=== PATIENT | male | born 1950 | race Caucasian/White ===

== ENCOUNTER 2018-02-06 12:05 | Inpatient (IN) | payer MEDICARE, MEDICAID ==
[~2018-02-06] VITALS: Ht 185.4 cm; Wt 130.2 kg
[~2018-02-06 12:05] MED LIST: ALPR.25T; ALPR0.2550 PO; ATEN100T88; ATEN100T88 PO; CITA20TA4 PO; GABA800T2 PO; HYDR-700; IBUP-15 PO; IBUP-792; KCL10CCR; LISI10TA; LISI10TA PO; LRT10T PO; OMEP20CA6; OMEP20TA2 PO; PHEN-633 PO; PHEN300C; POTA10CA43 PO; TOPI50TA2; TORS20TA2; TORS20TA2 PO; ZLP10T PO; ZOLP10TA
[2018-02-06 14:34] VITALS: BP 114/53
--- NOTE | 2018-02-06 14:52 | ST Cognitive Linguistic Eval ---
Speech Evaluation-General Medical Diagnosis Stroke-Like Symptoms Therapy Diagnosis Therapy Diagnosis: Hyperfunctional Dysphonia; Mild Cognitive Impairment Referral Referring Physician: Dr. Ehsan Roque Reason for Referral: Evaluation/Treatment Cognitive Evaluation Medical History Pertinent Medical History: HTN АНДРЕЙ, left temporal lobectomy secondary to seizure disorder (09/17/2011), tympanoplasty (12/27/2011) Current History The patient was recently admitted following stroke-like symptoms. Per patient, his left face demonstrated edema which caused his left eye to close. Reviewed History: Yes Speech PLF-Current Status Prior Level of Function The patient denied speech, language, or cognition difficulties prior to admission for the stroke-like symptoms at an outside facility. Subjective The patient was seated upright in recliner upon entrance. The patient greeted the clinician and was agreeable to participation in the speech, language, and cognitive evaluation. Language Eval: Auditory Comprehends Simple Yes/No Ques: Functional Indent/Objects Multiple Vazquez: Functional Ident/Pics in Multiple Vazquez: Functional Follows 1-Step Commands: Functional Follows Complex Directions: Functional Follows General Conversations: Functional To note, the patient is hard of hearing on the left side. Per patient, he had a hearing aid, however, misplaced it prior to admission at the outside facility. Language Eval: Verbal Language Completes Spontaneous Greeting: Functional Produces Auto, Serial Info: Functional Imitates Simple Words/Phrases: Functional Word Finding: Mild Requests Basic Needs: Functional States Basic Personal Info: Functional Expresses Complex Ideas: Functional Language Evaluation: Reading The patient stated "reading will easier when I have my glasses here but I don't have any problem doing it." Language Evaluation: Writing Writes to Simple Dictation: Functional (The patient reports his writing is "more sloppy" than it used to be prior to admission at the outside facility.) Cognitive Patient Orientation The patient is independently oriented to self, location, month, year, and day of week. Objective Cognitive Domain Attention: WNL Memory: Mild Problem Solving: Mild Objective Oral Motor/Speech Production The patient demonstrated left facial edema causing asymmetry on this side. The patient's vocal quality is pressed, strained, and harsh with limited breath support. Impression The patient presents with hyperfunctional dysphonia and a mild cognitive impairment, most notably with memory. Per patient, "I have just felt a little foggy since this all started." Communication/Social Cognition Comprehension: 5 Expression: 5 Social Interaction: 5 Problem Solvin Memory: 4 Speech Patient Assess Expression of Ideas/Wants: Exhibits (3) Understanding Vebal Content: Usually Understands (3) Brief Interview-Mental Status: Yes Repetition of Three Words: Three (3) Temporal Orientation: Year: Correct (3) Temporal Orientation: Month: Accurate within 5 days(2) Temporal Orientation: Day: Correct (1) Recall : Wear to say "Sock": No, could not recall (0) Recall : Color: Yes, after cueing (1) Recall : Bed: No, could not recall (0) Speech Short Term Goals Short Term Goals Short Term Goals 1. The patient will demonstrate hyperfunctional voice exercises with 80% accuracy and mild clinician cueing. 2. The patient will demonstrate and recall three functional memory strategies for use at home, independently. Time Frame-STG: One Week Speech Senior Care Goals Senior Care Goals 1. The patient will demonstrated improved expressive communication and cognitive skill for increased function and safety in the least restrictive setting. Time Frame: Three Weeks Comprehension: 5 Expression: 5 Social Interaction: 5 Problem Solvin Memory: 5 Speech-Plan Treatment Plan Speech Therapy Treatment Plan: Continue Plan of Care Continue skilled speech pathology for improved expressive communication. Treatment Duration: Feb 27, 2018 Frequency: Modified Program (IRF) (Four to five times per week.) Estimated Hrs Per Day: .5 hour per day Rehab Potential: Guarded Safety Risks/Education Teaching Recipient: Patient Teaching Methods: Discussion Response to Teaching: Verbalize Understanding Education Topics Provided: Results, Recommendations, Plan of Care Time Speech Therapy Time In: 14:23 Speech Therapy Time Out: 14:43 Total Billed Time: 20 Billed Treatment Time 1, SHAJI GARY Feb 06, 2018 14:52
[2018-02-06] MEDS ORDERED: NITROGLYCERIN 0.4 MG SL TABS BTL 25'S SL PRN (15:00)
[2018-02-06] MEDS ORDERED: ACETAMINOPHEN 500 MG TAB (TYLENOL) PO PRN (15:00)
[2018-02-06] MEDS ORDERED: PNEUMOCOCCAL VACCINE 25 MCG/0.5 ML VIAL IM ONE (15:30)
[2018-02-06] MEDS ORDERED: INFLUENZA TRIvalent 2017-2018 0.5 ML/45 MCG SYR IM ONE ×2 (15:30→17:00)
--- NOTE | 2018-02-06 15:46 | PM&R Post Admission Assessment ---
Post Admission Physician Asses The preadmission screen agrees with the post admission assessment that the patient is a good candidate for inpatient rehabilitation. The patient will have a comprehensive program of inpatient rehabilitation with a goal of maximizing level of functional independence prior to discharge home with [facility]. The patient will have PT/OT ninety minutes per day, each discipline , five days a week for gait, strengthening, conditioning, balance, ADLs, any patient/family/caregiver training as necessary. Speech therapy to do cognitive and speech assessment and treat as indicated 3 to 5 days a week for 2 weeks for 30 to 45 min per session. Rehabilitation nursing to assist with bowel, bladder, skin, wound care, medication administration, pain management. Automatic Beading Lathe Operator to assist with discharge planning, community reentry. SCD's and Hep SUB CUT for DVT prophylaxis. He appears to be well motivated to participate in three hours of therapy a day. He should be able to tolerate three hours of therapy a day from a medical standpoint. He should benefit from the three hours of therapy a day. He has a reasonable discharge plan, reasonable discharge rehabilitation goals and a supportive family. He has various comorbidities that need to be closely monitored with medications and treatments adjusted on a daily basis as needed. These include: [] Barriers to discharge for this patient who had been independent prior to this are for him to be modified independent to supervision for ADLs and mobility skills prior to discharge home with [family], so as to lessen the burden of the caregivers. Risks for this patient include: 1. Fall 2. Fracture 3. DVT 4. Pulmonary embolism 5. Wound infection 6. Skin breakdown 7. Contractures 8. Poorly controlled pain 9. Urinary retention 10. UTI 11. Respiratory infection 12. Aspiration 13. Recurrent seizures 14. Recurrent Otitis media 14. Angina 15. Poorly controlled HTN 16. Worsening depression 17. Poorly controlled DM Estimated Length of Stay: 18 days Prognosis: Rehab prognosis appears good for goal of discharge home with [facility] modified independent to supervision for ADLs and mobility skills. The patient had been Modified Independent and living in his own apartment prior to this He has a supportive daughter nearby [facility] CODE 03.9 Etiologic DX hemiparasis/Plegia left side VALERIE BROWN MD Feb 06, 2018 15:46
[2018-02-06] MEDS ORDERED: ARTIFICAL TEARS 0.4 ML UNIT DOSE (REFRESH PLUS) OU PRN (16:30)
--- NOTE | 2018-02-06 16:32 | HISTORY AND PHYSICAL ---
DATE OF SERVICE: CHIEF COMPLAINT: Difficulty with walking. HISTORY OF PRESENT ILLNESS: The patient is a 67-year-old male with a history of seizures, who underwent a craniotomy and a left temporal lobectomy for uncontrolled seizures at [facility]. This was done more than a year ago. He returned to their facility for assessment and treatment of slurred speech and facial asymmetry. He was negative for stroke. The patient has chronic mastoiditis and was seen by neurology, critical care, ENT, ophthalmology and rehabilitation, medicine. The patient was placed on antibiotic eye ointment and otic antibiotic drops and Bactrim for an ongoing treatment of his various conditions. MRI of the head on 01/31/2018 showed prior left craniotomy and partial left temporal lobectomy with unchanged left temporal encephalomalacia, also prior left mastoidectomy with persistent opacification of few residual left mastoid air cells, a small right mastoid effusion also remains. The patient has been having Botox injections for ptosis and facial pain and he has decreased vision in the left eye. There was no evidence of acute infarct on MRI. No orbital mass or evidence of optic neuritis. As the patient has residual left-sided weakness, he is left hand dominant, he had been independent, but disabled prior to this, living in an apartment in [place], [place]. Dr. Manica is his [facility] PCP. He has seen cardiology here in the past for coronary artery disease and has had an echocardiogram and cardiac catheterization in the past. Currently, he requires assistance for his ADLs and mobility skills. 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 PAST SURGICAL HISTORY: Left temporal lobectomy for uncontrolled seizures as per above, mastoidectomy on the left, tympanoplasty, craniectomy, infected bone flap removal, right ankle surgery, appendectomy, carpal tunnel release on the right, cataract extraction, bilateral tonsillectomy, rotator cuff repair on the left, vagal nerve stimulation. ALLERGIES: No known medication allergies. FAMILY HISTORY: Noncontributory. SOCIAL HISTORY: He is , lives alone. REVIEW OF SYSTEMS: Ten-point review of systems significant for left-sided weakness, decreased vision left eye, neuropathic pain, left side of body swelling, periorbital area and facial pain. MEDICATIONS: Tylenol 650 mg p.o. q.4 hours as needed for pain, allopurinol 100 mg p.o. daily, amlodipine 5 mg p.o. daily, enteric-coated aspirin 81 mg p.o. every day, atenolol 100 mg p.o. daily, Lipitor 20 mg p.o. at bedtime, baclofen 10 mg p.o. t.i.d., Refresh eyedrops 1 drop to both eyes four times daily, tofogliflozin 10 mg p.o. daily, Colace 100 mg p.o. b.i.d., erythromycin eye ointment apply to both eyes at bedtime, Proscar 5 mg p.o. daily, gabapentin 800 mg p.o. q.8 hours, Amaryl 2 mg p.o. b.i.d., heparin subq 5000 units q.8 hours, hydrocodone/APAP 5/325 one to two tablets p.o. q.4 hours as needed for pain, ibuprofen 600 mg p.o. q.12 hours as needed for mild pain, Januvia 100 mg p.o. daily, Lidoderm patch apply topically to affected area and remove in 12 hours, lisinopril 20 mg p.o. daily, Claritin 10 mg p.o. daily, Meloxicam 7.5 mg p.o. daily, metformin 500 mg p.o. b.i.d., Medrol Dosepak take as directed and taper for 6 days, Remeron 45 mg p.o. at bedtime, nitroglycerin 0.4 mg sublingual p.r.n. chest pain, Floxin four drops in affected ear as directed twice daily, omeprazole 20 mg p.o. daily, phenantoin sustained release 100 mg 3 capsules daily, KCl 20 mEq p.o. daily, Senokot-S 1 tablet p.o. b.i.d., Zoloft 300 mg p.o. q.a.m., Demadex 20 mg p.o. b.i.d., Bactrim-DS 1 tablet p.o. b.i.d. for 14 days. PHYSICAL EXAMINATION: GENERAL: Significant for somewhat obese male, appearing his stated age, sitting in a chair complaining of left-sided pain and weakness, no acute distress. VITAL SIGNS: He is afebrile, respirations 22, blood pressure 114/53, O2 sat 96% on room air. HEENT: Speech is somewhat slowed, but comprehensible. He has ptosis left periorbital area and swelling with decreased vision. Vision is grossly intact on the right. Hearing is grossly intact. No oral lesion is noted. NECK: Supple without mass. CARDIOVASCULAR: Regular rate and rhythm. RESPIRATORY: Chest is clear. ABDOMEN: Obese, soft, benign. Bowel sounds present. EXTREMITIES: Trace edema both ankles, no calf tenderness. MUSCULOSKELETAL: He has functional passive range of motion in all 4 extremities. NEUROLOGIC: Cognition appears mildly slowed, but he is alert and oriented. Sensation, he has a neuropathic type pain and sensitivity over the left face and arm and leg. He has a mild left hemiparesis on his dominant side as compared to the right Strength 2+/5 LUE. RLE 5/5 RUE 4/5 Left Quad 3/5 Hip flex 2/5 lafte ankle 2/5 . IMPRESSION: 1. Left hemiparesis with a resulting decline in functional independence. 2. Status post craniotomy remote for left temporal lobectomy for treatment of intractable seizures. 3. Left mastoiditis, status post mastoidectomy. 4. Chronic otitis media, left ear, on medication. 5. Anxiety/depression, followed by psychiatry at [facility], on medication. 6. Left macular hole and bilateral blepharitis edema with decreased vision. 7. Chronic migraines, status post craniectomy, on medication. 8. Diabetes mellitus, controlled with medication. 9. Remote history of suicide attempt. 10. Coronary artery disease, status post myocardial infarction. 11. Benign prostatic hypertrophy. 12. Obstructive sleep apnea on continuous positive airway pressure at home. PLAN: The patient will have a comprehensive program of inpatient rehabilitation with goal of maximizing level of functional independence prior to discharge home. The patient will have PT and OT 90 minutes per day each day with overall plan as per post-admission physician evaluation, see that separate document. Speech therapy to do cognitive, speech, swallow assessment and treat as indicated. Rehabilitation nursing to assist with bowel, bladder, skin care, medication administration, pain management. information services consultant to assist with discharge planning, community reentry. Continue current medications. Some of these may not be on this facility's formulary and the patient may have to use his own at least temporarily. Follow up with his physicians at [facility] upon discharge. Follow up with Dr. Mancia, his PCP, upon discharge. We will ask Dr. Nguyen to assist with medical management while the patient is on unit. ESTIMATED LENGTH OF STAY: Eighteen days. PROGNOSIS: Rehab prognosis appears good for goal of discharging home at prior level of function which was modified independent with a single-point cane. DIET: Carb consistent. CODE STATUS: Full code. We will check Accu-Cheks b.i.d. and more often if necessary. The patient has a supportive daughter and the patient is reported to [place] [facility] [place]. We will follow up with school social worker regarding support available there. Job ID: [id number] DocumentID: [id number] Dictated Date: 02/06/2018 15:37:01 Printer Assistant Date: 02/06/2018 16:32:29 Dictated By: VALERIE BROWN MD [facility]
[2018-02-06] MEDS: TORSEMIDE 20 MG (DEMADEX) TAB PO SCH (17:05)
[2018-02-06] MEDS: metFORMIN 500 MG (GLUCOPHAGE) TAB PO SCH (17:05)
[2018-02-06] MEDS: TRIM/SULFAMETH 160/800 (SEPTRA DS) TAB PO SCH (17:05)
[2018-02-06] MEDS: GLIMEPIRIDE 2 MG (AMARYL) TAB PO SCH (17:05)
[2018-02-06] MEDS: ARTIFICAL TEARS 0.4 ML UNIT DOSE (REFRESH PLUS) OU SCH ×2 (17:10→21:32)
[2018-02-06 18:29] VITALS: BP 112/55
[2018-02-06] MEDS ORDERED: ATORVASTATIN 40 MG (LIPITOR) TABLET PO SCH (21:00)
[2018-02-06] MEDS: MIRTAZAPINE 15 MG (REMERON) TAB PO SCH (21:29)
[2018-02-06] MEDS: NEOMY/POLYM/HC (CORTISPORIN) 10 ML BTL OT SCH (21:29)
[2018-02-06] MEDS: ATORVASTATIN 20 MG (LIPITOR) TABLET PO SCH (21:30)
[2018-02-06] MEDS: GABAPENTIN 600 MG (NEURONTIN) TAB PO SCH (21:30)
[2018-02-06] MEDS: SENNA W/DOCUSATE (SENOKOT S) TABLET PO SCH (21:31)
[2018-02-06] MEDS: DOCUSATE SODIUM 100 MG (COLACE) CAP PO SCH (21:31)
[2018-02-06] MEDS: BACLOFEN 10 MG (LIORESAL) TAB PO SCH (21:31)
[2018-02-06] MEDS: inSUlin (REGULAR) HUMAN 1 UNIT/0.01 ML (CHARGE PER UNIT) SC SCH (21:48)
[2018-02-06] MEDS: ERYTHROMYCIN OPHTH OINT 1 GM (SINGLE USE) TUBE OP SCH (21:49)
[2018-02-06] MEDS: LIDOCAINE PATCH REMOVAL TP SCH (21:49)
[2018-02-07 06:00] VITALS: BP 97/56
[2018-02-07] MEDS: predniSONE 10 MG TAB PO SCH (06:24)
[2018-02-07] MEDS: GLIMEPIRIDE 2 MG (AMARYL) TAB PO SCH ×2 (06:24→17:05)
[2018-02-07] MEDS: TORSEMIDE 20 MG (DEMADEX) TAB PO SCH ×2 (06:25→17:05)
[2018-02-07] MEDS: TRIM/SULFAMETH 160/800 (SEPTRA DS) TAB PO SCH ×2 (06:25→17:05)
[2018-02-07] MEDS: LINAGLIPTIN (TRADJENTA) 5 MG TABLET PO SCH (06:25)
[2018-02-07] MEDS: KCL 20 MEQ TAB (K-DUR) PO SCH (06:25)
[2018-02-07] MEDS: GABAPENTIN 600 MG (NEURONTIN) TAB PO SCH (06:25)
[2018-02-07] MEDS: metFORMIN 500 MG (GLUCOPHAGE) TAB PO SCH ×2 (06:25→17:06)
[2018-02-07] MEDS: PANTOPRAZOLE 20 MG TABLET (PROTONIX) PO SCH (06:26)
[2018-02-07] MEDS: inSUlin (REGULAR) HUMAN 1 UNIT/0.01 ML (CHARGE PER UNIT) SC SCH ×4 (06:34→21:10)
[2018-02-07] MEDS: FINASTERIDE (PROSCAR) 5 MG TAB PO SCH (09:00)
[2018-02-07] MEDS ORDERED: MELOXICAM 7.5 MG (MOBIC) TABLET PO SCH (09:00)
[2018-02-07 09:52] VITALS: BP 124/64
[2018-02-07] MEDS: ASPIRIN E.C. 81 MG (ECOTRIN) TAB PO SCH (09:52)
[2018-02-07] MEDS: lisINopril 20 MG (PRINIVIL) TABLET PO SCH (09:52)
[2018-02-07] MEDS: ALLOPURINOL 100 MG (ZYLOPRIM) TAB PO SCH (09:52)
[2018-02-07] MEDS: SERTRALINE 100 MG (ZOLOFT) TAB PO SCH (09:53)
[2018-02-07] MEDS: BACLOFEN 10 MG (LIORESAL) TAB PO SCH ×3 (09:53→21:10)
[2018-02-07] MEDS: amLODIPine 5 MG (NORVASC) TAB PO SCH (09:53)
[2018-02-07] MEDS: ATENOLOL 50 MG (TENORMIN) TAB PO SCH (09:53)
[2018-02-07] MEDS: DOCUSATE SODIUM 100 MG (COLACE) CAP PO SCH ×2 (09:53→21:13)
[2018-02-07] MEDS: PHENYTOIN 100 MG (DILANTIN) CAP PO SCH (09:53)
[2018-02-07] MEDS: LORATADINE (CLARITIN) 10 MG TAB PO SCH (09:53)
[2018-02-07] MEDS: ARTIFICAL TEARS 0.4 ML UNIT DOSE (REFRESH PLUS) OU SCH ×4 (09:54→21:13)
[2018-02-07] MEDS: SENNA W/DOCUSATE (SENOKOT S) TABLET PO SCH ×2 (09:54→21:10)
[2018-02-07] MEDS: LIDOCAINE (LIDODERM) 5% PATCH TOP SCH (09:54)
[2018-02-07] MEDS: NEOMY/POLYM/HC (CORTISPORIN) 10 ML BTL OT SCH ×4 (09:55→21:09)
--- NOTE | 2018-02-07 11:13 | Occupational Therapy Eval ---
OT Evaluation-General/PLF Medical Diagnosis Admission Date Feb 06, 2018 at 14:20 Medical Diagnosis: Stroke-Like Symptoms Onset Date: Jan 30, 2018 Therapy Diagnosis Therapy Diagnosis: Left sided weakness Height/Weight Height (Feet): 6 Height (Inches): 1.00 Weight (Pounds): 278 Weight (Ounces): 9.0 Precautions Precautions/Isolations: Fall Prevention, Standard Precautions Safety Interventions: Bed Exit Alarm Weight Bear Status Weight Bearing Restriction: Weight Bearing/Tolerated Referral Physician: Dr. Roque Referral Reason: Activity Tolerance, Self Care, Evaluation/Treatment, Strengthening/ROM Medical History Pertinent Medical History: Arthritis, CAD, HTN, MA Additional Medical History Craniotomy, Seizures, chronic mastoiditis, Left partial lobectomy to stop seizures Current History Pt. states he had gradual weakness on left side. Had MRI to rule out CVA. Reviewed History: Yes Social History Home: Apartment Current Living Status: Alone Entry Into Home: Level Entry ADL-Prior Level of Function ADL PLOF Comments Pt. states that he was independent with basic self care skills. States that he is able to ambulate in his apartment, but has started falling a lot. States that his left leg "just gives out." Pt. has a cane but does not like to use it. DME/Equipment: Tub/Shower DME/Equipment Comments Pt. has a cane. No other equipment. Drive Self: Yes OT Current Status Subjective Pt. states that he is sore, but does not report pain. Does report numbness and tingling in feet due to neuropathy. Appearance Pt. in bed. Agrees to work with OT. Mental Status/Objective Patient Orientation: Person, Place Current Hand Dominance: Left Upper Extremity ROM Right- WFL Left- Pt. is able to flex left shoulder to approximately 100 degrees. Upper Extremity Coordination Impaired with lag in left UE. However, pt. states that he still is able to brush his teeth and feed self with left UE. Upper Extremity Strength Pt. demonstrates 4/5 right UE strength Left UE strength 2+/5 throughout. ADL-Treatment Functional [place] Measure 0=Not Assessed/NA 4=Minimal Assistance 1=Total Assistance 5=Supervision or Setup 2=Maximal Assistance 6=Modified [place] 3=Moderate Assistance 7=Complete IndependenceIRFPAI Quality Coding Scale 6 Independent with activity with or without an assistive device 5 Patient requires set up or clean up by helper. Patient completes activity by themselves 4 Supervision or touching assist (CGA). Shiloh provide cues , steadying assist 3 The helper provides less than half the effort to complete the activity 2 The helper provides more than half the effort to complete the activity 1 Dependent. The helper does all the effort to complete an activity 7 Patient refused to complete or attempt activity 9 The patient did not perform the activity before the current illness or injury 88 Not attempted due to Medical conditions or safety concerns Grooming (FIM): 5 (SBA to brush teeth and hair at sink.) Oral Hygiene (QC): 4 Bathing (FIM): 3 (Pt. requires assist to wash rear ahsan area and assist in stance. Pt. able to wash all other parts. Pt. unable to shower due to having heart monitor on.) Shower/Bathe Self (QC): 3 Upper Body Dressing (FIM): 5 Upper Body Dressing (QC): 4 Lower Body Dressing (FIM): 3 (Pt. is able to thread underwear and pants over feet, but requires assist to stand and assist in stance to pull down pants over hips. Pt. able to don/doff socks.) Lower Body Dressing (QC): 3 On/Off Footwear (QC): 3 Toileting (FIM): 5 (Set up to use urinal.) Transfers (B, C, W/C) (FIM): 3 (Mod assist overall for supine-sit, and then sit -stand and transfer to wheelchair.) Other Treatments OT/PT co-treat due to pt fatigue level, and need for skilled assistance. OT focused on ADL treatment while PT focused on mobility and LE strengthening. Pt. utilized overhead harness this date to ambulate out of wheelchair. Please see PT note for distance. Noted pt. had difficulty with balance and legs were "shaky." OT then assisted pt. on side of bed with ADL training and bathing task. Will shower pt. when off heart monitor. Pt. required multiple rest breaks due to fatigue. Would benefit from skilled rehab stay and treatment in all areas. Education OT Patient Education: Correct positioning, Exercise program, Modified ADL techniques, Progress toward Goal/Update tx plan, Purpose of tx/functional activities, Reviewed precautions, Rehab process, Transfer techniques, W/C management Teaching Recipient: Patient Teaching Methods: Demonstration, Discussion Response to Teaching: Verbalize Understanding, Return Demonstration OT Short Term Goals Short Term Goals Time Frame: Feb 14, 2018 Eating(FIM): 6 Grooming(FIM): 6 Bathing(FIM): 5 Upper Body Dressing(FIM): 5 Lower Body Dressing(FIM): 5 Toileting(FIM): 5 Transfers (B,C,W/C) (FIM): 5 Toilet/Commode Transfer(FIM): 5 Shower Transfer(FIM): 4 Additional Short Term Goals: 1-Demonstrate ADL Tasks, 2-Verbalize Understanding , 3-ImproveStrength/Juan José 1=Demonstrate adherence to instructed precautions during ADL tasks. 2=Patient will verbalize/demonstrate understanding of assistive devices/ modifications for ADL. 3=Patient will improve strength/tolerance for activity to enable patient to perform ADL's. OT Chcf Goals Business Machine Operator Goals Time Frame: Feb 21, 2018 Eating (FIM): 6 Eating (QC): 6 Groomin Oral Hygiene (QC): 6 Bathing(FIM): 6 Shower/Bathe Self (QC): 6 Upper Body Dressing(FIM): 6 Upper Body Dressing (QC): 6 Lower Body Dressing(FIM): 6 Lower Body Dressing (QC): 6 On/Off Footwear (QC): 6 Toileting(FIM): 6 Toileting Hygiene (QC): 6 Transfers (B,C,W/C) (FIM): 6 Toilet/Commode Transfer(FIM): 6 Toilet/Commode Transfer (QC): 6 Comprehension(FIM): 5 Expression (FIM): 5 Social Interaction(FIM): 5 Problem Solving(FIM): 5 Memory(FIM): 5 1=Demonstrate adherence to instructed precautions during ADL tasks. 2=Patient will verbalize/demonstrate understanding of assistive devices/ modifications for ADL. 3=Patient will improve strength/tolerance for activity to enable patient to perform ADL's. OT Education/Plan Problem List/Assessment Assessment: Decreased Activ Tolerance, Decreased UE Strength, Dependent Transfers, Impaired Bed Mobility, Impaired Coordination, Impaired Funct Balance , Impaired I ADL's, Impaired Self-Care Skills, Restricted Funct UE ROM Discharge Recommendations Plan/Recommendations: Continue POC Therapy D/C Recommendations: Home w/ Family Support, Occupational Therapy Home Care, Scheduled Assistance Equpiment Recommendations-D/C: Extended Bath Bench, Hip Kit Comment Pt. will likely need a walker. Target Placement Home with assist. Treatment Plan/Plan of Care Treatment,Training & Education: Yes Patient would benefit from OT for education, treatment and training to promote independence in ADL's, mobility, safety and/or upper extremity function for ADL' s. Plan of Care: ADL Retraining, Functional Mobility, Group Exercise/Act as Ind, UE Funct Exercise/Act Treatment Duration: Feb 21, 2018 Frequency: At least 5 of 7 days/Wk (IRF) Estimated Hrs Per Day: 1.5 hours per day Agreement: Yes Rehab Potential: Good Time/GCodes Start Time: 08:35 Stop Time: 10:15 Total Time Billed (hr/min): 90 Billed Treatment Time 2398-2527 1, EV OT eval [id number] PT eval no charge [id number] C0-treat with PT. Please see above note for findings and goals. DAGMAR MURGUIA OT Feb 07, 2018 11:13
[2018-02-07] MEDS: GABAPENTIN 400 MG (NEURONTIN) CAP PO SCH ×2 (13:27→21:10)
--- NOTE | 2018-02-07 13:31 | Physical Therapy Evaluation ---
PT Evaluation-General Medical Diagnosis Admission Date Feb 06, 2018 at 14:20 Medical Diagnosis: Stroke-Like Symptoms Onset Date: Jan 30, 2018 Therapy Diagnosis Therapy Diagnosis: gait and balance instability Height/Weight Height (Feet): 6 Height (Inches): 1.00 Weight (Pounds): 278 Weight (Ounces): 9.0 Precautions Precautions/Isolations: Fall Prevention, Standard Precautions Weight Bear Status Weight Bearing/Tolerated Weight Bearing/Tolerated Referral Physician: Dr. Roque Reason for Referral: Evaluation/Treatment Medical History Pertinent Medical History: Arthritis, CAD, HTN, [place] Additional Medical History suicide attempt, left temporal lobectomy for seizure control 1 yr ago, falls Current History weakness left leg, poor balance, falls Reviewed History: Yes Social History Home: Apartment Current Living Status: Alone Entry Into Home: Level Entry Prior/Core FIM Prior Level of Function Functional Williamson Measure 0=Not Assessed/NA 4=Minimal Assistance 1=Total Assistance 5=Supervision or Setup 2=Maximal Assistance 6=Modified Williamson 3=Moderate Assistance 7=Complete Williamson Bed Mobility: 6 Transfers (B,C,W/C) (FIM): 6 Gait: 6 PT Evaluation-Current Subjective Patient has been at [facility] since the beginning of January due to unknown progression of (L) side weakness, facial droop, and slurred speech. Findings were negative for CVA. He reports a 4-5 month history of progressive falls with 1-2 per week. Objective Patient Orientation: Normal For Age Problem Solving: Good ROM/Strength ROM Upper Extremities see OT ROM Lower Extremities lacks full knee extension on the (L) Strength Upper Extremities see OT notes Strenght Lower Extremities (R) LE is 5/5 through out, (L) quads 3/5, hip flexion 2/5, (L) ankle DF 2/5, (L ) hip abd 2/5 Neuromuscular (Tone, Coordination, Reflexes) impaired neuro control of the left upper and lower extremity. Lacks fine motor coordination, unable to sustain rhythmic reciprocal movements in the left upper or lower extremity Sensory Vision: Functional Hearing: Functional Hand Dominance: Right Sensation Right Upper Extremit: Intact Sensation Left Upper Extremity: Intact Sensation Right Lower Extremit: Impaired Sensation Left Lower Extremity: Impaired Sensation Lower Extremities Pt has neuropathy (B) LEs Transfers Functional Williamson Measure 0=Not Assessed/NA 4=Minimal Assistance 1=Total Assistance 5=Supervision or Setup 2=Maximal Assistance 6=Modified Williamson 3=Moderate Assistance 7=Complete IndependenceIRFPAI Quality Coding Scale 6 Independent with activity with or without an assistive device 5 Patient requires set up or clean up by helper. Patient completes activity by themselves 4 Supervision or touching assist (CGA). [place] provide cues , steadying assist 3 The helper provides less than half the effort to complete the activity 2 The helper provides more than half the effort to complete the activity 1 Dependent. The helper does all the effort to complete an activity 7 Patient refused to complete or attempt activity 9 The patient did not perform the activity before the current illness or injury 88 Not attempted due to Medical conditions or safety concerns Transfers (B, C, W/C) (FIM): 3 Scootin Rollin Roll Left to Right (QC): 3 Supine to/from Sit: 4 Sit to/from Stand: 4 Sit to Lying (QC): 3 Lying to Sitting/Side of Bed(Q: 3 Sit to Stand (QC): 3 Chair/Efk-zk-Ieiwa Xfer(QC): 3 Car Transfer (QC): 88 unsafe for car transfers, unexpected buckling of the (L) knee Gait Does the Patient Walk?: Yes Mode of Locomotion: Both Anticipated Mode of Locomotion: Both Gait (FIM): 1 Distance (FIM): 8=661-66 ft Walk 10 feet (QC): 2 Walk 50 ft with 2 Turns(QC): 1 Walk 150 ft (QC): 1 Walking 10ft/uneven surface-QC: 88 Distance: 25 Gait Level of Assist: 3 Gait Persons Needed: 2 Gait Assistive Device: FWW Comments/Gait Description walked using the solostep harness system and a FWW. Patient has unexpected giving way of the left knee. He has spasmic movements in the trunk and LE when fatigued Wheelchair Training Does the Pt Use a Wheelchair?: Yes Wheelchair (FIM): 5 Wheelchair Distance (FIM): 3=150 ft Distance: 150 Wheelchair Level of Assist: 5 Wheel 50 ft with 2 turns (QC): 5 Wheel 150 ft (QC): 5 Type of Wheelchair: Manual (5) Stairs Stairs (FIM): 0 #of Steps: 0 1 Step (curb) (QC): 88 4 Steps (QC): 88 12 Steps (QC): 88 If not tested on admit;explain unsafe for stair ambulation at time of evaluation. Pt has intermittent buckling of the (L) knee that would place him at risk of fall when attempting stairs. Balance Sitting Static: Good Sitting Dynamic: Good Standing Static: Poor Standing Dynamic: Poor Picking up an Object (QC): 88 Assessment/Needs Patient demonstrates overall strength secondary to prolonged hospitalization. He has weakness in the left lower extremity and spasms in the trunk and left LE that are of unknow origin but that place patient at risk for falls. He has unsteady and unsafe transfers. Pt will benefit from skilled therapy to promote safe transfers and safe ambulation in his home setting. Rehab Potential: Good Post Rehab Potential-Barriers: unknow cause of left side weakness PT Short Term Goals Short Term Goals Time Frame: Feb 14, 2018 Transfers (B,C,W/C) (FIM): 5 Gait (FIM): 4 Distance (FIM): 3=150 ft Gait Distance Comment: 150ft with FWW Gait Level of Assist: 4 Gait Assistive Device: FWW PT Alf Goals Forest Science Professor Goals PT Alf Goals Time Frame: Feb 28, 2018 Transfers (B,C,W/C) (FIM): 6 Sit to Lying (QC): 6 Lying-Sitting on Side/Bed(QC): 6 Sit to Stand (QC): 6 Rollin Roll Left to Right (QC): 6 Chair/Vmg-xd-Thvsw Xfer(QC): 6 Car Transfer (QC): 4 Does the Patient Walk: Yes Gait (FIM): 5 Gait distance (FIM): 6=731-52 ft Distance: 50 Walk 10 feet (QC): 6 Walk 10ft-Uneven Surface(QC): 6 Walk 50ft with 2 Turns (QC): 5 Walk 150 ft (QC): 5 Gait Level of Assist: 6 Gait Assistive Device: FWW Stairs (FIM): 3 # of Steps: 5 1 Step (curb) (QC): 5 4 Steps (QC): 4 12 Steps (QC): 88 Picking up an Object (QC): 2 PT Plan Problem List Problem List: Activity Tolerance, Functional Strength, Safety, Balance, Gait, Transfer Treatment/Plan Treatment Plan: Continue Plan of Care Treatment Plan: Bed Mobility, Concurrent Therapy, Functional Activity Juan José, Functional Strength, Group Therapy, Gait, Safety, Therapeutic Exercise, Transfers Treatment Duration: Feb 28, 2018 Frequency: At least 5 of 7 days/Wk (IRF) Estimated Hrs Per Day: 1.5 hours per day Patient and/or Family Agrees t: Yes Safety Risks/Education Patient Education: Gait Training, Transfer Techniques, Steps, Safety Issues Teaching Recipient: Patient Teaching Methods: Demonstration Time/GCodes Time In: 845 Time Out: 1015 Total Billed Treatment Time: 90 Total Billed Treatment evaluation high complexity 10 minutes, gait 30 minutes, FA 50 minutes Co treatment with Occupational therapy to improve efficacy of treatment. While OT was working on fine motor tasks, PT was working on gross motor including gait and standing balance. Co treatment was beneficial in providing patient safety and allowing to watch complex motor movements in high sensory demand situations. BHAVESH FLORES PT Feb 07, 2018 13:31
[2018-02-07 17:05] VITALS: BP 100/62
[2018-02-07] MEDS: ATORVASTATIN 20 MG (LIPITOR) TABLET PO SCH (21:10)
[2018-02-07] MEDS: MIRTAZAPINE 15 MG (REMERON) TAB PO SCH (21:10)
[2018-02-07] MEDS: LIDOCAINE PATCH REMOVAL TP SCH (21:13)
[2018-02-07] MEDS: ERYTHROMYCIN OPHTH OINT 1 GM (SINGLE USE) TUBE OP SCH (21:14)
--- OUTSIDE RECORDS SUMMARY | 2018-02-08 04:58 | XMS REPORT | Continuity of Care Document ---
Author Author [employer] Organization [facility] Address Unknown Phone Unavailable Care Team Providers Care Nursing Program Chair Name Role Phone [employer] Unavailable Unavailable Problems Medications Allergies, Adverse Reactions, Alerts Immunizations Results Vital Signs Encounters Location Location Details Encounter Type Encounter Number Reason For Visit Attending Provider ADM Date DC Date Status Source OUTPATIENT [id number] PETER GRIMALDO 07/02/2017 07/02/2017 Active [facility] OUTPATIENT [id number] PETER GRIMALDO 08/27/2017 Active [facility] OUTPATIENT [id number] HAYLEY HAMILTON 09/11/20172016 Active [facility] OUTPATIENT [id number] HAYLEY HAMILTON 09/11/2017 Active [facility] OUTPATIENT [id number] PETER GRIMALDO 10/01/2017 Active [facility] OUTPATIENT [id number] PETER GRIMALDO 12/17/2017 Active [facility] OUTPATIENT [id number] PETER GRIMALDO 01/07/2018 Active [facility] INPATIENT [id number] CATERINA ZHANG 01/30/2018 02/06/2018 Active [facility] O Active [facility] Procedures Plan of Care Social History Assessment and Plan Family History Advance Directives Functional Status
--- OUTSIDE RECORDS SUMMARY | 2018-02-08 04:59 | XMS REPORT | Encounter Summary ---
Author Author [facility] Organization [facility] Address Unknown Phone Unavailable Care Team Providers Care Personnel Analyst Name Role Phone Michael Caro MD Unavailable Tia España MD Unavailable Meera Ruano MD Unavailable Sonia Cano MD Unavailable Telma Malclom SUBASSEMBLER-BC Unavailable Vincent Quintero MD Unavailable Unavailable Con Rosas MD Unavailable Jesus Tai MD Unavailable Unavailable Murray Russo MD Unavailable Codi Aguirre Unavailable Unavailable Mckay Frias MD Unavailable Siddharth Cortes MD Unavailable Leatha Rajan RN Unavailable Unavailable Nuria Daniel RN Unavailable Unavailable Kati Guerrero SUBASSEMBLER Unavailable Dorys Colunga RN Unavailable Jasmyn Carrasco Unavailable Unavailable Bhavana Haddad SUBASSEMBLER-TAILING MACHINE OPERATOR Unavailable Liza Oglesby MA,CCC-PRESS SUPERVISOR Unavailable Unavailable Edilberto Matute MD Unavailable Unavailable Mckay Walters MD Unavailable Marianne Rosario MA,CCC-PRESS SUPERVISOR Unavailable Unavailable Clint Ayoub RN Unavailable Unavailable Geetha Diez MA,CCC-PRESS SUPERVISOR Unavailable Unavailable Mckay Nathan PA-C Unavailable Evert Jefferson MD Unavailable Serenity Cartre MD Unavailable Piedad Oliver RN Unavailable Unavailable Vivi Nelson MD Unavailable Morena Scanlon MD Unavailable Clarence Brink MD Unavailable Janette Jess DO Unavailable Domenic Lizakianna TELLEZ Unavailable Safia Mancia MD PCP Reason for Visit * Reason Comments Test/procedure Holter placed on patient Encounter Details Date Type Department Care Team Description 02/06/2018 Documentation [facility] Shadi Henson Test/ procedure (Holter [address] placed on patient) [place] [address] Social History Tobacco Use Types Packs/Day Years Used Date Never Smoker Smokeless Tobacco: Never Used Alcohol Use Drinks/Week oz/Week Comments No Sex Assigned at Date Recorded Not on file as of this encounter Functional Status Functional Status Response Date of Assessment Does the patient have a hearing impairment: No 02/06/2018 Does the patient have a visual impairment: No 02/06/2018 Does the patient have impaired ambulation: No 02/06/2018 Does the patient have an activity of daily living No 02/06/2018 (ADL) impairment: Does the patient have an instrumental activity of No 02/06/2018 daily living (IADL) impairment: Cognitive Status Response Date of Assessment Does the patient have a cognitive impairment: No 02/06/2018 as of this encounter Progress Notes * Shadi Henson - 02/06/2018 11:41 AM MACHINE TENDER Ordering Physician:Dr. Evy Jama Number:[id number] Hours:48 Dx:PVC's Location:[facility] applied Holter:TH in this encounter Plan of Treatment Not on fileas of this encounter Visit Diagnoses Not on filein this encounter
--- OUTSIDE RECORDS SUMMARY | 2018-02-08 04:59 | XMS REPORT | Clinical Summary ---
Author Author [facility] Organization [facility] Address Unknown Phone Unavailable Care Team Providers Care General Internal Medicine Physician Name Role Phone Michael Caro MD Unavailable Tia España MD Unavailable Meera Ruano MD Unavailable Sonia Cano MD Unavailable Telma Malcolm HYSTER MACHINE OPERATOR-BC Unavailable Vincent Quintero MD Unavailable Unavailable Con Rosas MD Unavailable Jesus Tai MD Unavailable Unavailable Murray Russo MD Unavailable Codi Aguirre Unavailable Unavailable Mckay Frias MD Unavailable Siddharth Cortes MD Unavailable Leatha Rajan RN Unavailable Unavailable Nuria Daniel RN Unavailable Unavailable Kati Guerrero HYSTER MACHINE OPERATOR Unavailable Dorys Colunga RN Unavailable Jasmyn Carrasco Unavailable Unavailable Bhavana Haddad HYSTER MACHINE OPERATOR-JOB HONER Unavailable Liza Oglesby MA,CCC-BANDOLEER PACKER Unavailable Unavailable Edilberto Matute MD Unavailable Unavailable Mckay Walters MD Unavailable Marianne Rosario MA,CCC-BANDOLEER PACKER Unavailable Unavailable Clint Ayoub RN Unavailable Unavailable Geetha Diez MA,CCC-BANDOLEER PACKER Unavailable Unavailable Mckay Nathan PA-C Unavailable Evert Jefferson MD Unavailable Serenity Carter MD Unavailable Piedad Oliver RN Unavailable Unavailable Vivi Nelson MD Unavailable Morena Scanlon MD Unavailable Clarence Brink MD Unavailable JanetteTonelj NAIR Unavailable Domenic Liza AUD Unavailable Safia Mancia MD PCP Source Comments Some departments are not documenting in the electronic medical record. If you do not see the information that you expected, contact Release of Information in the Health Information Management department at [phone] for further assistance in locating additional records.[facility] Allergies No Known Allergies Current Medications Prescription Sig. Disp. Refills Start End Date Status Date atenolol (TENORMIN) 100 Take 1 Tab by mouth 30 Tab 0 01/10/20 Active mg tablet daily. 12 loratadine (CLARITIN) 10 Take 10 mg by mouth Active mg tablet daily. omeprazole DR(+) Take 20 mg by mouth Active (PRILOSEC) 20 mg capsule daily. amLODIPine (NORVASC) 5 mg Take 5 mg by mouth daily. Active tablet potassium chloride SR Take 20 mEq by mouth Active (K-DUR) 20 mEq tablet daily. torsemide(+) (DEMADEX) 20 Take 20 mg by mouth twice Active mg tablet daily. lisinopril (PRINIVIL; Take 20 mg by mouth Active ZESTRIL) 10 mg tablet daily. allopurinol (ZYLOPRIM) Take 100 mg by mouth Active 100 mg tablet daily. ibuprofen (MOTRIN) 600 mg Take 600 mg by mouth Active tablet every 12 hours as needed. finasteride (PROSCAR) 5 TAKE 1 TABLET BY MOUTH 90 Tab 3 20 Active mg tablet ONCE DAILY 16 baclofen (LIORESAL) 10 mg Take 10 mg by mouth three Active tablet times daily. metFORMIN (GLUCOPHAGE) Take 500 mg by mouth Active 500 mg tablet twice daily with meals. sitaGLIPtin (JANUVIA) 100 Take 100 mg by mouth Active mg tab tablet daily. glimepiride (AMARYL) 2 mg Take 2 mg by mouth twice Active tablet daily. phenytoin SR (DILANTIN) Take 3 capsules by mouth 270 capsule 3 Active 100 mg capsule daily. 17 meloxicam (MOBIC) 7.5 mg Take 1 tablet by mouth 90 tablet 3 10/03/20 Active tabletIndications: Neck daily. 17 pain gabapentin (NEURONTIN) Take 1 tablet by mouth 90 tablet 3 12/29/19 Active 800 mg tablet every 8 hours. 18 mirtazapine (REMERON) 30 Take 1 and 1/2 tablet at 45 tablet 1 Active mg tablet night for mood, anxiety 18 and sleep sertraline (ZOLOFT) 100 Take 300mg in AM (3x 90 tablet 1 01/23/20 Active mg tablet 100mg) for mood, anxiety 18 and skin picking lidocaine (LIDODERM) 5 % Apply 1 patch topically 90 patch 3 01/27/20 Active topical patch to affected area every 24 18 hours. Apply patch for 12 hours, then remove for 12 hours before repeating. dapagliflozin 10 mg tab Take 1 tablet by mouth Active daily. atorvastatin (LIPITOR) 20 Take 1 tablet by mouth at 30 tablet 2 Active mg tablet bedtime daily. 18 trimethoprim/sulfamethoxa Take 1 tablet by mouth 0 02/07/20 02/21/20 Active zole (BACTRIM DS) 160/800 twice daily for 14 days. 18 18 mg tablet acetaminophen (TYLENOL) Take 2 tablets by mouth 0 02/07/20 Active 325 mg tabletIndications: every 4 hours as needed. 18 PAIN carboxymethylcellulose Apply 1 drop to both eyes 02/07/20 Active (REFRESH PLUS) 0.5 % dpet four times daily. 18 heparin (porcine) PF Inject 0.5 mL under the 02/07/20 Active 5,000units/0.5mL skin every 8 hours. DVT 18 injection syringe prophylaxis, continue until mobilizing well docusate (COLACE) 100 mg Take 1 capsule by mouth 180 capsule 3 Active capsule twice daily. 18 senna/docusate Take 1 tablet by mouth 0 02/07/20 Active (SENOKOT-S) 8.6/50 mg twice daily. 18 tablet HYDROcodone/acetaminophen Take 1-2 tablets by mouth 0 02/07/20 Active (NORCO) 5/325 mg tablet every 4 hours as needed 18 erythromycin (ROMYCIN) Apply 0.5 inches to both 0 02/07/20 Active ophthalmic ointment eyes at bedtime daily. 18 aspirin EC 81 mg tablet Take 1 tablet by mouth 90 tablet 3 02/08/20 Active daily. Take with food. 18 nitroglycerin (NITROSTAT) Place 1 tablet under 25 tablet 3 02/07/20 Active 0.4 mg tablet tongue every 5 minutes as 18 needed for Chest Pain. Max of 3 tablets, call 911. methylPREDNIsolone Take medication as 21 tablet 0 02/07/20 Active (MEDROL DOSEPAK) 4 mg directed on package for 6 18 tablet days. Take with food. ofloxacin (FLOXIN) 0.3 % Place 4 drops in affected 0 02/07/20 Active otic solution ear(s) as directed twice 18 daily. Continue until follow up with Dr. Frias on 02/25/18. Discuss at follow up visit. docusate (COLACE) 100 mg Take 1 Cap by mouth twice 60 Cap 0 10/01/20 02/05/20 Discontin capsule daily as needed for 13 18 ued Constipation. VIAGRA 100 mg Take 1 Tab by mouth as 10 Tab 11 12/14/19 02/05/20 Discontin tabletIndications: ED Needed for Erectile 15 18 ued (erectile dysfunction) dysfunction. Take on empty stomach approx 1-4 hrs prior to sexual activity. empagliflozin (JARDIANCE) Take 25 mg by mouth 02/05/20 Discontin 25 mg tab daily. 18 ued lidocaine (LIDODERM) 5 % Apply 1 patch topically 30 patch 2 10/27/20 01/27/20 Discontin topical patch to affected area every 24 17 18 ued hours. Apply patch for 12 hours, then remove for 12 hours before repeating. sertraline (ZOLOFT) 100 Take 3 tablets by mouth 90 tablet 1 12/12/19 01/23/20 Discontin mg tablet daily. 18 18 ued mirtazapine (REMERON) 30 Take 1 tablet by mouth at 30 tablet 1 01/23/20 Discontin mg tablet bedtime daily. 18 18 ued HYDROcodone/acetaminophen Take 1 tablet by mouth 40 tablet 0 01/07/20 02/07/20 Discontin (NORCO) 5/325 mg every 8 hours as needed 18 18 ued tabletIndications: Neck for Pain pain Active Problems Problem Noted Date Other chest pain 02/01/2018 Type 2 diabetes mellitus with other specified complication (HCC) 02/01/2018 PVC (premature ventricular contraction) 02/01/2018 Hygroma 01/31/2018 Chronic migraine 01/07/2018 Status post craniectomy 01/07/2018 Weakness of left lower extremity 09/11/2017 Last Assessment & Plan: Likely multifactorial of knee OA, lumbar radiculopathy and diabetic neuropathy. Will refer to Physical Therapy. Abnormal gait 09/11/2017 Last Assessment & Plan: Gait impairment likely mutifactorial due to DM neuropathy, left leg weakness and inner ear dysfunction. Will refer to physical therapy for gait training. Chronic nonsuppurative otitis media of right ear 12/11/2016 Adjustment disorder with mixed anxiety and depressed mood 10/14/2016 Atypical facial pain 01/10/2016 Skin-picking disorder 10/20/2015 Prostate cancer screening 12/14/2014 Last Assessment & Plan: Provided requisitions for pt to get outside PSA later this week & again in 1 yr. Requested results to be faxed back to my office. 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 Yellow drainage from LT ear for past 2 weeks. Started on Augmentin 875/125 1 q 12 hrs for 14 days. F/U with Dr. 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 Patient has been seizure free since then. L ast Assessment & Plan: No clear seizures since last visit. He did have one episode of altered awareness since last visit. Patient reports he was feeling wobbly. Witness states he was not responsive. Patient reports this was nothing like his typical seizure. It is difficult to determine what this episode represented- hypoglycemia vs pre-syncope vs seizure. Patient will inform me if he has further episodes. Will continue Dilantin for now but I suspect this is impairing his balance. Check dilantin free and total today. Chronic otitis media 07/31/2010 Hearing loss, mixed, bilateral 07/31/2010 Ataxia 02/22/2008 Morbid obesity (HCC) 02/22/2008 АНДРЕЙ (obstructive sleep apnea) 02/22/2008 Neuropathy Peripheral 02/10/2008 Hematuria, gross Overview: Hematuria w/u (March - May 2014) no evidence of malignancy. L ast Assessment & Plan: No evidence of gross or microscopic hematuria. Repeat UA/ Micro ~ May 2016. Enlarged prostate with lower urinary tract symptoms (LUTS) Overview: Cysto (06/13/2104): (+)BPH w/ intravesical median lobe. Started Finasteride -- 06/13/2014. L ast Assessment & Plan: Continue Finasteride. ED (erectile dysfunction) of organic origin Last Assessment & Plan: recently . Not a quality of life issue at this time. Will contact our office if needs new Rx in the future. Encounters Date Type Specialty Care Team Description 02/06/2018 [facility] Cardiology Shadi Henson Test/procedure ( Holter placed on patient) 02/05/2018 [facility] Cardiology Gerry Mccoy MD Arrived Encounter 01/31/2018 Procedure Pass 01/31/2018 Procedure Pass 01/31/2018 Procedure Pass 01/30/2018 [facility] Siddharth Ponce MD Hygroma - Encounter 02/06/2018 01/30/2018 Hospital Radiology Encounter 01/30/2018 Hospital Radiology Encounter 01/30/2018 Hospital Radiology Encounter 01/27/2018 Refill Rehabilitation Medicine Paulina Linton MD 01/07/2018 Procedure visit Rehabilitation Medicine Paulina Linton MD Chronic migraine (Primary Dx); Status post craniectomy; Neck pain 01/07/2018 Orders Only Rehabilitation Medicine Paulina Linton MD 12/29/2017 Refill Rehabilitation Medicine Paulina Linton MD 12/17/2017 Office Visit Rehabilitation Medicine Paulina Linton MD Chronic migraine (Primary Dx); Status post craniectomy; Spondylosis of lumbosacral region without myelopathy or radiculopathy; Baastrup's syndrome from Last 3 Months Family History Medical History Relation Name Comments Other Mother family: History of heart condition, alzheimers,depression Cancer Other Depression Other Heart Attack Other Other Other Relation Name Status Comments Brother Alive Daughter Alive Father Maternal Grandfather Maternal Grandmother Mother Other Paternal Grandfather Paternal Grandmother Son Alive Social History Tobacco Use Types Packs/Day Years Used Date Never Smoker Smokeless Tobacco: Never Used Alcohol Use Drinks/Week oz/Week Comments No Sex Assigned at Date Recorded Not on file Last Filed Vital Signs Vital Sign Reading Time Taken Blood Pressure 121/50 02/06/2018 7:57 AM STONE REPAIRER Pulse 63 02/06/2018 8:57 AM STONE REPAIRER Temperature 36.9 C (98.5 F) 02/06/2018 7:57 AM STONE REPAIRER Respiratory Rate 18 12/17/2017 2:47 PM STONE REPAIRER Oxygen Saturation 97% 02/06/2018 8:00 AM STONE REPAIRER Inhaled Oxygen - - Concentration Weight 133.1 kg (293 lb 6.9 oz) 02/04/2018 7:19 AM STONE REPAIRER Height 185.4 cm (6' 1") 01/31/2018 11:46 AM STONE REPAIRER Body Mass Index 38.71 02/04/2018 7:19 AM STONE REPAIRER Plan of Treatment Health Maintenance Due Date Last Done Comments HEPATITIS C SCREENING 1950 PHYSICAL (COMPREHENSIVE) 1957 EXAM PERTUSSIS VACCINE 1961 TETANUS VACCINE 1967 DILATED EYE EXAM 1968 FOOT EXAM 1968 COLORECTAL CANCER 2000 SCREENING SHINGLES VACCINE 2010 PREVNAR/PNEUMOVAX (#1) 2015 HBA1C 08/03/2018 01/31/2018 INFLUENZA VACCINE 08/31/2018 Procedures Procedure Name Priority Date/Time Associated Diagnosis Comments ECG-SCAN 02/03/2018 Results for this 7:30 AM STONE REPAIRER procedure are in the results section. ECG-SCAN 02/03/2018 Results for this 7:30 AM STONE REPAIRER procedure are in the results section. AK CHEMODERVATE Routine 01/07/2018 Chronic migraine Results for this FACIAL/TRIGEM/CERV MUSC 3:15 PM STONE REPAIRER procedure are in the MIGRAINE results section. from Last 3 Months Results * POC GLUCOSE (02/06/2018 7:57 AM) Only the most recent of 27 results within the time period is included. Component Value Ref Range Glucose, POC 163 (H) 70 - 100 MG/DL Specimen Performing Laboratory MAIN LAB [address] [place], [place] [id number] * CBC AND DIFF (02/06/2018 5:52 AM) Only the most recent of 8 results within the time period is included. Component Value Ref Range White Blood Cells 11.3 (H) 4.5 - 11.0 K/UL RBC 4.31 (L) 4.4 - 5.5 M/UL Hemoglobin 13.2 (L) 13.5 - 16.5 GM/DL Hematocrit 38.6 (L) 40 - 50 % MCV 89.5 80 - 100 FL MCH 30.5 26 - 34 PG MCHC 34.1 32.0 - 36.0 G/DL RDW 15.7 (H) 11 - 15 % Platelet Count 134 (L) 150 - 400 K/UL MPV 8.5 7 - 11 FL Neutrophils 60 41 - 77 % Lymphocytes 31 24 - 44 % Monocytes 6 4 - 12 % Eosinophils 3 0 - 5 % Basophils 0 0 - 2 % Absolute Neutrophil Count 6.80 1.8 - 7.0 K/UL Absolute Lymph Count 3.50 1.0 - 4.8 K/UL Absolute Monocyte Count 0.70 0 - 0.80 K/UL Absolute Eosinophil Count 0.30 0 - 0.45 K/UL Absolute Basophil Count 0.00 0 - 0.20 K/UL Specimen Performing Laboratory Blood MAIN LAB [address] [place] [id number] * PHOSPHORUS (02/06/2018 5:52 AM) Only the most recent of 9 results within the time period is included. Component Value Ref Range Phosphorus 3.0 2.0 - 4.0 MG/DL Specimen Performing Laboratory Blood MAIN LAB [address] [place] [address] * MAGNESIUM (02/06/2018 5:52 AM) Only the most recent of 9 results within the time period is included. Component Value Ref Range Magnesium 2.3 1.6 - 2.6 mg/dL Specimen Performing Laboratory Blood [facility]IN [facility] [address] [place] [address] * BASIC METABOLIC PANEL (02/06/2018 5:52 AM) Only the most recent of 8 results within the time period is included. Component Value Ref Range Sodium 139 137 - 147 MMOL/L Potassium 4.0 3.5 - 5.1 MMOL/L Chloride 107 98 - 110 MMOL/L CO2 25 21 - 30 MMOL/L Anion Gap 7 3 - 12 Glucose 177 (H) 70 - 100 MG/DL Blood Urea Nitrogen 19 7 - 25 MG/DL Creatinine 1.09 0.4 - 1.24 MG/DL Calcium 8.8 8.5 - 10.6 MG/DL eGFR Non >60 >60 mL/min Comment: The eGFR is not validated for use in drug dosing adjustments. Continue to use estimated creatinine clearance per dosing reference text. Please contact the Clinical Pharmacist for questions. eGFR >60 >60 mL/min Comment: The eGFR is not validated for use in drug dosing adjustments. Continue to use estimated creatinine clearance per dosing reference text. Please contact the Clinical Pharmacist for questions. Specimen Performing Laboratory Blood [facility] [address] [place] [address] * DOBUTAMINE MPI STRESS TEST (02/05/2018 9:17 AM) Component Value Ref Range Baseline HR 64 bpm Baseline BP - Sys 126 mmHg Exercise duration (min) 11 min Peak HR 115 bpm Peak BP - Sys 166 mmHg Percent of predicted max 78 % HR Post 1 minute recovery HR 115 bpm Target HR 130 Exercise duration (sec) 25 sec PUL TO PHIL COUNT RATIO 0.49 Stress Dose 3.5 mCi Baseline BP - Oneil 58 mmHg Peak BP - Oneil 85 Study Number [id number] Referring Provider Gerry Mccoy MD Rest Dose 0.9 mCi MPI EF 56 % TID Ratio 0.94 Summed Stress Score 1 Summed Rest Score 0 LV volume 108 mL Nuclear Cardiology In aggregate the current study is low risk in Mortality Risk regards to predicted annual cardiovascular mortality rate. Specimen Performing Laboratory OTHER OUTSIDE LAB Narrative Nuclear Report [facility] Division of Nuclear Cardiac Imaging Consultation Report EXAMINATION:[employer] Gated [id number] Chloride myocardial perfusion single-photon emission computed tomography for viability, resting regional wall function, post stress ejection fraction, and perfusion imaging utilizing dobutamine pharmacological stress. Date of Study:02/05/18 Study #:[id number] ISIS ISIS Billing ID:[id number] Referring Physician:Gerry Mccoy MD Requested by:France Crawford APRN INDICATIONS FOR STUDY (HISTORY):This is a 67 year old male with a history of Hypertension, Diabetes and PVCs.The patient has recently been experiencing chest pain. This study is being done to rule out significant myocardial ischemia. PROCEDURAL DETAILS: The patient received a continuous infusion of intravenous dobutamine beginning with a dose of 10mcg/kg per minute and titrated to 50mcg/kg per minute in 10mcg/kg per minute dosage intervals. Each dosage interval was maintained for 3 minutes. At peak infusion approximately 3.5 mCi of [id number] Chloride was injected intravenously. Throughout the dobutamine stress continuous electrocardiographic monitoring and serial electrocardiograms were obtained as well as intermittent blood pressure recordings. Planar and gated tomographic images were then acquired approximately 5-10 minutes after discontinuation of dobutamine infusion.The patient returned in approximately 4 hours and received an additional intravenous injection of 0.9 mCi of [id number] Chloride as a reinjected dose to assist in the detection of myocardial ischemia and viability. Images were then reacquired and compared to post stress images. FINDINGS: Pharmacological Stress Electrocardiogram:The patient's resting heart rate was 64 bpm and the resting blood pressure was 126/58.The patient s peak stress heart rate was 115 bpm and the peak stress blood pressure was 166/85.The patient reached 78 percent of predicted max heart rate of 130 bpm.The patient experienced head tingling. The resting ECG shows Sinus rhythm with PVCs.Following Dobutamine infusion there are no new diagnostic ECG changes. Conclusion:Pharmacologic stress ECG is negative for ischemia. Ffhmdfbod-cs-Vkxlrjqqmi Count Ratio:0.49(normal=or < 0.52). Scintigraphic (planar/tomographic):Planar images reveal the left ventricular cavity is normal in size.There is normal pulmonary tracer uptake.There is a significant degree of diaphragmatic attenuation present.No transient ischemic dilation is present. Tomographic images were reconstructed in three orthogonal views.There is normal homogenous uptake of thallium in all myocardial segments.There are no perfusion defects.All myocardial segments appear viable. Polar coordinate map identifies no perfusion abnormalities. TID Ratio:0.94(normal <1.22). Summed Stress Score:1 , Summed Rest Score:0 Review of tomographic images in three orthogonal planes shows a mild intensity, partially fixed partially reversible, small sized perfusion defect in the basal inferior wall most consistent with diaphragmatic attenuation.All myocardial segments are viable. Regional Wall Thickening and Motion Post Stress: There is normal left ventricular wall motion and thickening of all myocardial segments. Left Ventricular Ejection Fraction (post stress, in the resting state)= 56 %. Left Ventricular End Diastolic Volume: 108 mL SUMMARY/OPINION:This study is probably normal with no evidence of significant myocardial ischemia. There is decreased uptake in the basal inferior wall most consisten with diaphragmatic attenuation.Left ventricular systolic function is normal. There are no high risk prognostic indicators present.The ECG portion of the study is negative for ischemia. There are no prior studies available for comparison. In aggregate the current study is low risk in regards to predicted annual cardiovascular mortality rate. * POC TROPONIN (02/04/2018 9:54 PM) Component Value Ref Range Ufctvzxe-T-[id number] 0.00 0.00 - 0.05 NG/ML Specimen Performing Laboratory MAIN LAB [address] [place] [id number] * BLOOD BANK SAMPLE HOLD (02/04/2018 9:53 PM) Component Value Ref Range BB Sample hold IN LAB Specimen Performing Laboratory [facility] [address] [place] [id number] * LACTIC ACID (BG - RAPID LACTATE) (02/04/2018 9:53 PM) Component Value Ref Range Lactic Acid,BG 2.5 (H) 0.5 - 2.0 MMOL/L Specimen Performing Laboratory Blood [facility] [address] [place] [id number] * TROPONIN-I (02/04/2018 9:53 PM) Only the most recent of 5 results within the time period is included. Component Value Ref Range Troponin-I 0.01 0.0 - 0.05 NG/ML Specimen Performing Laboratory Blood MAIN LAB [address] [place] [address] * PTT (APTT) (02/04/2018 9:53 PM) Only the most recent of 2 results within the time period is included. Component Value Ref Range APTT 29.9 21.0 - 39.0 SEC Specimen Performing Laboratory Blood MAIN LAB [address] [place] [address] * PROTIME INR (PT) (02/04/2018 9:53 PM) Only the most recent of 2 results within the time period is included. Component Value Ref Range INR 1.0 0.8 - 1.2 Specimen Performing Laboratory Blood MAIN [facility] [address] [place] [address] * CBC (02/04/2018 9:53 PM) Component Value Ref Range White Blood Cells 13.5 (H) 4.5 - 11.0 K/UL RBC 4.62 4.4 - 5.5 M/UL Hemoglobin 14.0 13.5 - 16.5 GM/DL Hematocrit 40.8 40 - 50 % MCV 88.4 80 - 100 FL MCH 30.2 26 - 34 PG MCHC 34.2 32.0 - 36.0 G/DL RDW 15.5 (H) 11 - 15 % Platelet Count 168 150 - 400 K/UL MPV 8.1 7 - 11 FL Specimen Performing Laboratory Blood [facility]IN [facility] [address] [place] [address] * COMPREHENSIVE METABOLIC PANEL (02/04/2018 9:53 PM) Component Value Ref Range Sodium 137 137 - 147 MMOL/L Potassium 4.3 3.5 - 5.1 MMOL/L Chloride 105 98 - 110 MMOL/L Glucose 208 (H) 70 - 100 MG/DL Blood Urea Nitrogen 22 7 - 25 MG/DL Creatinine 0.97 0.4 - 1.24 MG/DL Calcium 9.1 8.5 - 10.6 MG/DL Total Protein 7.4 6.0 - 8.0 G/DL Total Bilirubin 0.4 0.3 - 1.2 MG/DL Albumin 3.8 3.5 - 5.0 G/DL Alk Phosphatase 135 (H) 25 - 110 U/L AST (SGOT) 26 7 - 40 U/L CO2 21 21 - 30 MMOL/L ALT (SGPT) 26 7 - 56 U/L Anion Gap 11 3 - 12 eGFR Non >60 >60 mL/min Comment: The eGFR is not validated for use in drug dosing adjustments. Continue to use estimated creatinine clearance per dosing reference text. Please contact the Clinical Pharmacist for questions. eGFR >60 >60 mL/min Comment: The eGFR is not validated for use in drug dosing adjustments. Continue to use estimated creatinine clearance per dosing reference text. Please contact the Clinical Pharmacist for questions. Specimen Performing Laboratory Blood MAIN LAB [address] [place] [address] * POTASSIUM (02/04/2018 9:37 AM) Only the most recent of 2 results within the time period is included. Component Value Ref Range Potassium 3.6 3.5 - 5.1 MMOL/L Specimen Performing Laboratory [facility] [address] [place] [address] * ECG-SCAN (02/03/2018 7:30 AM) Narrative Ordered by an unspecified provider. * ECG-SCAN (02/03/2018 7:30 AM) Narrative Ordered by an unspecified provider. * IONIZED CALCIUM (02/03/2018 4:25 AM) Only the most recent of 5 results within the time period is included. Component Value Ref Range Ionized Calcium 1.16 1.0 - 1.3 MMOL/L Specimen Performing Laboratory [facility] [address] [place] [address] * IR LUMBAR PUNCTURE (02/02/2018 12:54 PM) Specimen Performing Laboratory [facility] RAD RESULTS Impressions 1. Fluoroscopic guided lumbar puncture, as described. 2. The opening cerebral spinal fluid pressure was 12 cm of water. 3. 12 ml of CSF collected. I, Rick Dia M.D, the attending radiologist, was present for the critical and byrne portions of the procedure with a midlevel, resident, and/or fellow participating.Overlapping portions were non byrne and I was immediately available.I interpret the critical and byrne portion of this procedure to have been needle access. @TT Approved by VIOLETA Francis on 02/02/2018 1:00 PM By my electronic signature, I attest that I have personally reviewed the images for this examination and formulated the interpretations and opinions expressed in this report Finalized by Rick Dia M.D. on 02/02/2018 3:58 PM. Dictated by VIOLETA Francis on 02/02/2018 12:58 PM. Narrative Fluoroscopic guided lumbar puncture with pressure measurements Clinical History: Suspected meningitis UX UI DESIGNER: VIOLETA Francis ATTENDING: Rick Dia M.D. Total fluoroscopy time: Less than 1 minutes. Medications: 5 mL 2% lidocaine subcutaneous Technique and Findings: After the procedure was explained, including the potential risk, benefits, and alternatives, both informed written/verbal consent and a brief history were obtained. The patient was brought to the fluoroscopy suite and placed on the examination table in a prone position. The lower back was then prepped and draped in the usual standard sterile fashion. 2% lidocaine was used for local anesthesia. Utilizing fluoroscopy guidance, a 20 gauge spinal needle was advanced into the intrathecal sac at the level of L2-L3. Position was confirmed by return of cerebral spinal fluid, which was clear. The patient was then placed in the left lateral decubitus position and opening cerebrospinal fluid pressures were obtained, which measured 12cm of water. Next, approximately 12ml of cerebral spinal fluid was collected and sent to the laboratory for requested laboratory studies. The needle was then removed and adequate hemostasis was achieved. The patient tolerated procedure without complications and left the department in stable condition after appropriate monitoring. Procedure Note Interface, Radiant Results - 02/02/2018 4:01 PM STONE REPAIRER Fluoroscopic guided lumbar puncture with pressure measurements Clinical History: Suspected meningitis UX UI DESIGNER: VIOLETA Francis ATTENDING: Rick Dia M.D. Total fluoroscopy time: Less than 1 minutes. Medications: 5 mL 2% lidocaine subcutaneous Technique and Findings: After the procedure was explained, including the potential risk, benefits, and alternatives, both informed written/verbal consent and a brief history were obtained. The patient was brought to the fluoroscopy suite and placed on the examination table in a prone position. The lower back was then prepped and draped in the usual standard sterile fashion. 2% lidocaine was used for local anesthesia. Utilizing fluoroscopy guidance, a 20 gauge spinal needle was advanced into the intrathecal sac at the level of L2-L3. Position was confirmed by return of cerebral spinal fluid, which was clear. The patient was then placed in the left lateral decubitus position and opening cerebrospinal fluid pressures were obtained, which measured 12cm of water. Next, approximately 12ml of cerebral spinal fluid was collected and sent to the laboratory for requested laboratory studies. The needle was then removed and adequate hemostasis was achieved. The patient tolerated procedure without complications and left the department in stable condition after appropriate monitoring. IMPRESSION 1. Fluoroscopic guided lumbar puncture, as described. 2. The opening cerebral spinal fluid pressure was 12 cm of water. 3. 12 ml of CSF collected. IRick M.D, the attending radiologist, was present for the critical and byrne portions of the procedure with a midlevel, resident, and/or fellow participating. Overlapping portions were non byrne and I was immediately available. I interpret the critical and byrne portion of this procedure to have been needle access. @TT Approved by VIOLETA Francis on 02/02/2018 1:00 PM By my electronic signature, I attest that I have personally reviewed the images for this examination and formulated the interpretations and opinions expressed in this report Finalized by Rick Dia M.D. on 02/02/2018 3:58 PM. Dictated by VIOLETA Francis on 02/02/2018 12:58 PM. * GRAM STAIN (02/02/2018 12:45 PM) Component Value Ref Range Battery Name GRAM STAIN Specimen Description CSF Special Requests NONE Gram Stain NO NEUTROPHILS SEEN NO ORGANISMS SEEN Report Status FINAL 02/02/2018 Specimen Performing Laboratory Cerebrospinal Fluid [facility] [address] [place] [id number] * CULTURE-CSF W/SENSITIVITY (02/02/2018 12:45 PM) Component Value Ref Range Battery Name CSF CULTURE Specimen Description CSF Special Requests NONE Direct Gram Stain NO NEUTROPHILS SEEN NO ORGANISMS SEEN Culture NO GROWTH 3 DAYS Report Status FINAL 02/05/2018 Specimen Performing Laboratory Cerebrospinal fluid - [facility] Cerebrospinal Fluid [address] [place] [id number] * CELL COUNT W/DIFF-CSF (02/02/2018 12:45 PM) Component Value Ref Range Cell Count Tube,CSF TUBE 4 White Blood Cells,CSF 3 <5 /UL Red Blood Cells,CSF 5 /UL Lymphocytes, CSF 85 % Monocyte/Hisotocyte, CSF 15 % Clarity,CSF CLEAR Path Interpretation, CSF NO DIAGNOSTIC ABNORMALITIES Pathologist Signature INTERPRETED BY DON CASANOVA M.D. By the PATH SIGNATURE ABOVE, I attest that I have personally formulated the final interpretation expressed in this report and that the above diagnosis is based upon my examination of the slides and/or other material indicated in this report. Specimen Performing Laboratory Cerebrospinal fluid - [facility] Cerebrospinal Fluid [address] [place] [address] * TOTAL PROTEIN-CSF (02/02/2018 12:45 PM) Component Value Ref Range Total Protein,CSF 58 (H) 15 - 45 MG/DL Specimen Performing Laboratory Cerebrospinal fluid - [facility] Cerebrospinal Fluid [address] [place] [address] * GLUCOSE-CSF (02/02/2018 12:45 PM) Component Value Ref Range Glucose,CSF 73 40 - 75 MG/DL Xanthrochromia,CSF NONE Specimen Performing Laboratory Cerebrospinal fluid - [facility] Cerebrospinal Fluid [address] [place] [address] * ALBUMIN (02/01/2018 4:40 AM) Only the most recent of 2 results within the time period is included. Component Value Ref Range Albumin 3.3 (L) 3.5 - 5.0 G/DL Specimen Performing Laboratory Blood MAIN LAB [address] [place] [address] * PHENYTOIN, TOTAL (DILANTIN) (02/01/2018 4:40 AM) Only the most recent of 2 results within the time period is included. Component Value Ref Range Phenytoin 2.7 (L) 10.0 - 20.0 MCG/ML Specimen Performing Laboratory Blood MAIN LAB [address] [place] [address] * 2-D + DOPPLER ECHOCARDIOGRAM (01/31/2018 11:45 AM) Component Value Ref Range IVS 1.57 0.6 - 1.0 cm LVIDD 5.16 4.2 - 5.9 cm LVIDS 3.39 cm PW 1.29 0.6 - 1.0 cm TDI e' 0.10 m/s Right Ventricular Long 7.66 5.9 - 8.3 cm Diameter Right Ventricular Mid 3.80 1.9 - 3.5 cm Diameter LA size 4.13 3.0 - 4.0 cm LA volume 39.99 18 - 58 mL Right Atrial Area 20.36 <=18 cm2 Right Atrial Major 4.81 <=5.3 cm Dimension and a peak gradient of 6.78 mmHg AV peak velocity 1.30 m/s AV regurgitation pressure 575.11 ms 1/2 time MV Peak A Santosh 0.61 m/s MV Peak E Santosh PW 0.59 m/s Right Heart Systolic 1.74 cm Mmode TAPSE Right Ventricular Basal 4.61 2.5 - 4.1 cm Diameter Ao root annulus 2.83 1.4 - 2.6 cm Sinus 4.45 2.1 - 3.5 cm STJ 3.83 1.7 - 3.4 cm Ascending aorta 4.11 2.0 - 3.6 cm BSA 2.59 m2 FS 34.30 28 - 44 % EF 58.31 % Left Atrium Index 15.44 10 - 32 E/A ratio 0.97 E/E' ratio 5.90 Proximal aorta 4.2 2.1 - 3.4 cm Aortic arch 4.2 2.0 - 3.6 cm TV rest pulmonary artery NA mmHg pressure Cardiology Ultrasound Siemens [id number] Machine ECHO EF 55 % Specimen Performing Laboratory OTHER OUTSIDE LAB Narrative LVEF=50-55%, Poor Visualization. Mid To Distal Anteroseptal Hypokinesis: See Contrast Views Apical Series #70 And #74. Mild Concentric LVH Mild Left Atrial Dilatation Mild Aortic Valve Regurgitation No Pericardial Effusion Mild RV Dilatation TAPSE=1.7cm * CT INT AUD CANAL WO CONTRAST (01/31/2018 10:41 AM) Specimen Performing Laboratory [facility] RESULTS Impressions 1. Diffuse soft tissue thickening of the left external auditory canal suggesting otitis externa. Mild thickening of the left tympanic membrane, may be from adjacent inflammation and/or postprocedural. 2. Prior left pterional cranioplasty and mastoidectomy with left temporal lobectomy. Fluid opacification of the residual left mastoid air cells. 3. Mild focal soft tissue thickening adjacent to the right scutum within the Prussak's space suggesting small pars flaccida cholesteatoma. 4. No significant change in partially visualized small bilateral subdural effusions, greater on the right. 5. Mild generalized cerebral atrophy. By my electronic signature, I attest that I have personally reviewed the images for this examination and formulated the interpretations and opinions expressed in this report Finalized by CLARE BASS M.D. on 01/31/2018 1:45 PM. Dictated by Osiel Roger M.D. on 01/31/2018 12:29 PM. Narrative EXAM: CT INTERNAL AUDITORY CANAL HISTORY: 67-year-old male, leaking from ear. TECHNIQUE: Thin section axial and coronal CT scan through the temporal bones was obtained. COMPARISON: CT head January 21, [address] of the IACs on 01/27/2013. FINDINGS: Redemonstration of prior left pterional cranioplasty and wall down mastoidectomy with left temporal lobectomy. Prominence of the ventricles and subarachnoid spaces consistent with mild generalized cerebral atrophy. Small bilateral subdural effusions are redemonstrated, right greater than left and partially visualized. No acute intracranial hemorrhage or mass effect. Unchanged right to left midline shift. Occipital carlos holes craniotomies noted bilaterally. Bilateral lens replacements noted. RIGHT: The external auditory canal, both the cartilaginous and bony segments are patent. The tympanic membrane is intact. Mild focal soft tissue thickening adjacent to the scutum within the Prussak's space (series 309B image 35). The mesotympanum and hypotympanum are all patent.The otic capsule is normal in appearance. The tegmen tympani is intact. The labyrinthine, geniculate, tympanic, and mastoid portions of nerve VII are all unremarkable. The cochlea demonstrates a normal 2-1/2 turns. A normal bony roof over the superior semicircular canal is demonstrated. The vestibular apparatus and semicircular canals are all unremarkable. The internal auditory canal is patent. The vestibular aqueduct is of normal caliber. Trace fluid within several inferior right mastoid air cells. The jugular foramen is normal in appearance. LEFT: Previous left tympanoplasty with left mastoidectomy and ossicular chain reconstruction using prostheses. Mild diffuse soft tissue thickening of the external auditory canal. Mild thickening of the tympanic membrane. Inner ear ossicle prostheses are in place. The cochlea demonstrates a normal 2-1/2 turns. A normal bony roof over the superior semicircular canal is demonstrated. The vestibular apparatus and semicircular canals are all unremarkable. The internal auditory canal is patent. The vestibular aqueduct is of normal caliber. The residual mastoid air cells are opacified. The jugular foramen is normal in appearance. Procedure Note Interface, Radiant Results - 01/31/2018 1:48 PM STONE REPAIRER EXAM: CT INTERNAL AUDITORY CANAL HISTORY: 67-year-old male, leaking from ear. TECHNIQUE: Thin section axial and coronal CT scan through the temporal bones was obtained. COMPARISON: CT head January 21, [address] of the IACs on 01/27/2013. FINDINGS: Redemonstration of prior left pterional cranioplasty and wall down mastoidectomy with left temporal lobectomy. Prominence of the ventricles and subarachnoid spaces consistent with mild generalized cerebral atrophy. Small bilateral subdural effusions are redemonstrated, right greater than left and partially visualized. No acute intracranial hemorrhage or mass effect. Unchanged right to left midline shift. Occipital carlos holes craniotomies noted bilaterally. Bilateral lens replacements noted. RIGHT: The external auditory canal, both the cartilaginous and bony segments are patent. The tympanic membrane is intact. Mild focal soft tissue thickening adjacent to the scutum within the Prussak's space (series 309B image 35). The mesotympanum and hypotympanum are all patent. The otic capsule is normal in appearance. The tegmen tympani is intact. The labyrinthine, geniculate, tympanic , and mastoid portions of nerve VII are all unremarkable. The cochlea demonstrates a normal 2-1/2 turns. A normal bony roof over the superior semicircular canal is demonstrated. The vestibular apparatus and semicircular canals are all unremarkable. The internal auditory canal is patent. The vestibular aqueduct is of normal caliber. Trace fluid within several inferior right mastoid air cells. The jugular foramen is normal in appearance. LEFT: Previous left tympanoplasty with left mastoidectomy and ossicular chain reconstruction using prostheses. Mild diffuse soft tissue thickening of the external auditory canal. Mild thickening of the tympanic membrane. Inner ear ossicle prostheses are in place. The cochlea demonstrates a normal 2-1/2 turns. A normal bony roof over the superior semicircular canal is demonstrated. The vestibular apparatus and semicircular canals are all unremarkable. The internal auditory canal is patent. The vestibular aqueduct is of normal caliber. The residual mastoid air cells are opacified. The jugular foramen is normal in appearance. IMPRESSION 1. Diffuse soft tissue thickening of the left external auditory canal suggesting otitis externa. Mild thickening of the left tympanic membrane, may be from adjacent inflammation and/or postprocedural. 2. Prior left pterional cranioplasty and mastoidectomy with left temporal lobectomy. Fluid opacification of the residual left mastoid air cells. 3. Mild focal soft tissue thickening adjacent to the right scutum within the Prussak's space suggesting small pars flaccida cholesteatoma. 4. No significant change in partially visualized small bilateral subdural effusions, greater on the right. 5. Mild generalized cerebral atrophy. By my electronic signature, I attest that I have personally reviewed the images for this examination and formulated the interpretations and opinions expressed in this report Finalized by CLRAE BASS M.D. on 01/31/2018 1:45 PM. Dictated by Osiel Roger M.D. on 01/31/2018 12:29 PM. * MRI ORBIT FACE AND/OR NECK WO/W CONT (01/31/2018 4:59 AM) Specimen Performing Laboratory [facility] RESULTS Impressions 1. Prior left pterional craniotomy and partial left temporal lobectomy with unchanged left temporal encephalomalacia. 2. Prior left mastoidectomy with persistent opacification of few residual left mastoid air cells. Small right mastoid effusion also remains. 3. Redemonstration of a pituitary adenoma, not significantly changed since the prior exam. 4. No orbital mass or MRI evidence of optic neuritis. 5. No evidence of acute infarct. By my electronic signature, I attest that I have personally reviewed the images for this examination and formulated the interpretations and opinions expressed in this report Finalized by Freddy Diaz M.D. on 01/31/2018 5:02 AM. Dictated by Lucille Woodard M.D. on 01/31/2018 4:21 AM. Narrative EXAM: MRI BRAIN (ORBITAL PROTOCOL) HISTORY: Hygroma on CT, historically known, however presenting with new symptoms. TECHNIQUE: Multiplanar and multisequence MR imaging of the whole brain was performed. This was done both before and after the administration of MultiHancecontrast. Additional dedicated MR sequences were obtained of the orbits before and after the administration of contrast. COMPARISON: MRI of the brain from July 02, 2017 FINDINGS: Dr. Freddy Diaz M.D. has personally reviewed these images and formulated the interpretations and opinions expressed in this report. Prior left pterional craniotomy, partial left anterior temporal lobectomy and left-sided wall down mastoidectomy. Unchanged left temporal encephalomalacia. There is unchanged right to left midline shift, measuring up to 0.7 cm. Persistent opacification of residual left mastoid air cells. Small right mastoid effusion is noted. There is unchanged mild generalized cerebral volume loss. There is prominence of the CSF signal along the bilateral cerebral convexities once again with cortical vessels coursing through the areas of CSF signal intensity bilaterally , indicating prominent CSF spaces secondary to atrophy rather than subdural effusions. Tiny FLAIR hyperintense foci within the supratentorial white matter are within normal limits for patient age and unchanged.Diffusion weighted imaging is not indicative of infarct. The globes and orbits are normal in appearance other than prior cataract surgery. No orbital mass is identified. The optic nerves, optic chiasm and optic tracts are symmetric and without signal abnormality. There is a mildly hypointense T1 and hypointense T2 lesion within the midline and left cerebellar region, demonstrating hypointensity on postcontrast T1 images and measuring 10 x 6 mm (series 14, image 23). In retrospect, this lesion was also present on prior MRI exam and appears similar in size when compared to the July 2017 exam and is only minimally increased in size since the January 2012 MRI.. Procedure Note Interface, Radiant Results - 01/31/2018 5:05 AM STONE REPAIRER EXAM: MRI BRAIN (ORBITAL PROTOCOL) HISTORY: Hygroma on CT, historically known, however presenting with new symptoms. TECHNIQUE: Multiplanar and multisequence MR imaging of the whole brain was performed. This was done both before and after the administration of MultiHancecontrast. Additional dedicated MR sequences were obtained of the orbits before and after the administration of contrast. COMPARISON: MRI of the brain from July 02, 2017 FINDINGS: Dr. Freddy Diaz M.D. has personally reviewed these images and formulated the interpretations and opinions expressed in this report. Prior left pterional craniotomy, partial left anterior temporal lobectomy and left-sided wall down mastoidectomy. Unchanged left temporal encephalomalacia. There is unchanged right to left midline shift, measuring up to 0.7 cm. Persistent opacification of residual left mastoid air cells. Small right mastoid effusion is noted. There is unchanged mild generalized cerebral volume loss. There is prominence of the CSF signal along the bilateral cerebral convexities once again with cortical vessels coursing through the areas of CSF signal intensity bilaterally , indicating prominent CSF spaces secondary to atrophy rather than subdural effusions. Tiny FLAIR hyperintense foci within the supratentorial white matter are within normal limits for patient age and unchanged. Diffusion weighted imaging is not indicative of infarct. The globes and orbits are normal in appearance other than prior cataract surgery. No orbital mass is identified. The optic nerves, optic chiasm and optic tracts are symmetric and without signal abnormality. There is a mildly hypointense T1 and hypointense T2 lesion within the midline and left cerebellar region, demonstrating hypointensity on postcontrast T1 images and measuring 10 x 6 mm (series 14, image 23). In retrospect, this lesion was also present on prior MRI exam and appears similar in size when compared to the July 2017 exam and is only minimally increased in size since the January 2012 MRI.. IMPRESSION 1. Prior left pterional craniotomy and partial left temporal lobectomy with unchanged left temporal encephalomalacia. 2. Prior left mastoidectomy with persistent opacification of few residual left mastoid air cells. Small right mastoid effusion also remains. 3. Redemonstration of a pituitary adenoma, not significantly changed since the prior exam. 4. No orbital mass or MRI evidence of optic neuritis. 5. No evidence of acute infarct. By my electronic signature, I attest that I have personally reviewed the images for this examination and formulated the interpretations and opinions expressed in this report Finalized by Freddy Diaz M.D. on 01/31/2018 5:02 AM. Dictated by Lucille Woodard M.D. on 01/31/2018 4:21 AM. * MRI HEAD WO/W CONTRAST (01/31/2018 4:59 AM) Specimen Performing Laboratory [facility] RESULTS Impressions 1. Prior left pterional craniotomy and partial left temporal lobectomy with unchanged left temporal encephalomalacia. 2. Prior left mastoidectomy with persistent opacification of few residual left mastoid air cells. Small right mastoid effusion also remains. 3. Redemonstration of a pituitary adenoma, not significantly changed since the prior exam. 4. No orbital mass or MRI evidence of optic neuritis. 5. No evidence of acute infarct. By my electronic signature, I attest that I have personally reviewed the images for this examination and formulated the interpretations and opinions expressed in this report Finalized by Freddy Diaz M.D. on 01/31/2018 5:02 AM. Dictated by Lucille Woodard M.D. on 01/31/2018 4:21 AM. Narrative EXAM: MRI BRAIN (ORBITAL PROTOCOL) HISTORY: Hygroma on CT, historically known, however presenting with new symptoms. TECHNIQUE: Multiplanar and multisequence MR imaging of the whole brain was performed. This was done both before and after the administration of MultiHancecontrast. Additional dedicated MR sequences were obtained of the orbits before and after the administration of contrast. COMPARISON: MRI of the brain from July 02, 2017 FINDINGS: Dr. Freddy Diaz M.D. has personally reviewed these images and formulated the interpretations and opinions expressed in this report. Prior left pterional craniotomy, partial left anterior temporal lobectomy and left-sided wall down mastoidectomy. Unchanged left temporal encephalomalacia. There is unchanged right to left midline shift, measuring up to 0.7 cm. Persistent opacification of residual left mastoid air cells. Small right mastoid effusion is noted. There is unchanged mild generalized cerebral volume loss. There is prominence of the CSF signal along the bilateral cerebral convexities once again with cortical vessels coursing through the areas of CSF signal intensity bilaterally , indicating prominent CSF spaces secondary to atrophy rather than subdural effusions. Tiny FLAIR hyperintense foci within the supratentorial white matter are within normal limits for patient age and unchanged.Diffusion weighted imaging is not indicative of infarct. The globes and orbits are normal in appearance other than prior cataract surgery. No orbital mass is identified. The optic nerves, optic chiasm and optic tracts are symmetric and without signal abnormality. There is a mildly hypointense T1 and hypointense T2 lesion within the midline and left cerebellar region, demonstrating hypointensity on postcontrast T1 images and measuring 10 x 6 mm (series 14, image 23). In retrospect, this lesion was also present on prior MRI exam and appears similar in size when compared to the July 2017 exam and is only minimally increased in size since the January 2012 MRI.. Procedure Note Interface, Radiant Results - 01/31/2018 5:05 AM STONE REPAIRER EXAM: MRI BRAIN (ORBITAL PROTOCOL) HISTORY: Hygroma on CT, historically known, however presenting with new symptoms. TECHNIQUE: Multiplanar and multisequence MR imaging of the whole brain was performed. This was done both before and after the administration of MultiHancecontrast. Additional dedicated MR sequences were obtained of the orbits before and after the administration of contrast. COMPARISON: MRI of the brain from July 02, 2017 FINDINGS: Dr. Freddy Diaz M.D. has personally reviewed these images and formulated the interpretations and opinions expressed in this report. Prior left pterional craniotomy, partial left anterior temporal lobectomy and left-sided wall down mastoidectomy. Unchanged left temporal encephalomalacia. There is unchanged right to left midline shift, measuring up to 0.7 cm. Persistent opacification of residual left mastoid air cells. Small right mastoid effusion is noted. There is unchanged mild generalized cerebral volume loss. There is prominence of the CSF signal along the bilateral cerebral convexities once again with cortical vessels coursing through the areas of CSF signal intensity bilaterally , indicating prominent CSF spaces secondary to atrophy rather than subdural effusions. Tiny FLAIR hyperintense foci within the supratentorial white matter are within normal limits for patient age and unchanged. Diffusion weighted imaging is not indicative of infarct. The globes and orbits are normal in appearance other than prior cataract surgery. No orbital mass is identified. The optic nerves, optic chiasm and optic tracts are symmetric and without signal abnormality. There is a mildly hypointense T1 and hypointense T2 lesion within the midline and left cerebellar region, demonstrating hypointensity on postcontrast T1 images and measuring 10 x 6 mm (series 14, image 23). In retrospect, this lesion was also present on prior MRI exam and appears similar in size when compared to the July 2017 exam and is only minimally increased in size since the January 2012 MRI.. IMPRESSION 1. Prior left pterional craniotomy and partial left temporal lobectomy with unchanged left temporal encephalomalacia. 2. Prior left mastoidectomy with persistent opacification of few residual left mastoid air cells. Small right mastoid effusion also remains. 3. Redemonstration of a pituitary adenoma, not significantly changed since the prior exam. 4. No orbital mass or MRI evidence of optic neuritis. 5. No evidence of acute infarct. By my electronic signature, I attest that I have personally reviewed the images for this examination and formulated the interpretations and opinions expressed in this report Finalized by Freddy Diaz M.D. on 01/31/2018 5:02 AM. Dictated by Lucille Woodard M.D. on 01/31/2018 4:21 AM. * SED RATE (01/31/2018 2:55 AM) Component Value Ref Range Sed Rate -ESR 19 0 - 20 MM/HR Specimen Performing Laboratory [facility] [address] [place] [address] * C REACTIVE PROTEIN (CRP) (01/31/2018 2:55 AM) Component Value Ref Range C-Reactive Protein 2.40 (H) <1.0 MG/DL Specimen Performing Laboratory [facility] [address] [place] [address] * LACTIC ACID(LACTATE) (01/31/2018 2:55 AM) Component Value Ref Range Lactic Acid 0.9 0.5 - 2.0 MMOL/L Specimen Performing Laboratory [facility] [address] [place] [address] * HEMOGLOBIN A1C (01/31/2018 2:55 AM) Component Value Ref Range Hemoglobin A1C 6.9 (H) 4.0 - 6.0 % Comment: The ADA recommends that most patients with type 1 and type 2 diabetes maintain an A1c level <7%. Specimen Performing Laboratory [facility] [address] [place] [address] * BNP (B-TYPE NATRIURETIC PEPTI) (01/30/2018 11:42 PM) Component Value Ref Range B Type Natriuretic 161.0 (H) 0 - 100 PG/ML Peptide Specimen Performing Laboratory [facility] [address] [place] [address] * LIPID PROFILE (01/30/2018 11:42 PM) Component Value Ref Range Cholesterol 209 (H) <200 MG/DL Triglycerides 399 (H) <150 MG/DL HDL 29 (L) >40 MG/DL LDL 96 <100 MG/DL VLDL 80 MG/DL Non HDL Cholesterol 180 MG/DL Comment: Calculated non-HDL Cholesterol (non-HDL-C) indirectly measures LDL-C, Lp(a), IDL-C, and VLDL-C. It is a surrogate marker for Apoprotein B. Goal should be less than 130 mg/dL. Specimen Performing Laboratory [facility] [address] [place] [address] * CT HEAD EXTERNAL IMAGING (01/30/2018 12:30 AM) Narrative This order has been auto finalized and does not contain a result. * CT MAXILLOFACIAL EXTERNAL IMAGING (01/30/2018 12:15 AM) Narrative This order has been auto finalized and does not contain a result. * GENERAL RAD CHEST EXTERNAL IMAGING (01/30/2018) Narrative This order has been auto finalized and does not contain a result. * CHEMODENERVATION MUSCLE MIGRAINE (01/07/2018 3:15 PM) Specimen Performing Laboratory OTHER OUTSIDE LAB Narrative Paulina Linton MD 01/07/20184:16 PM Patient consented for botulinum toxin injections for chronic migraine headaches. This was done in the usual sterile fashion with the area being cleaned with Betadine x3 times. Each 100unit vial was reconstituted with 2ml of normal saline for total of 4ml. (200 units prepared, 140 units used, 60 units of waste). Then each site received 0.1 ml or 5 units via a 30g 1/2 inch needle. Muscles were injected as below. The patient tolerated the procedure well. There was no blood loss. Afterwards, area was cleaned with alcohol and a Band-Aid placed over the injection sites. The patient was told to use ice 20 minutes on, 20 minutes off for the next few days while using relative rest over the weekend. Further, she is to avoid soaking the area such as in a tub bath or swimming pool for the next couple days to reduce risk of infection at the site. Muscles/Sites Injected A - Bilateral Awake Overnight Monitor - 10 units divided in 2 sites B - Midline Procerus - 5 units in 1 site C - Bilateral Frontalis - 20 units divided in 4 sites D - Left Temporalis - 65 units divided in 13 sites E - Bilateral Cervical Paraspinals - 30 units divided in 6 sites F - Bilateral Trapezius - 10 units divided in 2 sites from Last 3 Months
--- OUTSIDE RECORDS SUMMARY | 2018-02-08 05:02 | XMS REPORT | Encounter Summary ---
Author Author [facility] Organization [facility] Address Unknown Phone Unavailable Care Team Providers Care Transmission Tester Name Role Phone Michael Caro MD Unavailable Tia España MD Unavailable Meera Ruano MD Unavailable Sonia Cano MD Unavailable Telma Malcolm PARTNER MARKETING INTERN-BC Unavailable Vincent Quintero MD Unavailable Unavailable Con Rosas MD Unavailable Jesus Tai MD Unavailable Unavailable Murray Russo MD Unavailable Codi Aguirre Unavailable Unavailable Mckay Frias MD Unavailable Siddharth Cortes MD Unavailable Leatha Rajan RN Unavailable Unavailable Nuria Daniel RN Unavailable Unavailable Kati Guerrero PARTNER MARKETING INTERN Unavailable Dorys Colunga RN Unavailable Jasmyn Carrasco Unavailable Unavailable Bhavana Haddad PARTNER MARKETING INTERN-ENGINEER TECHNICIAN Unavailable Liza Oglesby MA,CCC-TREATMENT PLANT OPERATOR Unavailable Unavailable Edilberto Matute MD Unavailable Unavailable Mckay aWlters MD Unavailable Marianne Rosario MA,CCC-TREATMENT PLANT OPERATOR Unavailable Unavailable Clint Ayoub RN Unavailable Unavailable Geetha Diez MA,CCC-TREATMENT PLANT OPERATOR Unavailable Unavailable Mckay Nathan PA-C Unavailable Evert Jefferson MD Unavailable Serenity Carter MD Unavailable Piedad Oliver RN Unavailable Unavailable Vivi Nelson MD Unavailable Morena Scanlon MD Unavailable Clarence Brink MD Unavailable Jess Savage DO Unavailable Liza Sheth Unavailable Safia Mancia MD PCP Encounter Details Date Type Department Care Team Description 01/31/2018 [id number] [place] [address] Social History Tobacco Use Types Packs/Day Years Used Date Never Smoker Smokeless Tobacco: Never Used Alcohol Use Drinks/Week oz/Week Comments No Sex Assigned at Date Recorded Not on file as of this encounter Functional Status Functional Status Response Date of Assessment Does the patient have a hearing impairment: No 01/07/2018 Does the patient have a visual impairment: Yes 01/07/2018 Does the patient have impaired ambulation: No 01/07/2018 Does the patient have an activity of daily living No 01/07/2018 (ADL) impairment: Does the patient have an instrumental activity of No 01/07/2018 daily living (IADL) impairment: Cognitive Status Response Date of Assessment Does the patient have a cognitive impairment: No 01/07/2018 as of this encounter Plan of Treatment Not on fileas of this encounter Visit Diagnoses Not on filein this encounter
--- OUTSIDE RECORDS SUMMARY | 2018-02-08 05:02 | XMS REPORT | Encounter Summary ---
Author Author [facility] Organization [facility] Address Unknown Phone Unavailable Care Team Providers Care Accounts Receivable Collector Name Role Phone Michael Caro MD Unavailable Tia España MD Unavailable Meera Ruano MD Unavailable Sonia Cano MD Unavailable Telma Malcolm PLYWOOD MATCHER-BC Unavailable Vincent Quintero MD Unavailable Unavailable Con Rosas MD Unavailable Jesus Tai MD Unavailable Unavailable Murray Russo MD Unavailable Codi Aguirre Unavailable Unavailable Mckay Frias MD Unavailable Siddharth Cortes MD Unavailable Leatha Rajan RN Unavailable Unavailable Nuria Daniel RN Unavailable Unavailable Kati Guerrero PLYWOOD MATCHER Unavailable Dorys Colunga RN Unavailable Jasmyn Carrasco Unavailable Unavailable Bhavana Haddad PLYWOOD MATCHER-BAR ROLLER Unavailable Liza Oglesby MA,CCC-CLEAN OUT DRILLER HELPER Unavailable Unavailable Edilberto Matute MD Unavailable Unavailable Mckay Walters MD Unavailable Marianne Rosario MA,CCC-CLEAN OUT DRILLER HELPER Unavailable Unavailable Clint Ayoub RN Unavailable Unavailable Geetha Diez MA,CCC-CLEAN OUT DRILLER HELPER Unavailable Unavailable Mckay Nathan PA-C Unavailable Evert Jefferson MD Unavailable Serenity Carter MD Unavailable Piedad Oliver RN Unavailable Unavailable Vivi Nelson MD Unavailable Morena Scanlon MD Unavailable Clarence Brink MD Unavailable Jess Savage DO Unavailable Liza Sheth Unavailable Safia Mancia MD PCP Encounter Details Date Type Department Care Team Description 01/31/2018 [id number] [place] [address] Social History Tobacco Use Types Packs/Day Years [...]
--- OUTSIDE RECORDS SUMMARY | 2018-02-08 05:02 | XMS REPORT | Encounter Summary ---
Author Author [facility] Organization [facility] Address Unknown Phone Unavailable Care Team Providers Care Bail Bondsman Name Role Phone Michael Caro MD Unavailable Tia España MD Unavailable Meera Ruano MD Unavailable oSnia Cano MD Unavailable Telma Malcolm DEPORTATION EXAMINER-BC Unavailable Vincent Quintero MD Unavailable Unavailable Con Rosas MD Unavailable Jesus Tai MD Unavailable Unavailable Murray Russo MD Unavailable Codi Aguirre Unavailable Unavailable Mckay Frias MD Unavailable Siddharth Cortes MD Unavailable Leatha Rajan RN Unavailable Unavailable Nuria Daniel RN Unavailable Unavailable Kati Guerrero DEPORTATION EXAMINER Unavailable Dorys Colunga RN Unavailable Jasmyn Carrasco Unavailable Unavailable Bhavana Haddad DEPORTATION EXAMINER-MECHANICS SUPERVISOR Unavailable Liza Oglesby MA,CCC-SHERIFF Unavailable Unavailable Edilberto Matute MD Unavailable Unavailable Mckay Walters MD Unavailable Marianne Rosario MA,CCC-SHERIFF Unavailable Unavailable Clint Ayoub RN Unavailable Unavailable Geetha Diez MA,CCC-SHERIFF Unavailable Unavailable Mckay Nathan PA-C Unavailable Evert Jefferson MD Unavailable Serenity Carter MD Unavailable Piedad Oliver RN Unavailable Unavailable Vivi Nelson MD Unavailable Morena Scanlon MD Unavailable Clarence Brink MD Unavailable Jess Savage DO Unavailable Liza Sheth Unavailable Safia Mancia MD PCP Reason for Visit * Auth/Cert Status Reason Specialty Diagnoses / Referred By Referred To Procedures Contact Contact Diagnoses stroke like symptoms Hygroma Encounter Details Date Type Department Care Team Description 02/05/2018 [facility] Cardiology Gerry Mccoy MD Arrived Encounter [address] [facility] [address] [place] [address] [place] [address] [place] [address] [phone] Social History Tobacco Use Types Packs/Day Years Used Date Never Smoker Smokeless Tobacco: Never Used Alcohol Use Drinks/Week oz/Week Comments No Sex Assigned at Date Recorded Not on file as of this encounter Functional Status Functional Status Response Date of Assessment Does the patient have a hearing impairment: Yes 01/31/2018 Does the patient have a visual impairment: [...] Visit Diagnoses Not on filein this encounter Administered Medications Medication Order MAR Action Action Date Dose Rate Site atropine injection syringe 0.5-1 mg Given 02/05/2018 0.5 mg 0.5-1 mg, Intravenous, ONCE, 1 dose, Gisella 09:05 UX DESIGN MANAGER 02/05/18 at 0930 DOBUTamine (DOBUTREX) 250 mg in sodium Given - New 02/05/2018 40 345 mL/ hr chloride 0.9% (NS) 250 mL IVPB Bag 08:56 UX DESIGN MANAGER mcg/kg/min 1-20 mcg/kg/min 133.1 kg (8.6249-172.4976 mL/hr, rounded to 8.6-172.5 mL/hr) 270 mL, at 8.6-172.5 mL/hr, Intravenous, ONCE, 1 dose, Gisella 02/05/18 at 0930 in this encounter
--- OUTSIDE RECORDS SUMMARY | 2018-02-08 05:02 | XMS REPORT | Encounter Summary ---
Author Author [facility] Organization [facility] Address Unknown Phone Unavailable Care Team Providers Care Senior Underwriter Name Role Phone Michael Caro MD Unavailable Tia España MD Unavailable Meera Ruano MD Unavailable Sonia Cano MD Unavailable Telma Malcolm RN RADIATION-BC Unavailable Vincent Quintero MD Unavailable Unavailable Con Rosas MD Unavailable Jesus Tai MD Unavailable Unavailable Murray Russo MD Unavailable Codi Aguirre Unavailable Unavailable Mckay Frias MD Unavailable Siddharth Cortes MD Unavailable Leatha Rajan RN Unavailable Unavailable Nuria Daniel RN Unavailable Unavailable Kati Guerrero RN RADIATION Unavailable Dorys Colunga RN Unavailable Jasmyn Carrasco Unavailable Unavailable Bhavana Haddad RN RADIATION-SENIOR STATISTICAL PROGRAMMER Unavailable Liza Oglesby MA,CCC-INSULATION INSTALLER Unavailable Unavailable Edilberto Matute MD Unavailable Unavailable Mckay Walters MD Unavailable Marianne Rosario MA,CCC-INSULATION INSTALLER Unavailable Unavailable Clint Ayoub RN Unavailable Unavailable Geetha Diez MA,CCC-INSULATION INSTALLER Unavailable Unavailable Mckay Nathan PA-C Unavailable Evert [...] Details Date Type Department Care Team Description 01/30/2018 Hospital CA7 Siddharth Ponce MD Hygroma - Encounter [id number] [facility] [address] [facility] 02/06/2018 [place] [address] [address] [place] [address] [phone] Social History Tobacco Use Types Packs/Day Years Used Date Never Smoker Smokeless Tobacco: Never Used Alcohol Use Drinks/Week oz/Week Comments No Sex Assigned at Date Recorded Not on file as of this encounter Last Filed Vital Signs Vital Sign Reading Time Taken Blood Pressure 121/50 02/06/2018 7:57 AM SCRIPT EDITOR Pulse 63 02/06/2018 8:57 AM SCRIPT EDITOR Temperature 36.9 C (98.5 F) 02/06/2018 7:57 AM SCRIPT EDITOR Respiratory Rate - - Oxygen Saturation 97% 02/06/2018 8:00 AM SCRIPT EDITOR Inhaled Oxygen - - Concentration Weight 133.1 kg (293 lb 6.9 oz) 02/04/2018 7:19 AM SCRIPT EDITOR Height 185.4 cm (6' 1") 01/31/2018 11:46 AM SCRIPT EDITOR Body Mass Index 38.71 02/04/2018 7:19 AM SCRIPT EDITOR in this encounter Functional Status Functional Status Response [...] impairment: No 02/06/2018 as of this encounter Discharge Instructions * Patient Instructions - Caroline Staton RN - 02/02/2018 11:16 AM [facility] INTERVENTIONAL RADIOLOGY DISCHARGE INSTRUCTIONS LUMBAR PUNCTURE A lumbar puncture is a procedure in which a needle is carefully inserted into the spinal canal in the lower portion of your back (the lumbar area). A small amount of cerebrospinal fluid (CSF) is collected followed by removal of the needle. CSF is a clear fluid that surrounds the brain and spinal cord and helps protect them from injury. The collected fluid is then used for specific lab tests ordered by your physician. In some instances, the pressure of the CSF may also be measured during the procedure. POST-PROCEDURE ACTIVITY: A responsible adult must drive you home. If you receive sedation or anesthesia for the procedure, you should not drive or operate heavy machinery or do anything that requires concentration for at least 24 hours after receiving sedation or anesthesia. It is recommended that a responsible adult be with you until morning. You should rest for 6-8 hours after the procedure with your head at about a 30-45?angle. If you develop a spinal headache, lie flat for 6-8 hours. A spinal headache is caused by a CSF leak; you would typically have greater pain when you are up and less pain when lying flat. You may plan to resume normal activity tomorrow. POST-PROCEDURE SITE CARE: You will have a small bandage over the site. Keep this dry. You may remove it in 24 hours. You may shower in 24 hours, after removing the bandage. Do not submerge the site underwater for several days until fully healed (no tub bath, swimming/hot tub, etc.) Be sure your hands are clean when touching near the site. Do not use ointments, creams or powders on the puncture site. DIET/MEDICATIONS: You may resume your previous diet after the procedure. If you receive sedation or narcotic pain medications, avoid any foods or beverages containing alcohol for at least 24 hours after the procedure. Please see the Medication Reconciliation sheet for instructions regarding resuming your home medications. Keep well-hydrated; you are encouraged to drink plenty of caffeinated fluids as this can help to prevent a spinal headache. CALL THE DOCTOR IF: Bright red blood has soaked the bandage. You have pain not relieved by medication. Some soreness at the site is to be expected. You have signs of infection such as: Chills, body aches, fever greater than 101F, redness, swelling or warmth at the puncture site. You have an uncontrolled headache. For any of the above symptoms or for problems or concerns related to the procedure, call [phone] for Friday-Friday 7-5. After-hours and weekends, please call [phone] and ask for the Interventional Speech And Language Specialist on-call. in this encounter Medications at Time of Discharge Medication Sig. Disp. Refills Start Date End Date acetaminophen (TYLENOL) Take 2 tablets by mouth 0 02/06/2018 325 mg tabletIndications: every 4 hours as needed. PAIN allopurinol (ZYLOPRIM) Take 100 mg by mouth 100 mg tablet daily. amLODIPine (NORVASC) 5 mg Take 5 mg by mouth daily. tablet aspirin EC 81 mg tablet Take 1 tablet by mouth 90 tablet 3 02/07/2018 daily. Take with food. atenolol (TENORMIN) 100 Take 1 Tab by mouth 30 Tab 0 01/10/2012 mg tablet daily. atorvastatin (LIPITOR) 20 Take 1 tablet by mouth at 30 tablet 2 2017 mg tablet bedtime daily. baclofen (LIORESAL) 10 mg Take 10 mg by mouth three tablet times daily. carboxymethylcellulose Apply 1 drop to both eyes 02/06/2018 (REFRESH PLUS) 0.5 % dpet four times daily. dapagliflozin 10 mg tab Take 1 tablet by mouth daily. docusate (COLACE) 100 mg Take 1 capsule by mouth 180 capsule 3 2017 capsule twice daily. erythromycin (ROMYCIN) Apply 0.5 inches to both 0 02/06/2018 ophthalmic ointment eyes at bedtime daily. finasteride (PROSCAR) 5 TAKE 1 TABLET BY MOUTH 90 Tab 3 05/02/2016 mg tablet ONCE DAILY gabapentin (NEURONTIN) Take 1 tablet by mouth 90 tablet 3 12/29/2017 800 mg tablet every 8 hours. glimepiride (AMARYL) 2 mg Take 2 mg by mouth twice tablet daily. heparin (porcine) PF Inject 0.5 mL under the 02/06/2018 5,000units/0.5mL skin every 8 hours. DVT injection syringe prophylaxis, continue until mobilizing well HYDROcodone/acetaminophen Take 1-2 tablets by mouth 0 02/06/2018 (NORCO) 5/325 mg tablet every 4 hours as needed ibuprofen (MOTRIN) 600 mg Take 600 mg by mouth tablet every 12 hours as needed. lidocaine (LIDODERM) 5 % Apply 1 patch topically 90 patch 3 2017 topical patch to affected area every 24 hours. Apply patch for 12 hours, then remove for 12 hours before repeating. lisinopril (PRINIVIL; Take 20 mg by mouth ZESTRIL) 10 mg tablet daily. loratadine (CLARITIN) 10 Take 10 mg by mouth mg tablet daily. meloxicam (MOBIC) 7.5 mg Take 1 tablet by mouth 90 tablet 3 2016 tabletIndications: Neck daily. pain metFORMIN (GLUCOPHAGE) Take 500 mg by mouth 500 mg tablet twice daily with meals. methylPREDNIsolone Take medication as 21 tablet 0 02/06/2018 (MEDROL DOSEPAK) 4 mg directed on package for 6 tablet days. Take with food. mirtazapine (REMERON) 30 Take 1 and 1/2 tablet at 45 tablet 1 2017 mg tablet night for mood, anxiety and sleep nitroglycerin (NITROSTAT) Place 1 tablet under 25 tablet 3 02/06/2018 0.4 mg tablet tongue every 5 minutes as needed for Chest Pain. Max of 3 tablets, call 911. ofloxacin (FLOXIN) 0.3 % Place 4 drops in affected 0 02/06/2018 otic solution ear(s) as directed twice daily. Continue until follow up with Dr. Frias on 02/25/18. Discuss at follow up visit. omeprazole DR(+) Take 20 mg by mouth (PRILOSEC) 20 mg capsule daily. phenytoin SR (DILANTIN) Take 3 capsules by mouth 270 capsule 3 2016 100 mg capsule daily. potassium chloride SR Take 20 mEq by mouth (K-DUR) 20 mEq tablet daily. senna/docusate Take 1 tablet by mouth 0 02/06/2018 (SENOKOT-S) 8.6/50 mg twice daily. tablet sertraline (ZOLOFT) 100 Take 300mg in AM (3x 90 tablet 1 01/23/2018 mg tablet 100mg) for mood, anxiety and skin picking sitaGLIPtin (JANUVIA) 100 Take 100 mg by mouth mg tab tablet daily. torsemide(+) (DEMADEX) 20 Take 20 mg by mouth twice mg tablet daily. trimethoprim/sulfamethoxa Take 1 tablet by mouth 0 02/06/20182017 zole (BACTRIM DS) 160/800 twice daily for 14 days. mg tablet as of this encounter Progress Notes * Licha Carrizales RN - 02/06/2018 11:38 AM SCRIPT EDITOR Pt is discharged to [facility]. Report given to DARSHAN Chaves. No scripts needed. Discharge education was provided to pt and he verbalized understanding. IV's removed. Pain medication given prior to transport. Vitals are stable, neuro is intact, and pain is controlled. Pt is leaving with a holter monitor and has an envelope to return when completed in 48 hours. 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 Provided patient relations phone number to him and will notify my charge weigher. * Minerva Mason APRN - 02/06/2018 10:49 AM SCRIPT EDITOR Formatting of this note may be different from the original. Neurosurgery Progress Note Admission Date: 01/30/2018 LOS: 6 days Subjective: Seen earlier this AM. Had a long discussion regarding current hospital treatments and goals along with plans for transition to rehab. Patient occasionally frustrated but understands goal for rehab. Somewhat happy regarding being closer to home and friends. Objective: Brighter mood this AM; Awake, oriented Symmetric smile Mild left ptosis, inability to open eye completely Left uvula deviation, some mild throat irritation No obvious facial swelling Left face sensitive to touch Following commands in all extremities; strength 5/5 on right, strength 4/5 on left A/P: Fidel Henriquez is a 67 y.o. male with stroke like symptoms Hygroma Patient Active Problem List Diagnosis Date Noted Other chest pain 02/01/2018 Type 2 diabetes mellitus with other specified complication ([facility]) 02/01/2018 PVC (premature ventricular contraction) 02/01/2018 Hygroma 01/31/2018 Chronic migraine 01/07/2018 Status post craniectomy 01/07/2018 Weakness of left lower extremity 09/11/2017 Abnormal gait 09/11/2017 Chronic nonsuppurative otitis media of right ear 12/11/2016 Adjustment disorder with mixed anxiety and depressed mood 10/14/2016 Atypical facial pain 01/10/2016 Skin-picking disorder 10/20/2015 Prostate cancer screening 12/14/2014 ED (erectile dysfunction) of organic origin Enlarged prostate with lower urinary tract symptoms (LUTS) Cysto (06/13/2104): (+)BPH w/ intravesical median lobe. Started Finasteride -- 06/13/2014. Hematuria, gross Hematuria w/u (March - May 2014) no evidence of malignancy. 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 Laryngopharyngeal reflux 09/08/2013 Dysphagia, pharyngoesophageal phase 09/08/2013 Acquired skull defect 09/14/2012 S/p wound infection, removal of bone flap [...] of recurrent major depressive disorder, without psychotic features ([facility]) 11/04/2011 SIRS (systemic inflammatory response syndrome) ([facility]) 11/03/2011 Respiratory failure ([facility]) 11/03/2011 Hypokalemia 07/15/2011 Pneumocephalus 07/11/2011 Post-occipital carlos hole electrode placement Groin pain, right lower quadrant 05/21/2011 S/p flakita Weakness 04/10/2011 Partial epilepsy with impairment of consciousness, intractable ([facility]) 2009 S/p left temporal lobectomy in 08/2011. Patient has been seizure free since then. Chronic otitis media 07/31/2010 Hearing loss, mixed, bilateral 07/31/2010 Ataxia 02/22/2008 Morbid obesity (HCC) 02/22/2008 АНДРЕЙ (obstructive sleep apnea) 02/22/2008 Neuropathy Peripheral 02/10/2008 Continue current care; telemetry for monitoring per cardiology Cardiology following with recommendations -Atypical chest pain. Possibly musculoskeletal in nature. Consider treatment with NSAIDs. -Holter monitor ordered with results to be sent to Dr. Natali Ayala at [facility] in [place], [place] -F/u appt with Dr. Ayala on March 12 @ 9am (added to discharge instructions) -Please send copy of discharge summary to Dr. Ayala. -If PVC burden > 20% on Holter, pt may be referred to Dr. Abdelrahman Ratliff for possible PVC ablation -in light of ongoing bigeminy, please continue to monitor K+ and Mg++ and replete to keep greater than or equal to 4.0 and 2.0, respectively -continue aspirin and atenolol K 4.0 this AM, will resume daily scheduled postassium ENT signed off -Given history of MRSA recommend Bactrim for full two weeks. Continue floxin drops as well. Also recommend medrol dose pack (ordered for discharge today) CSF cultures no growth x 3 days Psych - appreciate seeing patient and follow up visits Neurology consulted- felt to be nonphysiological weakness, signed off PT/OT Rehab- appropriate for rehab Discharge planning - planning for [facility] today, transportation set up per Prophylaxis: A)GI: PPI B) Lines: No C) Urinary Catheter: No D) Antibiotic Usage: Yes; Infection present or suspected: Otitis E) VTE: Pharmacological prophylaxis; SQ Heparin and Mechanical prophylaxis; Sequential compression device F) Restraints: Patient assessed for need for restraints. Please call [phone] with any questions. Minerva Mason APRN * Gerry Mccoy MD - 02/06/2018 10:34 AM SCRIPT EDITOR Formatting of this note may be different from the original. Cardiology Daily Progress Note Fidel Henriquez Admission Date: 01/30/2018 Assessment/Plan: Active Problems: Morbid obesity (HCC) АНДРЕЙ (obstructive sleep apnea) HTN (hypertension) Hygroma Other chest pain Type 2 diabetes mellitus with other specified complication (HCC) PVC (premature ventricular contraction) Fidel Henriquez is a 67 y.o. 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 who was transferred from an outside hospital to the neuro ICU for slurred speech and facial asymmetry. 1. Chest pain -CP atypical but certainly has risk factors -Pain has been mostly constant since admission. Some CP is reproducible with palpation, other times pt reports pain on palpation is different than the feeling that someone is sitting on his chest. No radiation, no nausea, no diaphoresis -Serial troponins negative on 01/30-01/31. Today's trop is negative -Echo EF 50-55%, mild concentric LVH, no pericardial effusion, mild AI -Pt reports history of "small" ID, unable to explain details, Denies history of cardiac cath or PCI. Uncertain if he has had a stress test in the past -02/04 EKG showing NSR w/ ventricular bigeminy -Rapid responded last night d/t CP which improved with NTG. Troponin neg. EKG: SR w/ ventricular bigeminy without acute ischemic changes. -again, CP appears to be atypical, but patient does have multiple coronary risk factors including diabetes, hypertension and obesity. 02/05/18 Regadenoson MPI - probably normal. No evidence of significant myocardial ischemia. No high risk prognostic indicators present. ECG portion of the study is negative for ischemia. 2. PVCs -continue ASPHALT ROLLER OPERATOR Atenolol 100mg daily -frequent ventricular bigeminy on telemetry and EKG 3. Hypertension - stable -ASPHALT ROLLER OPERATOR Atenolol 100mg daily, Norvasc 5mg, Lisinopril 20mg daily, Torsemide 20mg BID 4. DM2 -No ASPHALT ROLLER OPERATOR statin > now on atorvastatin 20mg 5. Obesity 6. Bradycardia > not true bradycardia -per staff, bedside O2 monitor is occasionally ready HR as low as 29bpm. -has not been on telemetry, nursing connected to tele this morning -suspect O2 monitor is not picking up PVCs and therefore is reading heart rates low -telemetry showing HRs 59-60bpm with frequent PVCs and ventricular bigeminy. 7. HLD - goal LDL < 70 -initiated on atorvastatin 20mg Recommendations -Atypical chest pain. Possibly musculoskeletal in nature. Consider treatment with NSAIDs. -Holter monitor ordered with results to be sent to Dr. Natali Ayala at [facility] in [place], [place] -F/u appt with Dr. Ayala on March 12 @ 9am (added to discharge instructions) -Please send copy of discharge summary to Dr. Ayala. -If PVC burden > 20% on Holter, pt may be referred to Dr. Abdelrahman Ratliff for possible PVC ablation -in light of ongoing bigeminy, please continue to monitor K+ and Mg++ and replete to keep greater than or equal to 4.0 and 2.0, respectively -continue aspirin and atenolol Please call with any further questions or issues. Will be available if needed. Discussed and examined with Cardiology attending, Dr. Nadine Crawford, RN RADIATION-C ([id number]) Subjective: Doing okay today. Still reporting CP rated at 1. No other complaints. No overnight events. Allergies: Patient has no known allergies. Medications: Scheduled Meds: allopurinol (ZYLOPRIM) tablet 100 mg 100 mg Oral QDAY amLODIPine (NORVASC) tablet 5 mg 5 mg Oral QDAY aspirin EC tablet 81 mg 81 mg Oral QDAY atenolol (TENORMIN) tablet 100 mg 100 mg Oral QDAY atorvastatin (LIPITOR) tablet 20 mg 20 mg Oral QHS baclofen (LIORESAL) tablet 10 mg 10 mg Oral TID bisacodyl (DULCOLAX) rectal suppository 10 mg 10 mg Rectal QDAY bumetanide (BUMEX) tablet 1 mg 1 mg Oral BID(-) carboxymethylcellulose (REFRESH PLUS) 0.5 % ophthalmic solution 1 drop 1 drop Both Eyes QID docusate (COLACE) capsule 100 mg 100 mg Oral BID erythromycin (ROMYCIN) ophthalmic ointment 0.5 inch 0.5 inch Both Eyes QHS finasteride (PROSCAR) tablet 5 mg 5 mg Oral QDAY gabapentin (NEURONTIN) capsule 800 mg 800 mg Oral Q8H heparin (porcine) PF syringe 5,000 Units 5,000 Units Subcutaneous Q8H insulin aspart U-100 (NOVOLOG FLEXPEN) injection PEN 0-14 Units 0-14 Units Subcutaneous ACHS lidocaine (LIDODERM) 5 % topical patch 1 patch 1 patch Topical Q24H* lisinopril (PRINIVIL; ZESTRIL) tablet 20 mg 20 mg Oral QDAY loratadine (CLARITIN) tablet 10 mg 10 mg Oral QDAY milk of magnesia (CONC) oral suspension 10 mL 10 mL Oral QDAY mirtazapine (REMERON) tablet 45 mg 45 mg Oral QHS ofloxacin (FLOXIN) 0.3 % (ophthalmic for otic use) solution 4 drop 4 drop Both Ears BID pantoprazole DR (PROTONIX) tablet 40 mg 40 mg Oral QDAY(21) phenytoin SR (DILANTIN) capsule 300 mg 300 mg Oral QDAY senna/docusate (SENOKOT-S) tablet 1 tablet 1 tablet Oral BID sertraline (ZOLOFT) tablet 300 mg 300 mg Oral QDAY trimethoprim/sulfamethoxazole (BACTRIM DS) 160/800 mg tablet 1 tablet 1 tablet Oral BID Continuous Infusions: PRN and Respiratory Meds:acetaminophen Q4H PRN, docusate BID PRN, HYDROcodone/ acetaminophen Q4H PRN, nitroglycerin Q5 MIN PRN, ondansetron (ZOFRAN) IV Q6H PRN Physical Exam: Vital Signs: Last Filed In 24 Hours Vital Signs: 24 Hour Range BP: 121/50 (02/06 757) Temp: 36.9 C (98.5 F) (02/06 757) Pulse: 58 (02/06 0450) Respirations: 16 PER MINUTE (02/06 757) SpO2: 97 % (02/06 0800) O2 Delivery: CPAP/BiPAP (Pt Owned) (02/06 757) BP: (109-130)/(44-98) Temp: [36.2 C (97.2 F)-36.9 C (98.5 F)] Pulse: [57-73] Respirations: [16 PER MINUTE-19 PER MINUTE] SpO2: [95 %-98 %] O2 Delivery: CPAP/BiPAP (Pt Owned) Intensity Pain Scale 0-10 (Pain 1): Asleep (02/06/18 0400) Intake/Outpur Summary: (Last 24 hours) Intake/Output Summary (Last 24 hours) at 02/06/18 0810 Last data filed at 02/06/18 0757 Gross per 24 hour Intake 930 ml Output 1700 ml Net -770 ml Vitals: 01/31/18 1146 02/01/18 0500 02/04/18 0719 Weight: 130.2 kg (287 lb 0.6 oz) 129.5 kg (285 lb 7.9 oz) 133.1 kg (293 lb 6.9 oz) Physical Exam General Appearance: obese, appears stated age, no acute distress Neck Veins: neck veins are not distended Auscultation/Percussion: lungs clear to auscultation, no rales or rhonchi, no wheezing Cardiac Auscultation: S1, S2 normal, no rub, no gallop, murmurs Carotid Arteries: no bruits Pedal Pulses: normal symmetric pedal pulses Lower Extremity : no lower extremity edema . Neurologic Exam: neurological assessment grossly intact Laboratory Review: Hematology: Lab Results Component Value Date HGB 12.6 02/05/2018 HCT 38.4 02/05/2018 PLTCT 147 02/05/2018 WBC 10.7 02/05/2018 NEUT 59 02/05/2018 ANC 6.20 02/05/2018 ALC 3.40 02/05/2018 MARGARITA 6 02/05/2018 AMC 0.70 02/05/2018 ABC 0.00 02/05/2018 MCV 91.0 02/05/2018 MCHC 33.0 02/05/2018 MPV 7.4 02/05/2018 RDW 15.5 02/05/2018 , Coagulation: Lab Results Component Value Date PT 11.8 02/07/2008 PTT 29.9 02/04/2018 INR 1.0 02/04/2018 , General Chemistry: Lab Results Component Value Date NA 139 02/06/2018 K 4.0 02/06/2018 CL 107 02/06/2018 GAP 7 02/06/2018 BUN 19 02/06/2018 CR 1.09 02/06/2018 GLU 177 02/06/2018 GLU 79 12/05/2005 CA 8.8 02/06/2018 ALBUMIN 3.8 02/04/2018 LACTIC 0.9 01/31/2018 OBSCA 1.16 02/03/2018 MG 2.3 02/06/2018 TOTBILI 0.4 02/04/2018 , Enzymes: Lab Results Component Value Date AST 26 02/04/2018 ALT 26 02/04/2018 ALKPHOS 135 02/04/2018 , Cardiac markers: Lab Results Component Value Date TNI 0.01 02/04/2018 CKMB 0.8 12/29/2011 , Endocrine: Lab Results Component Value Date TSH 1.652 01/11/2011 , HgbA1C: Lab Results Component Value Date HGBA1C 6.9 01/31/2018 and Lipid Profile: Lab Results Component Value Date CHOL 209 01/30/2018 TRIG 399 01/30/2018 HDL 29 01/30/2018 LDL 96 01/30/2018 VLDL 80 01/30/2018 Cardiographics: ECG: normal sinus rhythm, frequent premature ventricular beats, bigeminy Telemetry: normal sinus rhythm, frequent premature ventricular beats, bigeminy 01/31/18 Echocardiogram: LVEF=50-55%, Poor Visualization. Mid To Distal Anteroseptal Hypokinesis: See Contrast Views Apical Series #70 And #74. Mild Concentric LVH Mild Left Atrial Dilatation Mild Aortic Valve Regurgitation No Pericardial Effusion Mild RV Dilatation TAPSE=1.7cm 02/05/18 Regadenoson MPI This study is probably normal with no evidence of significant myocardial ischemia. There is decreased uptake in the basal inferior wall most consisten with diaphragmatic attenuation. Left ventricular systolic function is normal. There are no high risk prognostic indicators present. The ECG portion of the study is negative for ischemia. France Crawford APRN ([id number]) Staff: I have personally seen and examined the patient, discussed case with Nurse practitioner and concur with documentation of history, physical exam, assessment , and treatment plan unless otherwise noted. Mr. Henriquez is a very pleasant 67-year-old male with a history of Baastrup disease, partial epilepsy and craniotomy, chronic mastoiditis, type 2 diabetes mellitus as well as hypertension. Patient was admitted to neurology service for slurred speech and facial asymmetry. He was complaining of chest pain for which cardiology was consulted. He underwent echocardiogram demonstrating ejection fraction of 50-55% and mild aortic regurgitation. Cardiac enzymes were negative last week. He continued to have off-and-on chest pain again and cardiology was consulted. Patient complains of pressure in the chest for about 2 months prior to admission which is nonradiating but does get worse when he takes deep breath. It mostly occurs while he is resting and is not associated with sweating or nausea. Patient heart rate was noted to be in 30s range on a blood pressure monitor yesterday. He was placed on telemetry which demonstrated ventricular bigeminy which was noted on ECG as well. He denies any dizziness or lightheadedness unless he is taking deep breaths. GEN: no acute distress HEENT: unremarkable CHEST: CTA CV: Reg rhythm, nml rate; nml S1 & S2, no S3 or S4; no rub; no murmurs EXT: no pedal edema NEURO: nonfocal Assessment and plan: 1. Chest pain: Stress thallium- probably normal with no evidence of significant myocardial ischemia. EF 56% Continue aspirin 81 mg daily from cardiac standpoint - Continue Atenolol Continue Lipitor 20 mg daily. Keep potassium over 4 and magnesium over 2 in light of ventricular bigeminy. Continue with the atenolol - Follow up Dr. Lucy LAU for ventricular bigeminy, 48 hrs Holter to assess PVC burden. Will sign off. Please consult as needed. * Aristides Augustin - 02/05/2018 3:11 PM SCRIPT EDITOR Psychology consultation service met with this pt on 02/05/18 from 3:10pm - 4: 15pm. The service provided assessment, psychoeducation, and brief therapeutic intervention for identified depressive and anxiety symptoms. The therapist also attempted to reinforce information provided by his medical team regarding his symptoms/treatment plan, and to provide supportive therapy. A cognitive screen was also completed, which suggested the presence of Mild Cognitive Impairment ( SLUMS=21/30). At the patient's request, the sales utility representative spoke at length with the patient's daughter regarding her experiences with the patient. A full consult report will follow. If immediate concerns arise, please do not hesitate to contact this provider. Aristides Augustin, Ph.D. Advanced Clinical Psychology Postdoctoral Fellow Pgr - [phone] * Gerry Mccoy MD - 02/05/2018 2:25 PM SCRIPT EDITOR Formatting of this note may be different from the original. Cardiology Daily Progress Note Fidel Henriquez Admission Date: 01/30/2018 Assessment/Plan: Active Problems: Morbid obesity (HCC) АНДРЕЙ (obstructive sleep apnea) HTN (hypertension) Hygroma Other chest pain Type 2 diabetes mellitus with other specified complication (HCC) PVC (premature ventricular contraction) Fidel Henriquez is a 67 y.o. 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 who was transferred from an outside hospital to the neuro ICU for slurred speech and facial asymmetry. 1. Chest pain -CP atypical but certainly has risk factors -Pain has been mostly constant since admission. Some CP is reproducible with palpation, other times pt reports pain on palpation is different than the feeling that someone is sitting on his chest. No radiation, no nausea, no diaphoresis -Serial troponins negative on 01/30-01/31. Today's trop is negative -Echo EF 50-55%, mild concentric LVH, no pericardial effusion, mild AI -Pt reports history of "small" ID, unable to explain details, Denies history of cardiac cath or PCI. Uncertain if he has had a stress test in the past -02/04 EKG showing NSR w/ ventricular bigeminy -Rapid responded last night d/t CP which improved with NTG. Troponin neg. EKG: SR w/ ventricular bigeminy without acute ischemic changes. -again, CP appears to be atypical, but patient does have multiple coronary risk factors including diabetes, hypertension and obesity. 02/05/18 Regadenoson MPI - probably normal. No evidence of significant myocardial ischemia. No high risk prognostic indicators present. ECG portion of the study is negative for ischemia. 2. PVCs -continue ASPHALT ROLLER OPERATOR Atenolol 100mg daily -frequent ventricular bigeminy on telemetry and EKG 3. Hypertension -ASPHALT ROLLER OPERATOR Atenolol 100mg daily, Norvasc 5mg, Lisinopril 20mg daily, Torsemide 20mg BID 4. DM2 -No ASPHALT ROLLER OPERATOR statin 5. Obesity 6. Bradycardia > not true bradycardia -per staff, bedside O2 monitor is occasionally ready HR as low as 29bpm. -has not been on telemetry, nursing connected to tele this morning -suspect O2 monitor is not picking up PVCs and therefore is reading heart rates low -telemetry showing HRs 59-60bpm with frequent PVCs and ventricular bigeminy. Recommendations -stress test is negative, plan on 48 hour Holter to determine PVC burden. If > 20%, would have patient follow up with EP for consideration of PVC ablation. Will refer patient to establish with Dr. Natali Ayala, Director Of Psychology in [place], [place]. Also plan for 6 week f/u with Dr. Ratliff here at . Will have Holter report sent to Dr. Ratliff. -Please page MAC @ [phone] to have ZioPatch placed prior to discharge. -consider decreasing full dose aspirin to 81mg. -in light of ongoing bigeminy, please continue to monitor K+ and Mg++ and replete to keep greater than or equal to 4.0 and 2.0, respectively Discussed and examined with Cardiology attending, Dr. Nadine Crawford, RN RADIATION-C ([id number]) Subjective: Continues to have constant CP, improved from last night. Remains atypical in nature, mostly reproducible. Denies radiation of CP, diaphoresis or nausea. Allergies: Patient has no known allergies. Medications: Scheduled Meds: allopurinol (ZYLOPRIM) tablet 100 mg 100 mg Oral QDAY amLODIPine (NORVASC) tablet 5 mg 5 mg Oral QDAY aspirin tablet 325 mg 325 mg Oral QDAY atenolol (TENORMIN) tablet 100 mg 100 mg Oral QDAY atorvastatin (LIPITOR) tablet 20 mg 20 mg Oral QHS baclofen (LIORESAL) tablet 10 mg 10 mg Oral TID bisacodyl (DULCOLAX) rectal suppository 10 mg 10 mg Rectal QDAY bumetanide (BUMEX) tablet 1 mg 1 mg Oral BID(9-17) carboxymethylcellulose (REFRESH PLUS) 0.5 % ophthalmic solution 1 drop 1 drop Both Eyes QID docusate (COLACE) capsule 100 mg 100 mg Oral BID erythromycin (ROMYCIN) ophthalmic ointment 0.5 inch 0.5 inch Both Eyes QHS finasteride (PROSCAR) tablet 5 mg 5 mg Oral QDAY gabapentin (NEURONTIN) capsule 800 mg 800 mg Oral Q8H heparin (porcine) PF syringe 5,000 Units 5,000 Units Subcutaneous Q8H insulin aspart U-100 (NOVOLOG FLEXPEN) injection PEN 0-14 Units 0-14 Units Subcutaneous ACHS lidocaine (LIDODERM) 5 % topical patch 1 patch 1 patch Topical Q24H* lisinopril (PRINIVIL; ZESTRIL) tablet 20 mg 20 mg Oral QDAY loratadine (CLARITIN) tablet 10 mg 10 mg Oral QDAY milk of magnesia (CONC) oral suspension 10 mL 10 mL Oral QDAY mirtazapine (REMERON) tablet 45 mg 45 mg Oral QHS ofloxacin (FLOXIN) 0.3 % (ophthalmic for otic use) solution 4 drop 4 drop Both Ears BID pantoprazole DR (PROTONIX) tablet 40 mg 40 mg Oral QDAY(21) phenytoin SR (DILANTIN) capsule 300 mg 300 mg Oral QDAY senna/docusate (SENOKOT-S) tablet 1 tablet 1 tablet Oral BID sertraline (ZOLOFT) tablet 300 mg 300 mg Oral QDAY trimethoprim/sulfamethoxazole (BACTRIM DS) 160/800 mg tablet 1 tablet 1 tablet Oral BID Continuous Infusions: PRN and Respiratory Meds:acetaminophen Q4H PRN, docusate BID PRN, HYDROcodone/ acetaminophen Q4H PRN, nitroglycerin Q5 MIN PRN, ondansetron (ZOFRAN) IV Q6H PRN Physical Exam: Vital Signs: Last Filed In 24 Hours Vital Signs: 24 Hour Range BP: 113/54 (02/05 1410) Temp: 36.6 C (97.9 F) (02/05 1410) Pulse: 57 (02/05 1410) Respirations: 16 PER MINUTE (02/05 1410) SpO2: 95 % (02/05 1410) O2 Delivery: None (Room Air) (02/05 1410) BP: (97-147)/(42-74) Temp: [36.6 C (97.9 F)-36.9 C (98.5 F)] Pulse: [30-77] Respirations: [16 PER MINUTE-25 PER MINUTE] SpO2: [94 %-97 %] O2 Delivery: None (Room Air) Intensity Pain Scale 0-10 (Pain 1): 4 (02/04/18 2303) Intake/Outpur Summary: (Last 24 hours) Intake/Output Summary (Last 24 hours) at 02/05/18 1425 Last data filed at 02/05/18 1015 Gross per 24 hour Intake 250 ml Output 900 ml Net -650 ml Vitals: 01/31/18 1146 02/01/18 0500 02/04/18 0719 Weight: 130.2 kg (287 lb 0.6 oz) 129.5 kg (285 lb 7.9 oz) 133.1 kg (293 lb 6.9 oz) Physical Exam General Appearance: well developed, well nourished, appears stated age, no acute distress Neck Veins: neck veins are not distended Auscultation/Percussion: lungs clear to auscultation, no rales or rhonchi, no wheezing Cardiac Auscultation: S1, S2 normal, no rub, no gallop, murmurs Carotid Arteries: no bruits Pedal Pulses: normal symmetric pedal pulses Lower Extremity : no lower extremity edema . Neurologic Exam: neurological assessment grossly intact Laboratory Review: Hematology: Lab Results Component Value Date HGB 12.6 02/05/2018 HCT 38.4 02/05/2018 PLTCT 147 02/05/2018 WBC 10.7 02/05/2018 NEUT 59 02/05/2018 ANC 6.20 02/05/2018 ALC 3.40 02/05/2018 MARGARITA 6 02/05/2018 AMC 0.70 02/05/2018 ABC 0.00 02/05/2018 MCV 91.0 02/05/2018 MCHC 33.0 02/05/2018 MPV 7.4 02/05/2018 RDW 15.5 02/05/2018 , Coagulation: Lab Results Component Value Date PT 11.8 02/07/2008 PTT 29.9 02/04/2018 INR 1.0 02/04/2018 , General Chemistry: Lab Results Component Value Date NA 138 02/05/2018 K 3.8 02/05/2018 CL 108 02/05/2018 GAP 8 02/05/2018 BUN 21 02/05/2018 CR 0.86 02/05/2018 GLU 166 02/05/2018 GLU 79 12/05/2005 CA 8.8 02/05/2018 ALBUMIN 3.8 02/04/2018 LACTIC 0.9 01/31/2018 OBSCA 1.16 02/03/2018 MG 2.2 02/05/2018 TOTBILI 0.4 02/04/2018 , Enzymes: Lab Results Component Value Date AST 26 02/04/2018 ALT 26 02/04/2018 ALKPHOS 135 02/04/2018 , Cardiac markers: Lab Results Component Value Date TNI 0.01 02/04/2018 CKMB 0.8 12/29/2011 , Endocrine: Lab Results Component Value Date TSH 1.652 01/11/2011 , HgbA1C: Lab Results Component Value Date HGBA1C 6.9 01/31/2018 and Lipid Profile: Lab Results Component Value Date CHOL 209 01/30/2018 TRIG 399 01/30/2018 HDL 29 01/30/2018 LDL 96 01/30/2018 VLDL 80 01/30/2018 Cardiographics: ECG: normal sinus rhythm, frequent premature ventricular beats, bigeminy Telemetry: normal sinus rhythm, frequent premature ventricular beats, bigeminy 01/31/18 Echocardiogram: LVEF=50-55%, Poor Visualization. Mid To Distal Anteroseptal Hypokinesis: See Contrast Views Apical Series #70 And #74. Mild Concentric LVH Mild Left Atrial Dilatation Mild Aortic Valve Regurgitation No Pericardial Effusion Mild RV Dilatation TAPSE=1.7cm 02/05/18 Regadenoson MPI This study is probably normal with no evidence of significant myocardial ischemia. There is decreased uptake in the basal inferior wall most consisten with diaphragmatic attenuation. Left ventricular systolic function is normal. There are no high risk prognostic indicators present. The ECG portion of the study is negative for ischemia. France Crawford APRN ([id number]) Staff: I have personally seen and examined the patient, discussed case with Nurse practitioner and concur with documentation of history, physical exam, assessment , and treatment plan unless otherwise noted. Mr. Henriquez is a very pleasant 67-year-old male with a history of Baastrup disease, partial epilepsy and craniotomy, chronic mastoiditis, type 2 diabetes mellitus as well as hypertension. Patient was admitted to neurology service for slurred speech and facial asymmetry. He was complaining of chest pain for which cardiology was consulted. He underwent echocardiogram demonstrating ejection fraction of 50-55% and mild aortic regurgitation. Cardiac enzymes were negative last week. He continued to have off-and-on chest pain again and cardiology was consulted. Patient complains of pressure in the chest for about 2 months prior to admission which is nonradiating but does get worse when he takes deep breath. It mostly occurs while he is resting and is not associated with sweating or nausea. Patient heart rate was noted to be in 30s range on a blood pressure monitor yesterday. He was placed on telemetry which demonstrated ventricular bigeminy which was noted on ECG as well. He denies any dizziness or lightheadedness unless he is taking deep breaths. GEN: no acute distress HEENT: unremarkable CHEST: CTA CV: Reg rhythm, nml rate; nml S1 & S2, no S3 or S4; no rub; no murmurs EXT: no pedal edema NEURO: nonfocal Assessment and plan: 1. Chest pain: Stress thallium- probably normal with no evidence of significant myocardial ischemia. EF 56% Continue aspirin, however dose can be decreased to 81 mg daily from cardiac standpoint - Continue Atenolol Continue Lipitor 20 mg daily. Keep potassium over 4 and magnesium over 2 in light of ventricular bigeminy. Continue with the atenolol - he has intermittent bigeminal rhythm. Will get 48 hrs Holter as outpatient. He is to follow up with EP in [facility] with Dr. Ayala to assess PVCs burden on holter. If >20% then may consider antiarrhythmic meds VS ablation. Follow up with Dr. Ratliff in 6 weeks as well. * Margarita Meraz, OT - 02/05/2018 1:16 PM SCRIPT EDITOR OCCUPATIONAL THERAPY NO TREATMENT NOTE Patient off unit for stress test and unavailable for occupational therapy. OT will continue to follow. Therapist: ISABEL Latham [id number] Date: 02/05/2018 * Minerva Mason APRN - 02/05/2018 10:30 AM SCRIPT EDITOR Formatting of this note may be different from the original. Neurosurgery Progress Note Admission Date: 01/30/2018 LOS: 5 days Subjective: Was rapid responded overnight due to chest pain, improved with nitroglycerin. Troponin's negative. Getting stress test today, back from this AM testing, still has afternoon testing with cardiology. No new concern today, reports chest pain is dull this AM. Continued left facial, arm and leg sensitivities to touch Objective: Awake, oriented Symmetric smile Left ptosis, inability to open eye completely No obvious facial swelling Left face sensitive to touch Following commands in all extremities; strength 5/5 on right, strength 4/5 on left A/P: Fidel Henriquez is a 67 y.o. male with stroke like symptoms Hygroma Patient Active Problem List Diagnosis Date Noted Other chest pain 02/01/2018 Type 2 diabetes mellitus with other specified complication ([facility]) 02/01/2018 PVC (premature ventricular contraction) 02/01/2018 Hygroma 01/31/2018 Chronic migraine 01/07/2018 Status post craniectomy 01/07/2018 Weakness of left lower extremity 09/11/2017 Abnormal gait 09/11/2017 Chronic nonsuppurative otitis media of right ear 12/11/2016 Adjustment disorder with mixed anxiety and depressed mood 10/14/2016 Atypical facial pain 01/10/2016 Skin-picking disorder 10/20/2015 Prostate cancer screening 12/14/2014 ED (erectile dysfunction) of organic origin Enlarged prostate with lower urinary tract symptoms (LUTS) Cysto (06/13/2104): (+)BPH w/ intravesical median lobe. Started Finasteride -- 06/13/2014. Hematuria, gross Hematuria w/u (March - May 2014) no evidence of malignancy. 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 Laryngopharyngeal reflux 09/08/2013 Dysphagia, pharyngoesophageal phase 09/08/2013 Acquired skull defect 09/14/2012 S/p wound infection, removal of bone flap [...] of recurrent major depressive disorder, without psychotic features ([facility]) 11/04/2011 SIRS (systemic inflammatory response syndrome) ([facility]) 11/03/2011 Respiratory failure ([facility]) 11/03/2011 Hypokalemia 07/15/2011 Pneumocephalus 07/11/2011 Post-occipital carlos hole electrode placement Groin pain, right lower quadrant 05/21/2011 S/p flakita Weakness 04/10/2011 Partial epilepsy with impairment of consciousness, intractable (HCC) 2009 S/p left temporal lobectomy in 08/2011. Patient has been seizure free since then. Chronic otitis media 07/31/2010 Hearing loss, mixed, bilateral 07/31/2010 Ataxia 02/22/2008 Morbid obesity (HCC) 02/22/2008 АНДРЕЙ (obstructive sleep apnea) 02/22/2008 Neuropathy Peripheral 02/10/2008 Continue current care; telemetry for monitoring per cardiology Cardiology following - thallium testing today K 3.8- replacement ordered ENT signed off -Given history of MRSA recommend Bactrim for full two weeks. Continue floxin drops as well. Also recommend medrol dose pack. (will start steroid after cardiology testing completed) CSF cultures no growth x 3 days Psych consulted - appreciate seeing patient Neurology consulted- felt to be nonphysiological weakness, signed off PT/OT Rehab- appropriate for rehab Discharge planning - planning for [facility] when medically stable Prophylaxis: A)GI: PPI B) Lines: No C) Urinary Catheter: No D) Antibiotic Usage: Yes; Infection present or suspected: Otitis E) VTE: Pharmacological prophylaxis; SQ Heparin and Mechanical prophylaxis; Sequential compression device F) Restraints: Patient assessed for need for restraints. Please call [phone] with any questions. Minerva Mason APRN * Kati Thomas, PT - 02/05/2018 9:52 AM SCRIPT EDITOR PHYSICAL THERAPY NOTE Patient was unavailable for physical therapy, off unit for Stress Test. Physical therapy will continue to follow and provide intervention as indicated. Therapist: Kati Thomas, PT Date: 02/05/2018 * Aristides Augustin - 02/05/2018 9:22 AM SCRIPT EDITOR Psychology consultation and liaison service attempted to meet with pt at 9: 22am. However, pt was off unit completing a stress test (according to nursing staff). This service will return to provide support to pt. Please do not hesitate to page with any immediate concerns. Aristides Augustin Advanced Clinical Psychology Postdoctoral Fellow Pg# - [phone] * Cecily Sanders MD - 02/04/2018 10:29 PM SCRIPT EDITOR Patient rapid responded for bradycardia and diaphoresis EKG obtained - looks grossly unchanged from AM EKG, STAT trop negative SBP stable during event. No change in neuro status - alert, oriented. Patients reports crushing chest pain, sob, dizziness. Did resolve over time with nitro. O2 on patient, already on ASA. Will trend 2 more trops. Plan for stress test tomorrow with cardiology. Will hold off on further testing at this time as pain resolved with nitro. Cecily Sanders [phone] * French Skinner, RT - 02/04/2018 9:45 PM SCRIPT EDITOR Pt assessment revealed bradycardia when pt placed on continuous pulse oximetry monitor for АНДРЕЙ protocol. Verified palpable pulse to be same as monitor in low 30s. Tele monitor was reporting a HR of 70 at the time. Confirmed w/ RN that there was a difference in monitors. Pt assessment also revealed symptoms to include increased fatigue and chest pain/heaviness. CONSTRUCTION PERSON called. Post CONSTRUCTION PERSON completion pt placed on home CPAP machine w/ 3 lpm O2 bled in. * Katie Mccormack, RN - 02/04/2018 9:40 PM SCRIPT EDITOR Patient complaining of chest pain, "like someone is sitting on my chest", rating pain 5/10, and diaphoretic. Heart rate manually checked, low 30s. Neurosurgery paged. Rapid response team activated. Will continue to monitor. * Kati Thomas, PT - 02/04/2018 2:03 PM SCRIPT EDITOR PHYSICAL THERAPY PROGRESS NOTE MOBILITY: Mobility Progressive Mobility Level: Stand Level of Assistance: Assist X2 Assistive Device: (parallel bars) Time Tolerated: 11-30 minutes Activity Limited By: Weakness SUBJECTIVE: Subjective Significant hospital events: 67 y.o. 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 who was transferred from an outside hospital to the neuro ICU for slurred speech and facial asymmetry. He is being evaluated for mastoiditis and stroke. He is also complaining of chest pain which is prompting urgent cardiology consult. Negative for stroke 3/3 Mental / Cognitive Status: Alert;Cooperative;Follows Commands (flat affect ) Persons Present: Receiver Setter Pain: Patient complains of pain Pain Location: Left;Face Pain Description: Aching Pain Interventions: Patient agrees to participate in therapy;Patient assisted into position of comfort;Patient pre-medicated Ambulation Assist: Independent Mobility in Community with Device Patient Owned Equipment: Single Point Cane Home Situation: Lives Alone Type of Home: Apartment (independent living) Entry Stairs: No Stairs In-Home Stairs: No Stairs Comments: Per patient's daughter, patient lives in a retired living community. Patient's daughter and additional medication care manager come to house to assist with IADLs and supervision for safety during ADLs. Patient has history of falls. Per daughter, patient appears to have difficulty performing ADLs.. Per daughters reports, patient had bilateral leg braces that he wore starting in 2011. Did not need them anymore in the past year. ROM: ROM LE ROM: WFL STRENGTH: Strength R LE WNL: (R LE grossly 5/5) L LE WNL: (L LE grossly 3/5) POSTURE/NEURO: Posture / Neurological Head Control: Independent Posture: Forward Head;Rounded Shoulders BED MOBILITY/TRANSFERS: Bed Mobility/Transfers Bed Mobility: Supine to Sit: Minimal Assist (with log roll ) Comments: Up to wheelchair via sit to stand lift. Wheeled to gym to use parallel bars. Transfer Type: Sit to Stand Transfer: Assistance Level: To/From;Moderate Assist;x2 People;Wheelchair Transfer: Assistive Device: Parallel Bars Transfers: Type Of Assistance: Verbal Cues;Knees(s) Blocked;For Balance;For Strength Deficit;For Safety Considerations (L knee blocked ) Other Transfer Type: Mechanical Lift (sit to stand lift ) Other Transfer: Assistance Level: From;Bed;To;Bed Side Chair Other Transfer: Assistive Device: Mechanical Lift Other Transfer: Type Of Assistance: For Strength Deficit;For Safety Considerations End Of Activity Status: Up in Chair;Nursing Notified;Instructed Patient to Request Assist with Mobility;Instructed Patient to Use Call Light Comments: Sit to stand x 3 trials in parallel bars. Able to stand x 1 minute each trial and anle to take step forward and back with R LE while L LE is blocked. BALANCE: Balance Sitting Balance: Static Sitting Balance;2 UE Support;Standby Assist Standing Balance: Static Standing Balance;Dynamic Standing Balance;2 UE support; Moderate Assist;x2 People GAIT: Gait Gait Distance: 1 feet (steps forward and back with R LE, unable to advance L ) Gait: Assistance Level: Maximal Assist;x2 People Gait: Assistive Device: Parallel Bars Gait: Descriptors: Pace: Slow;Decreased knee extension in stance phase LLE; Decreased stance time LLE;Loss of balance Activity Limited By: Weakness;Complaint of Fatigue WHEELCHAIR MOBILITY: ACTIVITY/EXERCISE: Activity / Exercise Sit Edge Of Bed: 5 minutes Sit Edge Of Bed Assist: Stand By Assist Stand At Bedside : 1 minutes (x 3 trials) Stand At Bedside Assist: Moderate Assist;x2 People EDUCATION: Education Persons Educated: Patient/Family Patient Barriers To Learning: None Noted Teaching Methods: Verbal Instruction Patient Response: Verbalized Understanding Topics: Plan/Goals of PT Interventions;Mobility Progression;Safety Awareness;Up with Assist Only;Importance of Increasing Activity;Recommend Continued Therapy ASSESSMENT/PROGRESS: Assessment/Progress Impaired Mobility Due To: Decreased Strength;Pain;Impaired Balance;Safety Concerns;Decreased Activity Tolerance Assessment/Progress: Should Improve w/ Continued PT AM-PAC 6 Clicks Basic Mobility Inpatient Turning from your back to your side while in a flat bed without using bed rails : A Little Moving from lying on your back to sitting on the side of a flatbed without using bedrails : A Little Moving to and from a bed to a chair (including a wheelchair): Total Standing up from a chair using your arms (e.g. wheelchair, or bedside chair): Total To walk in hospital room: Total Climbing 3-5 steps with a railing: Total Raw Score: 10 Standardized (T-scale) Score: 28.13 Basic Mobility CMS 0-100%: 71.92 CMS G Code Modifier for Basic Mobility: CL GOALS: Goals Goal Formulation: With Patient/Family Time For Goal Achievement: 3 days, To, 5 days Pt Will Go Supine To/From Sit: w/ Stand By Assist Pt Will Transfer Bed/Chair: w/ Minimal Assist Pt Will Transfer Sit to Stand: w/ Minimal Assist Pt Will Ambulate: 31-50 Feet, w/ Moderate Assist PLAN: Plan Treatment Interventions: Mobility Training;Strengthening;Balance Activities; Coordination Training;Endurance Training;Neuromuscular Reeducation Plan Frequency: 5 Days per Week Comments: Continue to tial standing in parallel bars in gym. Trial vector as appropriate. RECOMMENDATIONS: PT Discharge Recommendations PT Discharge Recommendations: Inpatient Setting;Recommend Physical Medicine and Rehabilitation Consult to address most appropriate level of rehabilitation placement Therapist: Kati Thomas, PT Date: 02/04/2018 * Luis Martell MD - 02/04/2018 11:50 AM SCRIPT EDITOR S/ Patient still with pain to left face. Continued drainage from left ear but improving. Getting worked up for bradycardia. O/ BP 118/66 (BP Source: Arm, Right) | Pulse 57 | Temp 36.8 C (98.2 F) | Ht 185.4 cm (73") | Wt 133.1 kg (293 lb 6.9 oz) | SpO2 95% | BMI 38.71 kg/m NAD oriented x3 Eye exam periorbital edema on the left has decreased still with upper lid edema obscuring visual jackson PERRL EOMI Left facial edema also with improvement tender to touch Left ear cavity patent with crusting mucopurulent debris. Minimal granulation tissue. CN II XII grossly intact on left A/Recs Improving on IV rocefin. Ok to transition to oral. Given history of MRSA recommend Bactrim for full two weeks. Continue floxin drops as well. Also recommend medrol dose pack. Will sign off. Call with questions. Will need f/u with Dr. Frias after discharge from rehab. Luis Martell MD [phone] * Rolanda Masonly, RN RADIATION - 02/04/2018 9:09 AM SCRIPT EDITOR Formatting of this note may be different from the original. Neurosurgery Progress Note Admission Date: 01/30/2018 LOS: 4 days Subjective: Notified by nursing this AM of bradycardia. Patient seen and he reports recurrent midline chest pain, and vocal changes with hoarse voice. He just feels off. Frustrated because of unclear diagnosis. Objective: Awake, oriented Symmetric smile Left ptosis, inability to open eye completely No obvious facial swelling Left face sensitive to touch Following commands in all extremities; strength 5/5 on right, strength 3-4/5 on left (more uncomfortable this AM, with chest discomfort/feeling SOB) Left drift A/P: Fidel Henriquez is a 67 y.o. male with stroke like symptoms Hygroma Patient Active Problem List Diagnosis Date Noted Other chest pain 02/01/2018 Type 2 diabetes mellitus with other specified complication (HCC) 02/01/2018 PVC (premature ventricular contraction) 02/01/2018 Hygroma 01/31/2018 Chronic migraine 01/07/2018 Status post craniectomy 01/07/2018 Weakness of left lower extremity 09/11/2017 Abnormal gait 09/11/2017 Chronic nonsuppurative otitis media of right ear 12/11/2016 Adjustment disorder with mixed anxiety and depressed mood 10/14/2016 Atypical facial pain 01/10/2016 Skin-picking disorder 10/20/2015 Prostate cancer screening 12/14/2014 ED (erectile dysfunction) of organic origin Enlarged prostate with lower urinary tract symptoms (LUTS) Cysto (06/13/2104): (+)BPH w/ intravesical median lobe. Started Finasteride -- 06/13/2014. Hematuria, gross Hematuria w/u (March - May 2014) no evidence of malignancy. 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 Laryngopharyngeal reflux 09/08/2013 Dysphagia, pharyngoesophageal phase 09/08/2013 Acquired skull defect 09/14/2012 S/p wound infection, removal of bone flap [...] of recurrent major depressive disorder, without psychotic features ([facility]) 11/04/2011 SIRS (systemic inflammatory response syndrome) ([facility]) 11/03/2011 Respiratory failure ([facility]) 11/03/2011 Hypokalemia 07/15/2011 Pneumocephalus 07/11/2011 Post-occipital carlos hole electrode placement Groin pain, right lower quadrant 05/21/2011 S/p flakita Weakness 04/10/2011 Partial epilepsy with impairment of consciousness, intractable ([facility]) 2009 S/p left temporal lobectomy in 08/2011. Patient has been seizure free since then. Chronic otitis media 07/31/2010 Hearing loss, mixed, bilateral 07/31/2010 Ataxia 02/22/2008 Morbid obesity (HCC) 02/22/2008 АНДРЕЙ (obstructive sleep apnea) 02/22/2008 Neuropathy Peripheral 02/10/2008 Continue current care; placed on telemetry for monitoring Re consult cardiology - check troponin, EKG K 3.2- replacement ordered ENT following, on rocephin, 5 day course, last dose today - discussed with Dr. Martell with ENT, he will see patient today CSF cultures no growth x 2 days PT/OT Rehab- appropriate for rehab Discharge planning - planning for [facility] when medically stable Prophylaxis: A)GI: PPI B) Lines: No C) Urinary Catheter: No D) Antibiotic Usage: Yes; Infection present or suspected: Otitis E) VTE: Pharmacological prophylaxis; SQ Heparin and Mechanical prophylaxis; Sequential compression device F) Restraints: Patient assessed for need for restraints. Please call [phone] with any questions. Minerva Mason APRN * Margarita Meraz, OT - 02/04/2018 9:00 AM SCRIPT EDITOR OCCUPATIONAL THERAPY PROGRESS NOTE Patient Name: Fidel Henriquez Room/Bed: [place] [address] Admitting Diagnosis: stroke like symptoms Hygroma Mobility Progressive Mobility Level: Active transfer to chair Level of Assistance: Assist X2 Assistive Device: Transfer / slide board Time Tolerated: 11-30 minutes Activity Limited By: Weakness Subjective Precautions: Standard;Falls Pain / Complaints: Patient has no c/o pain;Patient agrees to participate in therapy Comments: Patient supine in bed upon OT arrival and agreeable to treatment. At end of session, patient left sitting in bedside chair, call light in reach, and all needs met. Objective Psychosocial Status: Willing and Cooperative to Participate Persons Present: RN (security system technician) ADL's Where Assessed: Chair Eating Assist: Independent Grooming Assist: Stand By Assist Functional Transfer Assist: Total Assist (minimal A x2) Functional Transfer Deficits: Increased Time to Complete Comment: Patient transferred from supine to EOB with stand by assistance. Patient completes slide board transfer from EOB to bedside recliner with minimal assistance x2. Patient requires assistance to place and remove board. Patient reports "feeling different" this morning. 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 Flat affect. Education Persons Educated: Patient Teaching Methods: Verbal Instruction Patient Response: Verbalized Understanding Topics: Role of OT, Goals for Therapy Goal Formulation: With Patient Assessment Assessment: Decreased ADL Status;Decreased UE Strength;Decreased Endurance; Decreased Self-Care Trans Prognosis: Good;w/Cont OT s/p Acute Discharge Goal Formulation: Patient AM-PAC 6 Clicks Daily Activity Inpatient Putting on and taking off regular lower body clothes?: A Lot Bathing (Including washing, rinsing, drying): A Lot Toileting, which includes using toilet, bedpan, or urinal: Total Putting on and taking off regular upper body clothing: A Little Taking care of personal grooming such as brushing teeth: A Little Eating meals?: None Daily Activity Raw Score: 15 Standardized (t-scale) score: 34.69 CMS 0-100% Score: 56.46 CMS G Code Modifier: CK Plan Treatment Interventions: ADL Retraining OT Frequency: 5x/week Next session: slide board transfer to commode ADL Goals Patient Will Perform LE Dressing: In Chair, w/ Minimum Assist Patient Will Perform Toileting: w/ Moderate Assist Functional Transfer Goals Pt Will Perform All Functional Transfers: Moderate Assist OT Discharge Recommendations OT Discharge Recommendations: Inpatient Setting Equipment Recommendations: Shower Chair Recommend ongoing assistance for: In and out of house, Ambulation, Safety concerns, Dressing, Bathing, Toileting, Bed mobility, Transfers Therapist: FRENCH Latham/Radha [id number] Date: 02/04/2018 * Angela Bryant RN - 02/04/2018 8:32 AM SCRIPT EDITOR RN to bedside to do initial assessment. Patient on continuous pulse oximetry. HR bouncing between 58 and 29. Patient states that "every once in a while I can feel it doing something weird". Vital signs stable. Team notified. Will continue to monitor. * Mitchel Rosen, RN - 02/03/2018 5:32 PM SCRIPT EDITOR I have read and agree with the documentation of Sulema Holloway student nurse. * Margarita Meraz OT - 02/03/2018 2:00 PM SCRIPT EDITOR OCCUPATIONAL THERAPY PROGRESS NOTE Patient Name: Fidel Henriquez Room/Bed: [id number] Admitting Diagnosis: stroke like symptoms Hygroma Mobility Progressive Mobility Level: Stand Level of Assistance: Assist X2 Assistive Device: (Standing Frame) Time Tolerated: 0-10 minutes Activity Limited By: Weakness;Pain Subjective Precautions: Standard;Falls Pain / Complaints: Patient agrees to participate in therapy Comments: Patient up to chair upon OT arrival and agreeable to treatment. At end of session, patient left sitting in bedside chair, tabs alarm engaged, call light in reach, and all needs met. Objective Psychosocial Status: Willing and Cooperative to Participate Persons Present: (Brand Director) ADL's Where Assessed: Chair Eating Assist: Independent Eating Deficits: No Assist Needed Grooming Assist: Stand By Assist Grooming Deficits: Setup LE Dressing Assist: Total Assist LE Dressing Deficits: Don/Doff R Sock;Don/Doff L Sock Functional Transfer Assist: Total Assist Functional Transfer Deficits: (Sit to stand lift) Comment: Patient tolerates 3 minutes of static standing in standing frame prior to requesting to return to seated. L LE buckled severely while standing in standing frame but due to knee blocks, patient was safe from falling. Activity Tolerance Endurance: 4/5 Tolerates 30+ Minutes Exercise W/O Fatigue Sitting Balance: 4+/5 Moves/Returns Trunkal Midpoint 1-2 Inches in Multiple Planes Cognition Overall Cognitive Status: WFL to Adequately Complete Self Care Tasks Safely Orientation: Alert & Oriented x4 Attention: Awake/Alert Education Persons Educated: Patient Teaching Methods: Verbal Instruction Patient Response: Verbalized Understanding Topics: Role of OT, Goals for Therapy Goal Formulation: With Patient Assessment Assessment: Decreased ADL Status;Decreased Self-Care Trans;Decreased High-Level ADLs Prognosis: Good;w/Cont OT s/p Acute Discharge Goal Formulation: Patient AM-PAC 6 Clicks Daily Activity Inpatient Putting on and taking off regular lower body clothes?: A Lot Bathing (Including washing, rinsing, drying): A Lot Toileting, which includes using toilet, bedpan, or urinal: Total Putting on and taking off regular upper body clothing: A Little Taking care of personal grooming such as brushing teeth: A Little Eating meals?: A Little Daily Activity Raw Score: 14 Standardized (t-scale) score: 33.39 CMS 0-100% Score: 59.67 CMS G Code Modifier: CK Plan Treatment Interventions: ADL Retraining OT Frequency: 5x/week Next session: continue to progress ADLs and standing endurance, NuStep ADL Goals Patient Will Perform LE Dressing: In Chair, w/ Minimum Assist Patient Will Perform Toileting: w/ Moderate Assist Functional Transfer Goals Pt Will Perform All Functional Transfers: Moderate Assist OT Discharge Recommendations OT Discharge Recommendations: Inpatient Setting Equipment Recommendations: Shower Chair Recommend ongoing assistance for: In and out of house, Ambulation, Safety concerns, Dressing, Bathing, Toileting, Bed mobility, Transfers Therapist: ISABEL Latham [id number] Date: 02/03/2018 * Kati Thomas, PT - 02/03/2018 9:58 AM SCRIPT EDITOR PHYSICAL THERAPY PROGRESS NOTE SUBJECTIVE: Subjective Significant hospital events: 67 y.o. 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 who was transferred from an outside hospital to the neuro ICU for slurred speech and facial asymmetry. He is being evaluated for mastoiditis and stroke. He is also complaining of chest pain which is prompting urgent cardiology consult. Negative for stroke 01/31 Mental / Cognitive Status: Alert;Cooperative;Follows Commands (flat affect ) Persons Present: Receiver Setter (second PT) Pain: Patient complains of pain Pain Location: Left;Face Pain Description: Aching Pain Interventions: Patient agrees to participate in therapy;Patient assisted into position of comfort;Patient pre-medicated Ambulation Assist: Independent Mobility in Community with Device Patient Owned Equipment: Single Point Cane Home Situation: Lives Alone Type of Home: Apartment (independent living) Entry Stairs: No Stairs In-Home Stairs: No Stairs Comments: Per patient's daughter, patient lives in a retired living community. Patient's daughter and additional medication care manager come to house to assist with IADLs and supervision for safety during ADLs. Patient has history of falls. Per daughter, patient appears to have difficulty performing ADLs.. Per daughters reports, patient had bilateral leg braces that he wore starting in 2011. Did not need them anymore in the past year. ROM: ROM LE ROM: WFL STRENGTH: Strength R LE WNL: (R LE grossly 5/5) L LE WNL: (L LE grossly 3/5) POSTURE/NEURO: Posture / Neurological Head Control: Independent Posture: Forward Head;Rounded Shoulders BED MOBILITY/TRANSFERS: Bed Mobility/Transfers Bed Mobility: Supine to Sit: Minimal Assist (with log roll ) Comments: Patient tolerated sitting edge of bed with standby assist Transfer Type: Sit to Stand Transfer: Assistance Level: To/From;Bed;Moderate Assist;x2 People Transfer: Assistive Device: Hand Hold Assist Transfers: Type Of Assistance: Verbal Cues;Knees(s) Blocked;For Balance;For Strength Deficit;For Safety Considerations Other Transfer Type: Mechanical Lift (sit to stand lift ) Other Transfer: Assistance Level: From;Bed;To;Bed Side Chair Other Transfer: Type Of Assistance: For Strength Deficit;For Safety Considerations End Of Activity Status: Up in Chair;Nursing Notified;Instructed Patient to Request Assist with Mobility;Instructed Patient to Use Call Light Comments: sit to stand 3 additional times in [employer]. Used sit to stand lift to get to chair post session. BALANCE: Balance Sitting Balance: Static Sitting Balance;2 UE Support;Standby Assist Standing Balance: Static Standing Balance;Dynamic Standing Balance;2 UE support; Moderate Assist;x2 People GAIT: Gait Gait Distance: 5 feet (2 + 3 + 5) Gait: Assistance Level: Maximal Assist;x2 People (3rd person for safty considerations. ) Gait: Assistive Device: (Rawbots ) Gait: Descriptors: Pace: Slow;Decreased knee extension in stance phase LLE; Decreased stance time LLE;Loss of balance Comments: Patient ambulated x 3 trials in the [employer] with maximal assist x 2. L knee buckling throughout ambulation and patient with difficulty fully extending hips and knees. L knee blocked so patient could advance R without buckling. Poor balance with ambulation and 3rd person required to streer tram. Activity Limited By: Weakness;Complaint of Fatigue ACTIVITY/EXERCISE: Activity / Exercise Sit Edge Of Bed: 12 minutes Sit Edge Of Bed Assist: Stand By Assist Stand At Bedside : 1 minutes Stand At Bedside Assist: Moderate Assist;x2 People EDUCATION: Education Persons Educated: Patient/Family Patient Barriers To Learning: None Noted Teaching Methods: Verbal Instruction Patient Response: Verbalized Understanding Topics: Plan/Goals of PT Interventions;Mobility Progression;Safety Awareness;Up with Assist Only;Importance of Increasing Activity;Recommend Continued Therapy ASSESSMENT/PROGRESS: Assessment/Progress Impaired Mobility Due To: Decreased Strength;Pain;Impaired Balance;Safety Concerns;Decreased Activity Tolerance Assessment/Progress: Should Improve w/ Continued PT AM-PAC 6 Clicks Basic Mobility Inpatient Turning from your back to your side while in a flat bed without using bed rails : A Little Moving from lying on your back to sitting on the side of a flatbed without using bedrails : A Little Moving to and from a bed to a chair (including a wheelchair): Total Standing up from a chair using your arms (e.g. wheelchair, or bedside chair): Total To walk in hospital room: Total Climbing 3-5 steps with a railing: Total Raw Score: 10 Standardized (T-scale) Score: 28.13 Basic Mobility CMS 0-100%: 71.92 CMS G Code Modifier for Basic Mobility: CL GOALS: Goals Goal Formulation: With Patient/Family Time For Goal Achievement: 3 days, To, 5 days Pt Will Go Supine To/From Sit: w/ Stand By Assist Pt Will Transfer Bed/Chair: w/ Minimal Assist Pt Will Transfer Sit to Stand: w/ Minimal Assist Pt Will Ambulate: 31-50 Feet, w/ Moderate Assist PLAN: Plan Treatment Interventions: Mobility Training;Strengthening;Balance Activities; Coordination Training;Endurance Training;Neuromuscular Reeducation Plan Frequency: 5 Days per Week Comments: Continue use of [place] to assist patient in taking steps and facilitating weight bearing. Up to chair with sit to stand lift and nursing staff. RECOMMENDATIONS: PT Discharge Recommendations PT Discharge Recommendations: Inpatient Setting;Recommend Physical Medicine and Rehabilitation Consult to address most appropriate level of rehabilitation placement Therapist: Kati Thomas, PT Date: 02/03/2018 * Jasmyn Mauro, RN RADIATION - 02/03/2018 9:52 AM SCRIPT EDITOR Formatting of this note may be different from the original. Neurosurgery Progress Note Admission Date: 01/30/2018 LOS: 3 days Subjective: Patient seen earlier this AM, sleeping on CPAP. Objective: Awake, oriented Symmetric smile Left ptosis, inability to open eye completely No obvious facial swelling Following commands in all extremities; strength 5/5 on right, strength 4/5 on left A/P: Fidel Negro Florence is a 67 y.o. male with stroke like symptoms Hygroma Patient Active Problem List Diagnosis Date Noted Other chest pain 02/01/2018 Type 2 diabetes mellitus with other specified complication (HCC) 02/01/2018 PVC (premature ventricular contraction) 02/01/2018 Hygroma 01/31/2018 Chronic migraine 01/07/2018 Status post craniectomy 01/07/2018 Weakness of left lower extremity 09/11/2017 Abnormal gait 09/11/2017 Chronic nonsuppurative otitis media of right ear 12/11/2016 Adjustment disorder with mixed anxiety and depressed mood 10/14/2016 Atypical facial pain 01/10/2016 Skin-picking disorder 10/20/2015 Prostate cancer screening 12/14/2014 ED (erectile dysfunction) of organic origin Enlarged prostate with lower urinary tract symptoms (LUTS) Cysto (06/13/2104): (+)BPH w/ intravesical median lobe. Started Finasteride -- 06/13/2014. Hematuria, gross Hematuria w/u (March - May 2014) no evidence of malignancy. 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 Laryngopharyngeal reflux 09/08/2013 Dysphagia, pharyngoesophageal phase 09/08/2013 Acquired skull defect 09/14/2012 S/p wound infection, removal of bone flap [...] of recurrent major depressive disorder, without psychotic features ([facility]) 11/04/2011 SIRS (systemic inflammatory response syndrome) ([facility]) 11/03/2011 Respiratory failure ([facility]) 11/03/2011 Hypokalemia 07/15/2011 Pneumocephalus 07/11/2011 Post-occipital carlos hole electrode placement Groin pain, right lower quadrant 05/21/2011 S/p flakita Weakness 04/10/2011 Partial epilepsy with impairment of consciousness, intractable ([facility]) 2009 S/p left temporal lobectomy in 08/2011. Patient has been seizure free since then. Chronic otitis media 07/31/2010 Hearing loss, mixed, bilateral 07/31/2010 Ataxia 02/22/2008 Morbid obesity ([facility]) 02/22/2008 АНДРЕЙ (obstructive sleep apnea) 02/22/2008 Neuropathy Peripheral 02/10/2008 Continue current care ENT following PT/OT Discharge planning -- Rehab consult pending Prophylaxis: A)GI: PPI B) Lines: No C) Urinary Catheter: No D) Antibiotic Usage: Yes; Infection present or suspected: Otitis E) VTE: Pharmacological prophylaxis; SQ Heparin and Mechanical prophylaxis; Sequential compression device F) Restraints: Patient assessed for need for restraints. Please call [phone] with any questions. Jasmyn Mauro, RN RADIATION [id number] * Jose Torres MD - 02/02/2018 6:32 PM SCRIPT EDITOR PM&R consult service attempted to see patient today, however we were unable to assess patient due to ongoing work up. Will plan to see patient tomorrow. Please contact if there are any issues. Jose Torres MD [id number] * Kelly Abdul MD - 02/02/2018 3:57 PM SCRIPT EDITOR Ophthalmology Progress Note S: Patient was seen and examined. Per patient and his daughter, patient was seen by his eye doctor ~2-3 weeks ago due to concern for "pink eye" with mattering of eyelashes and difficulty opening the left eye. At this visit, he was diagnosed with "hole" in the retina of the left eye and advised to follow- up with retina specialist. He complains of floaters left eye that he describes as "streaks falling from the ceiling". His mild pain with EOM of the left eye and the eyelash mattering has been constant for the past few weeks, unchanged. Also has difficulty opening the left eye. He did receive Botox injection on left side for pain associated with his previous craniectomy. Most recent injection (and only his second injection) was on 01/07. No issues with previous injection. O: Near VA: CC: OD: 20/25, PH 20/20-3 OS: 20/30, PH 20/25 Pupils: 6 mm, 3+ reactive, no RAPD Tonopen: 16 OD, 13 OS CVF: full EOM: full Adnexa: WNL OD, no significant erythema or edema of lids, bilateral mattering of lashes Conjunctiva: 1+ inj (blanched with phenylephrine OU), chalasis OU Cornea: Clear OU, no fluorescein staining OU A/C: Deep/Grossly Clear OU Iris: Round/Flat OU Lens: PCIOL OU DILATED FUNDUS EXAM: (Dilated with 2.5% Phenylephrine and 1% Tropicamide OU. Effects last 4-6 hours ) Optic Nerve: 0.4 p/f/s OU Macula: Attached and flat OU Vessels: WNL OU Vitreous: No stranding or heme OU. Floaters OU. Periphery: No breaks or tears OU Labs/Imaging: MRI head/orbit/face 01/31/18: 1. Prior left pterional craniotomy and partial [...] neuritis. 5. No evidence of acute infarct. A/P: 1. Blepharitis, both eyes - with mattering of lashes OU - injection blanched with phenylephrine OU - recommend warm compresses and lid scrubs 2. Macular hole, left eye - by history, unable to see at bedside exam - explains limited visual acuity OS, although patient pinholed to 20/25 OS today 3. Floaters, both eyes - monitor Recommendations: (ordered) - warm compresses five times daily, both eyes - erythromycin ointment QHS, both eyes Patient seen & discussed with Dr. Abdul, Attending Physician. We will sign off. If you have any questions or if patient's ocular examination changes, do not hesitate to contact us. Ginny Covington MD Ophthalmology PGY-2 Pager: [phone] [facility] [address] [place] [address] I personally examined and managed this patient with the resident and agree with their assessment and plan. See below for any addendums. Pt told to keep appointment he has scheduled with retina specialist. No evidence of papilledema or meningitis on ophthalmic exam. Type II DM - no evidence of diabetic retinopathy or macular edema Kelly Abdul MD Department of Ophthalmology * Jess Hugo - 02/02/2018 3:19 PM SCRIPT EDITOR SPEECH-LANGUAGE PATHOLOGY DAILY TREATMENT NOTE Patient seen 1x this date. Documentation reflects all daily treatment sessions. SUMMARY OF THERAPY SESSION: F/u this date for ongoing dysphagia management. Pt reports feeling much better this date in terms of dysphagia. Vocal quality additionally noted to be improved and nearing baseline. No overt s/s of aspiration appreciated with consistencies trialed. Normal oropharyngeal swallow appreciated. Will continue to follow, please see details below. RECOMMENDATIONS Regular solids w/ thin liquids: strategies: small bites/sips, slow rate -If s/s of aspiration appreciated, withhold PO intake and notify INSULATION INSTALLER Medications PO as tolerated Excellent oral care INSULATION INSTALLER department will continue to follow to ensure diet tolerance Goal : Pt will tolerate full liquid diet with use of compensatory techniques and no overt s/s of aspiration. Met Comment: No reported concerns with diet this date. Discharge this goal as met NEW GOAL: Pt will tolerate diet of regular solids w/ thin liquids with no overt s/s of aspiration. Goal : Pt will participate in ongoing evaluation of dysphagia. Met Comment: Trials of thin liquids (via tsp & cup drink), pureed solids, and regular solids provided. Oral stage WFL. Pharyngeal stage appears WFL. No overt s/s of aspiration appreciated with consistencies trialed. Discharge this goal as met PLAN / RECOMMENDATIONS: Continue treatment 1-3x/week Therapist: Jess Hugo M.A. CF-INSULATION INSTALLER Pager: [phone] Weekend Acute Pager: [phone] Date: 02/02/2018 * Caroline Tang - 02/02/2018 2:32 PM SCRIPT EDITOR Formatting of this note may be different from the original. OCCUPATIONAL THERAPY PROGRESS NOTE Patient Name: Fidel Henriquez Room[facility]Bed: [id number] Admitting Diagnosis: stroke like symptoms Hygroma Past Medical History: Diagnosis Date Acute myocardial infarction, unspecified site 1979 Arthritis Attempted suicide ([facility]) 2004 Overdose CAD (coronary artery disease) Chronic mastoiditis of left side Chronic otitis media ED (erectile dysfunction) Enlarged prostate Epilepsy ([facility]) Headache(784.0) Headaches Hypertension Infection bone flap Morbid obesity (HCC) Neuropathy, lower extremity Bilateral Non-melanoma skin cancer АНДРЕЙ (obstructive sleep apnea) uses C-PAP Pruritus - disorder bilateral arms, shoulders. PVC (premature ventricular contraction) 02/01/2018 Seizure ([facility]) Type 2 diabetes mellitus with other specified complication ([facility]) 02/01/2018 Weakness of left side of body x3 years following seizures. Wound infection chronic Mobility Progressive Mobility Level: Stand Level of Assistance: Assist X2 Assistive Device: Hand Held (Bilateral knees blocked ) Time Tolerated: 11-30 minutes Activity Limited By: Weakness Subjective Pertinent Dx per Physician: Fidel Henriquez is a 67 y.o. male known to Dr. Frias with bilateral otitis admitted by neurosurgery for worsening left sided facial swelling with weakness. He reports 2 weeks of left ear drainage with progressive left facial swelling. Hedid not have fevers at home. Drainage is getting worse and he reports worsening of hearing out of left ear. He denies facial nerve changes or vertigo. Precautions: Standard;Falls Pain / Complaints: Patient agrees to participate in therapy Comments: Pt in bed upon therapist arrival, agreeable to participate in co-tx session. Patient positioned for comfort in chair mode with needs met and precautions in place at end of session. L facial swelling persisting today. Objective Psychosocial Status: Willing and Cooperative to Participate Persons Present: Daughter;PT;RN (briefly); INSULATION INSTALLER (briefly) Home Living Type of Home: Apartment (independent living) Home Layout: One Level;Performs ADL'S on One Level Bathroom Shower / Tub: Walk-in Shower Home Equipment: Cane Prior Function Level Of [place]: Independent with ADLs and functional transfers;Needed assistance with homemaking Lives With: Alone Receives Help From: Family;Patient Sewing Pattern Layout Technician Homemaking Assist: Total Assist Vocational: Retired Other Function Comments: Pt was independent with basic ADLs and functional transfers. Daughter reports that she and another paid caregiver assist with homemaking tasks. Daughter reports patient should utilize a cane, but doesn't when he is on his own. Vision Current Vision: Wears Glasses Only for Reading ADL's Where Assessed: Edge of Bed Eating Assist: Stand By Assist Eating Deficits: Setup (Take pills-- L UE/ Drink from water mug at EOB-- R UE hook care transport nurse) LE Dressing Assist: Moderate Assist LE Dressing Deficits: Don/Doff L Sock (Edge of bed) Functional Transfer Assist: Moderate Assist (X2) Functional Transfer Deficits: Verbal Cueing;Supervision/Safety;Increased Time to Complete Comment: Pt transferred to edge of bed (to L side) with minimal assist, head of bed raised, and increased time. Patient required moderate assist X2 for sit to stand X2 trials; bilateral knees blocked d/t buckling in LEs. Patient attempted side steps to EOB, however, deferred additional mobility d/t decreased balance in static standing (B UEs supported by therapists). Patient demonstrated decreased trunk balance during attempt to lean forward to adjust sock at edge of bed. Moderate assist for socks; increased independence with socks in wide- sitting with L foot on bed. Activity Tolerance Endurance: 3/5 Tolerates 25-30 Minutes Exercise w/Multiple Rests Sitting Balance: 2/5 Supports Self Independently w/Both UEs Comment: Pt requested to stay sitting at edge of bed at end of session, however , d/t impaired dynamic trunk balance, recommend supervised EOB sitting only for patient safety. ' Cognition Overall Cognitive Status: WFL to Adequately Complete Self Care Tasks Safely Social Interaction: Increased Time to Adjust Attention: Awake/Alert Comments: Improved speech. Flat affect. Follows commands and converses with therapists minimally. Initiating some conversation. UE AROM Coordination: Adequate to Complete ADLs;Mild Delay (L UE) Sensory Proprioception: L UE Decreased/Impaired (As evidenced by impaired finger/nose X4 /4 trials with vision occluded) Comment: Pt reports decreased sensation L UE. Intact to light touch during formal assessment. Education Persons Educated: Patient/Family Teaching Methods: Verbal Instruction Patient Response: More Instruction Required Topics: Role of OT, Goals for Therapy;ADL Compensatory Techniques Goal Formulation: With Patient/Family AM-PAC 6 Clicks Daily Activity Inpatient Putting on and taking off regular lower body clothes?: A Lot Bathing (Including washing, rinsing, drying): A Lot Toileting, which includes using toilet, bedpan, or urinal: A Lot Putting on and taking off regular upper body clothing: A Lot Taking care of personal grooming such as brushing teeth: A Little Eating meals?: A Little Daily Activity Raw Score: 14 Standardized (t-scale) score: 33.39 CMS 0-100% Score: 59.67 CMS G Code Modifier: CK Plan Treatment Interventions: ADL Retraining;Functional Transfer Training;Endurance Training;Patient/Family Training;Compensatory Technique Education OT Frequency: 5x/week Plan for next session: Assist X2 for BSC transfer; Standing frame for grooming; EOB ADLs ADL Goals Patient Will Perform LE Dressing: In Chair, w/ Minimum Assist Patient Will Perform Toileting: w/ Moderate Assist Functional Transfer Goals Pt Will Perform All Functional Transfers: Moderate Assist OT Discharge Recommendations OT Discharge Recommendations: Inpatient Setting, Recommend PM&R Consult to address most appropriate level of rehabilitation placement ([phone]). Equipment Recommendations: Shower Chair Recommend ongoing assistance for: In and out of house, Ambulation, Safety concerns, Dressing, Bathing, Toileting, Bed mobility, Transfers Therapist: RYNE Buckley/Radha [id number] Date: 02/02/2018 * Kati Thomas, PT - 02/02/2018 2:32 PM SCRIPT EDITOR PHYSICAL THERAPY PROGRESS NOTE MOBILITY: Mobility Progressive Mobility Level: Stand Level of Assistance: Assist X2 Assistive Device: Hand Held (Bilateral knees blocked ) Time Tolerated: 11-30 minutes Activity Limited By: Weakness SUBJECTIVE: Subjective Significant hospital events: 67 y.o. 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 who was transferred from an outside hospital to the neuro ICU for slurred speech and facial asymmetry. He is being evaluated for mastoiditis and stroke. He is also complaining of chest pain which is prompting urgent cardiology consult. Negative for stroke 01/31 Mental / Cognitive Status: Oriented;Cooperative;Follows Commands Persons Present: Daughter;OT Pain: Patient complains of pain Pain Location: Left;Face Pain Description: Aching Pain Interventions: Patient agrees to participate in therapy;Patient assisted into position of comfort;Patient pre-medicated Ambulation Assist: Independent Mobility in Community with Device Patient Owned Equipment: Single Point Cane Home Situation: Lives Alone Type of Home: Apartment (independent living) Entry Stairs: No Stairs In-Home Stairs: No Stairs Comments: Per patient's daughter, patient lives in a retired living community. Patient's daughter and additional medication care manager come to house to assist with IADLs and supervision for safety during ADLs. Patient has history of falls. Per daughter, patient appears to have difficulty performing ADLs.. Per daughters reports, patient had bilateral leg braces that he wore starting in 2011. Did not need them anymore in the past year. ROM: ROM UE ROM: WFL LE ROM: WFL STRENGTH: Strength Overall Strength: Generalized Weakness POSTURE/NEURO: Posture / Neurological Head Control: Independent Posture: Forward Head;Rounded Shoulders BED MOBILITY/TRANSFERS: Bed Mobility/Transfers Bed Mobility: Supine to Sit: Minimal Assist;x2 People;Assist with B LE;Assist with Trunk Bed Mobility: Sit to Supine: Minimal Assist;x2 People;Assist with B LE;Assist with Trunk Transfer Type: Sit to Stand Transfer: Assistance Level: To/From;Bed;Moderate Assist;x2 People Transfer: Assistive Device: Hand Hold Assist Transfers: Type Of Assistance: Verbal Cues;Knees(s) Blocked;For Balance;For Strength Deficit;For Safety Considerations End Of Activity Status: In Bed;Nursing Notified;Instructed Patient to Use Call Light;Instructed Patient to Request Assist with Mobility (bed alarm on) Comments: Patient required moderate assist x 2 for sit to stand transfers this date. Bilateral knee buckling noted in standing. L greater than R. Impaired balance and proprioception in stanidng and required moderate assist x 2 to maintain standing balance. BALANCE: Balance Sitting Balance: Static Sitting Balance;2 UE Support;Standby Assist;Minimal Assist Standing Balance: Static Standing Balance;Dynamic Standing Balance;2 UE support; Maximal Assist;x2 People GAIT: Gait Comments: Patient stood and took two steps along bedside with maximal assist x 2. Patient wiuth knees buckling upon standing. Patient retropulsive at times and poor trunk control Activity Limited By: Weakness;Complaint of Fatigue ACTIVITY/EXERCISE: Activity / Exercise Sit Edge Of Bed: 10 minutes Sit Edge Of Bed Assist: Stand By Assist;Minimal Assist (minimal initially, progressed to standby ) Stand At Bedside : 1 minutes Stand At Bedside Assist: Moderate Assist;x2 People EDUCATION: Education Persons Educated: Patient/Family Patient Barriers To Learning: None Noted Teaching Methods: Verbal Instruction Patient Response: Verbalized Understanding Topics: Plan/Goals of PT Interventions;Mobility Progression;Safety Awareness;Up with Assist Only;Importance of Increasing Activity;Recommend Continued Therapy ASSESSMENT/PROGRESS: Assessment/Progress Impaired Mobility Due To: Decreased Strength;Pain;Impaired Balance;Safety Concerns;Decreased Activity Tolerance Assessment/Progress: Should Improve w/ Continued PT AM-PAC 6 Clicks Basic Mobility Inpatient Turning from your back to your side while in a flat bed without using bed rails : A Little Moving from lying on your back to sitting on the side of a flatbed without using bedrails : A Lot Moving to and from a bed to a chair (including a wheelchair): Total Standing up from a chair using your arms (e.g. wheelchair, or bedside chair): Total To walk in hospital room: Total Climbing 3-5 steps with a railing: Total Raw Score: 9 Standardized (T-scale) Score: 25.8 Basic Mobility CMS 0-100%: 77.59 CMS G Code Modifier for Basic Mobility: CL GOALS: Goals Goal Formulation: With Patient/Family Time For Goal Achievement: 3 days, To, 5 days Pt Will Go Supine To/From Sit: w/ Stand By Assist Pt Will Transfer Bed/Chair: w/ Minimal Assist Pt Will Transfer Sit to Stand: w/ Minimal Assist Pt Will Ambulate: 31-50 Feet, w/ Moderate Assist PLAN: Plan Treatment Interventions: Mobility Training;Strengthening;Balance Activities; Coordination Training;Endurance Training;Neuromuscular Reeducation Plan Frequency: 5 Days per Week Comments: Trial sit to stand lift for transfers with nursing. Trial gait in riftan tram vs. vector next therapy session. RECOMMENDATIONS: PT Discharge Recommendations PT Discharge Recommendations: Inpatient Setting;Recommend Physical Medicine and Rehabilitation Consult to address most appropriate level of rehabilitation placement Therapist: Kati Thomas, PT Date: 02/02/2018 * Siddharth Ponce MD - 02/02/2018 2:30 PM SCRIPT EDITOR Fidel Henriquez originally presented with strokelike symptoms. His facial swelling is improved and he still complaining of some left eye discomfort. We appreciate the input from ophthalmology. Patient's neurologic exam and CT of his head are stable. We have no plans for neural surgical intervention at this time. Attempted LP over the weekend was not successful. We will try to have this done in IR today. ENT will continue to follow patient for his otitis. * Elise Gutierrez RN - 02/02/2018 1:32 PM SCRIPT EDITOR Another attempt was made to contact the primary RN to give a report. There was no answer. Pt transport back to room via transporter, in stable condition. * Elise Gutierrez RN - 02/02/2018 1:03 PM SCRIPT EDITOR Attempted to reach primary RN twice and then asked for charge weigher, with no success. Therefore unable to give report/update following IR procedure. * Kati Thomas, PT - 02/02/2018 11:29 AM SCRIPT EDITOR PHYSICAL THERAPY NOTE Attempted to see patient for Physical Therapy. Patient off the unit to IR for Lumbar puncture. Will follow up and treat patient as able and indicated. Therapist: Kati Thomas, PT Date: 02/02/2018 * Minerva Guevara RN - 02/02/2018 10:24 AM SCRIPT EDITOR Notified SENIOR STATISTICAL PROGRAMMER pt pulse in the 40's and in the past sometimes down to 30's. No new orders at this time. Will continue to monitor. * Minerva Mason APRN - 02/02/2018 9:49 AM SCRIPT EDITOR Formatting of this note may be different from the original. Neurosurgery Progress Note Admission Date: 01/30/2018 LOS: 2 days Subjective: Patient seen earlier this AM, sleeping on CPAP. No new concerns, continued left eye discomfort. Improved facial swelling. Objective: Awake, oriented x4 Symmetric smile Left ptosis, inability to open eye completely No obvious facial swelling Pupils equal, reactive Strength 5/5 on right Strength 4/5 on left A/P: Fidel Henriquez is a 67 y.o. male with stroke like symptoms Hygroma Patient Active Problem List Diagnosis Date Noted Other chest pain 02/01/2018 Type 2 diabetes mellitus with other specified complication (HCC) 02/01/2018 PVC (premature ventricular contraction) 02/01/2018 Hygroma 01/31/2018 Chronic migraine 01/07/2018 Status post craniectomy 01/07/2018 Weakness of left lower extremity 09/11/2017 Abnormal gait 09/11/2017 Chronic nonsuppurative otitis media of right ear 12/11/2016 Adjustment disorder with mixed anxiety and depressed mood 10/14/2016 Atypical facial pain 01/10/2016 Skin-picking disorder 10/20/2015 Prostate cancer screening 12/14/2014 ED (erectile dysfunction) of organic origin Enlarged prostate with lower urinary tract symptoms (LUTS) Cysto (06/13/2104): (+)BPH w/ intravesical median lobe. Started Finasteride -- 06/13/2014. Hematuria, gross Hematuria w/u (March - May 2014) no evidence of malignancy. 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 Laryngopharyngeal reflux 09/08/2013 Dysphagia, pharyngoesophageal phase 09/08/2013 Acquired skull defect 09/14/2012 S/p wound infection, removal of bone flap [...] of recurrent major depressive disorder, without psychotic features ([facility]) 11/04/2011 SIRS (systemic inflammatory response syndrome) ([facility]) 11/03/2011 Respiratory failure ([facility]) 11/03/2011 Hypokalemia 07/15/2011 Pneumocephalus 07/11/2011 Post-occipital carlos hole electrode placement Groin pain, right lower quadrant 05/21/2011 S/p flakita Weakness 04/10/2011 Partial epilepsy with impairment of consciousness, intractable ([facility]) 2009 S/p left temporal lobectomy in 08/2011. Patient has been seizure free since then. Chronic otitis media 07/31/2010 Hearing loss, mixed, bilateral 07/31/2010 Ataxia 02/22/2008 Morbid obesity ([facility]) 02/22/2008 АНДРЕЙ (obstructive sleep apnea) 02/22/2008 Neuropathy Peripheral 02/10/2008 Floor status Cardiology- for atypical chest pain, ECHO EF 55%, anterior septal hypokinesis, Troponins negative x3; follow up outpatient with cardiology at , no further recommendations. Signed off. ENT following for chronic otitis/mastoiditis - Floxin drops bilateral, consider Rocephin x5 days, started 01/31 Ophtho following for periorbital swelling - no obvious abnormalities, artificial tears QID, potentially steroids but hold off for now Planning for LP in IR today Hold SQ heparin for procedure PT/OT - recommending inpatient Rehab consulted Prophylaxis: A)GI: PPI B) Lines: No C) Urinary Catheter: No D) Antibiotic Usage: Yes; Infection present or suspected: Otitis E) VTE: Mechanical prophylaxis; Sequential compression device; HSQ held for procedure F) Restraints: Patient assessed for need for restraints. Please call [phone] with any questions. Minerva Mason APRN * Andie Maki, DARSHAN - 02/02/2018 9:32 AM SCRIPT EDITOR Patient in isolation for possible meningitis. For viral or fungal meningitis, no isolation is required. For known or suspected bacterial meningitis, use droplet isolation until patient has been on effective antibiotic therapy for 24 hours. Please contact Infection Prevention at [phone] for questions. Thank you. * Telma Penaloza MD - 02/01/2018 10:02 PM SCRIPT EDITOR Ophthalmology Progress Note - PGY-3 S: Patient was seen and examined. Thinks his vision might be a little better, but also thinks that the left eye tends to be more open & see better at the beginning of the day. Still c/o mild pain w eye movements OS. O: Near VA: CC: OD: 20/30-2, PH 20/25-2 OS: 20/30-1, PH 20/30+1 Pupils: 6 mm, 3+ reactive, no RAPD Tonopen: 13 OD, 11 OS Subjective white light desaturation OS Adnexa: WNL OD, mild tenderness to palpation of periorbital tissue OS but no erythema or obvious edema/swelling periorbitally on left side Conjunctiva: White/Quiet OU, no fluorescein staining OU Cornea: Clear OU, no fluorescein staining OU A/C: Deep/Grossly Clear OU Iris: Round/Flat OU Lens: PCIOL w open capsule OU Labs/Imaging: MRI head/orbit/face 01/31/18: 1. Prior left pterional craniotomy and partial [...] neuritis. 5. No evidence of acute infarct. A/P: 1. Concern for preseptal cellulitis and pupil abnormality - no pupil abnormalities seen on exam, no obvious preseptal or orbital cellulitis based on exam, no obvious soft tissue cellulitis on imaging as above 2. Decreased vision & pain with eye movements, left eye - no obvious etiology to explain these symptoms, differential includes optic neuritis and orbital pseudotumor, as well as orbital cellulitis although less likely - vision improved in OS today, although still c/o pain with eye movements OS - may need steroids but will hold off on recommending for now, cont artificial tears QID for now Attempted to see pt today with staff but pt out of room and unavailable, will attempt again tomorrow. If you have any questions, do not hesitate to contact us. Jose Hickman MD Department of Ophthalmology PGY-3 [facility] [address] [place] [address] Patient out of room, I did not see or examine patient on this encounter. * Mayra Patel RN - 02/01/2018 3:45 PM SCRIPT EDITOR Patient arrived on unit via wheelchair accompanied by RN. Patient transferred to the bed with assistance. Assessment completed, refer to flowsheet for details. Orders released, reviewed, and implemented as appropriate. Oriented to surroundings, call light within reach. Plan of care reviewed. Will continue to monitor and assess. * Giacomo Pandey RN - 02/01/2018 3:22 PM SCRIPT EDITOR Report given to RN on CA7 and she expressed no questions. Pts daughter notified of the patients transfer. * Giacomo Pandey RN - 02/01/2018 11:55 AM SCRIPT EDITOR 1155- During assessment patient expressed a change in LUE, LLE weakness and sensation change. Patiend did demonstrate on exam a slight decrease in strength in LUE and LLE but was able to follow commands. Patient noted a mild sensory change in the LLE but states "he has peripheral neuropathy".Patient expressed no additional concerns at this time and is otherwise stable. (see Doc- Flowsheets for VS) 1156- This RN contacted Dr Wise with Neuro-Surg. Orders to continue to monitor the patient and notify of any acute changes in exam. * Elysia Cartagena MD - 02/01/2018 9:51 AM SCRIPT EDITOR Formatting of this note may be different from the original. Cardiology Progress Note Admission Date: 01/30/2018 Today's Date: 02/01/2018 LOS: 1 day Assessment & Plan Fidel Henriquez is a 67 y.o. patient with the following problems: Active Problems: Morbid obesity (HCC) АНДРЕЙ (obstructive sleep apnea) HTN (hypertension) Hygroma Other chest pain Type 2 diabetes mellitus with other specified complication (HCC) PVC (premature ventricular contraction) Assessment/Plan: Fidel Henriquez is a 67 y.o. 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 who was transferred from an outside hospital to the neuro ICU for slurred speech and facial asymmetry. He is being evaluated for mastoiditis and stroke. He is also complaining of chest pain which is prompting urgent cardiology consult. 1. Chest pain -CP atypical but certainly has risk factors -Pain has been constant over the last 2-3 days. Reproducible with palpation -Serial troponins negative -Echo EF 50-55%, mild concentric LVH, no pericardial effusion, mild AI -Pt reports history of "small" ID, unable to explain details, Denies history of cardiac cath or PCI. Uncertain if he has had a stress test in the past 2. PVCs -ASPHALT ROLLER OPERATOR Atenolol 100mg daily 3. Hypertension -ASPHALT ROLLER OPERATOR Atenolol 100mg daily, Norvasc 5mg, Lisinopril 20mg daily, Torsemide 20mg BID 4. DM2 -No ASPHALT ROLLER OPERATOR statin 5. Obesity PLAN: -Serial troponins negative and echo WNL. Chest pain atypical and reproducible with palpation. -Lipitor 20 mg daily added to his regimen given history of DM -If shortness of breath persists at discharge, would consider outpatient stress testing for ischemic eval -Pt would like to follow up with cardiology at -No further CV recommendations at this time. Will sign off. Please call with further questions or concerns. Continue current medical therapy and supportive care. Pt seen and d/w Dr. Mitzi Mckinley, RN RADIATION ([id number]) I personally took the history, examined the patient and formulated the treatment plan. I discussed the above with the CV[facility] team. Chest pain is atypical. I think his dyspnea is related to deconditioning. If dyspnea persists, can consider outpt stress test, but not indicated at this point. His chest pain is noncardiac and reproducible on exam. Subjective Chief complaint: Chest pain HPI: C/o persistent left chest wall pain, reproducible with palpation. Has been constant over the last 2 days. Denies associated symptoms. Denies palpitations. States he has had exertional dyspnea at home for quite some time. Denies orthopnea or PND. Denies LE edema. Medications Scheduled Meds: allopurinol (ZYLOPRIM) tablet 100 mg 100 mg Oral QDAY amLODIPine (NORVASC) tablet 5 mg 5 mg Oral QDAY aspirin tablet 325 mg 325 mg Oral QDAY atenolol (TENORMIN) tablet 100 mg 100 mg Oral QDAY atorvastatin (LIPITOR) tablet 20 mg 20 mg Oral QHS baclofen (LIORESAL) tablet 10 mg 10 mg Oral TID [START ON 02/02/2018] bisacodyl (DULCOLAX) rectal suppository 10 mg 10 mg Rectal QDAY bumetanide (BUMEX) tablet 1 mg 1 mg Oral BID(9-17) carboxymethylcellulose (REFRESH PLUS) 0.5 % ophthalmic solution 1 drop 1 drop Both Eyes QID cefTRIAXone (ROCEPHIN) IVP 1 g 1 g Intravenous Q24H* docusate (COLACE) capsule 100 mg 100 mg Oral BID finasteride (PROSCAR) tablet 5 mg 5 mg Oral QDAY gabapentin (NEURONTIN) capsule 800 mg 800 mg Oral Q8H heparin (porcine) PF syringe 5,000 Units 5,000 Units Subcutaneous Q8H insulin aspart U-100 (NOVOLOG FLEXPEN) injection PEN 0-14 Units 0-14 Units Subcutaneous ACHS lidocaine (LIDODERM) 5 % topical patch 1 patch 1 patch Topical Q24H* lisinopril (PRINIVIL; ZESTRIL) tablet 20 mg 20 mg Oral QDAY loratadine (CLARITIN) tablet 10 mg 10 mg Oral QDAY milk of magnesia (CONC) oral suspension 10 mL 10 mL Oral QDAY mirtazapine (REMERON) tablet 45 mg 45 mg Oral QHS ofloxacin (FLOXIN) 0.3 % (ophthalmic for otic use) solution 4 drop 4 drop Both Ears BID pantoprazole DR (PROTONIX) tablet 40 mg 40 mg Oral QDAY(21) phenytoin SR (DILANTIN) capsule 300 mg 300 mg Oral QDAY senna/docusate (SENOKOT-S) tablet 1 tablet 1 tablet Oral BID sertraline (ZOLOFT) tablet 300 mg 300 mg Oral QDAY Continuous Infusions: PRN and Respiratory Meds:acetaminophen Q4H PRN, docusate BID PRN, fentaNYL citrate PF Q1H PRN, hydrALAZINE Q6H PRN, HYDROcodone/acetaminophen Q4H PRN, labetalol (NORMODYNE; TRANDATE) injection Q15 MIN PRN, nitroglycerin Q5 MIN PRN , ondansetron (ZOFRAN) IV Q6H PRN Objective Vital Signs: Last Filed Vital Signs: 24 Hour Range BP: 117/69 (02/01 900) Temp: 36.8 C (98.2 F) (02/02 800) Pulse: 59 (02/01 0900) Respirations: 14 PER MINUTE (02/01 900) SpO2: 92 % (02/01 900) O2 Delivery: None (Room Air) (02/01 09) SpO2 Pulse: 57 (02/01 09) Height: 185.4 cm (6' 1") (01/31 1146) BP: (98-158)/(17-113) Temp: [36.4 C (97.6 F)-37.1 C (98.8 F)] Pulse: [52-69] Respirations: [10 PER MINUTE-26 PER MINUTE] SpO2: [90 %-98 %] O2 Delivery: None (Room Air) Intensity Pain Scale 0-10 (Pain 1): 3 (01/31/18 2200) Vitals: 01/31/18 0500 01/31/18 1146 02/01/18 0500 Weight: 130.2 kg (287 lb 0.6 oz) 130.2 kg (287 lb 0.6 oz) 129.5 kg (285 lb 7.9 oz) Intake/Output Summary: (Last 24 hours) Intake/Output Summary (Last 24 hours) at 02/01/18 1103 Last data filed at 02/01/18 0900 Gross per 24 hour Intake 400 ml Output 1835 ml Net -1435 ml Body mass index is 37.67 kg/m. Physical Exam GEN: no acute distress HEENT: nontraumatic, EOM-intact. Left orbital edema CHEST: clear to auscultation bilaterally ABD: soft, nontender, BS +, obese CV: Reg rhythm, nml rate; nml S1 & S2, no S3 or S4; no rub; no murmurs EXT: trace edema, 2+ distal pulses Lab Review Results for orders placed or performed during the hospital encounter of (from the past 24 hour(s)) POTASSIUM Collection Time: 01/31/18 4:12 PM Result Value Ref Range Potassium 4.8 3.5 - 5.1 MMOL/L POC GLUCOSE Collection Time: 01/31/18 4:22 PM Result Value Ref Range Glucose, POC 139 (H) 70 - 100 MG/DL POC GLUCOSE Collection Time: 01/31/18 5:39 PM Result Value Ref Range Glucose, POC 166 (H) 70 - 100 MG/DL POC GLUCOSE Collection Time: 01/31/18 9:31 PM Result Value Ref Range Glucose, POC 220 (H) 70 - 100 MG/DL BASIC METABOLIC PANEL Collection Time: 02/01/18 4:40 AM Result Value Ref Range Sodium 139 137 - 147 MMOL/L Potassium 4.5 3.5 - 5.1 MMOL/L Chloride 112 (H) 98 - 110 MMOL/L CO2 18 (L) 21 - 30 MMOL/L Anion Gap 9 3 - 12 Glucose 180 (H) 70 - 100 MG/DL Blood Urea Nitrogen 22 7 - 25 MG/DL Creatinine 0.87 0.4 - 1.24 MG/DL Calcium 8.2 (L) 8.5 - 10.6 MG/DL eGFR Non >60 >60 mL/min eGFR >60 >60 mL/min CBC AND DIFF Collection Time: 02/01/18 4:40 AM Result Value Ref Range White Blood Cells 10.6 4.5 - 11.0 K/UL RBC 4.05 (L) 4.4 - 5.5 M/UL Hemoglobin 12.0 (L) 13.5 - 16.5 GM/DL Hematocrit 36.6 (L) 40 - 50 % MCV 90.5 80 - 100 FL MCH 29.8 26 - 34 PG MCHC 32.9 32.0 - 36.0 G/DL RDW 15.3 (H) 11 - 15 % Platelet Count 144 (L) 150 - 400 K/UL MPV 7.3 7 - 11 FL Neutrophils 86 (H) 41 - 77 % Lymphocytes 12 (L) 24 - 44 % Monocytes 2 (L) 4 - 12 % Eosinophils 0 0 - 5 % Basophils 0 0 - 2 % Absolute Neutrophil Count 9.10 (H) 1.8 - 7.0 K/UL Absolute Lymph Count 1.20 1.0 - 4.8 K/UL Absolute Monocyte Count 0.20 0 - 0.80 K/UL Absolute Eosinophil Count 0.00 0 - 0.45 K/UL Absolute Basophil Count 0.00 0 - 0.20 K/UL PHOSPHORUS Collection Time: 02/01/18 4:40 AM Result Value Ref Range Phosphorus 2.9 2.0 - 4.0 MG/DL MAGNESIUM Collection Time: 02/01/18 4:40 AM Result Value Ref Range Magnesium 2.2 1.6 - 2.6 mg/dL IONIZED CALCIUM Collection Time: 02/01/18 4:40 AM Result Value Ref Range Ionized Calcium 1.01 1.0 - 1.3 MMOL/L PHENYTOIN, TOTAL (DILANTIN) Collection Time: 02/01/18 4:40 AM Result Value Ref Range Phenytoin 2.7 (L) 10.0 - 20.0 MCG/ML ALBUMIN Collection Time: 02/01/18 4:40 AM Result Value Ref Range Albumin 3.3 (L) 3.5 - 5.0 G/DL POC GLUCOSE Collection Time: 02/01/18 4:40 AM Result Value Ref Range Glucose, POC 177 (H) 70 - 100 MG/DL POC GLUCOSE Collection Time: 02/01/18 8:58 AM Result Value Ref Range Glucose, POC 174 (H) 70 - 100 MG/DL Tele: SB-SR with frequent PVC's Echo: 01/31/18 LVEF=50-55%, Poor Visualization. Mid To Distal Anteroseptal Hypokinesis: See Contrast Views Apical Series #70 And #74. Mild Concentric LVH Mild Left Atrial Dilatation Mild Aortic Valve Regurgitation No Pericardial Effusion Mild RV Dilatation TAPSE=1.7cm Carrie Mckinley APRN ([id number]) * Melisa Yoo MD - 02/01/2018 9:29 AM SCRIPT EDITOR Formatting of this note may be different from the original. Neurosurgery Progress Note Admission Date: 01/30/2018 LOS: 1 day Subjective: No acute events noted, feels facial pain and swelling is improved Objective: Awake, oriented x4 Symmetric smile Left ptosis, inability to open eye completely No obvious facial swelling Pupils equal, reactive Strength 5/5 on right Strength 4/5 on left A/P: Fidel Henriquez is a 67 y.o. male with stroke like symptoms Hygroma Patient Active Problem List Diagnosis Date Noted Hygroma 01/31/2018 Chronic migraine 01/07/2018 Status post craniectomy 01/07/2018 Weakness of left lower extremity 09/11/2017 Abnormal gait 09/11/2017 Chronic nonsuppurative otitis media of right ear 12/11/2016 Adjustment disorder with mixed anxiety and depressed mood 10/14/2016 Atypical facial pain 01/10/2016 Skin-picking disorder 10/20/2015 Prostate cancer screening 12/14/2014 ED (erectile dysfunction) of organic origin Enlarged prostate with lower urinary tract symptoms (LUTS) Cysto (06/13/2104): (+)BPH w/ intravesical median lobe. Started Finasteride -- 06/13/2014. Hematuria, gross Hematuria w/u (March - May 2014) no evidence of malignancy. 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 Laryngopharyngeal reflux 09/08/2013 Dysphagia, pharyngoesophageal phase 09/08/2013 Acquired skull defect 09/14/2012 S/p wound infection, removal of bone flap [...] of recurrent major depressive disorder, without psychotic features ([facility]) 11/04/2011 SIRS (systemic inflammatory response syndrome) ([facility]) 11/03/2011 Respiratory failure ([facility]) 11/03/2011 Hypokalemia 07/15/2011 Pneumocephalus 07/11/2011 Post-occipital carlos hole electrode placement Groin pain, right lower quadrant 05/21/2011 S/p flakita Weakness 04/10/2011 Partial epilepsy with impairment of consciousness, intractable ([facility]) 2009 S/p left temporal lobectomy in 08/2011. Patient has been seizure free since then. Chronic otitis media 07/31/2010 Hearing loss, mixed, bilateral 07/31/2010 Ataxia 02/22/2008 Morbid obesity (HCC) 02/22/2008 АНДРЕЙ (obstructive sleep apnea) 02/22/2008 Neuropathy Peripheral 02/10/2008 Floor status Cards following for chest pain, ECHO EF 55%, anterior septal hypokinesis, Troponins negative x3 ENT following for chronic otitis/mastoiditis - Floxin drops bilateral, consider Rocephin x5 days, started 3/3 Ophtho following for periorbital swelling - no obvious abnormalities, artificial tears QID, potentially steroids following examination Planning for LP in IR on Friday Hold SQ heparin at midnight PT/OT - inpatient Rehab consulted Prophylaxis: A)GI: PPI B) Lines: No C) Urinary Catheter: No D) Antibiotic Usage: Yes; Infection present or suspected: Otitis E) VTE: Pharmacological prophylaxis; SQ Heparin and Mechanical prophylaxis; Sequential compression device F) Restraints: Patient assessed for need for restraints. Please call [phone] with any questions. Melisa Yoo MD * Giacomo Pandey RN - 02/01/2018 9:23 AM SCRIPT EDITOR 0900- Patient's voice appears to be improved in tone and strength. Patient expresses that he feels his voice and breathing has improved overnight. This RN paged Speech to have them reevaluate the patients current diet recomendations. * Malathi Mckenna APRN - 02/01/2018 6:25 AM SCRIPT EDITOR Formatting of this note may be different from the original. Neuro Critical Care Progress Note Fidel Henriquez Admission Date: 01/30/2018 LOS: 1 day DNAR-Limited Intervention ASSESSMENT/PLAN Patient Active Problem List Diagnosis Date Noted Hygroma 01/31/2018 Chronic migraine 01/07/2018 Status post craniectomy 01/07/2018 Weakness of left lower extremity 09/11/2017 Abnormal gait 09/11/2017 Chronic nonsuppurative otitis media of right ear 12/11/2016 Adjustment disorder with mixed anxiety and depressed mood 10/14/2016 Atypical facial pain 01/10/2016 Skin-picking disorder 10/20/2015 Prostate cancer screening 12/14/2014 ED (erectile dysfunction) of organic origin Enlarged prostate with lower urinary tract symptoms (LUTS) Cysto (06/13/2104): (+)BPH w/ intravesical median lobe. Started Finasteride -- 06/13/2014. Hematuria, gross Hematuria w/u (March - May 2014) no evidence of malignancy. 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 Laryngopharyngeal reflux 09/08/2013 Dysphagia, pharyngoesophageal phase 09/08/2013 Acquired skull defect 09/14/2012 S/p wound infection, removal of bone flap [...] of recurrent major depressive disorder, without psychotic features ([facility]) 11/04/2011 SIRS (systemic inflammatory response syndrome) ([facility]) 11/03/2011 Respiratory failure ([facility]) 11/03/2011 Hypokalemia 07/15/2011 Pneumocephalus 07/11/2011 Post-occipital carlos hole electrode placement Groin pain, right lower quadrant 05/21/2011 S/p flakita Weakness 04/10/2011 Partial epilepsy with impairment of consciousness, intractable ([facility]) 2009 S/p left temporal lobectomy in 08/2011. Patient has been seizure free since then. Chronic otitis media 07/31/2010 Hearing loss, mixed, bilateral 07/31/2010 Ataxia 02/22/2008 Morbid obesity ([facility]) 02/22/2008 АНДРЕЙ (obstructive sleep apnea) 02/22/2008 Neuropathy Peripheral 02/10/2008 Fidel Henriquez is a 67 y.o. 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 Hospital and ICU course: 01/31: admitted to NICU, Stroke activation, cardiology consult, ENT consult, MRI 02/01: stable overnight Neuro: Hx left temporal lobectomy for uncontrolled seizures - [employer] Dilantin SR 100 mg - [employer] medication, sub-therapeutic level, but patient has been seizure free for many years and this is a stable level for him. - [employer] Neurontin 800 mg, Baclofen 10 mg TID Mastoiditis, Chronic otitis media: - ENT consulted - MRI head, MRI facial Left sided weakness, dysarthria - no indication for evaluation with CTA/CTP for acute stroke intervention given unclear symptom onset - obtain MRI W/WO - no stroke - ASA 325 mg started Sedation/Pain Management: Peripheral neuropathy, depression, anxiety - Assess for delirium daily - [employer] Zoloft 100 mg, Remeron - [employer]ATOR Baclofen 10 mg TID - Neurontin 800 mg Q 8 - [place] Cardiac:HTN, chest pain, PVC - EKG - multiple PVC - Cardiology consulted - Troponin negative - EKG negative - Bumex 1 mg BID, [employer] lisinopril 20 mg, atenolol 100 mg, Norvasc 5 mg Q day Respiratory:АНДРЕЙ - Stable GI: - Feeding: NPO - neurosurgery bowel regimen, ensure daily BM Heme: - assess for coagulopathy, maintain platelets above 100k, INR <1.5 ID: - Tmax afebrile - aim for normothermia, Temp <38.3 celsius, normothermia protocol if febrile Renal: Gout, BPH - Aim for normovolemia - [employer] Proscar, Allopurinol Endocrine: DM - Blood glucose goal 100-180mg/dl - HA1C pending- [place] SSI FEN: - Magnesium goal >2.0, i-Rupesh goal > 1.0, Potassium goal >4.0 mEq/L Prophylaxis Review: A)GI: PPI/[id number] B) Lines: No C) Urinary Catheter: No D) Antibiotic Usage: No E) VTE: { F) Isolation: no G)Seizures: dilantin I) Restraints: Patient assessed for need for restraints. Disposition/Family: ICU care Primary service: NS Consults: NICU SUBJECTIVE Fidel Henriquez is a 67 y.o. male. Overnight Events: No new events noted. OBJECTIVE Vital Signs: Last Filed Vital Signs: 24 Hour Range BP: 119/69 (02/02 400) Temp: 36.7 C (98 F) (02/01 040) Pulse: 56 (02/01 0500) Respirations: 14 PER MINUTE (02/01 050) SpO2: 96 % (02/01 050) O2 Delivery: None (Room Air) (02/01 500) Height: 185.4 cm (73") (01/31 1146) Weight: 129.5 kg (285 lb 7.9 oz) (02/01 050) BP: (98-158)/(17-113) Temp: [36.4 C (97.6 F)-37.1 C (98.8 F)] Pulse: [51-69] Respirations: [11 PER MINUTE-26 PER MINUTE] SpO2: [90 %-98 %] O2 Delivery: None (Room Air) Intensity Pain Scale 0-10 (Pain 1): (not recorded) Vitals: 01/31/18 0500 01/31/18 1146 02/01/18 0500 Weight: 130.2 kg (287 lb 0.6 oz) 130.2 kg (287 lb 0.6 oz) 129.5 kg (285 lb 7.9 oz) Artificial airway: None Ventilator/ Respiratory Therapy: No Vent weaning trial: Not applicable Lines: Peripheral Line Drains: None Critical Care Vitals: ICP Monitoring: Hemodynamics/Oxycalcs: Intake/Output Summary: (Last 24 hours) Intake/Output Summary (Last 24 hours) at 02/01/18624 Last data filed at 01/31/18 2100 Gross per 24 hour Intake 400 ml Output 1335 ml Net -935 ml Physical Exam: Blood pressure 119/69, pulse 56, temperature 36.7 C (98 F), height 185.4 cm (73"), weight 129.5 kg (285 lb 7.9 oz), SpO2 96 %. [place] coma score: E: 4 - Opens eyes on own M: 6 - Follows simple motor commands V: 5 - Alert and oriented Neuro: Mental Status: alert, oriented x3 Cranial Nerves: - Pupil exam: Size: 6 Reactivity : fixed Motor: RUE: Strength: 4/5; RLE: Strength: 4/5; LUE: Strength: 5/5; LLE: Strength: 5/5; Lungs: clear to auscultation bilaterally Pulmonary: Respiratory status: Stable Heart: irregularly irregular rhythm Abdomen: soft, non-tender. Bowel sounds normal. No masses, no organomegaly Extremities: non pitting edea in lower extremities Skin: some skin ulceration in lower extremities Point of Care Testing: (Last 24 hours) Glucose: (!) 180 (02/01/18439) POC Glucose (Download): (!) 177 (02/01/18439) Lab Review: Pertinent labs reviewed Radiology and Other Diagnostic Procedures Review: Pertinent radiologic and diagnostic procedures reviewed. Malathi Mckenna APRN Date: 02/01/[phone] * Giacomo Pandey RN - 01/31/2018 1:21 PM SCRIPT EDITOR 1320- Dr Marilyn Dr and Dr Cox with Neuro-Surg at bedside to preform Lumbar Puncutre. Patient and daughter expressed understanding of the procedure. Consent obtained by team and present in chart. Time out Preformed with two MD's and one RN. 1335- Procedured completed. Dr Cox with Neuro-Surg explained plan of care to patient and daughter. Patient otherwise stable, please see doc flow sheets for more information. * Ange Manzo MD - 01/31/2018 12:11 PM SCRIPT EDITOR Formatting of this note may be different from the original. NEURO-ENT ICU Critical Care Progress Note Today's Date: 01/31/2018 Name: Fidel Henriquez Admission Date: 01/30/2018 LOS: 0 days ICU problem list: Diagnosis Hygroma Chronic migraine Status post craniectomy Weakness of left lower extremity Abnormal gait Chronic nonsuppurative otitis media of right ear Adjustment disorder with mixed anxiety and depressed mood Atypical facial pain Skin-picking disorder Prostate cancer screening ED (erectile dysfunction) of organic origin Enlarged prostate with lower urinary tract symptoms (LUTS) Hematuria, gross Dysphonia Vocal cord bowing Laryngopharyngeal reflux Dysphagia, pharyngoesophageal phase Acquired skull defect Meningitis History of melanoma HTN (hypertension) Severe episode of recurrent major depressive disorder, without psychotic features (HCC) SIRS (systemic inflammatory response syndrome) (HCC) Respiratory failure (HCC) Hypokalemia Pneumocephalus Groin pain, right lower quadrant Weakness Partial epilepsy with impairment of consciousness, intractable (HCC) Chronic otitis media Hearing loss, mixed, bilateral Ataxia Morbid obesity (HCC) АНДРЕЙ (obstructive sleep apnea) Neuropathy Peripheral ATTESTATION Date of Service: 01/31/2018 I have seen, personally fully evaluated, and discussed patient with the NEURO- ENT ICU team. The patient is ill with L sided weakness, dysarthria concerning for stroke or other neurological process. No critical care services provided - subsequent hospital care. Neuro: L side weakness and dysarthria, chronic mastoiditis and otitis media, Hx left temporal lobectomy for uncontrolled seizures - MRI without acute stroke - [employer] Dilantin SR 100 mg, - [employer]PERATOR Neurontin 800 mg, Baclofen 10 mg TID - - ASA 325 mg started Sedation/Pain Management: Peripheral neuropathy, depression, anxiety - [employer] OPERATOR Zoloft 100 mg, Remeron - [employer] OPERATOR Baclofen 10 mg TID - Neurontin 800 mg Q 8 - [place] - Assess for delirium daily Cardiac: HTN, PVC - EKG - multiple PVC - Cardiology consulted - Troponin negative x2, one more pending - Bumex 1 mg BID, [employer] lisinopril 20 mg, atenolol 100 mg, Norvasc 5 mg Q day Respiratory:АНДРЕЙ - OOB, aggressive RT - Home CPAP while sleeping GI: - Feeding: NPO until plan finalized - neurosurgery bowel regimen, ensure daily BM Heme: - assess for coagulopathy, maintain platelets above 100k, INR <1.5 ID: Possible acute on chronic infection - Afebrile but does have mild leukocytosis - Start Rocephin per ENT recs - aim for normothermia, Temp <38.3 celsius, normothermia protocol if febrile Renal: Gout, BPH - Aim for normovolemia - [employer] Proscar, Allopurinol Endocrine: DM - Blood glucose goal 100-180mg/dl - HA1C pending - Low dose SSI started FEN: - Magnesium goal >2.0, i-Rupesh goal > 1.0, Potassium goal >4.0 mEq/L Prophylaxis Review: A)GI: PPI/[id number] B) Lines: No C) Urinary Catheter: No D) Antibiotic Usage: No E) VTE: { F) Isolation: no G)Seizures: dilantin I) Restraints: Patient assessed for need for restraints. Dispo: Recommend transfer to floor for further evaluation and planning. Staff name: Vicki Manzo MD Date: 01/31/2018 __ Objective: Medications: Scheduled Meds: allopurinol (ZYLOPRIM) tablet 100 mg 100 mg Oral QDAY amLODIPine (NORVASC) tablet 5 mg 5 mg Oral QDAY aspirin tablet 325 mg 325 mg Oral QDAY atenolol (TENORMIN) tablet 100 mg 100 mg Oral QDAY baclofen (LIORESAL) tablet 10 mg 10 mg Oral TID [START ON 02/02/2018] bisacodyl (DULCOLAX) rectal suppository 10 mg 10 mg Rectal QDAY bumetanide (BUMEX) tablet 1 mg 1 mg Oral BID(9-17) cefTRIAXone (ROCEPHIN) IVP 1 g 1 g Intravenous Q24H* docusate (COLACE) capsule 100 mg 100 mg Oral BID finasteride (PROSCAR) tablet 5 mg 5 mg Oral QDAY gabapentin (NEURONTIN) capsule 800 mg 800 mg Oral Q8H insulin aspart U-100 (NOVOLOG FLEXPEN) injection PEN 0-7 Units 0-7 Units Subcutaneous 5 X Day lidocaine (LIDODERM) 5 % topical patch 1 patch 1 patch Topical Q24H* lisinopril (PRINIVIL; ZESTRIL) tablet 20 mg 20 mg Oral QDAY loratadine (CLARITIN) tablet 10 mg 10 mg Oral QDAY milk of magnesia (CONC) oral suspension 10 mL 10 mL Oral QDAY mirtazapine (REMERON) tablet 45 mg 45 mg Oral QHS ofloxacin (FLOXIN) 0.3 % (ophthalmic for otic use) solution 4 drop 4 drop Both Ears BID pantoprazole DR (PROTONIX) tablet 40 mg 40 mg Oral QDAY(21) phenytoin SR (DILANTIN) capsule 300 mg 300 mg Oral QDAY senna/docusate (SENOKOT-S) tablet 1 tablet 1 tablet Oral BID sertraline (ZOLOFT) tablet 300 mg 300 mg Oral QDAY Continuous Infusions: PRN and Respiratory Meds:acetaminophen Q4H PRN, docusate BID PRN, fentaNYL citrate PF Q1H PRN, hydrALAZINE Q6H PRN, HYDROcodone/acetaminophen Q4H PRN, labetalol (NORMODYNE; TRANDATE) injection Q15 MIN PRN, nitroglycerin Q5 MIN PRN , ondansetron (ZOFRAN) IV Q6H PRN Vital Signs: Last Filed Vital Signs: 24 Hour Range BP: 125/68 (01/31 1146) Temp: 36.5 C (97.7 F) (01/31 0800) Pulse: 54 (01/31 1100) Respirations: 18 PER MINUTE (01/31 1100) SpO2: 96 % (01/31 1100) O2 Delivery: None (Room Air) (01/31 1000) Height: 185.4 cm (73") (01/31 1146) Weight: 130.2 kg (287 lb 0.6 oz) (01/31 1146) BP: (100-143)/(45-89) Temp: [36.5 C (97.7 F)-36.9 C (98.4 F)] Pulse: [51-61] Respirations: [12 PER MINUTE-25 PER MINUTE] SpO2: [92 %-99 %] O2 Delivery: None (Room Air) Intensity Pain Scale 0-10 (Pain 1): (not recorded) Vitals: 01/30/18 2300 01/31/18 0500 01/31/18 1146 Weight: 129.7 kg (285 lb 15 oz) 130.2 kg (287 lb 0.6 oz) 130.2 kg (287 lb 0.6 oz ) Intake/Output Summary: (Last 24 hours) Intake/Output Summary (Last 24 hours) at 01/31/18 1211 Last data filed at 01/31/18 0600 Gross per 24 hour Intake 600 ml Output 700 ml Net -100 ml Physical Exam: AOx3, NAD Ff commands x 4, slightly weaker on R side L face swelling RRR, no murmur CT B/L Abd S, NT, +BS Ext warm Lab Review: Pertinent labs reviewed Point of Care Testing: (Last 24 hours): Glucose: 90 (01/31/18 0255) POC Glucose (Download): (!) 108 (01/31/18 0854) Radiology and Other Diagnostic Procedures Review: Pertinent radiology reviewed. Vicki Manzo MD 01/31/2018 Pager: [phone] * Giacomo Pandey, RN - 01/31/2018 11:57 AM SCRIPT EDITOR 1200--Notified YONI-OSCAR Mckenna that patient expressed feeling SOB progressively over the last few hours. Patient described it as more swelling. Currently patient is SPO2 is 95-98% on home CPAP, HR 55, BP 129/59, Alert and Oriented x4. Patient sounds clear to auscultation. Patient states he is otherwise comfortable at this time. Orders to continue to monitor given. 1201--This RN Contacted RT to and asked them to re-evaluate patiens home CPAP machine to ensure that it is functioning appropriately. * Word, Ernestine, PT - 01/31/2018 10:41 AM SCRIPT EDITOR PHYSICAL THERAPY ASSESSMENT MOBILITY: Progressive Mobility Level: Stand Level of Assistance: Assist X2 Assistive Device: Hand Held Time Tolerated: 0-10 minutes Activity Limited By: Weakness;Fatigue SUBJECTIVE: Subjective Significant hospital events: 67 y.o. 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 who was transferred from an outside hospital to the neuro ICU for slurred speech and facial asymmetry. He is being evaluated for mastoiditis and stroke. He is also complaining of chest pain which is prompting urgent cardiology consult. Negative for stroke 01/31 Mental / Cognitive Status: Oriented;Cooperative;Follows Commands Persons Present: Daughter;OT Pain: Patient complains of pain Pain Location: Bilateral;Leg;Left;Face Pain Description: Aching Pain Interventions: Patient agrees to participate in therapy;Patient assisted into position of comfort Ambulation Assist: Independent Mobility in Community with Device Patient Owned Equipment: Single Point Cane Home Situation: Lives Alone Type of Home: Apartment (independent living) Entry Stairs: No Stairs In-Home Stairs: No Stairs Comments: Per patient's daughter, patient lives in a retired living community. Patient's daughter and additional medication care manager come to house to assist with IADLs and supervision for safety during ADLs. Patient has history of falls. Per daughter, patient appears to have difficulty performing ADLs. ROM: ROM UE ROM: WFL LE ROM: WFL STRENGTH: Strength Overall Strength: Generalized Weakness POSTURE/NEURO: Posture / Neurological Head Control: Independent Posture: Forward Head;Rounded Shoulders BED MOBILITY/TRANSFERS: Bed Mobility/Transfers Bed Mobility: Supine to Sit: Minimal Assist;x2 People;Assist with B LE;Assist with Trunk Bed Mobility: Sit to Supine: Minimal Assist;x2 People;Assist with B LE;Assist with Trunk Transfer Type: Sit to Stand Transfer: Assistance Level: To/From;Bed;Maximal Assist;x2 People Transfer: Assistive Device: Hand Hold Assist Transfers: Type Of Assistance: Verbal Cues;Knees(s) Blocked;For Balance;For Strength Deficit;For Safety Considerations End Of Activity Status: In Bed;Nursing Notified;Instructed Patient to Use Call Light;Instructed Patient to Request Assist with Mobility (bed alarm on) Comments: Patient performed two sit to stand transfers, required maximal assist x 2 secondary to weakness and poor balance. BALANCE: Balance Sitting Balance: Static Sitting Balance;2 UE Support;Standby Assist;Minimal Assist Standing Balance: Static Standing Balance;Dynamic Standing Balance;2 UE support; Maximal Assist;x2 People GAIT: Gait Comments: Patient stood and took one step along bedside with maximal assist x 2. Patient very weak upon standing, slight buckling of lower extremities. Patient retropulsive at times and poor trunk control Activity Limited By: Weakness;Complaint of Fatigue ACTIVITY/EXERCISE: Activity / Exercise Sit Edge Of Bed: 5 minutes Sit Edge Of Bed Assist: Stand By Assist;Minimal Assist EDUCATION: Education Persons Educated: Patient/Family Patient Barriers To Learning: None Noted Teaching Methods: Verbal Instruction Patient Response: Verbalized Understanding Topics: Plan/Goals of PT Interventions;Mobility Progression;Safety Awareness;Up with Assist Only;Importance of Increasing Activity;Recommend Continued Therapy ASSESSMENT/PROGRESS: Assessment/Progress Impaired Mobility Due To: Decreased Strength;Pain;Impaired Balance;Safety Concerns;Decreased Activity Tolerance Assessment/Progress: Should Improve w/ Continued PT AM-PAC 6 Clicks Basic Mobility Inpatient Turning from your back to your side while in a flat bed without using bed rails : A Little Moving from lying on your back to sitting on the side of a flatbed without using bedrails : A Lot Moving to and from a bed to a chair (including a wheelchair): Total Standing up from a chair using your arms (e.g. wheelchair, or bedside chair): Total To walk in hospital room: Total Climbing 3-5 steps with a railing: Total Raw Score: 9 Standardized (T-scale) Score: 25.8 Basic Mobility CMS 0-100%: 77.59 CMS G Code Modifier for Basic Mobility: CL GOALS: Goals Goal Formulation: With Patient/Family Time For Goal Achievement: 3 days, To, 5 days Pt Will Go Supine To/From Sit: w/ Stand By Assist Pt Will Transfer Bed/Chair: w/ Minimal Assist Pt Will Transfer Sit to Stand: w/ Minimal Assist Pt Will Ambulate: 31-50 Feet, w/ Moderate Assist PLAN: Plan Treatment Interventions: Mobility Training;Strengthening;Balance Activities; Coordination Training;Endurance Training;Neuromuscular Reeducation Plan Frequency: 5 Days per Week Comments: Progress bed mobility and sit to stand transfers. Trial transfer to chair next visit and gait as able RECOMMENDATIONS: PT Discharge Recommendations: Inpatient Setting;Recommend Physical Medicine and Rehabilitation Consult to address most appropriate level of rehabilitation placement Equipment Recommendations: Too early to be determined Therapist: Ernestine Saavedra PT, DPT Date: 01/31/2018 G-Codes: Mobility G8978 Current Status: 60-79% Impairment G8979 Goal Status: 20-39% Impairment Based on above evaluation and clinical judgment. * Alyce Garrett, OT - 01/31/2018 10:41 AM SCRIPT EDITOR Formatting of this note may be different from the original. OCCUPATIONAL THERAPY ASSESSMENT NOTE Patient Name: Fidel Henriquez Room/Bed: [place] [address] Admitting Diagnosis: stroke like symptoms Hygroma Past Medical History: Diagnosis Date Acute myocardial infarction, unspecified site 1979 Arthritis Attempted suicide 2004 Overdose CAD (coronary artery disease) Chronic mastoiditis of left side Chronic otitis media ED (erectile dysfunction) Enlarged prostate Epilepsy (HCC) Headache(784.0) Headaches Hypertension Infection bone flap Morbid obesity (HCC) Neuropathy, lower extremity Bilateral Non-melanoma skin cancer АНДРЕЙ (obstructive sleep apnea) uses C-PAP Pruritus - disorder bilateral arms, shoulders. Seizure (HCC) Weakness of left side of body x3 years following seizures. Wound infection chronic Mobility Progressive Mobility Level: Active transfer to chair Level of Assistance: Assist X2 Assistive Device: Hand Held Time Tolerated: 0-10 minutes Activity Limited By: Weakness;Fatigue Subjective Pertinent Dx per Physician: Fidel Henriquez is a 67 y.o. male known to Dr. Frias with bilateral otitis admitted by neurosurgery for worsening left sided facial swelling with weakness. He reports 2 weeks of left ear drainage with progressive left facial swelling. Hedid not have fevers at home. Drainage is getting worse and he reports worsening of hearing out of left ear. He denies facial nerve changes or vertigo. Negative for stroke work up. Precautions: Standard;Falls Pain / Complaints: Patient agrees to participate in therapy Pain Location: Left;Head (face);BLE upon standing Pain Level Current: (does not rate) Comments: Pt supine in bed at start and end of therapy with needs addressed, call light within reach, bed alarm set, and RN notified of status. 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 Daughter reports that she and another paid caregiver assist with homemaking tasks. Daughter reports patient should utilize a cane, but doesn't when he is on his own. Vision Current Vision: Wears Glasses Only for Reading Comment: Pt unable to fully open left eye this date secondary to swelling. Tender to touch. Continue to assess. ADL's Where Assessed: Edge of Bed LE Dressing Assist: Maximum Assist LE Dressing Deficits: Don/Doff R Sock;Don/Doff L Sock Functional Transfer Assist: Maximum Assist (x2) Comment: Pt was minimal assist x2 for bed mobility. Max assist x2 for sit>stand and taking 1 side step towards HOB. Pt with poor balance, further mobility/ADLs deferred this date. Activity Tolerance Endurance: 1/5 Tolerates <10 Minutes Exercises, No Significant Change in Vital Signs Sitting Balance: 2/5 Supports Self Independently w/Both UEs Cognition Overall Cognitive Status: WFL to Adequately Complete Self Care Tasks Safely Expression: Increased Time for Expression;Mumbling/Slurred Social Interaction: Increased Time to Adjust UE AROM Grasp: L Weakened Sensory Comment: Pt endorses peripheral neuropathy in BLE. Education Persons Educated: Patient/Family Teaching Methods: Verbal Instruction Patient Response: More Instruction Required Topics: Role of OT, Goals for Therapy Goal Formulation: With Patient/Family Assessment Assessment: Decreased ADL Status;Decreased Safe/Judg during ADL;Decreased Self- Care Trans;Decreased High-Level ADLs;Decreased Endurance;Decreased UE Strength; Visual Deficit Prognosis: Good;w/Cont OT s/p Acute Discharge Goal Formulation: Pt/family AM-PAC 6 Clicks Daily Activity Inpatient Putting on and taking off regular lower body clothes?: A Lot Bathing (Including washing, rinsing, drying): A Lot Toileting, which includes using toilet, bedpan, or urinal: A Lot Putting on and taking off regular upper body clothing: A Lot Taking care of personal grooming such as brushing teeth: A Little Eating meals?: A Little Daily Activity Raw Score: 14 Standardized (t-scale) score: 33.39 CMS 0-100% Score: 59.67 CMS G Code Modifier: CK Plan Treatment Interventions: ADL Retraining;Functional Transfer Training;Endurance Training;Patient/Family Training;Equipment Evaluation/Education;Compensatory Technique Education;UE Strengthing/ROM;Visual Perceptual Retraining OT Frequency: 5x/week Next Visit: seated ADLs, transfer to chair as able/potentially BSC ADL Goals Patient Will Perform LE Dressing: In Chair, w/ Minimum Assist Patient Will Perform Toileting: w/ Moderate Assist Functional Transfer Goals Pt Will Perform All Functional Transfers: Moderate Assist G-Codes: Self-care G8987 Current Status: 40-59% Impairment G8988 Goal Status: 1-19% Impairment Based on above evaluation and clinical judgment. OT Discharge Recommendations OT Discharge Recommendations: Inpatient Setting, Recommend PM&R Consult to address most appropriate level of rehabilitation placement [phone]). Equipment Recommendations: Shower Chair Recommend ongoing assistance for: In and out of house, Transfers, Bed mobility, Ambulation, Stairs, Meal preparation, Safety concerns, Dressing, Grooming, Bathing, Toileting, Homemaking Therapist: Alyce Garrett, LUIS ARMANDOR/L [id number] Date: 01/31/2018 * Giacomo Pandey RN - 01/31/2018 10:06 AM SCRIPT EDITOR 1000-Patient taken to CTA by Suzy SEXTON and one IT SECURITY SPECIALIST. * Jess Hugo - 01/31/2018 9:45 AM SCRIPT EDITOR SPEECH-LANGUAGE PATHOLOGY CLINICAL SWALLOW ASSESSMENT EVALUATION SUMMARY Summary: Clinical swallow evaluation completed. Suspect mild-moderate oropharyngeal dysphagia present. Primary factors impacting swallow function at this time include possible degree of weakness. Pt with multiple swallows with nectar thickened liquids, and unable to complete 3 oz water challenge suggesting risk for silent aspiration events with large bolus volumes. Per chart review, pt has been seen with ENT with dx of hyperfunctional dysphonia, with laryngoplasty. Pt with hoarse vocal quality this date, which he reports is worse than his baseline. Mild dysarthria present. Educated pt on use of compensatory techniques, verbalized understanding. Will continue to follow, please see details below. RECOMMENDATIONS Full liquid diet with intermittent supervision, if overt s/s of aspiration withhold PO intake and notify INSULATION INSTALLER Medications 1 at a time with purees Excellent oral care to reduce risk of aspiration of bacteria from the oral cavity Pt may benefit from further evaluation of vocal quality as pt notes worsening this date, will defer to primary team/ENT INSULATION INSTALLER department will continue to follow for dysphagia management Oral Stage Summary*: Trials of ice chips, thin liquids (via tsp, cup drink, 3 oz water challenge), nectar liquids (via tsp), and pureed solids provided. Oral stage appeared WFL. Pharyngeal Stage Summary*: Swallow initiation appeared intermittently delayed. Laryngeal palpation unable to be assessed secondary to body habitus. Pt unable to complete 3 oz water challenge, with multiple starts/stops. Multiple swallows appreciated with nectar liquids. Pt reports anticipation of difficulty with large bolus sizes. No overt s/s of aspiration appreciated with small sips of thin liquids, which pt completes independently. Swallow Recommendations* PO: Full Liquid Swallow Strategies: Small Bites/Sips, Slow Rate of Intake, Alternate Solids and Liquids Plan: Continue Treatment __x/week (Comment). (3-5x) Prognosis: Fair, Good NOMS Dysphagia Ratin4-[id number] Dysphagia -Swallow safe but usually requires mod cues to use compensatory strategies &/or has mod diet restrictions &/or still requires tube feeding &/or oral supplements. Results Reported to Physician: Yes Objective 67yo male w/ PMH HTN, CAD, Baastrup's disease, partial epilepsy s/p lobectomy complicated by wound incision requiring craniectomy, chronic mastoiditis s/p L mastoidectomy and tympanoplasty, admitted to under care of neurosurgery for further evaluation of worsening L facial swelling now with 3 day h/o L sided weakness and dysarthria. Neurologic examination tonight is notable for 4+/5 strength in UE & LE, L upper facial paralysis, and mild dysarthria. Will recommend obtaining MRI W/WO for further evaluation. Psychosocial Status: Willing and Cooperative to Participate Persons Present: None Subjective* Pain: Patient has no complaint of pain Pain Level Current*: No pain Trach Presence: No Feeding Tube Present During Eval: None Nutrition* Nutrition Prior To Hospitalization: Regular, Thin Liquids Current Form Of Nutrition: NPO ORAL MECH EXAM Oral Mech WFL*: No Oral Mech Exam Summary*: Pt with hoarse/strained vocal quality. Weakened throat clear. Some missing dentition. Education* Persons Educated: Patient Barriers To Learning: None Noted Interventions: Staff Educated, Provided Written Education Teaching Methods: Verbal, Demonstration Topics: Dysphagia Patient Response: Verbalized Understanding Goal Formulation: With Patient Clinical Swallow Goals* Goal : Pt will tolerate full liquid diet with use of compensatory techniques and no overt s/s of aspiration. Goal : Pt will participate in ongoing evaluation of dysphagia. Therapist:Jess Hugo M.A. CF-INSULATION INSTALLER Pager: [phone] Weekend Acute Pager: [phone] Date:01/31/2018 * Immanuel Guillory, RT - 01/31/2018 5:14 AM SCRIPT EDITOR Formatting of this note may be different from the original. RESPIRATORY THERAPY ADULT PROTOCOL EVALUATION RESPIRATORY PROTOCOL PLAN Medications Criteria Not Met Note: If indicated by protocol, medication orders will be placed by therapist. Procedures PAP: Place a nursing order for "IS Q1h While Awake" for any of Lung Expansion indicators Monitoring: Pulse oximetry continuous during night/sleep (АНДРЕЙ protocol) PATIENT EVALUATION RESULTS Chart Review * Pulmonary Hx: No pulmonary diagnosis OR no smoking hx * Surgical Hx: No surgery OR last surgery > 6 weeks ago OR trach/stoma (BA) * Chest X-Ray: Clear OR not available (no recent xray available at this time) * PFT/Oxygenation: FEV1, PEFR > 80% predicted OR physically unable to perform OR Pa02 >80 RA OR Sp02 >95% RA Patient Assessment * Respiratory Pattern: Regular pattern and rate OR good chest excursion with deep breathing * Breath Sounds: Clear apically, but diminished in bases (LE) OR CHF related crackles (02) (oximetry) * Cough / Sputum: Good effective cough OR occasional or minimal sputum OR thin sputum * Mental Status: Alert, oriented, cooperative * Activity Level: Ambulatory with assistance Priority Index Total Points: 3 Points * Priority Index: Criteria not met PRIORITY INDEX GUIDELINES* Priority Points 1 0-9 points 2 9-18 points 3 > 18 points + Pulm Dx or Home Rx *Higher points indicate higher acuity. Therapist: Immanuel Guillory, RT Date: 01/31/2018 [place] AC=Airway clearance AM=Aerosolized medication BA=[place] aerosol DB&C=Deep breathe & cough FEV1=Forced expiratory volume in first second) IC=Inspiratory capacity LE=Lung expansion MDI=Metered dose inhaler Neb=Nebulizer O2=Oxygen Oxim=Oximetry PEFR=Peak expiratory flow rate CONSTRUCTION PERSON=Rapid Response Team * Francois Hart RN - 01/31/2018 3:54 AM SCRIPT EDITOR Pt transported to MRI via bed on monitor with this RN and one NA at 0330 to 0500....VSS. Will continue to monitor. in this encounter H&P Notes * Ehsan Chirinos APRN-NP - 02/02/2018 11:13 AM SCRIPT EDITOR Formatting of this note may be different from the original. Pre Procedure History and Physical/Sedation Plan Procedure Date: 02/02/2018 Planned Procedure(s): LP with opening pressure Chief Complaint: Suspected meningitis Previous Anesthetic/Sedation History: Denies adverse events r/t sedation/ anesthesia. Allergies: Patient has no known allergies. Medications: Scheduled Meds: allopurinol (ZYLOPRIM) tablet 100 mg 100 mg Oral QDAY amLODIPine (NORVASC) tablet 5 mg 5 mg Oral QDAY aspirin tablet 325 mg 325 mg Oral QDAY atenolol (TENORMIN) tablet 100 mg 100 mg Oral QDAY atorvastatin (LIPITOR) tablet 20 mg 20 mg Oral QHS baclofen (LIORESAL) tablet 10 mg 10 mg Oral TID bisacodyl (DULCOLAX) rectal suppository 10 mg 10 mg Rectal QDAY bumetanide (BUMEX) tablet 1 mg 1 mg Oral BID(9-17) carboxymethylcellulose (REFRESH PLUS) 0.5 % ophthalmic solution 1 drop 1 drop Both Eyes QID cefTRIAXone (ROCEPHIN) IVP 1 g 1 g Intravenous Q24H* docusate (COLACE) capsule 100 mg 100 mg Oral BID finasteride (PROSCAR) tablet 5 mg 5 mg Oral QDAY gabapentin (NEURONTIN) capsule 800 mg 800 mg Oral Q8H insulin aspart U-100 (NOVOLOG FLEXPEN) injection PEN 0-14 Units 0-14 Units Subcutaneous ACHS lidocaine (LIDODERM) 5 % topical patch 1 patch 1 patch Topical Q24H* lisinopril (PRINIVIL; ZESTRIL) tablet 20 mg 20 mg Oral QDAY loratadine (CLARITIN) tablet 10 mg 10 mg Oral QDAY milk of magnesia (CONC) oral suspension 10 mL 10 mL Oral QDAY mirtazapine (REMERON) tablet 45 mg 45 mg Oral QHS ofloxacin (FLOXIN) 0.3 % (ophthalmic for otic use) solution 4 drop 4 drop Both Ears BID pantoprazole DR (PROTONIX) tablet 40 mg 40 mg Oral QDAY(21) phenytoin SR (DILANTIN) capsule 300 mg 300 mg Oral QDAY senna/docusate (SENOKOT-S) tablet 1 tablet 1 tablet Oral BID sertraline (ZOLOFT) tablet 300 mg 300 mg Oral QDAY Continuous Infusions: PRN and Respiratory Meds:acetaminophen Q4H PRN, docusate BID PRN, fentaNYL citrate PF Q1H PRN, hydrALAZINE Q6H PRN, HYDROcodone/acetaminophen Q4H PRN, labetalol (NORMODYNE; TRANDATE) injection Q15 MIN PRN, nitroglycerin Q5 MIN PRN , ondansetron (ZOFRAN) IV Q6H PRN Vital Signs: Last Filed Vital Signs: 24 Hour Range BP: 108/76 (02/02 1054) Temp: 36.4 C (97.5 F) (02/02 1054) Pulse: 55 (02/02 105) Respirations: 17 PER MINUTE (02/02 1054) SpO2: 97 % (02/02 105) O2 Delivery: CPAP/BiPAP (Pt Owned) (02/02 1054) SpO2 Pulse: 58 (02/01 1300) BP: (107-116)/(59-76) Temp: [36.4 C (97.5 F)-36.8 C (98.2 F)] Pulse: [36-59] Respirations: [16 PER MINUTE-18 PER MINUTE] SpO2: [94 %-97 %] O2 Delivery: CPAP/BiPAP (Pt Owned) Sedation/Medication Plan: Lidocaine Personal history of sedation complications: Denies adverse event. Family history of sedation complications: Denies adverse event. Medications for Reversal: None Discussion/Reviews: Physician has discussed risks and alternatives of this type of sedation and above planned procedures with patient NPO Status: Acceptable Airway: airway assessment performed Mallampati III (soft palate, base of uvula visible) Head and Neck: no abnormalities noted Mouth: no abnormalities noted Anesthesia Classification: ASA III (A patient with a severe systemic disease that limits activity, but is not incapacitating) Status: N/A Lab/Radiology/Other Diagnostic Tests Labs: Relevant labs reviewed I have examined the patient, and there are no significant changes in their condition, from the previous H&P performed on 02/01/18. Ehsan Chirinos APRN-SENIOR STATISTICAL PROGRAMMER Pager [phone] * Petar Pradhan MD - 01/31/2018 12:55 AM SCRIPT EDITOR Formatting of this note may be different from the original. Neurosurgery History and Physical Examination Fidel Henriquez Admission Date: 01/30/2018 Assessment/Plan: Fidel Henriquez is a 67 y.o. male with acute left sided weakness, facial pain and swelling - No acute neurosurgical interventions - ENT consult for evaluation of chronic otitis media and evaluation for mastoiditis - Cardiology consult stat for acute coronary syndrome with new EKG changes ( although suspicion is low). 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 CRP, ESR without indication for severe/chronic infection - NEICU consult - Stroke team consult for acute CVA symptoms, however low suspicion for CVA and given presentation of ~1 week suspect that if there was an ischemic event no intervention would be warranted - MRI head orbit w/ w/o contrast Will further discuss with Dr. Kris Pradhan MD __ Chief Complaint: Stroke like symptoms History of Present Illness: Fidel Henriquez is a 67 y.o. male with a PMHx of hypertension, obstructive sleep apnea on Cpap, obesity, seizure disorder, L vagal nerve stimulator, chronic otitis media, depression, history of left temporal lobectomy for seizure disorder 09/17/11 and of chronic bilateral mastoiditis and recurrent scalp soft tissue infection, MSSA. Following his previous craniotomy in 2010, the patient developed an infection requiring craniectomy.On 12/27/11 pt was taken to OR by Dr Frias for left canal wall down tympanoplasty with mastoidectomy for chronic otitis media. He was discharged on doxycycline on 01/01/12 for a short course. During f/u visits, he was noted to have a very tender scalp, even to light palpation, at the surgical site. No signs of infection were appreciated. Re-admitted 05/15/12 and underwent left frontal cranioplasty with synthetic flap to repair cranial defect left by previous infected bone flap. No mention of abnormal or infecting looking material at that time. Unfortunately, he developed signs of infection at this site which led to removal of the bone flap on (06/01/12). A small amount of purulence was noted at the most inferior border of the wound, which was sent for multiple cultures and grew MSSA. The bone flap also grew MSSA. The bony margins of the craniotomy site were then explored and "did not appear to be grossly osteomyelitic". Once again, he was treated with IV nafcillin, completed (07/15/12 ). He is s/p a left tympanoplasty with ossicular chain reconstruction and tube placement by Dr. Frias on 02/27/13. Currently, the patient is followed by the ENT service for bilateral chronic otitis media and a left cavity. His most recent visit was in May [address] Frias. He underwent his most recent cranioplasty on 07/08/[address] Cortes. His seizures are currently controlled. Since 2012, the patient has struggled with left face pain and more recently has been evaluated by Dr. Linton with the pain service for trigeminal nerve block injections and now botox injections. The patient underwent a left face botox injection on 01/07/18. The patient presents for new onset left facial and eye swelling, face pain, slurred speech, and left arm/leg weakness. The patient reports this started on and not addressed until this concern was noticed by his wheat grower on 01/30 who sent him directly to the ED without office treatment/evaluation for his history of posterior vitreous detachment of the left eye. He notes to me that his left sided arm/leg weakness has been present for approximately 1 years time , however had progressed over the last week. Similarly, he notes chronic left facial pain which has been worse over the last week. Following my discussion, his daughter arrived to the hospital who had seen the patient last on 01/30 and noted what she felt to be significant left sided weakness and dysarthric speech changes. Seperately, the patient also complains of crushed sternal chest pain. He notes this pain started on 01/30 and is not associated with any left arm/jaw pain. He had new onset EKG changes with ventricular bigeminy at the outside hospital without significant hypotension. Past Medical History: Past Medical History: Diagnosis Date Acute myocardial infarction, unspecified site 1979 Arthritis Attempted suicide 2004 Overdose CAD (coronary artery disease) Chronic mastoiditis of left side Chronic otitis media ED (erectile dysfunction) Enlarged prostate Epilepsy (HCC) Headache(784.0) Headaches Hypertension Infection bone flap Morbid obesity (HCC) Neuropathy, lower extremity Bilateral Non-melanoma skin cancer АНДРЕЙ (obstructive sleep apnea) uses C-PAP Pruritus - disorder bilateral arms, shoulders. Seizure ([facility]) Weakness of left side of body x3 years following seizures. Wound infection chronic Past Surgical History: Past Surgical History: Procedure Laterality Date HX BRAIN SURGERY 09/17/11 Left temporal lobectomy for uncontrolled seizures HX MASTOIDECTOMY 12/27/11 left side; canal wall down TYMPANOPLASTY 12/27/11 CRANIECTOMY 11/05/12 Infected bone flap removal SURGERY 11/05/12 I&D of infected bone flap ANKLE ARTHROSCOPY right. APPENDECTOMY CARPAL TUNNEL RELEASE right. CATARACT REMOVAL bilateral. HX CATARACT REMOVAL HX TONSILLECTOMY ROTATOR CUFF REPAIR left shoulder. VAGAL NERVE STIMULATION Social History: Social History Substance Use Topics Smoking status: Never Smoker Smokeless tobacco: Never Used Alcohol use No Family History: Family History Problem Relation Age of Onset Other Mother family: History of heart condition, alzheimers,depression Cancer Other Heart Attack Other Depression Other Other Other Allergies: Patient has no known allergies. Medications: Prescriptions Prior to Admission Medication Sig allopurinol (ZYLOPRIM) 100 mg tablet Take 100 mg by mouth daily. amLODIPine (NORVASC) 5 mg tablet Take 5 mg by mouth daily. atenolol (TENORMIN) 100 mg tablet Take 1 Tab by mouth daily. baclofen (LIORESAL) 10 mg tablet Take 10 mg by mouth three times daily. docusate (COLACE) 100 mg capsule Take 1 Cap by mouth twice daily as needed for Constipation. empagliflozin (JARDIANCE) 25 mg tab Take 25 mg by mouth daily. finasteride (PROSCAR) 5 mg tablet TAKE 1 TABLET BY MOUTH ONCE DAILY gabapentin (NEURONTIN) 800 mg tablet Take 1 tablet by mouth every 8 hours. glimepiride (AMARYL) 2 mg tablet Take 2 mg by mouth twice daily. HYDROcodone/acetaminophen (NORCO) 5/325 mg tablet Take 1 tablet by mouth every 8 hours as needed for Pain ibuprofen (MOTRIN) 600 mg tablet Take 600 mg by mouth every 12 hours as needed. lidocaine (LIDODERM) 5 % topical patch Apply 1 patch topically to affected area every 24 hours. Apply patch for 12 hours, then remove for 12 hours before repeating. lisinopril (PRINIVIL; ZESTRIL) 10 mg tablet Take 20 mg by mouth daily. loratadine (CLARITIN) 10 mg tablet Take 10 mg by mouth daily. meloxicam (MOBIC) 7.5 mg tablet Take 1 tablet by mouth daily. metFORMIN (GLUCOPHAGE) 500 mg tablet Take 500 mg by mouth twice daily with meals. mirtazapine (REMERON) 30 mg tablet Take 1 and 1/2 tablet at night for mood, anxiety and sleep omeprazole DR(+) (PRILOSEC) 20 mg capsule Take 20 mg by mouth daily. phenytoin SR (DILANTIN) 100 mg capsule Take 3 capsules by mouth daily. potassium chloride SR (K-DUR) 20 mEq tablet Take 20 mEq by mouth daily. sertraline (ZOLOFT) 100 mg tablet Take 300mg in AM (3x 100mg) for mood, anxiety and skin picking sitaGLIPtin (JANUVIA) 100 mg tab tablet Take 100 mg by mouth daily. torsemide(+) (DEMADEX) 20 mg tablet Take 20 mg by mouth twice daily. VIAGRA 100 mg tablet Take 1 Tab by mouth as Needed for Erectile dysfunction. Take on empty stomach approx 1-4 hrs prior to sexual activity. Review of Systems: Full 10 point review of systems negative except for HPI Physical Exam: Vital Signs: Last Filed In 24 Hours Vital Signs: 24 Hour Range BP: 120/73 (01/31 0000) Temp: 36.9 C (98.4 F) (01/31) Pulse: 57 (01/31) Respirations: 14 PER MINUTE (01/31) SpO2: 94 % (01/31) O2 Delivery: None (Room Air) (01/31 0000) SpO2 Pulse: 31 (01/31 0000) Height: 185.4 cm (73") (01/30 2300) BP: (120-143)/(73-89) Temp: [36.5 C (97.7 F)-36.9 C (98.4 F)] Pulse: [57-61] Respirations: [12 PER MINUTE-14 PER MINUTE] SpO2: [94 %-99 %] O2 Delivery: None (Room Air) General Appearance: No acute distress Lungs: Good air movement and equal chest rise bilaterally Heart: Regular rate and rhythm Abdomen: Soft, non-tender, obese, no masses Extremities: No edema, redness or tenderness in the calves or thighs HEENT: Prominent pain to palpation of left mastoid. No raised auricle, erythema. Some drainage noted bilateral EAM Neurologic Exam: Mental Status: Awake, alert and oriented x 4, slight dysarthria Pupils: Pupils equal round and reactive to light Cranial Nerves: Peripheral partial facial palsy noted on the left, right pupil 6mm mydriatic non minimally reactive with NPI of 0.9, left pupil mydriatic to 7mm and poorly reactive with NPI to 2.3 Motor: AA EF EE G HF KF KE DF PF EHL Left 5 5 4+ 4 4 4 4 4+ 4+ 4+ Right 5 5 5 5 5 5 5 5 5 5 Normal muscle bulk and tone Left pronator drift Sensation: Sensation intact to light touch diminished left face, hyperaesthetic left V1-V3 Plantar responses toes downgoing bilaterally No clonus bilaterally No donaldson's sign bilaterally Gait: Deferred Cerebellar: No dysmetria Lab Tests: Hematology: Lab Results Component Value Date HGB 12.9 01/30/2018 HCT 39.4 01/30/2018 PLTCT 165 01/30/2018 WBC 11.9 01/30/2018 NEUT 61 01/30/2018 ANC 7.30 01/30/2018 ALC 3.40 01/30/2018 MARGARITA 7 01/30/2018 AMC 0.80 01/30/2018 ABC 0.10 01/30/2018 MCV 91.3 01/30/2018 MCHC 32.8 01/30/2018 MPV 7.1 01/30/2018 RDW 15.8 01/30/2018 General Chemistry: Lab Results Component Value Date NA 141 01/30/2018 K 4.0 01/30/2018 CL 108 01/30/2018 CO2 24 01/30/2018 BUN 24 01/30/2018 CR 1.22 01/30/2018 GLU 89 01/30/2018 GLU 79 12/05/2005 OBSCA 0.96 01/30/2018 CA 8.7 01/30/2018 MG 2.3 01/30/2018 PO4 3.3 01/30/2018 FREEPHENY <0.8 09/11/2017 General Chemistry: Lab Results Component Value Date GAP 9 01/30/2018 ALBUMIN 3.1 07/07/2013 LACTIC 1.0 11/04/2011 TOTBILI 0.3 07/07/2013 DBILI 0.2 11/08/2011 TOTPROT 6.5 07/07/2013 AST 25 07/07/2013 ALT 26 07/07/2013 ALKPHOS 281 07/07/2013 Radiology and other Diagnostics Review: MRI head w/ w/o contrast 'IMPRESSION 1. Prior left pterional craniotomy and partial left temporal lobectomy with unchanged left temporal encephalomalacia. 2. Prior left mastoidectomy with persistent opacification of few residual left mastoid air cells. Small right mastoid effusion also remains. 3. Redemonstration of a pituitary adenoma, not significantly changed since the prior exam. 4. No orbital mass or MRI evidence of optic neuritis. 5. No evidence of acute infarct." Peatr Pradhan MD in this encounter Consult Notes * Monster Curry MD - 02/04/2018 5:28 PM SCRIPT EDITOR Associated Order(s): CONSULT NEUROLOGY PHYSICIAN Formatting of this note may be different from the original. Neurology Consult Note Admission Date: 01/30/2018 LOS: 4 days Reason for Consult: Progressive weakness, for evaluation Consult type: Opinion with orders Assessment: Fidel Henriquez is a 67 y.o. male. With history of localization-related epilepsy s/p left temporal lobectomy (currently well controlled) that got complicated with wound infection s/p craniotomy and craniectomy 2010, HTN, CAD, АНДРЕЙ on CPAP, obesity, was admitted for left facial swelling, neurology were consulted for left-sided weakness. Patient reports left lower extremity weakness over the last 2 months, but got worse on the day of admission. Brain MRI without signs of acute stroke or bleed, only chronic findings of the temporal lobectomy and post surgical findings. Single examination showed significant giveaway weakness in the left upper and left lower extremities. No asymmetric reflexes. He reported decreased sensation on the LUE and LLE. His examination is not consistent with intracranial or cervical pathology at this point. His examination is suggestive of nonphysiological weakness. No need for further neurologic investigation at this point. Patient can be seen again in outpatient settings. Impression: Left sided weakness, nonphysiological weakness. Recommendations: No need for further neurological investigations at this point. Please refer to neurology clinic for another assessment as an outpatient. Neurology Private Consult Service: Pager: [phone] . Pages will be returned by this service attending from the hours of 2PM-10PM Mon- Fri and 1200-1000PM Sat and Sun. Urgent questions can otherwise be directed to the Neurology teaching service at pager [phone]. History of Present Illness: Fidel Henriquez is a 67 y.o. male. With medical history of epilepsy s/p left temporal lobectomy in 2010, chronic bilateral mastoiditis, complicated with a soft tissue infection requiring craniotomy then craniectomy, HTN, АНДРЕЙ on CPAP, obesity, admitted to evaluate left facial swelling, neurology were consulted for progressive weakness. Patient was stroke activated upon his presentation for left-sided weakness and dysarthria. Was deemed not to have a stroke on initial examination, and a brain MRI was recommended, which showed no acute stroke and showed chronic findings of the left temporal lobectomy and the postsurgical signs of the left craniotomy and left mastoidectomy. Patient reports that his left-sided weakness mainly consist of left lower extremity weakness that started more than 2 months ago and gradually been getting worse over time, he reports that it got worse suddenly on the same day of admission. He reports from neuropathy with tingling/pins and needles feeling in bilateral feet but more on the left foot and sometimes on the left fingers. He denies any neck pain or sudden severe back pain, he denies any sphincter incontinence, loss consciousness, severe headache/nausea/vomiting, a physeal description. Past Medical History: Diagnosis Date Acute myocardial infarction, unspecified site 1979 Arthritis Attempted suicide ([facility]) 2005 Overdose CAD (coronary artery disease) Chronic mastoiditis of left side Chronic otitis media ED (erectile dysfunction) Enlarged prostate Epilepsy ([facility]) Headache(784.0) Headaches Hypertension Infection bone flap Morbid obesity ([facility]) Neuropathy, lower extremity Bilateral Non-melanoma skin cancer АНДРЕЙ (obstructive sleep apnea) uses C-PAP Pruritus - disorder bilateral arms, shoulders. PVC (premature ventricular contraction) 02/01/2018 Seizure ([facility]) Type 2 diabetes mellitus with other specified complication ([facility]) 02/01/2018 Weakness of left side of body x3 years following seizures. Wound infection chronic Past Surgical History: Procedure Laterality Date HX BRAIN SURGERY 09/17/11 Left temporal lobectomy for uncontrolled seizures HX MASTOIDECTOMY 12/27/11 left side; canal wall down TYMPANOPLASTY 12/27/11 CRANIECTOMY 11/05/12 Infected bone flap removal SURGERY 11/05/12 I&D of infected bone flap ANKLE ARTHROSCOPY right. APPENDECTOMY CARPAL TUNNEL RELEASE right. CATARACT REMOVAL bilateral. HX CATARACT REMOVAL HX TONSILLECTOMY ROTATOR CUFF REPAIR left shoulder. VAGAL NERVE STIMULATION Social History Substance Use Topics Smoking status: Never Smoker Smokeless tobacco: Never Used Alcohol use No Family History Problem Relation Age of Onset Other Mother family: History of heart condition, alzheimers,depression Cancer Other Heart Attack Other Depression Other Other Other Allergies: Patient has no known allergies. Scheduled Meds: allopurinol (ZYLOPRIM) tablet 100 mg 100 mg Oral QDAY amLODIPine (NORVASC) tablet 5 mg 5 mg Oral QDAY aspirin tablet 325 mg 325 mg Oral QDAY atenolol (TENORMIN) tablet 100 mg 100 mg Oral QDAY atorvastatin (LIPITOR) tablet 20 mg 20 mg Oral QHS baclofen (LIORESAL) tablet 10 mg 10 mg Oral TID bisacodyl (DULCOLAX) rectal suppository 10 mg 10 mg Rectal QDAY bumetanide (BUMEX) tablet 1 mg 1 mg Oral BID(-17) carboxymethylcellulose (REFRESH PLUS) 0.5 % ophthalmic solution 1 drop 1 drop Both Eyes QID docusate (COLACE) capsule 100 mg 100 mg Oral BID erythromycin (ROMYCIN) ophthalmic ointment 0.5 inch 0.5 inch Both Eyes QHS finasteride (PROSCAR) tablet 5 mg 5 mg Oral QDAY gabapentin (NEURONTIN) capsule 800 mg 800 mg Oral Q8H heparin (porcine) PF syringe 5,000 Units 5,000 Units Subcutaneous Q8H insulin aspart U-100 (NOVOLOG FLEXPEN) injection PEN 0-14 Units 0-14 Units Subcutaneous ACHS lidocaine (LIDODERM) 5 % topical patch 1 patch 1 patch Topical Q24H* lisinopril (PRINIVIL; ZESTRIL) tablet 20 mg 20 mg Oral QDAY loratadine (CLARITIN) tablet 10 mg 10 mg Oral QDAY milk of magnesia (CONC) oral suspension 10 mL 10 mL Oral QDAY mirtazapine (REMERON) tablet 45 mg 45 mg Oral QHS ofloxacin (FLOXIN) 0.3 % (ophthalmic for otic use) solution 4 drop 4 drop Both Ears BID pantoprazole DR (PROTONIX) tablet 40 mg 40 mg Oral QDAY(21) phenytoin SR (DILANTIN) capsule 300 mg 300 mg Oral QDAY senna/docusate (SENOKOT-S) tablet 1 tablet 1 tablet Oral BID sertraline (ZOLOFT) tablet 300 mg 300 mg Oral QDAY [START ON 02/05/2018] trimethoprim/sulfamethoxazole (BACTRIM DS) 160/800 mg tablet 1 tablet 1 tablet Oral BID Continuous Infusions: PRN and Respiratory Meds:acetaminophen Q4H PRN, docusate BID PRN, HYDROcodone/ acetaminophen Q4H PRN, nitroglycerin Q5 MIN PRN, ondansetron (ZOFRAN) IV Q6H PRN No current facility-administered medications on file prior to encounter. Current Outpatient Prescriptions on File Prior to Encounter Medication Sig Dispense Refill allopurinol (ZYLOPRIM) 100 mg tablet Take 100 mg by mouth daily. amLODIPine (NORVASC) 5 mg tablet Take 5 mg by mouth daily. atenolol (TENORMIN) 100 mg tablet Take 1 Tab by mouth daily. 30 Tab 0 baclofen (LIORESAL) 10 mg tablet Take 10 mg by mouth three times daily. finasteride (PROSCAR) 5 mg tablet TAKE 1 TABLET BY MOUTH ONCE DAILY 90 Tab 3 gabapentin (NEURONTIN) 800 mg tablet Take 1 tablet by mouth every 8 hours. 90 tablet 3 glimepiride (AMARYL) 2 mg tablet Take 2 mg by mouth twice daily. HYDROcodone/acetaminophen (NORCO) 5/325 mg tablet Take 1 tablet by mouth every 8 hours as needed for Pain 40 tablet 0 ibuprofen (MOTRIN) 600 mg tablet Take 600 mg by mouth every 12 hours as needed. lidocaine (LIDODERM) 5 % topical patch Apply 1 patch topically to affected area every 24 hours. Apply patch for 12 hours, then remove for 12 hours before repeating. 90 patch 3 lisinopril (PRINIVIL; ZESTRIL) 10 mg tablet Take 20 mg by mouth daily. loratadine (CLARITIN) 10 mg tablet Take 10 mg by mouth daily. meloxicam (MOBIC) 7.5 mg tablet Take 1 tablet by mouth daily. 90 tablet 3 metFORMIN (GLUCOPHAGE) 500 mg tablet Take 500 mg by mouth twice daily with meals. mirtazapine (REMERON) 30 mg tablet Take 1 and 1/2 tablet at night for mood, anxiety and sleep [address](+) (PRILOSEC) 20 mg capsule Take 20 mg by mouth daily. phenytoin SR (DILANTIN) 100 mg capsule Take 3 capsules by mouth daily. 270 capsule 3 potassium chloride SR (K-DUR) 20 mEq tablet Take 20 mEq by mouth daily. sertraline (ZOLOFT) 100 mg tablet Take 300mg in AM (3x 100mg) for mood, anxiety and skin picking 90 tablet 1 sitaGLIPtin (JANUVIA) 100 mg tab tablet Take 100 mg by mouth daily. torsemide(+) (DEMADEX) 20 mg tablet Take 20 mg by mouth twice daily. Review of Systems: All other systems reviewed and are negative. Vital Signs: Last Filed in 24 hours Vital Signs: 24 hour Range BP: 99/53 (02/04 1535) Temp: 36.7 C (98.1 F) (02/04 1535) Pulse: 58 (02/04 1535) Respirations: 18 PER MINUTE (02/04 1535) SpO2: 97 % (02/04 1535) O2 Delivery: None (Room Air) (02/04 1535) BP: (98-128)/(46-74) Temp: [36.3 C (97.4 F)-36.8 C (98.2 F)] Pulse: [54-66] Respirations: [16 PER MINUTE-18 PER MINUTE] SpO2: [94 %-98 %] O2 Delivery: None (Room Air) General physical exam: HEENT: normocephalic, eyes open with no discharge, nares patent, oropharynx is clear with no lesions, palate intact CV: regular rate and rhythm, no murmur, distal pulses palpable Chest: normal configuration, lungs are clear bilaterally Ab: Distended, soft, non-tender, no masses, no organomegaly Skin: Unable to appreciate the LLE swelling the patient reported, no rashes or lesions Neuro exam: Mental Status: Alert and Oriented x3, normal attention, concentration and grossly intact memory. Speech: No dysarthria, no aphasia Cranial nerves: visual jackson intact in all quadrants to finger confrontation, normal EOM movements, bilateral upper facial weakness L>R, mildly decreased nasolabial fold on the right, decreased hearing acuity on the left for finger rub, intact SCM, tongue midline. Motor: Strength: RUE: 5/5, RLE: 5/5, LUE: Significant giveaway sign in all muscle groups, LLE: Significant giveaway in all muscle groups. DTRs: 0 in BJ, TJ, BRJ, KJ, 0 AJ, plantar reposnse mute BL Sensory: Decreased sensation to pinprick on the LUE and LLE, decrease vibration on the LLE, decreased temperature sensation on the LLE and distal RLE. Coordination: Intact finger to nose test bilaterally Gait: Not tested for now Lab/Radiology/Other Diagnostic Tests: 24-hour labs: Results for orders placed or performed during the hospital encounter of (from the past 24 hour(s)) POC GLUCOSE Collection Time: 02/03/18 5:47 PM Result Value Ref Range Glucose, POC 133 (H) 70 - 100 MG/DL POC GLUCOSE Collection Time: 02/03/18 8:39 PM Result Value Ref Range Glucose, POC 225 (H) 70 - 100 MG/DL BASIC METABOLIC PANEL Collection Time: 02/04/18 4:26 AM Result Value Ref Range Sodium 137 137 - 147 MMOL/L Potassium 3.2 (L) 3.5 - 5.1 MMOL/L Chloride 105 98 - 110 MMOL/L CO2 23 21 - 30 MMOL/L Anion Gap 9 3 - 12 Glucose 198 (H) 70 - 100 MG/DL Blood Urea Nitrogen 24 7 - 25 MG/DL Creatinine 0.95 0.4 - 1.24 MG/DL Calcium 8.8 8.5 - 10.6 MG/DL eGFR Non >60 >60 mL/min eGFR >60 >60 mL/min CBC AND DIFF Collection Time: 02/04/18 4:26 AM Result Value Ref Range White Blood Cells 9.6 4.5 - 11.0 K/UL RBC 4.21 (L) 4.4 - 5.5 M/UL Hemoglobin 12.7 (L) 13.5 - 16.5 GM/DL Hematocrit 38.0 (L) 40 - 50 % MCV 90.2 80 - 100 FL MCH 30.2 26 - 34 PG MCHC 33.4 32.0 - 36.0 G/DL RDW 15.6 (H) 11 - 15 % Platelet Count 143 (L) 150 - 400 K/UL MPV 7.1 7 - 11 FL Neutrophils 58 41 - 77 % Lymphocytes 31 24 - 44 % Monocytes 7 4 - 12 % Eosinophils 3 0 - 5 % Basophils 1 0 - 2 % Absolute Neutrophil Count 5.70 1.8 - 7.0 K/UL Absolute Lymph Count 3.00 1.0 - 4.8 K/UL Absolute Monocyte Count 0.70 0 - 0.80 K/UL Absolute Eosinophil Count 0.30 0 - 0.45 K/UL Absolute Basophil Count 0.10 0 - 0.20 K/UL MAGNESIUM Collection Time: 02/04/18 4:26 AM Result Value Ref Range Magnesium 2.1 1.6 - 2.6 mg/dL PHOSPHORUS Collection Time: 02/04/18 4:26 AM Result Value Ref Range Phosphorus 4.1 (H) 2.0 - 4.0 MG/DL POC GLUCOSE Collection Time: 02/04/18 7:18 AM Result Value Ref Range Glucose, POC 150 (H) 70 - 100 MG/DL TROPONIN-I Collection Time: 02/04/18 9:37 AM Result Value Ref Range Troponin-I 0.01 0.0 - 0.05 NG/ML POTASSIUM Collection Time: 02/04/18 9:37 AM Result Value Ref Range Potassium 3.6 3.5 - 5.1 MMOL/L POC GLUCOSE Collection Time: 02/04/18 11:48 AM Result Value Ref Range Glucose, POC 150 (H) 70 - 100 MG/DL POC GLUCOSE Collection Time: 02/04/18 5:23 PM Result Value Ref Range Glucose, POC 141 (H) 70 - 100 MG/DL @[facility]@ * Otis Escobedo MD - 02/04/2018 2:12 PM SCRIPT EDITOR Associated Order(s): CONSULT ADULT PSYCHIATRY PHYSICIAN Formatting of this note may be different from the original. PSYCHIATRY CONSULT NOTE Room/Bed: [place] [address] Admission Date: 01/30/2018 LOS: 4 days Consult type: Opinion with orders Reason for Consult: Depression; SW concerned that pt might have psychosomatic symtpoms, requesting psych to be consulted Assessment: 1. 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 Excoriation (Skin-Picking) disorder 3. Bereavement 4. Dependent personality traits Recommendations: No psychotropic medication changes indicated today. 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 Will defer to primary outpatient psychiatrist Dr. Lee for further medication changes at next appt 03/06/18 Psychology consulted for coping. Patient has been unable to establish care with psychology thus far. Though daughter expresses concerns for "munchausen syndrome," patient's clinical picture is more consistent with dependent personality traits. Somatic symptom disorder is a diagnosis of exclusion and cannot be made at this time. Seen and discussed with: Dr. Diaz Please feel free to contact us with any additional questions or concerns by paging the consult team between 8am and 5pm on weekdays and between 8am and 3pm on weekends at [phone]. Otherwise, page the founder president and ceo clinical education academic coordinator. Chief Concern: "I'd like some answers" History of Present Illness: Fidel Henriquez is a 67 y.o. male with a past psychiatric history of depression and anxiety who was admitted with left sided weakness. Psych consulted for "depression." Patient was seen at bedside today and says he is feeling, "okay." He says that his main acute issue right now is that "I just want some answers. I want to know what is going on. No one seems to know anything or have any definitive answers and that is frustrating." He says that his depression and anxiety have been well controlled, in his opinion. He denies acute changes in sleep, concentration, or thoughts of /dying. He endorses chronically poor energy and anhedonia since the passing of his almost 3 years ago. His daughter (who is in the room during this encounter) says that his appetite is very poor and patient "only eats when someone makes sure he finishes his meal." He says that he still ruminates about the passing of his and being abandoned by his mother previously. He denies periods of jaime or psychosis. He denies SI, HI, and AVH today. He says that he has been completely compliant with all of his psychotropic medications. He says that he still struggles with skin picking and finds himself picking at the skin on his legs even without noticing. Access to firearms? Denies; Wants to buy a gun "before they change the laws," but has not done so yet Past Psychiatric History: - Current psychiatrist: Dr. Lee (). Next appt 03/06/18 - Previous admissions: Multiple - Previous meds: Celexa, Abilify, Xanax, Belsomra, Roserem - Current meds: gabapentin 800mg TID, Remeron 45mg qhs, Zoloft 300mg qam - Previous suicide attempts: "Multiple" ; once via overdose, once via jumping off bridge Family Psychiatric History: - Brother committed suicide (shot himself, 2015) - Mother with heavy alcohol use - Daughter with depression, suicide attempt Substance Use: - Tobacco: Denies - Alcohol: Denies current use; previous hx of heavy use - Illicit Drugs: Denies Psychosocial/Substance History: - Born in [place], [place]. Daughter says he was abandoned at a bar by his mother when he was a child, then put into foster care. Grew up in an orphanage before being adopted. Currently lives alone in [place], [place]. 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 previously, but almost 3 years ago (January 2015). Two adult children. Social History Social History Marital status: Spouse name: [facility] Number of children: N/A Years of education: N/A Occupational History Disabled Social History Main Topics Smoking status: Never Smoker Smokeless tobacco: Never Used Alcohol use No Drug use: No Sexual activity: Not Currently Partners: Female Other Topics Concern Service Yes Caffeine Concern No Sleep Concern No C-Pap for apnea Social History Narrative No narrative on file Past Medical/Surgical History: Past Medical History: Diagnosis Date Acute myocardial infarction, unspecified site 1979 Arthritis Attempted suicide ([facility]) 2004 Overdose CAD (coronary artery disease) Chronic mastoiditis of left side Chronic otitis media ED (erectile dysfunction) Enlarged prostate Epilepsy ([facility]) Headache(784.0) Headaches Hypertension Infection bone flap Morbid obesity ([facility]) Neuropathy, lower extremity Bilateral Non-melanoma skin cancer АНДРЕЙ (obstructive sleep apnea) uses C-PAP Pruritus - disorder bilateral arms, shoulders. PVC (premature ventricular contraction) 02/01/2018 Seizure ([facility]) Type 2 diabetes mellitus with other specified complication ([facility]) 02/01/2018 Weakness of left side of body x3 years following seizures. Wound infection chronic : Past Surgical History: Procedure Laterality Date HX BRAIN SURGERY 09/17/11 Left temporal lobectomy for uncontrolled seizures HX MASTOIDECTOMY 12/27/11 left side; canal wall down TYMPANOPLASTY 12/27/11 CRANIECTOMY 11/05/12 Infected bone flap removal SURGERY 11/05/12 I&D of infected bone flap ANKLE ARTHROSCOPY right. APPENDECTOMY CARPAL TUNNEL RELEASE right. CATARACT REMOVAL bilateral. HX CATARACT REMOVAL HX TONSILLECTOMY ROTATOR CUFF REPAIR left shoulder. VAGAL NERVE STIMULATION : Home Medications: Prescriptions Prior to Admission Medication Sig Dispense Refill Last Dose allopurinol (ZYLOPRIM) 100 mg tablet Take 100 mg by mouth daily. 01/30/2018 amLODIPine (NORVASC) 5 mg tablet Take 5 mg by mouth daily. not taking atenolol (TENORMIN) 100 mg tablet Take 1 Tab by mouth daily. 30 Tab 0 2017 baclofen (LIORESAL) 10 mg tablet Take 10 mg by mouth three times daily. 01/30/2018 dapagliflozin 10 mg tab Take 1 tablet by mouth daily. 01/30/2018 finasteride (PROSCAR) 5 mg tablet TAKE 1 TABLET BY MOUTH ONCE DAILY 90 Tab 3 01/30/2018 gabapentin (NEURONTIN) 800 mg tablet Take 1 tablet by mouth every 8 hours. 90 tablet 3 01/30/2018 glimepiride (AMARYL) 2 mg tablet Take 2 mg by mouth twice daily. 01/30/2018 HYDROcodone/acetaminophen (NORCO) 5/325 mg tablet Take 1 tablet by mouth every 8 hours as needed for Pain 40 tablet 0 Taking ibuprofen (MOTRIN) 600 mg tablet Take 600 mg by mouth every 12 hours as needed. 01/30/2018 lidocaine (LIDODERM) 5 % topical patch Apply 1 patch topically to affected area every 24 hours. Apply patch for 12 hours, then remove for 12 hours before repeating. 90 patch 3 01/30/2018 lisinopril (PRINIVIL; ZESTRIL) 10 mg tablet Take 20 mg by mouth daily. 01/30 loratadine (CLARITIN) 10 mg tablet Take 10 mg by mouth daily. 01/30/2018 meloxicam (MOBIC) 7.5 mg tablet Take 1 tablet by mouth daily. 90 tablet 3 01/30/2018 metFORMIN (GLUCOPHAGE) 500 mg tablet Take 500 mg by mouth twice daily with meals. 01/30/2018 mirtazapine (REMERON) 30 mg tablet Take 1 and 1/2 tablet at night for mood, anxiety and sleep 45 tablet 1 01/30/[address](+) (PRILOSEC) 20 mg capsule Take 20 mg by mouth daily. 2017 phenytoin SR (DILANTIN) 100 mg capsule Take 3 capsules by mouth daily. 270 capsule 3 01/30/2018 potassium chloride SR (K-DUR) 20 mEq tablet Take 20 mEq by mouth daily. 01/30/2018 sertraline (ZOLOFT) 100 mg tablet Take 300mg in AM (3x 100mg) for mood, anxiety and skin picking 90 tablet 1 01/30/2018 sitaGLIPtin (JANUVIA) 100 mg tab tablet Take 100 mg by mouth daily. 2017 torsemide(+) (DEMADEX) 20 mg tablet Take 20 mg by mouth twice daily. 2017 Hospital Medications: Scheduled Meds: allopurinol (ZYLOPRIM) tablet 100 mg 100 mg Oral QDAY amLODIPine (NORVASC) tablet 5 mg 5 mg Oral QDAY aspirin tablet 325 mg 325 mg Oral QDAY atenolol (TENORMIN) tablet 100 mg 100 mg Oral QDAY atorvastatin (LIPITOR) tablet 20 mg 20 mg Oral QHS baclofen (LIORESAL) tablet 10 mg 10 mg Oral TID bisacodyl (DULCOLAX) rectal suppository 10 mg 10 mg Rectal QDAY bumetanide (BUMEX) tablet 1 mg 1 mg Oral BID(9-17) carboxymethylcellulose (REFRESH PLUS) 0.5 % ophthalmic solution 1 drop 1 drop Both Eyes QID docusate (COLACE) capsule 100 mg 100 mg Oral BID erythromycin (ROMYCIN) ophthalmic ointment 0.5 inch 0.5 inch Both Eyes QHS finasteride (PROSCAR) tablet 5 mg 5 mg Oral QDAY gabapentin (NEURONTIN) capsule 800 mg 800 mg Oral Q8H heparin (porcine) PF syringe 5,000 Units 5,000 Units Subcutaneous Q8H insulin aspart U-100 (NOVOLOG FLEXPEN) injection PEN 0-14 Units 0-14 Units Subcutaneous ACHS lidocaine (LIDODERM) 5 % topical patch 1 patch 1 patch Topical Q24H* lisinopril (PRINIVIL; ZESTRIL) tablet 20 mg 20 mg Oral QDAY loratadine (CLARITIN) tablet 10 mg 10 mg Oral QDAY milk of magnesia (CONC) oral suspension 10 mL 10 mL Oral QDAY mirtazapine (REMERON) tablet 45 mg 45 mg Oral QHS ofloxacin (FLOXIN) 0.3 % (ophthalmic for otic use) solution 4 drop 4 drop Both Ears BID pantoprazole DR (PROTONIX) tablet 40 mg 40 mg Oral QDAY(21) phenytoin SR (DILANTIN) capsule 300 mg 300 mg Oral QDAY senna/docusate (SENOKOT-S) tablet 1 tablet 1 tablet Oral BID sertraline (ZOLOFT) tablet 300 mg 300 mg Oral QDAY [START ON 02/05/2018] trimethoprim/sulfamethoxazole (BACTRIM DS) 160/800 mg tablet 1 tablet 1 tablet Oral BID Continuous Infusions: PRN and Respiratory Meds:acetaminophen Q4H PRN, docusate BID PRN, HYDROcodone/ acetaminophen Q4H PRN, nitroglycerin Q5 MIN PRN, ondansetron (ZOFRAN) IV Q6H PRN : Allergies: Patient has no known allergies. Review of Systems: A 14 point review of systems was negative except for: Neurological: positive for headaches and weakness Vital Signs: Last Filed in 24 hours Vital Signs: 24 hour Range BP: 118/66 (02/05 1012) Temp: 36.8 C (98.2 F) (02/05 1012) Pulse: 57 (02/05 1012) Respirations: 18 PER MINUTE (02/05 1012) SpO2: 95 % (02/05 1012) O2 Delivery: None (Room Air) (02/05 1012) BP: (98-128)/(46-74) Temp: [36.3 C (97.4 F)-36.8 C (98.2 F)] Pulse: [54-66] Respirations: [16 PER MINUTE-18 PER MINUTE] SpO2: [94 %-98 %] O2 Delivery: None (Room Air) MENTAL STATUS EXAMINATION General/Constitutional: obese, appears stated age, dressed in hospital scrubs, fair grooming Eye Contact: good Behavior: Calm, cooperative; appropriate for conversation Speech: RRR with normal volume and tone. Good articulation Mood: "OK" Affect: Hypothymic ; mood congruent Thought Process: Linear and goal directed Thought Content: denies SI, HI. No evidence of delusions Perception: Denies AVH Associations: Intact Insight/Judgment: fair/fair Orientation: AAOx3 (name/year/location) Recent and remote memory: grossly intact Attention span and concentration: appropriate for conversation Cognition: average Language: german, fluent Fund of knowledge and vocabulary: average Physical Exam: Neuro: No gross neurologic deficits. Left eye with gross edema Musculoskeletal: Moves all four extremities spontaneously Lab/Radiology/Other Diagnostic Tests: 24-hour labs: Results for orders placed or performed during the hospital encounter of (from the past 24 hour(s)) POC GLUCOSE Collection Time: 02/03/18 5:47 PM Result Value Ref Range Glucose, POC 133 (H) 70 - 100 MG/DL POC GLUCOSE Collection Time: 02/03/18 8:39 PM Result Value Ref Range Glucose, POC 225 (H) 70 - 100 MG/DL BASIC METABOLIC PANEL Collection Time: 02/04/18 4:26 AM Result Value Ref Range Sodium 137 137 - 147 MMOL/L Potassium 3.2 (L) 3.5 - 5.1 MMOL/L Chloride 105 98 - 110 MMOL/L CO2 23 21 - 30 MMOL/L Anion Gap 9 3 - 12 Glucose 198 (H) 70 - 100 MG/DL Blood Urea Nitrogen 24 7 - 25 MG/DL Creatinine 0.95 0.4 - 1.24 MG/DL Calcium 8.8 8.5 - 10.6 MG/DL eGFR Non >60 >60 mL/min eGFR >60 >60 mL/min CBC AND DIFF Collection Time: 02/04/18 4:26 AM Result Value Ref Range White Blood Cells 9.6 4.5 - 11.0 K/UL RBC 4.21 (L) 4.4 - 5.5 M/UL Hemoglobin 12.7 (L) 13.5 - 16.5 GM/DL Hematocrit 38.0 (L) 40 - 50 % MCV 90.2 80 - 100 FL MCH 30.2 26 - 34 PG MCHC 33.4 32.0 - 36.0 G/DL RDW 15.6 (H) 11 - 15 % Platelet Count 143 (L) 150 - 400 K/UL MPV 7.1 7 - 11 FL Neutrophils 58 41 - 77 % Lymphocytes 31 24 - 44 % Monocytes 7 4 - 12 % Eosinophils 3 0 - 5 % Basophils 1 0 - 2 % Absolute Neutrophil Count 5.70 1.8 - 7.0 K/UL Absolute Lymph Count 3.00 1.0 - 4.8 K/UL Absolute Monocyte Count 0.70 0 - 0.80 K/UL Absolute Eosinophil Count 0.30 0 - 0.45 K/UL Absolute Basophil Count 0.10 0 - 0.20 K/UL MAGNESIUM Collection Time: 02/04/18 4:26 AM Result Value Ref Range Magnesium 2.1 1.6 - 2.6 mg/dL PHOSPHORUS Collection Time: 02/04/18 4:26 AM Result Value Ref Range Phosphorus 4.1 (H) 2.0 - 4.0 MG/DL POC GLUCOSE Collection Time: 02/04/18 7:18 AM Result Value Ref Range Glucose, POC 150 (H) 70 - 100 MG/DL TROPONIN-I Collection Time: 02/04/18 9:37 AM Result Value Ref Range Troponin-I 0.01 0.0 - 0.05 NG/ML POTASSIUM Collection Time: 02/04/18 9:37 AM Result Value Ref Range Potassium 3.6 3.5 - 5.1 MMOL/L POC GLUCOSE Collection Time: 02/04/18 11:48 AM Result Value Ref Range Glucose, POC 150 (H) 70 - 100 MG/DL Otis Escobedo MD Associated attestation - Kristi Diaz MD - 02/04/2018 8:38 PM SCRIPT EDITOR Formatting of this note may be different from the original. ATTESTATION I personally performed the byrne portions of the E/M visit, discussed the case with the resident and concur with resident documentation of history, physical exam, assessment, and treatment plan unless otherwise noted. I personally participated in development of the plan of care. Please feel free to contact us with any additional questions or concerns by paging the consult team between 8am and 5pm on weekdays and between 8am and 3pm on weekends [phone]. Otherwise, page the founder president and ceo clinical education academic coordinator. Staff name: Kristi Diaz MD Date: 02/04/2018 * France Crawford APRN - 02/04/2018 1:20 PM SCRIPT EDITOR Associated Order(s): CONSULT CARDIOLOGY PHYSICIAN Formatting of this note may be different from the original. Cardiology Consult Note Admission Date: 01/30/2018 Assessment/Plan: Fidel Henriquez is a 67 y.o. 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 who was transferred from an outside hospital to the neuro ICU for slurred speech and facial asymmetry. 1. Chest pain -CP atypical but certainly has risk factors -Pain has been mostly constant since admission. Some CP is reproducible with palpation, other times pt reports pain on palpation is different than the feeling that someone is sitting on his chest. No radiation, no nausea, no diaphoresis -Serial troponins negative on 01/30-01/31. Today's trop is negative -Echo EF 50-55%, mild concentric LVH, no pericardial effusion, mild AI -Pt reports history of "small" ID, unable to explain details, Denies history of cardiac cath or PCI. Uncertain if he has had a stress test in the past -02/04 EKG showing NSR w/ ventricular bigeminy 2. PVCs -ASPHALT ROLLER OPERATOR Atenolol 100mg daily 3. Hypertension -ASPHALT ROLLER OPERATOR Atenolol 100mg daily, Norvasc 5mg, Lisinopril 20mg daily, Torsemide 20mg BID 4. DM2 -No ASPHALT ROLLER OPERATOR statin 5. Obesity 6. Bradycardia > not true bradycardia -per staff, bedside O2 monitor is occasionally ready HR as low as 29bpm. -has not been on telemetry, nursing connected to tele this morning -suspect O2 monitor is not picking up PVCs and therefore is reading heart rates low -telemetry showing HRs 59-60bpm with frequent PVCs and ventricular bigeminy. Recommendations -no true bradycardia > low heart rates per bedside O2 monitor is not picking up PVCs and therefore reading as low HR -telemetry confirms no significant sinus bradycardia. Only SR w/ rates ^50s and 60s with frequent PVCs and ventricular bigeminy -K 3.6 on rerun (3.2 this morning treated with K-dur 40mEq). Will give another dose of K-Dur 40mEq -Continue to monitor K+ and Mg++ and replete to keep greater than or equal to 4.0 and 2.0, respectively -Regadenoson thallium tomorrow morning (ordered). NPO after midnight. No caffiene. -agree with initiation of atorvastatin, goal LDL < 70 France Crawford, RN RADIATION 148 Reason for consult: Chest pain History of Present Illness: Fidel Henriquez is a 67 y.o. 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 who was transferred from an outside hospital to the neuro ICU for slurred speech and facial asymmetry. He is being evaluated for mastoiditis and stroke. He complained of chest pain on 01/30 which prompted an urgent CV consult. CV signed off on 02/01 after serial troponins were negative and echo was WNL. Chest pain was deemed atypical and reproducible with palpation. Nursing reported bedside O2 sat continuous monitor was showing heart rates dipping as low as 29bpm. Pt also continues to complain of chest pain and dyspnea. Cardiology reconsulted. SH: Denies any smoking history FH: he is adopted and does not know his family history Past Medical History: Past Medical History: Diagnosis Date Acute myocardial infarction, unspecified site 1979 Arthritis Attempted suicide ([facility]) 2004 Overdose CAD (coronary artery disease) Chronic mastoiditis of left side Chronic otitis media ED (erectile dysfunction) Enlarged prostate Epilepsy (HCC) Headache(784.0) Headaches Hypertension Infection bone flap Morbid obesity (HCC) Neuropathy, lower extremity Bilateral Non-melanoma skin cancer АНДРЕЙ (obstructive sleep apnea) uses C-PAP Pruritus - disorder bilateral arms, shoulders. PVC (premature ventricular contraction) 02/01/2018 Seizure ([facility]) Type 2 diabetes mellitus with other specified complication ([facility]) 02/01/2018 Weakness of left side of body x3 years following seizures. Wound infection chronic Medications: Prescriptions Prior to Admission Medication Sig allopurinol (ZYLOPRIM) 100 mg tablet Take 100 mg by mouth daily. amLODIPine (NORVASC) 5 mg tablet Take 5 mg by mouth daily. atenolol (TENORMIN) 100 mg tablet Take 1 Tab by mouth daily. baclofen (LIORESAL) 10 mg tablet Take 10 mg by mouth three times daily. dapagliflozin 10 mg tab Take 1 tablet by mouth daily. docusate (COLACE) 100 mg capsule Take 1 Cap by mouth twice daily as needed for Constipation. empagliflozin (JARDIANCE) 25 mg tab Take 25 mg by mouth daily. finasteride (PROSCAR) 5 mg tablet TAKE 1 TABLET BY MOUTH ONCE DAILY gabapentin (NEURONTIN) 800 mg tablet Take 1 tablet by mouth every 8 hours. glimepiride (AMARYL) 2 mg tablet Take 2 mg by mouth twice daily. HYDROcodone/acetaminophen (NORCO) 5/325 mg tablet Take 1 tablet by mouth every 8 hours as needed for Pain ibuprofen (MOTRIN) 600 mg tablet Take 600 mg by mouth every 12 hours as needed. lidocaine (LIDODERM) 5 % topical patch Apply 1 patch topically to affected area every 24 hours. Apply patch for 12 hours, then remove for 12 hours before repeating. lisinopril (PRINIVIL; ZESTRIL) 10 mg tablet Take 20 mg by mouth daily. loratadine (CLARITIN) 10 mg tablet Take 10 mg by mouth daily. meloxicam (MOBIC) 7.5 mg tablet Take 1 tablet by mouth daily. metFORMIN (GLUCOPHAGE) 500 mg tablet Take 500 mg by mouth twice daily with meals. mirtazapine (REMERON) 30 mg tablet Take 1 and 1/2 tablet at night for mood, anxiety and sleep omeprazole DR(+) (PRILOSEC) 20 mg capsule Take 20 mg by mouth daily. phenytoin SR (DILANTIN) 100 mg capsule Take 3 capsules by mouth daily. potassium chloride SR (K-DUR) 20 mEq tablet Take 20 mEq by mouth daily. sertraline (ZOLOFT) 100 mg tablet Take 300mg in AM (3x 100mg) for mood, anxiety and skin picking sitaGLIPtin (JANUVIA) 100 mg tab tablet Take 100 mg by mouth daily. torsemide(+) (DEMADEX) 20 mg tablet Take 20 mg by mouth twice daily. VIAGRA 100 mg tablet Take 1 Tab by mouth as Needed for Erectile dysfunction. Take on empty stomach approx 1-4 hrs prior to sexual activity. Allergies: Patient has no known allergies. Past Surgical History: Past Surgical History: Procedure Laterality Date HX BRAIN SURGERY 09/17/11 Left temporal lobectomy for uncontrolled seizures HX MASTOIDECTOMY 12/27/11 left side; canal wall down TYMPANOPLASTY 12/27/11 CRANIECTOMY 11/05/12 Infected bone flap removal SURGERY 11/05/12 I&D of infected bone flap ANKLE ARTHROSCOPY right. APPENDECTOMY CARPAL TUNNEL RELEASE right. CATARACT REMOVAL bilateral. HX CATARACT REMOVAL HX TONSILLECTOMY ROTATOR CUFF REPAIR left shoulder. VAGAL NERVE STIMULATION Family History: Family History Problem Relation Age of Onset Other Mother family: History of heart condition, alzheimers,depression Cancer Other Heart Attack Other Depression Other Other Other Social History: Social History Substance Use Topics Smoking status: Never Smoker Smokeless tobacco: Never Used Alcohol use No Review of Systems: General: negative/normal. Eyes: negative/normal. Ears/Nose/Throat: left facial swelling Cardiovascular: chest pain/pressure; occasional fluttering, fast HR (at home) Respiratory: dyspnea Gastrointestinal: negative/normal. Genitourinary: negative/normal. Musculoskeletal: negative/normal. Skin: wound covered by dressing on RLE Neurologic: as above Psychiatric: negative/normal. Endocrine: diabetes Heme/Lymphatic: negative/normal. Physical Exam: Vital Signs BP: 110/59 (02/04 719) Temp: 36.4 C (97.5 F) (02/04 719) Pulse: 54 (02/04 719) Respirations: 18 PER MINUTE (02/04 719) SpO2: 97 % (02/04 719) O2 Delivery: CPAP/BiPAP (Pt Owned) (02/04 719) General: awake & oriented, no acute distress Eyes: non-icteric, clear conjunctivae, PERRL Mouth: moist mucus membranes, clear posterior oropharynx, raspy voice Neck: supple, no lymphadenopathy, no carotid bruits, no JVD CV: regular rate, normal rhythm, normal S1/S2, no murmurs, rubs, gallops, or clicks Lungs: clear to ausculation bilaterally, no wheezes/rhonchi/crackles Abdomen: normoactive bowel sounds, soft, non-tender, non-distended Extremities: No clubbing, cyanosis, or edema. Wound on RLE covered by dressing Neuro: moves all 4 extremities Lab/Radiology/Other Diagnostic Tests: Hematology: Lab Results Component Value Date HGB 12.7 02/04/2018 HCT 38.0 02/04/2018 PLTCT 143 02/04/2018 WBC 9.6 02/04/2018 NEUT 58 02/04/2018 ANC 5.70 02/04/2018 ALC 3.00 02/04/2018 MARGARITA 7 02/04/2018 AMC 0.70 02/04/2018 ABC 0.10 02/04/2018 MCV 90.2 02/04/2018 MCHC 33.4 02/04/2018 MPV 7.1 02/04/2018 RDW 15.6 02/04/2018 , Coagulation: Lab Results Component Value Date PT 11.8 02/07/2008 PTT 28.9 01/30/2018 INR 1.1 01/30/2018 and General Chemistry: Lab Results Component Value Date NA 137 02/04/2018 K 3.2 02/04/2018 CL 105 02/04/2018 GAP 9 02/04/2018 BUN 24 02/04/2018 CR 0.95 02/04/2018 GLU 198 02/04/2018 GLU 79 12/05/2005 CA 8.8 02/04/2018 ALBUMIN 3.3 02/01/2018 LACTIC 0.9 01/31/2018 OBSCA 1.16 02/03/2018 MG 2.1 02/04/2018 TOTBILI 0.3 07/07/2013 Radiology: Pertinent radiology reviewed EKG: NSR, 1st degree AVB, Nonspecific IVCD, ventricular bigeminy, 67bpm Tele: currently not on telemetry, no data to review Associated attestation - Gerry Mccoy MD - 02/04/2018 3:57 PM SCRIPT EDITOR Mr. Henriquez is a very pleasant 67-year-old male with a history of Baastrup disease, partial epilepsy and craniotomy, chronic mastoiditis, type 2 diabetes mellitus as well as hypertension. Patient was admitted to neurology service for slurred speech and facial asymmetry. He was complaining of chest pain for which cardiology was consulted. He underwent echocardiogram demonstrating ejection fraction of 50-55% and mild aortic regurgitation. Cardiac enzymes were negative last week. He continued to have off-and-on chest pain again and cardiology was consulted. Patient complains of pressure in the chest for about 2 months prior to admission which is nonradiating but does get worse when he takes deep breath. It mostly occurs while he is resting and is not associated with sweating or nausea. Patient heart rate was noted to be in 30s range on a blood pressure monitor yesterday. He was placed on telemetry which demonstrated ventricular bigeminy which was noted on ECG as well. He denies any dizziness or lightheadedness unless he is taking deep breaths. GEN: no acute distress HEENT: unremarkable CHEST: CTA CV: Reg rhythm, nml rate; nml S1 & S2, no S3 or S4; no rub; no murmurs EXT: no pedal edema NEURO: nonfocal Assessment and plan: 1. Chest pain: Chest pain appears atypical but he does have multiple coronary risk factors including diabetes and hypertension. He was noted to have ventricular bigeminy on EKG and telemetry. He reports chest pain as a chest pressure like some but he sitting on the chest but no other associated findings. We will schedule him for regadenoson on stress thallium study tomorrow. Continue aspirin, however dose can be decreased to 81 mg daily from cardiac standpoint Considering history of diabetes, start Lipitor 20 mg daily. Keep potassium over 4 and magnesium over 2 in light of ventricular bigeminy. Continue with the atenolol. Patient heart rate was slow on O2 monitor but on telemetry heart rate has been in upper 50s-60s range. Heart rate may not be accurate on O2 monitor because of ventricular bigeminy. * Adrián Lorenzo MD - 02/03/2018 10:19 AM SCRIPT EDITOR Associated Order(s): CONSULT REHABILITATION MEDICINE PHYSICIAN Formatting of this note may be different from the original. Physical Medicine & Rehabilitation Consult Note Date of Service: 02/03/2018 Fidel Henriquez is a 67 y.o. male. : 1950 Primary Insurance: MEDICARE Secondary Insurance: [facility] MEDICA[facility] [place] Tertiary Insurance: Financial Class: Medicare Date of Admission: 01/30/2018 Referring Physician: Siddharth Ponce MD Reason for Consult: evaluate for Post-Acute Rehab/Placement Precautions: Fall Weight bearing Precautions: Active Problems Baastrup's disease Epilepsy s/o lobectomy Chronic mastoiditis DM2 Obesity HTN Assessment & Plan Fidel Henriquez is a 67 y.o. male admitted to [facility] on 01/30/2018 with the following issues: Stroke like symptoms- hygroma Impairments: pain, poor activity tolerance, sensory loss and weakness Activity Limitations: grooming, dressing - lower, toileting, transfers, ambulation and stairs Participation Restrictions: unable to return home safely Post-acute care rehabilitation needs: acute inpatient rehabilitation Patient certainly has therapeutic goals and medical complexity warranting IPR. Will continue to follow to see what diagnosis results from ongoing work up in order to better provide Rehab needs. Goals & Barriers Family / Patient Goals: return home to previous level of function Mobility Goals: Overall goal is Supervision Stand by assistance Activities of Daily Living (ADLs) Goals: Overall goal is Supervision Stand by assistance Cognition / Communication Goals: Speech therapy will evaluate and treat cognition and communication deficits and assess for safe swallow Barriers: Functioning at wheelchair level, High burden of care, Home accessibility and Medical complexity Facilitators: patient motivation Rehabilitation Prognosis: Fair Tolerance for three hours of therapy a day: Fair Other Recommendations: Cognition: INSULATION INSTALLER to evaluate and manage cognitive deficits. Dysphagia: INSULATION INSTALLER following, patient most recently advanced to full liquid diet. Pain: Pain currently treated with Oxycodone 5-10mg PO Q4h prn. Patient would benefit from pre-treatment of pain prior to therapies and possibly scheduling Tylenol 650mg-1g TID while awake for improved pain and function (If LFT is WNL) Bowel: Last BM documented 01/30/18. Agree with bowel regimen given immobility and while on opiate pain medications. Bladder: Voiding independently Skin/MSK: Given relative immobility and/or risk for contractures and skin breakdown, continue passive range of motion ~twice daily (partially performed by therapists), progressing as able to active range of motion, and functional activities. Recommend HOB > 30 degrees to reduce shearing, turning Q2 hours while supine in bed, pressure relief [id number] in seated position, PRAFOs for pressure relief and to prevent contractures Patient was seen and discussed with Attending Physician, Dr. Lorenzo. Jose Torres MD Rehab Consult Pager: [phone] Rehabilitation Medicine Attending Physician Attestation: Agree with resident. Fidel Henriquez is a pleasant 67 y.o. male with PMH of morbid obesity, epilepsy s/p previous lobectomy in 2010, who has experienced progressively worsening left sided weakness, swelling, and facial pain and swelling. He was admitted and has undergone work-up, without notable evidence of cerebral infarct thus far and notable unrevealing MRI Head (no acute findings ). ENT was consulted and noted left otitis externa/media with possible mastoiditis, and Ophthalmology was consulted and noted left macular hole and bilateral blepharitis. NS team continues to co-manage with work-up including LP. While clear reasoning for new symptoms of left hemiparesis, edema, overall weakness, with resulting significant functional (and cognitive) deficits as noted. He seems to have medical complexity and goals with PT and OT (and may benefit from cognitive eval by INSULATION INSTALLER at this/next level of care) for acute inpatient rehabilitation. Recommend continued therapies, while the primary team manages the patient. Discussed case with the patient and his friend. Also discussed with our sales and marketing coordinator and primary SWCM, and the patient's initial preference is for [facility]. Will continue to follow. Thank you for this consultation. Please call with questions/concerns. I personally performed byrne portions of the history and exam. I discussed the case with the resident and concur with the resident's documentation of history, physical assessment and treatment plan unless otherwise noted. Adrián Lorenzo MD History of Present Illness Hospital Course: 67 y.o. 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 who was transferred from an outside hospital to the neuro ICU for slurred speech and facial asymmetry. He is being evaluated for mastoiditis and stroke. He is also complaining of chest pain which is prompting urgent cardiology consult. Negative for stroke 01/31. LP /- non conclusive. Past Medical History Past Medical History: Diagnosis Date Acute myocardial infarction, unspecified site 1979 Arthritis Attempted suicide (HCC) 2004 Overdose CAD (coronary artery disease) Chronic mastoiditis of left side Chronic otitis media ED (erectile dysfunction) Enlarged prostate Epilepsy (HCC) Headache(784.0) Headaches Hypertension Infection bone flap Morbid obesity (HCC) Neuropathy, lower extremity Bilateral Non-melanoma skin cancer АНДРЕЙ (obstructive sleep apnea) uses C-PAP Pruritus - disorder bilateral arms, shoulders. PVC (premature ventricular contraction) 02/01/2018 Seizure ([facility]) Type 2 diabetes mellitus with other specified complication ([facility]) 02/01/2018 Weakness of left side of body x3 years following seizures. Wound infection chronic Past Surgical History Past Surgical History: Procedure Laterality Date HX BRAIN SURGERY 09/17/11 Left temporal lobectomy for uncontrolled seizures HX MASTOIDECTOMY 12/27/11 left side; canal wall down TYMPANOPLASTY 12/27/11 CRANIECTOMY 11/05/12 Infected bone flap removal SURGERY 11/05/12 I&D of infected bone flap ANKLE ARTHROSCOPY right. APPENDECTOMY CARPAL TUNNEL RELEASE right. CATARACT REMOVAL bilateral. HX CATARACT REMOVAL HX TONSILLECTOMY ROTATOR CUFF REPAIR left shoulder. VAGAL NERVE STIMULATION Family\\Social History Social History Social History Marital status: Spouse name: Tonya Number of children: N/A Years of education: N/A Occupational History Disabled Social History Main Topics Smoking status: Never Smoker Smokeless tobacco: Never Used Alcohol use No Drug use: No Sexual activity: Not Currently Partners: Female Other Topics Concern Service Yes Caffeine Concern No Sleep Concern No C-Pap for apnea Social History Narrative No narrative on file Family History Problem Relation Age of Onset Other Mother family: History of heart condition, alzheimers,depression Cancer Other Heart Attack Other Depression Other Other Other Medications: allopurinol (ZYLOPRIM) tablet 100 mg 100 mg Oral QDAY amLODIPine (NORVASC) tablet 5 mg 5 mg Oral QDAY aspirin tablet 325 mg 325 mg Oral QDAY atenolol (TENORMIN) tablet 100 mg 100 mg Oral QDAY atorvastatin (LIPITOR) tablet 20 mg 20 mg Oral QHS baclofen (LIORESAL) tablet 10 mg 10 mg Oral TID bisacodyl (DULCOLAX) rectal suppository 10 mg 10 mg Rectal QDAY bumetanide (BUMEX) tablet 1 mg 1 mg Oral BID(9-17) carboxymethylcellulose (REFRESH PLUS) 0.5 % ophthalmic solution 1 drop 1 drop Both Eyes QID cefTRIAXone (ROCEPHIN) IVP 1 g 1 g Intravenous Q24H* docusate (COLACE) capsule 100 mg 100 mg Oral BID erythromycin (ROMYCIN) ophthalmic ointment 0.5 inch 0.5 inch Both Eyes QHS finasteride (PROSCAR) tablet 5 mg 5 mg Oral QDAY gabapentin (NEURONTIN) capsule 800 mg 800 mg Oral Q8H heparin (porcine) PF syringe 5,000 Units 5,000 Units Subcutaneous Q8H insulin aspart U-100 (NOVOLOG FLEXPEN) injection PEN 0-14 Units 0-14 Units Subcutaneous ACHS lidocaine (LIDODERM) 5 % topical patch 1 patch 1 patch Topical Q24H* lisinopril (PRINIVIL; ZESTRIL) tablet 20 mg 20 mg Oral QDAY loratadine (CLARITIN) tablet 10 mg 10 mg Oral QDAY milk of magnesia (CONC) oral suspension 10 mL 10 mL Oral QDAY mirtazapine (REMERON) tablet 45 mg 45 mg Oral QHS ofloxacin (FLOXIN) 0.3 % (ophthalmic for otic use) solution 4 drop 4 drop Both Ears BID pantoprazole DR (PROTONIX) tablet 40 mg 40 mg Oral QDAY(21) phenytoin SR (DILANTIN) capsule 300 mg 300 mg Oral QDAY senna/docusate (SENOKOT-S) tablet 1 tablet 1 tablet Oral BID sertraline (ZOLOFT) tablet 300 mg 300 mg Oral QDAY PRN Medications: acetaminophen Q4H PRN, docusate BID PRN, HYDROcodone/acetaminophen Q4H PRN, nitroglycerin Q5 MIN PRN, ondansetron (ZOFRAN) IV Q6H PRN Allergies: No Known Allergies Prior Level of Function Self-Care/ADLs: Needing assistance for IADL;s Mobility: Independent functional transfers - mod I use of SPC Work/Personal Responsibilities/Hobbies: Lives in jail independent apartments- has assistence with IADL's. Home Environment: Home Situation: Lives Alone (02/03/2018 12:00 PM) Patient Owned Equipment: Single Point Cane (02/03/2018 12:00 PM) Type of Home: Apartment (independent living) (02/03/2018 12:00 PM) Entry Stairs: No Stairs (02/03/2018 12:00 PM) In-Home Stairs: No Stairs (02/03/2018 12:00 PM) Comments: Per patient's daughter, patient lives in a retired living community. Patient's daughter and additional medication care manager come to house to assist with IADLs and supervision for safety during ADLs. Patient has history of falls. Per daughter, patient appears to have difficulty performing ADLs.. Per daughters reports, patient had bilateral leg braces that he wore starting in 2011. Did not need them anymore in the past year. (02/03/2018 12:00 PM) No Data Recorded Current Level of Function Current Level Of Function: PT Gait:Gait Distance: 5 feet (2 + 3 + 5) Gait: Assistance Level: Maximal Assist , x2 People (3rd person for safty considerations. ) Gait: Assistive Device: ( [place] Tram ) Bed Mobility/Transfers Bed Mobility: Supine to Sit: Minimal Assist (with log roll ) Bed Mobility: Sit to Supine: Minimal Assist, x2 People, Assist with B LE, Assist with Trunk Comments: Patient tolerated sitting edge of bed with standby assist Transfer Type: Sit to Stand Transfer: Assistance Level: To/From, Bed, Moderate Assist, x2 People Transfer: Assistive Device: Hand Hold Assist Transfers: Type Of Assistance: Verbal Cues, Knees(s) Blocked, For Balance, For Strength Deficit, For Safety Considerations Other Transfer Type: Mechanical Lift (sit to stand lift ) Other Transfer: Assistance Level: From, Bed, To, Bed Side Chair Other Transfer: Type Of Assistance: For Strength Deficit, For Safety Considerations End Of Activity Status: Up in Chair, Nursing Notified, Instructed Patient to Request Assist with Mobility, Instructed Patient to Use Call Light Comments: sit to stand 3 additional times in [place] Tram. Used sit to stand lift to get to chair post session. OT ADL's Where Assessed: Chair Eating Assist: Independent Eating Deficits: No Assist Needed Grooming Assist: Stand By Assist Grooming Deficits: Setup LE Dressing Assist: Total Assist LE Dressing Deficits: Don/Doff R Sock, Don/Doff L Sock Functional Transfer Assist: Total Assist Functional Transfer Deficits: (Sit to stand lift) Comment: Patient tolerates 3 minutes of static standing in standing frame prior to requesting to return to seated. L LE buckled severely while standing in standing frame but due to knee blocks, patient was safe from falling. INSULATION INSTALLER COGNITIVE EVALUATION SUMMARY PRAGMATICS: BEHAVIOR: AUDITORY COMPREHENSION: ORIENTATION: AUDITORY ATTENTION/WORKING MEMORY: AUDITORY MEMORY/SUSTAINED ATTENTION: NEW LEARNING: SEQUENCING/ORGANIZATION: PROBLEM SOLVING: REASONING: MATH/MONEY SKILLS: VISUAL PERCEPTUAL: SWALLOW EVALUATION SUMMARY Summary: Clinical swallow evaluation completed. Suspect mild-moderate oropharyngeal dysphagia present. Primary factors impacting swallow function at this time include Oral Stage Summary*: Trials of ice chips, thin liquids (via tsp, cup drink, 3 oz water challenge), nectar liquids (via tsp), and pureed solids provided. Oral stage appeared WFL. Pharyngeal Stage Summary*: Swallow initiation appeared intermittently delayed. Laryngeal palpation unable to be assessed secondary to body habitus. Pt unable to complete 3 oz water challenge, with multiple starts/stops. Multiple swallows appreciated with nectar liquids. Swallow Recommendations* PO: Full Liquid Swallow Strategies: Small Bites/Sips, Slow Rate of Intake, Alternate Solids and Liquids Plan: Continue Treatment __x/week (Comment). (3-5x) Prognosis: Fair, Good Review of Systems A 14 point review of systems was negative except for: what is in HPI Physical Exam BP: 128/74 (02/03 2219) Temp: 36.3 C (97.4 F) (02/03 2219) Pulse: 60 (02/03 2219) Respirations: 16 PER MINUTE (02/03 2219) SpO2: 95 % (02/03 2219) O2 Delivery: None (Room Air) (02/03 2219) Body mass index is 37.67 kg/m. Gen: Alert & Oriented X 3, No Acute Distress HEENT: NCAT, PERRL, EOMI, MMM Neck: Supple, no elevated JVP Heart: Regular Rate & Rhythm, no m/g/r Lungs: Clear to auscultation bilaterally, no w/r/r Abdomen: Soft, non-tender, non-distended, +BS : +[place] Skin: warm, dry Ext: no edema/cyanosis MS: Root Right Left Shoulder Abduction C5 5 4 Elbow Flexion C5 5 4 Elbow Extension C7 5 4 Wrist Extension C6 5 4 Finger Flexion C8 5 4 Finger Abduction T1 5 4 Hip Flexion L2 4 4 Knee Flexion L5/S1 5 5 Knee Extension L3 5 5 Dorsiflexion L4 5 4 Plantarflexion S1 5 4 EHL Extension L5 5 4 Neuro: Cranial Nerves Cranial Nerves 2-12 are grossly intact DTR's Symmetric Babinski Plantar Reflex is Downgoing Bilaterally Donaldson Normal Upper Extremity Tone Normal Lower Extremity Tone Normal Upper Extremity Sensation Diminished to light touch on left Lower Extremity Sensation Diminished to light touch on left Clonus Negative Bilaterally Proprioception Intact Bilaterally Memory/Cognition/Speech Fluent speech, cognition intact, aox3. Intake/Output Summary: Intake/Output Summary (Last 24 hours) at 02/03/182219 Last data filed at 02/03/182219 Gross per 24 hour Intake 694 ml Output 1825 ml Net -1131 ml Stool Occurrence: 0 (02/03/2018 10:20 PM) Last BM Date: 01/30/18 (02/03/2018 10: 54 AM) BVI (Bladder Scan)(mL): 105 milliliters (01/31/2018 4:00 PM) No Data Recorded No Data Recorded No Data Recorded No Data Recorded Basic Metabolic Profile Lab Results Component Value Date/Time NA 140 02/03/2018 04:25 AM K 3.7 02/03/2018 04:25 AM CA 8.8 02/03/2018 04:25 AM CL 106 02/03/2018 04:25 AM CO2 26 02/03/2018 04:25 AM Lab Results Component Value Date/Time BUN 26 (H) 02/03/2018 04:25 AM CR 1.11 02/03/2018 04:25 AM GLU 158 (H) 02/03/2018 04:25 AM GLU 79 12/05/2005 09:45 AM CBC w/Diff Lab Results Component Value Date/Time WBC 8.4 02/03/2018 04:25 AM RBC 4.28 (L) 02/03/2018 04:25 AM HGB 12.9 (L) 02/03/2018 04:25 AM HCT 39.1 (L) 02/03/2018 04:25 AM MCV 91.4 02/03/2018 04:25 AM MCH 30.1 02/03/2018 04:25 AM RDW 15.6 (H) 02/03/2018 04:25 AM PLTCT 148 (L) 02/03/2018 04:25 AM MPV 7.2 02/03/2018 04:25 AM Lab Results Component Value Date/Time NEUT 58 02/03/2018 04:25 AM ANC 4.90 02/03/2018 04:25 AM LYMA 33 02/03/2018 04:25 AM ALC 2.70 02/03/2018 04:25 AM MARGARITA 7 02/03/2018 04:25 AM AMC 0.60 02/03/2018 04:25 AM EOSA 1 02/03/2018 04:25 AM AEC 0.10 02/03/2018 04:25 AM BASA 1 02/03/2018 04:25 AM ABC 0.00 02/03/2018 04:25 AM Radiology: MRI head w/wo 01/31/18 1. Prior left pterional craniotomy and partial [...] neuritis. 5. No evidence of acute infarct. * Jose Hickman MD - 01/31/2018 6:22 PM SCRIPT EDITOR Associated Order(s): CONSULT OPHTHALMOLOGY PHYSICIAN Formatting of this note may be different from the original. Ophthalmology Consult History and Physical - PGY-3 CC/Reason for Consultation: periorbital cellulitis and secondarily unexplained mydriasis HPI: 67 y.o. man w complex craniofacial hx of left temporal craniotomy in 2010 w subsequent multiple bouts of osteomyelitis, mastoidits, bilateral otitis, & L facial pain who was admitted yesterday w concern for stroke d/t left-sided weakness. Ophthalmology consulted d/t concern for preseptal cellulitis w 1 wk of left-sided facial swelling and possible pupillary abnormalities on exam. Pt is poor historian and can't remember much of his medical hx or what his doctors have told him, but says vision seems blurry in both eyes, worse in left eye, and complains of tenderness around the left eye. 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 Past Medical History: Past Medical History: Diagnosis Date Acute myocardial infarction, unspecified site 1979 Arthritis Attempted suicide 2004 Overdose CAD (coronary artery disease) Chronic mastoiditis of left side Chronic otitis media ED (erectile dysfunction) Enlarged prostate Epilepsy (HCC) Headache(784.0) Headaches Hypertension Infection bone flap Morbid obesity (HCC) Neuropathy, lower extremity Bilateral Non-melanoma skin cancer АНДРЕЙ (obstructive sleep apnea) uses C-PAP Pruritus - disorder bilateral arms, shoulders. Seizure (HCC) Weakness of left side of body x3 years following seizures. Wound infection chronic Past Surgical History: Past Surgical History: Procedure Laterality Date HX BRAIN SURGERY 09/17/11 Left temporal lobectomy for uncontrolled seizures HX MASTOIDECTOMY 12/27/11 left side; canal wall down TYMPANOPLASTY 12/27/11 CRANIECTOMY 11/05/12 Infected bone flap removal SURGERY 11/05/12 I&D of infected bone flap ANKLE ARTHROSCOPY right. APPENDECTOMY CARPAL TUNNEL RELEASE right. CATARACT REMOVAL bilateral. HX CATARACT REMOVAL HX TONSILLECTOMY ROTATOR CUFF REPAIR left shoulder. VAGAL NERVE STIMULATION Past Ocular History: Poor historian, but by exam s/p CEIOL & YPC OU, unknown time course Allergies: No Known Allergies Social History: Social History Social History Marital status: Spouse name: [facility] Number of children: N/A Years of education: N/A Occupational History Disabled Social History Main Topics Smoking status: Never Smoker Smokeless tobacco: Never Used Alcohol use No Drug use: No Sexual activity: Not Currently Partners: Female Other Topics Concern Service Yes Caffeine Concern No Sleep Concern No C-Pap for apnea Social History Narrative No narrative on file Medications: Scheduled Meds: allopurinol (ZYLOPRIM) tablet 100 mg 100 mg Oral QDAY amLODIPine (NORVASC) tablet 5 mg 5 mg Oral QDAY aspirin tablet 325 mg 325 mg Oral QDAY atenolol (TENORMIN) tablet 100 mg 100 mg Oral QDAY baclofen (LIORESAL) tablet 10 mg 10 mg Oral TID [START ON 02/02/2018] bisacodyl (DULCOLAX) rectal suppository 10 mg 10 mg Rectal QDAY bumetanide (BUMEX) tablet 1 mg 1 mg Oral BID(9-17) cefTRIAXone (ROCEPHIN) IVP 1 g 1 g Intravenous Q24H* dexamethasone (DECADRON) injection 8 mg 8 mg Intravenous Q8H docusate (COLACE) capsule 100 mg 100 mg Oral BID finasteride (PROSCAR) tablet 5 mg 5 mg Oral QDAY gabapentin (NEURONTIN) capsule 800 mg 800 mg Oral Q8H insulin aspart U-100 (NOVOLOG FLEXPEN) injection PEN 0-7 Units 0-7 Units Subcutaneous 5 X Day lidocaine (LIDODERM) 5 % topical patch 1 patch 1 patch Topical Q24H* LIDOCAINE HCL 10 MG/ML (1 %) IJ SOLN (Cabinet Override) NOW lisinopril (PRINIVIL; ZESTRIL) tablet 20 mg 20 mg Oral QDAY loratadine (CLARITIN) tablet 10 mg 10 mg Oral QDAY milk of magnesia (CONC) oral suspension 10 mL 10 mL Oral QDAY mirtazapine (REMERON) tablet 45 mg 45 mg Oral QHS ofloxacin (FLOXIN) 0.3 % (ophthalmic for otic use) solution 4 drop 4 drop Both Ears BID pantoprazole DR (PROTONIX) tablet 40 mg 40 mg Oral QDAY(21) phenytoin SR (DILANTIN) capsule 300 mg 300 mg Oral QDAY senna/docusate (SENOKOT-S) tablet 1 tablet 1 tablet Oral BID sertraline (ZOLOFT) tablet 300 mg 300 mg Oral QDAY Continuous Infusions: PRN and Respiratory Meds:acetaminophen Q4H PRN, docusate BID PRN, fentaNYL citrate PF Q1H PRN, hydrALAZINE Q6H PRN, HYDROcodone/acetaminophen Q4H PRN, labetalol (NORMODYNE; TRANDATE) injection Q15 MIN PRN, nitroglycerin Q5 MIN PRN , ondansetron (ZOFRAN) IV Q6H PRN Family History: No known history of ocular disease ROS: Constitutional: WNL Eyes: See HPI Ears: WNL CV: WNL Resp: WNL Gastro: WNL Musculo: WNL Skin: WNL Neuro: WNL Psych: WNL PHYSICAL EXAM Near Visual Acuity: CC: OD 20/25-2 OS 20/50-2, PH 20/50 Pupils: 5 mm/5 mm, 4+/4+ reactive, no RAPD [place]: 13 OD, 11 OS CVF: Full to CF OU Motility: Full OU, although subjective mild pain w motility testing OS Subjective dredging inspector & white light desaturation OS Adnexa: WNL OD, mild tenderness to palpation of periorbital tissue OS but no erythema or obvious edema/swelling periorbitally on left side Conjunctiva: White/Quiet OU, no fluorescein staining OU Cornea: Clear OU, no fluorescein staining OU A/C: Deep/Grossly Clear OU Iris: Round/Flat OU Lens: PCIOL w open capsule OU DILATED FUNDUS EXAM: mildly hazy view OU (Dilated with 2.5% Phenylephrine and 1% Tropicamide OU. Effects last 4-6 hours ) Optic Nerve: 0.5 p/f/s OU Macula: Attached and flat OU, ERM OS Vessels: WNL OU Vitreous: No stranding or heme OU, PVD OS Periphery: No breaks or tears OU LABS/IMAGING: MRI head/orbit/face 01/31/18: 1. Prior left pterional craniotomy and partial [...] neuritis. 5. No evidence of acute infarct. A/P: 1. Concern for preseptal cellulitis and pupil abnormality - no pupil abnormalities seen on exam, no obvious preseptal or orbital cellulitis based on exam, no obvious soft tissue cellulitis on imaging as above 2. Decreased vision & pain with eye movements, left eye - no obvious etiology to explain these symptoms, differential includes optic neuritis and orbital pseudotumor, as well as orbital cellulitis although less likely - may need steroids but will hold off on recommending for now, will start artificial tears QID and recheck tomorrow Patient discussed with Dr. Dorado, Attending Physician, will be seen with staff tomorrow. Thank you for the consult. If you have any questions do not hesitate to contact us. Jose Hickman MD Department of Ophthalmology PGY-3 [facility] [address] [place] [address] Associated attestation - Carolina Dorado MD - 02/03/2018 1:05 PM SCRIPT EDITOR Formatting of this note may be different from the original. ATTESTATION I did not personally examine the patient, but I did discuss the case with the resident, and agree with the assessment and plan as noted above. Please see below for any addendums. Staff name: Carolina Dorado MD Date: 02/03/2018 * Luis Martell MD - 01/31/2018 4:03 AM SCRIPT EDITOR Associated Order(s): CONSULT OTOLARYNGOLOGY (ENT) PHYSICIAN Formatting of this note may be different from the original. General Consult Note Admission Date: 01/30/2018 LOS: 0 days Reason for Consult: mastoiditis Consult type: Opinion Assessment/Plan 67 y/o male with multiple medical problems known to Dr. Frias for bilateral chronic otitis and left mastoid cavity with routine follow up admitted by neurosurgery for worsening left sided facial swelling and left sided weakness concerning for cerebrovascular event. Now with left otitis externa/media with possible mastoiditis Recommend floxin drops to bilateral ears. Oral vs. IV antibiotics at discretion of primary team would ecommend rocefin for a 5 day course. Will follow and re- examine ear. History of Present Illness: Fidel Henriquez is a 67 y.o. male known to Dr. Frias with bilateral otitis admitted by neurosurgery for worsening left sided facial swelling with weakness. He reports 2 weeks of left ear drainage with progressive left facial swelling. Hedid not have fevers at home. Drainage is getting worse and he reports worsening of hearing out of left ear. He denies facial nerve changes or vertigo. Past Medical History: Diagnosis Date Acute myocardial infarction, unspecified site 1979 Arthritis Attempted suicide 2004 Overdose CAD (coronary artery disease) Chronic mastoiditis of left side Chronic otitis media ED (erectile dysfunction) Enlarged prostate Epilepsy (HCC) Headache(784.0) Headaches Hypertension Infection bone flap Morbid obesity (HCC) Neuropathy, lower extremity Bilateral Non-melanoma skin cancer АНДРЕЙ (obstructive sleep apnea) uses C-PAP Pruritus - disorder bilateral arms, shoulders. Seizure (HCC) Weakness of left side of body x3 years following seizures. Wound infection chronic Past Surgical History: Procedure Laterality Date HX BRAIN SURGERY 09/17/11 Left temporal lobectomy for uncontrolled seizures HX MASTOIDECTOMY 12/27/11 left side; canal wall down TYMPANOPLASTY 12/27/11 CRANIECTOMY 11/05/12 Infected bone flap removal SURGERY 11/05/12 I&D of infected bone flap ANKLE ARTHROSCOPY right. APPENDECTOMY CARPAL TUNNEL RELEASE right. CATARACT REMOVAL bilateral. HX CATARACT REMOVAL HX TONSILLECTOMY ROTATOR CUFF REPAIR left shoulder. VAGAL NERVE STIMULATION Social History Social History Marital status: Spouse name: Tonya Number of children: N/A Years of education: N/A Occupational History Disabled Social History Main Topics Smoking status: Never Smoker Smokeless tobacco: Never Used Alcohol use No Drug use: No Sexual activity: Not Currently Partners: Female Other Topics Concern Service Yes Caffeine Concern No Sleep Concern No C-Pap for apnea Social History Narrative No narrative on file Family history reviewed; non-contributory Allergies: Patient has no known allergies. Scheduled Meds: allopurinol (ZYLOPRIM) tablet 100 mg 100 mg Oral QDAY amLODIPine (NORVASC) tablet 5 mg 5 mg Oral QDAY aspirin tablet 325 mg 325 mg Oral QDAY atenolol (TENORMIN) tablet 100 mg 100 mg Oral QDAY baclofen (LIORESAL) tablet 10 mg 10 mg Oral TID [START ON 02/02/2018] bisacodyl (DULCOLAX) rectal suppository 10 mg 10 mg Rectal QDAY bumetanide (BUMEX) tablet 1 mg 1 mg Oral BID(9-17) docusate (COLACE) capsule 100 mg 100 mg Oral BID finasteride (PROSCAR) tablet 5 mg 5 mg Oral QDAY gabapentin (NEURONTIN) capsule 800 mg 800 mg Oral Q8H insulin aspart U-100 (NOVOLOG FLEXPEN) injection PEN 0-7 Units 0-7 Units Subcutaneous 5 X Day lidocaine (LIDODERM) 5 % topical patch 1 patch 1 patch Topical Q24H* lisinopril (PRINIVIL; ZESTRIL) tablet 20 mg 20 mg Oral QDAY loratadine (CLARITIN) tablet 10 mg 10 mg Oral QDAY milk of magnesia (CONC) oral suspension 10 mL 10 mL Oral QDAY mirtazapine (REMERON) tablet 45 mg [address] (PROTONIX) tablet 40 mg 40 mg Oral QDAY(21) phenytoin SR (DILANTIN) capsule 300 mg 300 mg Oral QDAY senna/docusate (SENOKOT-S) tablet 1 tablet 1 tablet Oral BID sertraline (ZOLOFT) tablet 300 mg 300 mg Oral QDAY Continuous Infusions: PRN and Respiratory Meds:acetaminophen Q4H PRN, docusate BID PRN, hydrALAZINE Q6H PRN, HYDROcodone/acetaminophen Q4H PRN, labetalol (NORMODYNE; TRANDATE) injection Q15 MIN PRN, nitroglycerin Q5 MIN PRN, ondansetron (ZOFRAN) IV Q6H PRN Review of Systems: All other systems reviewed and are negative. Vital Signs: Last Filed in 24 hours Vital Signs: 24 hour Range BP: 124/55 (01/31 0345) Temp: 36.9 C (98.4 F) (01/31 0000) Pulse: 57 (01/31 034) Respirations: 18 PER MINUTE (01/31 0300) SpO2: 92 % (01/31 034) O2 Delivery: None (Room Air) (01/31 034) SpO2 Pulse: 57 (01/31 034) Height: 185.4 cm (73") (01/30 2300) BP: (116-143)/(55-89) Temp: [36.5 C (97.7 F)-36.9 C (98.4 F)] Pulse: [53-61] Respirations: [12 PER MINUTE-25 PER MINUTE] SpO2: [92 %-99 %] O2 Delivery: None (Room Air) Physical Exam: General appearance: Fidel is in is alert and oriented. Communication ability: communicates by voice, normal quality Inspection: normocephalic, left scalp scars External ear: RIGHT normal, no lesions or deformities with canal clear, tympanic membranes intact, no fluid LEFT with canal wall down cavity with drainage around ear and in cavity . Hearing: grossly intact Lips/teeth/gums: normal dentition, no gingival inflammation, no lip lesions Oropharynx: tongue normal, posterior pharynx without erythema or exudate mucosa dry Pharynx wall/sinus: no saliva pooling, asymmetry, or lesions Neck: supple, no masses, trachea midline. No cervical adenopathy, thyromegaly, or parotid masses. Left neck tenderness and swelling External nose: normal, no lesions or deformities Nasal: mucosa, septum, and turbinates normal Eyes: Extraocular motion is normal. No diplopia. Pupils are equal and reactive. Cranial nerves II-XII are intact. Lab/Radiology/Other Diagnostic Tests: WBC 11 MRI pending Luis Martell MD Pager * Elysia Cartagena MD - 01/31/2018 2:01 AM SCRIPT EDITOR Associated Order(s): CONSULT CARDIOLOGY PHYSICIAN Formatting of this note may be different from the original. Cardiology Consult Note Admission Date: 01/30/2018 Assessment/Plan: Fidel Henriquez is a 67 y.o. 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 who was transferred from an outside hospital to the neuro ICU for slurred speech and facial asymmetry. He is being evaluated for mastoiditis and stroke. He is also complaining of chest pain which is prompting urgent cardiology consult. 1. Chest pain: Atypical for ACS as it is easily reproducible. However, he does describe it as "heaviness" and he has risk factors. Pain started at 3 pm and troponin is negative 9 hours later. EKG not concerning for ischemia or ID. It is unclear to me what his "heart attack" truly was. He says he never had a cath or stent. 2. PVCs 3. Hypertension 4. DM2 5. Obesity Recommendations: 1. Trend troponin q 6 hours tonight. 2. Repeat EKG if chest pain worsens. 3. Echo ordered for tomorrow. 4. Can try sublingual nitroglycerin to see if it helps. Will staff with Dr. Mitzi Woo MD [id number] I discussed the above with the fellow. Echo reviewed with normal results and troponin levels normal overnight. WIll plan to see on 02/01/18 for follow up. Please call with any questions. Reason for consult: Chest pain History of Present Illness: Fidel Henriquez is a 67 y.o. 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 who was transferred from an outside hospital to the neuro ICU for slurred speech and facial asymmetry. He is being evaluated for mastoiditis and stroke. He is also complaining of chest pain which is prompting urgent cardiology consult. He is a poor historian. Yesterday his daughter noted that he had slurred speech and facial asymmetry while he was at the eye doctor. Staff at the office noticed left sided weakness and sent him to an OSH ER. While at the ER he noted chest heaviness "like someone is sitting on my chest". The pain started about 3 pm on 01/30/18. He points to his left pectoral area, not the center of his chest. The pain does not radiate anywhere. At first he also noted shortness of breath but it quickly resolved. No diaphoresis, lightheadedness, palpitations, syncope. He's not had exertional chest pain but he is not very physically active. Pain is reproducible with palpation of his L lateral pectoral area. He was given ASA 325 mg. He says he had a "small heart attack" about 10 years ago but denies stent or cath at that time. SH: Denies any smoking history FH: he is adopted and does not know his family history Past Medical History: Past Medical History: Diagnosis Date Acute myocardial infarction, unspecified site 1979 Arthritis Attempted suicide 2004 Overdose CAD (coronary artery disease) Chronic mastoiditis of left side Chronic otitis media ED (erectile dysfunction) Enlarged prostate Epilepsy (HCC) Headache(784.0) Headaches Hypertension Infection bone flap Morbid obesity (HCC) Neuropathy, lower extremity Bilateral Non-melanoma skin cancer АНДРЕЙ (obstructive sleep apnea) uses C-PAP Pruritus - disorder bilateral arms, shoulders. Seizure ([facility]) Weakness of left side of body x3 years following seizures. Wound infection chronic Medications: Prescriptions Prior to Admission Medication Sig allopurinol (ZYLOPRIM) 100 mg tablet Take 100 mg by mouth daily. amLODIPine (NORVASC) 5 mg tablet Take 5 mg by mouth daily. atenolol (TENORMIN) 100 mg tablet Take 1 Tab by mouth daily. baclofen (LIORESAL) 10 mg tablet Take 10 mg by mouth three times daily. docusate (COLACE) 100 mg capsule Take 1 Cap by mouth twice daily as needed for Constipation. empagliflozin (JARDIANCE) 25 mg tab Take 25 mg by mouth daily. finasteride (PROSCAR) 5 mg tablet TAKE 1 TABLET BY MOUTH ONCE DAILY gabapentin (NEURONTIN) 800 mg tablet Take 1 tablet by mouth every 8 hours. glimepiride (AMARYL) 2 mg tablet Take 2 mg by mouth twice daily. HYDROcodone/acetaminophen (NORCO) 5/325 mg tablet Take 1 tablet by mouth every 8 hours as needed for Pain ibuprofen (MOTRIN) 600 mg tablet Take 600 mg by mouth every 12 hours as needed. lidocaine (LIDODERM) 5 % topical patch Apply 1 patch topically to affected area every 24 hours. Apply patch for 12 hours, then remove for 12 hours before repeating. lisinopril (PRINIVIL; ZESTRIL) 10 mg tablet Take 20 mg by mouth daily. loratadine (CLARITIN) 10 mg tablet Take 10 mg by mouth daily. meloxicam (MOBIC) 7.5 mg tablet Take 1 tablet by mouth daily. metFORMIN (GLUCOPHAGE) 500 mg tablet Take 500 mg by mouth twice daily with meals. mirtazapine (REMERON) 30 mg tablet Take 1 and 1/2 tablet at night for mood, anxiety and sleep omeprazole DR(+) (PRILOSEC) 20 mg capsule Take 20 mg by mouth daily. phenytoin SR (DILANTIN) 100 mg capsule Take 3 capsules by mouth daily. potassium chloride SR (K-DUR) 20 mEq tablet Take 20 mEq by mouth daily. sertraline (ZOLOFT) 100 mg tablet Take 300mg in AM (3x 100mg) for mood, anxiety and skin picking sitaGLIPtin (JANUVIA) 100 mg tab tablet Take 100 mg by mouth daily. torsemide(+) (DEMADEX) 20 mg tablet Take 20 mg by mouth twice daily. VIAGRA 100 mg tablet Take 1 Tab by mouth as Needed for Erectile dysfunction. Take on empty stomach approx 1-4 hrs prior to sexual activity. Allergies: Patient has no known allergies. Past Surgical History: Past Surgical History: Procedure Laterality Date HX BRAIN SURGERY 09/17/11 Left temporal lobectomy for uncontrolled seizures HX MASTOIDECTOMY 12/27/11 left side; canal wall down TYMPANOPLASTY 12/27/11 CRANIECTOMY 11/05/12 Infected bone flap removal SURGERY 11/05/12 I&D of infected bone flap ANKLE ARTHROSCOPY right. APPENDECTOMY CARPAL TUNNEL RELEASE right. CATARACT REMOVAL bilateral. HX CATARACT REMOVAL HX TONSILLECTOMY ROTATOR CUFF REPAIR left shoulder. VAGAL NERVE STIMULATION Family History: Family History Problem Relation Age of Onset Other Mother family: History of heart condition, alzheimers,depression Cancer Other Heart Attack Other Depression Other Other Other Social History: Social History Substance Use Topics Smoking status: Never Smoker Smokeless tobacco: Never Used Alcohol use No Review of Systems: A 14 point review of systems was performed and was found unremarkable except for HPI General: negative/normal. Eyes: negative/normal. Ears/Nose/Throat: negative/normal. Cardiovascular: as above Respiratory: negative/normal. Gastrointestinal: negative/normal. Genitourinary: negative/normal. Musculoskeletal: negative/normal. Skin: negative/normal. Neurologic: as above Psychiatric: negative/normal. Endocrine: negative/normal. Heme/Lymphatic: negative/normal. Physical Exam: Vital Signs BP: 127/68 (01/31 0100) Temp: 36.9 C (98.4 F) (01/31 0000) Pulse: 57 (01/31 0100) Respirations: 25 PER MINUTE (01/31 0100) SpO2: 95 % (01/31 0100) O2 Delivery: None (Room Air) (01/31 010) SpO2 Pulse: 56 (01/31 100) Height: 185.4 cm (6' 1") (01/30 2300) General: awake & oriented, no acute distress Eyes: non-icteric, clear conjunctivae, PERRL Mouth: moist mucus membranes, clear posterior oropharynx Neck: supple, no lymphadenopathy, no carotid bruits, no JVD CV: regular rate, normal rhythm, normal S1/S2, no murmurs, rubs, gallops, or clicks Lungs: clear to ausculation bilaterally, no wheezes/rhonchi/crackles Abdomen: normoactive bowel sounds, soft, non-tender, non-distended Extremities: No clubbing, cyanosis, or edema Neuro: moves all 4 extremities Lab/Radiology/Other Diagnostic Tests: Labs: Pertinent labs reviewed Radiology: Pertinent radiology reviewed EKG: sinus rhythm first degree AV block. Tele: some PVCs and short periods of ventricular bigeminy * Marvin Aparicio APRN - 01/31/2018 1:37 AM SCRIPT EDITOR Associated Order(s): CONSULT NEURO CRITICAL CARE PHYSICIAN Formatting of this note may be different from the original. Neuro Critical Care History and Physical F[facility] [place] Admission Date: 01/30/2018 LOS: 0 days Full Code ASSESSMENT/PLAN Patient Active Problem List Diagnosis Date Noted Hygroma 01/31/2018 Chronic migraine 01/07/2018 Status post craniectomy 01/07/2018 Weakness of left lower extremity 09/11/2017 Abnormal gait 09/11/2017 Chronic nonsuppurative otitis media of right ear 12/11/2016 Adjustment disorder with mixed anxiety and depressed mood 10/14/2016 Atypical facial pain 01/10/2016 Skin-picking disorder 10/20/2015 Prostate cancer screening 12/14/2014 ED (erectile dysfunction) of organic origin Enlarged prostate with lower urinary tract symptoms (LUTS) Cysto (06/13/2104): (+)BPH w/ intravesical median lobe. Started Finasteride -- 06/13/2014. Hematuria, gross Hematuria w/u (March - May 2014) no evidence of malignancy. 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 Laryngopharyngeal reflux 09/08/2013 Dysphagia, pharyngoesophageal phase 09/08/2013 Acquired skull defect 09/14/2012 S/p wound infection, removal of bone flap [...] of recurrent major depressive disorder, without psychotic features ([facility]) 11/04/2011 SIRS (systemic inflammatory response syndrome) ([facility]) 11/03/2011 Respiratory failure ([facility]) 11/03/2011 Hypokalemia 07/15/2011 Pneumocephalus 07/11/2011 Post-occipital carlos hole electrode placement Groin pain, right lower quadrant 05/21/2011 S/p flakita Weakness 04/10/2011 Partial epilepsy with impairment of consciousness, intractable ([facility]) 2009 S/p left temporal lobectomy in 08/2011. Patient has been seizure free since then. Chronic otitis media 07/31/2010 Hearing loss, mixed, bilateral 07/31/2010 Ataxia 02/22/2008 Morbid obesity (HCC) 02/22/2008 АНДРЕЙ (obstructive sleep apnea) 02/22/2008 Neuropathy Peripheral 02/10/2008 Fidel Henriquez is a 67 y.o. 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 Hospital and ICU course: 01/31: admitted to NICU, Stroke activation, cardiology consult, ENT consult, MRI Neuro: Hx left temporal lobectomy for uncontrolled seizures - [employer]HALT ROLLER OPERATOR Dilantin SR 100 mg - Will check Dilantin level this am - [employer]LL[employer] OPERATOR Neurontin 800 mg, Baclofen 10 mg TID Mastoiditis, Chronic otitis media: - ENT consulted - MRI head, MRI facial ordered Left sided weakness, dysarthria - Last known well > 3 days ago - [place] team activated - no indication for evaluation with CTA/CTP for acute stroke intervention given unclear symptom onset - obtain MRI W/WO - ASA 325 mg started Sedation/Pain Management: Peripheral neuropathy, depression, anxiety - Assess for delirium daily - [employer] ROLLER OPERATOR Zoloft 100 mg, Remeron - [employer]HALT ROLLER OPERATOR Baclofen 10 mg TID - Neurontin 800 mg Q 8 - [place] Cardiac:HTN, chest pain, PVC - EKG - multiple PVC - Cardiology consulted - Troponin negative on addmision - Trend troponin q 6 hours tonight. Repeat EKG if chest pain worsens. Echo ordered for tomorrow. Can try sublingual nitroglycerin to see if it helps - Bumex 1 mg BID, [employer]LL[employer] OPERATOR lisinopril 20 mg, atenolol 100 mg, Norvasc 5 mg Q day Respiratory:АНДРЕЙ - Stable GI: - Feeding: NPO - neurosurgery bowel regimen, ensure daily BM Heme: - assess for coagulopathy, maintain platelets above 100k, INR <1.5 ID: - Tmax 36.9 - WBC: 11.9 - aim for normothermia, Temp <38.3 celsius, normothermia protocol if febrile Renal: Gout, BPH - Aim for normovolemia - [employer]LL[employer] OPERATOR Proscar, Allopurinol Endocrine: DM - Blood glucose goal 100-180mg/dl - HA1C pending- Low dose SSI started FEN: - Magnesium goal >2.0, i-Rupesh goal > 1.0, Potassium goal >4.0 mEq/L Prophylaxis Review: A)GI: [id number] B) Lines: No C) Urinary Catheter: No D) Antibiotic Usage: No E) VTE: { F) Isolation: no G)Seizures: dilantin I) Restraints: Patient assessed for need for restraints. Disposition/Family: ICU care Primary service: NS Consults: NICU SUBJECTIVE Chief Complaint: Facial swelling, left sided weakness History of Present Illness: Fidel Henriquez is a 67 y.o. male PMH HTN, CAD , Baastrup's disease, partial epilepsy s/p lobectomy complicated by wound infection requiring craniectomy, chronic mastoiditis s/p L mastoidectomy and tympanoplasty transferred form [facility] on 01/31/2018 with new left facial swelling, left sidde weakness with slurred speech. Currenlty he gets botox injections into left side of his face. On exam patient reports pain to touch on left side of his face, ear. When arrive to NICU patient alert, oriented X 3, 4+/5 strength in UE & LE, L upper facial paralysis, and mild dysarthria - NIHSS 5. Stroke team activated. Patient is poor historian. Last known well over 3 days ago. No indication for evaluation with CTA/P. EKG showed multiple PVC's, cardiology consulted. Past Medical History: Diagnosis Date Acute myocardial infarction, unspecified site 1979 Arthritis Attempted suicide 2004 Overdose CAD (coronary artery disease) Chronic mastoiditis of left side Chronic otitis media ED (erectile dysfunction) Enlarged prostate Epilepsy (HCC) Headache(784.0) Headaches Hypertension Infection bone flap Morbid obesity (HCC) Neuropathy, lower extremity Bilateral Non-melanoma skin cancer АНДРЕЙ (obstructive sleep apnea) uses C-PAP Pruritus - disorder bilateral arms, shoulders. Seizure (HCC) Weakness of left side of body x3 years following seizures. Wound infection chronic Past Surgical History: Procedure Laterality Date HX BRAIN SURGERY 09/17/11 Left temporal lobectomy for uncontrolled seizures HX MASTOIDECTOMY 12/27/11 left side; canal wall down TYMPANOPLASTY 12/27/11 CRANIECTOMY 11/05/12 Infected bone flap removal SURGERY 11/05/12 I&D of infected bone flap ANKLE ARTHROSCOPY right. APPENDECTOMY CARPAL TUNNEL RELEASE right. CATARACT REMOVAL bilateral. HX CATARACT REMOVAL HX TONSILLECTOMY ROTATOR CUFF REPAIR left shoulder. VAGAL NERVE STIMULATION Family History Problem Relation Age of Onset Other Mother family: History of heart condition, alzheimers,depression Cancer Other Heart Attack Other Depression Other Other Other Social History Social History Narrative No narrative on file Code Status: DNR Immunizations (includes history and patient reported): There is no immunization history on file for this patient. Allergies: Patient has no known allergies. Prescriptions Prior to Admission Medication Sig allopurinol (ZYLOPRIM) 100 mg tablet Take 100 mg by mouth daily. amLODIPine (NORVASC) 5 mg tablet Take 5 mg by mouth daily. atenolol (TENORMIN) 100 mg tablet Take 1 Tab by mouth daily. baclofen (LIORESAL) 10 mg tablet Take 10 mg by mouth three times daily. docusate (COLACE) 100 mg capsule Take 1 Cap by mouth twice daily as needed for Constipation. empagliflozin (JARDIANCE) 25 mg tab Take 25 mg by mouth daily. finasteride (PROSCAR) 5 mg tablet TAKE 1 TABLET BY MOUTH ONCE DAILY gabapentin (NEURONTIN) 800 mg tablet Take 1 tablet by mouth every 8 hours. glimepiride (AMARYL) 2 mg tablet Take 2 mg by mouth twice daily. HYDROcodone/acetaminophen (NORCO) 5/325 mg tablet Take 1 tablet by mouth every 8 hours as needed for Pain ibuprofen (MOTRIN) 600 mg tablet Take 600 mg by mouth every 12 hours as needed. lidocaine (LIDODERM) 5 % topical patch Apply 1 patch topically to affected area every 24 hours. Apply patch for 12 hours, then remove for 12 hours before repeating. lisinopril (PRINIVIL; ZESTRIL) 10 mg tablet Take 20 mg by mouth daily. loratadine (CLARITIN) 10 mg tablet Take 10 mg by mouth daily. meloxicam (MOBIC) 7.5 mg tablet Take 1 tablet by mouth daily. metFORMIN (GLUCOPHAGE) 500 mg tablet Take 500 mg by mouth twice daily with meals. mirtazapine (REMERON) 30 mg tablet Take 1 and 1/2 tablet at night for mood, anxiety and sleep omeprazole DR(+) (PRILOSEC) 20 mg capsule Take 20 mg by mouth daily. phenytoin SR (DILANTIN) 100 mg capsule Take 3 capsules by mouth daily. potassium chloride SR (K-DUR) 20 mEq tablet Take 20 mEq by mouth daily. sertraline (ZOLOFT) 100 mg tablet Take 300mg in AM (3x 100mg) for mood, anxiety and skin picking sitaGLIPtin (JANUVIA) 100 mg tab tablet Take 100 mg by mouth daily. torsemide(+) (DEMADEX) 20 mg tablet Take 20 mg by mouth twice daily. VIAGRA 100 mg tablet Take 1 Tab by mouth as Needed for Erectile dysfunction. Take on empty stomach approx 1-4 hrs prior to sexual activity. Review of Systems: Review obtained from jonathan, medical records.. OBJECTIVE Vital Signs: Last Filed Vital Signs: 24 Hour Range BP: 127/68 (01/31 100) Temp: 36.9 C (98.4 F) (01/31 0000) Pulse: 57 (01/31 100) Respirations: 25 PER MINUTE (01/31 100) SpO2: 95 % (01/31 100) O2 Delivery: None (Room Air) (01/31 100) Height: 185.4 cm (73") (01/30 2300) Weight: 129.7 kg (285 lb 15 oz) (01/30 2300) BP: (120-143)/(68-89) Temp: [36.5 C (97.7 F)-36.9 C (98.4 F)] Pulse: [57-61] Respirations: [12 PER MINUTE-25 PER MINUTE] SpO2: [94 %-99 %] O2 Delivery: None (Room Air) Intensity Pain Scale 0-10 (Pain 1): (not recorded) Vitals: 01/30/182299 Weight: 129.7 kg (285 lb 15 oz) Artificial airway: None Ventilator/ Respiratory Therapy: No Vent weaning trial: Not applicable Lines: Peripheral Line Drains: None Critical Care Vitals: ICP Monitoring: Hemodynamics/Oxycalcs: Intake/Output Summary: (Last 24 hours) No intake or output data in the 24 hours ending 01/31/18136 Physical Exam: Blood pressure 127/68, pulse 57, temperature 36.9 C (98.4 F), height 185.4 cm (73"), weight 129.7 kg (285 lb 15 oz), SpO2 95 %. [place] coma score: E: 4 - Opens eyes on own M: 6 - Follows simple motor commands V: 5 - Alert and oriented Neuro: Mental Status: alert, oriented x3 Cranial Nerves: - Pupil exam: Size: 6 Reactivity: fixed Motor: RUE: Strength: 4/5; RLE: Strength: 4/5; LUE: Strength: 5/5; LLE: Strength: 5/5; Lungs: clear to auscultation bilaterally Pulmonary: Respiratory status: Stable Heart: irregularly irregular rhythm Abdomen: soft, non-tender. Bowel sounds normal. No masses, no organomegaly Extremities: non pitting edea in lower extremities Skin: some skin ulceration in lower extremities Point of Care Testing: (Last 24 hours): Glucose: 89 (01/30/18 2342) Lab Review: Pertinent labs reviewed Radiology and Other Diagnostic Procedures Review: Pertinent radiologic and diagnostic procedures reviewed. Marvin Aparicio, RN RADIATION Date: 01/31/[phone] I spent 60 minutes managing the care of this patient. Mr Henriquez is critically ill with left facial swelling. Cares included: detailed neurologic and systems exam, medication review, laboratory data review and interpretation, electrolyte management, review of available imaging, DVT/PE prophylaxis review, diet review , activity review, and coordination of care with consulted teams in this encounter Miscellaneous Notes * Care Plan - Licha Carrizales RN - 02/06/2018 11:50 AM SCRIPT EDITOR Problem: Neurological Status, Impaired/Altered Goal: Progress toward maximizing functional outcomes Outcome: Goal Achieved Date Met: 02/06/18 Pt is discharged to [facility]. Report given to DARSHAN Chaves. No scripts needed. Discharge education was provided to pt and he verbalized understanding. IV's removed. Pain medication given prior to transport. Vitals are stable, neuro is intact, and pain is controlled. Pt is leaving with a holter monitor and has an envelope to return when completed in 48 hours. 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 Provided patient relations phone number to him and will notify my charge weigher. Goal: Cognitive status restored to baseline Outcome: Goal Achieved Date Met: 02/06/18 Pt is discharged to [facility]. Report given to DARSHAN Chaves. No scripts needed. Discharge education was provided to pt and he verbalized understanding. IV's removed. Pain medication given prior to transport. Vitals are stable, neuro is intact, and pain is controlled. Pt is leaving with a holter monitor and has an envelope to return when completed in 48 hours. 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 Provided patient relations phone number to him and will notify my charge weigher. Problem: Respiratory Impairment (Non-Ventilated Patient) Goal: Effective gas exchange Outcome: Goal Achieved Date Met: 02/06/18 Pt is discharged to [facility]. Report given to DARSHAN Chaves. No scripts needed. Discharge education was provided to pt and he verbalized understanding. IV's removed. Pain medication given prior to transport. Vitals are stable, neuro is intact, and pain is controlled. Pt is leaving with a holter monitor and has an envelope to return when completed in 48 hours. 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 Provided patient relations phone number to him and will notify my charge weigher. Problem: Self-Care Deficit Goal: Maximize ADL functioning Outcome: Goal Achieved Date Met: 02/06/18 Pt is discharged to [facility]. Report given to DARSHAN Chaves. No scripts needed. Discharge education was provided to pt and he verbalized understanding. IV's removed. Pain medication given prior to transport. Vitals are stable, neuro is intact, and pain is controlled. Pt is leaving with a holter monitor and has an envelope to return when completed in 48 hours. 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 Provided patient relations phone number to him and will notify my charge weigher. Problem: Mobility/Activity Intolerance Goal: Maximize functional ADL's and mobility outcomes Outcome: Goal Achieved Date Met: 02/06/18 Pt is discharged to [facility]. Report given to DARSHAN Chaves. No scripts needed. Discharge education was provided to pt and he verbalized understanding. IV's removed. Pain medication given prior to transport. Vitals are stable, neuro is intact, and pain is controlled. Pt is leaving with a holter monitor and has an envelope to return when completed in 48 hours. 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 Provided patient relations phone number to him and will notify my charge weigher. Problem: Pain Goal: Management of pain Outcome: Goal Achieved Date Met: 02/06/18 Pt is discharged to [facility]. Report given to DARSHAN Chaves. No scripts needed. Discharge education was provided to pt and he verbalized understanding. IV's removed. Pain medication given prior to transport. Vitals are stable, neuro is intact, and pain is controlled. Pt is leaving with a holter monitor and has an envelope to return when completed in 48 hours. 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 Provided patient relations phone number to him and will notify my charge weigher. Goal: Knowledge of pain management Outcome: Goal Achieved Date Met: 02/06/18 Pt is discharged to [facility]. Report given to DARSHAN Chaves. No scripts needed. Discharge education was provided to pt and he verbalized understanding. IV's removed. Pain medication given prior to transport. Vitals are stable, neuro is intact, and pain is controlled. Pt is leaving with a holter monitor and has an envelope to return when completed in 48 hours. 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 Provided patient relations phone number to him and will notify my charge weigher. Problem: Infection, Risk of Goal: Absence of infection Outcome: Goal Achieved Date Met: 02/06/18 Pt is discharged to [facility]. Report given to DARSHAN Chaves. No scripts needed. Discharge education was provided to pt and he verbalized understanding. IV's removed. Pain medication given prior to transport. Vitals are stable, neuro is intact, and pain is controlled. Pt is leaving with a holter monitor and has an envelope to return when completed in 48 hours. 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 Provided patient relations phone number to him and will notify my charge weigher. Goal: Knowledge of Infection Control Procedures Outcome: Goal Achieved Date Met: 02/06/18 Pt is discharged to [facility]. Report given to DARSHAN Chaves. No scripts needed. Discharge education was provided to pt and he verbalized understanding. IV's removed. Pain medication given prior to transport. Vitals are stable, neuro is intact, and pain is controlled. Pt is leaving with a holter monitor and has an envelope to return when completed in 48 hours. 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 Provided patient relations phone number to him and will notify my charge weigher. Problem: Falls, High Risk of Goal: Absence of falls-Adult Patient Outcome: Goal Achieved Date Met: 02/06/18 Pt is discharged to [facility]. Report given to DARSHAN Chaves. No scripts needed. Discharge education was provided to pt and he verbalized understanding. IV's removed. Pain medication given prior to transport. Vitals are stable, neuro is intact, and pain is controlled. Pt is leaving with a holter monitor and has an envelope to return when completed in 48 hours. 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 Provided patient relations phone number to him and will notify my charge weigher. Goal: Absence of Falls-Pediatric patient Outcome: Goal Achieved Date Met: 02/06/18 Pt is discharged to [facility]. Report given to DARSHAN Chaves. No scripts needed. Discharge education was provided to pt and he verbalized understanding. IV's removed. Pain medication given prior to transport. Vitals are stable, neuro is intact, and pain is controlled. Pt is leaving with a holter monitor and has an envelope to return when completed in 48 hours. 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 Provided patient relations phone number to him and will notify my charge weigher. * Case Mgmt Tika Romero - 02/06/2018 10:24 AM SCRIPT EDITOR Request to Arrange Patient Transportation Received request from Alecia Perez [facility] to arrange transportation for pt to [facility] [address]. Date and time: 02/06 @ 1115 Transport company: [facility] [phone] Type of transport: Wheelchair van Cost of transport: $371 to be paid by [facility] per VINNY Pavon [employer] For further assistance please contact [facility] *[phone] * Case Mgmt Alecia Shah - 02/06/2018 10:04 AM SCRIPT EDITOR Formatting of this note may be different from the original. Case Management Progress Note NAME:Fidel Henriquez :1950 AGE: 67 y.o. ADMISSION DATE: 01/30/2018 DAYS ADMITTED: LOS: 6 days Todays Date: 02/06/2018 Plan SW met with the neurosurgery team regarding POC and d/c planning. Pt is medically ready to transition to [facility] today, with cardiology and ENT follow up appointments scheduled. SW called and left a vm with pt's daughter. Transport is set up ([facility] w/c van: [phone]) for grape picker at 11:15am. Interventions ? Support Pt has in home support through [employer], which includes his daughter Geneva 15 hours/ week. ? Info or Referral ? Discharge Planning Pt has been approved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 bilateral loss 0 9. Best Language-describe cookie jar picture, name objects, read sentences. May use repeating, writing, stereognosis 0=normal 1=mild-mod aphasia (diff but partly comprehensible) 2=severe aphasia (almost no info exchanged) 3=mute, global aphasia, coma. No 1 step commands 0 10. Dysarthria-read list of words 0=normal 1=mild-mod; slurred but intelligible 2=severe; unintelligible or mute 1 11. Extinction/Neglect-simultaneously touch patient on both hands, show fingers in both visual jackson, ask about deficit, left hand 0=normal, none detected. ( visual loss alone) 1=neglects or extinguishes to double simult stimulation in any modality 2=profound neglect in more than one modality 0 Score 4 Lab/Radiology/Other Diagnostic Tests: Pertinent labs reviewed Glucose: 89 (01/30/18 2342) Associated attestation - Chas Braden DO - 01/31/2018 1:36 PM SCRIPT EDITOR Formatting of this note may be different from the original. ATTESTATION I personally performed the byrne portions of the E/M visit, discussed case with resident and concur with resident documentation of history, physical exam, assessment, and treatment plan unless otherwise noted. Patient and daughter report ongoing weakness for the past few months, but report increased weakness on Fri (3 days ago). He reports that the weakness is slightly worse on the left, but also does report pain with movement on the left side. MRI head without evidence of ischemic infarct History and imaging not consistent with stroke, therefore no further stroke work up at this time. Will sign off, please call with questions. Staff name: Chas Braden DO Date: 01/31/2018 in this encounter Plan of Treatment Name Priority Associated Diagnoses Date/Time CULTURE-FUNGAL,CSF Specimen 02/02/2018 12:45 PM SCRIPT EDITOR in Lab Name Priority Associated Diagnoses Order Schedule ECG 12-LEAD STAT ONE TIME for 1 Occurrences starting 02/04/2018 until 02/04/2018 as of this encounter Procedures Procedure Name Priority Date/Time Associated Diagnosis Comments ECG-SCAN 02/03/2018 Results for this 7:30 AM SCRIPT EDITOR procedure are in the results section. ECG-SCAN 02/03/2018 Results for this 7:30 AM SCRIPT EDITOR procedure are in the results section. in this encounter Results * POC GLUCOSE (02/06/2018 7:57 AM) Component Value Ref Range Glucose, POC 163 (H) 70 - 100 MG/DL Specimen Performing Laboratory MAIN LAB [address] [place] [address] * PHOSPHORUS (02/06/2018 5:52 AM) Component Value Ref Range Phosphorus 3.0 2.0 - 4.0 MG/DL Specimen Performing Laboratory Blood MAIN LAB [address] [place] [address] * MAGNESIUM (02/06/2018 5:52 AM) Component Value Ref Range Magnesium 2.3 1.6 - 2.6 mg/dL Specimen Performing Laboratory Blood MAIN LAB [address] [place] [id number] * CBC AND DIFF (02/06/2018 5:52 AM) Component Value Ref Range White Blood Cells [...] K/UL Specimen Performing Laboratory Blood MAIN LAB [address] [place] [address] * BASIC METABOLIC PANEL (02/06/2018 5:52 AM) Component Value Ref Range Sodium 139 137 [...] questions. Specimen Performing Laboratory Blood MAIN LAB [address] [place] [address] * POC GLUCOSE (02/05/2018 9:04 PM) Component Value Ref Range Glucose, POC 188 (H) 70 - 100 MG/DL Specimen Performing Laboratory MAIN LAB [address] [place] [address] * POC GLUCOSE (02/05/2018 4:40 PM) Component Value Ref Range Glucose, POC 134 (H) 70 - 100 MG/DL Specimen Performing Laboratory MAIN LAB [address] [place], [place] [id number] * POC GLUCOSE (02/05/2018 10:15 AM) Component Value Ref Range Glucose, POC 164 (H) 70 - 100 MG/DL Specimen Performing Laboratory MAIN LAB [address] [place], [place] [id number] * POC GLUCOSE (02/05/2018 10:06 AM) Component Value Ref Range Glucose, POC 153 (H) 70 - 100 MG/DL Specimen Performing Laboratory MAIN LAB [address] [place] [address] * DOBUTAMINE MPI STRESS TEST (02/05/2018 9:17 [...] Peak BP - Oneil 85 Study Number [id number] Referring Provider Gerry Mccoy MD Rest Dose [...] Division of Nuclear Cardiac Imaging Consultation Report EXAMINATION:ADAC Gated [id number] Chloride myocardial perfusion single-photon emission computed tomography for viability, resting regional wall function, post stress ejection fraction, and perfusion imaging utilizing dobutamine pharmacological stress. Date of Study:02/05/18 Study #:[id number] [facility] Billing ID:[id number] Referring Physician:Gerry Mccoy MD Requested by:France Crawford [...] At peak infusion approximately 3.5 mCi of [id number] Chloride was injected intravenously. Throughout the dobutamine stress continuous electrocardiographic monitoring and serial electrocardiograms were obtained as well as intermittent blood pressure recordings. Planar and gated tomographic images were then acquired approximately 5-10 minutes after discontinuation of dobutamine infusion.The patient returned in approximately 4 hours and received an additional intravenous injection of 0.9 mCi of [id number] Chloride as a reinjected dose to assist [...] Conclusion:Pharmacologic stress ECG is negative for ischemia. Njxidlmxo-yn-Ppxiamflqf Count Ratio:0.49(normal=or < 0.52). Scintigraphic (planar/tomographic):Planar images [...] to predicted annual cardiovascular mortality rate. * PHOSPHORUS (02/05/2018 3:55 AM) Component Value Ref Range Phosphorus 3.7 2.0 - 4.0 MG/DL Specimen Performing Laboratory Blood MAIN LAB [address] [place] [address] * MAGNESIUM (02/05/2018 3:55 AM) Component Value Ref Range Magnesium 2.2 1.6 - 2.6 mg/dL Specimen Performing Laboratory Blood MAIN LAB [address] [place] [address] * CBC AND DIFF (02/05/2018 3:55 AM) Component Value Ref Range White Blood Cells 10.7 4.5 - 11.0 K/UL RBC 4.22 (L) 4.4 - 5.5 M/UL Hemoglobin 12.6 (L) 13.5 - 16.5 GM/DL Hematocrit 38.4 (L) 40 - 50 % MCV 91.0 80 - 100 FL MCH 30.0 26 - 34 PG MCHC 33.0 32.0 - 36.0 G/DL RDW 15.5 (H) 11 - 15 % Platelet Count 147 (L) 150 - 400 K/UL MPV 7.4 7 - 11 FL Neutrophils 59 41 - 77 % Lymphocytes 32 24 - 44 % Monocytes 6 4 - 12 % Eosinophils 3 0 - 5 % Basophils 0 0 - 2 % Absolute Neutrophil Count 6.20 1.8 - 7.0 K/UL Absolute Lymph Count 3.40 1.0 - 4.8 K/UL Absolute Monocyte Count 0.70 0 - 0.80 K/UL Absolute Eosinophil Count 0.30 0 - 0.45 K/UL Absolute Basophil Count 0.00 0 - 0.20 K/UL Specimen Performing Laboratory Blood MAIN LAB [address] [place], [place] [id number] * BASIC METABOLIC PANEL (02/05/2018 3:55 AM) Component Value Ref Range Sodium 138 137 - 147 MMOL/L Potassium 3.8 3.5 - 5.1 MMOL/L Chloride 108 98 - 110 MMOL/L CO2 22 21 - 30 MMOL/L Anion Gap 8 3 - 12 Glucose 166 (H) 70 - 100 MG/DL Blood Urea Nitrogen 21 7 - 25 MG/DL Creatinine 0.86 0.4 - 1.24 MG/DL Calcium 8.8 8.5 [...] questions. Specimen Performing Laboratory Blood MAIN LAB [address] [place], [place] [id number] * POC TROPONIN (02/04/2018 9:54 PM) Component Value Ref Range Tyjgzqab-S-JSH 0.00 0.00 - 0.05 NG/ML Specimen Performing Laboratory MAIN LAB [address] [place] [address] * BLOOD BANK SAMPLE HOLD (02/04/2018 9:53 PM) Component Value Ref Range BB Sample hold IN LAB Specimen Performing Laboratory MAIN LAB [address] [place] [address] * PHOSPHORUS (02/04/2018 9:53 PM) Component Value Ref Range Phosphorus 2.5 2.0 - 4.0 MG/DL Specimen Performing Laboratory Blood MAIN LAB [address] [place], [place] [id number] * MAGNESIUM (02/04/2018 9:53 PM) Component Value Ref Range Magnesium 2.2 1.6 - 2.6 mg/dL Specimen Performing Laboratory Blood MAIN LAB [address] [place] [address] * LACTIC ACID (BG - RAPID LACTATE) (02/04/2018 9:53 PM) Component Value Ref Range Lactic Acid,BG 2.5 (H) 0.5 - 2.0 MMOL/L Specimen Performing Laboratory Blood MAIN LAB [address] [place] [address] * TROPONIN-I (02/04/2018 9:53 PM) Component Value Ref Range Troponin-I 0.01 0.0 - 0.05 NG/ML Specimen Performing Laboratory Blood MAIN LAB [address] [place] [address] * COMPREHENSIVE METABOLIC PANEL (02/04/2018 9:53 PM) [...] questions. Specimen Performing Laboratory Blood MAIN LAB [address] [place] [address] * PTT (APTT) (02/04/2018 9:53 PM) Component Value Ref Range APTT 29.9 21.0 - 39.0 SEC Specimen Performing Laboratory Blood MAIN LAB [address] [place] [address] * PROTIME INR (PT) (02/04/2018 9:53 PM) Component Value Ref Range INR 1.0 0.8 - 1.2 Specimen Performing Laboratory Blood [facility] [address] [place] [address] 83284 * CBC (02/04/2018 9:53 PM) Component Value [...] - 11 FL Specimen Performing Laboratory Blood [facility] [address] [place] [address] * POC GLUCOSE (02/04/2018 9:28 PM) Component Value Ref Range Glucose, POC 198 (H) 70 - 100 MG/DL Specimen Performing Laboratory [facility] [address] [place] [address] 370[address] * POC GLUCOSE (02/04/2018 5:54 PM) Component Value Ref Range Glucose, POC 150 (H) 70 - 100 MG/DL Specimen Performing Laboratory [facility] [address] [place] [address] 17279 * POC GLUCOSE (02/04/2018 5:23 PM) Component Value Ref Range Glucose, POC 141 (H) 70 - 100 MG/DL Specimen Performing Laboratory [facility] [address] [place] [address] 64[address] * POC GLUCOSE (02/04/2018 11:48 AM) Component Value Ref Range Glucose, POC 150 (H) 70 - 100 MG/DL Specimen Performing Laboratory [facility] [address] [place] [address] 7[address]94 * POTASSIUM (02/04/2018 9:37 AM) Component Value Ref Range Potassium 3.6 3.5 - 5.1 MMOL/L Specimen Performing Laboratory [facility] [address] [place] [address] 87076 * TROPONIN-I (02/04/2018 9:37 AM) Component Value Ref Range Troponin-I 0.01 0.0 - 0.05 NG/ML Specimen Performing Laboratory Blood MAIN LAB [address] [place] [address] * POC GLUCOSE (02/04/2018 7:18 AM) Component Value Ref Range Glucose, POC 150 (H) 70 - 100 MG/DL Specimen Performing Laboratory MAIN LAB [address] [place] [address] * PHOSPHORUS (02/04/2018 4:26 AM) Component Value Ref Range Phosphorus 4.1 (H) 2.0 - 4.0 MG/DL Specimen Performing Laboratory Blood MAIN LAB [address] [place] [address] 86985 * MAGNESIUM (02/04/2018 4:26 AM) Component Value Ref Range Magnesium 2.1 1.6 - 2.6 mg/dL Specimen Performing Laboratory Blood MAIN LAB [address] [place] [address]47 * CBC AND DIFF (02/04/2018 4:26 AM) Component Value Ref Range White Blood Cells 9.6 4.5 - 11.0 K/UL RBC 4.21 (L) 4.4 - 5.5 M/UL Hemoglobin 12.7 (L) 13.5 - 16.5 GM/DL Hematocrit 38.0 (L) 40 - 50 % MCV 90.2 80 - 100 FL MCH 30.2 26 - 34 PG MCHC 33.4 32.0 - 36.0 G/DL RDW 15.6 (H) 11 - 15 % Platelet Count 143 (L) 150 - 400 K/UL MPV 7.1 7 - 11 FL Neutrophils 58 41 - 77 % Lymphocytes 31 24 - 44 % Monocytes 7 4 - 12 % Eosinophils 3 0 - 5 % Basophils 1 0 - 2 % Absolute Neutrophil Count 5.70 1.8 - 7.0 K/UL Absolute Lymph Count 3.00 1.0 - 4.8 K/UL Absolute Monocyte Count 0.70 0 - 0.80 K/UL Absolute Eosinophil Count 0.30 0 - 0.45 K/UL Absolute Basophil Count 0.10 0 - 0.20 K/UL Specimen Performing Laboratory Blood MAIN LAB [address] [place] [address] * BASIC METABOLIC PANEL (02/04/2018 4:26 AM) Component Value Ref Range Sodium 137 137 - 147 MMOL/L Potassium 3.2 (L) 3.5 - 5.1 MMOL/L Chloride 105 98 - 110 MMOL/L CO2 23 21 - 30 MMOL/L Anion Gap 9 3 - 12 Glucose 198 (H) 70 - 100 MG/DL Blood Urea Nitrogen 24 7 - 25 MG/DL Creatinine 0.95 0.4 - 1.24 MG/DL Calcium 8.8 8.5 [...] Pharmacist for questions. Specimen Performing Laboratory Blood [facility] [address] [place] [address] * POC GLUCOSE (02/03/2018 8:39 PM) Component Value Ref Range Glucose, POC 225 (H) 70 - 100 MG/DL Specimen Performing Laboratory [facility] [address] [place], [place] [id number] * POC GLUCOSE (02/03/2018 5:47 PM) Component Value Ref Range Glucose, POC 133 (H) 70 - 100 MG/DL Specimen Performing Laboratory [facility] [address] [place], [place] [id number] * POC GLUCOSE (02/03/2018 1:32 PM) Component Value Ref Range Glucose, POC 150 (H) 70 - 100 MG/DL Specimen Performing Laboratory [facility] [address] [place] [address] * POC GLUCOSE (02/03/2018 8:06 AM) Component Value Ref Range Glucose, POC 165 (H) 70 - 100 MG/DL Specimen Performing Laboratory [facility] [address] [place] [address] * ECG-SCAN (02/03/2018 7:30 AM) Narrative Ordered by an unspecified provider. * ECG-SCAN (02/03/2018 7:30 AM) Narrative Ordered by an unspecified provider. * IONIZED CALCIUM (02/03/2018 4:25 AM) Component Value Ref Range Ionized Calcium 1.16 1.0 - 1.3 MMOL/L Specimen Performing Laboratory Blood [facility] [address] [place], [place] [id number] * MAGNESIUM (02/03/2018 4:25 AM) Component Value Ref Range Magnesium 2.2 1.6 - 2.6 mg/dL Specimen Performing Laboratory Blood MAIN LAB [address] [place] [id number] * PHOSPHORUS (02/03/2018 4:25 AM) Component Value Ref Range Phosphorus 3.7 2.0 - 4.0 MG/DL Specimen Performing Laboratory Blood MAIN LAB [address] [place] [id number] * CBC AND DIFF (02/03/2018 4:25 AM) Component Value Ref Range White Blood Cells 8.4 4.5 - 11.0 K/UL RBC 4.28 (L) 4.4 - 5.5 M/UL Hemoglobin 12.9 (L) 13.5 - 16.5 GM/DL Hematocrit 39.1 (L) 40 - 50 % MCV 91.4 80 - 100 FL MCH 30.1 26 - 34 PG MCHC 32.9 32.0 - 36.0 G/DL RDW 15.6 (H) 11 - 15 % Platelet Count 148 (L) 150 - 400 K/UL MPV 7.2 7 - 11 FL Neutrophils 58 41 - 77 % Lymphocytes 33 24 - 44 % Monocytes 7 4 - 12 % Eosinophils 1 0 - 5 % Basophils 1 0 - 2 % Absolute Neutrophil Count 4.90 1.8 - 7.0 K/UL Absolute Lymph Count 2.70 1.0 - 4.8 K/UL Absolute Monocyte Count 0.60 0 - 0.80 K/UL Absolute Eosinophil Count 0.10 0 - 0.45 K/UL Absolute Basophil Count 0.00 0 - 0.20 K/UL Specimen Performing Laboratory Blood MAIN LAB [address] [place] [address] * BASIC METABOLIC PANEL (02/03/2018 4:25 AM) Component Value Ref Range Sodium 140 137 - 147 MMOL/L Potassium 3.7 3.5 - 5.1 MMOL/L Chloride 106 98 - 110 MMOL/L CO2 26 21 - 30 MMOL/L Anion Gap 8 3 - 12 Glucose 158 (H) 70 - 100 MG/DL Blood Urea Nitrogen 26 (H) 7 - 25 MG/DL Creatinine 1.11 0.4 - 1.24 MG/DL Calcium 8.8 8.5 [...] Performing Laboratory Blood [facility] MAIN LAB [address] [place] [address] * POC GLUCOSE (02/02/2018 9:08 PM) Component Value Ref Range Glucose, POC 162 (H) 70 - 100 MG/DL Specimen Performing Laboratory [facility] MAIN LAB [address] [place] [address] * POC GLUCOSE (02/02/2018 5:39 PM) Component Value Ref Range Glucose, POC 182 (H) 70 - 100 MG/DL Specimen Performing Laboratory [facility] MAIN [facility] [address] [place] [address] * IR LUMBAR PUNCTURE (02/02/2018 12:54 PM) [...] with pressure measurements Clinical History: Suspected meningitis LAUNDRY MARKER SUPERVISOR: VIOLETA Francis ATTENDING: Rick Dia M.D. Total [...] Interface, Radiant Results - 02/02/2018 4:01 PM SCRIPT EDITOR Fluoroscopic guided lumbar puncture with pressure measurements Clinical History: Suspected meningitis LAUNDRY MARKER SUPERVISOR: VIOLETA Francis ATTENDING: Rick Dia M.D. Total [...] FINAL 02/02/2018 Specimen Performing Laboratory Cerebrospinal Fluid MAIN LAB [address] [place] [address]59 * CULTURE-CSF W/SENSITIVITY (02/02/2018 12:45 PM) Component Value Ref Range Battery Name CSF CULTURE Specimen Description CSF Special Requests NONE Direct Gram Stain NO NEUTROPHILS SEEN NO ORGANISMS SEEN Culture NO GROWTH 3 DAYS Report Status FINAL 02/05/2018 Specimen Performing Laboratory Cerebrospinal fluid - [facility] Cerebrospinal Fluid [address] [place] [address]753 * GLUCOSE-CSF (02/02/2018 12:45 PM) Component Value Ref Range Glucose,CSF 73 40 - 75 MG/DL Xanthrochromia,CSF NONE Specimen Performing Laboratory Cerebrospinal fluid - [facility] Cerebrospinal Fluid [address] [place] [address] * TOTAL PROTEIN-CSF (02/02/2018 12:45 PM) Component Value Ref Range Total Protein,CSF 58 (H) 15 - 45 MG/DL Specimen Performing Laboratory Cerebrospinal fluid - [facility] Cerebrospinal Fluid [address] [place] [address] 19822 * CELL COUNT W/DIFF-CSF (02/02/2018 12:45 PM) [...] report. Specimen Performing Laboratory Cerebrospinal fluid - [facility] Cerebrospinal Fluid [address] [place] [address] 78509 * POC GLUCOSE (02/02/2018 11:19 AM) Component Value Ref Range Glucose, POC 101 (H) 70 - 100 MG/DL Specimen Performing Laboratory [facility] [address] [place] [address] 26006 * POC GLUCOSE (02/02/2018 9:44 AM) Component Value Ref Range Glucose, POC 111 (H) 70 - 100 MG/DL Specimen Performing Laboratory [facility] [address] [place] [address]124 * IONIZED CALCIUM (02/02/2018 4:05 AM) Component Value Ref Range Ionized Calcium 1.07 1.0 - 1.3 MMOL/L Specimen Performing Laboratory Blood [address] [address] * MAGNESIUM (02/02/2018 4:05 AM) Component Value Ref Range Magnesium 2.5 1.6 - 2.6 mg/dL Specimen Performing Laboratory Blood [facility] [address] [place] [address] 81508 * PHOSPHORUS (02/02/2018 4:05 AM) Component Value Ref Range Phosphorus 3.0 2.0 - 4.0 MG/DL Specimen Performing Laboratory Blood [facility] [address] [place] [address] 89574 * CBC AND DIFF (02/02/2018 4:05 AM) Component Value Ref Range White Blood Cells 11.3 (H) 4.5 - 11.0 K/UL RBC 4.13 (L) 4.4 - 5.5 M/UL Hemoglobin 12.4 (L) 13.5 - 16.5 GM/DL Hematocrit 36.3 (L) 40 - 50 % MCV 87.7 80 - 100 FL MCH 30.1 26 - 34 PG MCHC 34.3 32.0 - 36.0 G/DL RDW 15.6 (H) 11 - 15 % Platelet Count 140 (L) 150 - 400 K/UL MPV 8.3 7 - 11 FL Neutrophils 61 41 - 77 % Lymphocytes 31 24 - 44 % Monocytes 6 4 - 12 % Eosinophils 1 0 - 5 % Basophils 1 0 - 2 % Absolute Neutrophil Count 6.90 1.8 - 7.0 K/UL Absolute Lymph Count 3.40 1.0 - 4.8 K/UL Absolute Monocyte Count 0.70 0 - 0.80 K/UL Absolute Eosinophil Count 0.10 0 - 0.45 K/UL Absolute Basophil Count 0.10 0 - 0.20 K/UL Specimen Performing Laboratory Blood MAIN LAB [address] [place] [address]180 * BASIC METABOLIC PANEL (02/02/2018 4:05 AM) Component Value Ref Range Sodium 138 137 - 147 MMOL/L Potassium 3.9 3.5 - 5.1 MMOL/L Chloride 107 98 - 110 MMOL/L CO2 23 21 - 30 MMOL/L Anion Gap 8 3 - 12 Glucose 110 (H) 70 - 100 MG/DL Blood Urea Nitrogen 22 7 - 25 MG/DL Creatinine 0.93 0.4 - 1.24 MG/DL Calcium 8.7 8.5 - 10.6 MG/DL eGFR Non >60 [...] questions. Specimen Performing Laboratory Blood MAIN LAB [address] [place] [address]00 * POC GLUCOSE (02/01/2018 8:39 PM) Component Value Ref Range Glucose, POC 155 (H) 70 - 100 MG/DL Specimen Performing Laboratory MAIN LAB [address] [place] [address] 99844 * POC GLUCOSE (02/01/2018 5:30 PM) Component Value Ref Range Glucose, POC 184 (H) 70 - 100 MG/DL Specimen Performing Laboratory MAIN LAB [address] [place] [address] 63296 * POC GLUCOSE (02/01/2018 12:32 PM) Component Value Ref Range Glucose, POC 215 (H) 70 - 100 MG/DL Specimen Performing Laboratory MAIN LAB [address] [place] [address]55 * POC GLUCOSE (02/01/2018 8:58 AM) Component Value Ref Range Glucose, POC 174 (H) 70 - 100 MG/DL Specimen Performing Laboratory MAIN LAB [address] [place] [address]237 * POC GLUCOSE (02/01/2018 4:40 AM) Component Value Ref Range Glucose, POC 177 (H) 70 - 100 MG/DL Specimen Performing Laboratory [facility] [address] [place] [address] 96599 * ALBUMIN (02/01/2018 4:40 AM) Component Value Ref Range Albumin 3.3 (L) 3.5 - 5.0 G/DL Specimen Performing Laboratory Blood [facility] [address] [place], [place] [id number] * PHENYTOIN, TOTAL (DILANTIN) (02/01/2018 4:40 AM) Component Value Ref Range Phenytoin 2.7 (L) 10.0 - 20.0 MCG/ML Specimen Performing Laboratory Blood [facility] [address] [place], [place] [id number] * IONIZED CALCIUM (02/01/2018 4:40 AM) Component Value Ref Range Ionized Calcium 1.01 1.0 - 1.3 MMOL/L Specimen Performing Laboratory Blood [facility] [address] [place], [place] [id number] * MAGNESIUM (02/01/2018 4:40 AM) Component Value Ref Range Magnesium 2.2 1.6 - 2.6 mg/dL Specimen Performing Laboratory Blood [facility] [address] [place], [place] [id number] * PHOSPHORUS (02/01/2018 4:40 AM) Component Value Ref Range Phosphorus 2.9 2.0 - 4.0 MG/DL Specimen Performing Laboratory Blood [facility] [address] [place], [place] [id number] * CBC AND DIFF (02/01/2018 4:40 AM) Component Value Ref Range White Blood Cells 10.6 4.5 - 11.0 K/UL RBC 4.05 (L) 4.4 - 5.5 M/UL Hemoglobin 12.0 (L) 13.5 - 16.5 GM/DL Hematocrit 36.6 (L) 40 - 50 % MCV 90.5 80 - 100 FL MCH 29.8 26 - 34 PG MCHC 32.9 32.0 - 36.0 G/DL RDW 15.3 (H) 11 - 15 % Platelet Count 144 (L) 150 - 400 K/UL MPV 7.3 7 - 11 FL Neutrophils 86 (H) 41 - 77 % Lymphocytes 12 (L) 24 - 44 % Monocytes 2 (L) 4 - 12 % Eosinophils 0 0 - 5 % Basophils 0 0 - 2 % Absolute Neutrophil Count 9.10 (H) 1.8 - 7.0 K/UL Absolute Lymph Count 1.20 1.0 - 4.8 K/UL Absolute Monocyte Count 0.20 0 - 0.80 K/UL Absolute Eosinophil Count 0.00 0 - 0.45 K/UL Absolute Basophil Count 0.00 0 - 0.20 K/UL Specimen Performing Laboratory Blood MAIN LAB [address] [place] [address]397 * BASIC METABOLIC PANEL (02/01/2018 4:40 AM) Component Value Ref Range Sodium 139 137 - 147 MMOL/L Potassium 4.5 3.5 - 5.1 MMOL/L Chloride 112 (H) 98 - 110 MMOL/L CO2 18 (L) 21 - 30 MMOL/L Anion Gap 9 3 - 12 Glucose 180 (H) 70 - 100 MG/DL Blood Urea Nitrogen 22 7 - 25 MG/DL Creatinine 0.87 0.4 - 1.24 MG/DL Calcium 8.2 (L) 8.5 - 10.6 MG/DL eGFR Non >60 [...] questions. Specimen Performing Laboratory Blood MAIN LAB [address] [place] [id number] * POC GLUCOSE (01/31/2018 9:31 PM) Component Value Ref Range Glucose, POC 220 (H) 70 - 100 MG/DL Specimen Performing Laboratory MAIN LAB [address] [place] [address] * POC GLUCOSE (01/31/2018 5:39 PM) Component Value Ref Range Glucose, POC 166 (H) 70 - 100 MG/DL Specimen Performing Laboratory MAIN LAB [address] [place] [id number] * POC GLUCOSE (01/31/2018 4:22 PM) Component Value Ref Range Glucose, POC 139 (H) 70 - 100 MG/DL Specimen Performing Laboratory [facility] [address] [place] [address] * POTASSIUM (01/31/2018 4:12 PM) Component Value Ref Range Potassium 4.8 3.5 - 5.1 MMOL/L Specimen Performing Laboratory Blood MAIN LAB [address] [place] [address] * 2-D + DOPPLER ECHOCARDIOGRAM (01/31/2018 11:45 [...] A Santosh 0.61 m/s MV Peak E Sanotsh PW 0.59 m/s Right Heart Systolic 1.74 [...] artery NA mmHg pressure Cardiology Ultrasound Siemens [id number] Machine ECHO EF 55 % Specimen Performing Laboratory OTHER OUTSIDE LAB Narrative LVEF=50-55%, Poor Visualization. Mid To Distal Anteroseptal Hypokinesis: See Contrast Views Apical Series #70 And #74. Mild Concentric LVH Mild Left Atrial Dilatation Mild Aortic Valve Regurgitation No Pericardial Effusion Mild RV Dilatation TAPSE=1.7cm * TROPONIN-I (01/31/2018 10:46 AM) Component Value Ref Range Troponin-I 0.01 0.0 - 0.05 NG/ML Specimen Performing Laboratory Blood [facility] [address] [address] * CT INT AUD CANAL WO CONTRAST [...] Interface, Radiant Results - 01/31/2018 1:48 PM SCRIPT EDITOR EXAM: CT INTERNAL AUDITORY CANAL HISTORY: 67-year-old [...] Roger M.D. on 01/31/2018 12:29 PM. * POC GLUCOSE (01/31/2018 8:43 AM) Component Value Ref Range Glucose, POC 108 (H) 70 - 100 MG/DL Specimen Performing Laboratory [facility] [address] [place] [id number] * TROPONIN-I (01/31/2018 5:09 AM) Component Value Ref Range Troponin-I 0.01 0.0 - 0.05 NG/ML Specimen Performing Laboratory Blood [facility] [address] [place] [address] * MRI ORBIT FACE AND/OR NECK WO/W [...] Interface, Radiant Results - 01/31/2018 5:05 AM SCRIPT EDITOR EXAM: MRI BRAIN (ORBITAL PROTOCOL) HISTORY: Hygroma [...] Interface, Radiant Results - 01/31/2018 5:05 AM SCRIPT EDITOR EXAM: MRI BRAIN (ORBITAL PROTOCOL) HISTORY: Hygroma [...] Woodard M.D. on 01/31/2018 4:21 AM. * ALBUMIN (01/31/2018 2:55 AM) Component Value Ref Range Albumin 3.3 (L) 3.5 - 5.0 G/DL Specimen Performing Laboratory Blood MAIN [facility] [address] [place] [address] * PHENYTOIN, TOTAL (DILANTIN) (01/31/2018 2:55 AM) Component Value Ref Range Phenytoin 2.7 (L) 10.0 - 20.0 MCG/ML Specimen Performing Laboratory Blood MAIN [facility] [address] [place] [address] * HEMOGLOBIN A1C (01/31/2018 2:55 AM) Component Value Ref Range Hemoglobin A1C 6.9 (H) 4.0 - 6.0 % Comment: The ADA recommends that most patients with type 1 and type 2 diabetes maintain an A1c level <7%. Specimen Performing Laboratory Blood [facility]IN [facility] [address] [place] [address] 486[address] * IONIZED CALCIUM (01/31/2018 2:55 AM) Component Value Ref Range Ionized Calcium 1.02 1.0 - 1.3 MMOL/L Specimen Performing Laboratory Blood [facility] [address] [place] [address] * MAGNESIUM (01/31/2018 2:55 AM) Component Value Ref Range Magnesium 2.1 1.6 - 2.6 mg/dL Specimen Performing Laboratory Blood [facility]IN [facility] [address] [place] [address] * PHOSPHORUS (01/31/2018 2:55 AM) Component Value Ref Range Phosphorus 3.3 2.0 - 4.0 MG/DL Specimen Performing Laboratory Blood MAIN [facility] [address] [place] [address] * CBC AND DIFF (01/31/2018 2:55 AM) Component Value Ref Range White Blood Cells 11.1 (H) 4.5 - 11.0 K/UL RBC 4.16 (L) 4.4 - 5.5 M/UL Hemoglobin 12.6 (L) 13.5 - 16.5 GM/DL Hematocrit 36.7 (L) 40 - 50 % MCV 88.1 80 - 100 FL MCH 30.2 26 - 34 PG MCHC 34.3 32.0 - 36.0 G/DL RDW 15.6 (H) 11 - 15 % Platelet Count 146 (L) 150 - 400 K/UL MPV 7.6 7 - 11 FL Neutrophils 59 41 - 77 % Lymphocytes 30 24 - 44 % Monocytes 7 4 - 12 % Eosinophils 3 0 - 5 % Basophils 1 0 - 2 % Absolute Neutrophil Count 6.70 1.8 - 7.0 K/UL Absolute Lymph Count 3.30 1.0 - 4.8 K/UL Absolute Monocyte Count 0.80 0 - 0.80 K/UL Absolute Eosinophil Count 0.30 0 - 0.45 K/UL Absolute Basophil Count 0.10 0 - 0.20 K/UL Specimen Performing Laboratory Blood MAIN [facility] [address] [place] [address] * BASIC METABOLIC PANEL (01/31/2018 2:55 AM) Component Value Ref Range Sodium 139 137 - 147 MMOL/L Potassium 3.6 3.5 - 5.1 MMOL/L Chloride 109 98 - 110 MMOL/L CO2 23 21 - 30 MMOL/L Anion Gap 7 3 - 12 Glucose 90 70 - 100 MG/DL Blood Urea Nitrogen 23 7 - 25 MG/DL Creatinine 1.12 0.4 - 1.24 MG/DL Calcium 8.0 (L) 8.5 - 10.6 MG/DL eGFR Non >60 [...] questions. Specimen Performing Laboratory Blood MAIN [facility] [address] [place] [address] * C REACTIVE PROTEIN (CRP) (01/31/2018 2:55 AM) Component Value Ref Range C-Reactive Protein 2.40 (H) <1.0 MG/DL Specimen Performing Laboratory Blood MAIN LAB [address] [place], [place] [id number] * SED RATE (01/31/2018 2:55 AM) Component Value Ref Range Sed Rate -ESR 19 0 - 20 MM/HR Specimen Performing Laboratory Blood MAIN [facility] [address] [place] [address] * LACTIC ACID(LACTATE) (01/31/2018 2:55 AM) Component Value Ref Range Lactic Acid 0.9 0.5 - 2.0 MMOL/L Specimen Performing Laboratory Blood MAIN [facility] [address] [place] [address] * IONIZED CALCIUM (01/30/2018 11:42 PM) Component Value Ref Range Ionized Calcium 0.96 (L)Comment: CHECKED 1.0 - 1.3 MMOL/L Specimen Performing Laboratory Blood MAIN LAB [address] [place], [place] [id number] * BNP (B-TYPE NATRIURETIC PEPTI) (01/30/2018 11:42 PM) Component Value Ref Range B Type Natriuretic 161.0 (H) 0 - 100 PG/ML Peptide Specimen Performing Laboratory Blood [facility]IN [facility] [address] [place] [address]15[address] * LIPID PROFILE (01/30/2018 11:42 PM) Component [...] mg/dL. Specimen Performing Laboratory Blood MAIN [facility] [address] [place] [address] 360[address] * TROPONIN-I (01/30/2018 11:42 PM) Component Value Ref Range Troponin-I 0.01 0.0 - 0.05 NG/ML Specimen Performing Laboratory Blood MAIN [facility] [address] [place] [address] 35605 * PHOSPHORUS (01/30/2018 11:42 PM) Component Value Ref Range Phosphorus 3.3 2.0 - 4.0 MG/DL Specimen Performing Laboratory Blood MAIN [facility] [address] [place] [address] * MAGNESIUM (01/30/2018 11:42 PM) Component Value Ref Range Magnesium 2.3 1.6 - 2.6 mg/dL Specimen Performing Laboratory Blood MAIN [facility] [address] [place] [address]8548 * PROTIME INR (PT) (01/30/2018 11:42 PM) Component Value Ref Range INR 1.1 0.8 - 1.2 Specimen Performing Laboratory Blood MAIN [facility] [address] [place] [address]40 * PTT (APTT) (01/30/2018 11:42 PM) Component Value Ref Range APTT 28.9 21.0 - 39.0 SEC Specimen Performing Laboratory Blood MAIN [facility] [address] [place] [address] * BASIC METABOLIC PANEL (01/30/2018 11:42 PM) Component Value Ref Range Sodium 141 137 - 147 MMOL/L Potassium 4.0 3.5 - 5.1 MMOL/L Chloride 108 98 - 110 MMOL/L CO2 24 21 - 30 MMOL/L Anion Gap 9 3 - 12 Glucose 89 70 - 100 MG/DL Blood Urea Nitrogen 24 7 - 25 MG/DL Creatinine 1.22 0.4 - 1.24 MG/DL Calcium 8.7 8.5 - 10.6 MG/DL eGFR Non 59 (L) >60 mL/min Comment: The eGFR is not [...] Specimen Performing Laboratory Blood MAIN [facility] [address] [place] [address] * CBC AND DIFF (01/30/2018 11:42 PM) Component Value Ref Range White Blood Cells 11.9 (H) 4.5 - 11.0 K/UL RBC 4.32 (L) 4.4 - 5.5 M/UL Hemoglobin 12.9 (L) 13.5 - 16.5 GM/DL Hematocrit 39.4 (L) 40 - 50 % MCV 91.3 80 - 100 FL MCH 30.0 26 - 34 PG MCHC 32.8 32.0 - 36.0 G/DL RDW 15.8 (H) 11 - 15 % Platelet Count 165 150 - 400 K/UL MPV 7.1 7 - 11 FL Neutrophils 61 41 - 77 % Lymphocytes 28 24 - 44 % Monocytes 7 4 - 12 % Eosinophils 3 0 - 5 % Basophils 1 0 - 2 % Absolute Neutrophil Count 7.30 (H) 1.8 - 7.0 K/UL Absolute Lymph Count 3.40 1.0 - 4.8 K/UL Absolute Monocyte Count 0.80 0 - 0.80 K/UL Absolute Eosinophil Count 0.40 0 - 0.45 K/UL Absolute Basophil Count 0.10 0 - 0.20 K/UL Specimen Performing Laboratory Blood MAIN [facility] [address] [place] [address] * CT HEAD EXTERNAL IMAGING (01/30/2018 12:30 [...] does not contain a result. * CT HEAD EXTERNAL IMAGING (10/22/2016) Narrative This order has been auto finalized and does not contain a result. in this encounter Visit Diagnoses Diagnosis Other chronic nonsuppurative otitis media of left ear - Primary Chronic diffuse otitis externa of left ear Diagnosis unknown Other unknown and unspecified cause of morbidity or mortality Ptosis of eyelid, left Unspecified ptosis of eyelid Left-sided face pain Headache PVC (premature ventricular contraction) Other premature beats Other chest pain Essential hypertension Unspecified essential hypertension Morbid obesity (HCC) Morbid obesity Type 2 diabetes mellitus with other specified complication, without long-term current use of insulin (HCC) Ataxia Lack of coordination Weakness Other malaise and fatigue Dysphonia Atypical facial pain Atypical face pain Weakness of left lower extremity Abnormal gait Abnormality of gait Hygroma Lymphangioma, any site HTN (hypertension) Unspecified essential hypertension АНДРЕЙ (obstructive sleep apnea) Obstructive sleep apnea (adult) (pediatric) Admitting Diagnoses Diagnosis stroke like symptoms Hygroma Administered Medications Medication Order MAR Action Action Date Dose Rate Site acetaminophen (TYLENOL) tablet 650 mg Given 02/04/2018 650 mg 650 mg, Oral, EVERY 4 HOURS PRN, 23:06 SCRIPT EDITOR Starting 01/31/18 at 0050, Until Fri02/06/18 at 1519, Temp > ..., 38.3 C, TOTAL ACETAMINOPHEN DOSE NOT TO EXCEED 4GM DAILY allopurinol (ZYLOPRIM) tablet 100 mg Given 02/04/2018 100 mg 100 mg, Oral, DAILY, First dose on Sat 09:00 SCRIPT EDITOR 01/31/18 at 0900, Until Discontinued Given 02/05/2018 100 mg 10:24 SCRIPT EDITOR Given 02/06/2018 100 mg 08:59 SCRIPT EDITOR amLODIPine (NORVASC) tablet 5 mg Given 02/04/2018 5 mg 5 mg, Oral, DAILY, First dose on Sat 09:00 SCRIPT EDITOR 01/31/18 at 0900, Until Discontinued, NURSING: Please educate patient and document: Do not give with grapefruit juice. Given 02/05/2018 5 mg 10:22 SCRIPT EDITOR Given 02/06/2018 5 mg 08:59 SCRIPT EDITOR aspirin EC tablet 81 mg Given 02/06/2018 81 mg 81 mg, Oral, DAILY, First dose on Fri 08:59 SCRIPT EDITOR 02/06/18 at 0900, Until Discontinued aspirin tablet 325 mg Given 02/03/2018 325 mg 325 mg, Oral, DAILY, First dose on Sat 09:45 SCRIPT EDITOR 01/31/18 at 0100, Until Discontinued Given 02/04/2018 325 mg 08:59 SCRIPT EDITOR Given 02/05/2018 325 mg 10:23 SCRIPT EDITOR atenolol (TENORMIN) tablet 100 mg Given 02/04/2018 100 mg 100 mg, Oral, DAILY, First dose on Sat 08:59 SCRIPT EDITOR 01/31/18 at 0900, Until Discontinued, Hold for heart rate < 60 bpm or systolic BP < 90 Given 02/05/2018 100 mg 10:22 SCRIPT EDITOR Given 02/06/2018 100 mg 08:57 SCRIPT EDITOR atorvastatin (LIPITOR) tablet 20 mg Given 02/03/2018 20 mg 20 mg, Oral, AT BEDTIME DAILY, First 21:57 SCRIPT EDITOR dose on 02/01/18 at 2100, Until Discontinued Given 02/04/2018 20 mg 20:26 SCRIPT EDITOR Given 02/05/2018 20 mg 22:32 SCRIPT EDITOR baclofen (LIORESAL) tablet 10 mg Given 02/05/2018 10 mg 10 mg, Oral, THREE TIMES DAILY, First 14:34 SCRIPT EDITOR dose on 01/31/18 at 0115, Until Discontinued Given 02/05/2018 10 mg 22:31 SCRIPT EDITOR Given 02/06/2018 10 mg 08:59 SCRIPT EDITOR bisacodyl (DULCOLAX) rectal suppository Given 02/02/2018 10 mg 10 mg 14:33 SCRIPT EDITOR 10 mg, Rectal, DAILY, First dose on 02/02/18 at 0900, Until Discontinued, May hold if BM within 24 hours of dose. Given 02/03/2018 10 mg 21:57 SCRIPT EDITOR bumetanide (BUMEX) tablet 1 mg Given 02/05/2018 1 mg 1 mg, Oral, TWICE DAILY, First dose on 10:22 SCRIPT EDITOR 01/31/18 at 0900, Until Discontinued Given 02/05/2018 1 mg 17:21 SCRIPT EDITOR Given 02/06/2018 1 mg 08:58 SCRIPT EDITOR carboxymethylcellulose (REFRESH PLUS) Given 02/05/2018 1 drop 0.5 % ophthalmic solution 1 drop 17:21 SCRIPT EDITOR 1 drop, Both Eyes, FOUR TIMES DAILY, First dose on 02/01/18 at 0045, Until Discontinued Given 02/05/2018 1 drop 22:32 SCRIPT EDITOR Given 02/06/2018 1 drop 08:59 SCRIPT EDITOR cefTRIAXone (ROCEPHIN) IVP 1 g Given 02/02/2018 1 g 1 g, Intravenous, EVERY 24 HOURS, 5 14:32 SCRIPT EDITOR doses, First dose on 01/31/18 at 1145, Last dose on 02/04/18 at 1145, INSTR: IV PUSH -- RECONSTITUTE EACH 1 GM WITH 10 MLS 0.9% NACL Given 02/03/2018 1 g 11:46 SCRIPT EDITOR Given 02/04/2018 1 g 11:44 SCRIPT EDITOR dexamethasone (DECADRON) injection 8 mg Given 01/31/2018 8 mg 8 mg, Intravenous, 1 mL, Administer over 13:41 SCRIPT EDITOR 5 Minutes, EVERY 8 HOURS, 3 doses, First dose on 01/31/18 at 1400, Last dose on 02/01/18 at 0600, Administration of IV Push Dexamethasone (on Non-Critical Care Units): - Adults: Administer doses of 10 mg or less diluted in 10 mL of NS or D5W IV Push over 5 minutes. Doses greater than 10mg should be administered via Piggyback. - Pediatrics: Administer doses of 10 mg or less diluted in 5-10 mL of NS or D5W IV Push over 5 minutes. Doses greater than 10mg should be administered via Piggyback. Administration of IV Push Dexamethasone (on Non-Critical Care Units): - Adults: Administer doses of 10 mg or less diluted in 10 mL of NS or D5W IV Push over 5 minutes. Doses greater than 10mg should be administered via Piggyback. - Pediatrics: Administer doses of 10 mg or less diluted in 5-10 mL of NS or D5W IV Push over 5 minutes. Doses greater than 10mg should be administered via Piggyback. Given 01/31/2018 8 mg 21:14 SCRIPT EDITOR Given 02/01/2018 8 mg 06:42 SCRIPT EDITOR docusate (COLACE) capsule 100 mg Given 02/04/2018 100 mg 100 mg, Oral, TWICE DAILY, First dose on 08:59 SCRIPT EDITOR 01/31/18 at 0115, Until Discontinued, Hold for loose stools Given 02/04/2018 100 mg 20:26 SCRIPT EDITOR Given 02/05/2018 100 mg 10:24 SCRIPT EDITOR erythromycin (ROMYCIN) ophthalmic Given 02/03/2018 0.5 inches ointment 0.5 inch 21:59 SCRIPT EDITOR 0.5 inch, Both Eyes, AT BEDTIME DAILY, First dose on 02/02/18 at 2100, Until Discontinued Given 02/04/2018 0.5 inches 20:26 SCRIPT EDITOR Given 02/05/2018 0.5 inches 23:24 SCRIPT EDITOR fentaNYL citrate PF (SUBLIMAZE) Given 01/31/2018 25 mcg injection 25 mcg 13:41 SCRIPT EDITOR 25 mcg, Intravenous, ONCE, 1 dose, 01/31/18 at 1345 finasteride (PROSCAR) tablet 5 mg Given 02/04/2018 5 mg 5 mg, Oral, DAILY, First dose on Sat 09:00 SCRIPT EDITOR 01/31/18 at 0900, Until Discontinued, NOTE: If or wanting to become , do not handle broken tablets without gloves due to risk of defects. Given 02/05/2018 5 mg 10:23 SCRIPT EDITOR Given 02/06/2018 5 mg 08:59 SCRIPT EDITOR gabapentin (NEURONTIN) capsule 800 mg Given 02/05/2018 800 mg 800 mg, Oral, EVERY 8 HOURS, First dose 14:34 SCRIPT EDITOR on 01/31/18 at 0115, Until Discontinued Given 02/05/2018 800 mg 22:32 SCRIPT EDITOR Given 02/06/2018 800 mg 06:16 SCRIPT EDITOR gadobenate dimeglumine (MULTIHANCE) Given 01/31/2018 20 mL injection 20 mL 04:24 SCRIPT EDITOR 20 mL, Intravenous, ONCE, 1 dose, 01/31/18 at 0430, NOTE: This is a HIGH ALERT Medication. heparin (porcine) PF syringe 5,000 Units Given 02/01/2018 5,000 Units Abdomen:LLQ 5,000 Units, Subcutaneous, EVERY 8 13:43 SCRIPT EDITOR HOURS, 2 doses, First dose on 02/01/18 at 1400, Last dose on 02/01/18 at 2200, NOTE: This is a HIGH ALERT Medication. Given 02/01/2018 5,000 Units Abdominal 21:55 SCRIPT EDITOR Tissue heparin (porcine) PF syringe 5,000 Units Given 02/05/2018 5,000 Units Abdominal 5,000 Units, Subcutaneous, EVERY 8 14:34 SCRIPT EDITOR Tissue HOURS, First dose on 02/02/18 at 2200, Until Discontinued, NOTE: This is a HIGH ALERT Medication. Given 02/05/2018 5,000 Units Abdomen:LLQ 22:31 SCRIPT EDITOR Given 02/06/2018 5,000 Units Abdomen:RLQ 06:16 SCRIPT EDITOR HYDROcodone/acetaminophen (NORCO) 5/325 Given 02/03/2018 2 tablets mg tablet 1-2 tablet 21:58 SCRIPT EDITOR 1-2 tablet, Oral, EVERY 4 HOURS PRN, Starting 01/31/18 at 0050, Until 02/06/18 at 1519, Pain PO, TOTAL ACETAMINOPHEN DOSE NOT TO EXCEED 4GM DAILY NOTE: This is a HIGH ALERT Medication. Given 02/04/2018 2 tablets 04:17 SCRIPT EDITOR Given 02/06/2018 2 tablets 11:29 SCRIPT EDITOR insulin aspart U-100 (NOVOLOG FLEXPEN) Given 02/05/2018 2 Units Abdominal injection PEN 0-14 Units 10:29 SCRIPT EDITOR Tissue 0-14 Units, Subcutaneous, BEFORE MEALS AND AT BEDTIME, First dose on Fri02/01/18 at 0730, Until Discontinued, -POC glucose 140-180mg/dL at , , administer 2 units insulin, at 21, 03* administer 0 units. -POC glucose 181-220mg/dL at , administer 4 units insulin, at 21, 03* administer 2 units. -POC glucose 221-260mg/dL at , administer 6 units insulin, at 21, 03* administer 4 units. -POC glucose 261-300mg/dL at , administer 8 units insulin, at , 03* administer 6 units. -POC glucose 301-350mg/dL at , administer 10 units insulin, at 21, 03* administer 8 units. -POC glucose 351-400mg/dL at administer 12 units insulin, at , 03* administer 10 units. -POC glucose >400mg/dL at , , administer 14 units insulin, at 21, 03* administer 12 units. *only if ordered 5x's daily For POCT glucose >350mg/dL give correction bolus and recheck POCT glucose in 2 hours. If POCT glucose at 2 hours >300mg/dL call physician for further orders. For patients who are not eating meals, continue to administer the appropriate correction factor. NOTE: This is a HIGH ALERT Medication. Given 02/05/2018 2 Units Arm, Left 23:27 SCRIPT EDITOR Given 02/06/2018 2 Units Arm, Left 09:01 SCRIPT EDITOR insulin aspart U-100 (NOVOLOG FLEXPEN) Given 01/31/2018 1 Units Abdomen :LLQ injection PEN 0-7 Units 17:40 SCRIPT EDITOR 0-7 Units, Subcutaneous, FIVE TIMES DAILY, First dose on 01/31/18 at 0315, Until Discontinued, -POC glucose 140-180mg/dL at , , administer 1 unit insulin, at 21, 03* administer 0 units. -POC glucose 181-220mg/dL at , , administer 2 units insulin, at , 03* administer 1 unit. -POC glucose 221-260mg/dL at , , administer 3 units insulin, at , 03* administer 2 units. -POC glucose 261-300mg/dL at , , administer 4 units insulin, at , * administer 3 units. -POC glucose 301-350mg/dL at , , administer 5 units insulin, at , * administer 4 units. -POC glucose 351-400mg/dL at , , administer 6 units insulin, at , * administer 5 units. -POC glucose >400mg/dL at , , administer 7 units insulin, at , * administer 6 units. *only if ordered 5x's daily For POCT glucose >350mg/dL give correction bolus and recheck POCT glucose in 2 hours. If POCT glucose at 2 hours >300mg/dL call physician for further orders. For patients who are not eating meals, continue to administer the appropriate correction factor. NOTE: This is a HIGH ALERT Medication. Given 01/31/2018 1 Units Arm, Right 21:32 SCRIPT EDITOR lidocaine (LIDODERM) 5 % topical patch 1 Patch 02/03/2018 1 patch Back , Lower patch Applied 21:59 SCRIPT EDITOR Left 1 patch, Topical, Administer over 12 Hours, EVERY 24 HOURS, First dose on 01/31/18 at 0100, Until Discontinued, NURSING PLEASE NOTE: Apply patch ONCE DAILY to affected areas and REMOVE after designated duration. Apply only to intact skin. Patch may be cut to fit affected area. Patch Applied 02/04/2018 1 patch Back 22:53 SCRIPT EDITOR Patch Applied 02/05/2018 1 patch Back 22:29 SCRIPT EDITOR lidocaine 1 % (10mg/mL) injection 50 mL Given 01/31/2018 50 mL 50 mL, Injection, ONCE, 1 dose, Sat 13:42 SCRIPT EDITOR 01/31/18 at 1330 lisinopril (PRINIVIL; ZESTRIL) tablet 20 Given 02/04/2018 20 mg mg 09:00 SCRIPT EDITOR 20 mg, Oral, DAILY, First dose on 01/31/18 at 0900, Until Discontinued Given 02/05/2018 20 mg 10:23 SCRIPT EDITOR Given 02/06/2018 20 mg 08:59 SCRIPT EDITOR loratadine (CLARITIN) tablet 10 mg Given 02/04/2018 10 mg 10 mg, Oral, DAILY, First dose on Sat 09:00 SCRIPT EDITOR 01/31/18 at 0900, Until Discontinued Given 02/05/2018 10 mg 10:24 SCRIPT EDITOR Given 02/06/2018 10 mg 08:58 SCRIPT EDITOR milk of magnesia (CONC) oral suspension Given 02/03/2018 10 mL 10 mL 09:52 SCRIPT EDITOR 10 mL, Oral, DAILY, First dose on 01/31/18 at 0900, Until Discontinued, May hold if BM within 24 hours of dose. 10 mL CONC=30 mL MOM Given 02/04/2018 10 mL 08:59 SCRIPT EDITOR Given 02/05/2018 10 mL 10:29 SCRIPT EDITOR mirtazapine (REMERON) tablet 45 mg Given 02/03/2018 45 mg 45 mg, Oral, AT BEDTIME DAILY, First 21:58 SCRIPT EDITOR dose on 01/31/18 at 0115, Until Discontinued, Place tablet on tongue Given 02/04/2018 45 mg 20:26 SCRIPT EDITOR Given 02/05/2018 45 mg 22:37 SCRIPT EDITOR nitroglycerin (NITROSTAT) tablet 0.4 mg Given 02/04/2018 0.4 mg 0.4 mg, Sublingual, EVERY 5 MIN PRN, 22:02 SCRIPT EDITOR Starting 01/31/18 at 0121, Until 02/06/18 at 1519, Chest Pain, Not to exceed 3 doses per incident of chest pain. Notify physician if chest pain persists after 3 doses. Given 02/04/2018 0.4 mg 22:11 SCRIPT EDITOR Given 02/04/2018 0.4 mg 22:18 SCRIPT EDITOR ofloxacin (FLOXIN) 0.3 % (ophthalmic for Given 02/05/2018 4 drops otic use) solution 4 drop 10:28 SCRIPT EDITOR 4 drop, Both Ears, TWICE DAILY, First dose on 01/31/18 at 1145, Until Discontinued Given 02/05/2018 4 drops 23:22 SCRIPT EDITOR Given 02/06/2018 4 drops 09:[address] (PROTONIX) tablet 40 mg Given 02/03/2018 40 mg 40 mg, Oral, DAILY, First dose on Sat 21:57 SCRIPT EDITOR 01/31/18 at 0100, Until Discontinued, Do not crush or chew tablet. Given 02/04/2018 40 mg 20:26 SCRIPT EDITOR Given 02/05/2018 40 mg 22:31 SCRIPT EDITOR perflutren lipid microspheres (DEFINITY) Given 01/31/2018 1.5 Diluted injection 1-20 Diluted mL 11:46 SCRIPT EDITOR mL 1-20 Diluted mL, Intravenous, ONCE, 1 dose, 01/31/18 at 1145, NOTE: This is a HIGH ALERT Medication. phenytoin SR (DILANTIN) capsule 300 mg Given 02/04/2018 300 mg 300 mg, Oral, DAILY, First dose on Sat 08:59 SCRIPT EDITOR 01/31/18 at 0900, Until Discontinued, NOTE: PHARMACOKINETIC MONITORING Given 02/05/2018 300 mg 10:23 SCRIPT EDITOR Given 02/06/2018 300 mg 08:58 SCRIPT EDITOR potassium chloride oral solution 40 mEq Given 01/31/2018 40 mEq 40 mEq, Oral, ONCE, 1 dose, 01/31/18 10:41 SCRIPT EDITOR at 1015 potassium chloride SR (K-DUR) tablet 40 Given 01/31/2018 40 mEq mEq 09:51 SCRIPT EDITOR 40 mEq, Oral, ONCE, 1 dose, 01/31/18 at 0915, - Tablet may be dispersed in water. Place tab in 30 mL of water for 40-60 seconds. - Gently swirl until fully dispersed. If particles remain after admin, add small amount of water and admin remaining content. - DO NOT CRUSH. Tablet may be split in half. potassium chloride SR (K-DUR) tablet 40 Given 02/04/2018 40 mEq mEq 09:22 SCRIPT EDITOR 40 mEq, Oral, ONCE, 1 dose, 02/04/18 at 0915, Do NOT break or crush tablet potassium chloride SR (K-DUR) tablet 40 Given 02/04/2018 40 mEq mEq 13:25 SCRIPT EDITOR 40 mEq, Oral, ONCE, 1 dose, 02/04/18 at 1330, Do NOT break or crush tablet potassium chloride SR (K-DUR) tablet 40 Given 02/05/2018 40 mEq mEq 05:42 SCRIPT EDITOR 40 mEq, Oral, ONCE, 1 dose, Gisella 02/05/18 at 0530, - Tablet may be dispersed in water. Place tab in 30 mL of water for 40-60 seconds. - Gently swirl until fully dispersed. If particles remain after admin, add small amount of water and admin remaining content. - DO NOT CRUSH. Tablet may be split in half. senna/docusate (SENOKOT-S) tablet 1 Given 02/04/2018 1 tablet tablet 08:59 SCRIPT EDITOR 1 tablet, Oral, TWICE DAILY, First dose on 01/31/18 at 0115, Until Discontinued, Hold for loose stools. If patient unable to take tablet, give 10 mL of senna/docusate (SENOKOT-S) solution. Send [employer] message to pharmacy. Given 02/04/2018 1 tablet 20:26 SCRIPT EDITOR Given 02/05/2018 1 tablet 10:22 SCRIPT EDITOR sertraline (ZOLOFT) tablet 300 mg Given 02/04/2018 300 mg 300 mg, Oral, DAILY, First dose on Sat 08:59 SCRIPT EDITOR 01/31/18 at 0900, Until Discontinued Given 02/05/2018 300 mg 10:23 SCRIPT EDITOR Given 02/06/2018 300 mg 08:58 SCRIPT EDITOR trimethoprim/sulfamethoxazole (BACTRIM Given 02/05/2018 1 tablet DS) 160/800 mg tablet 1 tablet 10:22 SCRIPT EDITOR 1 tablet, Oral, TWICE DAILY, 28 doses, First dose on Gisella 02/05/18 at 0900, Last dose on Fri02/18/18 at 2100 Given 02/05/2018 1 tablet 22:39 SCRIPT EDITOR Given 02/06/2018 1 tablet 08:59 SCRIPT EDITOR in this encounter
--- OUTSIDE RECORDS SUMMARY | 2018-02-08 05:03 | XMS REPORT | Encounter Summary ---
Author Author [facility] Organization [facility] Address Unknown Phone Unavailable Care Team Providers Care Oracle Endeca Consultant Name Role Phone Michael Caro MD Unavailable Tia España MD Unavailable Meera Ruano MD Unavailable Sonia Cano MD Unavailable Telma Malcolm BALANCE ASSEMBLER-BC Unavailable Vincent Quintero MD Unavailable Unavailable Con Rosas MD Unavailable Jesus Tai MD Unavailable Unavailable Murray Russo MD Unavailable Codi Aguirre Unavailable Unavailable Mckay Frias MD Unavailable Siddharth Cortes MD Unavailable Leatha Rajan RN Unavailable Unavailable Nuria Daniel RN Unavailable Unavailable Kati Guerrero BALANCE ASSEMBLER Unavailable Dorys Colunga RN Unavailable Jasmyn Carrasco Unavailable Unavailable Bhavana Haddad BALANCE ASSEMBLER-SHAKER PLATE OPERATOR Unavailable Liza Oglesby MA,CCC-AUTOMOBILE SERVICE STATION ATTENDANT Unavailable Unavailable Edilberto Matute MD Unavailable Unavailable Mckay Walters MD Unavailable Marianne Rosario MA,CCC-AUTOMOBILE SERVICE STATION ATTENDANT Unavailable Unavailable Clint Ayoub RN Unavailable Unavailable Geetha Diez MA,CCC-AUTOMOBILE SERVICE STATION ATTENDANT Unavailable Unavailable Mckay Nathan PA-C Unavailable Evert Jefferson MD Unavailable Serenity Carter MD Unavailable Piedad Oliver RN Unavailable Unavailable Vivi Nelson MD Unavailable Morena Scanlon MD Unavailable Clarence Brink MD Unavailable Jess Savage DO Unavailable Liza Sheth Unavailable Safia Mancia MD PCP Encounter Details Date Type Department Care Team Description 01/30/2018 [facility] Radiology [address] [place] [address] Social History Tobacco Use Types Packs/Day Years [...] impairment: No 01/07/2018 as of this encounter Medications at Time of Discharge [...] twice daily for 14 days. mg tablet docusate (COLACE) 100 mg Take 1 Cap by mouth twice 60 Cap 0 201202/04/2018 capsule daily as needed for Constipation. empagliflozin (JARDIANCE) Take 25 mg by mouth 02/04/2018 25 mg tab daily. HYDROcodone/acetaminophen Take 1 tablet by mouth 40 tablet 0 201702/06/2018 (NORCO) 5/325 mg every 8 hours as needed tabletIndications: Neck for Pain pain VIAGRA 100 mg Take 1 Tab by mouth as 10 Tab 11 12/14/2014 02/04/2018 tabletIndications: ED Needed for Erectile (erectile dysfunction) dysfunction. Take on empty stomach approx 1-4 hrs prior to sexual activity. as of this encounter Plan of Treatment Not on fileas of this encounter Visit Diagnoses Not on filein this encounter
--- OUTSIDE RECORDS SUMMARY | 2018-02-08 05:03 | XMS REPORT | Encounter Summary ---
Author Author [facility] Organization [facility] Address Unknown Phone Unavailable Care Team Providers Care Student Success Counselor Name Role Phone Michael Caro MD Unavailable Tia España MD Unavailable Meera Ruano MD Unavailable Sonia Cano MD Unavailable Telma Malcolm PRINTING PLATE SETTER-BC Unavailable Vincent Quintero MD Unavailable Unavailable Con Rosas MD Unavailable Jesus Tai MD Unavailable Unavailable Murray Russo MD Unavailable Codi Aguirre Unavailable Unavailable Mckay Frias MD Unavailable Siddharth Cortes MD Unavailable Leatha Rajan RN Unavailable Unavailable Nuria Daniel RN Unavailable Unavailable Kati Guerrero PRINTING PLATE SETTER Unavailable Dorys Colunga RN Unavailable Jasmyn Carrasco Unavailable Unavailable Bhavana Haddad PRINTING PLATE SETTER-MICROWAVE OVEN ASSEMBLER Unavailable Liza Oglesby MA,CCC-CARBON PAPER COATING MACHINE SETTER Unavailable Unavailable Edilberto Matute MD Unavailable Unavailable Mckay Walters MD Unavailable Marianne Rosario MA,CCC-CARBON PAPER COATING MACHINE SETTER Unavailable Unavailable Clint Ayoub RN Unavailable Unavailable Geetha Diez MA,CCC-CARBON PAPER COATING MACHINE SETTER Unavailable Unavailable Mckay Nathan PA-C Unavailable Evert Jefferson MD Unavailable Serenity Carter MD Unavailable Piedad Oliver RN Unavailable Unavailable Vivi Nelson MD Unavailable Morena Scanlon MD Unavailable Clarence Brink MD Unavailable Jess Savage DO Unavailable Liza Sheth Unavailable Safia Mancia MD PCP Encounter Details Date Type Department Care Team Description 01/30/2018 [facility] Radiology [address] [place] [address] Social History Tobacco Use Types Packs/Day Years [...]
--- OUTSIDE RECORDS SUMMARY | 2018-02-08 05:03 | XMS REPORT | Encounter Summary ---
Author Author [facility] Organization [facility] Address Unknown Phone Unavailable Care Team Providers Care Epoxy Specialist Name Role Phone Michael Caro MD Unavailable Tia España MD Unavailable Meera Ruano MD Unavailable Sonia Cano MD Unavailable Telma Malcolm STRINGER UP SOLDERING MACHINE-BC Unavailable Vincent Quintero MD Unavailable Unavailable Con Rosas MD Unavailable Jesus Tai MD Unavailable Unavailable Murray Russo MD Unavailable Codi Aguirre Unavailable Unavailable Mckay Frias MD Unavailable Siddharth Cortes MD Unavailable Leatha Rajan RN Unavailable Unavailable Nuria Daniel RN Unavailable Unavailable Kati Guerrero STRINGER UP SOLDERING MACHINE Unavailable Dorys Colunga RN Unavailable aJsmyn Carrasco Unavailable Unavailable Bhavana Haddad STRINGER UP SOLDERING MACHINE-DETAILER FURNITURE Unavailable Liza Oglesby MA,CCC-PARTS INTERPRETER Unavailable Unavailable Edilberto Matute MD Unavailable Unavailable Mckay Walters MD Unavailable Marianne Rosario MA,CCC-PARTS INTERPRETER Unavailable Unavailable Clint Ayoub RN Unavailable Unavailable Geetha Diez MA,CCC-PARTS INTERPRETER Unavailable Unavailable Mckay Nathan PA-C Unavailable Evert Jefferson MD Unavailable Serenity Carter MD Unavailable Piedad Oliver RN Unavailable Unavailable Vivi Nelson MD Unavailable Morena Scanlon MD Unavailable Clarence Brink MD Unavailable Jess Savage DO Unavailable Liza Sheth Unavailable Safia Mancia MD PCP Encounter Details Date Type Department Care Team Description 01/31/2018 [facility] [place] [address] Social History Tobacco Use Types Packs/Day Years [...]
--- OUTSIDE RECORDS SUMMARY | 2018-02-08 05:04 | XMS REPORT | Encounter Summary ---
Author Author [facility] Organization [facility] Address Unknown Phone Unavailable Care Team Providers Care Trauma Director Name Role Phone Michael Caro MD Unavailable Tia España MD Unavailable Meera Ruano MD Unavailable Sonia Cano MD Unavailable Telma Malcolm CONSULTING SALES EXECUTIVE-BC Unavailable Vincent Quintero MD Unavailable Unavailable Con Rosas MD Unavailable Jesus Tai MD Unavailable Unavailable Murray Russo MD Unavailable Codi Aguirre Unavailable Unavailable Mckay Frias MD Unavailable Siddharth Cortes MD Unavailable Leatha Rajan RN Unavailable Unavailable Nuria Daniel RN Unavailable Unavailable Kati Guerrero CONSULTING SALES EXECUTIVE Unavailable Dorys Colunga RN Unavailable Jasmyn Carrasco Unavailable Unavailable Bhavana Haddad CONSULTING SALES EXECUTIVE-RAIMANN MACHINE OPERATOR Unavailable Liza Oglesby MA,CCC-MANAGER CASE Unavailable Unavailable Edilberto Matute MD Unavailable Unavailable Mckay Walters MD Unavailable Marianne Rosario MA,CCC-MANAGER CASE Unavailable Unavailable Clint Ayoub RN Unavailable Unavailable Geetha Diez MA,CCC-MANAGER CASE Unavailable Unavailable Mckay Nathan PA-C Unavailable Evert Jefferson MD Unavailable Serenity Carter MD Unavailable Piedad Oliver RN Unavailable Unavailable Vivi Nelson MD Unavailable Morena Scanlon MD Unavailable Clarence Brink MD Unavailable Janette Jess DO Unavailable Liza Sheth Unavailable Safia Mancia MD PCP Reason for Visit * Reason Comments Medication Refill Encounter Details Date Type Department Care Team Description 01/27/2018 [place] Rehabilitative Medicine [address] [facility] [address] [place] [address] [place] [address] [phone] Social History Tobacco Use Types Packs/Day Years [...] impairment: No 01/07/2018 as of this encounter Miscellaneous Notes * Telephone Encounter - Glynn Montes RN - 01/27/2018 10:53 AM PARADI OPERATOR Call from Maureen at patient pharmacy requesting refill of patient Lido Patches. Patient called for refill of Lido Patch Date of last refill per chart or pharmacy: unknown . Pharmacy Name and Phone/Fax Number: [facility] Provider: Paulina Linton Last office visit: 01/07/18 Follow up appointment: 04/08/18 Refill per protocol. in this encounter Plan of Treatment Not on fileas of this encounter Visit Diagnoses Not on filein this encounter
--- OUTSIDE RECORDS SUMMARY | 2018-02-08 05:04 | XMS REPORT | Encounter Summary ---
Author Author [facility] Organization [facility] Address Unknown Phone Unavailable Care Team Providers Care Nut Grinder Name Role Phone Michael Caro MD Unavailable Tia España MD Unavailable Meera Ruano MD Unavailable Sonia Cano MD Unavailable Telma Malcolm EMT BASIC-BC Unavailable Vincent Quintero MD Unavailable Unavailable Con Rosas MD Unavailable Jesus Tai MD Unavailable Unavailable Murray Russo MD Unavailable Codi Aguirre Unavailable Unavailable Mckay Frias MD Unavailable Siddharth Cortes MD Unavailable Leatha Rajan RN Unavailable Unavailable Nuria Daniel RN Unavailable Unavailable Kati Guerrero EMT BASIC Unavailable Dorys Colunga RN Unavailable Jasmyn Carrasco Unavailable Unavailable Bhavana Haddad EMT BASIC-WHEEL INSPECTOR Unavailable Liza Oglesby MA,CCC-QUALITY OFFICER Unavailable Unavailable Edilberto Matute MD Unavailable Unavailable Mckay Walters MD Unavailable Marianne Rosario MA,CCC-QUALITY OFFICER Unavailable Unavailable Clint Ayoub RN Unavailable Unavailable Geetha Diez MA,CCC-QUALITY OFFICER Unavailable Unavailable Kovarik, Cmkay PA-C Unavailable Evert Jefferson MD Unavailable Serenity Carter MD Unavailable Piedad Oliver RN Unavailable Unavailable Vivi Nelson MD Unavailable Morena Scanlon MD Unavailable Clarence Brink MD Unavailable Janette Jess DO Unavailable Liza Sheth Unavailable Safia Mancia MD PCP Reason for Referral * Pain Authorization Status Reason Specialty Diagnoses / Referred By Referred To Procedures Contact Contact New Request Diagnoses Paulina Linton Spondylosis of lumbosacral [address] myelopathy or [address] radiculopathy [place], [place] [address] syndrome Phone: P [phone] [email or web address] Fax: [facility] [phone] INJECT PVRT FACET MBB JT LMBR/SAC * Pain Authorization Status Reason Specialty Diagnoses / Referred By Referred To Procedures Contact Contact No Auth Needed Rehabilitation Diagnoses Paulina Linton, [facility] Med Medicine Chronic migraine Cl Status post [address] [place], [place] [address] [place]MOD[place]ATION [address] Phone: MUSCLE MIGRAINE [phone] Reason for Visit * Reason Comments Post Procedure BOTOX Encounter Details Date Type Department Care Team Description 12/17/2017 Office Visit Paulina Banegas MD Chronic migraine (Primary Rehabilitative Medicine [address]); [address] Status post craniectomy; [place] [address] [place] [address] Spondylosis of [phone] lumbosacral region without myelopathy or radiculopathy; Baastrup's syndrome Social History Tobacco Use Types Packs/Day Years Used Date Never Smoker Smokeless Tobacco: Never Used Alcohol Use Drinks/Week oz/Week Comments No Sex Assigned at Date Recorded Not on file as of this encounter Last Filed Vital Signs Vital Sign Reading Time Taken Blood Pressure 117/59 12/17/2017 2:47 PM [employer] BI ADMINISTRATOR Pulse 45 12/17/2017 2:47 PM [employer] BI ADMINISTRATOR Temperature - - Respiratory Rate 18 12/17/2017 2:47 PM [employer] BI ADMINISTRATOR Oxygen Saturation 100% 12/17/2017 2:47 PM [employer] BI ADMINISTRATOR Inhaled Oxygen - - Concentration Weight 124.7 kg (275 lb) 12/17/2017 2:47 PM [employer] BI ADMINISTRATOR Height 185.4 cm (6' 1") 12/17/2017 2:47 PM [employer] BI ADMINISTRATOR Body Mass Index 36.28 12/17/2017 2:47 PM [employer] BI ADMINISTRATOR in this encounter Functional Status Functional Status Response Date of Assessment Does the patient have a hearing impairment: Yes 10/01/2017 Does the patient have a visual impairment: No 10/01/2017 Does the patient have impaired ambulation: Yes 10/01/2017 Does the patient have an activity of daily living No 10/01/2017 (ADL) impairment: Does the patient have an instrumental activity of No 10/01/2017 daily living (IADL) impairment: Cognitive Status Response Date of Assessment Does the patient have a cognitive impairment: No 10/01/2017 as of this encounter Instructions * Patient Instructions - Paulina Linton MD - 12/17/2017 3:15 PM [employer] BI ADMINISTRATOR Consider lumbar medial branch blocks for possible radiofrequency ablation in this encounter Progress Notes * Paulina Linton MD - 12/17/2017 3:15 PM [employer] BI ADMINISTRATOR Formatting of this note may be different from the original. [facility] NOTE Subjective SUBJECTIVE: Mr. Henriquez is a 67-year-old male with history of left hemicraniectomy and Baastrop's disease, presents for follow-up on left head pain status post botulinum toxin injection and low back pain. Patient previously underwent botulinum toxin injections to left craniectomy site. He reports a greater than 35% improvement. He has been more functional and able to do activities of daily living without a daily headache. He continues have some neck pain. He is interested in increasing dose for the cervical paraspinals. He would like to repeat botulinum toxin injections given his improvement. He continues to have low back pain. He denies radicular symptoms. No radiation. He is discussed possible spinal cord stimulator with his primary care provider. They have recommended that he avoid this if possible. Review of Systems HENT: Positive for ear discharge, hearing loss, tinnitus and voice change. Respiratory: Positive for cough and shortness of breath. Musculoskeletal: Positive for back pain, neck pain and neck stiffness. Neurological: Positive for weakness. All other systems reviewed and are negative. Current Outpatient Prescriptions on File Prior to Visit Medication Sig Dispense Refill allopurinol (ZYLOPRIM) 100 [...] mouth twice daily as needed for Constipation. 60 Cap 0 empagliflozin (JARDIANCE) 25 mg tab Take 25 mg by mouth daily. finasteride (PROSCAR) 5 mg tablet TAKE 1 TABLET BY MOUTH ONCE DAILY 90 Tab 3 gabapentin (NEURONTIN) 800 mg tablet Take 1 tablet by mouth every 8 hours. ( Patient taking differently: Take 800 mg by mouth three times daily.) 90 tablet 3 glimepiride (AMARYL) 2 mg tablet Take 2 mg by mouth twice daily. HYDROcodone/acetaminophen (NORCO) 5/325 mg tablet Take 1 Tab by mouth every 8 hours as needed for Pain 40 Tab 0 ibuprofen (MOTRIN) 600 mg tablet Take 600 mg by mouth every 12 hours as needed. lidocaine (LIDODERM) 5 % topical patch Apply 1 patch topically to affected area every 24 hours. Apply patch for 12 hours, then remove for 12 hours before repeating. 30 patch 2 lisinopril (PRINIVIL; ZESTRIL) 10 mg tablet Take 20 mg by mouth daily. loratadine (CLARITIN) 10 mg tablet Take 10 mg by mouth daily. meloxicam (MOBIC) 7.5 mg tablet Take 1 tablet by mouth daily. 90 tablet 3 metFORMIN (GLUCOPHAGE) 500 mg tablet Take 500 mg by mouth twice daily with meals. mirtazapine (REMERON) 30 mg tablet Take 1 tablet by mouth at bedtime daily. (Patient taking differently: Take 60 mg by mouth at bedtime daily.) [address](+) (PRILOSEC) 20 mg capsule Take 20 mg by mouth daily. phenytoin SR (DILANTIN) 100 mg capsule Take 3 capsules by mouth daily. 270 capsule 3 potassium chloride SR (K-DUR) 20 mEq tablet Take 20 mEq by mouth daily. sertraline (ZOLOFT) 100 mg tablet Take 3 tablets by mouth daily. 90 tablet 1 sitaGLIPtin (JANUVIA) 100 mg tab tablet Take 100 mg by mouth daily. torsemide(+) (DEMADEX) 20 mg tablet Take 20 mg by mouth twice daily. VIAGRA 100 mg tablet Take 1 Tab by mouth as Needed for Erectile dysfunction. Take on empty stomach approx 1-4 hrs prior to sexual activity. 10 Tab 11 No current facility-administered medications on file prior to visit. No Known Allergies Physical Exam Vitals: 12/17/17 1447 BP: 117/59 Pulse: 45 Resp: 18 SpO2: 100% Weight: 124.7 kg (275 lb) Height: 185.4 cm (73") Pain Score: Three Body mass index is 36.28 kg/(m^2). General: 67 y.o. male appears stated age, in no acute distress HEENT: Normocephalic, atraumatic Neck: No thyroidmegaly Cardiovascular: Well perfused Pulmonary: Unlabored respirations Extremities: No cyanosis, clubbing, or edema Skin: Warm and dry Psychiatric: Appropriate mood and affect Musculoskeletal: Full range of motion with lumbar flexion, extension, and lateral rotation. Tender to palpation at L4-L5 L5-S1 facet joints. Pain is worse with lumbar extension. Tenderness at left craniectomy site. Neurologic: Lower extremity myotomes are all 5/5. Lower extremity dermatomes are all intact to light touch. Deep tendon reflexes are symmetric at patella and achilles. No ankle clonus. IMPRESSION: 1. Chronic migraine 2. Status post craniectomy 3. 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 Henriquez is a 67-year-old male with history of left hemicraniectomy who presents with improved migraine headaches status post botulinum toxin injection and persistent low back pain. History and physical examination are consistent with lumbar spondylosis and Baastrop's disease. PLAN: 1. Lifestyle modification. Recommend activity as tolerated. 2. Medication. He may continue with ibuprofen, gabapentin, and baclofen. 3. Therapy. Continue home exercise program. 4. Interventions. We will repeat botulinum toxin injection. Will increase dose for cervical paraspinals to see if this provides neck pain benefit. We discussed possible medial branch blocks and radiofrequency ablation for his low back. I think this would be the only other procedural option for him unless he wants to try spinal cord stimulator. 5. Follow. Patient is follow-up for botulinum toxin injections. in this encounter Plan of Treatment Name Priority Associated Diagnoses Order Schedule CHEMODENERVATION MUSCLE MIGRAINE Routine Chronic migraine Expected: , Status post craniectomy Expires: 03/17/2018 [facility] INJECT PVRT FACET MBB JT Routine Spondylosis of 2 Occurrences starting LMBR/SAC lumbosacral region 12/17/2017 until without myelopathy or 03/17/2018 radiculopathy Baastrup's syndrome as of this encounter Visit Diagnoses Diagnosis Chronic migraine - Primary Chronic migraine without aura, without mention of intractable migraine without mention of status migrainosus Status post craniectomy Spondylosis of lumbosacral region without myelopathy or radiculopathy Lumbosacral spondylosis without myelopathy Baastrup's syndrome Kissing spine
--- OUTSIDE RECORDS SUMMARY | 2018-02-08 05:04 | XMS REPORT | Encounter Summary ---
Author Author [facility] Organization [facility] Address Unknown Phone Unavailable Care Team Providers Care Cook Taco Name Role Phone Michael Caro MD Unavailable Tia España MD Unavailable Meera Ruano MD Unavailable Sonia Cano MD Unavailable Telma Malcolm ROTARY RIG ENGINE OPERATOR-BC Unavailable Vincent Quintero MD Unavailable Unavailable Con Rossa MD Unavailable Jesus Tai MD Unavailable Unavailable Murray Russo MD Unavailable Codi Aguirre Unavailable Unavailable Mckay Frias MD Unavailable Siddharth Cortes MD Unavailable Leatha Rajan RN Unavailable Unavailable Nuria Daniel RN Unavailable Unavailable Kati Guerrero ROTARY RIG ENGINE OPERATOR Unavailable Dorys Colunga RN Unavailable Jasmyn Carrasco Unavailable Unavailable Bhavana Haddad ROTARY RIG ENGINE OPERATOR-PEOPLESOFT CONSULTANT Unavailable Liza Oglesby MA,CCC-PAUNCH TRIMMER Unavailable Unavailable Edilberto Matute MD Unavailable Unavailable Mckay Walters MD Unavailable Marianne Rosario MA,CCC-PAUNCH TRIMMER Unavailable Unavailable Clint Ayoub RN Unavailable Unavailable Geetha Diez MA,CCC-PAUNCH TRIMMER Unavailable Unavailable Kovarik, Mckay PA-C Unavailable Evert Jefferson MD Unavailable Serenity Carter MD Unavailable Piedad Oliver RN Unavailable Unavailable Vivi Nelson MD Unavailable Morena Scanlon MD Unavailable Clarence Brink MD Unavailable Janette Jess DO Unavailable Domenic Lizakianna TELLEZ Unavailable Safia Mancia MD PCP Reason for Referral * Pain Authorization Status Reason Specialty Diagnoses / Referred By Referred To Procedures Contact Contact New Request Diagnoses Paulina Linton Chronic migraine [address] [place] [address] Reason for Visit * Reason Comments Pain * Pain Authorization Status Reason Specialty Diagnoses / Referred By Referred To Procedures Contact Contact No Auth Needed Rehabilitation Diagnoses Paulina Linton Icc Spn Rehab Med Medicine Chronic migraine Cl Status post [address] [place] [address] [place]MOD[place]ATION [address] Phone: MUSCLE MIGRAINE [phone] Encounter Details Date Type Department Care Team Description 01/07/2018 Procedure visit Paulina Banegas MD Chronic migraine (Primary Rehabilitative Medicine [address] Dx); [address] Status post craniectomy; [place] [address] [place] [address] Neck pain [phone] Social History Tobacco Use Types Packs/Day Years Used Date Never Smoker Smokeless Tobacco: Never Used Alcohol Use Drinks/Week oz/Week Comments No Sex Assigned at Date Recorded Not on file as of this encounter Last Filed Vital Signs Vital Sign Reading Time Taken Blood Pressure 114/67 01/07/2018 3:[address] [facility] [employer] Pulse 55 01/07/2018 3:[address] [facility] [employer] Temperature - - Respiratory Rate - - Oxygen Saturation 97% 01/07/2018 3:[address] [facility] [employer] Inhaled Oxygen - - Concentration Weight 129.3 kg (285 lb) 01/07/2018 3:[address] [facility] Height 185.4 cm (6' 1") 01/07/2018 3:[address] [facility] Body Mass Index 37.6 01/07/2018 3:[address] [facility] [employer] in this encounter Functional Status Functional Status [...] impairment: No 01/07/2018 as of this encounter Instructions * Patient Instructions - Paulina Linton MD - 01/07/2018 3:[address] [employer] Consider interspinous steroid injection or spinal cord stimulator. in this encounter Progress Notes * Paulina Linton MD - 01/07/2018 3:[address] [facility] [employer] Formatting of this note may be different from the original. [facility] NOTE Subjective SUBJECTIVE: Patient is a 67-year-old male history of left craniectomy and [place]'s disease who presents for follow-up of left sided head pain status post botulinum toxin injection low back pain. Patient previously underwent botulinum toxin injections a left craniectomy site to be coming from in October 2017 with significant improvement overall function and ability to perform activities of daily living without daily headache. Continues to have some neck pain that she continues to and was interested in increasing dose for cervical paraspinals whether or not she is having at this procedure visit. Patient states he has had continued neck pain, but is also wondering about the next step in regards to the low back pain from this point forward. Previously had lumbar epidural steroid injection in March 2017, but cannot recall having the procedure done nor his response. Review of Systems Constitutional: Positive for activity change and appetite change. HENT: Positive for ear discharge. Respiratory: Positive for shortness of breath. Musculoskeletal: Positive for neck pain and neck stiffness. All other systems reviewed and are negative. [...] visit. No Known Allergies Physical Exam Vitals: 01/07/18 1514 Weight: 129.3 kg (285 lb) Height: 185.4 cm (73") Pain Score: Five Body mass index is 37.6 kg/m. General: Patient appears stated age, in no acute distress HEENT: Normocephalic, atraumatic Neck: No thyroidmegaly Cardiovascular: Well perfused Pulmonary: Unlabored respirations Extremities: No cyanosis, clubbing, or edema Skin: Warm and dry Psychiatric: Appropriate mood and affect Musculoskeletal: No atrophy Neurologic: Antigravity strength in all extremities IMPRESSION: 1. Chronic migraine 2. Status post craniectomy 3. Neck pain PLAN: We will move forward with scheduled Botox procedure today to treat patient's chronic migraines. We did discuss with him possible interspinous ligament injection versus spinal cord stimulator, but he wants to discuss with his daughter. Patient seen and evaluated with attending Dr. Paulina Linton MD. Freddy Galvin DO Musculoskeletal Medicine and Interventional Spine Fellow Department of Physical Medicine & Rehabilitation ATTESTATION I personally performed the byrne portions of the E/M visit, discussed case with fellow and concur with fellow documentation of history, physical exam, assessment, and treatment plan unless otherwise noted. Staff name: Paulina Linton MD Date: 01/07/18 in this encounter Procedure Notes * Paulina Linton MD - 01/07/2018 3:[address] [employer] Associated Order(s): CHEMODENERVATION MUSCLE MIGRAINE Procedure(s): [place] CHEMODERVATE FACIAL/TRIGEM/CERV MUSC MIGRAINE Pre-Procedure Diagnose(s): Chronic migraine; Status post craniectomy Post-Procedure Diagnose(s): Chronic migraine; Status post craniectomy Patient consented for botulinum toxin injections for [...] the site. Muscles/Sites Injected A - Bilateral Christmas Tree Contractor - 10 units divided in 2 sites B - Midline Procerus - 5 units in 1 site C - Bilateral Frontalis - 20 units divided in 4 sites D - Left Temporalis - 65 units divided in 13 sites E - Bilateral Cervical Paraspinals - 30 units divided in 6 sites F - Bilateral Trapezius - 10 units divided in 2 sites in this encounter Plan of Treatment Name Priority Associated Diagnoses Order Schedule CHEMODENERVATION MUSCLE MIGRAINE Routine Chronic migraine Expected: 05/2018, Expires: 04/07/2018 as of this encounter Procedures Procedure Name Priority Date/Time Associated Diagnosis Comments [place] CHEMODERVATE Routine 01/07/2018 Chronic migraine Results for this FACIAL/TRIGEM/CERV MUSC 3:[address] [employer] procedure are in the MIGRAINE results section. in this encounter Results * CHEMODENERVATION MUSCLE MIGRAINE (01/07/2018 3:15 PM) [...] the site. Muscles/Sites Injected A - Bilateral Christmas Tree Contractor - 10 units divided in 2 sites B - Midline Procerus - 5 units in 1 site C - Bilateral Frontalis - 20 units divided in 4 sites D - Left Temporalis - 65 units divided in 13 sites E - Bilateral Cervical Paraspinals - 30 units divided in 6 sites F - Bilateral Trapezius - 10 units divided in 2 sites in this encounter Visit Diagnoses Diagnosis Chronic migraine - Primary Chronic migraine without aura, without mention of intractable migraine without mention of status migrainosus Status post craniectomy Neck pain Cervicalgia
--- OUTSIDE RECORDS SUMMARY | 2018-02-08 05:04 | XMS REPORT | Encounter Summary ---
Author Author [facility] Organization [facility] Address Unknown Phone Unavailable Care Team Providers Care Senior Net Architect Name Role Phone Michael Caro MD Unavailable Tia España MD Unavailable Meera Ruano MD Unavailable Sonia Cano MD Unavailable Telma Malcolm HEAD BOYS GOLF COACH-BC Unavailable Vincent Quintero MD Unavailable Unavailable Con Rosas MD Unavailable Jesus Tai MD Unavailable Unavailable Murray Russo MD Unavailable Codi Aguirre Unavailable Unavailable Mckay Frias MD Unavailable Siddharth Cortes MD Unavailable Leatha Rajan RN Unavailable Unavailable Nuria Daniel RN Unavailable Unavailable Kati Guerrero HEAD BOYS GOLF COACH Unavailable Dorys Colunga RN Unavailable Jasmyn Carrasco Unavailable Unavailable Bhavana Haddad HEAD BOYS GOLF COACH-SCHOOL CAFETERIA COOK Unavailable Liza Oglesby MA,CCC-THERMOSTAT MAKER Unavailable Unavailable Edilberto Matute MD Unavailable Unavailable Mckay Walters MD Unavailable Marianne Rosario MA,CCC-THERMOSTAT MAKER Unavailable Unavailable Clint Ayoub RN Unavailable Unavailable Geetha Diez MA,CCC-THERMOSTAT MAKER Unavailable Unavailable Mckay Nathan PA-C Unavailable Evert Jefferson MD Unavailable Serenity Carter MD Unavailable Piedad Oliver RN Unavailable Unavailable Vivi Nelson MD Unavailable Morena Scanlon MD Unavailable Clarence Brink MD Unavailable Jess Savage DO Unavailable Liza Sheth Unavailable Safia Mancia MD PCP Encounter Details Date Type Department Care Team Description 01/30/2018 [facility] Radiology [address] [place] [address] Social History Tobacco Use Types Packs/Day Years [...]
--- OUTSIDE RECORDS SUMMARY | 2018-02-08 05:04 | XMS REPORT | Encounter Summary ---
Author Author [facility] Organization [facility] Address Unknown Phone Unavailable Care Team Providers Care Diesel Engine Assembler Name Role Phone Michael Caro MD Unavailable Tia España MD Unavailable Meera Ruano MD Unavailable Sonia Cano MD Unavailable Telma Malcolm SALES ENGINEER ACCOUNT MANAGER-BC Unavailable Vincent Quintero MD Unavailable Unavailable Con Rosas MD Unavailable Jesus Tai MD Unavailable Unavailable Murray Russo MD Unavailable Codi Aguirre Unavailable Unavailable Mckay Frias MD Unavailable Siddharth Cortes MD Unavailable Leatha Rajan RN Unavailable Unavailable Nuria Daniel RN Unavailable Unavailable Kati Guerrero SALES ENGINEER ACCOUNT MANAGER Unavailable Dorys oClunga RN Unavailable Jasmyn Carrasco Unavailable Unavailable Bhavana Haddad SALES ENGINEER ACCOUNT MANAGER-RELIEF WORKER Unavailable Liza Oglesby MA,CCC-RADIO OFFICER Unavailable Unavailable Edilberto Matute MD Unavailable Unavailable Mckay Walters MD Unavailable Marianne Rosario MA,CCC-RADIO OFFICER Unavailable Unavailable Clint Ayoub RN Unavailable Unavailable Geetha Diez MA,CCC-RADIO OFFICER Unavailable Unavailable Mckay Nathan PA-C Unavailable Evert Jefferson MD Unavailable Serenity Carter MD Unavailable Piedad Oliver RN Unavailable Unavailable Vivi Nelson MD Unavailable Morena Scanlon MD Unavailable Clarence Brink MD Unavailable Janette Jess Unavailable Domenic Liza AUD Unavailable Safia Mancia MD PCP Reason for Visit * Reason Comments Medication Refill Encounter Details Date Type Department Care Team Description 12/29/2017 [place] Rehabilitative Medicine [address] [facility] [address] [place] [address] [place] [address] [phone] Social History Tobacco Use Types Packs/Day Years [...] impairment: No 10/01/2017 as of this encounter Miscellaneous Notes * Telephone Encounter - Janki Sorto RN - 12/29/2017 2:57 PM INSTRUMENT TESTER Refill authorized per protocol orders Dr. Paulina Linton. in this encounter Plan of Treatment Not on fileas of this encounter Visit Diagnoses Not on filein this encounter
--- OUTSIDE RECORDS SUMMARY | 2018-02-08 05:04 | XMS REPORT ---
Author LUIS Wilkins Organization [employer] Address Unknown Phone Unavailable Care Team Providers Care Dairy Farm Operator Name Role Phone LUIS OSUNA CP Unavailable Allergies No Known Allergies Problems Problem Type Condition ICD-9 Code Onset Dates Condition Status Assessment Major depressive disorder, recurrent episode, moderate 296.32 Active Problem Major depressive disorder, recurrent episode, moderate 296.32 Active Medications No Known Medications Procedures Procedure Coding System Code Date Psychotherapy, patient &/family, 30 minutes, established patient CPT-4 60207 Jul 31, 2015 [facility] VISIT MENTAL HEALTH ESTAB PT CPT-4 G0470 Jul 31, 2015 Results No Known Results Summary Purpose [employer] Submission
--- OUTSIDE RECORDS SUMMARY | 2018-02-08 05:04 | XMS REPORT | Continuity of Care Document ---
Author Author [facility] Address Unknown Phone Unavailable Allergies Active Description Code Type Severity Reaction Onset Reported/Identified Relationship to Patient Clinical Status Yes NKANo Known Allergies NKA Miscellaneous Allergy Unknown N/A 07/08/2006 Medications There is no data. Problems Date Dx Coded Attending Type Code Diagnosis Diagnosed By 06/29/2009 311 MO DEPRESS NOS 06/29/2009 LUIS OSUNA PHD 311 MO DEPRESS NOS 06/29/2009 LUIS OSUNA PHD 311 MO DEPRESS NOS 06/29/2009 LUIS OSUNA PHD 311 MO DEPRESS NOS 07/14/2009 301.6 PD DEPENDENT 07/14/2009 LUIS OSUNA PHD 301.6 PD DEPENDENT 07/14/2009 LUIS OSUNA PHD 301.6 PD DEPENDENT 07/14/2009 LUIS OSUNA PHD 301.6 PD DEPENDENT 12/20/2010 Ot 300.00 12/20/2010 Ot 345.90 12/20/2010 Ot 356.9 12/20/2010 Ot 428.0 12/20/2010 Ot 530.81 12/20/2010 Ot 780.51 12/20/2010 Ot 786.59 02/08/2015 LUIS OSUNA PHD 296.32 MO DEPRESSIVE RECURRENT MODERATE 02/08/2015 LUIS OSUNA PHD 296.32 MO DEPRESSIVE RECURRENT MODERATE 02/08/2015 LUIS OSUNA PHD 296.32 MO DEPRESSIVE RECURRENT MODERATE 09/11/2015 Ot 780.96 09/11/2015 Ot 790.5 09/30/2015 JESSICA ROMERO MD Ot G47.33 10/31/2015 Ot 780.96 10/31/2015 Ot 790.5 Procedures Code [place] [address] PSYTX PT&/FAMILY 30 MINUTES 03/02/2015 31141 PSYTX PT&/FAMILY 30 MINUTES 03/15/2015 Results There is no data. Encounters ACCT No. Visit Date/Time Discharge Status Pt. Type Provider Facility Loc./Unit Complaint [id number] 03/15/2015:53:00 03/15/2015 23:59:59 CLS Outpatient LUIS OSUNA PHD [id number] 03/02/2015 10:46:00 03/02/2015 23:59:59 CLS Outpatient LUIS OSUNA PHD [id number] 02/13/2015 10:09:00 02/13/2015 23:59:59 CLS Outpatient LUIS OSUNA PHD [id number] 01/15/2010 10:19:00 01/15/2010 23:59:59 CLS Outpatient [id number] 09/29/2015 20:05:00 09/30/2015 07:26:00 DIS Outpatient HEATHER ALATORRE, JESSICA [facility] SLEEP [id number] 02/11/2011 09:47:00 Document Registration [id number] 12/19/2010 12:59:00 Document Registration
--- OUTSIDE RECORDS SUMMARY | 2018-02-08 05:04 | XMS REPORT | Encounter Summary ---
Author Author [facility] Organization [facility] Address Unknown Phone Unavailable Care Team Providers Care Wig Maker Name Role Phone Michael Caro MD Unavailable Tia España MD Unavailable Meera Ruano MD Unavailable Sonia Cano MD Unavailable Telma Malcolm DIPPER MACHINE OPERATOR-BC Unavailable Vincent Quintero MD Unavailable Unavailable Con Rosas MD Unavailable Jesus Tai MD Unavailable Unavailable Murray Russo MD Unavailable Codi Aguirre Unavailable Unavailable Mckay Frias MD Unavailable Siddharth Cortes MD Unavailable Leatha Rajan RN Unavailable Unavailable Nuria Daniel RN Unavailable Unavailable Kati Guerrero DIPPER MACHINE OPERATOR Unavailable Dorys Colunga RN Unavailable Jasmyn Carrasco Unavailable Unavailable Bhavana Haddad DIPPER MACHINE OPERATOR-GRAIN SPOUTER Unavailable Liza Oglesby MA,CCC-GYMNASTICS COACH OR INSTRUCTOR Unavailable Unavailable Edilberto Matute MD Unavailable Unavailable Mckay Walters MD Unavailable Marianne Rosario MA,CCC-GYMNASTICS COACH OR INSTRUCTOR Unavailable Unavailable Clint Ayoub RN Unavailable Unavailable Geetha Diez MA,CCC-GYMNASTICS COACH OR INSTRUCTOR Unavailable Unavailable Mckay Nathan PA-C Unavailable Evert Jefferson MD Unavailable Serenity Carter MD Unavailable Piedad Oliver RN Unavailable Unavailable Vivi Nelson MD Unavailable Morena Scanlon MD Unavailable Clarence Brink MD Unavailable Jess Savage DO Unavailable Liza Sheth Unavailable Safia Mancia MD PCP Encounter Details Date Type Department Care Team Description 01/07/2018 Orders Only Paulina Banegas MD Rehabilitative Medicine [address] [place] [address] [place] [address] [phone] Social History Tobacco Use Types Packs/Day Years [...] MAR Action Action Date Dose Rate Site botulinum toxin A (BOTOX) injection 200 Given 01/07/2018 200 Units Other Units 15:55 DRY FOOD PRODUCTS MIXER 200 Units, Intramuscular, ONCE, 1 dose, 01/07/18 at 1530 in this encounter
[2018-02-08] MEDS: inSUlin (REGULAR) HUMAN 1 UNIT/0.01 ML (CHARGE PER UNIT) SC SCH ×4 (05:51→21:13)
[2018-02-08 06:00] VITALS: BP 114/72
[2018-02-08] MEDS: TRIM/SULFAMETH 160/800 (SEPTRA DS) TAB PO SCH ×2 (06:34→16:17)
[2018-02-08] MEDS: GABAPENTIN 400 MG (NEURONTIN) CAP PO SCH ×3 (06:34→21:03)
[2018-02-08] MEDS: LINAGLIPTIN (TRADJENTA) 5 MG TABLET PO SCH (06:34)
[2018-02-08] MEDS: PANTOPRAZOLE 20 MG TABLET (PROTONIX) PO SCH (06:34)
[2018-02-08] MEDS: metFORMIN 500 MG (GLUCOPHAGE) TAB PO SCH ×2 (06:34→16:18)
[2018-02-08] MEDS: KCL 20 MEQ TAB (K-DUR) PO SCH (06:34)
[2018-02-08] MEDS: GLIMEPIRIDE 2 MG (AMARYL) TAB PO SCH ×2 (06:34→16:17)
[2018-02-08] MEDS: TORSEMIDE 20 MG (DEMADEX) TAB PO SCH ×2 (06:34→16:17)
[2018-02-08] MEDS: predniSONE 10 MG TAB PO SCH (06:35)
[2018-02-08] MEDS: lisINopril 20 MG (PRINIVIL) TABLET PO SCH (09:56)
[2018-02-08] MEDS: ATENOLOL 50 MG (TENORMIN) TAB PO SCH (09:56)
[2018-02-08] MEDS: ASPIRIN E.C. 81 MG (ECOTRIN) TAB PO SCH (09:56)
[2018-02-08] MEDS: ALLOPURINOL 100 MG (ZYLOPRIM) TAB PO SCH (09:56)
[2018-02-08] MEDS: SERTRALINE 100 MG (ZOLOFT) TAB PO SCH (09:56)
[2018-02-08] MEDS: amLODIPine 5 MG (NORVASC) TAB PO SCH (09:56)
[2018-02-08] MEDS: PHENYTOIN 100 MG (DILANTIN) CAP PO SCH (09:56)
[2018-02-08] MEDS: BACLOFEN 10 MG (LIORESAL) TAB PO SCH ×3 (09:56→21:02)
[2018-02-08] MEDS: FINASTERIDE (PROSCAR) 5 MG TAB PO SCH (09:56)
[2018-02-08] MEDS: LORATADINE (CLARITIN) 10 MG TAB PO SCH (09:56)
[2018-02-08] MEDS: DOCUSATE SODIUM 100 MG (COLACE) CAP PO SCH ×2 (09:57→21:02)
[2018-02-08] MEDS: ARTIFICAL TEARS 0.4 ML UNIT DOSE (REFRESH PLUS) OU SCH ×4 (09:58→21:02)
[2018-02-08] MEDS: SENNA W/DOCUSATE (SENOKOT S) TABLET PO SCH ×2 (09:58→21:03)
[2018-02-08] MEDS: NEOMY/POLYM/HC (CORTISPORIN) 10 ML BTL OT SCH ×4 (09:59→21:02)
[2018-02-08] MEDS: LIDOCAINE (LIDODERM) 5% PATCH TOP SCH (10:01)
[2018-02-08 10:02] VITALS: BP 109/67
[2018-02-08 17:01] VITALS: BP 122/67
[2018-02-08] MEDS: ATORVASTATIN 20 MG (LIPITOR) TABLET PO SCH (21:02)
[2018-02-08] MEDS: ERYTHROMYCIN OPHTH OINT 1 GM (SINGLE USE) TUBE OP SCH (21:02)
[2018-02-08] MEDS: MIRTAZAPINE 15 MG (REMERON) TAB PO SCH (21:03)
[2018-02-08] MEDS: LIDOCAINE PATCH REMOVAL TP SCH (21:04)
[2018-02-09 05:51] VITALS: BP 102/57
[2018-02-09] MEDS: GABAPENTIN 400 MG (NEURONTIN) CAP PO SCH ×3 (06:24→21:16)
[2018-02-09] MEDS: PANTOPRAZOLE 20 MG TABLET (PROTONIX) PO SCH (06:24)
[2018-02-09] MEDS: TRIM/SULFAMETH 160/800 (SEPTRA DS) TAB PO SCH ×2 (06:24→17:05)
[2018-02-09] MEDS: GLIMEPIRIDE 2 MG (AMARYL) TAB PO SCH ×2 (06:24→17:05)
[2018-02-09] MEDS: KCL 20 MEQ TAB (K-DUR) PO SCH (06:24)
[2018-02-09] MEDS: TORSEMIDE 20 MG (DEMADEX) TAB PO SCH ×2 (06:24→17:05)
[2018-02-09] MEDS: metFORMIN 500 MG (GLUCOPHAGE) TAB PO SCH ×2 (06:24→17:05)
[2018-02-09] MEDS: LINAGLIPTIN (TRADJENTA) 5 MG TABLET PO SCH (06:24)
[2018-02-09] MEDS: predniSONE 10 MG TAB PO SCH (06:25)
[2018-02-09] MEDS: inSUlin (REGULAR) HUMAN 1 UNIT/0.01 ML (CHARGE PER UNIT) SC SCH ×4 (06:26→21:29)
[2018-02-09 08:39] VITALS: BP 112/73
[2018-02-09] MEDS: PHENYTOIN 100 MG (DILANTIN) CAP PO SCH (08:41)
[2018-02-09] MEDS: FINASTERIDE (PROSCAR) 5 MG TAB PO SCH (08:41)
[2018-02-09] MEDS: ASPIRIN E.C. 81 MG (ECOTRIN) TAB PO SCH (08:41)
[2018-02-09] MEDS: SERTRALINE 100 MG (ZOLOFT) TAB PO SCH (08:41)
[2018-02-09] MEDS: amLODIPine 5 MG (NORVASC) TAB PO SCH (08:41)
[2018-02-09] MEDS: ALLOPURINOL 100 MG (ZYLOPRIM) TAB PO SCH (08:42)
[2018-02-09] MEDS: lisINopril 20 MG (PRINIVIL) TABLET PO SCH (08:42)
[2018-02-09] MEDS: LIDOCAINE (LIDODERM) 5% PATCH TOP SCH (08:42)
[2018-02-09] MEDS: ATENOLOL 50 MG (TENORMIN) TAB PO SCH (08:42)
[2018-02-09] MEDS: LORATADINE (CLARITIN) 10 MG TAB PO SCH (08:42)
[2018-02-09] MEDS: BACLOFEN 10 MG (LIORESAL) TAB PO SCH ×3 (08:42→21:16)
[2018-02-09] MEDS: SENNA W/DOCUSATE (SENOKOT S) TABLET PO SCH ×2 (08:43→21:16)
[2018-02-09] MEDS: DOCUSATE SODIUM 100 MG (COLACE) CAP PO SCH ×2 (08:43→21:16)
[2018-02-09] MEDS: ARTIFICAL TEARS 0.4 ML UNIT DOSE (REFRESH PLUS) OU SCH ×4 (08:43→21:15)
[2018-02-09] MEDS: IBUPROFEN 600 MG (MOTRIN) TAB PO PRN (08:53)
[2018-02-09] MEDS: NEOMY/POLYM/HC (CORTISPORIN) 10 ML BTL OT SCH ×4 (08:54→21:16)
--- NOTE | 2018-02-09 09:10 | Speech Therapy Daily Note ---
Speech Daily Progress Note Subjective Date Seen by Provider: Feb 09, 2018 Time Seen by Provider: 08:25 The patient was seated upright in bed upon entrance. The patient greeted the clinician appropriately and was agreeable to participation in the cognitive treatment session. Objective To gain more accurate details re: cognitive deficits, a standardized examination was provided ([place] Cognitive Assessment- MoCA). The following results were found: - Memory: The patient was able to recall three of five items immediately and zero of five items following a five minute delay. - Attention: The patient was unable to recall five digits forward of complete serial seven subtraction. - Language: The patient was unable to repeat extended sentences, however, did demonstrate excellent word finding ability. - Orientation: The patient was oriented to date, month, year, day, place, and city (independently). The patient demonstrated on overall score of +16/25 display a mild to moderate cognitive impairment in the areas of memory and attention. Assessment Assessment Current Status: Fair Progress Treatment Plan Continue Plan of Care Communication Comprehension: 5 Expression: 5 Social Cognition Social Interaction: 5 Problem Solvin Memory: 4 Speech Short Term Goals Short Term Goals Short Term Goals 1. The patient will demonstrate hyperfunctional voice exercises with 80% accuracy and mild clinician cueing. 2. The patient will demonstrate and recall three functional memory strategies for use at home, independently. Time Frame-STG: One Week Speech Facilities And Grounds Director Goals Facilities And Grounds Director Goals 1. The patient will demonstrated improved expressive communication and cognitive skill for increased function and safety in the least restrictive setting. Time Frame: Three Weeks Comprehension: 5 Expression: 5 Social Interaction: 5 Problem Solvin Memory: 5 Speech-Plan Treatment Plan Speech Therapy Treatment Plan: Continue Plan of Care Continue skilled speech pathology to target functional memory strategies. Treatment Duration: Feb 27, 2018 Frequency: Modified Program (IRF) (Four to five times per week.) Estimated Hrs Per Day: .5 hour per day Rehab Potential: Good Safety Risks/Education Teaching Recipient: Patient Teaching Methods: Discussion Response to Teaching: Verbalize Understanding Education Topics Provided: Results of MoCA Time Speech Therapy Time In: 08:25 Speech Therapy Time Out: 09:05 Total Billed Time: 30 Billed Treatment Time FANI Koehler [facility] Feb 09, 2018 09:10
--- NOTE | 2018-02-09 11:52 | Occupational Ther Daily Note ---
OT Current Status-Daily Note Subjective No pain reported. Appearance Pt. up in chair with PT. Agrees to work with OT as well. Mental Status/Objective Patient Orientation: Person, Place, Time, Situation Functional [place] Measure 0=Not Assessed/NA 4=Minimal Assistance 1=Total Assistance 5=Supervision or Setup 2=Maximal Assistance 6=Modified [place] 3=Moderate Assistance 7=Complete [place] ADL-Treatment Functional [place] Measure 0=Not Assessed/NA 4=Minimal Assistance 1=Total Assistance 5=Supervision or Setup 2=Maximal Assistance 6=Modified [place] 3=Moderate Assistance 7=Complete IndependenceIRFPAI Quality Coding Scale 6 Independent with activity with or without an assistive device 5 Patient requires set up or clean up by helper. Patient completes activity by themselves 4 Supervision or touching assist (CGA). [place] provide cues , steadying assist 3 The helper provides less than half the effort to complete the activity 2 The helper provides more than half the effort to complete the activity 1 Dependent. The helper does all the effort to complete an activity 7 Patient refused to complete or attempt activity 9 The patient did not perform the activity before the current illness or injury 88 Not attempted due to Medical conditions or safety concerns Bathing (FIM): 3 (OT washes feet in shower. Pt. also requires assist in stance for OT wash bottom.) Shower/Bathe Self (QC): 3 Upper Body (FIM): 5 Upper Body Dressing (QC): 4 Lower Body Dressing (FIM): 2 Lower Body Dressing (QC): 2 On/Off Footwear (QC): 2 Transfers (B, C, W/C) (FIM): 2 Shower Transfer(FIM): 1 (Pt. stood in large shower at bar while therapy removed and added a shower chair for him.) Other Treatment OT and PT completed partial co-treat. Completed co-treat due to pt. requiring assist x 2 in shower. OT facilitated ADL training while PT facilitated mobility training and LE placement and assessment. Noted that left LE "gave out " while pt. standing in shower. Pt. has great difficulty balancing self while up in shower. After shower, PT moved on and OT worked with pt. alone. Pt. and OT came into therapy gym. Completed UE exercises with 1 lb. wrist weights on with intermittent reaching in all planes. Tolerated this well. All needs met. Self propelled wheelchair back to room. Education OT Patient Education: Correct positioning, Exercise program, Modified ADL techniques, Progress toward Goal/Update tx plan, Purpose of tx/functional activities, Reviewed precautions, Rehab process, Transfer techniques Teaching Recipient: Patient Teaching Methods: Demonstration, Discussion Response to Teaching: Verbalize Understanding, Return Demonstration OT Short Term Goals Short Term Goals Time Frame: Feb 14, 2018 Eating(FIM): 6 Grooming(FIM): 6 Bathing(FIM): 5 Upper Body Dressing(FIM): 5 Lower Body Dressing(FIM): 5 Toileting(FIM): 5 Transfers (B,C,W/C) (FIM): 5 Toilet/Commode Transfer(FIM): 5 Shower Transfer(FIM): 4 Additional Short Term Goals: 1-Demonstrate ADL Tasks, 2-Verbalize Understanding , 3-ImproveStrength/Juan José 1=Demonstrate adherence to instructed precautions during ADL tasks. 2=Patient will verbalize/demonstrate understanding of assistive devices/ modifications for ADL. 3=Patient will improve strength/tolerance for activity to enable patient to perform ADL's. OT B And B Gang Worker Goals Usp Goals Time Frame: Feb 21, 2018 Eating (FIM): 6 Eating (QC): 6 Groomin Oral Hygiene (QC): 6 Bathing(FIM): 6 Shower/Bathe Self (QC): 6 Upper Body Dressing(FIM): 6 Upper Body Dressing (QC): 6 Lower Body Dressing(FIM): 6 Lower Body Dressing (QC): 6 On/Off Footwear (QC): 6 Toileting(FIM): 6 Toileting Hygiene (QC): 6 Transfers (B,C,W/C) (FIM): 6 Toilet/Commode Transfer(FIM): 6 Toilet/Commode Transfer (QC): 6 Comprehension(FIM): 5 Expression (FIM): 5 Social Interaction(FIM): 5 Problem Solving(FIM): 5 Memory(FIM): 5 1=Demonstrate adherence to instructed precautions during ADL tasks. 2=Patient will verbalize/demonstrate understanding of assistive devices/ modifications for ADL. 3=Patient will improve strength/tolerance for activity to enable patient to perform ADL's. OT Education/Plan Problem List/Assessment Assessment: Decreased Activ Tolerance, Dependent Transfers, Impaired Bed Mobility, Impaired Funct Balance, Impaired I ADL's, Impaired Self-Care Skills Discharge Recommendations Plan/Recommendations: Continue POC Therapy D/C Recommendations: Home w/ Family Support, Occupational Therapy Home Care Equpiment Recommendations-D/C: Hip Kit Comment Pt. will need a walker for home. Barriers to Progress Left LE weakness Treatment Plan/Plan of Care Treatment,Training & Education: Yes Patient would benefit from OT for education, treatment and training to promote independence in ADL's, mobility, safety and/or upper extremity function for ADL' s. Plan of Care: ADL Retraining, Functional Mobility, Group Exercise/Act as Ind, UE Funct Exercise/Act Treatment Duration: Feb 21, 2018 Frequency: At least 5 of 7 days/Wk (IRF) Estimated Hrs Per Day: 1.5 hours per day Agreement: Yes Rehab Potential: Good Time/GCodes Start Time: 09:45 Stop Time: 11:00 Total Time Billed (hr/min): 75 Billed Treatment Time [id number] Co-treat with PT. Please see above note for designated roles [phone] OT only 1, ADL x 35minutes, EX x 40minutes DAGMAR MURGUIA OT Feb 09, 2018 11:52
--- NOTE | 2018-02-09 11:53 | Physical Therapy Daily Note ---
PT Daily Note-Current Subjective Agrees to PT. Reports he left knee just "gives out" unexpectedly. Reports he did have a KAFO but does not have it any more. Mental Status Patient Orientation: Person, Place, Time, Situation Transfers Functional [place] Measure 0=Not Assessed/NA 4=Minimal Assistance 1=Total Assistance 5=Supervision or Setup 2=Maximal Assistance 6=Modified [place] 3=Moderate Assistance 7=Complete IndependenceIRFPAI Quality Coding Scale 6 Independent with activity with or without an assistive device 5 Patient requires set up or clean up by helper. Patient completes activity by themselves 4 Supervision or touching assist (CGA). [place] provide cues , steadying assist 3 The helper provides less than half the effort to complete the activity 2 The helper provides more than half the effort to complete the activity 1 Dependent. The helper does all the effort to complete an activity 7 Patient refused to complete or attempt activity 9 The patient did not perform the activity before the current illness or injury 88 Not attempted due to Medical conditions or safety concerns Transfers (B, C, W/C) (FIM): 3 Supine to/from Sit: 5 Sit to/from Stand: 3 Chair/Ncs-so-Tdvry Xfer(QC): 3 (With FWW and close assist) Car Transfer (QC): 3 Upon initial standing, pt unsteady and left knee does not appear to support stance. He also seems to have decreased hip girdle stabilization with initial static stance. Pt Transferred sit to stand multiple times during treatment to provide ahsan care (incont of bowel initially) and to change clothing. Weight Bearing Weight Bearing/Tolerated Weight Bearing/Tolerated Gait Training Does the Patient Walk?: Yes Gait (FIM): 2 Distance (FIM): 1=up to 49 ft Distance: 8 ft x 2 Gait Assistive Device: Parallel Bars Very close CGA and occas rigid assist to assist; short step length with limited foot clearance and limited heel strike. Pt tends to lock left knee when WB to stabilize. Unsteady gait and wc kept very close. Wheelchair Training Does the Pt Use a Wheelchair?: Yes Wheelchair (FIM): 5 Wheelchair Distance: 3=150 ft Type of Wheelchair: Manual Treatments Additional co treatment with OT to assist with showering and with functional transfers and transfer training while performing self care. OT addresses self care and washing/ADL"s while PT addressed seated functional balance, Sit to from stand transfers with skilled cues for technique and safety as well as providing physical assist. Skill of 2 clinicians indicated due to the complexity of his impairments and need for multiple cues, hand placement and technique training. Assessment Left knee instability noted and hip girdle weakness as well. Difficulty wiht sit to stand and upright tranfers/gait. PT Short Term Goals Short Term Goals Time Frame: Feb 14, 2018 Transfers (B,C,W/C) (FIM): 5 Gait (FIM): 4 Distance (FIM): 3=150 ft Gait Distance Comment: 150ft with FWW Gait Level of Assist: 4 Gait Assistive Device: FWW Wheelchair Distance: 150 PT Engineering Psychologist Goals Engineering Psychologist Goals PT Group Home Goals Time Frame: Feb 28, 2018 Transfers (B,C,W/C) (FIM): 6 Sit to Lying (QC): 6 Lying-Sitting on Side/Bed(QC): 6 Sit to Stand (QC): 6 Rollin Roll Left to Right (QC): 6 Chair/Pbp-pd-Cloxz Xfer(QC): 6 Car Transfer (QC): 4 Does the Patient Walk: Yes Gait (FIM): 5 Gait distance (FIM): 8=142-04 ft Distance: 50 Walk 10 feet (QC): 6 Walk 10ft-Uneven Surface(QC): 6 Walk 50ft with 2 Turns (QC): 5 Walk 150 ft (QC): 5 Gait Level of Assist: 6 Gait Assistive Device: FWW Stairs (FIM): 3 # of Steps: 5 1 Step (curb) (QC): 5 4 Steps (QC): 4 12 Steps (QC): 88 Picking up an Object (QC): 2 PT Plan Problem List Problem List: Activity Tolerance, Functional Strength, Safety, Balance, Gait, Transfer, Bed Mobility Treatment/Plan Treatment Plan: Continue Plan of Care Treatment Plan: Bed Mobility, Concurrent Therapy, Functional Activity Juan José, Functional Strength, Group Therapy, Gait, Safety, Therapeutic Exercise, Transfers Treatment Duration: Feb 28, 2018 Frequency: At least 5 of 7 days/Wk (IRF) Estimated Hrs Per Day: 1.5 hours per day Patient and/or Family Agrees t: Yes Safety Risks/Education Patient Education: Transfer Techniques, Safety Issues Teaching Recipient: Patient Teaching Methods: Demonstration, Discussion Response to Teaching: Reinforcement Needed Time/GCodes Time In: 915 Time Out: 1025 Total Billed Treatment Time: 70 Total Billed Treatment visit FA 5 (70) Co treat with OT [phone] TRENT VEGAS PT Feb 09, 2018 11:53
[2018-02-09] MEDS ORDERED: IBUP-1773 PO (14:39)
[2018-02-09] MEDS ORDERED: MELO7.5T46 PO (14:39)
[2018-02-09] MEDS ORDERED: METF500T4 PO (14:39)
[2018-02-09] MEDS ORDERED: LORA10TA7 PO (14:39)
[2018-02-09] MEDS ORDERED: LISI10TA2 PO (14:39)
[2018-02-09] MEDS ORDERED: FINA5TAB6 PO (14:39)
[2018-02-09] MEDS ORDERED: GABA800T2 PO (14:39)
[2018-02-09] MEDS ORDERED: ATEN100T PO (14:39)
[2018-02-09] MEDS ORDERED: DAPA10TA PO (14:39)
[2018-02-09] MEDS ORDERED: ALLO100T PO (14:39)
[2018-02-09] MEDS ORDERED: SERT100T8 PO (14:39)
[2018-02-09] MEDS ORDERED: PHEN100C11 PO (14:39)
[2018-02-09] MEDS ORDERED: BACL10TA PO (14:39)
[2018-02-09] MEDS ORDERED: MIRT30TA6 PO (14:39)
[2018-02-09] MEDS ORDERED: TORS20TA3 PO (14:39)
[2018-02-09] MEDS ORDERED: LIDO700A45 TD (14:39)
[2018-02-09] MEDS ORDERED: OMEP20CA12 PO (14:39)
[2018-02-09] MEDS ORDERED: SITA100T12 PO (14:39)
[2018-02-09] MEDS ORDERED: GLIM2TAB PO (14:39)
[2018-02-09] MEDS ORDERED: POTA20TA15 PO (14:39)
--- NOTE | 2018-02-09 15:02 | Physical Therapy Daily Note ---
PT Daily Note-Current Subjective Agreeable to PT. Transfers Functional [place] Measure 0=Not Assessed/NA 4=Minimal Assistance 1=Total Assistance 5=Supervision or Setup 2=Maximal Assistance 6=Modified [place] 3=Moderate Assistance 7=Complete IndependenceIRFPAI Quality Coding Scale 6 Independent with activity with or without an assistive device 5 Patient requires set up or clean up by helper. Patient completes activity by themselves 4 Supervision or touching assist (CGA). [place] provide cues , steadying assist 3 The helper provides less than half the effort to complete the activity 2 The helper provides more than half the effort to complete the activity 1 Dependent. The helper does all the effort to complete an activity 7 Patient refused to complete or attempt activity 9 The patient did not perform the activity before the current illness or injury 88 Not attempted due to Medical conditions or safety concerns Sit to Stand (QC): 4 Chair/Hew-fa-Synlm Xfer(QC): 3 (using FWW) Sit to machinist 2nd shift // bars with min assist x 3 reps. Attempted to work on weight shifting or marching but unable to control left knee and unsafe to attempt. Weight Bearing Weight Bearing/Tolerated Weight Bearing/Tolerated Wheelchair Training Does the Pt Use a Wheelchair?: Yes Wheelchair (FIM): 5 Wheelchair Distance: 3=150 ft (x 2 reps) Type of Wheelchair: Manual Exercises Seated Therapy Exercises: Ankle pumps, Long arc quads, Hip flexion Seated Reps: 15 (NM control and functional strength) Assessment Poor quad control this afternoon left likely due to fatigue. PT Short Term Goals Short Term Goals Time Frame: Feb 14, 2018 Transfers (B,C,W/C) (FIM): 5 Gait (FIM): 4 Distance (FIM): 3=150 ft Gait Distance Comment: 150ft with FWW Gait Level of Assist: 4 Gait Assistive Device: FWW Wheelchair Distance: 150 PT Intermediate Goals Epic Prelude Analyst Goals PT Epic Prelude Analyst Goals Time Frame: Feb 28, 2018 Transfers (B,C,W/C) (FIM): 6 Sit to Lying (QC): 6 Lying-Sitting on Side/Bed(QC): 6 Sit to Stand (QC): 6 Rollin Roll Left to Right (QC): 6 Chair/Uom-wp-Xhere Xfer(QC): 6 Car Transfer (QC): 4 Does the Patient Walk: Yes Gait (FIM): 5 Gait distance (FIM): 0=630-10 ft Distance: 50 Walk 10 feet (QC): 6 Walk 10ft-Uneven Surface(QC): 6 Walk 50ft with 2 Turns (QC): 5 Walk 150 ft (QC): 5 Gait Level of Assist: 6 Gait Assistive Device: FWW Stairs (FIM): 3 # of Steps: 5 1 Step (curb) (QC): 5 4 Steps (QC): 4 12 Steps (QC): 88 Picking up an Object (QC): 2 PT Plan Problem List Problem List: Activity Tolerance, Functional Strength, Safety Treatment/Plan Treatment Plan: Continue Plan of Care Treatment Plan: Bed Mobility, Concurrent Therapy, Functional Activity Juan José, Functional Strength, Group Therapy, Gait, Safety, Therapeutic Exercise, Transfers Treatment Duration: Feb 28, 2018 Frequency: At least 5 of 7 days/Wk (IRF) Estimated Hrs Per Day: 1.5 hours per day Patient and/or Family Agrees t: Yes Time/GCodes Time In: 1325 Time Out: 1350 Total Billed Treatment Time: 25 Total Billed Treatment visit FA 15 EX 10 TRENT VEGAS PT Feb 09, 2018 15:02
[2018-02-09] MEDS ORDERED: HYDR-3812 PO (15:11)
--- NOTE | 2018-02-09 15:40 | PM & R (SOAP) Progress Note ---
Subjective Time Seen by Provider: 14:30 Subjective/Events-last exam Patient was seen in his room this Afternoon Patient min assist for transfers Review of Systems Neurological: Weakness Objective Exam Last Set of Vital Signs Vital Signs Date Time Temp Pulse Resp B/P (MAP) Pulse Ox O2 Delivery O2 Flow Rate FiO2 02/09/18 09:00 Room Air 02/09/18 08:39 73 112/73 (86) 02/09/18 05:51 97.9 18 96 02/08/18 06:00 2.00 Capillary Refill : I&O Intake and Output 02/09/18 00:00 Intake Total 1550 ml Output Total 2150 ml Balance -600 ml Intake Oral 1550 ml Output Urine Total 2150 ml # Voids 1 General: Alert, Oriented X3, Cooperative, No Acute Distress HEENT: Other (mild periorbital swelling) Neck: Supple, No JVD Lungs: Clear to Auscultation Heart: Regular Rate Abdomen: Normal Bowel Sounds Extremities: No Edema Neuro: Other (left HP mild cognitive deficict) Other physical findings well healed left craniotomy incision site Results Lab Laboratory Tests 02/06/18 16:26: Glucometer 177H 02/06/18 21:37: Glucometer 181H 02/07/18 06:30: Glucometer 131H 02/07/18 11:21: Glucometer 203H 02/07/18 15:30: Glucometer 139H 02/07/18 20:18: Glucometer 142H 02/08/18 05:47: Glucometer 132H 02/08/18 11:00: Glucometer 195H 02/08/18 15:33: Glucometer 221H 02/08/18 21:11: Glucometer 119H 02/09/18 05:01: Glucometer 187H 02/09/18 11:12: Glucometer 176H Assessment/Plan Assessment Left HP Mild cognitive deficit S/p Left crani and temporal resection for seizures DM HTN CAD s/p ME Plan Continue PT/OT/ST Team Conference 02-11-18 VALERIE BROWN MD Feb 09, 2018 15:40
[2018-02-09] MEDS: HYDROcodone/APAP 5 MG/325 MG (LORTAB) TAB PO PRN (17:27)
[2018-02-09 17:41] VITALS: BP 103/64
--- NOTE | 2018-02-09 18:16 | Consultation ---
History of Present Illness History of Present Illness Patient Consulted On([place]/time) 02/09/18 18:11 Time Seen by Provider: 18:10 History of Present Illness Patient has history of seizure. Patient had a craniotomy for seizure and left temporal lobectomy. Patient taken Botox. Patient having some slurred speech and facial weakness. Patient has trouble on the left side of his extremities. Left side weak. Patient has history of bigeminy Allergies and Home Medications Allergies Coded Allergies: No Known Allergies (Verified Allergy, Unknown, 07/08/06) Home Medications Allopurinol 100 Mg Tablet, 100 MG PO DAILY, (Reported) Atenolol 100 Mg Tablet, 100 MG PO DAILY, (Reported) Baclofen 10 Mg Tablet, 10 MG PO TID, (Reported) Dapagliflozin Propanediol 10 Mg Tablet, 10 MG PO DAILY, (Reported) Finasteride 5 Mg Tablet, 5 MG PO DAILY, (Reported) Gabapentin 800 Mg Tablet, 800 MG PO Q8H, (Reported) Glimepiride 2 Mg Tablet, 2 MG PO BID, (Reported) Hydrocodone/Acetaminophen 1 Each Tablet, 1 TAB PO Q8H PRN for PAIN-MODERATE, ( Reported) Ibuprofen 600 Mg Tablet, 600 MG PO BID, (Reported) Lidocaine 1 Each Adh..patch, 1 PATCH TD DAILY, (Reported) APPLY PATCH FOR 12 HOURS, THEN REMOVE FOR 12 HOURS BEFORE REPEATING Lisinopril 10 Mg Tablet, 10 MG PO DAILY, (Reported) Loratadine 10 Mg Tablet, 10 MG PO DAILY, (Reported) Meloxicam 7.5 Mg Tablet, 7.5 MG PO DAILY, (Reported) Metformin HCl 500 Mg Tablet, 500 MG PO BID WITH MEALS, (Reported) Mirtazapine 30 Mg Tablet, 45 MG PO HS, (Reported) TAKES 1 & 1/2 OF A (30 MG) TABLET Omeprazole 20 Mg Capsule.dr, 20 MG PO DAILY, (Reported) Phenytoin Sodium Extended 100 Mg Capsule, 300 MG PO 1200, (Reported) TAKES 3 (100 MG) CAPSULES Potassium Chloride 20 Meq Tab.er.prt, 20 MEQ PO 1200, (Reported) Sertraline HCl 100 Mg Tablet, 300 MG PO DAILY, (Reported) TAKES 3 (100 MG) TABLETS Sitagliptin Phosphate 100 Mg Tablet, 100 MG PO DAILY, (Reported) Torsemide 20 Mg Tablet, 20 MG PO BID, (Reported) Patient Home Medication List Home Medication List Reviewed: Yes Past Usmzqhg-Eedfwh-Ohnubz Hx Patient Social History Alcohol Use: Denies Use Recreational Drug Use: No Smoking Status: Never a Smoker Recent Foreign Travel: No Contact w/Someone Who Travel: No Recent Infectious Disease Expo: No Recent Hopitalizations: Yes Seasonal Allergies Seasonal Allergies: No Surgeries History of Surgeries: Yes Respiratory History of Respiratory Disorde: No Respiratory Disorders: Sleep Apnea Currently Using CPAP: Yes Cardiovascular History of Cardiac Disorders: Yes Neurological History of Neurological Disord: Yes (epilepsy) Reproductive System Hx Reproductive Disorders: No Genitourinary History of Genitourinary Disor: Yes Genitourinary Disorders: Prostate Problems Gastrointestinal History of Gastrointestinal Di: No Musculoskeletal History of Musculoskeletal Dis: Yes Musculoskeletal Disorders: Arthritis Endocrine History of Endocrine Disorders: No HEENT History of HEENT Disorders: Yes (chronic mastoiditis of left side, chronic otits media) HEENT Disorders: Chronic Ear Infection Loss of Vision: Denies Hearing Impairment: Denies Cancer History of Cancer: Yes Cancer: Skin Psychosocial History of Psychiatric Problem: Yes Behavioral Health Disorders: Suicide Attempts, Depression Integumentary History of Skin or Integumenta: No Blood Transfusions History of Blood Disorders: No Family Medical History Family Medial History: Alzheimer's disease 19 MOTHER FH: depression 19 MOTHER Review of Systems-General Constitutional: no symptoms reported, weakness EENTM: other (Left eye ptosis gets headaches) Respiratory: no symptoms reported Cardiovascular: other (At [facility]) Gastrointestinal: no symptoms reported Genitourinary: no symptoms reported Physical Exam-General Problems Physical Exam Vital Signs Vital Signs - First Documented 02/06/18 02/08/18 14:34 06:00 Temp 98.7 Pulse 56 Resp 22 B/P (MAP) 114/53 (73) Pulse Ox 96 O2 Delivery Room Air O2 Flow Rate 2.00 Capillary Refill : General Appearance: WD/WN, no apparent distress, obese HEENT: normal ENT inspection Neck: normal inspection Respiratory: chest non-tender, normal breath sounds, no respiratory distress, no accessory muscle use Cardiovascular: regular rate, rhythm, no murmur Gastrointestinal: non tender Assessment/Plan Assessment/Plan Admission Diagnosis/Plan Weakness left side of body. Craniotomy. History of seizures. Hypertension history Clinical Quality Measures DVT/VTE Risk/Contraindication: Risk Factor Score Per Nursin RFS Level Per Nursing on Admit: 4+=Very High GELLENDER,DARCY A DO Feb 09, 2018 18:16
[2018-02-09] MEDS: ATORVASTATIN 20 MG (LIPITOR) TABLET PO SCH (21:16)
[2018-02-09] MEDS: ERYTHROMYCIN OPHTH OINT 1 GM (SINGLE USE) TUBE OP SCH (21:16)
[2018-02-09] MEDS: MIRTAZAPINE 15 MG (REMERON) TAB PO SCH (21:16)
[2018-02-09] MEDS: LIDOCAINE PATCH REMOVAL TP SCH (21:17)
[2018-02-10 06:14] VITALS: BP 110/65
[2018-02-10] MEDS: KCL 20 MEQ TAB (K-DUR) PO SCH (06:35)
[2018-02-10] MEDS: GLIMEPIRIDE 2 MG (AMARYL) TAB PO SCH ×2 (06:35→16:26)
[2018-02-10] MEDS: GABAPENTIN 400 MG (NEURONTIN) CAP PO SCH ×3 (06:35→21:36)
[2018-02-10] MEDS: TORSEMIDE 20 MG (DEMADEX) TAB PO SCH ×2 (06:35→16:26)
[2018-02-10] MEDS: PANTOPRAZOLE 20 MG TABLET (PROTONIX) PO SCH (06:35)
[2018-02-10] MEDS: LINAGLIPTIN (TRADJENTA) 5 MG TABLET PO SCH (06:35)
[2018-02-10] MEDS: TRIM/SULFAMETH 160/800 (SEPTRA DS) TAB PO SCH ×2 (06:35→16:26)
[2018-02-10] MEDS: metFORMIN 500 MG (GLUCOPHAGE) TAB PO SCH (06:35)
[2018-02-10] MEDS: predniSONE 10 MG TAB PO SCH (06:35)
[2018-02-10] MEDS: inSUlin (REGULAR) HUMAN 1 UNIT/0.01 ML (CHARGE PER UNIT) SC SCH ×4 (06:36→21:50)
[2018-02-10 06:49] LABS: HEMOGLOBIN 12.5 G/DL (13.3-17.7); MEAN PLATELET VOLUME 10.4 FL (7.4-10.4); RED BLOOD COUNT 4.08 10^6/uL (4.35-5.85); RED CELL DISTRIBUTION WIDTH 15.4 % (10.0-14.5); WHITE BLOOD COUNT 10.6 10^3/uL (4.3-11.0)
[2018-02-10 07:12] LABS: ALBUMIN 3.7 GM/DL (3.2-4.5); BILIRUBIN,TOTAL 0.3 MG/DL (0.1-1.0); CALCIUM 9.3 MG/DL (8.5-10.1); CREATININE SERUM 1.83 MG/DL (0.60-1.30); POTASSIUM 3.9 MMOL/L (3.6-5.0); TOTAL PROTEIN 7.1 GM/DL (6.4-8.2)
[2018-02-10 08:24] VITALS: BP 107/62
[2018-02-10] MEDS: ATENOLOL 50 MG (TENORMIN) TAB PO SCH (08:25)
[2018-02-10] MEDS: LORATADINE (CLARITIN) 10 MG TAB PO SCH (08:26)
[2018-02-10] MEDS: ARTIFICAL TEARS 0.4 ML UNIT DOSE (REFRESH PLUS) OU SCH ×4 (08:26→21:35)
[2018-02-10] MEDS: amLODIPine 2.5MG (NORVASC) TAB PO SCH (08:26)
[2018-02-10] MEDS: lisINopril 20 MG (PRINIVIL) TABLET PO SCH (08:26)
[2018-02-10] MEDS: SERTRALINE 100 MG (ZOLOFT) TAB PO SCH (08:26)
[2018-02-10] MEDS: ALLOPURINOL 100 MG (ZYLOPRIM) TAB PO SCH (08:26)
[2018-02-10] MEDS: ASPIRIN E.C. 81 MG (ECOTRIN) TAB PO SCH (08:26)
[2018-02-10] MEDS: BACLOFEN 10 MG (LIORESAL) TAB PO SCH ×3 (08:26→21:36)
[2018-02-10] MEDS: PHENYTOIN 100 MG (DILANTIN) CAP PO SCH (08:26)
[2018-02-10] MEDS: FINASTERIDE (PROSCAR) 5 MG TAB PO SCH (08:26)
[2018-02-10] MEDS: SENNA W/DOCUSATE (SENOKOT S) TABLET PO SCH ×2 (08:28→21:35)
[2018-02-10] MEDS: DOCUSATE SODIUM 100 MG (COLACE) CAP PO SCH ×2 (08:28→21:35)
[2018-02-10] MEDS: NEOMY/POLYM/HC (CORTISPORIN) 10 ML BTL OT SCH ×4 (08:29→21:34)
[2018-02-10] MEDS: LIDOCAINE (LIDODERM) 5% PATCH TOP SCH (09:18)
--- NOTE | 2018-02-10 09:55 | PM & R (SOAP) Progress Note ---
Subjective Time Seen by Provider: 09:45 Subjective/Events-last exam Patient was seen in Gym this AM Patient min assist for transfers Discussed case with Pharmacy CReatinine elevated Metformin held Current labs and accucheks noted Review of Systems Neurological: Weakness Objective Exam Last Set of Vital Signs Vital Signs Date Time Temp Pulse Resp B/P (MAP) Pulse Ox O2 Delivery O2 Flow Rate FiO2 02/10/18 09:16 Room Air 02/10/18 08:24 61 18 107/62 (77) 93 02/10/18 06:14 97.8 02/08/18 06:00 2.00 Capillary Refill : I&O Intake and Output 02/10/18 00:00 Intake Total 2220 ml Output Total 3125 ml Balance -905 ml Intake Oral 2220 ml Output Urine Total 3125 ml # Bowel Movements 1 General: Alert, Oriented X3, Cooperative, No Acute Distress HEENT: Other (mild periorbital swelling) Neck: Supple, No JVD Lungs: Clear to Auscultation Heart: Regular Rate Abdomen: Normal Bowel Sounds Extremities: No Edema Neuro: Other (left HP mild cognitive deficict) Results Lab Laboratory Tests 02/07/18 11:21: Glucometer 203H 02/07/18 15:30: Glucometer 139H 02/07/18 20:18: Glucometer 142H 02/08/18 05:47: Glucometer 132H 02/08/18 11:00: Glucometer 195H 02/08/18 15:33: Glucometer 221H 02/08/18 21:11: Glucometer 119H 02/09/18 05:01: Glucometer 187H 02/09/18 11:12: Glucometer 176H 02/09/18 16:01: Glucometer 192H 02/09/18 21:20: Glucometer 114H 02/10/18 05:15: Glucometer 170H 02/10/18 06:36: White Blood Count 10.6, Red Blood Count 4.08L, Hemoglobin 12.5L, Hematocrit 37L , Mean Corpuscular Volume 90, Mean Corpuscular Hemoglobin 31, Mean Corpuscular Hemoglobin Concent 34, Red Cell Distribution Width 15.4H, Platelet Count 166, Mean Platelet Volume 10.4, Sodium Level 140, Potassium Level 3.9, Chloride Level 108H, Carbon Dioxide Level 23, Anion Gap 9, Blood Urea Nitrogen 44H, Creatinine 1.83H, Estimat Glomerular Filtration Rate 37, BUN/Creatinine Ratio 24 , Glucose Level 161H, Calcium Level 9.3, Total Bilirubin 0.3, Aspartate Amino Transf (AST/SGOT) 26, Alanine Aminotransferase (ALT/SGPT) 34, Alkaline Phosphatase 131, Total Protein 7.1, Albumin 3.7 Assessment/Plan Assessment Left HP Mild cognitive deficit S/p Left crani and temporal resection for seizures DM HTN CAD s/p [place] Plan Continue PT/OT/ST Team Conference tomorrow Continue SS Insulin regimen to cover for elevated AccuchekVALERIE Flynn MD Feb 10, 2018 09:55
--- NOTE | 2018-02-10 09:59 | Physical Therapy Daily Note ---
PT Daily Note-Current Subjective Patient in bed pre tx, agrees to PT, has pain of 3-4/10 in his left leg, nurse aware and he states he has taken pain meds already. Appearance Patient in wheelchair at bedside post tx, has nurse call, phone, tray, all needs met. Mental Status Patient Orientation: Person, Place, Situation Transfers Functional [place] Measure 0=Not Assessed/NA 4=Minimal Assistance 1=Total Assistance 5=Supervision or Setup 2=Maximal Assistance 6=Modified [place] 3=Moderate Assistance 7=Complete IndependenceIRFPAI Quality Coding Scale 6 Independent with activity with or without an assistive device 5 Patient requires set up or clean up by helper. Patient completes activity by themselves 4 Supervision or touching assist (CGA). [place] provide cues , steadying assist 3 The helper provides less than half the effort to complete the activity 2 The helper provides more than half the effort to complete the activity 1 Dependent. The helper does all the effort to complete an activity 7 Patient refused to complete or attempt activity 9 The patient did not perform the activity before the current illness or injury 88 Not attempted due to Medical conditions or safety concerns Transfers (B, C, W/C) (FIM): 3 Scootin Rollin Supine to/from Sit: 3 Sit to/from Stand: 3 Bed to/from Chair: 3 Patient needs cues for safety and positioning. He is min assist for transfers to the right and mod to the left. Weight Bearing Weight Bearing/Tolerated Weight Bearing/Tolerated Wheelchair Training Does the Pt Use a Wheelchair?: Yes Wheelchair (FIM): 5 Distance: 150'x2 Type of Wheelchair: Manual Exercises Supine Ex: Bridging, Quad Set, Heel Slides, Straight leg raise, Hip abd/add Supine Reps: 20 manually resisted left leg extension x10, manually resisted leg press seated 3 sets of 10, LAQ alternating for 5 min, sit to stand 3 sets of 5 Treatments bed mobility and transfers, wheelchair mobility, functional strengthening Assessment Current Status: Poor Progress No change in mobility. Patient is very uncoordinated with sit to stand and moving his left leg in general. PT Short Term Goals Short Term Goals Time Frame: Feb 14, 2018 Transfers (B,C,W/C) (FIM): 5 Gait (FIM): 4 Distance (FIM): 3=150 ft Gait Distance Comment: 150ft with FWW Gait Level of Assist: 4 Gait Assistive Device: FWW Wheelchair Distance: 150 PT Boat Diesel Motor Mechanic Goals Boat Diesel Motor Mechanic Goals PT Boat Diesel Motor Mechanic Goals Time Frame: Feb 28, 2018 Transfers (B,C,W/C) (FIM): 6 Sit to Lying (QC): 6 Lying-Sitting on Side/Bed(QC): 6 Sit to Stand (QC): 6 Rollin Roll Left to Right (QC): 6 Chair/Wzw-sz-Pmbwi Xfer(QC): 6 Car Transfer (QC): 4 Does the Patient Walk: Yes Gait (FIM): 5 Gait distance (FIM): 7=178-80 ft Distance: 50 Walk 10 feet (QC): 6 Walk 10ft-Uneven Surface(QC): 6 Walk 50ft with 2 Turns (QC): 5 Walk 150 ft (QC): 5 Gait Level of Assist: 6 Gait Assistive Device: FWW Stairs (FIM): 3 # of Steps: 5 1 Step (curb) (QC): 5 4 Steps (QC): 4 12 Steps (QC): 88 Picking up an Object (QC): 2 PT Plan Problem List Problem List: Activity Tolerance, Functional Strength, Safety, Balance, Gait, Transfer, Bed Mobility, ROM Treatment/Plan Treatment Plan: Continue Plan of Care Treatment Plan: Bed Mobility, Concurrent Therapy, Functional Activity Juan José, Functional Strength, Group Therapy, Gait, Safety, Therapeutic Exercise, Transfers Treatment Duration: Feb 28, 2018 Frequency: At least 5 of 7 days/Wk (IRF) Estimated Hrs Per Day: 1.5 hours per day Patient and/or Family Agrees t: Yes Safety Risks/Education Patient Education: Transfer Techniques, Correct Positioning, W/C Management, Safety Issues Teaching Recipient: Patient Teaching Methods: Demonstration, Discussion Response to Teaching: Reinforcement Needed Time/GCodes Time In: 900 Time Out: 1000 Total Billed Treatment Time: 60 Total Billed Treatment 1 visit [facility] 10' FA 20' EX 30' ALESHIA PETERSEN PT Feb 10, 2018 09:59
--- NOTE | 2018-02-10 10:53 | Individualized Plan of Care ---
Individualized Plan of Care Rehab Nursing IPOC Order Admission Date Feb 06, 2018 at 14:20 Current Orders Orders Admission Order(Inpt,Obs,Sdc) (02/06/18 13:17) Vital Signs: Routine (Ord) 08,16,00 (02/06/18 13:17) Sequential Compression Device 08,20 (02/06/18 13:17) Project Scientist-Inpt Rehab (02/06/18 13:17) Rehab Nursing Orders-Ipoc (02/06/18 13:17) Physical Therapy Rehab Orders (02/06/18 13:17) Occupational Therapy Rehab Ord (02/06/18 13:17) Speech Therapy Rehab Orders (02/06/18 13:17) Cho 60g/M 1snack (16-2000 Rupesh) (02/06/18 Dinner) Turn And Reposition Q2HR (02/06/18 13:17) Intake & Output 06,14,22 (02/06/18 13:17) Accucheck Daily DAILY (02/06/18 13:17) Weekly Weight (Lbs) WEEK (02/06/18 13:17) Consult Physician (02/06/18 13:22) Ambulate TID (02/06/18 14:50) Sequential Compression Device 08,20 (02/06/18 14:50) Dvt/Vte Risk - Notifiy Physici 08 (02/06/18 14:50) Request Ot Evaluate & Treat (02/06/18 14:50) Admission Arrival Bed Request (02/06/18 14:50) Patient Visit (02/06/18 ) Speech Sound Lang Comp (02/06/18 ) Acetaminophen Tablet (Tylenol Tablet) (02/06/18 15:00) Allopurinol Tablet (Zyloprim Tablet) (02/07/18 09:00) Amlodipine Tablet (Norvasc Tablet) (02/07/18 09:00) Aspirin Enteric Coated Tablet (Ecotrin T (02/07/18 09:00) Atenolol Tablet (Tenormin Tablet) (02/07/18 09:00) Atorvastatin Tablet (Lipitor) (02/06/18 21:00) Baclofen Tablet (Lioresal Tablet) (02/06/18 21:00) Carboxymethylcell Ophth Soln (Refresh Pl (02/06/18 17:00) Docusate Sodium Capsule (Colace Capsule) (02/06/18 21:00) Erythromycin Ophth Oint (Erythromycin Op (02/06/18 21:00) Finasteride Tablet (Proscar Tablet) (02/07/18 09:00) Gabapentin Capsule/Tablet (Neurontin Cap (02/06/18 22:00) Glimepiride Tablet (Amaryl Tablet) (02/06/18 17:00) Heparin Injection (Heparin Injection) (02/06/18 17:00) Hydrocodone/Apap 5/325 Tablet (Lortab 5 (02/06/18 15:00) Ibuprofen Tablet (Motrin Tablet) (02/06/18 15:00) Lidocaine Patch (Lidoderm 5% Patch) (02/07/18 09:00) Lisinopril Tablet (Zestril Tablet) (02/07/18 09:00) Loratadine Tablet (Claritin Tablet) (02/07/18 09:00) Meloxicam Tablet (Mobic Tablet) (02/07/18 09:00) Metformin Tablet (Glucophage Tablet) (02/06/18 17:00) Mirtazapine Tablet (Remeron Tablet) (02/06/18 21:00) Nitroglycerin 0.4 Mg Btl 25's (Nitrostat (02/06/18 15:00) Pantoprazole Tablet (Protonix Tablet) (02/07/18 07:00) Potassium Chloride (Tablet) (K Dur Table (02/07/18 07:00) Senna S Tablet (Senokot S Tablet) (02/06/18 21:00) Sertraline Tablet (Zoloft Tablet) (02/07/18 09:00) Torsemide Tablet (Demadex Tablet) (02/06/18 17:00) Sulfamethoxazole/Trimet Ds Tab (Bactrim (02/06/18 17:00) Pharmacy Communication (Pharmacy Communi (02/06/18 15:15) Code/Resuscitation (02/06/18 15:25) Influenza Trivalent [id number] (Afluria (02/06/18 15:30) Pneumococcal Vaccine (Pnu-Imune 23 Vacci (02/06/18 15:30) Code/Resuscitation (02/06/18 15:38) Behavorial Health Consult (02/06/18 15:47) Atorvastatin Tablet (Lipitor Tablet) (02/06/18 21:00) Carboxymethylcell Ophth Soln (Refresh Pl (02/06/18 16:30) Patch Removal (Patch Removal) (02/06/18 21:00) Influenza Trivalent [id number] (Afluria (02/06/18 17:00) Phenytoin Capsule (Dilantin Capsule) (02/07/18 09:00) Prednisone Tablet (Deltasone Tablet) (02/07/18 07:00) Linagliptin Tablet (Tradjenta Tablet) (02/07/18 07:00) Insulin (Regular) Human (Humulin R (Per (02/06/18 21:00) Neomy/Poly/Hc Otic Suspension (Cortispor (02/06/18 21:00) Gabapentin Capsule/Tablet (Neurontin Cap (02/07/18 14:00) Accucheck Achs ACHS (02/07/18 10:15) Patient Visit (02/07/18 ) Pt Eval High Complexity (02/07/18 ) Gait Training, Ea 15 Min (02/07/18 ) Functional Activities, Ea 15 (02/07/18 ) Patient Visit (02/09/18 ) Treat. Speech/Lang/Voice (02/09/18 ) Gait Training, Ea 15 Min (02/07/18 ) Functional Activities, Ea 15 (02/07/18 ) Patient Visit (02/09/18 ) Functional Activities, Ea 15 (02/09/18 ) Exercise Therap, Ea 15 Min (02/09/18 ) Dilantin (Phenytoin) (02/10/18 05:00) Cbc No Diff (02/10/18 05:00) Comprehensive Metabolic Panel (02/10/18 05:00) Amlodipine Tablet (Norvasc Tablet) (02/10/18 09:00) Hemoglobin A1c (02/10/18 05:48) Rehab Nursing Orders: Diseage Management, Edu in Press Rel Techn, Hydration Management, Nutrition Management, Pain Management Other Nursing Orders: Monitor for urinary retention and constipation PT IPOC Problem List: Activity Tolerance, Functional Strength, Safety, Balance, Gait, Transfer, Bed Mobility, ROM Treatment Plan: Continue Plan of Care Bed Mobility, Concurrent Therapy, Functional Activity Juan José, Functional Strength , Group Therapy, Gait, Safety, Therapeutic Exercise, Transfers Treatment Duration: Feb 28, 2018 Frequency: At least 5 of 7 days/Wk (IRF) Estimated Hrs Per Day: 1.5 hours per day OT IPOC Problems: Decreased Activ Tolerance, Dependent Transfers, Impaired Bed Mobility , Impaired Funct Balance, Impaired I ADL's, Impaired Self-Care Skills OT Treatment, Training and Edu: Yes Plan of Care: ADL Retraining, Functional Mobility, Group Exercise/Act as Ind, UE Funct Exercise/Act Treatment Duration: Feb 21, 2018 Frequency: At least 5 of 7 days/Wk (IRF) Estimated Hrs Per Day: 1.[address] IPOC Speech Therapy Treatment Plan: Continue Plan of Care Treatment Duration: Feb 27, 2018 Frequency: Modified Program (IRF) (Four to five times per week.) Estimated Hrs Per Day: .5 hour per day Project Scientist/Case Mgmt Project Scientist/Case Managemen: Discharge Planning, Patient/Family Counseling Physician IPOC Medical Issues being managed closely and that require the 24 hour availability of a physician:DM HTN Chronic otitis media Medical Issues: Bowel/Bladder Function, DVT Prophylaxis, Falls Precautions, Fluid/Electrolyte/Nutrition Balance, Infection Protection, Pain Management, Other (List) (as per above) Brief Synthesis of Preadmission Screen, Post-Admission Evaluation, and Therapy Evaluations:67 yo male who had been Modified Independent and living in his won apartment prior to being admitted to OSH due to newonset left side weaknees Workup negative but has hx of temp lobectomy for tratment of Seizures at [facility] with vairous complications and comorbididties as outlined in H&P had a decline in functional [place] due to this and referred to IRU for ongoing care and therapies Patients creatinine somewhat elevated and metformin placed on hold Patient has SS Insulin regimen to cover Tbe patient has a supportive daughter who lives nearby \ [facility] CODE 03.9 Etiologic DX Hemiparasis/hemiplegia left side Medical Prognosis: Good Anticipated Length of Stay: 3-24-18 Rehab Goals Modified Independent to supervision for adls and mobility skills Anticipated discharge destinat: Home with family and [facility] VALERIE BROWN MD Feb 10, 2018 10:53
--- NOTE | 2018-02-10 11:02 | Speech Therapy Daily Note ---
Speech Daily Progress Note Subjective Date Seen by Provider: Feb 10, 2018 Time Seen by Provider: 08:30 The patient was seated upright in bed upon entrance. The patient greeted the clinician appropriately and was agreeable to participation in the voice treatment session. To note, the patient continued to state his voicing issues were new following his recent impairments and hospitalization. Following conversation on this date , the patient stated he has received voice therapy in the past (several years ago) at an outside facility, however, "it didn't work." Objective Resonant Voice Exercises: Resonant Voice Exercises were introduced on this date , specifically relaxation methods for the laryngeal musculature. Voiceless cup bubbling was demonstrated and initiated on this date. The patient demonstrated poor breath support and control, therefore, displaying poor accuracy regardless of maximum clinician verbal cueing. Voiced cup bubbling was initiated as well with similar accuracy levels. Assessment Assessment Current Status: Poor Progress Treatment Plan Continue Plan of Care Communication Comprehension: 5 Expression: 4 Social Cognition Social Interaction: 5 Problem Solvin Memory: 4 Speech Short Term Goals Short Term Goals Short Term Goals 1. The patient will demonstrate hyperfunctional voice exercises with 80% accuracy and mild clinician cueing. 2. The patient will demonstrate and recall three functional memory strategies for use at home, independently. Time Frame-STG: One Week Speech Power Bender Operator Goals Long-Term Goals 1. The patient will demonstrated improved expressive communication and cognitive skill for increased function and safety in the least restrictive setting. Time Frame: Three Weeks Comprehension: 5 Expression: 5 Social Interaction: 5 Problem Solvin Memory: 5 Speech-Plan Treatment Plan Speech Therapy Treatment Plan: Continue Plan of Care Continue skilled speech pathology for improved expressive communication. Treatment Duration: Feb 27, 2018 Frequency: Modified Program (IRF) (Four to five times per week.) Estimated Hrs Per Day: .5 hour per day Rehab Potential: Good Safety Risks/Education Teaching Recipient: Patient Teaching Methods: Demonstration, Handout, Discussion Response to Teaching: Verbalize Understanding, Reinforcement Needed Education Topics Provided: Resonant Voice Exercises Time Speech Therapy Time In: 08:30 Speech Therapy Time Out: 09:00 Total Billed Time: 30 Billed Treatment Time Zakia SHAJI STODDARD Feb 10, 2018 11:02
--- NOTE | 2018-02-10 12:03 | Occupational Ther Daily Note ---
OT Current Status-Daily Note Subjective No pain reported. Appearance Pt. up in chair. Declines showering today. Agrees to change clothes. Mental Status/Objective Patient Orientation: Person, Place Functional [place] Measure 0=Not Assessed/NA 4=Minimal Assistance 1=Total Assistance 5=Supervision or Setup 2=Maximal Assistance 6=Modified [place] 3=Moderate Assistance 7=Complete [place] ADL-Treatment Functional [place] Measure 0=Not Assessed/NA 4=Minimal Assistance 1=Total Assistance 5=Supervision or Setup 2=Maximal Assistance 6=Modified [place] 3=Moderate Assistance 7=Complete IndependenceIRFPAI Quality Coding Scale 6 Independent with activity with or without an assistive device 5 Patient requires set up or clean up by helper. Patient completes activity by themselves 4 Supervision or touching assist (CGA). [place] provide cues , steadying assist 3 The helper provides less than half the effort to complete the activity 2 The helper provides more than half the effort to complete the activity 1 Dependent. The helper does all the effort to complete an activity 7 Patient refused to complete or attempt activity 9 The patient did not perform the activity before the current illness or injury 88 Not attempted due to Medical conditions or safety concerns Upper Body (FIM): 5 (Set up to change his shirt.) Upper Body Dressing (QC): 4 Lower Body Dressing (FIM): 3 (Pt. is able to doff socks, and don left sock with SBA by bringing foot up to himself. Pt. unable to get right foot up to himself to don right sock. Pt. is able to don pants around feet but requires assist in stance to pull them up.) Lower Body Dressing (QC): 3 On/Off Footwear (QC): 3 Transfers (B, C, W/C) (FIM): 3 (Pt. requires mod assist to stand out of wheelchair, at parallel bars and at walker. Pt. also requires assist to transfer to chair with mod assist. ) Other Treatment Pt. self propelled wheelchair to therapy gym. Began treatment with armbike. Pt. reports soreness in left arm, and was only able to tolerate 5 minutes on armbike. OT began to work on left UE with PROM and massage. Pt. reports soreness and trigger points throughout with palpation in bicep tendon and trapezius area. Pt. unable to tolerate massage and is only able to tolerate limited PROM to left side. Pt. and OT have conversation regarding why left UE is weak and sore. No subluxation noted in shoulder. Pt. states that he received a "shot" from his neurologist in his neck but unsure of why this was. OT talked with pt. about nerve pain and weakness vs. muscle weakness from neurological condition. Pt. practices standing at bars with mod assist, and weight shifting. Pt. has difficulty with balance and with strength in left knee. Demonstrates decreased awareness as well, as pt. states that he feels strong in right side, when actually, OT is holding him up when he attempts to weight shift. Pt. is issued and educated on AE. Pt. practiced doffing/donning right sock. Transfers to chair in room from wheelchair. All needs met in room. Education OT Patient Education: Correct positioning, Modified ADL techniques, Progress toward Goal/Update tx plan, Purpose of tx/functional activities, Reviewed precautions, Rehab process, Transfer techniques Teaching Recipient: Patient Teaching Methods: Demonstration, Discussion Response to Teaching: Verbalize Understanding, Return Demonstration OT Short Term Goals Short Term Goals Time Frame: Feb 14, 2018 Eating(FIM): 6 Grooming(FIM): 6 Bathing(FIM): 5 Upper Body Dressing(FIM): 5 Lower Body Dressing(FIM): 5 Toileting(FIM): 5 Transfers (B,C,W/C) (FIM): 5 Toilet/Commode Transfer(FIM): 5 Shower Transfer(FIM): 4 Additional Short Term Goals: 1-Demonstrate ADL Tasks, 2-Verbalize Understanding , 3-ImproveStrength/Juan José 1=Demonstrate adherence to instructed precautions during ADL tasks. 2=Patient will verbalize/demonstrate understanding of assistive devices/ modifications for ADL. 3=Patient will improve strength/tolerance for activity to enable patient to perform ADL's. OT Skilled Nursing Goals Neonatal Nurse Goals Time Frame: Feb 21, 2018 Eating (FIM): 6 Eating (QC): 6 Groomin Oral Hygiene (QC): 6 Bathing(FIM): 6 Shower/Bathe Self (QC): 6 Upper Body Dressing(FIM): 6 Upper Body Dressing (QC): 6 Lower Body Dressing(FIM): 6 Lower Body Dressing (QC): 6 On/Off Footwear (QC): 6 Toileting(FIM): 6 Toileting Hygiene (QC): 6 Transfers (B,C,W/C) (FIM): 6 Toilet/Commode Transfer(FIM): 6 Toilet/Commode Transfer (QC): 6 Comprehension(FIM): 5 Expression (FIM): 5 Social Interaction(FIM): 5 Problem Solving(FIM): 5 Memory(FIM): 5 1=Demonstrate adherence to instructed precautions during ADL tasks. 2=Patient will verbalize/demonstrate understanding of assistive devices/ modifications for ADL. 3=Patient will improve strength/tolerance for activity to enable patient to perform ADL's. OT Education/Plan Problem List/Assessment Assessment: Decreased Activ Tolerance, Decreased Safety Aware, Decreased UE Strength, Dependent Transfers, Impaired Bed Mobility, Impaired Coordination, Impaired Funct Balance, Impaired I ADL's, Impaired Self-Care Skills, Restricted Funct UE ROM Discharge Recommendations Plan/Recommendations: Continue POC Therapy D/C Recommendations: Home w/ Family Support, Occupational Therapy Home Care, Scheduled Assistance Equpiment Recommendations-D/C: Hip Kit Treatment Plan/Plan of Care Treatment,Training & Education: Yes Patient would benefit from OT for education, treatment and training to promote independence in ADL's, mobility, safety and/or upper extremity function for ADL' s. Plan of Care: ADL Retraining, Functional Mobility, Group Exercise/Act as Ind, UE Funct Exercise/Act Treatment Duration: Feb 21, 2018 Frequency: At least 5 of 7 days/Wk (IRF) Estimated Hrs Per Day: 1.5 hours per day Agreement: Yes Rehab Potential: Good Time/GCodes Start Time: 10:30 Stop Time: 11:45 Total Time Billed (hr/min): 75 Billed Treatment Time 1, FA x 45minutes, ADL x 30minutes DAGMAR MURGUIA OT Feb 10, 2018 12:03
--- NOTE | 2018-02-10 13:55 | Physical Therapy Daily Note ---
PT Daily Note-Current Subjective Patient in recliner pre tx, agrees to PT, no complaints of pain. Appearance Patient in recliner post tx, has nurse call, phone, tray, all needs met. Mental Status Patient Orientation: Person, Place, Situation Transfers Functional [place] Measure 0=Not Assessed/NA 4=Minimal Assistance 1=Total Assistance 5=Supervision or Setup 2=Maximal Assistance 6=Modified [place] 3=Moderate Assistance 7=Complete IndependenceIRFPAI Quality Coding Scale 6 Independent with activity with or without an assistive device 5 Patient requires set up or clean up by helper. Patient completes activity by themselves 4 Supervision or touching assist (CGA). [place] provide cues , steadying assist 3 The helper provides less than half the effort to complete the activity 2 The helper provides more than half the effort to complete the activity 1 Dependent. The helper does all the effort to complete an activity 7 Patient refused to complete or attempt activity 9 The patient did not perform the activity before the current illness or injury 88 Not attempted due to Medical conditions or safety concerns Transfers (B, C, W/C) (FIM): 4 Sit to/from Stand: 4 Bed to/from Chair: 4 min assist to stand from lower surfaces, stand pivot with CGA to the right Weight Bearing Weight Bearing/Tolerated Weight Bearing/Tolerated Wheelchair Training Does the Pt Use a Wheelchair?: Yes Wheelchair (FIM): 5 Distance: 150'x2 Wheelchair Level of Assist: 5 Type of Wheelchair: Manual Exercises NuStep Minutes: 10 NuStep Workload: 5 Treatments transfers, wheelchair mobility, functional strengthening Assessment Current Status: Fair Progress improved transfers PT Short Term Goals Short Term Goals Time Frame: Feb 14, 2018 Transfers (B,C,W/C) (FIM): 5 Gait (FIM): 4 Distance (FIM): 3=150 ft Gait Distance Comment: 150ft with FWW Gait Level of Assist: 4 Gait Assistive Device: FWW Wheelchair Distance: 150'x2 PT Crimping Press Operator Goals Intermediate Goals PT Intermediate Goals Time Frame: Feb 28, 2018 Transfers (B,C,W/C) (FIM): 6 Sit to Lying (QC): 6 Lying-Sitting on Side/Bed(QC): 6 Sit to Stand (QC): 6 Rollin Roll Left to Right (QC): 6 Chair/Mwr-fp-Tnicz Xfer(QC): 6 Car Transfer (QC): 4 Does the Patient Walk: Yes Gait (FIM): 5 Gait distance (FIM): 8=154-09 ft Distance: 50 Walk 10 feet (QC): 6 Walk 10ft-Uneven Surface(QC): 6 Walk 50ft with 2 Turns (QC): 5 Walk 150 ft (QC): 5 Gait Level of Assist: 6 Gait Assistive Device: FWW Stairs (FIM): 3 # of Steps: 5 1 Step (curb) (QC): 5 4 Steps (QC): 4 12 Steps (QC): 88 Picking up an Object (QC): 2 PT Plan Problem List Problem List: Activity Tolerance, Functional Strength, Safety, Balance, Gait, Transfer, Bed Mobility, ROM Treatment/Plan Treatment Plan: Continue Plan of Care Treatment Plan: Bed Mobility, Concurrent Therapy, Functional Activity Juan José, Functional Strength, Group Therapy, Gait, Safety, Therapeutic Exercise, Transfers Treatment Duration: Feb 28, 2018 Frequency: At least 5 of 7 days/Wk (IRF) Estimated Hrs Per Day: 1.5 hours per day Patient and/or Family Agrees t: Yes Safety Risks/Education Patient Education: Transfer Techniques, Correct Positioning, W/C Management, Safety Issues Teaching Recipient: Patient Teaching Methods: Demonstration, Discussion Response to Teaching: Reinforcement Needed Time/GCodes Time In: 1330 Time Out: 1400 Total Billed Treatment Time: 30 Total Billed Treatment 1 visit EX 10' [facility] 20' ALESHIA PETERSEN PT Feb 10, 2018 13:55
[2018-02-10 17:39] VITALS: BP 99/61
[2018-02-10] MEDS: ERYTHROMYCIN OPHTH OINT 1 GM (SINGLE USE) TUBE OP SCH (21:35)
[2018-02-10] MEDS: LIDOCAINE PATCH REMOVAL TP SCH (21:36)
[2018-02-10] MEDS: ATORVASTATIN 20 MG (LIPITOR) TABLET PO SCH (21:36)
[2018-02-10] MEDS: MIRTAZAPINE 15 MG (REMERON) TAB PO SCH (21:36)
[2018-02-11] MEDS: GLIMEPIRIDE 2 MG (AMARYL) TAB PO SCH ×2 (06:12→16:56)
[2018-02-11] MEDS: PANTOPRAZOLE 20 MG TABLET (PROTONIX) PO SCH (06:12)
[2018-02-11] MEDS: TORSEMIDE 20 MG (DEMADEX) TAB PO SCH ×2 (06:12→16:56)
[2018-02-11] MEDS: predniSONE 10 MG TAB PO SCH (06:12)
[2018-02-11] MEDS: TRIM/SULFAMETH 160/800 (SEPTRA DS) TAB PO SCH ×2 (06:12→16:56)
[2018-02-11] MEDS: KCL 20 MEQ TAB (K-DUR) PO SCH (06:12)
[2018-02-11] MEDS: LINAGLIPTIN (TRADJENTA) 5 MG TABLET PO SCH (06:12)
[2018-02-11] MEDS: GABAPENTIN 400 MG (NEURONTIN) CAP PO SCH ×3 (06:12→21:15)
[2018-02-11] MEDS: inSUlin (REGULAR) HUMAN 1 UNIT/0.01 ML (CHARGE PER UNIT) SC SCH ×4 (06:18→21:09)
[2018-02-11 06:22] VITALS: BP 97/54
[2018-02-11] MEDS: SERTRALINE 100 MG (ZOLOFT) TAB PO SCH (09:21)
[2018-02-11] MEDS: LIDOCAINE (LIDODERM) 5% PATCH TOP SCH (09:21)
[2018-02-11] MEDS: ATENOLOL 50 MG (TENORMIN) TAB PO SCH (09:21)
[2018-02-11] MEDS: LORATADINE (CLARITIN) 10 MG TAB PO SCH (09:22)
[2018-02-11] MEDS: ALLOPURINOL 100 MG (ZYLOPRIM) TAB PO SCH (09:22)
[2018-02-11] MEDS: amLODIPine 2.5MG (NORVASC) TAB PO SCH (09:22)
[2018-02-11] MEDS: lisINopril 20 MG (PRINIVIL) TABLET PO SCH (09:22)
[2018-02-11] MEDS: ASPIRIN E.C. 81 MG (ECOTRIN) TAB PO SCH (09:22)
[2018-02-11] MEDS: FINASTERIDE (PROSCAR) 5 MG TAB PO SCH (09:22)
[2018-02-11] MEDS: BACLOFEN 10 MG (LIORESAL) TAB PO SCH ×3 (09:22→21:15)
[2018-02-11] MEDS: PHENYTOIN 100 MG (DILANTIN) CAP PO SCH (09:22)
[2018-02-11] MEDS: ARTIFICAL TEARS 0.4 ML UNIT DOSE (REFRESH PLUS) OU SCH ×4 (09:23→21:16)
[2018-02-11] MEDS: SENNA W/DOCUSATE (SENOKOT S) TABLET PO SCH ×2 (09:23→21:08)
[2018-02-11] MEDS: DOCUSATE SODIUM 100 MG (COLACE) CAP PO SCH ×2 (09:23→21:08)
[2018-02-11] MEDS: NEOMY/POLYM/HC (CORTISPORIN) 10 ML BTL OT SCH ×4 (09:25→21:44)
--- NOTE | 2018-02-11 10:05 | Physical Therapy Daily Note ---
PT Daily Note-Current Subjective Patient in bed sleeping pre tx, agrees to PT upon waking, very drowsy. No complaints of pain. Appearance Patient in wheelchair at bedside post tx with nurse call, phone, tray, all needs met. Mental Status Patient Orientation: Person, Place, Situation Transfers Functional [place] Measure 0=Not Assessed/NA 4=Minimal Assistance 1=Total Assistance 5=Supervision or Setup 2=Maximal Assistance 6=Modified [place] 3=Moderate Assistance 7=Complete IndependenceIRFPAI Quality Coding Scale 6 Independent with activity with or without an assistive device 5 Patient requires set up or clean up by helper. Patient completes activity by themselves 4 Supervision or touching assist (CGA). [place] provide cues , steadying assist 3 The helper provides less than half the effort to complete the activity 2 The helper provides more than half the effort to complete the activity 1 Dependent. The helper does all the effort to complete an activity 7 Patient refused to complete or attempt activity 9 The patient did not perform the activity before the current illness or injury 88 Not attempted due to Medical conditions or safety concerns Transfers (B, C, W/C) (FIM): 3 Scootin Rollin Supine to/from Sit: 3 Sit to/from Stand: 4 Bed to/from Chair: 4 Patient almost fell out of bed after supine to sit due to poor trunk balance/ coordination. Weight Bearing Weight Bearing/Tolerated Weight Bearing/Tolerated Gait Training Gait (FIM): 2 Distance: 100'x3 Gait Level of Assist: 3 Gait Persons Needed: 2 Gait Assistive Device: FWW Patient has impaired coordination of trunk and hips. He uses a left IROM brace for knee buckling. Wheelchair Training Wheelchair (FIM): 5 Distance: 150'x2 Wheelchair Level of Assist: 5 Type of Wheelchair: Manual Exercises Seated Therapy Exercises: Long arc quads Seated Reps: 20 put left foot on step and back down x10 Treatments bed mobility and transfers, ambulation, functional strengthening Assessment Current Status: Fair Progress High fall risk. Poor balance, retropulsion during standing. PT Short Term Goals Short Term Goals Time Frame: Feb 14, 2018 Transfers (B,C,W/C) (FIM): 5 Gait (FIM): 4 Distance (FIM): 3=150 ft Gait Distance Comment: 150ft with FWW Gait Level of Assist: 4 Gait Assistive Device: FWW Wheelchair Distance: 150'x2 PT Residential Goals Residential Goals PT Residential Goals Time Frame: Feb 28, 2018 Transfers (B,C,W/C) (FIM): 6 Sit to Lying (QC): 6 Lying-Sitting on Side/Bed(QC): 6 Sit to Stand (QC): 6 Rollin Roll Left to Right (QC): 6 Chair/Xxr-pm-Vhxzm Xfer(QC): 6 Car Transfer (QC): 4 Does the Patient Walk: Yes Gait (FIM): 5 Gait distance (FIM): 5=128-92 ft Distance: 50 Walk 10 feet (QC): 6 Walk 10ft-Uneven Surface(QC): 6 Walk 50ft with 2 Turns (QC): 5 Walk 150 ft (QC): 5 Gait Level of Assist: 6 Gait Assistive Device: FWW Stairs (FIM): 3 # of Steps: 5 1 Step (curb) (QC): 5 4 Steps (QC): 4 12 Steps (QC): 88 Picking up an Object (QC): 2 PT Plan Problem List Problem List: Activity Tolerance, Functional Strength, Safety, Balance, Gait, Transfer, Bed Mobility, ROM Treatment/Plan Treatment Plan: Continue Plan of Care Treatment Plan: Bed Mobility, Concurrent Therapy, Functional Activity Juan José, Functional Strength, Group Therapy, Gait, Safety, Therapeutic Exercise, Transfers Treatment Duration: Feb 28, 2018 Frequency: At least 5 of 7 days/Wk (IRF) Estimated Hrs Per Day: 1.5 hours per day Patient and/or Family Agrees t: Yes Safety Risks/Education Patient Education: Gait Training, Transfer Techniques, Correct Positioning, Safety Issues Teaching Recipient: Patient Teaching Methods: Demonstration, Discussion Response to Teaching: Reinforcement Needed Time/GCodes Time In: 900 Time Out: 1000 Total Billed Treatment Time: 60 Total Billed Treatment 1 visit GT 30' FA 15' EX 15' ALESHIA PETERSEN PT Feb 11, 2018 10:05
--- NOTE | 2018-02-11 14:00 | Physical Therapy Daily Note ---
PT Daily Note-Current Subjective Patient in recliner pre tx, agrees to PT, has no complaints of pain. Appearance Patient in recliner post tx with nurse call, phone, tray, all needs met. Mental Status Patient Orientation: Person, Place, Situation Transfers Functional [place] Measure 0=Not Assessed/NA 4=Minimal Assistance 1=Total Assistance 5=Supervision or Setup 2=Maximal Assistance 6=Modified [place] 3=Moderate Assistance 7=Complete IndependenceIRFPAI Quality Coding Scale 6 Independent with activity with or without an assistive device 5 Patient requires set up or clean up by helper. Patient completes activity by themselves 4 Supervision or touching assist (CGA). [place] provide cues , steadying assist 3 The helper provides less than half the effort to complete the activity 2 The helper provides more than half the effort to complete the activity 1 Dependent. The helper does all the effort to complete an activity 7 Patient refused to complete or attempt activity 9 The patient did not perform the activity before the current illness or injury 88 Not attempted due to Medical conditions or safety concerns Transfers (B, C, W/C) (FIM): 4 Sit to/from Stand: 4 Bed to/from Chair: 4 stand pivot transfer to the right with CGA/[place]. Needs min assist to stand and keep immediate balance. Weight Bearing Weight Bearing/Tolerated Weight Bearing/Tolerated Wheelchair Training Does the Pt Use a Wheelchair?: Yes Wheelchair (FIM): 5 Distance: 150'x2 Wheelchair Level of Assist: 5 Type of Wheelchair: Manual Exercises NuStep Minutes: 10 NuStep Workload: 5 Treatments transfers, functional strengthening, wheelchair mobility Assessment Current Status: Fair Progress improving strength and transfers PT Short Term Goals Short Term Goals Time Frame: Feb 14, 2018 Transfers (B,C,W/C) (FIM): 5 Gait (FIM): 4 Distance (FIM): 3=150 ft Gait Distance Comment: 150ft with FWW Gait Level of Assist: 4 Gait Assistive Device: FWW Wheelchair Distance: 150'x2 PT Crime Scene Investigator Goals [facility] Goals PT Crime Scene Investigator Goals Time Frame: Feb 28, 2018 Transfers (B,C,W/C) (FIM): 6 Sit to Lying (QC): 6 Lying-Sitting on Side/Bed(QC): 6 Sit to Stand (QC): 6 Rollin Roll Left to Right (QC): 6 Chair/Kkv-jx-Bkces Xfer(QC): 6 Car Transfer (QC): 4 Does the Patient Walk: Yes Gait (FIM): 5 Gait distance (FIM): 0=561-07 ft Distance: 50 Walk 10 feet (QC): 6 Walk 10ft-Uneven Surface(QC): 6 Walk 50ft with 2 Turns (QC): 5 Walk 150 ft (QC): 5 Gait Level of Assist: 6 Gait Assistive Device: FWW Stairs (FIM): 3 # of Steps: 5 1 Step (curb) (QC): 5 4 Steps (QC): 4 12 Steps (QC): 88 Picking up an Object (QC): 2 PT Plan Problem List Problem List: Activity Tolerance, Functional Strength, Safety, Balance, Gait, Transfer, Bed Mobility, ROM Treatment/Plan Treatment Plan: Continue Plan of Care Treatment Plan: Bed Mobility, Concurrent Therapy, Functional Activity Juan José, Functional Strength, Group Therapy, Gait, Safety, Therapeutic Exercise, Transfers Treatment Duration: Feb 28, 2018 Frequency: At least 5 of 7 days/Wk (IRF) Estimated Hrs Per Day: 1.5 hours per day Patient and/or Family Agrees t: Yes Safety Risks/Education Patient Education: Transfer Techniques, Correct Positioning, W/C Management, Safety Issues Teaching Recipient: Patient Teaching Methods: Demonstration, Discussion Response to Teaching: Reinforcement Needed Time/GCodes Time In: 1330 Time Out: 1400 Total Billed Treatment Time: 30 Total Billed Treatment 1 visit EX 10' [facility] 20' ALESHIA PETERSEN PT Feb 11, 2018 14:00
--- NOTE | 2018-02-11 14:37 | Occupational Ther Daily Note ---
OT Current Status-Daily Note Subjective No pain reported. Appearance Pt. up in wheelchair. Pt. agrees to shower. Mental Status/Objective Patient Orientation: Person, Place, Time, Situation Functional [place] Measure 0=Not Assessed/NA 4=Minimal Assistance 1=Total Assistance 5=Supervision or Setup 2=Maximal Assistance 6=Modified [place] 3=Moderate Assistance 7=Complete [place] ADL-Treatment Functional [place] Measure 0=Not Assessed/NA 4=Minimal Assistance 1=Total Assistance 5=Supervision or Setup 2=Maximal Assistance 6=Modified [place] 3=Moderate Assistance 7=Complete IndependenceIRFPAI Quality Coding Scale 6 Independent with activity with or without an assistive device 5 Patient requires set up or clean up by helper. Patient completes activity by themselves 4 Supervision or touching assist (CGA). [place] provide cues , steadying assist 3 The helper provides less than half the effort to complete the activity 2 The helper provides more than half the effort to complete the activity 1 Dependent. The helper does all the effort to complete an activity 7 Patient refused to complete or attempt activity 9 The patient did not perform the activity before the current illness or injury 88 Not attempted due to Medical conditions or safety concerns Bathing (FIM): 3 (Pt required assist to wash rear ashan area and bilateral feet. ) Shower/Bathe Self (QC): 3 Upper Body (FIM): 5 Upper Body Dressing (QC): 4 Lower Body Dressing (FIM): 3 Lower Body Dressing (QC): 3 On/Off Footwear (QC): 3 Transfers (B, C, W/C) (FIM): 3 (Mod assist sit-stand. Pt. demonstrates weakness in left LE. Pt. demonstrates difficulty with maintaining standing balance on right LE. Pt. is able to squat pivot and reach toward right side and transfer to chair.) Education OT Patient Education: Correct positioning, Modified ADL techniques, Progress toward Goal/Update tx plan, Purpose of tx/functional activities, Reviewed precautions, Rehab process, Transfer techniques Teaching Recipient: Patient Teaching Methods: Demonstration, Discussion Response to Teaching: Verbalize Understanding, Return Demonstration OT Short Term Goals Short Term Goals Time Frame: Feb 14, 2018 Eating(FIM): 6 Grooming(FIM): 6 Bathing(FIM): 5 Upper Body Dressing(FIM): 5 Lower Body Dressing(FIM): 5 Toileting(FIM): 5 Transfers (B,C,W/C) (FIM): 5 Toilet/Commode Transfer(FIM): 5 Shower Transfer(FIM): 4 Additional Short Term Goals: 1-Demonstrate ADL Tasks, 2-Verbalize Understanding , 3-ImproveStrength/Juan José 1=Demonstrate adherence to instructed precautions during ADL tasks. 2=Patient will verbalize/demonstrate understanding of assistive devices/ modifications for ADL. 3=Patient will improve strength/tolerance for activity to enable patient to perform ADL's. OT Director Of Recreation Therapy Goals Director Of Recreation Therapy Goals Time Frame: Feb 21, 2018 Eating (FIM): 6 Eating (QC): 6 Groomin Oral Hygiene (QC): 6 Bathing(FIM): 6 Shower/Bathe Self (QC): 6 Upper Body Dressing(FIM): 6 Upper Body Dressing (QC): 6 Lower Body Dressing(FIM): 6 Lower Body Dressing (QC): 6 On/Off Footwear (QC): 6 Toileting(FIM): 6 Toileting Hygiene (QC): 6 Transfers (B,C,W/C) (FIM): 6 Toilet/Commode Transfer(FIM): 6 Toilet/Commode Transfer (QC): 6 Comprehension(FIM): 5 Expression (FIM): 5 Social Interaction(FIM): 5 Problem Solving(FIM): 5 Memory(FIM): 5 1=Demonstrate adherence to instructed precautions during ADL tasks. 2=Patient will verbalize/demonstrate understanding of assistive devices/ modifications for ADL. 3=Patient will improve strength/tolerance for activity to enable patient to perform ADL's. OT Education/Plan Problem List/Assessment Assessment: Decreased Activ Tolerance, Decreased UE Strength, Dependent Transfers, Impaired Bed Mobility, Impaired Coordination, Impaired Funct Balance , Impaired I ADL's, Impaired Self-Care Skills, Restricted Funct UE ROM Discharge Recommendations Plan/Recommendations: Continue POC Therapy D/C Recommendations: Assisted Living, Occupational Therapy Home Care, Scheduled Assistance Treatment Plan/Plan of Care Treatment,Training & Education: Yes Patient would benefit from OT for education, treatment and training to promote independence in ADL's, mobility, safety and/or upper extremity function for ADL' s. Plan of Care: ADL Retraining, Functional Mobility, Group Exercise/Act as Ind, UE Funct Exercise/Act Treatment Duration: Feb 21, 2018 Frequency: At least 5 of 7 days/Wk (IRF) Estimated Hrs Per Day: 1.5 hours per day Agreement: Yes Rehab Potential: Good Time/GCodes Start Time: 10:10 Stop Time: 11:30 Total Time Billed (hr/min): 80 Billed Treatment Time 1, ADL x 60minutes, FA x 20minutes DAGMAR MURGUIA OT Feb 11, 2018 14:37
--- NOTE | 2018-02-11 14:41 | Speech Therapy Daily Note ---
Speech Daily Progress Note Subjective Date Seen by Provider: Feb 11, 2018 Time Seen by Provider: 12:30 The patient was seated upright in recliner upon entrance. The patient greeted the clinician appropriately and was agreeable to participation in the cognitive treatment session. Objective - Analog Clock Reading: The patient demonstrated fair accuracy with analog clock reading, displaying 70% accuracy with mild clinician verbal prompting. The patient does report fluctuating vision. The patient stated the vision difficulty is worsening, therefore, the clinician notified the physician following today's session. - Daily Problem Solving: The patient demonstrated 60% accuracy with daily math problems which included calculating tip amounts, bill dates, recipes, and time. Assessment Assessment Current Status: Fair Progress Treatment Plan Continue Plan of Care Communication Comprehension: 4 Expression: 4 Social Cognition Social Interaction: 5 Problem Solvin Memory: 3 Speech Short Term Goals Short Term Goals Short Term Goals 1. The patient will demonstrate hyperfunctional voice exercises with 80% accuracy and mild clinician cueing. 2. The patient will demonstrate and recall three functional memory strategies for use at home, independently. Time Frame-STG: One Week Speech Yeast Pumper Goals Correction Goals 1. The patient will demonstrated improved expressive communication and cognitive skill for increased function and safety in the least restrictive setting. Time Frame: Three Weeks Comprehension: 5 Expression: 5 Social Interaction: 5 Problem Solvin Memory: 5 Speech-Plan Treatment Plan Speech Therapy Treatment Plan: Continue Plan of Care Continue skilled speech pathology to target functional problem solving and memory. Treatment Duration: Feb 27, 2018 Frequency: Modified Program (IRF) (Four to five times per week.) Estimated Hrs Per Day: .5 hour per day Rehab Potential: Good Safety Risks/Education Teaching Recipient: Patient Teaching Methods: Discussion Response to Teaching: Verbalize Understanding Education Topics Provided: Plan of Care, Recommendations Time Speech Therapy Time In: 12:30 Speech Therapy Time Out: 13:00 Total Billed Time: 30 Billed Treatment Time 1FANI ELIZABETH Feb 11, 2018 14:41
[2018-02-11 18:00] VITALS: BP 93/51
[2018-02-11] MEDS: MIRTAZAPINE 15 MG (REMERON) TAB PO SCH (21:15)
[2018-02-11] MEDS: ATORVASTATIN 20 MG (LIPITOR) TABLET PO SCH (21:15)
[2018-02-11] MEDS: ERYTHROMYCIN OPHTH OINT 1 GM (SINGLE USE) TUBE OP SCH (21:16)
[2018-02-11] MEDS: HYDROcodone/APAP 5 MG/325 MG (LORTAB) TAB PO PRN (21:16)
[2018-02-11] MEDS: LIDOCAINE PATCH REMOVAL TP SCH (21:44)
[2018-02-12 05:52] VITALS: BP 94/57
[2018-02-12] MEDS: LINAGLIPTIN (TRADJENTA) 5 MG TABLET PO SCH (05:57)
[2018-02-12] MEDS: PANTOPRAZOLE 20 MG TABLET (PROTONIX) PO SCH (05:57)
[2018-02-12] MEDS: inSUlin (REGULAR) HUMAN 1 UNIT/0.01 ML (CHARGE PER UNIT) SC SCH ×4 (05:57→21:44)
[2018-02-12] MEDS: TRIM/SULFAMETH 160/800 (SEPTRA DS) TAB PO SCH ×2 (05:57→17:36)
[2018-02-12] MEDS: KCL 20 MEQ TAB (K-DUR) PO SCH (05:57)
[2018-02-12] MEDS: GLIMEPIRIDE 2 MG (AMARYL) TAB PO SCH ×2 (05:57→17:36)
[2018-02-12] MEDS: TORSEMIDE 20 MG (DEMADEX) TAB PO SCH ×2 (05:57→17:36)
[2018-02-12] MEDS: GABAPENTIN 400 MG (NEURONTIN) CAP PO SCH ×3 (05:57→21:37)
[2018-02-12] MEDS: HYDROcodone/APAP 5 MG/325 MG (LORTAB) TAB PO PRN (05:58)
[2018-02-12 08:00] VITALS: BP 113/65
[2018-02-12] MEDS: LIDOCAINE (LIDODERM) 5% PATCH TOP SCH (08:33)
[2018-02-12] MEDS: BACLOFEN 10 MG (LIORESAL) TAB PO SCH ×3 (08:34→21:37)
[2018-02-12] MEDS: SERTRALINE 100 MG (ZOLOFT) TAB PO SCH (08:34)
[2018-02-12] MEDS: LORATADINE (CLARITIN) 10 MG TAB PO SCH (08:34)
[2018-02-12] MEDS: ASPIRIN E.C. 81 MG (ECOTRIN) TAB PO SCH (08:34)
[2018-02-12] MEDS: DOCUSATE SODIUM 100 MG (COLACE) CAP PO SCH ×2 (08:34→21:37)
[2018-02-12] MEDS: ALLOPURINOL 100 MG (ZYLOPRIM) TAB PO SCH (08:34)
[2018-02-12] MEDS: PHENYTOIN 100 MG (DILANTIN) CAP PO SCH (08:34)
[2018-02-12] MEDS: ATENOLOL 50 MG (TENORMIN) TAB PO SCH (08:34)
[2018-02-12] MEDS: lisINopril 20 MG (PRINIVIL) TABLET PO SCH (08:34)
[2018-02-12] MEDS: amLODIPine 2.5MG (NORVASC) TAB PO SCH (08:34)
[2018-02-12] MEDS: ARTIFICAL TEARS 0.4 ML UNIT DOSE (REFRESH PLUS) OU SCH ×4 (08:34→21:37)
[2018-02-12] MEDS: SENNA W/DOCUSATE (SENOKOT S) TABLET PO SCH ×2 (08:35→21:37)
[2018-02-12] MEDS: NEOMY/POLYM/HC (CORTISPORIN) 10 ML BTL OT SCH ×4 (08:35→21:46)
[2018-02-12] MEDS: IBUPROFEN 600 MG (MOTRIN) TAB PO PRN (08:39)
[2018-02-12] MEDS: FINASTERIDE (PROSCAR) 5 MG TAB PO SCH (09:01)
--- NOTE | 2018-02-12 09:04 | PM & R (SOAP) Progress Note ---
Subjective Time Seen by Provider: 08:45 Subjective/Events-last exam Patient was seen in his room this AM Discussed f/u with his OD upon discharge and need for KAFO left leg will see if head of academic technology consult can be arranged Will discuss with SW Patient min assist for transfers Review of Systems Neurological: Weakness Objective Exam Last Set of Vital Signs Vital Signs Date Time Temp Pulse Resp B/P (MAP) Pulse Ox O2 Delivery O2 Flow Rate FiO2 02/12/18 05:52 97.6 59 20 94/57 (69) 92 Room Air 02/08/18 06:00 2.00 Capillary Refill : I&O Intake and Output 02/12/18 00:00 Intake Total 750 ml Output Total 1350 ml Balance -600 ml Intake Oral 750 ml Output Urine Total 1350 ml Daily Weight Change No General: Alert, Oriented X3, Cooperative, No Acute Distress HEENT: Other (mild periorbital swelling) Neck: Supple, No JVD Lungs: Clear to Auscultation Heart: Regular Rate Abdomen: Normal Bowel Sounds Extremities: No Edema Neuro: Other (left HP mild cognitive deficict) Results Lab Laboratory Tests 02/09/18 11:12: Glucometer 176H 02/09/18 16:01: Glucometer 192H 02/09/18 21:20: Glucometer 114H 02/10/18 05:15: Glucometer 170H 02/10/18 06:36: White Blood Count 10.6, Red Blood Count 4.08L, Hemoglobin 12.5L, Hematocrit 37L , Mean Corpuscular Volume 90, Mean Corpuscular Hemoglobin 31, Mean Corpuscular Hemoglobin Concent 34, Red Cell Distribution Width 15.4H, Platelet Count 166, Mean Platelet Volume 10.4, Sodium Level 140, Potassium Level 3.9, Chloride Level 108H, Carbon Dioxide Level 23, Anion Gap 9, Blood Urea Nitrogen 44H, Creatinine 1.83H, Estimat Glomerular Filtration Rate 37, BUN/Creatinine Ratio 24 , Glucose Level 161H, Mean Blood Glucose 137H, Hemoglobin A1c 6.4H, Calcium Level 9.3, Total Bilirubin 0.3, Aspartate Amino Transf (AST/SGOT) 26, Alanine Aminotransferase (ALT/SGPT) 34, Alkaline Phosphatase 131, Total Protein 7.1, Albumin 3.7, Phenytoin (Dilantin) Level 2.0L 02/10/18 11:22: Glucometer 171H 02/10/18 15:43: Glucometer 153H 02/10/18 21:44: Glucometer 170H 02/11/18 06:15: Glucometer 148H 02/11/18 11:59: Glucometer 140H 02/11/18 16:06: Glucometer 134H 02/11/18 20:23: Glucometer 117H 02/12/18 05:55: Glucometer 112H Assessment/Plan Assessment Left HP Mild cognitive deficit 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
--- NOTE | 2018-02-12 09:06 | Behavioral Health Consult ---
Consult- Consult Date Seen by Provider: Feb 09, 2018 Time Seen by Provider: 11:15 Patient: Fidel Henriquez : 50 Date: 02-09-18 Referral: Dr. Roque [facility]#: [id number] CPT Code: 51889 Psychodiagnostic Examination 28871 Interactive Complexity, 1 unit(s) Start Time: 11:15 am Stop Time: 1:00 pm Chief Complaint: chronic pain, depression, suicide attempt at some point Referral: Fidel Henriquez is a 67-year-old, , male referred by Dr. Roque for a clinical diagnostic assessment. Information for this evaluation was gathered from self-report, clinical observation, hospital nurse, and medical records. Presenting Problem: Patients nurse reported that Fidel was admitted on February 06 from due to slurred speech and stroke like symptoms. She reported they ruled out that he had a stroke but he reported a history of depression. She denied him appearing tearful or depressed and denied any suicidal statements made to her or reported to her from previous nurses. Fidel was seen alone in his room and reported he has had health issues and memory problems. 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 He reported he does not feel he has enough to do at home and will lie in bed for hours due to not having enough to keep him busy. He reported his daughter helps care for him 16 hours a week and will take him places, which he enjoys. He reported he also has friends in the [facility] lives and he has a dog, but does not feel he has enough to do. He reported loss of pleasure, worthlessness, guilt, difficulty concentrating, hypersomnia, decreased appetite, and fatigue for years. He denied any current suicidal ideation but stated he attempted suicide once, over a year ago. He reported he was hospitalized for that attempt at [facility]. According to his medical records, he attempted suicide by overdosing on prescription pills in July 2006 and was hospitalized on the fifth floor which addressed psychiatric issues at that time. His records also indicate he was seen in the ER in October 2009 due to suicidal ideation but it was unclear if he was later hospitalized. Fidel reported problems with anxiety and stated he worries about his finances, kids, and one of his grandchildren, but denied it interfering with his daily functioning. Observations/Mental Status: Fidel was seen on the rehab floor and was alone. Overall appearance was disheveled. Fidel appeared to be a fair historian. Observed gait and gross motor movements indicated poor balance/coordination and he remained in his wheelchair during the consultation. Ann general approach to the evaluation indicated interest. Orientation was intact for person, place, time, and situation. Fidel evidenced fair understanding of the reason for the appointment. Ann in-session behavior was cooperative. The predominant mood was calm with affect appropriate to expressed concerns and presenting problem. Immediate attention and concentration was unremarkable clinically during the interview. Memory functioning appeared to be impaired with long-term recall difficulties. Level of intellectual functioning compared to same age peers was estimated to be in the average range. Thought processes were found to be generally logical, coherent and goal directed. Thought content appeared normal. Psychomotor functioning was within normal limits. Tone of voice was normal and controlled. Expressive speech was marked by fluent speech and language. Eye contact was fair. Insight was fair. Overall, style of interacting during the appointment was appropriate and motivated. Current/Previous Mental Health Treatment: Past psychiatric history was reported as first diagnosed with depression after his wifes three years ago. He reported he participated in group therapy at [place] which was associated with [facility] but was unsure when that was. He reported he also met with Dr. Andino at [facility] for individual therapy about three years ago. He reported he did not remember any other diagnoses. Fidel reported he made a suicide attempt at least a year ago, possibly longer, but struggled to remember exactly when. He reported he overdosed and was hospitalized. He reported he thought about suicide and [place] bridge [place] 1974 to commit suicide, but decided not to do so. He reported he currently meets with a psychiatrist at and has been going there for medication management for a year. Fidel reported he feels the medications he is currently prescribed have been beneficial. History of self or other harm includes one suicide attempt. Current destructive behavior patterns: none indicated or reported. Family psychiatric history was reported as his brother by suicide. He denied knowing any other mental health history due to him and his brother being adopted. 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 Vocational history or other skills: not assessed. Legal History: Legal history was not assessed. Family and Social Histories: Fidel reported he is a of three years. He reported he and his had a son and daughter; his son lives in [place] and his daughter lives in [place]. He reported he has a total of five grandkids, two nearby and three in [place]. He reported his friends and family have encouraged him to date, but he has not done so due to feeling too guilty about seeing another woman. Fidel reported he currently lives alone in a [facility] with his dog. Summary of Assessment Information/Prognosis: Fidel is a 67-year-old male. Following current assessment, presenting problem and symptoms appear consistent with a preliminary diagnosis of F33.1 Major Depressive Disorder, recurrent episode, moderate. Overall; prognosis is estimated to be guarded. Strengths/Weaknesses: Strengths/Resources: accepts feedback, sociable, stable living environment, supportive family, positive social support, and cares about others Liabilities/Barriers: health problems Diagnostic Impressions: F33.1 Major Depressive Disorder, recurrent episode, moderate Initial Treatment Plan/Recommendations: The recommendations at this time include the following: individual outpatient psychotherapy to help him learn how to better manage his depression, continue with home health care he is receiving and medication management. A follow up psychotherapy appointment has not been made due to not knowing his discharge date or when he would have transportation. It is recommended that his social services technician assist him in scheduling an appointment with [facility]. Fidel is recommended to return within one week for follow-up. Further disposition will be made at that time. CAMPOS RASMUSSEN Feb 12, 2018 09:06
--- NOTE | 2018-02-12 09:59 | Physical Therapy Daily Note ---
PT Daily Note-Current Subjective Patient in bed pre tx, agrees to PT, no complaints of pain. Appearance Patient in wheelchair at bedside post tx, has OT right after PT, has nurse call , phone, tray, all needs met. Mental Status Patient Orientation: Person, Place, Situation Transfers Functional [place] Measure 0=Not Assessed/NA 4=Minimal Assistance 1=Total Assistance 5=Supervision or Setup 2=Maximal Assistance 6=Modified [place] 3=Moderate Assistance 7=Complete IndependenceIRFPAI Quality Coding Scale 6 Independent with activity with or without an assistive device 5 Patient requires set up or clean up by helper. Patient completes activity by themselves 4 Supervision or touching assist (CGA). [place] provide cues , steadying assist 3 The helper provides less than half the effort to complete the activity 2 The helper provides more than half the effort to complete the activity 1 Dependent. The helper does all the effort to complete an activity 7 Patient refused to complete or attempt activity 9 The patient did not perform the activity before the current illness or injury 88 Not attempted due to Medical conditions or safety concerns Transfers (B, C, W/C) (FIM): 3 Scootin Rollin Supine to/from Sit: 3 Sit to/from Stand: 3 Bed to/from Chair: 4 Patient needs min/mod assist to stand from low surfaces. He almost fell out of bed going from supine to sit and would have if he didn't have help from therapist. Weight Bearing Weight Bearing/Tolerated Weight Bearing/Tolerated Gait Training Gait (FIM): 2 Distance: 100'x2 Gait Level of Assist: 4 Gait Persons Needed: 1 Gait Assistive Device: FWW Patient needs min assist for balance, uses an IROM brace on the left side. Wheelchair Training Does the Pt Use a Wheelchair?: Yes Wheelchair (FIM): 6 Distance: 150'x2 Type of Wheelchair: Manual Exercises Supine Ex: Bridging, Ankle pumps, Quad Set, Glut sets, Heel Slides, Short Arc Quads, Straight leg raise, Hip abd/add Supine Reps: 10 (just right side) LAQ alternating for 5 min Treatments bed mobility and transfers, ambulation, functional strengthening Assessment Current Status: Poor Progress no changes in mobility, patient has poor trunk strength and coordination PT Short Term Goals Short Term Goals Time Frame: Feb 14, 2018 Transfers (B,C,W/C) (FIM): 5 Gait (FIM): 4 Distance (FIM): 3=150 ft Gait Distance Comment: 150ft with FWW Gait Level of Assist: 4 Gait Assistive Device: FWW Wheelchair Distance: 150'x2 PT Halfway Goals Halfway Goals PT Knit Goods Washer Goals Time Frame: Feb 28, 2018 Transfers (B,C,W/C) (FIM): 6 Sit to Lying (QC): 6 Lying-Sitting on Side/Bed(QC): 6 Sit to Stand (QC): 6 Rollin Roll Left to Right (QC): 6 Chair/Snn-bi-Yyvog Xfer(QC): 6 Car Transfer (QC): 4 Does the Patient Walk: Yes Gait (FIM): 5 Gait distance (FIM): 6=945-15 ft Distance: 50 Walk 10 feet (QC): 6 Walk 10ft-Uneven Surface(QC): 6 Walk 50ft with 2 Turns (QC): 5 Walk 150 ft (QC): 5 Gait Level of Assist: 6 Gait Assistive Device: FWW Stairs (FIM): 3 # of Steps: 5 1 Step (curb) (QC): 5 4 Steps (QC): 4 12 Steps (QC): 88 Picking up an Object (QC): 2 PT Plan Problem List Problem List: Activity Tolerance, Functional Strength, Safety, Balance, Gait, Transfer, Bed Mobility, ROM Treatment/Plan Treatment Plan: Continue Plan of Care Treatment Plan: Bed Mobility, Concurrent Therapy, Functional Activity Juan José, Functional Strength, Group Therapy, Gait, Safety, Therapeutic Exercise, Transfers Treatment Duration: Feb 28, 2018 Frequency: At least 5 of 7 days/Wk (IRF) Estimated Hrs Per Day: 1.5 hours per day Patient and/or Family Agrees t: Yes Safety Risks/Education Patient Education: Gait Training, Transfer Techniques, Correct Positioning, W/ C Management, Safety Issues Teaching Recipient: Patient Teaching Methods: Demonstration, Discussion Response to Teaching: Reinforcement Needed Time/GCodes Time In: 900 Time Out: 1000 Total Billed Treatment Time: 60 Total Billed Treatment 1 visit GT 30' EX 20' FA 10' ALESHIA PETERSEN PT Feb 12, 2018 09:59
--- NOTE | 2018-02-12 10:50 | Speech Therapy Daily Note ---
Speech Daily Progress Note Subjective Date Seen by Provider: Feb 12, 2018 Time Seen by Provider: 08:30 The patient was seated upright in bed upon entrance. The patient greeted the clinician appropriately and was agreeable to participation in the cognitive treatment session. The patient did report pain, which he rated a 4, on the side of his left face. The RN was present and provided the patient with pain medication. Objective Functional Tasks and Orientation Strategies were continued on this date with the following results: - Reading Instructions: The patient displayed 60% accuracy with moderate clinician verbal cueing with reading and following directions. Directions included instructions to procedure, recipes, and prescription labels. - Reading a Calendar: The patient displayed 100% accuracy with reading a paper calendar, as well as, organizing a schedule and reading a TV program listing guide (independently). - Orientation: The patient was organized to month, day of week, date, and year with the aid of the in-room white board (external). Assessment Assessment Current Status: Good Progress Treatment Plan Continue Plan of Care Communication Comprehension: 4 Expression: 4 Social Cognition Social Interaction: 5 Problem Solvin Memory: 3 Speech Short Term Goals Short Term Goals Short Term Goals 1. The patient will demonstrate hyperfunctional voice exercises with 80% accuracy and mild clinician cueing. 2. The patient will demonstrate and recall three functional memory strategies for use at home, independently. Time Frame-STG: One Week Speech Lapeler Goals Lapeler Goals 1. The patient will demonstrated improved expressive communication and cognitive skill for increased function and safety in the least restrictive setting. Time Frame: Three Weeks Comprehension: 5 Expression: 5 Social Interaction: 5 Problem Solvin Memory: 5 Speech-Plan Treatment Plan Speech Therapy Treatment Plan: Continue Plan of Care Continue skilled speech pathology to target functional communication and problem solving. Treatment Duration: Feb 27, 2018 Frequency: Modified Program (IRF) (Four to five times per week.) Estimated Hrs Per Day: .5 hour per day Rehab Potential: Good Safety Risks/Education Teaching Recipient: Patient Teaching Methods: Discussion Response to Teaching: Verbalize Understanding Education Topics Provided: Orientation Strategies Time Speech Therapy Time In: 08:30 Speech Therapy Time Out: 09:00 Total Billed Time: 30 Billed Treatment Time FANI Koehler [facility] Feb 12, 2018 10:50
--- NOTE | 2018-02-12 14:36 | Occupational Ther Daily Note ---
OT Current Status-Daily Note Subjective No pain reported, except pt. states that his left UE is sensitive whenever OT applies pressure in bicep area. Appearance Pt. is up in wheelchair. Declines showering, but agrees to change his clothes and participate in OT. Mental Status/Objective Patient Orientation: Person, Place Functional [place] Measure 0=Not Assessed/NA 4=Minimal Assistance 1=Total Assistance 5=Supervision or Setup 2=Maximal Assistance 6=Modified [place] 3=Moderate Assistance 7=Complete [place] ADL-Treatment Functional [place] Measure 0=Not Assessed/NA 4=Minimal Assistance 1=Total Assistance 5=Supervision or Setup 2=Maximal Assistance 6=Modified [place] 3=Moderate Assistance 7=Complete IndependenceIRFPAI Quality Coding Scale 6 Independent with activity with or without an assistive device 5 Patient requires set up or clean up by helper. Patient completes activity by themselves 4 Supervision or touching assist (CGA). [place] provide cues , steadying assist 3 The helper provides less than half the effort to complete the activity 2 The helper provides more than half the effort to complete the activity 1 Dependent. The helper does all the effort to complete an activity 7 Patient refused to complete or attempt activity 9 The patient did not perform the activity before the current illness or injury 88 Not attempted due to Medical conditions or safety concerns Upper Body (FIM): 5 Upper Body Dressing (QC): 4 Lower Body Dressing (FIM): 3 (Pt. is able to get both shoes off, but is only able to get the left one back on. Attempts to use AE to don right shoe. Pt. is able to doff pants, but requires min assist to get over his feet, and then max assist to stand and cake puller his hips. ) Lower Body Dressing (QC): 3 On/Off Footwear (QC): 3 Transfers (B, C, W/C) (FIM): 2 (Pt. demonstrated increased difficulty today with sit-stand and with balance while in stance. Demonstrates decreased awareness at times. Attempted to stand without OT assist.) Other Treatment Pt. completed armbike x 11 minutes in gym at mod resistance. Pt. then tolerated PROM and AAROM to left UE in all planes and with gentle massage to left UE. Pt. demonstrates trigger point pain in left bicep area and certain areas with movement of wrist and elbow. Pt. seems to be "tender" all over. Self propelled wheelchair back to room. Transferred to chair with mod assist and then pt. "threw" self into chair without slow decent. All needs met in room. Education OT Patient Education: Correct positioning, Modified ADL techniques, Progress toward Goal/Update tx plan, Purpose of tx/functional activities, Reviewed precautions, Rehab process, Transfer techniques, Use of adapted equipment Teaching Recipient: Patient Teaching Methods: Demonstration, Discussion Response to Teaching: Verbalize Understanding, Return Demonstration OT Short Term Goals Short Term Goals Time Frame: Feb 14, 2018 Eating(FIM): 6 Grooming(FIM): 6 Bathing(FIM): 5 Upper Body Dressing(FIM): 5 Lower Body Dressing(FIM): 5 Toileting(FIM): 5 Transfers (B,C,W/C) (FIM): 5 Toilet/Commode Transfer(FIM): 5 Shower Transfer(FIM): 4 Additional Short Term Goals: 1-Demonstrate ADL Tasks, 2-Verbalize Understanding , 3-ImproveStrength/Juan José 1=Demonstrate adherence to instructed precautions during ADL tasks. 2=Patient will verbalize/demonstrate understanding of assistive devices/ modifications for ADL. 3=Patient will improve strength/tolerance for activity to enable patient to perform ADL's. OT Senior Care Goals Senior Care Goals Time Frame: Feb 21, 2018 Eating (FIM): 6 Eating (QC): 6 Groomin Oral Hygiene (QC): 6 Bathing(FIM): 6 Shower/Bathe Self (QC): 6 Upper Body Dressing(FIM): 6 Upper Body Dressing (QC): 6 Lower Body Dressing(FIM): 6 Lower Body Dressing (QC): 6 On/Off Footwear (QC): 6 Toileting(FIM): 6 Toileting Hygiene (QC): 6 Transfers (B,C,W/C) (FIM): 6 Toilet/Commode Transfer(FIM): 6 Toilet/Commode Transfer (QC): 6 Comprehension(FIM): 5 Expression (FIM): 5 Social Interaction(FIM): 5 Problem Solving(FIM): 5 Memory(FIM): 5 1=Demonstrate adherence to instructed precautions during ADL tasks. 2=Patient will verbalize/demonstrate understanding of assistive devices/ modifications for ADL. 3=Patient will improve strength/tolerance for activity to enable patient to perform ADL's. OT Education/Plan Problem List/Assessment Assessment: Decreased Activ Tolerance, Decreased Safety Aware, Decreased UE Strength, Dependent Transfers, Impaired Bed Mobility, Impaired Coordination, Impaired Funct Balance, Impaired I ADL's, Impaired Self-Care Skills, Restricted Funct UE ROM Discharge Recommendations Plan/Recommendations: Continue POC Therapy D/C Recommendations: Scheduled Assistance Comment Discharge needs and equipment recommendations to be determined. Treatment Plan/Plan of Care Treatment,Training & Education: Yes Patient would benefit from OT for education, treatment and training to promote independence in ADL's, mobility, safety and/or upper extremity function for ADL' s. Plan of Care: ADL Retraining, Functional Mobility, Group Exercise/Act as Ind, UE Funct Exercise/Act Treatment Duration: Feb 21, 2018 Frequency: At least 5 of 7 days/Wk (IRF) Estimated Hrs Per Day: 1.5 hours per day Agreement: Yes Rehab Potential: Good Time/GCodes Start Time: 10:10 Stop Time: 11:25 Total Time Billed (hr/min): 75 Billed Treatment Time 1, ADL x 30minutes, Ex x 45minutes DAGMAR MURGUIA OT Feb 12, 2018 14:36
--- NOTE | 2018-02-12 15:04 | Physical Therapy Daily Note ---
PT Daily Note-Current Subjective Patient in recliner pre tx, agrees to PT, no complaints of pain. Appearance Patient in recliner post tx with nurse call, phone, tray, all needs met. Mental Status Patient Orientation: Person, Place, Situation Transfers Functional [place] Measure 0=Not Assessed/NA 4=Minimal Assistance 1=Total Assistance 5=Supervision or Setup 2=Maximal Assistance 6=Modified [place] 3=Moderate Assistance 7=Complete IndependenceIRFPAI Quality Coding Scale 6 Independent with activity with or without an assistive device 5 Patient requires set up or clean up by helper. Patient completes activity by themselves 4 Supervision or touching assist (CGA). [place] provide cues , steadying assist 3 The helper provides less than half the effort to complete the activity 2 The helper provides more than half the effort to complete the activity 1 Dependent. The helper does all the effort to complete an activity 7 Patient refused to complete or attempt activity 9 The patient did not perform the activity before the current illness or injury 88 Not attempted due to Medical conditions or safety concerns Transfers (B, C, W/C) (FIM): 4 Sit to/from Stand: 4 Bed to/from Chair: 4 Min assist for sit to stand, CGA for the transfer, no knee buckling this afternoon. Weight Bearing Weight Bearing/Tolerated Weight Bearing/Tolerated Wheelchair Training Does the Pt Use a Wheelchair?: Yes Wheelchair (FIM): 6 Distance: 150'x2 Type of Wheelchair: Manual Exercises NuStep Minutes: 15 NuStep Workload: 5 Treatments transfers, wheelchair mobility, functional strengthening Assessment Current Status: Fair Progress improved transfers PT Short Term Goals Short Term Goals Time Frame: Feb 14, 2018 Transfers (B,C,W/C) (FIM): 5 Gait (FIM): 4 Distance (FIM): 3=150 ft Gait Distance Comment: 150ft with FWW Gait Level of Assist: 4 Gait Assistive Device: FWW Wheelchair Distance: 150'x2 PT Residential Goals Residential Goals PT Residential Goals Time Frame: Feb 28, 2018 Transfers (B,C,W/C) (FIM): 6 Sit to Lying (QC): 6 Lying-Sitting on Side/Bed(QC): 6 Sit to Stand (QC): 6 Rollin Roll Left to Right (QC): 6 Chair/Daa-xz-Xcnga Xfer(QC): 6 Car Transfer (QC): 4 Does the Patient Walk: Yes Gait (FIM): 5 Gait distance (FIM): 6=298-07 ft Distance: 50 Walk 10 feet (QC): 6 Walk 10ft-Uneven Surface(QC): 6 Walk 50ft with 2 Turns (QC): 5 Walk 150 ft (QC): 5 Gait Level of Assist: 6 Gait Assistive Device: FWW Stairs (FIM): 3 # of Steps: 5 1 Step (curb) (QC): 5 4 Steps (QC): 4 12 Steps (QC): 88 Picking up an Object (QC): 2 PT Plan Problem List Problem List: Activity Tolerance, Functional Strength, Safety, Balance, Gait, Transfer, Bed Mobility, ROM Treatment/Plan Treatment Plan: Continue Plan of Care Treatment Plan: Bed Mobility, Concurrent Therapy, Functional Activity Juan José, Functional Strength, Group Therapy, Gait, Safety, Therapeutic Exercise, Transfers Treatment Duration: Feb 28, 2018 Frequency: At least 5 of 7 days/Wk (IRF) Estimated Hrs Per Day: 1.5 hours per day Patient and/or Family Agrees t: Yes Safety Risks/Education Patient Education: Transfer Techniques, Correct Positioning, W/C Management, Safety Issues Teaching Recipient: Patient Teaching Methods: Demonstration, Discussion Response to Teaching: Reinforcement Needed Time/GCodes Time In: 1430 Time Out: 1500 Total Billed Treatment Time: 30 Total Billed Treatment 1 visit EX 15' [facility] 15' ALESHIA PETERSEN PT Feb 12, 2018 15:04
[2018-02-12 16:53] VITALS: BP 107/61
[2018-02-12] MEDS: ERYTHROMYCIN OPHTH OINT 1 GM (SINGLE USE) TUBE OP SCH (21:37)
[2018-02-12] MEDS: MIRTAZAPINE 15 MG (REMERON) TAB PO SCH (21:37)
[2018-02-12] MEDS: ATORVASTATIN 20 MG (LIPITOR) TABLET PO SCH (21:38)
[2018-02-12] MEDS: LIDOCAINE PATCH REMOVAL TP SCH (21:44)
[2018-02-13 06:00] VITALS: BP 90/60
[2018-02-13] MEDS: TORSEMIDE 20 MG (DEMADEX) TAB PO SCH ×2 (06:14→17:34)
[2018-02-13] MEDS: KCL 20 MEQ TAB (K-DUR) PO SCH (06:14)
[2018-02-13] MEDS: GLIMEPIRIDE 2 MG (AMARYL) TAB PO SCH ×2 (06:14→17:34)
[2018-02-13] MEDS: LINAGLIPTIN (TRADJENTA) 5 MG TABLET PO SCH (06:14)
[2018-02-13] MEDS: inSUlin (REGULAR) HUMAN 1 UNIT/0.01 ML (CHARGE PER UNIT) SC SCH ×4 (06:15→20:50)
[2018-02-13] MEDS: PANTOPRAZOLE 20 MG TABLET (PROTONIX) PO SCH (06:15)
[2018-02-13] MEDS: GABAPENTIN 400 MG (NEURONTIN) CAP PO SCH ×3 (06:15→20:44)
[2018-02-13] MEDS: TRIM/SULFAMETH 160/800 (SEPTRA DS) TAB PO SCH ×2 (06:15→17:34)
[2018-02-13] MEDS: HYDROcodone/APAP 5 MG/325 MG (LORTAB) TAB PO PRN ×2 (06:15→17:34)
[2018-02-13] MEDS: FINASTERIDE (PROSCAR) 5 MG TAB PO SCH (08:18)
[2018-02-13] MEDS: SERTRALINE 100 MG (ZOLOFT) TAB PO SCH (08:26)
[2018-02-13] MEDS: NEOMY/POLYM/HC (CORTISPORIN) 10 ML BTL OT SCH ×4 (08:26→20:44)
[2018-02-13] MEDS: IBUPROFEN 600 MG (MOTRIN) TAB PO PRN (08:26)
[2018-02-13] MEDS: ALLOPURINOL 100 MG (ZYLOPRIM) TAB PO SCH (08:26)
[2018-02-13] MEDS: PHENYTOIN 100 MG (DILANTIN) CAP PO SCH (08:26)
[2018-02-13] MEDS: BACLOFEN 10 MG (LIORESAL) TAB PO SCH ×3 (08:27→20:43)
[2018-02-13] MEDS: amLODIPine 2.5MG (NORVASC) TAB PO SCH (08:27)
[2018-02-13] MEDS: LIDOCAINE (LIDODERM) 5% PATCH TOP SCH (08:27)
[2018-02-13] MEDS: ASPIRIN E.C. 81 MG (ECOTRIN) TAB PO SCH (08:27)
[2018-02-13] MEDS: ARTIFICAL TEARS 0.4 ML UNIT DOSE (REFRESH PLUS) OU SCH ×4 (08:27→20:44)
[2018-02-13] MEDS: LORATADINE (CLARITIN) 10 MG TAB PO SCH (08:27)
[2018-02-13] MEDS: SENNA W/DOCUSATE (SENOKOT S) TABLET PO SCH ×2 (08:34→20:42)
[2018-02-13] MEDS: DOCUSATE SODIUM 100 MG (COLACE) CAP PO SCH ×2 (08:34→20:43)
[2018-02-13] MEDS: ATENOLOL 50 MG (TENORMIN) TAB PO SCH (08:35)
[2018-02-13] MEDS: lisINopril 20 MG (PRINIVIL) TABLET PO SCH (08:35)
[2018-02-13 08:36] VITALS: BP 95/57
--- NOTE | 2018-02-13 10:00 | PM & R (SOAP) Progress Note ---
Subjective Time Seen by Provider: 08:50 Subjective/Events-last exam Patient was seen in his room this AM Patient Min assist for transfers Labs / Accucheks noted Discussed case with RN Patient concerned re action tremors left hand -mostlikely related to his weakness will monitor Review of Systems Neurological: Other (tremors) Objective Exam Last Set of Vital Signs Vital Signs Date Time Temp Pulse Resp B/P (MAP) Pulse Ox O2 Delivery O2 Flow Rate FiO2 02/13/18 09:11 Room Air 02/13/18 08:36 58 95/57 (70) 02/13/18 08:17 2.00 02/13/18 06:00 97.7 20 96 Capillary Refill : I&O Intake and Output 02/13/18 00:00 Intake Total 3460 ml Output Total 2000 ml Balance 1460 ml Intake Oral 3460 ml Output Urine Total 2000 ml General: Alert, Oriented X3, Cooperative, No Acute Distress HEENT: Other (mild periorbital swelling) Neck: Supple, No JVD Lungs: Clear to Auscultation Heart: Regular Rate Abdomen: Normal Bowel Sounds Extremities: No Edema Neuro: Other (left HP mild cognitive deficict) Results Lab Laboratory Tests 02/10/18 11:22: Glucometer 171H 02/10/18 15:43: Glucometer 153H 02/10/18 21:44: Glucometer 170H 02/11/18 06:15: Glucometer 148H 02/11/18 11:59: Glucometer 140H 02/11/18 16:06: Glucometer 134H 02/11/18 20:23: Glucometer 117H 02/12/18 05:55: Glucometer 112H 02/12/18 11:08: Glucometer 188H 02/12/18 15:55: Glucometer 95 02/12/18 20:07: Glucometer 246H 02/13/18 05:34: Glucometer 190H Assessment/Plan Assessment Left HP associated with action tremors Mild cognitive deficit 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
--- NOTE | 2018-02-13 11:25 | Speech Therapy Daily Note ---
Speech Daily Progress Note Subjective Date Seen by Provider: Feb 13, 2018 Time Seen by Provider: 08:30 The patient was seated upright in recliner upon entrance. The patient reports increased tremors in his left arm/hand, as well as, continued left face pain. The patient's RN was present in the room who was addressing the patient's concerns. The patient was agreeable to participation in the cognitive therapy. Objective - During the patient's previous session, he reported (and the clinician noted) difficulty with short-term memory. Due to this, external memory strategies were reviewed on this date. Per patient, he uses a calendar, an appointment sheet from the provider, and his phone to keep track of physician visits. Additionally , the patient has four pill boxes (one for each week of the month) which his daughter arranges for him. - Orientation: The patient is independently oriented to self, location, month, day of week, date, and year. Assessment Assessment Current Status: Good Progress Treatment Plan Continue Plan of Care Communication Comprehension: 4 Expression: 4 Social Cognition Social Interaction: 5 Problem Solvin Memory: 3 Speech Short Term Goals Short Term Goals Short Term Goals 1. The patient will demonstrate hyperfunctional voice exercises with 80% accuracy and mild clinician cueing. 2. The patient will demonstrate and recall three functional memory strategies for use at home, independently. Time Frame-STG: One Week Speech Field Service Representative Goals Detention Goals 1. The patient will demonstrated improved expressive communication and cognitive skill for increased function and safety in the least restrictive setting. Time Frame: Three Weeks Comprehension: 5 Expression: 5 Social Interaction: 5 Problem Solvin Memory: 5 Speech-Plan Treatment Plan Speech Therapy Treatment Plan: Continue Plan of Care Continue skilled speech pathology to target functional problem solving and memory. Treatment Duration: Feb 27, 2018 Frequency: Modified Program (IRF) (Four to five times per week.) Estimated Hrs Per Day: .5 hour per day Rehab Potential: Good Safety Risks/Education Teaching Recipient: Patient Teaching Methods: Discussion Response to Teaching: Verbalize Understanding, Return Demonstration Education Topics Provided: External Memory Strategies Time Speech Therapy Time In: 08:30 Speech Therapy Time Out: 09:00 Total Billed Time: 30 Billed Treatment Time FANI Koehler [facility] Feb 13, 2018 11:25
--- NOTE | 2018-02-13 11:58 | Physical Therapy Daily Note ---
PT Daily Note-Current Subjective Patient in recliner pre tx, agrees to PT, no complaints of pain. Appearance Patient in recliner post tx with nurse call, phone, tray, all needs met. Mental Status Patient Orientation: Normal For Age Transfers Functional [place] Measure 0=Not Assessed/NA 4=Minimal Assistance 1=Total Assistance 5=Supervision or Setup 2=Maximal Assistance 6=Modified [place] 3=Moderate Assistance 7=Complete IndependenceIRFPAI Quality Coding Scale 6 Independent with activity with or without an assistive device 5 Patient requires set up or clean up by helper. Patient completes activity by themselves 4 Supervision or touching assist (CGA). [place] provide cues , steadying assist 3 The helper provides less than half the effort to complete the activity 2 The helper provides more than half the effort to complete the activity 1 Dependent. The helper does all the effort to complete an activity 7 Patient refused to complete or attempt activity 9 The patient did not perform the activity before the current illness or injury 88 Not attempted due to Medical conditions or safety concerns Transfers (B, C, W/C) (FIM): 3 Scootin Rollin Supine to/from Sit: 3 Sit to/from Stand: 3 Bed to/from Chair: 3 Patient needed multiple attempts to stand and his right knee was buckling during the transfer. Weight Bearing Weight Bearing/Tolerated Weight Bearing/Tolerated Gait Training Gait (FIM): 2 Distance: 50', 25' Gait Level of Assist: 4 Gait Persons Needed: 1 Gait Assistive Device: FWW Patient needed min assist for LOB that occurred frequently, also his right knee buckled often, he wore a IROM brace on the left leg. Ambulation had to be stopped by therapist due to safety reasons, the patient wanted to continue even though his knee was buckling and therapist was having to keep him from falling. Wheelchair Training Does the Pt Use a Wheelchair?: Yes Wheelchair (FIM): 6 Distance: 150'x2 Exercises Seated Therapy Exercises: Ankle pumps, Long arc quads (alternating for 5 min), Hip flexion, Hip abd/add Seated Reps: 20 Treatments bed mobility and transfers, ambulation, wheelchair mobility, functional strengthening Assessment Current Status: Poor Progress worse balance, right knee buckling PT Short Term Goals Short Term Goals Time Frame: Feb 14, 2018 Transfers (B,C,W/C) (FIM): 5 Gait (FIM): 4 Distance (FIM): 3=150 ft Gait Distance Comment: 150ft with FWW Gait Level of Assist: 4 Gait Assistive Device: FWW Wheelchair Distance: 150'x2 PT [facility] Goals Heddle Machine Operator Goals PT Heddle Machine Operator Goals Time Frame: Feb 28, 2018 Transfers (B,C,W/C) (FIM): 6 Sit to Lying (QC): 6 Lying-Sitting on Side/Bed(QC): 6 Sit to Stand (QC): 6 Rollin Roll Left to Right (QC): 6 Chair/Bcq-rc-Lvfau Xfer(QC): 6 Car Transfer (QC): 4 Does the Patient Walk: Yes Gait (FIM): 5 Gait distance (FIM): 6=117-32 ft Distance: 50 Walk 10 feet (QC): 6 Walk 10ft-Uneven Surface(QC): 6 Walk 50ft with 2 Turns (QC): 5 Walk 150 ft (QC): 5 Gait Level of Assist: 6 Gait Assistive Device: FWW Stairs (FIM): 3 # of Steps: 5 1 Step (curb) (QC): 5 4 Steps (QC): 4 12 Steps (QC): 88 Picking up an Object (QC): 2 PT Plan Problem List Problem List: Activity Tolerance, Functional Strength, Safety, Balance, Gait, Transfer, Bed Mobility, ROM Treatment/Plan Treatment Plan: Continue Plan of Care Treatment Plan: Bed Mobility, Concurrent Therapy, Functional Activity Juan José, Functional Strength, Group Therapy, Gait, Safety, Therapeutic Exercise, Transfers Treatment Duration: Feb 28, 2018 Frequency: At least 5 of 7 days/Wk (IRF) Estimated Hrs Per Day: 1.5 hours per day Patient and/or Family Agrees t: Yes Safety Risks/Education Patient Education: Gait Training, Transfer Techniques, Correct Positioning, W/ C Management, Safety Issues Teaching Recipient: Patient Teaching Methods: Demonstration, Discussion Response to Teaching: Reinforcement Needed Time/GCodes Time In: 1100 Time Out: 1145 Total Billed Treatment Time: 45 Total Billed Treatment 1 visit GT 30' EX 15' ALESHIA PETERSEN PT Feb 13, 2018 11:58
--- NOTE | 2018-02-13 14:36 | Therapy Group Daily Note ---
Therapy Daily Group Note Other/Notes Each patient participated in group therapy in the common area of rehab. Each patient ambulated or was transported to the common area and everyone sat in a [place]. Each patient then had to introduce themselves, state where they were from and answer a question that involved memory and critical thinking. The group was oriented to rehab due to having a lot of new patients and each discipline was explained and the their daily rehab schedule. Then the group was educated, with encouraged patient interaction, about the senses and changes with aging and injury. Home safety and driving was also covered. Interaction between patients and therapist and other patients was encouraged. Patient performed a stereoagnosis activity at the end of therapy. Each patient then ambulated or was transported back to their room and placed in chair or bed with nurse call, phone, all needs met. Start Time: 13:00 Stop Time: 14:15 Total Billed Treatment Time: 75 Total Billed Treatment 1 visit GRP 75' ALESHIA PETERSEN PT Feb 13, 2018 14:36
--- NOTE | 2018-02-13 15:13 | Occupational Ther Daily Note ---
OT Current Status-Daily Note Subjective Pt alert, sitting in recliner. Pt agreed to therapy. No c/o pain. Mental Status/Objective Patient Orientation: Person, Place, Time, Situation Functional [place] Measure 0=Not Assessed/NA 4=Minimal Assistance 1=Total Assistance 5=Supervision or Setup 2=Maximal Assistance 6=Modified [place] 3=Moderate Assistance 7=Complete [place] ADL-Treatment Pt's B LE's buckle with transfers. Assist x2 for transfers and for lower body dressing. Pt transferred into rolling shower chair with cutout. Pt was transferred into shower with chair. Pt completed shower after set up, able to reach all areas. Pt then completed grooming sitting at sink. Pt donned upper body clothing by self after set up. Pt required assist to don lower body clothing and assist x2 to hike pants over hips. After therapy, pt sitting in recliner with call light/phone. All needs met in room. Functional [place] Measure 0=Not Assessed/NA 4=Minimal Assistance 1=Total Assistance 5=Supervision or Setup 2=Maximal Assistance 6=Modified [place] 3=Moderate Assistance 7=Complete IndependenceIRFPAI Quality Coding Scale 6 Independent with activity with or without an assistive device 5 Patient requires set up or clean up by helper. Patient completes activity by themselves 4 Supervision or touching assist (CGA). [place] provide cues , steadying assist 3 The helper provides less than half the effort to complete the activity 2 The helper provides more than half the effort to complete the activity 1 Dependent. The helper does all the effort to complete an activity 7 Patient refused to complete or attempt activity 9 The patient did not perform the activity before the current illness or injury 88 Not attempted due to Medical conditions or safety concerns Grooming (FIM): 6 Oral Hygiene (QC): 6 Bathing (FIM): 1 (Assist to dry buttocks, x2) Shower/Bathe Self (QC): 1 Upper Body (FIM): 5 Upper Body Dressing (QC): 5 Lower Body Dressing (FIM): 1 Lower Body Dressing (QC): 1 Shower Transfer(FIM): 1 OT Short Term Goals Short Term Goals Time Frame: Feb 14, 2018 Eating(FIM): 6 Grooming(FIM): 6 Bathing(FIM): 5 Upper Body Dressing(FIM): 5 Lower Body Dressing(FIM): 5 Toileting(FIM): 5 Transfers (B,C,W/C) (FIM): 5 Toilet/Commode Transfer(FIM): 5 Shower Transfer(FIM): 4 Additional Short Term Goals: 1-Demonstrate ADL Tasks, 2-Verbalize Understanding , 3-ImproveStrength/Juan José 1=Demonstrate adherence to instructed precautions during ADL tasks. 2=Patient will verbalize/demonstrate understanding of assistive devices/ modifications for ADL. 3=Patient will improve strength/tolerance for activity to enable patient to perform ADL's. OT Half-Way Goals Community Mental Health Social Worker Goals Time Frame: Feb 21, 2018 Eating (FIM): 6 Eating (QC): 6 Groomin Oral Hygiene (QC): 6 Bathing(FIM): 6 Shower/Bathe Self (QC): 6 Upper Body Dressing(FIM): 6 Upper Body Dressing (QC): 6 Lower Body Dressing(FIM): 6 Lower Body Dressing (QC): 6 On/Off Footwear (QC): 6 Toileting(FIM): 6 Toileting Hygiene (QC): 6 Transfers (B,C,W/C) (FIM): 6 Toilet/Commode Transfer(FIM): 6 Toilet/Commode Transfer (QC): 6 Comprehension(FIM): 5 Expression (FIM): 5 Social Interaction(FIM): 5 Problem Solving(FIM): 5 Memory(FIM): 5 1=Demonstrate adherence to instructed precautions during ADL tasks. 2=Patient will verbalize/demonstrate understanding of assistive devices/ modifications for ADL. 3=Patient will improve strength/tolerance for activity to enable patient to perform ADL's. OT Education/Plan Discharge Recommendations Plan/Recommendations: Continue POC Treatment Plan/Plan of Care Patient would benefit from OT for education, treatment and training to promote independence in ADL's, mobility, safety and/or upper extremity function for ADL' s. Plan of Care: ADL Retraining, Functional Mobility, Group Exercise/Act as Ind, UE Funct Exercise/Act Treatment Duration: Feb 21, 2018 Frequency: At least 5 of 7 days/Wk (IRF) Estimated Hrs Per Day: 1.5 hours per day Agreement: Yes Rehab Potential: Good Time/GCodes Start Time: 09:00 Stop Time: 10:00 Total Time Billed (hr/min): 60 Billed Treatment Time 1 visit-ADL 4 (60 min) TRENT VALENTE Feb 13, 2018 15:13
[2018-02-13 18:55] VITALS: BP 108/65
[2018-02-13] MEDS: ATORVASTATIN 20 MG (LIPITOR) TABLET PO SCH (20:42)
[2018-02-13] MEDS: MIRTAZAPINE 15 MG (REMERON) TAB PO SCH (20:43)
[2018-02-13] MEDS: LIDOCAINE PATCH REMOVAL TP SCH (20:45)
[2018-02-13] MEDS: ERYTHROMYCIN OPHTH OINT 1 GM (SINGLE USE) TUBE OP SCH (20:51)
[2018-02-14 05:24] VITALS: BP 107/51
[2018-02-14] MEDS: GLIMEPIRIDE 2 MG (AMARYL) TAB PO SCH ×2 (06:36→17:08)
[2018-02-14] MEDS: LINAGLIPTIN (TRADJENTA) 5 MG TABLET PO SCH (06:36)
[2018-02-14] MEDS: TORSEMIDE 20 MG (DEMADEX) TAB PO SCH ×2 (06:36→17:08)
[2018-02-14] MEDS: inSUlin (REGULAR) HUMAN 1 UNIT/0.01 ML (CHARGE PER UNIT) SC SCH ×4 (06:36→21:02)
[2018-02-14] MEDS: TRIM/SULFAMETH 160/800 (SEPTRA DS) TAB PO SCH ×2 (06:36→17:07)
[2018-02-14] MEDS: GABAPENTIN 400 MG (NEURONTIN) CAP PO SCH ×3 (06:36→21:02)
[2018-02-14] MEDS: KCL 20 MEQ TAB (K-DUR) PO SCH (06:36)
[2018-02-14] MEDS: PANTOPRAZOLE 20 MG TABLET (PROTONIX) PO SCH (06:36)
[2018-02-14] MEDS: SERTRALINE 100 MG (ZOLOFT) TAB PO SCH (09:26)
[2018-02-14] MEDS: amLODIPine 2.5MG (NORVASC) TAB PO SCH (09:26)
[2018-02-14] MEDS: SENNA W/DOCUSATE (SENOKOT S) TABLET PO SCH ×2 (09:27→21:00)
[2018-02-14] MEDS: FINASTERIDE (PROSCAR) 5 MG TAB PO SCH (09:27)
[2018-02-14] MEDS: ATENOLOL 50 MG (TENORMIN) TAB PO SCH (09:27)
[2018-02-14] MEDS: lisINopril 20 MG (PRINIVIL) TABLET PO SCH (09:28)
[2018-02-14 09:30] VITALS: BP 120/71
[2018-02-14] MEDS: ALLOPURINOL 100 MG (ZYLOPRIM) TAB PO SCH (09:33)
[2018-02-14] MEDS: BACLOFEN 10 MG (LIORESAL) TAB PO SCH ×3 (09:33→21:00)
[2018-02-14] MEDS: ASPIRIN E.C. 81 MG (ECOTRIN) TAB PO SCH (09:33)
[2018-02-14] MEDS: LORATADINE (CLARITIN) 10 MG TAB PO SCH (09:33)
[2018-02-14] MEDS: PHENYTOIN 100 MG (DILANTIN) CAP PO SCH (09:33)
[2018-02-14] MEDS: ARTIFICAL TEARS 0.4 ML UNIT DOSE (REFRESH PLUS) OU SCH ×4 (09:40→21:03)
[2018-02-14] MEDS: NEOMY/POLYM/HC (CORTISPORIN) 10 ML BTL OT SCH ×4 (09:42→21:03)
[2018-02-14] MEDS: LIDOCAINE (LIDODERM) 5% PATCH TOP SCH (09:43)
[2018-02-14] MEDS: DOCUSATE SODIUM 100 MG (COLACE) CAP PO SCH ×2 (09:43→21:00)
[2018-02-14] MEDS: HYDROcodone/APAP 5 MG/325 MG (LORTAB) TAB PO PRN (09:48)
--- NOTE | 2018-02-14 10:18 | Physical Therapy Daily Note ---
PT Daily Note-Current Subjective Pt. agrees to Up in chair. Ready for breakfast. C/o pain in back at 4/10. Pain Numeric Pain Scale: 4 Location: Medial Location Body Site: Back Pain Description: Ache Mental Status Patient Orientation: Normal For Age Transfers Functional [place] Measure 0=Not Assessed/NA 4=Minimal Assistance 1=Total Assistance 5=Supervision or Setup 2=Maximal Assistance 6=Modified [place] 3=Moderate Assistance 7=Complete IndependenceIRFPAI Quality Coding Scale 6 Independent with activity with or without an assistive device 5 Patient requires set up or clean up by helper. Patient completes activity by themselves 4 Supervision or touching assist (CGA). [place] provide cues , steadying assist 3 The helper provides less than half the effort to complete the activity 2 The helper provides more than half the effort to complete the activity 1 Dependent. The helper does all the effort to complete an activity 7 Patient refused to complete or attempt activity 9 The patient did not perform the activity before the current illness or injury 88 Not attempted due to Medical conditions or safety concerns Transfers (B, C, W/C) (FIM): 4 Scootin Rollin Supine to/from Sit: 4 (HOB up) sit to stand . Weight Bearing Weight Bearing/Tolerated Weight Bearing/Tolerated Exercises Supine Ex: Ankle pumps, Hip abd/add Supine Reps: 10 Seated Therapy Exercises: Ankle pumps, Long arc quads, Hip flexion Seated Reps: 10 Assessment Current Status: Fair Progress dependent for all safety and mobility PT Short Term Goals Short Term Goals Time Frame: Feb 14, 2018 Transfers (B,C,W/C) (FIM): 5 Gait (FIM): 4 Distance (FIM): 3=150 ft Gait Distance Comment: 150ft with FWW Gait Level of Assist: 4 Gait Assistive Device: FWW Wheelchair Distance: 150'x2 PT [facility] Goals Advertising Account Manager Goals PT Advertising Account Manager Goals Time Frame: Feb 28, 2018 Transfers (B,C,W/C) (FIM): 6 Sit to Lying (QC): 6 Lying-Sitting on Side/Bed(QC): 6 Sit to Stand (QC): 6 Rollin Roll Left to Right (QC): 6 Chair/Nnk-bx-Ddoof Xfer(QC): 6 Car Transfer (QC): 4 Does the Patient Walk: Yes Gait (FIM): 5 Gait distance (FIM): 4=072-01 ft Distance: 50 Walk 10 feet (QC): 6 Walk 10ft-Uneven Surface(QC): 6 Walk 50ft with 2 Turns (QC): 5 Walk 150 ft (QC): 5 Gait Level of Assist: 6 Gait Assistive Device: FWW Stairs (FIM): 3 # of Steps: 5 1 Step (curb) (QC): 5 4 Steps (QC): 4 12 Steps (QC): 88 Picking up an Object (QC): 2 PT Plan Treatment/Plan Treatment Plan: Continue Plan of Care Treatment Plan: Bed Mobility, Concurrent Therapy, Functional Activity Juan José, Functional Strength, Group Therapy, Gait, Safety, Therapeutic Exercise, Transfers Treatment Duration: Feb 28, 2018 Frequency: At least 5 of 7 days/Wk (IRF) Estimated Hrs Per Day: 1.5 hours per day Patient and/or Family Agrees t: Yes Safety Risks/Education Patient Education: Transfer Techniques Time/GCodes Time In: 950 Time Out: 1010 Total Billed Treatment Time: 20 Total Billed Treatment 1,FA20m G Codes Necessary: JOSE Preston PTA Feb 14, 2018 10:18
[2018-02-14 18:07] VITALS: BP 116/73
[2018-02-14] MEDS: ATORVASTATIN 20 MG (LIPITOR) TABLET PO SCH (20:59)
[2018-02-14] MEDS: MIRTAZAPINE 15 MG (REMERON) TAB PO SCH (20:59)
[2018-02-14] MEDS: ERYTHROMYCIN OPHTH OINT 1 GM (SINGLE USE) TUBE OP SCH (21:04)
[2018-02-14] MEDS: LIDOCAINE PATCH REMOVAL TP SCH (21:08)
[2018-02-15] MEDS: HYDROcodone/APAP 5 MG/325 MG (LORTAB) TAB PO PRN (05:39)
[2018-02-15 05:58] VITALS: BP 92/59
[2018-02-15] MEDS: LINAGLIPTIN (TRADJENTA) 5 MG TABLET PO SCH (06:20)
[2018-02-15] MEDS: TORSEMIDE 20 MG (DEMADEX) TAB PO SCH ×2 (06:20→16:35)
[2018-02-15] MEDS: KCL 20 MEQ TAB (K-DUR) PO SCH (06:20)
[2018-02-15] MEDS: GLIMEPIRIDE 2 MG (AMARYL) TAB PO SCH ×2 (06:20→16:35)
[2018-02-15] MEDS: TRIM/SULFAMETH 160/800 (SEPTRA DS) TAB PO SCH ×2 (06:20→16:35)
[2018-02-15] MEDS: GABAPENTIN 400 MG (NEURONTIN) CAP PO SCH ×3 (06:20→20:22)
[2018-02-15] MEDS: PANTOPRAZOLE 20 MG TABLET (PROTONIX) PO SCH (06:20)
[2018-02-15] MEDS: inSUlin (REGULAR) HUMAN 1 UNIT/0.01 ML (CHARGE PER UNIT) SC SCH ×4 (06:21→20:23)
[2018-02-15] MEDS: PHENYTOIN 100 MG (DILANTIN) CAP PO SCH (08:41)
[2018-02-15] MEDS: BACLOFEN 10 MG (LIORESAL) TAB PO SCH ×3 (08:41→20:22)
[2018-02-15] MEDS: SERTRALINE 100 MG (ZOLOFT) TAB PO SCH (08:41)
[2018-02-15] MEDS: ALLOPURINOL 100 MG (ZYLOPRIM) TAB PO SCH (08:42)
[2018-02-15] MEDS: FINASTERIDE (PROSCAR) 5 MG TAB PO SCH (08:42)
[2018-02-15] MEDS: LORATADINE (CLARITIN) 10 MG TAB PO SCH (08:42)
[2018-02-15] MEDS: LIDOCAINE (LIDODERM) 5% PATCH TOP SCH (08:42)
[2018-02-15 08:44] VITALS: BP 101/61
[2018-02-15] MEDS: lisINopril 20 MG (PRINIVIL) TABLET PO SCH (08:45)
[2018-02-15] MEDS: SENNA W/DOCUSATE (SENOKOT S) TABLET PO SCH ×2 (08:45→20:23)
[2018-02-15] MEDS: amLODIPine 2.5MG (NORVASC) TAB PO SCH (08:45)
[2018-02-15] MEDS: DOCUSATE SODIUM 100 MG (COLACE) CAP PO SCH ×2 (08:45→20:23)
[2018-02-15] MEDS: ARTIFICAL TEARS 0.4 ML UNIT DOSE (REFRESH PLUS) OU SCH ×4 (08:47→20:22)
[2018-02-15] MEDS: NEOMY/POLYM/HC (CORTISPORIN) 10 ML BTL OT SCH ×4 (08:47→20:23)
[2018-02-15 11:30] VITALS: BP 104/64
[2018-02-15] MEDS: ATENOLOL 50 MG (TENORMIN) TAB PO SCH (11:44)
[2018-02-15 17:35] VITALS: BP 110/72
[2018-02-15] MEDS: MIRTAZAPINE 15 MG (REMERON) TAB PO SCH (20:21)
[2018-02-15] MEDS: ATORVASTATIN 20 MG (LIPITOR) TABLET PO SCH (20:22)
[2018-02-15] MEDS: ERYTHROMYCIN OPHTH OINT 1 GM (SINGLE USE) TUBE OP SCH (20:23)
[2018-02-15] MEDS: LIDOCAINE PATCH REMOVAL TP SCH (20:24)
[2018-02-16 05:36] VITALS: BP 101/65
[2018-02-16] MEDS: inSUlin (REGULAR) HUMAN 1 UNIT/0.01 ML (CHARGE PER UNIT) SC SCH ×4 (05:38→22:29)
[2018-02-16] MEDS: GLIMEPIRIDE 2 MG (AMARYL) TAB PO SCH ×2 (06:09→16:21)
[2018-02-16] MEDS: LINAGLIPTIN (TRADJENTA) 5 MG TABLET PO SCH (06:09)
[2018-02-16] MEDS: KCL 20 MEQ TAB (K-DUR) PO SCH (06:09)
[2018-02-16] MEDS: PANTOPRAZOLE 20 MG TABLET (PROTONIX) PO SCH (06:09)
[2018-02-16] MEDS: TORSEMIDE 20 MG (DEMADEX) TAB PO SCH ×2 (06:09→16:21)
[2018-02-16] MEDS: TRIM/SULFAMETH 160/800 (SEPTRA DS) TAB PO SCH (06:09)
[2018-02-16] MEDS: GABAPENTIN 400 MG (NEURONTIN) CAP PO SCH ×3 (06:09→21:43)
[2018-02-16 06:35] LABS: ALBUMIN 3.8 GM/DL (3.2-4.5); BILIRUBIN,TOTAL 0.3 MG/DL (0.1-1.0); CALCIUM 9.5 MG/DL (8.5-10.1); CREATININE SERUM 2.51 MG/DL (0.60-1.30); POTASSIUM 5.6 MMOL/L (3.6-5.0); TOTAL PROTEIN 6.9 GM/DL (6.4-8.2)
[2018-02-16 08:17] VITALS: BP 104/57
[2018-02-16] MEDS: BACLOFEN 10 MG (LIORESAL) TAB PO SCH ×3 (08:22→21:43)
[2018-02-16] MEDS: amLODIPine 2.5MG (NORVASC) TAB PO SCH (08:23)
[2018-02-16] MEDS: FINASTERIDE (PROSCAR) 5 MG TAB PO SCH (08:23)
[2018-02-16] MEDS: LORATADINE (CLARITIN) 10 MG TAB PO SCH (08:23)
[2018-02-16] MEDS: ARTIFICAL TEARS 0.4 ML UNIT DOSE (REFRESH PLUS) OU SCH ×4 (08:23→21:43)
[2018-02-16] MEDS: ALLOPURINOL 100 MG (ZYLOPRIM) TAB PO SCH (08:24)
[2018-02-16] MEDS: PHENYTOIN 100 MG (DILANTIN) CAP PO SCH (08:24)
[2018-02-16] MEDS: lisINopril 20 MG (PRINIVIL) TABLET PO SCH (08:24)
[2018-02-16] MEDS: ATENOLOL 50 MG (TENORMIN) TAB PO SCH (08:25)
[2018-02-16] MEDS: SERTRALINE 100 MG (ZOLOFT) TAB PO SCH (08:25)
[2018-02-16] MEDS: NEOMY/POLYM/HC (CORTISPORIN) 10 ML BTL OT SCH ×3 (08:25→17:00)
[2018-02-16] MEDS: DOCUSATE SODIUM 100 MG (COLACE) CAP PO SCH ×2 (08:26→21:44)
[2018-02-16] MEDS: SENNA W/DOCUSATE (SENOKOT S) TABLET PO SCH ×2 (08:27→21:44)
[2018-02-16] MEDS: LIDOCAINE (LIDODERM) 5% PATCH TOP SCH (08:31)
--- NOTE | 2018-02-16 09:51 | Speech Therapy Daily Note ---
Speech Daily Progress Note Subjective Date Seen by Provider: Feb 16, 2018 Time Seen by Provider: 08:30 The patient was seated upright in recliner upon entrance. The patient greeted the clinician and was agreeable to participation in the cognitive treatment session. The patient reports a pain of +4/10 and isolated the pain to the left side of the face. The patient's RN was present who was providing pain medication. Objective Functional Recall: The patient was read paragraphs containing functional information and asked to recall information immediately following. The patient displayed fair accuracy with 23% accuracy following the initial reading and 46% accuracy with the second reading. Moderate clinician cueing was required for improved accuracy rates. Orientation: The patient was independently oriented to self, location, month, day of week, date, and year. Assessment Assessment Current Status: Fair Progress Treatment Plan Continue Plan of Care Communication Comprehension: 4 Expression: 4 Social Cognition Social Interaction: 5 Problem Solvin Memory: 3 Speech Short Term Goals Short Term Goals Short Term Goals 1. The patient will demonstrate hyperfunctional voice exercises with 80% accuracy and mild clinician cueing. 2. The patient will demonstrate and recall three functional memory strategies for use at home, independently. Time Frame-STG: One Week Speech Animal Shelter Supervisor Goals Nursing Home Goals 1. The patient will demonstrated improved expressive communication and cognitive skill for increased function and safety in the least restrictive setting. Time Frame: Three Weeks Comprehension: 5 Expression: 5 Social Interaction: 5 Problem Solvin Memory: 5 Speech-Plan Treatment Plan Speech Therapy Treatment Plan: Continue Plan of Care Continue skilled speech pathology to target memory strategies and functional recall. Treatment Duration: Feb 27, 2018 Frequency: Modified Program (IRF) (Four to five times per week.) Estimated Hrs Per Day: .5 hour per day Rehab Potential: Good Safety Risks/Education Teaching Recipient: Patient Teaching Methods: Discussion Response to Teaching: Verbalize Understanding Education Topics Provided: Functional Recall Strategies Time Speech Therapy Time In: 08:30 Speech Therapy Time Out: 09:00 Total Billed Time: 30 Billed Treatment Time 1FANISHAJI ST Feb 16, 2018 09:50
--- NOTE | 2018-02-16 11:47 | Occupational Ther Daily Note ---
OT Current Status-Daily Note Subjective No pain reported. Appearance Pt. agrees to shower. Mental Status/Objective Patient Orientation: Person, Place Functional [place] Measure 0=Not Assessed/NA 4=Minimal Assistance 1=Total Assistance 5=Supervision or Setup 2=Maximal Assistance 6=Modified [place] 3=Moderate Assistance 7=Complete [place] ADL-Treatment Functional [place] Measure 0=Not Assessed/NA 4=Minimal Assistance 1=Total Assistance 5=Supervision or Setup 2=Maximal Assistance 6=Modified [place] 3=Moderate Assistance 7=Complete IndependenceIRFPAI Quality Coding Scale 6 Independent with activity with or without an assistive device 5 Patient requires set up or clean up by helper. Patient completes activity by themselves 4 Supervision or touching assist (CGA). [place] provide cues , steadying assist 3 The helper provides less than half the effort to complete the activity 2 The helper provides more than half the effort to complete the activity 1 Dependent. The helper does all the effort to complete an activity 7 Patient refused to complete or attempt activity 9 The patient did not perform the activity before the current illness or injury 88 Not attempted due to Medical conditions or safety concerns Bathing (FIM): 4 (Pt. requires min assist for balance while seated on shower chair to bathe all parts.) Shower/Bathe Self (QC): 4 Upper Body (FIM): 5 Upper Body Dressing (QC): 4 Lower Body Dressing (FIM): 3 (Today pt. required mod assist with AE to don LE clothing. Pt. had increased difficulty due to set up of shower. However, had difficulty getting his foot through pant leg on right side. Pt. utilized sock aide for feet.) Lower Body Dressing (QC): 3 On/Off Footwear (QC): 33 Transfers (B, C, W/C) (FIM): 3 (Pt. stood and pivoted toward right side to transfer. Noted that left leg "gave out" when transferring and pt. had to sit quickly.) Shower Transfer(FIM): 1 (Pt. stood with mod assist at bar while OT replaced wheelchair with shower chair.) Education OT Patient Education: Correct positioning, Modified ADL techniques, Progress toward Goal/Update tx plan, Purpose of tx/functional activities, Reviewed precautions, Rehab process, Transfer techniques Teaching Recipient: Patient Teaching Methods: Demonstration Response to Teaching: Verbalize Understanding, Return Demonstration OT Short Term Goals Short Term Goals Time Frame: Feb 14, 2018 Eating(FIM): 6 Grooming(FIM): 6 Bathing(FIM): 5 Upper Body Dressing(FIM): 5 Lower Body Dressing(FIM): 5 Toileting(FIM): 5 Transfers (B,C,W/C) (FIM): 5 Toilet/Commode Transfer(FIM): 5 Shower Transfer(FIM): 4 Additional Short Term Goals: 1-Demonstrate ADL Tasks, 2-Verbalize Understanding , 3-ImproveStrength/Juan José 1=Demonstrate adherence to instructed precautions during ADL tasks. 2=Patient will verbalize/demonstrate understanding of assistive devices/ modifications for ADL. 3=Patient will improve strength/tolerance for activity to enable patient to perform ADL's. OT Telephone Clerks Supervisor Goals Telephone Clerks Supervisor Goals Time Frame: Feb 21, 2018 Eating (FIM): 6 Eating (QC): 6 Groomin Oral Hygiene (QC): 6 Bathing(FIM): 6 Shower/Bathe Self (QC): 6 Upper Body Dressing(FIM): 6 Upper Body Dressing (QC): 6 Lower Body Dressing(FIM): 6 Lower Body Dressing (QC): 6 On/Off Footwear (QC): 6 Toileting(FIM): 6 Toileting Hygiene (QC): 6 Transfers (B,C,W/C) (FIM): 6 Toilet/Commode Transfer(FIM): 6 Toilet/Commode Transfer (QC): 6 Comprehension(FIM): 5 Expression (FIM): 5 Social Interaction(FIM): 5 Problem Solving(FIM): 5 Memory(FIM): 5 1=Demonstrate adherence to instructed precautions during ADL tasks. 2=Patient will verbalize/demonstrate understanding of assistive devices/ modifications for ADL. 3=Patient will improve strength/tolerance for activity to enable patient to perform ADL's. OT Education/Plan Problem List/Assessment Assessment: Decreased Activ Tolerance, Decreased UE Strength, Dependent Transfers, Impaired Bed Mobility, Impaired Coordination, Impaired Funct Balance , Impaired I ADL's, Impaired Self-Care Skills Discharge Recommendations Plan/Recommendations: Continue POC Therapy D/C Recommendations: Assisted Living, Occupational Therapy Home Care, Scheduled Assistance Treatment Plan/Plan of Care Treatment,Training & Education: Yes Patient would benefit from OT for education, treatment and training to promote independence in ADL's, mobility, safety and/or upper extremity function for ADL' s. Plan of Care: ADL Retraining, Functional Mobility, Group Exercise/Act as Ind, UE Funct Exercise/Act Treatment Duration: Feb 21, 2018 Frequency: At least 5 of 7 days/Wk (IRF) Estimated Hrs Per Day: 1.5 hours per day Agreement: Yes Rehab Potential: Good Time/GCodes Start Time: 09:00 Stop Time: 10:00 Total Time Billed (hr/min): 60 Billed Treatment Time 1, ADL x 45minutes, Ex x 15minutes DAGMAR MURGUIA OT Feb 16, 2018 11:46
--- NOTE | 2018-02-16 11:57 | Physical Therapy Daily Note ---
PT Daily Note-Current Subjective Patient in recliner pre tx, agrees to PT, no complaints of pain. Appearance Patient in recliner post tx with nurse call, phone, tray, all needs met. Mental Status Patient Orientation: Normal For Age Transfers Functional [place] Measure 0=Not Assessed/NA 4=Minimal Assistance 1=Total Assistance 5=Supervision or Setup 2=Maximal Assistance 6=Modified [place] 3=Moderate Assistance 7=Complete IndependenceIRFPAI Quality Coding Scale 6 Independent with activity with or without an assistive device 5 Patient requires set up or clean up by helper. Patient completes activity by themselves 4 Supervision or touching assist (CGA). [place] provide cues , steadying assist 3 The helper provides less than half the effort to complete the activity 2 The helper provides more than half the effort to complete the activity 1 Dependent. The helper does all the effort to complete an activity 7 Patient refused to complete or attempt activity 9 The patient did not perform the activity before the current illness or injury 88 Not attempted due to Medical conditions or safety concerns Transfers (B, C, W/C) (FIM): 3 Sit to/from Stand: 3 Bed to/from Chair: 3 Patient needs assist to stand from low surfaces. Patient could do a stand pivot transfer with proper hand placement with CGA but both knees have been buckling and he often needs mod assist to complete the transfer. He reports nursing has been using the sit to stand machine for transfers. Weight Bearing Weight Bearing/Tolerated Weight Bearing/Tolerated Gait Training Gait (FIM): 1 Distance: 40'x2 Gait Level of Assist: 3 Gait Persons Needed: 2 Gait Assistive Device: FWW Left knee immobilizer, now right knee ena during ambulation, needs 2 person assist. Wheelchair Training Does the Pt Use a Wheelchair?: Yes Wheelchair (FIM): 6 Distance: 150'x2 Type of Wheelchair: Manual Exercises Supine Ex: Ankle pumps, Quad Set, Glut sets, Heel Slides, Short Arc Quads, Straight leg raise, Hip abd/add Supine Reps: 20 NuStep Minutes: 15 NuStep Workload: 5 Treatments bed mobility and transfer training, functional strengthening, gait training, wheelchair mobility Assessment Current Status: Poor Progress patient is declining with transfers PT Short Term Goals Short Term Goals Time Frame: Feb 14, 2018 Transfers (B,C,W/C) (FIM): 5 Gait (FIM): 4 Distance (FIM): 3=150 ft Gait Distance Comment: 150ft with FWW Gait Level of Assist: 4 Gait Assistive Device: FWW Wheelchair Distance: 150'x2 PT Detention Goals Solids Control Technician Goals PT Solids Control Technician Goals Time Frame: Feb 28, 2018 Transfers (B,C,W/C) (FIM): 6 Sit to Lying (QC): 6 Lying-Sitting on Side/Bed(QC): 6 Sit to Stand (QC): 6 Rollin Roll Left to Right (QC): 6 Chair/Bhg-cj-Ppovw Xfer(QC): 6 Car Transfer (QC): 4 Does the Patient Walk: Yes Gait (FIM): 5 Gait distance (FIM): 4=792-40 ft Distance: 50 Walk 10 feet (QC): 6 Walk 10ft-Uneven Surface(QC): 6 Walk 50ft with 2 Turns (QC): 5 Walk 150 ft (QC): 5 Gait Level of Assist: 6 Gait Assistive Device: FWW Stairs (FIM): 3 # of Steps: 5 1 Step (curb) (QC): 5 4 Steps (QC): 4 12 Steps (QC): 88 Picking up an Object (QC): 2 PT Plan Problem List Problem List: Activity Tolerance, Functional Strength, Safety, Balance, Gait, Transfer, Bed Mobility, ROM Treatment/Plan Treatment Plan: Continue Plan of Care Treatment Plan: Bed Mobility, Concurrent Therapy, Functional Activity Juan José, Functional Strength, Group Therapy, Gait, Safety, Therapeutic Exercise, Transfers Treatment Duration: Feb 28, 2018 Frequency: At least 5 of 7 days/Wk (IRF) Estimated Hrs Per Day: 1.5 hours per day Patient and/or Family Agrees t: Yes Safety Risks/Education Patient Education: Gait Training, Transfer Techniques, Correct Positioning, W/ C Management, Safety Issues Teaching Recipient: Patient Teaching Methods: Demonstration, Discussion Response to Teaching: Reinforcement Needed Time/GCodes Time In: 1000 Time Out: 1100 Total Billed Treatment Time: 60 Total Billed Treatment 1 visit EX 30' GT 20' FA 10' ALESHIA PETERSEN PT Feb 16, 2018 11:57
--- NOTE | 2018-02-16 14:35 | Therapy Group Daily Note ---
Therapy Daily Group Note Other/Notes Each patient participated in group therapy in the common area of rehab. Each patient ambulated or was transported to the common area of rehab and seated in a [place]. Each patient had to introduce themselves, state where they were born and answer a question that required memory and critical thinking. The group was educated about adaptive equipment for showers, transfers, and dressing. Patients then participated in group lower extremity strengthening exercises. Each patient had to perform a car transfer and Fidel performed it with Jerel. Then each patient performed a matching game that involved memory, upper extremity strength, and manual dexterity. Patients were encouraged to participate and interact with each other to problem solve. Then, each patient ambulated or was transported back to their room and placed in bed or chair with nurse call, phone, and tray. Start Time: 13:00 Stop Time: 14:20 Total Billed Treatment Time: 80 Total Billed Treatment 1 visit GRP 80' ALESHIA PETERSEN PT Feb 16, 2018 14:35
[2018-02-16 17:40] VITALS: BP 108/67
--- NOTE | 2018-02-16 19:27 | Progress Note (SOAP) ---
Subjective Time Seen by Provider: 19:25 Subjective/Events-last exam General most fell today. Patient has renal insufficiency. Strokelike symptoms. Objective Exam Vital Signs Date Time Temp Pulse Resp B/P (MAP) Pulse Ox O2 Delivery O2 Flow Rate FiO2 02/16/18 17:40 97.8 68 20 108/67 (81) 97 Room Air 02/16/18 15:51 NIV CPAP 1.00 02/16/18 08:34 Room Air 02/16/18 08:17 98.3 74 20 104/57 (73) 95 Room Air 02/16/18 05:36 97.9 62 18 101/65 (77) 95 Room Air 02/15/18 20:53 Room Air I & O 02/16/18 07:00 Intake Total 1750 ml Output Total 3150 ml Balance -1400 ml Capillary Refill : General Appearance: No Apparent Distress, WD/WN HEENT: Normal ENT Inspection Neck: Normal Inspection Respiratory: No Accessory Muscle Use, No Respiratory Distress Results Lab Laboratory Tests 02/16/18 05:50 Laboratory Tests 02/15/18 20:19: Glucometer 173H 02/16/18 05:27: Glucometer 138H 02/16/18 05:50: Sodium Level 139, Potassium Level 5.6H, Chloride Level 110H, Carbon Dioxide Level 19L, Anion Gap 10, Blood Urea Nitrogen 81H, Creatinine 2.51#H, Estimat Glomerular Filtration Rate 26, BUN/Creatinine Ratio 32, Glucose Level 135H, Calcium Level 9.5, Total Bilirubin 0.3, Aspartate Amino Transf (AST/SGOT) 24, Alanine Aminotransferase (ALT/SGPT) 29, Alkaline Phosphatase 124, Total Protein 6.9, Albumin 3.8 02/16/18 11:30: Glucometer 181H 02/16/18 16:19: Glucometer 104 Assessment/Plan Assessment/Plan Assess & Plan/Chief Complaint Weakness left side of body. Craniotomy. History of seizures. Hypertension history. Weakness left side of body. Craniotomy. History of seizures. History of hypertension. Renal insufficiency to monitor Clinical Quality Measures DVT/VTE Risk/Contraindication: Risk Factor Score Per Nursin RFS Level Per Nursing on Admit: 4+=Very High DARCY TORRES DO Feb 16, 2018 19:27
[2018-02-16] MEDS: MIRTAZAPINE 15 MG (REMERON) TAB PO SCH (21:42)
[2018-02-16] MEDS: ATORVASTATIN 20 MG (LIPITOR) TABLET PO SCH (21:43)
[2018-02-16] MEDS: ERYTHROMYCIN OPHTH OINT 1 GM (SINGLE USE) TUBE OP SCH (21:43)
[2018-02-16] MEDS: LIDOCAINE PATCH REMOVAL TP SCH (21:47)
[2018-02-17] MEDS: GABAPENTIN 400 MG (NEURONTIN) CAP PO SCH ×3 (06:27→21:03)
[2018-02-17] MEDS: PANTOPRAZOLE 20 MG TABLET (PROTONIX) PO SCH (06:27)
[2018-02-17] MEDS: GLIMEPIRIDE 2 MG (AMARYL) TAB PO SCH ×2 (06:27→17:33)
[2018-02-17] MEDS: LINAGLIPTIN (TRADJENTA) 5 MG TABLET PO SCH (06:28)
[2018-02-17] MEDS: inSUlin (REGULAR) HUMAN 1 UNIT/0.01 ML (CHARGE PER UNIT) SC SCH ×4 (06:51→22:26)
[2018-02-17] MEDS ORDERED: TORSEMIDE 20 MG (DEMADEX) TAB PO SCH (07:00)
[2018-02-17 07:06] VITALS: BP 95/57
[2018-02-17 07:17] LABS: CREATININE SERUM 2.54 MG/DL (0.60-1.30); POTASSIUM 5.2 MMOL/L (3.6-5.0)
--- NOTE | 2018-02-17 08:15 | Progress Note (SOAP) ---
Subjective Time Seen by Provider: 08:15 Subjective/Events-last exam Patient getting around with a lift. Diabetes. GFR 25. Strokelike symptoms. Left side Objective Exam Vital Signs Date Time Temp Pulse Resp B/P (MAP) Pulse Ox O2 Delivery O2 Flow Rate FiO2 02/17/18 07:06 96.6 56 22 95/57 (70) 96 Room Air 02/17/18 06:00 Room Air 02/17/18 06:00 NIV CPAP 2.00 02/16/18 21:00 Room Air 02/16/18 17:40 97.8 68 20 108/67 (81) 97 Room Air 02/16/18 15:51 NIV CPAP 1.00 02/16/18 08:34 Room Air 02/16/18 08:17 98.3 74 20 104/57 (73) 95 Room Air I & O 02/17/18 07:00 Intake Total 1400 ml Output Total 2500 ml Balance -1100 ml Capillary Refill : General Appearance: No Apparent Distress, WD/WN, Obese Neck: Full Range of Motion Respiratory: No Accessory Muscle Use, No Respiratory Distress Results Lab Laboratory Tests 02/16/18 11:30: Glucometer 181H 02/16/18 16:19: Glucometer 104 02/16/18 22:26: Glucometer 159H 02/17/18 06:33: Glucometer 167H 02/17/18 06:34: Sodium Level 139, Potassium Level 5.2H, Chloride Level 108H, Carbon Dioxide Level 17L, Anion Gap 14, Blood Urea Nitrogen 89H, Creatinine 2.54H, Estimat Glomerular Filtration Rate 25, BUN/Creatinine Ratio 35, Glucose Level 167H, Calcium Level 10.0 Assessment/Plan Assessment/Plan Assess & Plan/Chief Complaint Weakness left side of body. Craniotomy. History of seizures. Hypertension history. Weakness left side of body. Craniotomy. History of seizures. History of hypertension. Renal insufficiency to monitor her . 02/17/18. Weakness left side of body. Craniotomy. History of seizures. Hypertension. Renal insufficiency GFR 25 Clinical Quality Measures DVT/VTE Risk/Contraindication: Risk Factor Score Per Nursin RFS Level Per Nursing on Admit: 4+=Very High DARCY TORRES DO Feb 17, 2018 08:15
[2018-02-17 08:45] VITALS: BP 113/62
[2018-02-17] MEDS: lisINopril 10 MG (PRINIVIL) TABLET PO SCH (08:45)
[2018-02-17] MEDS: LORATADINE (CLARITIN) 10 MG TAB PO SCH (08:45)
[2018-02-17] MEDS: PHENYTOIN 100 MG (DILANTIN) CAP PO SCH (08:45)
[2018-02-17] MEDS: ALLOPURINOL 100 MG (ZYLOPRIM) TAB PO SCH (08:45)
[2018-02-17] MEDS: BACLOFEN 10 MG (LIORESAL) TAB PO SCH ×3 (08:45→21:03)
[2018-02-17] MEDS: SERTRALINE 100 MG (ZOLOFT) TAB PO SCH (08:45)
[2018-02-17] MEDS: ATENOLOL 50 MG (TENORMIN) TAB PO SCH (08:45)
[2018-02-17] MEDS: LIDOCAINE (LIDODERM) 5% PATCH TOP SCH (08:45)
[2018-02-17] MEDS: DOCUSATE SODIUM 100 MG (COLACE) CAP PO SCH ×2 (08:46→21:04)
[2018-02-17] MEDS: SENNA W/DOCUSATE (SENOKOT S) TABLET PO SCH ×2 (08:46→21:04)
[2018-02-17] MEDS: HYDROcodone/APAP 5 MG/325 MG (LORTAB) TAB PO PRN (08:46)
[2018-02-17] MEDS: amLODIPine 2.5MG (NORVASC) TAB PO SCH (08:46)
[2018-02-17] MEDS: ARTIFICAL TEARS 0.4 ML UNIT DOSE (REFRESH PLUS) OU SCH ×4 (08:47→21:03)
[2018-02-17] MEDS: FINASTERIDE (PROSCAR) 5 MG TAB PO SCH (09:00)
--- NOTE | 2018-02-17 11:18 | Physical Therapy Daily Note ---
PT Daily Note-Current Subjective Patient in recliner pre tx, agrees to PT, no complaints of pain. Appearance Patient in wheelchair post tx, has nurse call, phone, tray, all needs met. Has OT right after PT. Mental Status Patient Orientation: Person, Place, Situation Transfers Functional [place] Measure 0=Not Assessed/NA 4=Minimal Assistance 1=Total Assistance 5=Supervision or Setup 2=Maximal Assistance 6=Modified [place] 3=Moderate Assistance 7=Complete IndependenceIRFPAI Quality Coding Scale 6 Independent with activity with or without an assistive device 5 Patient requires set up or clean up by helper. Patient completes activity by themselves 4 Supervision or touching assist (CGA). [place] provide cues , steadying assist 3 The helper provides less than half the effort to complete the activity 2 The helper provides more than half the effort to complete the activity 1 Dependent. The helper does all the effort to complete an activity 7 Patient refused to complete or attempt activity 9 The patient did not perform the activity before the current illness or injury 88 Not attempted due to Medical conditions or safety concerns Transfers (B, C, W/C) (FIM): 3 Sit to/from Stand: 3 Bed to/from Chair: 4 Instead of a stand pivot, patient performed a sliding board transfer several times with min assist. Weight Bearing Weight Bearing/Tolerated Weight Bearing/Tolerated Wheelchair Training Does the Pt Use a Wheelchair?: Yes Wheelchair (FIM): 6 Distance: 150'x2 Type of Wheelchair: Manual Exercises Seated Therapy Exercises: Ankle pumps, Hip flexion, Hamstring Curls, Glut set Seated Reps: 20 LAQ alternating for 5 min, standing in parallel bars for 5 min, 10 mini-squats with knees blocked and min assist. Treatments transfers, wheelchair mobility, functional strengthening Assessment Current Status: Poor Progress Patient is very uncoordinated standing. When standing in the parallel bars he needs his knees blocked and close guarding and min assist because he will not only have his knees buckle but his trunk/upper body will suddenly jerk forward or back and he has little control over it and would fall without assist. PT Short Term Goals Short Term Goals Time Frame: Feb 14, 2018 Transfers (B,C,W/C) (FIM): 5 Gait (FIM): 4 Distance (FIM): 3=150 ft Gait Distance Comment: 150ft with FWW Gait Level of Assist: 4 Gait Assistive Device: FWW Wheelchair Distance: 150'x2 PT Assistant Plant Controller Goals Shelter Goals PT Shelter Goals Time Frame: Feb 28, 2018 Transfers (B,C,W/C) (FIM): 6 Sit to Lying (QC): 6 Lying-Sitting on Side/Bed(QC): 6 Sit to Stand (QC): 6 Rollin Roll Left to Right (QC): 6 Chair/Rij-jg-Krrhr Xfer(QC): 6 Car Transfer (QC): 4 Does the Patient Walk: Yes Gait (FIM): 5 Gait distance (FIM): 2=309-07 ft Distance: 50 Walk 10 feet (QC): 6 Walk 10ft-Uneven Surface(QC): 6 Walk 50ft with 2 Turns (QC): 5 Walk 150 ft (QC): 5 Gait Level of Assist: 6 Gait Assistive Device: FWW Stairs (FIM): 3 # of Steps: 5 1 Step (curb) (QC): 5 4 Steps (QC): 4 12 Steps (QC): 88 Picking up an Object (QC): 2 PT Plan Problem List Problem List: Activity Tolerance, Functional Strength, Safety, Balance, Gait, Transfer, Bed Mobility, ROM Treatment/Plan Treatment Plan: Continue Plan of Care Treatment Plan: Bed Mobility, Concurrent Therapy, Functional Activity Juan José, Functional Strength, Group Therapy, Gait, Safety, Therapeutic Exercise, Transfers Treatment Duration: Feb 28, 2018 Frequency: At least 5 of 7 days/Wk (IRF) Estimated Hrs Per Day: 1.5 hours per day Patient and/or Family Agrees t: Yes Safety Risks/Education Patient Education: Transfer Techniques, Correct Positioning, W/C Management, Safety Issues Teaching Recipient: Patient Teaching Methods: Demonstration, Discussion Response to Teaching: Reinforcement Needed Time/GCodes Time In: 1030 Time Out: 1115 Total Billed Treatment Time: 45 Total Billed Treatment 1 visit [facility] 15' FA 10' EX 20' ALESHIA PETERSEN PT Feb 17, 2018 11:18
--- NOTE | 2018-02-17 13:26 | Speech Therapy Daily Note ---
Speech Daily Progress Note Subjective Date Seen by Provider: Feb 17, 2018 Time Seen by Provider: 10:00 The patient was seated upright in recliner upon entrance. The patient greeted the clinician appropriately and was agreeable to participation in the cognitive treatment session. Objective Safety Problem Solving: The patient was provided pictures depicting common safety issues in a home environment. The patient was asked to identify the safety issue and provide an appropriate solution. The patient demonstrated high accuracy with this task, easily identifying the safety concern. Orientation: The patient was oriented to self, location, month, day of week, and year (independently). Assessment Assessment Current Status: Good Progress Treatment Plan Continue Plan of Care Communication Comprehension: 4 Expression: 4 Social Cognition Social Interaction: 5 Problem Solvin Memory: 3 Speech Short Term Goals Short Term Goals Short Term Goals 1. The patient will demonstrate hyperfunctional voice exercises with 80% accuracy and mild clinician cueing. 2. The patient will demonstrate and recall three functional memory strategies for use at home, independently. Time Frame-STG: One Week Speech Chcf Goals Chcf Goals 1. The patient will demonstrated improved expressive communication and cognitive skill for increased function and safety in the least restrictive setting. Time Frame: Three Weeks Comprehension: 5 Expression: 5 Social Interaction: 5 Problem Solvin Memory: 5 Speech-Plan Treatment Plan Speech Therapy Treatment Plan: Continue Plan of Care Continue skilled speech pathology to target functional problem solving and communication. Treatment Duration: Feb 27, 2018 Frequency: Modified Program (IRF) (Four to five times per week.) Estimated Hrs Per Day: .5 hour per day Rehab Potential: Good Safety Risks/Education Teaching Recipient: Patient Teaching Methods: Discussion Response to Teaching: Verbalize Understanding Education Topics Provided: Safety Problem Solving Time Speech Therapy Time In: 10:00 Speech Therapy Time Out: 10:30 Total Billed Time: 30 Billed Treatment Time FANI KoehlerSHAJI ST Feb 17, 2018 13:26
--- NOTE | 2018-02-17 15:06 | Physical Therapy Daily Note ---
PT Daily Note-Current Subjective Patient in wheelchair pre tx, agrees to PT, no complaints of pain. Appearance Patient in recliner post tx with nurse call, phone, tray, all needs met. Mental Status Patient Orientation: Person, Place, Situation Transfers Functional [place] Measure 0=Not Assessed/NA 4=Minimal Assistance 1=Total Assistance 5=Supervision or Setup 2=Maximal Assistance 6=Modified [place] 3=Moderate Assistance 7=Complete IndependenceIRFPAI Quality Coding Scale 6 Independent with activity with or without an assistive device 5 Patient requires set up or clean up by helper. Patient completes activity by themselves 4 Supervision or touching assist (CGA). [place] provide cues , steadying assist 3 The helper provides less than half the effort to complete the activity 2 The helper provides more than half the effort to complete the activity 1 Dependent. The helper does all the effort to complete an activity 7 Patient refused to complete or attempt activity 9 The patient did not perform the activity before the current illness or injury 88 Not attempted due to Medical conditions or safety concerns Transfers (B, C, W/C) (FIM): 3 Bed to/from Chair: 3 Patient performed a stand pivot transfer x4, with mod assist, very unsteady and uncoordinated and had multiple knee buckling Weight Bearing Weight Bearing/Tolerated Weight Bearing/Tolerated Wheelchair Training Does the Pt Use a Wheelchair?: Yes Wheelchair (FIM): 6 Distance: 150'x2 Type of Wheelchair: Manual Exercises NuStep Minutes: 15 NuStep Workload: 5 Treatments transfers, functional strengthening, wheelchair mobility Assessment Current Status: Poor Progress patient declining in transfers PT Short Term Goals Short Term Goals Time Frame: Feb 14, 2018 Transfers (B,C,W/C) (FIM): 5 Gait (FIM): 4 Distance (FIM): 3=150 ft Gait Distance Comment: 150ft with FWW Gait Level of Assist: 4 Gait Assistive Device: FWW Wheelchair Distance: 150'x2 PT Shift Superintendent Goals Mcfp Goals PT Mcfp Goals Time Frame: Feb 28, 2018 Transfers (B,C,W/C) (FIM): 6 Sit to Lying (QC): 6 Lying-Sitting on Side/Bed(QC): 6 Sit to Stand (QC): 6 Rollin Roll Left to Right (QC): 6 Chair/Gvu-qc-Igjst Xfer(QC): 6 Car Transfer (QC): 4 Does the Patient Walk: Yes Gait (FIM): 5 Gait distance (FIM): 4=525-19 ft Distance: 50 Walk 10 feet (QC): 6 Walk 10ft-Uneven Surface(QC): 6 Walk 50ft with 2 Turns (QC): 5 Walk 150 ft (QC): 5 Gait Level of Assist: 6 Gait Assistive Device: FWW Stairs (FIM): 3 # of Steps: 5 1 Step (curb) (QC): 5 4 Steps (QC): 4 12 Steps (QC): 88 Picking up an Object (QC): 2 PT Plan Problem List Problem List: Activity Tolerance, Functional Strength, Safety, Balance, Gait, Transfer, Bed Mobility, ROM Treatment/Plan Treatment Plan: Continue Plan of Care Treatment Plan: Bed Mobility, Concurrent Therapy, Functional Activity Juan José, Functional Strength, Group Therapy, Gait, Safety, Therapeutic Exercise, Transfers Treatment Duration: Feb 28, 2018 Frequency: At least 5 of 7 days/Wk (IRF) Estimated Hrs Per Day: 1.5 hours per day Patient and/or Family Agrees t: Yes Safety Risks/Education Patient Education: Transfer Techniques, Correct Positioning, W/C Management, Safety Issues Teaching Recipient: Patient Teaching Methods: Demonstration, Discussion Response to Teaching: Reinforcement Needed Time/GCodes Time In: 1430 Time Out: 1500 Total Billed Treatment Time: 30 Total Billed Treatment 1 visit EX 15' FA 15' ALESHIA PETERSEN PT Feb 17, 2018 15:06
--- NOTE | 2018-02-17 15:14 | Occupational Ther Daily Note ---
OT Current Status-Daily Note Subjective No pain reported. Appearance Pt. already up in wheelchair and dressed. Nursing had helped him this morning with dressing task. Pt. agreed to work with OT, but declined showering this date. Mental Status/Objective Patient Orientation: Person, Place Functional [place] Measure 0=Not Assessed/NA 4=Minimal Assistance 1=Total Assistance 5=Supervision or Setup 2=Maximal Assistance 6=Modified [place] 3=Moderate Assistance 7=Complete [place] ADL-Treatment Functional [place] Measure 0=Not Assessed/NA 4=Minimal Assistance 1=Total Assistance 5=Supervision or Setup 2=Maximal Assistance 6=Modified [place] 3=Moderate Assistance 7=Complete IndependenceIRFPAI Quality Coding Scale 6 Independent with activity with or without an assistive device 5 Patient requires set up or clean up by helper. Patient completes activity by themselves 4 Supervision or touching assist (CGA). [place] provide cues , steadying assist 3 The helper provides less than half the effort to complete the activity 2 The helper provides more than half the effort to complete the activity 1 Dependent. The helper does all the effort to complete an activity 7 Patient refused to complete or attempt activity 9 The patient did not perform the activity before the current illness or injury 88 Not attempted due to Medical conditions or safety concerns Pt. able to self propel wheelchair to gym area. Talked with pt. in detail regarding concerns for home, and what assistance he will have. Pt. states that social work is working on getting more caregiver hours. OT lets pt know that there is still concern for transfers when caregivers are not present. Pt. states that his daughter will assist him. OT explains that his daughter will help some, but it may not be fair to assume that she will be there all the time , as she has a young family. Pt. states that he has remembered that he wore another brace on the right LE, as well as the left LE, but gave them both away. Pt. also remembers that he had a power wheelchair, and also gave this away. Pt. states that he was weak in this same fashion before, but recovered with therapy, and then did not need the equipment anymore. Pt. states that he is even "getting to the point" where he can't efficiently open packages anymore, and yesterday, spilled his OJ all over his shirt when opening it. Pt. agreed to work on left UE fine motor coordination. Completed bead stringing activity with emphasis to hold string with right and put beads on with left. Pt. did have some trouble with this, but overall, was able to complete. Self propelled wheelchair back to room. All needs met. Education OT Patient Education: Correct positioning, Exercise program, Modified ADL techniques, Progress toward Goal/Update tx plan, Purpose of tx/functional activities, Reviewed precautions, Rehab process, Transfer techniques Teaching Recipient: Patient Teaching Methods: Demonstration, Discussion Response to Teaching: Verbalize Understanding, Return Demonstration OT Short Term Goals Short Term Goals Time Frame: Feb 14, 2018 Eating(FIM): 6 Grooming(FIM): 6 Bathing(FIM): 5 Upper Body Dressing(FIM): 5 Lower Body Dressing(FIM): 5 Toileting(FIM): 5 Transfers (B,C,W/C) (FIM): 5 Toilet/Commode Transfer(FIM): 5 Shower Transfer(FIM): 4 Additional Short Term Goals: 1-Demonstrate ADL Tasks, 2-Verbalize Understanding , 3-ImproveStrength/Juan José 1=Demonstrate adherence to instructed precautions during ADL tasks. 2=Patient will verbalize/demonstrate understanding of assistive devices/ modifications for ADL. 3=Patient will improve strength/tolerance for activity to enable patient to perform ADL's. OT Load Dispatcher Goals [place] Goals Time Frame: Feb 21, 2018 Eating (FIM): 6 Eating (QC): 6 Groomin Oral Hygiene (QC): 6 Bathing(FIM): 6 Shower/Bathe Self (QC): 6 Upper Body Dressing(FIM): 6 Upper Body Dressing (QC): 6 Lower Body Dressing(FIM): 6 Lower Body Dressing (QC): 6 On/Off Footwear (QC): 6 Toileting(FIM): 6 Toileting Hygiene (QC): 6 Transfers (B,C,W/C) (FIM): 6 Toilet/Commode Transfer(FIM): 6 Toilet/Commode Transfer (QC): 6 Comprehension(FIM): 5 Expression (FIM): 5 Social Interaction(FIM): 5 Problem Solving(FIM): 5 Memory(FIM): 5 1=Demonstrate adherence to instructed precautions during ADL tasks. 2=Patient will verbalize/demonstrate understanding of assistive devices/ modifications for ADL. 3=Patient will improve strength/tolerance for activity to enable patient to perform ADL's. OT Education/Plan Problem List/Assessment Assessment: Decreased Activ Tolerance, Decreased UE Strength, Dependent Transfers, Impaired Bed Mobility, Impaired Coordination, Impaired Funct Balance , Impaired I ADL's, Impaired Self-Care Skills, Restricted Funct UE ROM Discharge Recommendations Plan/Recommendations: Continue POC Therapy D/C Recommendations: Home w/ Family Support, Occupational Therapy Home Care Treatment Plan/Plan of Care Treatment,Training & Education: Yes Patient would benefit from OT for education, treatment and training to promote independence in ADL's, mobility, safety and/or upper extremity function for ADL' s. Plan of Care: ADL Retraining, Functional Mobility, Group Exercise/Act as Ind, UE Funct Exercise/Act Treatment Duration: Feb 21, 2018 Frequency: At least 5 of 7 days/Wk (IRF) Estimated Hrs Per Day: 1.5 hours per day Agreement: Yes Rehab Potential: Good Time/GCodes Start Time: 11:25 Stop Time: 12:00 Total Time Billed (hr/min): 35 Billed Treatment Time 1, FA x 2 DAGMAR MURGUIA OT Feb 17, 2018 15:14
--- NOTE | 2018-02-17 15:25 | Occupational Ther Daily Note ---
OT Current Status-Daily Note Subjective No pain reported. Appearance Pt. up in chair. Agrees to treatment. Mental Status/Objective Patient Orientation: Person, Place Functional [place] Measure 0=Not Assessed/NA 4=Minimal Assistance 1=Total Assistance 5=Supervision or Setup 2=Maximal Assistance 6=Modified [place] 3=Moderate Assistance 7=Complete [place] ADL-Treatment Functional [place] Measure 0=Not Assessed/NA 4=Minimal Assistance 1=Total Assistance 5=Supervision or Setup 2=Maximal Assistance 6=Modified [place] 3=Moderate Assistance 7=Complete IndependenceIRFPAI Quality Coding Scale 6 Independent with activity with or without an assistive device 5 Patient requires set up or clean up by helper. Patient completes activity by themselves 4 Supervision or touching assist (CGA). [place] provide cues , steadying assist 3 The helper provides less than half the effort to complete the activity 2 The helper provides more than half the effort to complete the activity 1 Dependent. The helper does all the effort to complete an activity 7 Patient refused to complete or attempt activity 9 The patient did not perform the activity before the current illness or injury 88 Not attempted due to Medical conditions or safety concerns Other Treatment Pt. self propelled to therapy gym. Completed arm bike x 15 minutes, and then arm arc activity to increase UE ROM/strength. Pt. also completed theraputty activity and tolerated this well. Completed with left UE to increase fine motor strength. Pt. self propelled wheelchair back to room. All needs met. Education OT Patient Education: Correct positioning, Exercise program, Modified ADL techniques, Progress toward Goal/Update tx plan, Purpose of tx/functional activities, Reviewed precautions, Rehab process Teaching Recipient: Patient Teaching Methods: Demonstration Response to Teaching: Verbalize Understanding, Return Demonstration OT Short Term Goals Short Term Goals Time Frame: Feb 14, 2018 Eating(FIM): 6 Grooming(FIM): 6 Bathing(FIM): 5 Upper Body Dressing(FIM): 5 Lower Body Dressing(FIM): 5 Toileting(FIM): 5 Transfers (B,C,W/C) (FIM): 5 Toilet/Commode Transfer(FIM): 5 Shower Transfer(FIM): 4 Additional Short Term Goals: 1-Demonstrate ADL Tasks, 2-Verbalize Understanding , 3-ImproveStrength/Juan José 1=Demonstrate adherence to instructed precautions during ADL tasks. 2=Patient will verbalize/demonstrate understanding of assistive devices/ modifications for ADL. 3=Patient will improve strength/tolerance for activity to enable patient to perform ADL's. OT Custodial Goals Marine Painter Goals Time Frame: Feb 21, 2018 Eating (FIM): 6 Eating (QC): 6 Groomin Oral Hygiene (QC): 6 Bathing(FIM): 6 Shower/Bathe Self (QC): 6 Upper Body Dressing(FIM): 6 Upper Body Dressing (QC): 6 Lower Body Dressing(FIM): 6 Lower Body Dressing (QC): 6 On/Off Footwear (QC): 6 Toileting(FIM): 6 Toileting Hygiene (QC): 6 Transfers (B,C,W/C) (FIM): 6 Toilet/Commode Transfer(FIM): 6 Toilet/Commode Transfer (QC): 6 Comprehension(FIM): 5 Expression (FIM): 5 Social Interaction(FIM): 5 Problem Solving(FIM): 5 Memory(FIM): 5 1=Demonstrate adherence to instructed precautions during ADL tasks. 2=Patient will verbalize/demonstrate understanding of assistive devices/ modifications for ADL. 3=Patient will improve strength/tolerance for activity to enable patient to perform ADL's. OT Education/Plan Problem List/Assessment Assessment: Decreased Activ Tolerance, Decreased UE Strength, Dependent Transfers, Impaired Bed Mobility, Impaired Coordination, Impaired Funct Balance , Impaired I ADL's, Impaired Self-Care Skills Discharge Recommendations Plan/Recommendations: Continue POC Therapy D/C Recommendations: 24 hr Supervision Treatment Plan/Plan of Care Treatment,Training & Education: Yes Patient would benefit from OT for education, treatment and training to promote independence in ADL's, mobility, safety and/or upper extremity function for ADL' s. Plan of Care: ADL Retraining, Functional Mobility, Group Exercise/Act as Ind, UE Funct Exercise/Act Treatment Duration: Feb 21, 2018 Frequency: At least 5 of 7 days/Wk (IRF) Estimated Hrs Per Day: 1.5 hours per day Agreement: Yes Rehab Potential: Good Time/GCodes Start Time: 13:30 Stop Time: 14:10 Total Time Billed (hr/min): 40 Billed Treatment Time 1, EX x 30minutes, FA x 10minutes DAGMAR MURGUIA OT Feb 17, 2018 15:25
[2018-02-17] MEDS: TORSEMIDE 20 MG (DEMADEX) TAB PO SCH (17:33)
[2018-02-17 18:10] VITALS: BP 108/63
--- NOTE | 2018-02-17 19:41 | PM & R (SOAP) Progress Note ---
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 Objective Exam Last Set of Vital Signs Vital Signs Date Time Temp Pulse Resp B/P (MAP) Pulse Ox O2 Delivery O2 Flow Rate FiO2 02/17/18 18:10 97.2 61 16 108/63 (78) 97 Room Air 02/17/18 06:00 2.00 Capillary Refill : I&O Intake and Output 02/17/18 00:00 Intake Total 1800 ml Output Total 3350 ml Balance -1550 ml Intake Oral 1800 ml Output Urine Total 3350 ml # Bowel Movements 2 General: Alert, Oriented X3, Cooperative, No Acute Distress HEENT: Other (mild periorbital swelling) Neck: Supple, No JVD Lungs: Clear to Auscultation Heart: Regular Rate Abdomen: Normal Bowel Sounds Extremities: No Edema Neuro: Other (left HP mild cognitive deficict) Results Lab Laboratory Tests 02/14/18 20:59: Glucometer 270H 02/15/18 05:35: Glucometer 173H 02/15/18 11:17: Glucometer 156H 02/15/18 16:35: Glucometer 199H 02/15/18 20:19: Glucometer 173H 02/16/18 05:27: Glucometer 138H 02/16/18 05:50: Sodium Level 139, Potassium Level 5.6H, Chloride Level 110H, Carbon Dioxide Level 19L, Anion Gap 10, Blood Urea Nitrogen 81H, Creatinine 2.51#H, Estimat Glomerular Filtration Rate 26, BUN/Creatinine Ratio 32, Glucose Level 135H, Calcium Level 9.5, Total Bilirubin 0.3, Aspartate Amino Transf (AST/SGOT) 24, Alanine Aminotransferase (ALT/SGPT) 29, Alkaline Phosphatase 124, Total Protein 6.9, Albumin 3.8 02/16/18 11:30: Glucometer 181H 02/16/18 16:19: Glucometer 104 02/16/18 22:26: Glucometer 159H 02/17/18 06:33: Glucometer 167H 02/17/18 06:34: Sodium Level 139, Potassium Level 5.2H, Chloride Level 108H, Carbon Dioxide Level 17L, Anion Gap 14, Blood Urea Nitrogen 89H, Creatinine 2.54H, Estimat Glomerular Filtration Rate 25, BUN/Creatinine Ratio 35, Glucose Level 167H, Calcium Level 10.0 02/17/18 11:32: Glucometer 237H 02/17/18 16:09: Glucometer 224H Assessment/Plan Assessment Left HP associated with action tremors Mild cognitive deficit 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
[2018-02-17] MEDS: ATORVASTATIN 20 MG (LIPITOR) TABLET PO SCH (21:03)
[2018-02-17] MEDS: MIRTAZAPINE 15 MG (REMERON) TAB PO SCH (21:03)
[2018-02-17] MEDS: LIDOCAINE PATCH REMOVAL TP SCH (21:04)
[2018-02-17] MEDS: ERYTHROMYCIN OPHTH OINT 1 GM (SINGLE USE) TUBE OP SCH ×2 (21:07→22:26)
[2018-02-18 06:02] VITALS: BP 94/54
[2018-02-18] MEDS: PANTOPRAZOLE 20 MG TABLET (PROTONIX) PO SCH (06:50)
[2018-02-18] MEDS: GLIMEPIRIDE 2 MG (AMARYL) TAB PO SCH ×2 (06:50→18:33)
[2018-02-18] MEDS: LINAGLIPTIN (TRADJENTA) 5 MG TABLET PO SCH (06:50)
[2018-02-18] MEDS: TORSEMIDE 20 MG (DEMADEX) TAB PO SCH ×2 (06:50→17:00)
[2018-02-18] MEDS: GABAPENTIN 400 MG (NEURONTIN) CAP PO SCH ×3 (06:51→21:34)
[2018-02-18] MEDS: inSUlin (REGULAR) HUMAN 1 UNIT/0.01 ML (CHARGE PER UNIT) SC SCH ×4 (06:55→21:35)
[2018-02-18 07:06] LABS: CALCIUM 9.9 MG/DL (8.5-10.1); CREATININE SERUM 2.18 MG/DL (0.60-1.30); POTASSIUM 5.2 MMOL/L (3.6-5.0)
--- NOTE | 2018-02-18 08:41 | Progress Note (SOAP) ---
Subjective Time Seen by Provider: 08:40 Subjective/Events-last exam Patient swallowing better. Kidney function improving. Strokelike symptoms. Diabetes Objective Exam Vital Signs Date Time Temp Pulse Resp B/P (MAP) Pulse Ox O2 Delivery O2 Flow Rate FiO2 02/18/18 06:55 Nasal Cannula 2.00 02/18/18 06:02 96.5 56 22 94/54 (67) 97 Room Air 02/18/18 01:57 NIV CPAP 2.00 02/17/18 20:40 Room Air 02/17/18 18:10 97.2 61 16 108/63 (78) 97 Room Air 02/17/18 09:00 Room Air 02/17/18 08:45 67 113/62 (79) I & O 02/18/18 07:00 Intake Total 1280 ml Output Total 2525 ml Balance -1245 ml Capillary Refill : General Appearance: No Apparent Distress, WD/WN Results Lab Laboratory Tests 02/17/18 11:32: Glucometer 237H 02/17/18 16:09: Glucometer 224H 02/17/18 20:51: Glucometer 226H 02/18/18 06:12: Glucometer 184H 02/18/18 06:23: Sodium Level 139, Potassium Level 5.2H, Chloride Level 110H, Carbon Dioxide Level 19L, Anion Gap 10, Blood Urea Nitrogen 85H, Creatinine 2.18H, Estimat Glomerular Filtration Rate 30, BUN/Creatinine Ratio 39, Glucose Level 193H, Calcium Level 9.9 Assessment/Plan Assessment/Plan Assess & Plan/Chief Complaint Weakness left side of body. Craniotomy. History of seizures. Hypertension history. Weakness left side of body. Craniotomy. History of seizures. History of hypertension. Renal insufficiency to monitor her . 02/17/18. Weakness left side of body. Craniotomy. History of seizures. Hypertension. Renal insufficiency GFR 25. . 02/18/18. Weakness left side of body. Craniotomy. History of seizure. Hypertension. Renal insufficiency GFR 30 today` Patient swallowing better Clinical Quality Measures DVT/VTE Risk/Contraindication: Risk Factor Score Per Nursin RFS Level Per Nursing on Admit: 4+=Very High DARCY TORRES DO Feb 18, 2018 08:41
--- NOTE | 2018-02-18 08:58 | Speech Therapy Daily Note ---
Speech Daily Progress Note Subjective Date Seen by Provider: Feb 18, 2018 Time Seen by Provider: 08:15 The patient was seated in recliner upon entrance. The patient greeted the clinician appropriately and was agreeable to participation in the cognitive treatment session. Objective Functional Memory Task: The patient was read short paragraphs (three to four sentences) containing functional information for recall (three to four elements) . Following the reading, the patient was asked questions pertaining to the paragraph. The patient displayed 90% accuracy with mild clinician cueing. Orientation: The patient is 100% oriented to month, date, year, and location ( independently). Assessment Assessment Current Status: Good Progress Treatment Plan Continue Plan of Care Communication Comprehension: 4 Expression: 4 Social Cognition Social Interaction: 5 Problem Solvin Memory: 3 Speech Short Term Goals Short Term Goals Short Term Goals 1. The patient will demonstrate hyperfunctional voice exercises with 80% accuracy and mild clinician cueing. 2. The patient will demonstrate and recall three functional memory strategies for use at home, independently. Time Frame-STG: One Week Speech Shelter Goals Shelter Goals 1. The patient will demonstrated improved expressive communication and cognitive skill for increased function and safety in the least restrictive setting. Time Frame: Three Weeks Comprehension: 5 Expression: 5 Social Interaction: 5 Problem Solvin Memory: 5 Speech-Plan Treatment Plan Speech Therapy Treatment Plan: Continue Plan of Care Continue skilled speech pathology to target functional problem solving. Treatment Duration: Feb 27, 2018 Frequency: Modified Program (IRF) (Four to five times per week.) Estimated Hrs Per Day: .5 hour per day Rehab Potential: Good Safety Risks/Education Teaching Recipient: Patient Teaching Methods: Discussion Response to Teaching: Verbalize Understanding, Return Demonstration Education Topics Provided: Functional Memory Strategies Time Speech Therapy Time In: 08:15 Speech Therapy Time Out: 08:45 Total Billed Time: 30 Billed Treatment Time 1FANI ELIZABETH Feb 18, 2018 08:58
[2018-02-18] MEDS: ATENOLOL 50 MG (TENORMIN) TAB PO SCH (09:51)
[2018-02-18] MEDS: FINASTERIDE (PROSCAR) 5 MG TAB PO SCH (09:51)
[2018-02-18] MEDS: PHENYTOIN 100 MG (DILANTIN) CAP PO SCH (09:51)
[2018-02-18] MEDS: SENNA W/DOCUSATE (SENOKOT S) TABLET PO SCH ×2 (09:52→21:35)
[2018-02-18] MEDS: amLODIPine 2.5MG (NORVASC) TAB PO SCH (09:52)
[2018-02-18] MEDS: DOCUSATE SODIUM 100 MG (COLACE) CAP PO SCH ×2 (09:52→21:35)
[2018-02-18] MEDS: BACLOFEN 10 MG (LIORESAL) TAB PO SCH ×3 (09:52→21:34)
[2018-02-18] MEDS: lisINopril 10 MG (PRINIVIL) TABLET PO SCH (09:52)
[2018-02-18] MEDS: LIDOCAINE (LIDODERM) 5% PATCH TOP SCH (09:53)
[2018-02-18] MEDS: SERTRALINE 100 MG (ZOLOFT) TAB PO SCH (09:53)
[2018-02-18] MEDS: LORATADINE (CLARITIN) 10 MG TAB PO SCH (09:53)
[2018-02-18] MEDS: ENOXAPARIN 40 MG/0.4 ML (LOVENOX) SYR SC SCH (09:53)
[2018-02-18] MEDS: ALLOPURINOL 100 MG (ZYLOPRIM) TAB PO SCH (09:53)
--- NOTE | 2018-02-18 09:59 | Physical Therapy Daily Note ---
PT Daily Note-Current Subjective Patient in recliner pre tx, agrees to PT, no complaints of pain. Appearance Patient in wheelchair at bedside post tx, has OT right after PT, has nurse call , phone, tray, all needs met. Mental Status Patient Orientation: Person, Place, Situation Transfers Functional [place] Measure 0=Not Assessed/NA 4=Minimal Assistance 1=Total Assistance 5=Supervision or Setup 2=Maximal Assistance 6=Modified [place] 3=Moderate Assistance 7=Complete IndependenceIRFPAI Quality Coding Scale 6 Independent with activity with or without an assistive device 5 Patient requires set up or clean up by helper. Patient completes activity by themselves 4 Supervision or touching assist (CGA). [place] provide cues , steadying assist 3 The helper provides less than half the effort to complete the activity 2 The helper provides more than half the effort to complete the activity 1 Dependent. The helper does all the effort to complete an activity 7 Patient refused to complete or attempt activity 9 The patient did not perform the activity before the current illness or injury 88 Not attempted due to Medical conditions or safety concerns Transfers (B, C, W/C) (FIM): 3 Sit to/from Stand: 3 Bed to/from Chair: 3 Patient performed a stand pivot transfer to the wheelchair with mod assist but after that he performed 2 sliding board transfers with min assist. Weight Bearing Weight Bearing/Tolerated Weight Bearing/Tolerated Wheelchair Training Does the Pt Use a Wheelchair?: Yes Wheelchair (FIM): 6 Distance: 150'x2 Type of Wheelchair: Manual Exercises Seated Therapy Exercises: Ankle pumps, Hip flexion, Hip abd/add Seated Reps: 20 Standing: Heel/toe raises Standing Reps: 10 LAQ alternating for 5 min, standing in parallel bars mini-squats x10 with therapist assist to limit knee flexion and assist with standing balance, he also stood in the parallel bars for about 10 min with therapist assist for balance even when patient using parallel bars with both arms NuStep Minutes: 15 NuStep Workload: 5 Treatments functional strengthening, transfers, wheelchair mobility Assessment Current Status: Poor Progress no change in mobility, patient has declined with transfers and ambulation since he arrived PT Short Term Goals Short Term Goals Time Frame: Feb 14, 2018 Transfers (B,C,W/C) (FIM): 5 Gait (FIM): 4 Distance (FIM): 3=150 ft Gait Distance Comment: 150ft with FWW Gait Level of Assist: 4 Gait Assistive Device: FWW Wheelchair Distance: 150'x2 PT Mcc Goals Drafter Marine Goals PT Drafter Marine Goals Time Frame: Feb 28, 2018 Transfers (B,C,W/C) (FIM): 6 Sit to Lying (QC): 6 Lying-Sitting on Side/Bed(QC): 6 Sit to Stand (QC): 6 Rollin Roll Left to Right (QC): 6 Chair/Tpp-ia-Hfuwd Xfer(QC): 6 Car Transfer (QC): 4 Does the Patient Walk: Yes Gait (FIM): 5 Gait distance (FIM): 4=083-16 ft Distance: 50 Walk 10 feet (QC): 6 Walk 10ft-Uneven Surface(QC): 6 Walk 50ft with 2 Turns (QC): 5 Walk 150 ft (QC): 5 Gait Level of Assist: 6 Gait Assistive Device: FWW Stairs (FIM): 3 # of Steps: 5 1 Step (curb) (QC): 5 4 Steps (QC): 4 12 Steps (QC): 88 Picking up an Object (QC): 2 PT Plan Problem List Problem List: Activity Tolerance, Functional Strength, Safety, Balance, Gait, Transfer, Bed Mobility, ROM Treatment/Plan Treatment Plan: Continue Plan of Care Treatment Plan: Bed Mobility, Concurrent Therapy, Functional Activity Juan José, Functional Strength, Group Therapy, Gait, Safety, Therapeutic Exercise, Transfers Treatment Duration: Feb 28, 2018 Frequency: At least 5 of 7 days/Wk (IRF) Estimated Hrs Per Day: 1.5 hours per day Patient and/or Family Agrees t: Yes Safety Risks/Education Patient Education: Transfer Techniques, Correct Positioning, W/C Management, Safety Issues Teaching Recipient: Patient Teaching Methods: Demonstration, Discussion Response to Teaching: Reinforcement Needed Time/GCodes Time In: 900 Time Out: 1000 Total Billed Treatment Time: 60 Total Billed Treatment 1 visit [facility] 10' FA 15' EX 35' ALESHIA PETERSEN PT Feb 18, 2018 09:59
[2018-02-18] MEDS: ARTIFICAL TEARS 0.4 ML UNIT DOSE (REFRESH PLUS) OU SCH ×4 (10:07→21:34)
[2018-02-18] MEDS: TRIAMCINOLONE 0.1% CR (KENALOG) 15 GM TUBE TOP SCH ×2 (12:07→21:36)
--- NOTE | 2018-02-18 14:58 | Therapy Group Daily Note ---
Therapy Daily Group Note Patient Education Topic Energy Cons Exercises LE Seated Exercise, UE Exercise Other/Notes Pt. participated in group PT OT session. Pt came to from via w/c, SBA . Pt. was social and seemed to enjoy sharing and conversing with others. Pts introduced selves and each completed the phrase " remember when.......?" Pts. lead exercise group using written illustrated card guides which they read from and demonstrated etc. Energy conservation and work simplification was topic of education with equipment and tasks demonstrated. Pt. to room after group with mod to max assist to bed. cook at hand. Start Time: 13:00 Stop Time: 14:20 Total Billed Treatment Time: 80 Total Billed Treatment 1,GRP JOSE DAY GEODUCK DIVER Feb 18, 2018 14:58
--- NOTE | 2018-02-18 15:24 | PM & R (SOAP) Progress Note ---
Subjective Time Seen by Provider: 08:40 Subjective/Events-last exam Patient was seen in his room this AM Patient still with some left sided weakness with a decline in fuctional mobility since this most recent illness Metformin on hold due to elevated Creatinine and patient on SS insulin regimen Patient mod assist for transfers It would be difficult for patient to return home even with increased Skil worker time at this point-Will recheck CT head Review of Systems Neurological: Weakness Objective Exam Last Set of Vital Signs Vital Signs Date Time Temp Pulse Resp B/P (MAP) Pulse Ox O2 Delivery O2 Flow Rate FiO2 02/18/18 06:55 Nasal Cannula 2.00 02/18/18 06:02 96.5 56 22 94/54 (67) 97 Capillary Refill : I&O Intake and Output 02/18/18 00:00 Intake Total 1130 ml Output Total 1600 ml Balance -470 ml Intake Oral 1130 ml Output Urine Total 1600 ml # Bowel Movements 2 General: Alert, Oriented X3, Cooperative, No Acute Distress HEENT: Other (mild periorbital swelling) Neck: Supple, No JVD Lungs: Clear to Auscultation Heart: Regular Rate Abdomen: Normal Bowel Sounds Extremities: No Edema Neuro: Other (left HP mild cognitive deficict) Results Lab Laboratory Tests 02/15/18 16:35: Glucometer 199H 02/15/18 20:19: Glucometer 173H 02/16/18 05:27: Glucometer 138H 02/16/18 05:50: Sodium Level 139, Potassium Level 5.6H, Chloride Level 110H, Carbon Dioxide Level 19L, Anion Gap 10, Blood Urea Nitrogen 81H, Creatinine 2.51#H, Estimat Glomerular Filtration Rate 26, BUN/Creatinine Ratio 32, Glucose Level 135H, Calcium Level 9.5, Total Bilirubin 0.3, Aspartate Amino Transf (AST/SGOT) 24, Alanine Aminotransferase (ALT/SGPT) 29, Alkaline Phosphatase 124, Total Protein 6.9, Albumin 3.8 02/16/18 11:30: Glucometer 181H 02/16/18 16:19: Glucometer 104 02/16/18 22:26: Glucometer 159H 02/17/18 06:33: Glucometer 167H 02/17/18 06:34: Sodium Level 139, Potassium Level 5.2H, Chloride Level 108H, Carbon Dioxide Level 17L, Anion Gap 14, Blood Urea Nitrogen 89H, Creatinine 2.54H, Estimat Glomerular Filtration Rate 25, BUN/Creatinine Ratio 35, Glucose Level 167H, Calcium Level 10.0 02/17/18 11:32: Glucometer 237H 02/17/18 16:09: Glucometer 224H 02/17/18 20:51: Glucometer 226H 02/18/18 06:12: Glucometer 184H 02/18/18 06:23: Sodium Level 139, Potassium Level 5.2H, Chloride Level 110H, Carbon Dioxide Level 19L, Anion Gap 10, Blood Urea Nitrogen 85H, Creatinine 2.18H, Estimat Glomerular Filtration Rate 30, BUN/Creatinine Ratio 39, Glucose Level 193H, Calcium Level 9.9 02/18/18 11:37: Glucometer 219H Assessment/Plan Assessment Left HP associated with action tremors Mild cognitive deficit 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 Team Conference held earlier today-see report for full functional update and POC and VALERIE FRANCES MD Feb 18, 2018 15:24
--- NOTE | 2018-02-18 15:35 | Occupational Ther Daily Note ---
OT Current Status-Daily Note Subjective No pain reported. Appearance Pt. up in chair. Agrees to shower. Mental Status/Objective Patient Orientation: Person, Place Functional [place] Measure 0=Not Assessed/NA 4=Minimal Assistance 1=Total Assistance 5=Supervision or Setup 2=Maximal Assistance 6=Modified [place] 3=Moderate Assistance 7=Complete [place] ADL-Treatment Functional [place] Measure 0=Not Assessed/NA 4=Minimal Assistance 1=Total Assistance 5=Supervision or Setup 2=Maximal Assistance 6=Modified [place] 3=Moderate Assistance 7=Complete IndependenceIRFPAI Quality Coding Scale 6 Independent with activity with or without an assistive device 5 Patient requires set up or clean up by helper. Patient completes activity by themselves 4 Supervision or touching assist (CGA). [place] provide cues , steadying assist 3 The helper provides less than half the effort to complete the activity 2 The helper provides more than half the effort to complete the activity 1 Dependent. The helper does all the effort to complete an activity 7 Patient refused to complete or attempt activity 9 The patient did not perform the activity before the current illness or injury 88 Not attempted due to Medical conditions or safety concerns Bathing (FIM): 3 (Pt. requires assist in stance for balance and assist to wash rear ahsan area.) Shower/Bathe Self (QC): 3 Upper Body (FIM): 5 Upper Body Dressing (QC): 4 Lower Body Dressing (FIM): 3 (Overall, pt. required mod assist to don socks and pants.) Lower Body Dressing (QC): 3 On/Off Footwear (QC): 4 Transfers (B, C, W/C) (FIM): 2 (Max assist to transfer sit-stand while holding onto grab bars in shower.) Pt. demonstrates instability in stance with bilateral LE. Both LE are weak and pt. has difficulty maintaining stance. Pt. demonstrates poor awareness at times. After shower, pt. self propelled w/c to therapy gym. Tolerated 10 minutes on armbike with bilateral UE to increase overall strength and endurance. After this task, pt. self propelled back to room. All needs met. Education OT Patient Education: Correct positioning, Exercise program, Modified ADL techniques, Progress toward Goal/Update tx plan, Purpose of tx/functional activities, Reviewed precautions, Rehab process, Transfer techniques Teaching Recipient: Patient Teaching Methods: Demonstration, Discussion Response to Teaching: Verbalize Understanding, Return Demonstration OT Short Term Goals Short Term Goals Time Frame: Feb 14, 2018 Eating(FIM): 6 Grooming(FIM): 6 Bathing(FIM): 5 Upper Body Dressing(FIM): 5 Lower Body Dressing(FIM): 5 Toileting(FIM): 5 Transfers (B,C,W/C) (FIM): 5 Toilet/Commode Transfer(FIM): 5 Shower Transfer(FIM): 4 Additional Short Term Goals: 1-Demonstrate ADL Tasks, 2-Verbalize Understanding , 3-ImproveStrength/Juan José 1=Demonstrate adherence to instructed precautions during ADL tasks. 2=Patient will verbalize/demonstrate understanding of assistive devices/ modifications for ADL. 3=Patient will improve strength/tolerance for activity to enable patient to perform ADL's. OT Track Production Engineer Goals Group Home Goals Time Frame: Feb 21, 2018 Eating (FIM): 6 Eating (QC): 6 Groomin Oral Hygiene (QC): 6 Bathing(FIM): 6 Shower/Bathe Self (QC): 6 Upper Body Dressing(FIM): 6 Upper Body Dressing (QC): 6 Lower Body Dressing(FIM): 6 Lower Body Dressing (QC): 6 On/Off Footwear (QC): 6 Toileting(FIM): 6 Toileting Hygiene (QC): 6 Transfers (B,C,W/C) (FIM): 6 Toilet/Commode Transfer(FIM): 6 Toilet/Commode Transfer (QC): 6 Comprehension(FIM): 5 Expression (FIM): 5 Social Interaction(FIM): 5 Problem Solving(FIM): 5 Memory(FIM): 5 1=Demonstrate adherence to instructed precautions during ADL tasks. 2=Patient will verbalize/demonstrate understanding of assistive devices/ modifications for ADL. 3=Patient will improve strength/tolerance for activity to enable patient to perform ADL's. OT Education/Plan Problem List/Assessment Assessment: Decreased Activ Tolerance, Dependent Transfers, Impaired Bed Mobility, Impaired Coordination, Impaired Funct Balance, Impaired I ADL's, Impaired Self-Care Skills, Restricted Funct UE ROM Discharge Recommendations Plan/Recommendations: Continue POC Therapy D/C Recommendations: 24 hr Supervision Treatment Plan/Plan of Care Treatment,Training & Education: Yes Patient would benefit from OT for education, treatment and training to promote independence in ADL's, mobility, safety and/or upper extremity function for ADL' s. Plan of Care: ADL Retraining, Functional Mobility, Group Exercise/Act as Ind, UE Funct Exercise/Act Treatment Duration: Feb 21, 2018 Frequency: At least 5 of 7 days/Wk (IRF) Estimated Hrs Per Day: 1.5 hours per day Agreement: Yes Rehab Potential: Fair Time/GCodes Start Time: 10:10 Stop Time: 11:05 Total Time Billed (hr/min): 55 Billed Treatment Time 1, ADL x 45minutes, Ex x 10minutes DAGMAR MURGUIA OT Feb 18, 2018 15:35
--- NOTE | 2018-02-18 16:31 | Diagnostic Imaging Report ---
CLINICAL INDICATION: Patient with slurred speech and left facial swelling. EXAM: Axial CT scan of the brain performed without IV contrast. COMPARISON: Head CT without IV contrast dated 02/12/2010. FINDINGS: Again seen prominent extra-axial CSF space which is minimally progressed compared to the prior study. There is also progression of brain parenchymal volume loss compared to the prior study. There is no evidence of intracranial hemorrhage, acute cerebral infarct, or brain herniation. There is interval left temporal craniectomy with artificial flap placed. There is suspected parenchymal resection of the anterior aspect of the left temporal lobe with encephalomalacia. There are some focal areas of low-attenuation white matter changes of both cerebral hemispheres, likely representing chronic small vessel ischemic disease. Again seen dense ossification of the falx cerebri. There is note of mild right to left shift of the septum pellucidum compared to the prior study of unknown etiology. There is mild increased fatty change in the left suprazygomatic temporal region which may be from postop changes. Besides the postop changes, the extracranial soft tissue, skull, and orbits are unremarkable. Paranasal sinuses are clear. There is mucosal thickening of the nasal turbinates. There is consolidation of the left mastoid air cells with interval wall down left mastoidectomy. IMPRESSION: 1: There is no CT evidence of acute intracranial process. If there is continued concern for acute cerebral infarct, then MRI of the brain would better evaluate. 2: There is mild increased fatty change in the left suprazygomatic temporal region which may be from postop changes. 3: There is progression of brain parenchymal volume loss and mild chronic small vessel ischemic changes. 4: Interval postop changes with left temporal lobectomy. 5: There is consolidation of the left mastoid air cells and wall down left mastoidectomy changes. Dictated by: Dictated on workstation # [id number]
[2018-02-18 18:00] VITALS: BP 108/67
[2018-02-18] MEDS: HYDROcodone/APAP 5 MG/325 MG (LORTAB) TAB PO PRN (18:33)
[2018-02-18] MEDS: ERYTHROMYCIN OPHTH OINT 1 GM (SINGLE USE) TUBE OP SCH (18:36)
[2018-02-18] MEDS: ATORVASTATIN 20 MG (LIPITOR) TABLET PO SCH (21:34)
[2018-02-18] MEDS: MIRTAZAPINE 15 MG (REMERON) TAB PO SCH (21:34)
[2018-02-18] MEDS: LIDOCAINE PATCH REMOVAL TP SCH (21:35)
[2018-02-19 05:46] VITALS: BP 77/37
[2018-02-19] MEDS: inSUlin (REGULAR) HUMAN 1 UNIT/0.01 ML (CHARGE PER UNIT) SC SCH ×4 (06:27→20:27)
[2018-02-19] MEDS: PANTOPRAZOLE 20 MG TABLET (PROTONIX) PO SCH (06:27)
[2018-02-19] MEDS: GABAPENTIN 400 MG (NEURONTIN) CAP PO SCH ×3 (06:27→20:26)
[2018-02-19] MEDS: LINAGLIPTIN (TRADJENTA) 5 MG TABLET PO SCH (06:27)
[2018-02-19] MEDS: GLIMEPIRIDE 2 MG (AMARYL) TAB PO SCH ×2 (06:27→17:41)
[2018-02-19] MEDS: TORSEMIDE 20 MG (DEMADEX) TAB PO SCH ×2 (06:27→08:08)
[2018-02-19 07:14] LABS: CALCIUM 10.1 MG/DL (8.5-10.1); CREATININE SERUM 1.61 MG/DL (0.60-1.30); POTASSIUM 4.8 MMOL/L (3.6-5.0)
[2018-02-19] MEDS: PHENYTOIN 100 MG (DILANTIN) CAP PO SCH (08:07)
[2018-02-19] MEDS: lisINopril 10 MG (PRINIVIL) TABLET PO SCH (08:07)
[2018-02-19] MEDS: BACLOFEN 10 MG (LIORESAL) TAB PO SCH ×3 (08:08→20:26)
[2018-02-19] MEDS: LIDOCAINE (LIDODERM) 5% PATCH TOP SCH (08:08)
[2018-02-19] MEDS: ALLOPURINOL 100 MG (ZYLOPRIM) TAB PO SCH (08:08)
[2018-02-19] MEDS: LORATADINE (CLARITIN) 10 MG TAB PO SCH (08:08)
[2018-02-19] MEDS: SERTRALINE 100 MG (ZOLOFT) TAB PO SCH (08:08)
[2018-02-19] MEDS: ENOXAPARIN 40 MG/0.4 ML (LOVENOX) SYR SC SCH (08:08)
[2018-02-19] MEDS: amLODIPine 2.5MG (NORVASC) TAB PO SCH (08:08)
[2018-02-19] MEDS: ATENOLOL 50 MG (TENORMIN) TAB PO SCH (08:08)
[2018-02-19] MEDS: HYDROcodone/APAP 5 MG/325 MG (LORTAB) TAB PO PRN ×2 (08:08→17:42)
[2018-02-19] MEDS: ARTIFICAL TEARS 0.4 ML UNIT DOSE (REFRESH PLUS) OU SCH ×4 (08:09→20:25)
[2018-02-19] MEDS: DOCUSATE SODIUM 100 MG (COLACE) CAP PO SCH ×2 (08:09→20:27)
[2018-02-19] MEDS: SENNA W/DOCUSATE (SENOKOT S) TABLET PO SCH ×2 (08:09→20:27)
[2018-02-19 08:12] VITALS: BP 120/62
[2018-02-19] MEDS: TRIAMCINOLONE 0.1% CR (KENALOG) 15 GM TUBE TOP SCH ×3 (08:18→20:26)
--- NOTE | 2018-02-19 08:47 | Progress Note (SOAP) ---
Subjective Time Seen by Provider: 08:45 Subjective/Events-last exam Patient left I swelling. Kidney function better at 43 now. Strokelike symptoms left sided Objective Exam Vital Signs Date Time Temp Pulse Resp B/P (MAP) Pulse Ox O2 Delivery O2 Flow Rate FiO2 02/19/18 08:12 120/62 (81) 62 02/19/18 05:46 97.2 59 21 77/37 (50) 97 Room Air 02/18/18 20:30 Room Air 02/18/18 18:00 98.0 71 20 108/67 (81) 97 Room Air 02/18/18 09:00 Room Air I & O 02/19/18 07:00 Intake Total 1960 ml Output Total 1825 ml Balance 135 ml Capillary Refill : General Appearance: No Apparent Distress, WD/WN Results Lab Laboratory Tests 02/18/18 11:37: Glucometer 219H 02/18/18 17:32: Glucometer 125H 02/18/18 21:04: Glucometer 234H 02/19/18 05:33: Glucometer 182H 02/19/18 06:38: Sodium Level 138, Potassium Level 4.8, Chloride Level 110H, Carbon Dioxide Level 18L, Anion Gap 10, Blood Urea Nitrogen 80H, Creatinine 1.61H, Estimat Glomerular Filtration Rate 43, BUN/Creatinine Ratio 50, Glucose Level 194H, Calcium Level 10.1 Assessment/Plan Assessment/Plan Assess & Plan/Chief Complaint Weakness left side of body. Craniotomy. History of seizures. Hypertension history. Weakness left side of body. Craniotomy. History of seizures. History of hypertension. Renal insufficiency to monitor her . 02/17/18. Weakness left side of body. Craniotomy. History of seizures. Hypertension. Renal insufficiency GFR 25. . 02/18/18. Weakness left side of body. Craniotomy. History of seizure. Hypertension. Renal insufficiency GFR 30 today` Patient swallowing better. . 02/19/18. Weakness left side of body. Renal insufficiency 43 much better. History of seizure. Patient worried about swollen left eye have Botox Clinical Quality Measures DVT/VTE Risk/Contraindication: Risk Factor Score Per Nursin RFS Level Per Nursing on Admit: 4+=Very High DARCY TORRES DO Feb 19, 2018 08:47
[2018-02-19] MEDS: FINASTERIDE (PROSCAR) 5 MG TAB PO SCH (08:58)
--- NOTE | 2018-02-19 09:57 | Speech Therapy Daily Note ---
Speech Daily Progress Note Subjective Date Seen by Provider: Feb 19, 2018 Time Seen by Provider: 08:15 The patient was seated upright in recliner upon entrance. The patient greeted the clinician and was agreeable to participation in the cognitive treatment session. The patient stated he did not sleep well throughout the prior state due to "a lot on my mind." The patient stated he is anxious regarding his possible transfer to a halfway and continues to have "a lot of questions" for his family and caregivers. The patient provided the clinician with several questions which she will share with the appropriate therapies, as well as, his dialysis social worker. Objective Safety Awareness: Due to the recent conversations, as well as, the patient's anxiety revolving around his transfer from the rehabilitation unit, the clinician discussed several safety barriers and issues in the patient's environment. The clinician attempted to raise the patient's awareness of the safety concerns regarding his discharge, as well as, specific information he would need to be responsible for following discharge: - Mobility: The patient shared with the clinician that he recently fell and his apartment and it required three to four individuals to help him up. This information was used by the clinician to demonstrate the necessity of increased care in his home, as well as, the necessity for SNF placement. The patient is a poor historian and additionally reported he was not walking prior to his admission at . Per patient, his daughter used a wheelchair to transport him in and out of his eye doctor appointments. Additionally, he recently recalled the use of two braces (one on each leg) for stability and the ownership of a power wheelchair. The patient reported he donated all of his items in approximately 2009 or 2010, however, cannot recall who he donated the equipment to. Regardless of maximum communication by therapy staff in regards to his reduced mobility, the patient continues to state "I should be fine, I just need a little more help." - Insulin: Due to the patient's recent need for insulin and blood sugar checks, the clinician asked the patient to discuss his current eating trends and identify items that may be causing his blood sugars to rise. Per patient, he consumes "sugar pops" for breakfast (a dry cereal), "whatever [employer] serves for lunch," and "I just snack on cupcakes and chips for dinner." The patient was challenged to identify items that may be contributing to high sugar levels. The patient smiled but did not state his diet is currently an issue. Dr. Garrett was present for a portion of the session and stated the patient has additionally gained weight. The patient was asked to monitor his intake and see if he could improve his sugar levels. Assessment Assessment Current Status: Fair Progress Communication Comprehension: 4 Expression: 4 Social Cognition Social Interaction: 5 Problem Solvin Memory: 3 Speech Short Term Goals Short Term Goals Short Term Goals 1. The patient will demonstrate hyperfunctional voice exercises with 80% accuracy and mild clinician cueing. 2. The patient will demonstrate and recall three functional memory strategies for use at home, independently. Time Frame-STG: One Week Speech Custodial Goals Custodial Goals 1. The patient will demonstrated improved expressive communication and cognitive skill for increased function and safety in the least restrictive setting. Time Frame: Three Weeks Comprehension: 5 Expression: 5 Social Interaction: 5 Problem Solvin Memory: 5 Speech-Plan Treatment Plan Speech Therapy Treatment Plan: Continue Plan of Care Continue skilled speech pathology to target safety problem solving and increased awareness. Treatment Duration: Feb 27, 2018 Frequency: Modified Program (IRF) (Four to five times per week.) Estimated Hrs Per Day: .5 hour per day Rehab Potential: Fair Safety Risks/Education Teaching Recipient: Patient Teaching Methods: Discussion Response to Teaching: Reinforcement Needed Education Topics Provided: Safety Barriers, Increased Safety Awareness Time Speech Therapy Time In: 08:15 Speech Therapy Time Out: 08:45 Total Billed Time: 30 Billed Treatment Time FANI Koehler ELIZABETH Feb 19, 2018 09:57
--- NOTE | 2018-02-19 10:01 | Physical Therapy Daily Note ---
PT Daily Note-Current Subjective Patient in recliner pre tx, agrees to PT, has pain of 3/10 in his head. Appearance Patient in recliner post tx with nurse call, phone, tray, all needs met. Mental Status Patient Orientation: Person, Place, Situation Transfers Functional [place] Measure 0=Not Assessed/NA 4=Minimal Assistance 1=Total Assistance 5=Supervision or Setup 2=Maximal Assistance 6=Modified [place] 3=Moderate Assistance 7=Complete IndependenceIRFPAI Quality Coding Scale 6 Independent with activity with or without an assistive device 5 Patient requires set up or clean up by helper. Patient completes activity by themselves 4 Supervision or touching assist (CGA). [place] provide cues , steadying assist 3 The helper provides less than half the effort to complete the activity 2 The helper provides more than half the effort to complete the activity 1 Dependent. The helper does all the effort to complete an activity 7 Patient refused to complete or attempt activity 9 The patient did not perform the activity before the current illness or injury 88 Not attempted due to Medical conditions or safety concerns Transfers (B, C, W/C) (FIM): 3 Scootin Rollin Supine to/from Sit: 4 Sit to/from Stand: 3 Bed to/from Chair: 3 Still mod assist for transfers but had less knee buckling. Weight Bearing Weight Bearing/Tolerated Weight Bearing/Tolerated Gait Training Gait (FIM): 2 Distance: 50'x2 Gait Level of Assist: 3 Gait Persons Needed: 2 Gait Assistive Device: FWW Patient had less knee buckling on the right side but still had trunk balance/ coordination difficulty. Wheelchair Training Does the Pt Use a Wheelchair?: Yes Wheelchair (FIM): 6 Distance: 150'x2 Type of Wheelchair: Manual Exercises Supine Ex: Bridging, Ankle pumps, Quad Set, Glut sets, Heel Slides, Straight leg raise, Hip abd/add Supine Reps: 20 LAQ alternating for 5 min Treatments bed mobility, transfers, ambulation, wheelchair mobility, functional strengthening Assessment Current Status: Fair Progress less right knee buckling during ambulation PT Short Term Goals Short Term Goals Time Frame: Feb 14, 2018 Transfers (B,C,W/C) (FIM): 5 Gait (FIM): 4 Distance (FIM): 3=150 ft Gait Distance Comment: 150ft with FWW Gait Level of Assist: 4 Gait Assistive Device: FWW Wheelchair Distance: 150'x2 PT Dag Coater Goals Senior Living Goals PT Dag Coater Goals Time Frame: Feb 28, 2018 Transfers (B,C,W/C) (FIM): 6 Sit to Lying (QC): 6 Lying-Sitting on Side/Bed(QC): 6 Sit to Stand (QC): 6 Rollin Roll Left to Right (QC): 6 Chair/Ija-re-Hxply Xfer(QC): 6 Car Transfer (QC): 4 Does the Patient Walk: Yes Gait (FIM): 5 Gait distance (FIM): 6=204-07 ft Distance: 50 Walk 10 feet (QC): 6 Walk 10ft-Uneven Surface(QC): 6 Walk 50ft with 2 Turns (QC): 5 Walk 150 ft (QC): 5 Gait Level of Assist: 6 Gait Assistive Device: FWW Stairs (FIM): 3 # of Steps: 5 1 Step (curb) (QC): 5 4 Steps (QC): 4 12 Steps (QC): 88 Picking up an Object (QC): 2 PT Plan Problem List Problem List: Activity Tolerance, Functional Strength, Safety, Balance, Gait, Transfer, Bed Mobility, ROM Treatment/Plan Treatment Plan: Continue Plan of Care Treatment Plan: Bed Mobility, Concurrent Therapy, Functional Activity Juan José, Functional Strength, Group Therapy, Gait, Safety, Therapeutic Exercise, Transfers Treatment Duration: Feb 28, 2018 Frequency: At least 5 of 7 days/Wk (IRF) Estimated Hrs Per Day: 1.5 hours per day Patient and/or Family Agrees t: Yes Safety Risks/Education Patient Education: Gait Training, Transfer Techniques, Correct Positioning, W/ C Management, Safety Issues Teaching Recipient: Patient Teaching Methods: Demonstration, Discussion Response to Teaching: Reinforcement Needed Time/GCodes Time In: 900 Time Out: 1000 Total Billed Treatment Time: 60 Total Billed Treatment 1 visit EX 30' GT 20' [facility] 10' ALESHIA PETERSEN PT Feb 19, 2018 10:01
--- NOTE | 2018-02-19 14:37 | Physical Therapy Daily Note ---
PT Daily Note-Current Subjective Patient in recliner pre tx, agrees to PT, no complaints of pain. Appearance Patient in recliner post tx with nurse call, phone, tray, all needs met. Mental Status Patient Orientation: Person, Place, Situation Transfers Functional [place] Measure 0=Not Assessed/NA 4=Minimal Assistance 1=Total Assistance 5=Supervision or Setup 2=Maximal Assistance 6=Modified [place] 3=Moderate Assistance 7=Complete IndependenceIRFPAI Quality Coding Scale 6 Independent with activity with or without an assistive device 5 Patient requires set up or clean up by helper. Patient completes activity by themselves 4 Supervision or touching assist (CGA). [place] provide cues , steadying assist 3 The helper provides less than half the effort to complete the activity 2 The helper provides more than half the effort to complete the activity 1 Dependent. The helper does all the effort to complete an activity 7 Patient refused to complete or attempt activity 9 The patient did not perform the activity before the current illness or injury 88 Not attempted due to Medical conditions or safety concerns Transfers (B, C, W/C) (FIM): 3 Sit to/from Stand: 3 Bed to/from Chair: 3 Weight Bearing Weight Bearing/Tolerated Weight Bearing/Tolerated Wheelchair Training Does the Pt Use a Wheelchair?: Yes Wheelchair (FIM): 6 Distance: 150'x2 Wheelchair Level of Assist: 6 Type of Wheelchair: Manual Exercises NuStep Minutes: 15 NuStep Workload: 5 Treatments transfers, functional strengthening, wheelchair mobility Assessment Current Status: Fair Progress better transfers today, less knee buckling PT Short Term Goals Short Term Goals Time Frame: Feb 14, 2018 Transfers (B,C,W/C) (FIM): 5 Gait (FIM): 4 Distance (FIM): 3=150 ft Gait Distance Comment: 150ft with FWW Gait Level of Assist: 4 Gait Assistive Device: FWW Wheelchair Distance: 150'x2 PT Rn Faculty Goals Long-Term Goals PT Rn Faculty Goals Time Frame: Feb 28, 2018 Transfers (B,C,W/C) (FIM): 6 Sit to Lying (QC): 6 Lying-Sitting on Side/Bed(QC): 6 Sit to Stand (QC): 6 Rollin Roll Left to Right (QC): 6 Chair/Qdm-wd-Otopq Xfer(QC): 6 Car Transfer (QC): 4 Does the Patient Walk: Yes Gait (FIM): 5 Gait distance (FIM): 7=768-67 ft Distance: 50 Walk 10 feet (QC): 6 Walk 10ft-Uneven Surface(QC): 6 Walk 50ft with 2 Turns (QC): 5 Walk 150 ft (QC): 5 Gait Level of Assist: 6 Gait Assistive Device: FWW Stairs (FIM): 3 # of Steps: 5 1 Step (curb) (QC): 5 4 Steps (QC): 4 12 Steps (QC): 88 Picking up an Object (QC): 2 PT Plan Problem List Problem List: Activity Tolerance, Functional Strength, Safety, Balance, Gait, Transfer, Bed Mobility, ROM Treatment/Plan Treatment Plan: Continue Plan of Care Treatment Plan: Bed Mobility, Concurrent Therapy, Functional Activity Juan José, Functional Strength, Group Therapy, Gait, Safety, Therapeutic Exercise, Transfers Treatment Duration: Feb 28, 2018 Frequency: At least 5 of 7 days/Wk (IRF) Estimated Hrs Per Day: 1.5 hours per day Patient and/or Family Agrees t: Yes Safety Risks/Education Patient Education: Transfer Techniques, Correct Positioning, W/C Management, Safety Issues Teaching Recipient: Patient Teaching Methods: Demonstration, Discussion Response to Teaching: Reinforcement Needed Time/GCodes Time In: 1400 Time Out: 1430 Total Billed Treatment Time: 30 Total Billed Treatment 1 visit EX 15' [facility] 15' ALESHIA PETERSEN PT Feb 19, 2018 14:37
--- NOTE | 2018-02-19 15:59 | Occupational Ther Daily Note ---
OT Current Status-Daily Note Subjective No pain reported. Appearance Pt. declines shower but agrees to work with OT. Mental Status/Objective Patient Orientation: Person, Place, Time Functional [place] Measure 0=Not Assessed/NA 4=Minimal Assistance 1=Total Assistance 5=Supervision or Setup 2=Maximal Assistance 6=Modified [place] 3=Moderate Assistance 7=Complete [place] ADL-Treatment Functional [place] Measure 0=Not Assessed/NA 4=Minimal Assistance 1=Total Assistance 5=Supervision or Setup 2=Maximal Assistance 6=Modified [place] 3=Moderate Assistance 7=Complete IndependenceIRFPAI Quality Coding Scale 6 Independent with activity with or without an assistive device 5 Patient requires set up or clean up by helper. Patient completes activity by themselves 4 Supervision or touching assist (CGA). [place] provide cues , steadying assist 3 The helper provides less than half the effort to complete the activity 2 The helper provides more than half the effort to complete the activity 1 Dependent. The helper does all the effort to complete an activity 7 Patient refused to complete or attempt activity 9 The patient did not perform the activity before the current illness or injury 88 Not attempted due to Medical conditions or safety concerns Transfers (B, C, W/C) (FIM): 2 (Max assist to stand and pivot.) Other Treatment Pt. agrees to treatment. Completed fine and gross motor exercises with left and right UE. Tolerated armbike x 20minutes at mod resistance, and then card/ paper clip activity for fine motor coordination tasks. Overall, pt. tolerated treatment well. However, states that he is having difficulty opening all containers and packages on trays. Pt. taken back to room. All needs met. Education OT Patient Education: Correct positioning, Progress toward Goal/Update tx plan , Purpose of tx/functional activities, Reviewed precautions, Rehab process, Transfer techniques Teaching Recipient: Patient Teaching Methods: Demonstration Response to Teaching: Verbalize Understanding, Return Demonstration OT Short Term Goals Short Term Goals Time Frame: Feb 14, 2018 Eating(FIM): 6 Grooming(FIM): 6 Bathing(FIM): 5 Upper Body Dressing(FIM): 5 Lower Body Dressing(FIM): 5 Toileting(FIM): 5 Transfers (B,C,W/C) (FIM): 5 Toilet/Commode Transfer(FIM): 5 Shower Transfer(FIM): 4 Additional Short Term Goals: 1-Demonstrate ADL Tasks, 2-Verbalize Understanding , 3-ImproveStrength/Juan José 1=Demonstrate adherence to instructed precautions during ADL tasks. 2=Patient will verbalize/demonstrate understanding of assistive devices/ modifications for ADL. 3=Patient will improve strength/tolerance for activity to enable patient to perform ADL's. OT [facility]pc Goals Human Services Manager Goals Time Frame: Feb 21, 2018 Eating (FIM): 6 Eating (QC): 6 Groomin Oral Hygiene (QC): 6 Bathing(FIM): 6 Shower/Bathe Self (QC): 6 Upper Body Dressing(FIM): 6 Upper Body Dressing (QC): 6 Lower Body Dressing(FIM): 6 Lower Body Dressing (QC): 6 On/Off Footwear (QC): 6 Toileting(FIM): 6 Toileting Hygiene (QC): 6 Transfers (B,C,W/C) (FIM): 6 Toilet/Commode Transfer(FIM): 6 Toilet/Commode Transfer (QC): 6 Comprehension(FIM): 5 Expression (FIM): 5 Social Interaction(FIM): 5 Problem Solving(FIM): 5 Memory(FIM): 5 1=Demonstrate adherence to instructed precautions during ADL tasks. 2=Patient will verbalize/demonstrate understanding of assistive devices/ modifications for ADL. 3=Patient will improve strength/tolerance for activity to enable patient to perform ADL's. OT Education/Plan Problem List/Assessment Assessment: Decreased Activ Tolerance, Dependent Transfers, Impaired I ADL's, Impaired Self-Care Skills Discharge Recommendations Plan/Recommendations: Continue POC Therapy D/C Recommendations: 24 hr Supervision Treatment Plan/Plan of Care Treatment,Training & Education: Yes Patient would benefit from OT for education, treatment and training to promote independence in ADL's, mobility, safety and/or upper extremity function for ADL' s. Plan of Care: ADL Retraining, Functional Mobility, Group Exercise/Act as Ind, UE Funct Exercise/Act Treatment Duration: Feb 21, 2018 Frequency: At least 5 of 7 days/Wk (IRF) Estimated Hrs Per Day: 1.5 hours per day Agreement: Yes Rehab Potential: Fair Time/GCodes Start Time: 10:30 Stop Time: 11:30 Total Time Billed (hr/min): 60 Billed Treatment Time 1, Ex x 30minutes, FA x 30minutes DAGMAR MURGUIA OT Feb 19, 2018 15:59
--- NOTE | 2018-02-19 16:02 | Occupational Ther Daily Note ---
OT Current Status-Daily Note Subjective No pain reported. Appearance Pt. in chair in room. Stayed in chair for treatment. Mental Status/Objective Patient Orientation: Person, Place Functional [place] Measure 0=Not Assessed/NA 4=Minimal Assistance 1=Total Assistance 5=Supervision or Setup 2=Maximal Assistance 6=Modified [place] 3=Moderate Assistance 7=Complete [place] ADL-Treatment Functional [place] Measure 0=Not Assessed/NA 4=Minimal Assistance 1=Total Assistance 5=Supervision or Setup 2=Maximal Assistance 6=Modified [place] 3=Moderate Assistance 7=Complete IndependenceIRFPAI Quality Coding Scale 6 Independent with activity with or without an assistive device 5 Patient requires set up or clean up by helper. Patient completes activity by themselves 4 Supervision or touching assist (CGA). [place] provide cues , steadying assist 3 The helper provides less than half the effort to complete the activity 2 The helper provides more than half the effort to complete the activity 1 Dependent. The helper does all the effort to complete an activity 7 Patient refused to complete or attempt activity 9 The patient did not perform the activity before the current illness or injury 88 Not attempted due to Medical conditions or safety concerns Lower Body Dressing (FIM): 4 (Pt. utilized adaptive equipment to doff socks and don socks/shoes. OT put elastic laces into shoes.) Lower Body Dressing (QC): 4 On/Off Footwear (QC): 4 Other Treatment After pt. practiced shoes and socks, tolerated fine motor strengthening tasks. Pt. given hand sponge, theraputty, and theraband to increase overall strength. Completed exercises in all planes. Tolerated this well. Education OT Patient Education: Correct positioning, Exercise program, Home exercise program, Modified ADL techniques, Progress toward Goal/Update tx plan, Purpose of tx/functional activities, Reviewed precautions, Rehab process, Transfer techniques Teaching Recipient: Patient Teaching Methods: Demonstration Response to Teaching: Verbalize Understanding, Return Demonstration OT Short Term Goals Short Term Goals Time Frame: Feb 14, 2018 Eating(FIM): 6 Grooming(FIM): 6 Bathing(FIM): 5 Upper Body Dressing(FIM): 5 Lower Body Dressing(FIM): 5 Toileting(FIM): 5 Transfers (B,C,W/C) (FIM): 5 Toilet/Commode Transfer(FIM): 5 Shower Transfer(FIM): 4 Additional Short Term Goals: 1-Demonstrate ADL Tasks, 2-Verbalize Understanding , 3-ImproveStrength/Juan José 1=Demonstrate adherence to instructed precautions during ADL tasks. 2=Patient will verbalize/demonstrate understanding of assistive devices/ modifications for ADL. 3=Patient will improve strength/tolerance for activity to enable patient to perform ADL's. OT Dye Box Operator Goals Dye Box Operator Goals Time Frame: Feb 21, 2018 Eating (FIM): 6 Eating (QC): 6 Groomin Oral Hygiene (QC): 6 Bathing(FIM): 6 Shower/Bathe Self (QC): 6 Upper Body Dressing(FIM): 6 Upper Body Dressing (QC): 6 Lower Body Dressing(FIM): 6 Lower Body Dressing (QC): 6 On/Off Footwear (QC): 6 Toileting(FIM): 6 Toileting Hygiene (QC): 6 Transfers (B,C,W/C) (FIM): 6 Toilet/Commode Transfer(FIM): 6 Toilet/Commode Transfer (QC): 6 Comprehension(FIM): 5 Expression (FIM): 5 Social Interaction(FIM): 5 Problem Solving(FIM): 5 Memory(FIM): 5 1=Demonstrate adherence to instructed precautions during ADL tasks. 2=Patient will verbalize/demonstrate understanding of assistive devices/ modifications for ADL. 3=Patient will improve strength/tolerance for activity to enable patient to perform ADL's. OT Education/Plan Problem List/Assessment Assessment: Decreased Activ Tolerance, Dependent Transfers, Impaired I ADL's, Impaired Self-Care Skills Discharge Recommendations Plan/Recommendations: Continue POC Therapy D/C Recommendations: 24 hr Supervision Treatment Plan/Plan of Care Treatment,Training & Education: Yes Patient would benefit from OT for education, treatment and training to promote independence in ADL's, mobility, safety and/or upper extremity function for ADL' s. Plan of Care: ADL Retraining, Functional Mobility, Group Exercise/Act as Ind, UE Funct Exercise/Act Treatment Duration: Feb 21, 2018 Frequency: At least 5 of 7 days/Wk (IRF) Estimated Hrs Per Day: 1.5 hours per day Agreement: Yes Rehab Potential: Fair Time/GCodes Start Time: 13:30 Stop Time: 14:00 Total Time Billed (hr/min): 30 Billed Treatment Time 1, ADL x 15minutes, Ex x 15minutes DAGMAR MURGUIA OT Feb 19, 2018 16:02
[2018-02-19 17:44] VITALS: BP 114/67
--- NOTE | 2018-02-19 20:23 | PM & R (SOAP) Progress Note ---
Subjective Time Seen by Provider: 20:15 Subjective/Events-last exam Patient was seen in his room this evening SW indicates that patient OK with placement at snu rather then home with skill workers Patient Mod assist for transfers Appreciate Dr epps note and orders Review of Systems Neurological: Weakness Objective Exam Last Set of Vital Signs Vital Signs Date Time Temp Pulse Resp B/P (MAP) Pulse Ox O2 Delivery O2 Flow Rate FiO2 02/19/18 17:44 98.6 76 18 114/67 (83) 96 Room Air 02/19/18 06:30 2.00 Capillary Refill : I&O Intake and Output 02/19/18 00:00 Intake Total 1860 ml Output Total 2800 ml Balance -940 ml Intake Oral 1860 ml Output Urine Total 2800 ml # Voids 1 # Bowel Movements 2 General: Alert, Oriented X3, Cooperative, No Acute Distress HEENT: Other (mild periorbital swelling) Neck: Supple, No JVD Lungs: Clear to Auscultation Heart: Regular Rate Abdomen: Normal Bowel Sounds Extremities: No Edema Neuro: Other (left HP mild cognitive deficict) Results Lab Laboratory Tests 02/16/18 22:26: Glucometer 159H 02/17/18 06:33: Glucometer 167H 02/17/18 06:34: Sodium Level 139, Potassium Level 5.2H, Chloride Level 108H, Carbon Dioxide Level 17L, Anion Gap 14, Blood Urea Nitrogen 89H, Creatinine 2.54H, Estimat Glomerular Filtration Rate 25, BUN/Creatinine Ratio 35, Glucose Level 167H, Calcium Level 10.0 02/17/18 11:32: Glucometer 237H 02/17/18 16:09: Glucometer 224H 02/17/18 20:51: Glucometer 226H 02/18/18 06:12: Glucometer 184H 02/18/18 06:23: Sodium Level 139, Potassium Level 5.2H, Chloride Level 110H, Carbon Dioxide Level 19L, Anion Gap 10, Blood Urea Nitrogen 85H, Creatinine 2.18H, Estimat Glomerular Filtration Rate 30, BUN/Creatinine Ratio 39, Glucose Level 193H, Calcium Level 9.9 02/18/18 11:37: Glucometer 219H 02/18/18 17:32: Glucometer 125H 02/18/18 21:04: Glucometer 234H 02/19/18 05:33: Glucometer 182H 02/19/18 06:38: Sodium Level 138, Potassium Level 4.8, Chloride Level 110H, Carbon Dioxide Level 18L, Anion Gap 10, Blood Urea Nitrogen 80H, Creatinine 1.61H, Estimat Glomerular Filtration Rate 43, BUN/Creatinine Ratio 50, Glucose Level 194H, Calcium Level 10.1 02/19/18 11:16: Glucometer 180H 02/19/18 16:26: Glucometer 121H Assessment/Plan Assessment Left HP associated with action tremors-repeat CT appears unchanged Mild cognitive deficit 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
[2018-02-19] MEDS: ERYTHROMYCIN OPHTH OINT 1 GM (SINGLE USE) TUBE OP SCH (20:25)
[2018-02-19] MEDS: ATORVASTATIN 20 MG (LIPITOR) TABLET PO SCH (20:26)
[2018-02-19] MEDS: MIRTAZAPINE 15 MG (REMERON) TAB PO SCH (20:26)
[2018-02-19] MEDS: LIDOCAINE PATCH REMOVAL TP SCH (20:28)
[2018-02-20 05:26] VITALS: BP 95/52
[2018-02-20 06:11] LABS: CALCIUM 9.6 MG/DL (8.5-10.1); CREATININE SERUM 1.51 MG/DL (0.60-1.30); POTASSIUM 4.4 MMOL/L (3.6-5.0)
[2018-02-20] MEDS: GLIMEPIRIDE 2 MG (AMARYL) TAB PO SCH ×2 (06:32→18:00)
[2018-02-20] MEDS: PANTOPRAZOLE 20 MG TABLET (PROTONIX) PO SCH (06:32)
[2018-02-20] MEDS: LINAGLIPTIN (TRADJENTA) 5 MG TABLET PO SCH (06:33)
[2018-02-20] MEDS: GABAPENTIN 400 MG (NEURONTIN) CAP PO SCH ×3 (06:33→21:20)
[2018-02-20] MEDS: inSUlin (REGULAR) HUMAN 1 UNIT/0.01 ML (CHARGE PER UNIT) SC SCH ×4 (06:35→21:13)
[2018-02-20 08:12] VITALS: BP 117/71
[2018-02-20] MEDS: SERTRALINE 100 MG (ZOLOFT) TAB PO SCH (08:13)
[2018-02-20] MEDS: LIDOCAINE (LIDODERM) 5% PATCH TOP SCH (08:13)
[2018-02-20] MEDS: BACLOFEN 10 MG (LIORESAL) TAB PO SCH ×3 (08:13→21:13)
[2018-02-20] MEDS: FINASTERIDE (PROSCAR) 5 MG TAB PO SCH (08:13)
[2018-02-20] MEDS: ATENOLOL 50 MG (TENORMIN) TAB PO SCH (08:13)
[2018-02-20] MEDS: amLODIPine 2.5MG (NORVASC) TAB PO SCH (08:13)
[2018-02-20] MEDS: LORATADINE (CLARITIN) 10 MG TAB PO SCH (08:14)
[2018-02-20] MEDS: lisINopril 10 MG (PRINIVIL) TABLET PO SCH (08:14)
[2018-02-20] MEDS: DOCUSATE SODIUM 100 MG (COLACE) CAP PO SCH ×2 (08:14→21:13)
[2018-02-20] MEDS: ALLOPURINOL 100 MG (ZYLOPRIM) TAB PO SCH (08:14)
[2018-02-20] MEDS: ARTIFICAL TEARS 0.4 ML UNIT DOSE (REFRESH PLUS) OU SCH ×4 (08:14→21:14)
[2018-02-20] MEDS: TORSEMIDE 20 MG (DEMADEX) TAB PO SCH (08:14)
[2018-02-20] MEDS: HYDROcodone/APAP 5 MG/325 MG (LORTAB) TAB PO PRN ×2 (08:14→18:00)
[2018-02-20] MEDS: ENOXAPARIN 40 MG/0.4 ML (LOVENOX) SYR SC SCH (08:14)
[2018-02-20] MEDS: PHENYTOIN 100 MG (DILANTIN) CAP PO SCH (08:14)
[2018-02-20] MEDS: SENNA W/DOCUSATE (SENOKOT S) TABLET PO SCH ×2 (08:15→21:13)
[2018-02-20] MEDS: TRIAMCINOLONE 0.1% CR (KENALOG) 15 GM TUBE TOP SCH ×3 (08:18→21:15)
--- NOTE | 2018-02-20 08:45 | Occupational Ther Daily Note ---
OT Current Status-Daily Note Subjective Pt sleeping in bed, CPAP on. Pt woke to name. Pt agreed to therapy. No c/o pain at this time. Mental Status/Objective Patient Orientation: Person, Place, Time, Situation Functional [place] Measure 0=Not Assessed/NA 4=Minimal Assistance 1=Total Assistance 5=Supervision or Setup 2=Maximal Assistance 6=Modified [place] 3=Moderate Assistance 7=Complete [place] ADL-Treatment Functional [place] Measure 0=Not Assessed/NA 4=Minimal Assistance 1=Total Assistance 5=Supervision or Setup 2=Maximal Assistance 6=Modified [place] 3=Moderate Assistance 7=Complete IndependenceIRFPAI Quality Coding Scale 6 Independent with activity with or without an assistive device 5 Patient requires set up or clean up by helper. Patient completes activity by themselves 4 Supervision or touching assist (CGA). [place] provide cues , steadying assist 3 The helper provides less than half the effort to complete the activity 2 The helper provides more than half the effort to complete the activity 1 Dependent. The helper does all the effort to complete an activity 7 Patient refused to complete or attempt activity 9 The patient did not perform the activity before the current illness or injury 88 Not attempted due to Medical conditions or safety concerns Bathing (FIM): 5 (Setup/supervision. Sitting on rolling shower chair with cutout, pt is able to reach all areas without standing used long handle sponge, hand held shower and grabbars.) Bathing Location: L Arm, R Arm, L Upper Leg, R Upper Leg, L Lower Leg ( including foot), R Lower Leg (including foot), Chest, Abdomen, Buttocks, Perineal Area Shower/Bathe Self (QC): 4 Upper Body (FIM): 5 (After set up, pt is able to complete upper body dressing.) Upper Body Dressing (QC): 5 Lower Body Dressing (FIM): 2 (Pt requires assist to don/doff clothing over feet. Pt pulls pants up legs then with max A to stand pt is able to assist to hike pants over hips.) Lower Body Dressing (QC): 2 On/Off Footwear (QC): 2 Toileting (FIM): 1 (Assist x2 to manipulate clothing then is able to cleanse self after voiding.) Toileting Hygiene (QC): 1 Toilet/Commode Transfer (FIM): 2 (Max A for transfers.) Toilet Transfer (QC): 2 Shower Transfer(FIM): 1 (Using rolling shower chair with cut out pt is transferred into shower.) After therapy, pt sitting in recliner with call light/phone in reach. All needs met in room. OT Short Term Goals Short Term Goals Time Frame: Feb 14, 2018 Eating(FIM): 6 Grooming(FIM): 6 Bathing(FIM): 5 Upper Body Dressing(FIM): 5 Lower Body Dressing(FIM): 5 Toileting(FIM): 5 Transfers (B,C,W/C) (FIM): 5 Toilet/Commode Transfer(FIM): 5 Shower Transfer(FIM): 4 Additional Short Term Goals: 1-Demonstrate ADL Tasks, 2-Verbalize Understanding , 3-ImproveStrength/J[place] 1=Demonstrate adherence to instructed precautions during ADL tasks. 2=Patient will verbalize/demonstrate understanding of assistive devices/ modifications for ADL. 3=Patient will improve strength/tolerance for activity to enable patient to perform ADL's. OT Green Prize Packer Goals Green Prize Packer Goals Time Frame: Feb 21, 2018 Eating (FIM): 6 Eating (QC): 6 Groomin Oral Hygiene (QC): 6 Bathing(FIM): 6 Shower/Bathe Self (QC): 6 Upper Body Dressing(FIM): 6 Upper Body Dressing (QC): 6 Lower Body Dressing(FIM): 6 Lower Body Dressing (QC): 6 On/Off Footwear (QC): 6 Toileting(FIM): 6 Toileting Hygiene (QC): 6 Transfers (B,C,W/C) (FIM): 6 Toilet/Commode Transfer(FIM): 6 Toilet/Commode Transfer (QC): 6 Comprehension(FIM): 5 Expression (FIM): 5 Social Interaction(FIM): 5 Problem Solving(FIM): 5 Memory(FIM): 5 1=Demonstrate adherence to instructed precautions during ADL tasks. 2=Patient will verbalize/demonstrate understanding of assistive devices/ modifications for ADL. 3=Patient will improve strength/tolerance for activity to enable patient to perform ADL's. OT Education/Plan Discharge Recommendations Plan/Recommendations: Continue POC Treatment Plan/Plan of Care Patient would benefit from OT for education, treatment and training to promote independence in ADL's, mobility, safety and/or upper extremity function for ADL' s. Plan of Care: ADL Retraining, Functional Mobility, Group Exercise/Act as Ind, UE Funct Exercise/Act Treatment Duration: Feb 21, 2018 Frequency: At least 5 of 7 days/Wk (IRF) Estimated Hrs Per Day: 1.5 hours per day Agreement: Yes Rehab Potential: Fair Time/GCodes Start Time: 07:50 Stop Time: 08:45 Total Time Billed (hr/min): 55 Billed Treatment Time 1 visit-ADL 4 (55 min) TRENT VALENTE Feb 20, 2018 08:45
--- NOTE | 2018-02-20 08:51 | Progress Note (SOAP) ---
Subjective Time Seen by Provider: 08:50 Subjective/Events-last exam Patient having trouble going long distance. Kidney function Improving. Objective Exam Vital Signs Date Time Temp Pulse Resp B/P (MAP) Pulse Ox O2 Delivery O2 Flow Rate FiO2 02/20/18 05:26 97.1 56 18 95/52 (66) 95 NIV CPAP 02/19/18 20:20 Room Air 02/19/18 17:44 98.6 76 18 114/67 (83) 96 Room Air 02/19/18 09:15 Room Air I & O 02/20/18 07:00 Intake Total 2100 ml Output Total 2750 ml Balance -650 ml Capillary Refill : General Appearance: No Apparent Distress, WD/WN Results Lab Laboratory Tests 02/19/18 11:16: Glucometer 180H 02/19/18 16:26: Glucometer 121H 02/19/18 20:24: Glucometer 148H 02/20/18 05:17: Sodium Level 138, Potassium Level 4.4, Chloride Level 110H, Carbon Dioxide Level 18L, Anion Gap 10, Blood Urea Nitrogen 71H, Creatinine 1.51H, Estimat Glomerular Filtration Rate 46, BUN/Creatinine Ratio 47, Glucose Level 187H, Calcium Level 9.6 02/20/18 05:19: Glucometer 187H Assessment/Plan Assessment/Plan Assess & Plan/Chief Complaint Weakness left side of body. Craniotomy. History of seizures. Hypertension history. Weakness left side of body. Craniotomy. History of seizures. History of hypertension. Renal insufficiency to monitor her . 02/17/18. Weakness left side of body. Craniotomy. History of seizures. Hypertension. Renal insufficiency GFR 25. . 02/18/18. Weakness left side of body. Craniotomy. History of seizure. Hypertension. Renal insufficiency GFR 30 today` Patient swallowing better. . 02/19/18. Weakness left side of body. Renal insufficiency 43 much better. History of seizure. Patient worried about swollen left eye have Botox. . 02/20/18. Weakness left side of body. Renal insufficiency GFR 46 better. History of seizure Clinical Quality Measures DVT/VTE Risk/Contraindication: Risk Factor Score Per Nursin RFS Level Per Nursing on Admit: 4+=Very High DARCY TORRES DO Feb 20, 2018 08:51
--- NOTE | 2018-02-20 09:57 | Physical Therapy Daily Note ---
PT Daily Note-Current Subjective Patient in recliner pre tx, agrees to PT, no complaints of pain. Appearance Patient in wheelchair at bedside post tx, has nurse call, phone, tray, all needs met. Mental Status Patient Orientation: Person, Place, Situation Transfers Functional [place] Measure 0=Not Assessed/NA 4=Minimal Assistance 1=Total Assistance 5=Supervision or Setup 2=Maximal Assistance 6=Modified [place] 3=Moderate Assistance 7=Complete IndependenceIRFPAI Quality Coding Scale 6 Independent with activity with or without an assistive device 5 Patient requires set up or clean up by helper. Patient completes activity by themselves 4 Supervision or touching assist (CGA). [place] provide cues , steadying assist 3 The helper provides less than half the effort to complete the activity 2 The helper provides more than half the effort to complete the activity 1 Dependent. The helper does all the effort to complete an activity 7 Patient refused to complete or attempt activity 9 The patient did not perform the activity before the current illness or injury 88 Not attempted due to Medical conditions or safety concerns Transfers (B, C, W/C) (FIM): 3 Sit to/from Stand: 3 Bed to/from Chair: 3 Knees are buckling more today compared to yesterday. Patient performed 4-5 stand pivot transfers during treatment. Weight Bearing Weight Bearing/Tolerated Weight Bearing/Tolerated Wheelchair Training Does the Pt Use a Wheelchair?: Yes Wheelchair (FIM): 6 Distance: 150'x2 Type of Wheelchair: Manual Exercises standing in parallel bars with mod assist x4 for about 3-4 min each time with rest breaks between, LAQ alternating for 5 min NuStep Minutes: 15 NuStep Workload: 5 Treatments wheelchair mobility, transfers, functional strengthening, standing in parallel bars Assessment Current Status: Poor Progress no change in mobility PT Short Term Goals Short Term Goals Time Frame: Feb 14, 2018 Transfers (B,C,W/C) (FIM): 5 Gait (FIM): 4 Distance (FIM): 3=150 ft Gait Distance Comment: 150ft with FWW Gait Level of Assist: 4 Gait Assistive Device: FWW Wheelchair Distance: 150'x2 PT Cubing Machine Tender Goals Cubing Machine Tender Goals PT Longterm Goals Time Frame: Feb 28, 2018 Transfers (B,C,W/C) (FIM): 6 Sit to Lying (QC): 6 Lying-Sitting on Side/Bed(QC): 6 Sit to Stand (QC): 6 Rollin Roll Left to Right (QC): 6 Chair/[id number] Xfer(QC): 6 Car Transfer (QC): 4 Does the Patient Walk: Yes Gait (FIM): 5 Gait distance (FIM): 9=883-72 ft Distance: 50 Walk 10 feet (QC): 6 Walk 10ft-Uneven Surface(QC): 6 Walk 50ft with 2 Turns (QC): 5 Walk 150 ft (QC): 5 Gait Level of Assist: 6 Gait Assistive Device: FWW Stairs (FIM): 3 # of Steps: 5 1 Step (curb) (QC): 5 4 Steps (QC): 4 12 Steps (QC): 88 Picking up an Object (QC): 2 PT Plan Problem List Problem List: Activity Tolerance, Functional Strength, Safety, Balance, Gait, Transfer, Bed Mobility, ROM Treatment/Plan Treatment Plan: Continue Plan of Care Treatment Plan: Bed Mobility, Concurrent Therapy, Functional Activity Juan José, Functional Strength, Group Therapy, Gait, Safety, Therapeutic Exercise, Transfers Treatment Duration: Feb 28, 2018 Frequency: At least 5 of 7 days/Wk (IRF) Estimated Hrs Per Day: 1.5 hours per day Patient and/or Family Agrees t: Yes Safety Risks/Education Patient Education: Transfer Techniques, Correct Positioning, W/C Management, Safety Issues Teaching Recipient: Patient Teaching Methods: Demonstration, Discussion Response to Teaching: Reinforcement Needed Time/GCodes Time In: 900 Time Out: 1000 Total Billed Treatment Time: 60 Total Billed Treatment 1 visit [facility] 10' EX 20' FA 30' ALESHIA PETERSEN PT Feb 20, 2018 09:57
--- NOTE | 2018-02-20 14:21 | Speech Therapy Daily Note ---
Speech Daily Progress Note Subjective Date Seen by Provider: Feb 20, 2018 Time Seen by Provider: 10:00 The patient was seated upright in his wheelchair upon entrance. The patient greeted the clinician appropriately and was agreeable to participation in the cognitive treatment session. The patient stated he rested easier the night prior and is more at ease with his decision regarding [employer]. Objective Functional Memory: The patient was provided short paragraphs (three to four sentences in length) and asked to recall three to four items from each paragraph. The patient demonstrated reduced accuracy on this date in comparison to the prior session. The patient was able to recall one of three/four items per paragraph. With increased repetition of stimulus and cueing, the patient's accuracy minimally improved. Assessment Assessment Current Status: Poor Progress Treatment Plan Continue Plan of Care Communication Comprehension: 4 Expression: 4 Social Cognition Social Interaction: 5 Problem Solvin Memory: 3 Speech Short Term Goals Short Term Goals Short Term Goals 1. The patient will demonstrate hyperfunctional voice exercises with 80% accuracy and mild clinician cueing. 2. The patient will demonstrate and recall three functional memory strategies for use at home, independently. Time Frame-STG: One Week Speech Machine Shop Lead Man Goals Machine Shop Lead Man Goals 1. The patient will demonstrated improved expressive communication and cognitive skill for increased function and safety in the least restrictive setting. Time Frame: Three Weeks Comprehension: 5 Expression: 5 Social Interaction: 5 Problem Solvin Memory: 5 Speech-Plan Treatment Plan Speech Therapy Treatment Plan: Continue Plan of Care Continue skilled speech pathology to target functional memory and problem solving. Treatment Duration: Feb 27, 2018 Frequency: Modified Program (IRF) (Four to five times per week.) Estimated Hrs Per Day: .5 hour per day Rehab Potential: Fair Safety Risks/Education Teaching Recipient: Patient Teaching Methods: Discussion Response to Teaching: Verbalize Understanding, Reinforcement Needed Education Topics Provided: Functional Memory Strategies, Orientation Strategies Time Speech Therapy Time In: 10:00 Speech Therapy Time Out: 10:30 Total Billed Time: 30 Billed Treatment Time ZakiaFANI ELIZABETH ST Feb 20, 2018 14:21
--- NOTE | 2018-02-20 14:34 | Therapy Group Daily Note ---
Therapy Daily Group Note Patient Education Topic Home Safety, Other List Below (Continuum of care ...acute to rehab to home) Exercises LE Seated Exercise, UE Exercise Other/Notes Pt. participated in PT OT group this date. Pt. came via w/c with min to verbal cues. Pts socialized, introduced selves and shared mutual interests etc. Pts interacted with Sequence Home safety question/answer game with bag toss and seated U&L extremity exercises . Pts interacted well. Local resources after DC were shared. Pt to room after , call cook at hand Start Time: 13:00 Stop Time: 14:10 Total Billed Treatment Time: 70 Total Billed Treatment 1,GRP JOSE DAY FARMWORKER ANIMAL Feb 20, 2018 14:34
--- NOTE | 2018-02-20 15:10 | PM & R (SOAP) Progress Note ---
Subjective Time Seen by Provider: 10:45 Subjective/Events-last exam Patient was seen in his room this AM Discussed case with SW Patient to go to SNU on Friday for ongoing care and therapies as he still require assistance for transfers and mobility,Current labs noted Review of Systems Neurological: Weakness Objective Exam Last Set of Vital Signs Vital Signs Date Time Temp Pulse Resp B/P (MAP) Pulse Ox O2 Delivery O2 Flow Rate FiO2 02/20/18 09:00 Room Air 02/20/18 05:26 97.1 56 18 95/52 (66) 95 02/19/18 06:30 2.00 Capillary Refill : I&O Intake and Output 02/20/18 00:00 Intake Total 2100 ml Output Total 2350 ml Balance -250 ml Intake Oral 2100 ml Output Urine Total 2350 ml # Bowel Movements 1 General: Alert, Oriented X3, Cooperative, No Acute Distress HEENT: Other (mild periorbital swelling) Neck: Supple, No JVD Lungs: Clear to Auscultation Heart: Regular Rate Abdomen: Normal Bowel Sounds Extremities: No Edema Neuro: Other (left HP mild cognitive deficict) Results Lab Laboratory Tests 02/17/18 16:09: Glucometer 224H 02/17/18 20:51: Glucometer 226H 02/18/18 06:12: Glucometer 184H 02/18/18 06:23: Sodium Level 139, Potassium Level 5.2H, Chloride Level 110H, Carbon Dioxide Level 19L, Anion Gap 10, Blood Urea Nitrogen 85H, Creatinine 2.18H, Estimat Glomerular Filtration Rate 30, BUN/Creatinine Ratio 39, Glucose Level 193H, Calcium Level 9.9 02/18/18 11:37: Glucometer 219H 02/18/18 17:32: Glucometer 125H 02/18/18 21:04: Glucometer 234H 02/19/18 05:33: Glucometer 182H 02/19/18 06:38: Sodium Level 138, Potassium Level 4.8, Chloride Level 110H, Carbon Dioxide Level 18L, Anion Gap 10, Blood Urea Nitrogen 80H, Creatinine 1.61H, Estimat Glomerular Filtration Rate 43, BUN/Creatinine Ratio 50, Glucose Level 194H, Calcium Level 10.1 02/19/18 11:16: Glucometer 180H 02/19/18 16:26: Glucometer 121H 02/19/18 20:24: Glucometer 148H 02/20/18 05:17: Sodium Level 138, Potassium Level 4.4, Chloride Level 110H, Carbon Dioxide Level 18L, Anion Gap 10, Blood Urea Nitrogen 71H, Creatinine 1.51H, Estimat Glomerular Filtration Rate 46, BUN/Creatinine Ratio 47, Glucose Level 187H, Calcium Level 9.6 02/20/18 05:19: Glucometer 187H 02/20/18 11:00: Glucometer 226H Assessment/Plan Assessment Left HP associated with action tremors-repeat CT appears unchanged Mild cognitive deficit S/p Left crani and temporal resection for seizures DM-controlled HTN CAD s/p ME CKD Plan Continue PT/OT/ST Continue SS Insulin regimen to cover for elevated Accucheks-improved Recheck Labs-see orders Appreciate DR epps notes and orders Will Recheck CT head See orders.-done Team Conference held 02-18-18-see report for full functional update and POC and ELOS Discharge set tentatively for Friday02-23-18 to local u VALERIE BROWN MD Feb 20, 2018 15:10
[2018-02-20] MEDS ORDERED: CARB1DRO OU ×2 (15:39)
[2018-02-20] MEDS ORDERED: ATOR20TA66 PO (15:39)
[2018-02-20] MEDS ORDERED: Nitroglycerin SL (15:39)
[2018-02-20] MEDS ORDERED: SENN-20 PO (15:39)
[2018-02-20] MEDS ORDERED: TR1C15 TOP (15:39)
[2018-02-20] MEDS ORDERED: ERYT1OIN6 OP (15:39)
[2018-02-20] MEDS ORDERED: HYDR-3812 PO (15:39)
[2018-02-20] MEDS ORDERED: AMLO2.5T PO (15:39)
[2018-02-20 18:26] VITALS: BP 123/65
[2018-02-20] MEDS: ATORVASTATIN 20 MG (LIPITOR) TABLET PO SCH (21:13)
[2018-02-20] MEDS: MIRTAZAPINE 15 MG (REMERON) TAB PO SCH (21:13)
[2018-02-20] MEDS: ERYTHROMYCIN OPHTH OINT 1 GM (SINGLE USE) TUBE OP SCH (21:14)
[2018-02-20] MEDS: LIDOCAINE PATCH REMOVAL TP SCH (21:17)
[2018-02-21 05:25] VITALS: BP 97/53
[2018-02-21] MEDS: PANTOPRAZOLE 20 MG TABLET (PROTONIX) PO SCH (06:11)
[2018-02-21] MEDS: GABAPENTIN 400 MG (NEURONTIN) CAP PO SCH ×3 (06:11→20:57)
[2018-02-21] MEDS: GLIMEPIRIDE 2 MG (AMARYL) TAB PO SCH ×2 (06:11→17:46)
[2018-02-21] MEDS: inSUlin (REGULAR) HUMAN 1 UNIT/0.01 ML (CHARGE PER UNIT) SC SCH ×4 (06:12→20:47)
[2018-02-21] MEDS: LINAGLIPTIN (TRADJENTA) 5 MG TABLET PO SCH (06:15)
[2018-02-21] MEDS: SENNA W/DOCUSATE (SENOKOT S) TABLET PO SCH ×2 (09:24→20:48)
[2018-02-21] MEDS: DOCUSATE SODIUM 100 MG (COLACE) CAP PO SCH ×2 (09:24→20:48)
[2018-02-21] MEDS: SERTRALINE 100 MG (ZOLOFT) TAB PO SCH (09:25)
[2018-02-21] MEDS: ATENOLOL 50 MG (TENORMIN) TAB PO SCH (09:25)
[2018-02-21] MEDS: PHENYTOIN 100 MG (DILANTIN) CAP PO SCH (09:25)
[2018-02-21] MEDS: ALLOPURINOL 100 MG (ZYLOPRIM) TAB PO SCH (09:26)
[2018-02-21] MEDS: lisINopril 10 MG (PRINIVIL) TABLET PO SCH (09:27)
[2018-02-21] MEDS: TORSEMIDE 20 MG (DEMADEX) TAB PO SCH (09:27)
[2018-02-21] MEDS: FINASTERIDE (PROSCAR) 5 MG TAB PO SCH (09:27)
[2018-02-21] MEDS: amLODIPine 2.5MG (NORVASC) TAB PO SCH (09:27)
[2018-02-21] MEDS: ARTIFICAL TEARS 0.4 ML UNIT DOSE (REFRESH PLUS) OU SCH ×4 (09:28→20:47)
[2018-02-21] MEDS: LORATADINE (CLARITIN) 10 MG TAB PO SCH (09:28)
[2018-02-21] MEDS: BACLOFEN 10 MG (LIORESAL) TAB PO SCH ×3 (09:28→20:46)
[2018-02-21] MEDS: LIDOCAINE (LIDODERM) 5% PATCH TOP SCH (09:29)
[2018-02-21] MEDS: TRIAMCINOLONE 0.1% CR (KENALOG) 15 GM TUBE TOP SCH ×3 (09:29→20:45)
[2018-02-21] MEDS: ENOXAPARIN 40 MG/0.4 ML (LOVENOX) SYR SC SCH (09:31)
--- NOTE | 2018-02-21 11:51 | Physical Therapy Daily Note ---
PT Daily Note-Current Subjective Pt agreeable. Anxious to get up to recliner post treatment. c/o pain in (L) side of face, 3/10 Mental Status Patient Orientation: Person, Place, Time, Situation Transfers Functional [place] Measure 0=Not Assessed/NA 4=Minimal Assistance 1=Total Assistance 5=Supervision or Setup 2=Maximal Assistance 6=Modified [place] 3=Moderate Assistance 7=Complete IndependenceIRFPAI Quality Coding Scale 6 Independent with activity with or without an assistive device 5 Patient requires set up or clean up by helper. Patient completes activity by themselves 4 Supervision or touching assist (CGA). [place] provide cues , steadying assist 3 The helper provides less than half the effort to complete the activity 2 The helper provides more than half the effort to complete the activity 1 Dependent. The helper does all the effort to complete an activity 7 Patient refused to complete or attempt activity 9 The patient did not perform the activity before the current illness or injury 88 Not attempted due to Medical conditions or safety concerns Supine to/from Sit: 4 Sit to/from Stand: 3 Sit to Stand (QC): 3 Chair/Xfo-ff-Palql Xfer(QC): 3 Bed to/from Chair: 3 Weight Bearing Weight Bearing/Tolerated Weight Bearing/Tolerated Gait Training Does the Patient Walk?: No and Walking Goal IS indicated Wheelchair Training Does the Pt Use a Wheelchair?: Yes Wheelchair (FIM): 4 Wheelchair Distance: 9=770-34 ft Distance: 100 Wheelchair Level of Assist: 4 Wheel 50 ft with 2 turns (QC): 4 Type of Wheelchair: Manual Exercises NuStep Minutes: 10 NuStep Workload: 5 Treatments TFR training with [facility] bed->WCH<->NuStep and WCH->recliner with mod A x 1. VCS for safety, close guarding of (B) knees. NuStep x 10' for activity tolerance, (B ) UE/LE integration, and functional strengthening. Returned to sitting up in recliner with all needs met. Assessment Current Status: Good Progress Pt tolerated well. VCS for safety and to prepare for transfer but no episode of LOB or knee buckling this date. PT Short Term Goals Short Term Goals Time Frame: Feb 14, 2018 Transfers (B,C,W/C) (FIM): 5 Gait (FIM): 4 Distance (FIM): 3=150 ft Gait Distance Comment: 150ft with FWW Gait Level of Assist: 4 Gait Assistive Device: FWW Wheelchair Distance: 150'x2 PT Mold Cleaner Goals Mold Cleaner Goals PT Mold Cleaner Goals Time Frame: Feb 28, 2018 Transfers (B,C,W/C) (FIM): 6 Sit to Lying (QC): 6 Lying-Sitting on Side/Bed(QC): 6 Sit to Stand (QC): 6 Rollin Roll Left to Right (QC): 6 Chair/Dmu-zc-Odeje Xfer(QC): 6 Car Transfer (QC): 4 Does the Patient Walk: Yes Gait (FIM): 5 Gait distance (FIM): 3=546-79 ft Distance: 50 Walk 10 feet (QC): 6 Walk 10ft-Uneven Surface(QC): 6 Walk 50ft with 2 Turns (QC): 5 Walk 150 ft (QC): 5 Gait Level of Assist: 6 Gait Assistive Device: FWW Stairs (FIM): 3 # of Steps: 5 1 Step (curb) (QC): 5 4 Steps (QC): 4 12 Steps (QC): 88 Picking up an Object (QC): 2 PT Plan Problem List Problem List: Activity Tolerance, Functional Strength, Safety, Balance, Gait, Transfer, Bed Mobility Treatment/Plan Treatment Plan: Continue Plan of Care Treatment Plan: Bed Mobility, Concurrent Therapy, Education, Functional Activity Juan José, Functional Strength, Group Therapy, Gait, Safety, Therapeutic Exercise, Transfers Treatment Duration: Feb 28, 2018 Frequency: At least 5 of 7 days/Wk (IRF) Estimated Hrs Per Day: 1.5 hours per day Patient and/or Family Agrees t: Yes Safety Risks/Education Patient Education: Transfer Techniques Teaching Recipient: Patient Teaching Methods: Demonstration, Discussion Response to Teaching: Verbalize Understanding, Return Demonstration, Reinforcement Needed Time/GCodes Time In: 0950 Time Out: 1015 Total Billed Treatment Time: 25 Total Billed Treatment 1, FA x 15', Ex x 10' G Codes Necessary: TRACY Robins DPT Feb 21, 2018 11:51
--- NOTE | 2018-02-21 14:06 | Progress Note-Standard ---
Standard Progress Note Progress Notes/Assess & Plan Date Seen 02/21/18 Time Seen by Provider: 12:00 Assess & Plan/Chief Complaint OB going to the alf on Friday since he does not have recovery potential for inpatient rehabilitation Patient's sleeping on left side with C Pap machine AFVSS, sleeping RRR, CTAB No edema Left HP associated with action tremors-repeat CT appears unchanged Mild cognitive deficit S/p Left crani and temporal resection for seizures DM-controlled HTN CAD s/p MO CKD DC to [facility] Friday Labs Laboratory Tests 02/20/18 05:17 ALFIE GUEVARA DO Feb 21, 2018 14:06
[2018-02-21 17:59] VITALS: BP 100/61
[2018-02-21] MEDS: MIRTAZAPINE 15 MG (REMERON) TAB PO SCH (20:46)
[2018-02-21] MEDS: ATORVASTATIN 20 MG (LIPITOR) TABLET PO SCH (20:46)
[2018-02-21] MEDS: ERYTHROMYCIN OPHTH OINT 1 GM (SINGLE USE) TUBE OP SCH (20:46)
[2018-02-21] MEDS: LIDOCAINE PATCH REMOVAL TP SCH (20:48)
[2018-02-22 05:11] VITALS: BP 110/57
[2018-02-22] MEDS: inSUlin (REGULAR) HUMAN 1 UNIT/0.01 ML (CHARGE PER UNIT) SC SCH ×4 (06:28→21:46)
[2018-02-22] MEDS: GABAPENTIN 400 MG (NEURONTIN) CAP PO SCH ×3 (06:30→20:29)
[2018-02-22] MEDS: PANTOPRAZOLE 20 MG TABLET (PROTONIX) PO SCH (06:30)
[2018-02-22] MEDS: GLIMEPIRIDE 2 MG (AMARYL) TAB PO SCH ×2 (06:30→16:15)
[2018-02-22] MEDS: LINAGLIPTIN (TRADJENTA) 5 MG TABLET PO SCH (06:30)
[2018-02-22] MEDS: TORSEMIDE 20 MG (DEMADEX) TAB PO SCH (09:39)
[2018-02-22] MEDS: SERTRALINE 100 MG (ZOLOFT) TAB PO SCH (09:40)
[2018-02-22] MEDS: FINASTERIDE (PROSCAR) 5 MG TAB PO SCH (09:40)
[2018-02-22] MEDS: LORATADINE (CLARITIN) 10 MG TAB PO SCH (09:40)
[2018-02-22] MEDS: BACLOFEN 10 MG (LIORESAL) TAB PO SCH ×3 (09:40→20:28)
[2018-02-22] MEDS: ALLOPURINOL 100 MG (ZYLOPRIM) TAB PO SCH (09:40)
[2018-02-22] MEDS: LIDOCAINE (LIDODERM) 5% PATCH TOP SCH (09:41)
[2018-02-22] MEDS: ENOXAPARIN 40 MG/0.4 ML (LOVENOX) SYR SC SCH (09:41)
[2018-02-22] MEDS: ARTIFICAL TEARS 0.4 ML UNIT DOSE (REFRESH PLUS) OU SCH ×4 (09:41→20:29)
[2018-02-22] MEDS: PHENYTOIN 100 MG (DILANTIN) CAP PO SCH (09:41)
[2018-02-22] MEDS: DOCUSATE SODIUM 100 MG (COLACE) CAP PO SCH ×2 (09:45→20:30)
[2018-02-22] MEDS: SENNA W/DOCUSATE (SENOKOT S) TABLET PO SCH ×2 (09:45→20:30)
[2018-02-22] MEDS: lisINopril 10 MG (PRINIVIL) TABLET PO SCH (09:46)
[2018-02-22] MEDS: ATENOLOL 50 MG (TENORMIN) TAB PO SCH (09:46)
[2018-02-22] MEDS: amLODIPine 2.5MG (NORVASC) TAB PO SCH (09:46)
[2018-02-22 09:47] VITALS: BP 119/70
[2018-02-22] MEDS: TRIAMCINOLONE 0.1% CR (KENALOG) 15 GM TUBE TOP SCH ×3 (09:47→20:29)
--- NOTE | 2018-02-22 13:37 | Progress Note-Standard ---
Standard Progress Note Progress Notes/Assess & Plan Date Seen 02/22/18 Time Seen by Provider: 12:30 Assess & Plan/Chief Complaint Going to the [facility] halfway on Friday since he does not have recovery potential for inpatient rehabilitation Patient denies any pain issues Use his sleep apnea machine regularly Bowels are moving AFVSS, awake, alert, pleasant RRR, CTAB No edema Left HP associated with action tremors-repeat CT appears unchanged Mild cognitive deficit S/p Left crani and temporal resection for seizures DM-controlled HTN CAD s/p [place] CKD DC to NH Friday ALFIE GUEVARA DO Feb 22, 2018 13:37
[2018-02-22 17:54] VITALS: BP 118/69
[2018-02-22] MEDS: ATORVASTATIN 20 MG (LIPITOR) TABLET PO SCH (20:28)
[2018-02-22] MEDS: MIRTAZAPINE 15 MG (REMERON) TAB PO SCH (20:28)
[2018-02-22] MEDS: ERYTHROMYCIN OPHTH OINT 1 GM (SINGLE USE) TUBE OP SCH (20:29)
[2018-02-22] MEDS: LIDOCAINE PATCH REMOVAL TP SCH (20:30)
[2018-02-23 05:38] VITALS: BP 95/58
[2018-02-23] MEDS: inSUlin (REGULAR) HUMAN 1 UNIT/0.01 ML (CHARGE PER UNIT) SC SCH ×2 (05:39→11:34)
[2018-02-23] MEDS: LINAGLIPTIN (TRADJENTA) 5 MG TABLET PO SCH (06:27)
[2018-02-23] MEDS: GLIMEPIRIDE 2 MG (AMARYL) TAB PO SCH (06:27)
[2018-02-23] MEDS: PANTOPRAZOLE 20 MG TABLET (PROTONIX) PO SCH (06:27)
[2018-02-23] MEDS: GABAPENTIN 400 MG (NEURONTIN) CAP PO SCH (06:27)
--- NOTE | 2018-02-23 08:29 | Progress Note (SOAP) ---
Subjective Time Seen by Provider: 08:25 Subjective/Events-last exam patient to be discharged today.. patient is 2 assist. [facility] Objective Exam Vital Signs Date Time Temp Pulse Resp B/P (MAP) Pulse Ox O2 Delivery O2 Flow Rate FiO2 02/23/18 05:38 97.7 58 18 95/58 (70) 94 NIV CPAP 02/22/18 23:50 NIV CPAP 2.00 02/22/18 20:55 Room Air 02/22/18 17:54 98.1 61 18 118/69 (85) 98 Room Air 02/22/18 09:59 Room Air 02/22/18 09:47 119/70 (86) 62 I & O 02/23/18 06:59 Intake Total 1550 ml Output Total 1800 ml Balance -250 ml Capillary Refill : General Appearance: No Apparent Distress, WD/WN HEENT: Normal ENT Inspection Neck: Normal Inspection Results Lab Laboratory Tests 02/22/18 10:43: Glucometer 110 02/22/18 16:01: Glucometer 175H 02/22/18 20:31: Glucometer 153H 02/23/18 05:27: Glucometer 135H Assessment/Plan Assessment/Plan Assess & Plan/Chief Complaint Weakness left side of body. Craniotomy. History of seizures. Hypertension history. Weakness left side of body. Craniotomy. History of seizures. History of hypertension. Renal insufficiency to monitor her . 02/17/18. Weakness left side of body. Craniotomy. History of seizures. Hypertension. Renal insufficiency GFR 25. . 02/18/18. Weakness left side of body. Craniotomy. History of seizure. Hypertension. Renal insufficiency GFR 30 today` Patient swallowing better. . 02/19/18. Weakness left side of body. Renal insufficiency 43 much better. History of seizure. Patient worried about swollen left eye have Botox. . 02/20/18. Weakness left side of body. Renal insufficiency GFR 46 better. History of seizure. . . weakness left side of body. Renal insufficiency. History of seizure. [facility] be [facility] Clinical Quality Measures DVT/VTE Risk/Contraindication: Risk Factor Score Per Nursin RFS Level Per Nursing on Admit: 4+=Very High DARCY TORRES DO Feb 23, 2018 08:29
--- NOTE | 2018-02-23 08:55 | Physical Therapy Daily Note ---
PT Daily Note-Current Subjective Patient in bed pre tx, agrees to PT, has 4/10 pain in the left half of his face. Nursing aware of pain. Appearance Patient in wheelchair at bedside post tx with nurse call, phone, tray, all needs met. Mental Status Patient Orientation: Person, Place, Situation Transfers Functional [place] Measure 0=Not Assessed/NA 4=Minimal Assistance 1=Total Assistance 5=Supervision or Setup 2=Maximal Assistance 6=Modified [place] 3=Moderate Assistance 7=Complete IndependenceIRFPAI Quality Coding Scale 6 Independent with activity with or without an assistive device 5 Patient requires set up or clean up by helper. Patient completes activity by themselves 4 Supervision or touching assist (CGA). [place] provide cues , steadying assist 3 The helper provides less than half the effort to complete the activity 2 The helper provides more than half the effort to complete the activity 1 Dependent. The helper does all the effort to complete an activity 7 Patient refused to complete or attempt activity 9 The patient did not perform the activity before the current illness or injury 88 Not attempted due to Medical conditions or safety concerns Transfers (B, C, W/C) (FIM): 3 Scootin Rollin Roll Left to Right (QC): 3 Supine to/from Sit: 4 Sit to/from Stand: 3 Sit to Lying (QC): 3 Sit to Stand (QC): 2 Chair/Vyq-eq-Vzvfi Xfer(QC): 2 Bed to/from Chair: 3 Car Transfer (QC): 2 Patient performs bed mobility with min assist, sit to stand and stand pivot transfers with mod assist, car transfer with mod assist. Careful knee blocking and positioning have to be performed due to knee buckling. Weight Bearing Weight Bearing/Tolerated Weight Bearing/Tolerated Gait Training Gait (FIM): 2 Distance: 50' Walk 10 feet (QC): 2 Walk 50 ft with 2 Turns(QC): 2 Walk 150 ft (QC): 88 Walking 10ft/uneven surface-QC: 88 Gait Level of Assist: 3 Gait Persons Needed: 2 Gait Assistive Device: FWW Patient can ambulate 50' with a rolling walker with mod assist of 2 and the use of a left knee immobilizer. Patient's right knee ena without warning and his trunk control is poor and needs mod assist to keep balance with abrupt trunk movement and knee buckling. Wheelchair Training Does the Pt Use a Wheelchair?: Yes Wheelchair (FIM): 6 Distance: 200'x2 Wheel 50 ft with 2 turns (QC): 6 Wheel 150 ft (QC): 6 Type of Wheelchair: Manual Exercises NuStep Minutes: 15 NuStep Workload: 5 Treatments bed mobility and transfers, ambulation, functional strengthening, wheelchair mobility Assessment Current Status: Poor Progress no change in mobility PT Short Term Goals Short Term Goals Time Frame: Feb 14, 2018 Transfers (B,C,W/C) (FIM): 5 Gait (FIM): 4 Distance (FIM): 3=150 ft Gait Distance Comment: 150ft with FWW Gait Level of Assist: 4 Gait Assistive Device: FWW Wheelchair Distance: 100 PT Spanish Medical Interpreter Goals Spanish Medical Interpreter Goals PT Spanish Medical Interpreter Goals Time Frame: Feb 28, 2018 Transfers (B,C,W/C) (FIM): 6 Sit to Lying (QC): 6 Lying-Sitting on Side/Bed(QC): 6 Sit to Stand (QC): 6 Rollin (met) Roll Left to Right (QC): 6 Chair/Sok-pr-Svczb Xfer(QC): 6 Car Transfer (QC): 4 Does the Patient Walk: Yes Gait (FIM): 5 Gait distance (FIM): 4=453-71 ft Distance: 50 Walk 10 feet (QC): 6 Walk 10ft-Uneven Surface(QC): 6 Walk 50ft with 2 Turns (QC): 5 Walk 150 ft (QC): 5 Gait Level of Assist: 6 Gait Assistive Device: FWW Stairs (FIM): 3 # of Steps: 5 1 Step (curb) (QC): 5 4 Steps (QC): 4 12 Steps (QC): 88 Picking up an Object (QC): 2 PT Plan Problem List Problem List: Activity Tolerance, Functional Strength, Safety, Balance, Gait, Transfer, Bed Mobility, ROM Treatment/Plan Treatment Plan: Continue Plan of Care Treatment Plan: Bed Mobility, Concurrent Therapy, Education, Functional Activity Juan José, Functional Strength, Group Therapy, Gait, Safety, Therapeutic Exercise, Transfers Treatment Duration: Feb 28, 2018 Frequency: At least 5 of 7 days/Wk (IRF) Estimated Hrs Per Day: 1.5 hours per day Patient and/or Family Agrees t: Yes Safety Risks/Education Patient Education: Gait Training, Transfer Techniques, Correct Positioning, W/ C Management, Safety Issues Teaching Recipient: Patient Teaching Methods: Demonstration, Discussion Response to Teaching: Reinforcement Needed Time/GCodes Time In: 804 Time Out: 0850 Total Billed Treatment Time: 45 Total Billed Treatment 1 visit GT 15' FA 15' EX 15' ALESHIA PETERSEN PT Feb 23, 2018 08:55
[2018-02-23] MEDS: FINASTERIDE (PROSCAR) 5 MG TAB PO SCH (09:15)
[2018-02-23] MEDS: ARTIFICAL TEARS 0.4 ML UNIT DOSE (REFRESH PLUS) OU SCH (09:15)
[2018-02-23] MEDS: PHENYTOIN 100 MG (DILANTIN) CAP PO SCH (09:15)
[2018-02-23] MEDS: LIDOCAINE (LIDODERM) 5% PATCH TOP SCH (09:15)
[2018-02-23] MEDS: LORATADINE (CLARITIN) 10 MG TAB PO SCH (09:16)
[2018-02-23] MEDS: SERTRALINE 100 MG (ZOLOFT) TAB PO SCH (09:16)
[2018-02-23] MEDS: ALLOPURINOL 100 MG (ZYLOPRIM) TAB PO SCH (09:16)
[2018-02-23] MEDS: DOCUSATE SODIUM 100 MG (COLACE) CAP PO SCH ×2 (09:16→09:33)
[2018-02-23] MEDS: SENNA W/DOCUSATE (SENOKOT S) TABLET PO SCH ×2 (09:16→09:33)
[2018-02-23] MEDS: BACLOFEN 10 MG (LIORESAL) TAB PO SCH (09:16)
[2018-02-23] MEDS: ENOXAPARIN 40 MG/0.4 ML (LOVENOX) SYR SC SCH (09:17)
[2018-02-23 09:21] VITALS: BP 116/76
[2018-02-23] MEDS: HYDROcodone/APAP 5 MG/325 MG (LORTAB) TAB PO PRN (09:27)
[2018-02-23] MEDS: TORSEMIDE 20 MG (DEMADEX) TAB PO SCH (09:28)
[2018-02-23] MEDS: lisINopril 10 MG (PRINIVIL) TABLET PO SCH (09:28)
[2018-02-23] MEDS: ATENOLOL 50 MG (TENORMIN) TAB PO SCH (09:28)
[2018-02-23] MEDS: amLODIPine 2.5MG (NORVASC) TAB PO SCH (09:28)
--- NOTE | 2018-02-23 09:41 | Speech Therapy Daily Note ---
Speech Daily Progress Note Subjective Date Seen by Provider: Feb 23, 2018 Time Seen by Provider: 09:00 The patient was seated upright in wheelchair upon entrance. The patient greeted the clinician and was agreeable to participation in the cognitive treatment session. Objective The patient reported some anxiety regarding his transfer to [facility] on this date. In attempts to reduce anxiety, speech pathology discussed with the patient safety concerns and barriers. The patient stated he needs to remember to "ask for help" and "wait for them" to assist him with transfers. The patient was unable to name additional safety concerns, therefore, speech pathology reminded him of his insulin needs, as well as, monitoring his sugars through his diet. The clinician stressed the importance of transfer safety, as well as, reduced impulsivity. Orientation: The patient was independently oriented to self, location, transfer location, month, day of week, date, and year. Assessment Assessment Current Status: Good Progress Treatment Plan Continue Plan of Care Communication Comprehension: 4 Expression: 4 Social Cognition Social Interaction: 5 Problem Solvin Memory: 3 Speech Short Term Goals Short Term Goals Short Term Goals 1. The patient will demonstrate hyperfunctional voice exercises with 80% accuracy and mild clinician cueing. 2. The patient will demonstrate and recall three functional memory strategies for use at home, independently. Time Frame-STG: One Week Speech Senior Care Goals Senior Care Goals 1. The patient will demonstrated improved expressive communication and cognitive skill for increased function and safety in the least restrictive setting. Time Frame: Three Weeks Comprehension: 5 (NOT MET) Expression: 5 (NOT MET) Social Interaction: 5 (MET) Problem Solvin (NOT MET) Memory: 5 (NOT MET) Speech-Plan Treatment Plan Speech Therapy Treatment Plan: Discontinue ST Skilled speech pathology will discharge at this time due to patient discharge to a skilled facility. Treatment Duration: Feb 27, 2018 Frequency: Modified Program (IRF) (Four to five times per week.) Estimated Hrs Per Day: .5 hour per day Rehab Potential: Fair Safety Risks/Education Teaching Recipient: Patient Teaching Methods: Discussion Response to Teaching: Verbalize Understanding Education Topics Provided: Safety Barriers, Increased Safety Awareness Time Speech Therapy Time In: 09:00 Speech Therapy Time Out: 09:15 Total Billed Time: 15 Billed Treatment Time 1FANI ELIZABETH ST Feb 23, 2018 09:41
--- NOTE | 2018-02-23 09:44 | Therapy Team Discharge Summary ---
Therapy Discharge Summary Discharge Recommendations Date of Discharge Therapy D/C Recommendations: 24 hr Supervision Occupational Therapy Decreased Activ Tolerance, Dependent Transfers, Impaired I ADL's, Impaired Self- Care Skills Speech-Language Pathology The patient was admitted to [facility] with a diagnosis of debility. Upon admission, the patient demonstrated reduced awareness and safety problem solving, as well as, poor recall. Skilled speech pathology focused on functional memory strategies, functional safety problem solving, and increased awareness of barriers. The patient demonstrated fair accuracy, however, continues to display increased impulsivity with transfers and mobility. The patient did not meet comprehension, memory, or problem solving FIMS placed by this clinician. At this time, the patient will discharge to a skilled facility. Continued skilled speech pathology is not warranted at this time. PT [facility] Goals Asphalt Still Operator Goals PT [facility] Goals Time Frame: Feb 28, 2018 Transfers (B,C,W/C) (FIM): 6 Roll Left to Right (QC): 6 Sit to Lying (QC): 6 Lying-Sitting on Side/Bed(QC): 6 Sit to Stand (QC): 6 Chair/Kzb-pj-Uqafw Xfer(QC): 6 Car Transfer (QC): 4 Does the Patient Walk: Yes Gait (FIM): 5 Gait distance (FIM): 3=556-96 ft Distance: 50 Walk 10 feet (QC): 6 Walk 10ft-Uneven Surface(QC): 6 Walk 50ft with 2 Turns (QC): 5 Walk 150 ft (QC): 5 Gait Level of Assist: 6 Gait Assistive Device: FWW Stairs (FIM): 3 # of Steps: 5 1 Step (curb) (QC): 5 4 Steps (QC): 4 12 Steps (QC): 88 Picking up an Object (QC): 2 OT [facility] Goals [facility] Goals Time Frame: Feb 21, 2018 Eating (FIM): 6 Eating (QC): 6 Oral Hygiene (QC): 6 Grooming(FIM): 6 Bathing(FIM): 6 Shower/Bathe Self (QC): 6 Upper Body Dressing(FIM): 6 Upper Body Dressing (QC): 6 Lower Body Dressing(FIM): 6 Lower Body Dressing (QC): 6 On/Off Footwear (QC): 6 Toileting(FIM): 6 Toileting Hygiene (QC): 6 Transfers (B,C,W/C) (FIM): 6 Toilet/Commode Transfer(FIM): 6 Toilet/Commode Transfer (QC): 6 Comprehension(FIM): 5 (NOT MET) Expression (FIM): 5 (NOT MET) Social Interaction(FIM): 5 (MET) Problem Solving(FIM): 5 (NOT MET) Memory(FIM): 5 (NOT MET) 1=Demonstrate adherence to instructed precautions during ADL tasks. 2=Patient will verbalize/demonstrate understanding of assistive devices/ modifications for ADL. 3=Patient will improve strength/tolerance for activity to enable patient to perform ADL's. Speech [facility] Goals Asphalt Still Operator Goals 1. The patient will demonstrated improved expressive communication and cognitive skill for increased function and safety in the least restrictive setting. Time Frame: Three Weeks Comprehension: 5 (NOT MET) Expression: 5 (NOT MET) Social Interaction: 5 (MET) Problem Solvin (NOT MET) Memory: 5 (NOT MET) SHAJI JONAS Feb 23, 2018 09:44
[2018-02-23] MEDS: TRIAMCINOLONE 0.1% CR (KENALOG) 15 GM TUBE TOP SCH (09:45)
--- NOTE | 2018-02-23 10:25 | Occupational Ther Daily Note ---
OT Current Status-Daily Note Subjective No pain reported. Appearance Pt. up in wheelchair. Agrees to shower. Mental Status/Objective Patient Orientation: Person, Place, Time Functional [place] Measure 0=Not Assessed/NA 4=Minimal Assistance 1=Total Assistance 5=Supervision or Setup 2=Maximal Assistance 6=Modified [place] 3=Moderate Assistance 7=Complete [place] ADL-Treatment Functional [place] Measure 0=Not Assessed/NA 4=Minimal Assistance 1=Total Assistance 5=Supervision or Setup 2=Maximal Assistance 6=Modified [place] 3=Moderate Assistance 7=Complete IndependenceIRFPAI Quality Coding Scale 6 Independent with activity with or without an assistive device 5 Patient requires set up or clean up by helper. Patient completes activity by themselves 4 Supervision or touching assist (CGA). [place] provide cues , steadying assist 3 The helper provides less than half the effort to complete the activity 2 The helper provides more than half the effort to complete the activity 1 Dependent. The helper does all the effort to complete an activity 7 Patient refused to complete or attempt activity 9 The patient did not perform the activity before the current illness or injury 88 Not attempted due to Medical conditions or safety concerns Grooming (FIM): 5 Bathing (FIM): 4 (Min assist on shower chair to cleanse rear ahsan area adequately.) Shower/Bathe Self (QC): 4 Upper Body (FIM): 5 (Set up to doff/don shirt.) Upper Body Dressing (QC): 5 Lower Body Dressing (FIM): 3 (Pt. is able to don socks with sock aide with min assist. Pt. is able to don underwear and pants over his feet while seated. OT assists with shoes. Pt. requires assist to pull pants over hips in stance.) Lower Body Dressing (QC): 3 On/Off Footwear (QC): 3 Transfers (B, C, W/C) (FIM): 3 (Mod assist overall to stand pivot to chair from wheelchair.) Shower Transfer(FIM): 1 (Pt. transfers to shower chair, and then OT rolls shower chair into shower.) Education OT Patient Education: Correct positioning, Modified ADL techniques, Progress toward Goal/Update tx plan, Purpose of tx/functional activities, Reviewed precautions, Rehab process, Transfer techniques Teaching Recipient: Patient Teaching Methods: Demonstration Response to Teaching: Verbalize Understanding, Return Demonstration OT Short Term Goals Short Term Goals Time Frame: Feb 14, 2018 Eating(FIM): 6 Grooming(FIM): 6 Bathing(FIM): 5 Upper Body Dressing(FIM): 5 Lower Body Dressing(FIM): 5 Toileting(FIM): 5 Transfers (B,C,W/C) (FIM): 5 Toilet/Commode Transfer(FIM): 5 Shower Transfer(FIM): 4 Additional Short Term Goals: 1-Demonstrate ADL Tasks, 2-Verbalize Understanding , 3-ImproveStrength/Juan José 1=Demonstrate adherence to instructed precautions during ADL tasks. 2=Patient will verbalize/demonstrate understanding of assistive devices/ modifications for ADL. 3=Patient will improve strength/tolerance for activity to enable patient to perform ADL's. OT Lusterer Goals Lusterer Goals Time Frame: Feb 21, 2018 Eating (FIM): 6 Eating (QC): 6 Groomin Oral Hygiene (QC): 6 Bathing(FIM): 6 Shower/Bathe Self (QC): 6 Upper Body Dressing(FIM): 6 Upper Body Dressing (QC): 6 Lower Body Dressing(FIM): 6 Lower Body Dressing (QC): 6 On/Off Footwear (QC): 6 Toileting(FIM): 6 Toileting Hygiene (QC): 6 Transfers (B,C,W/C) (FIM): 6 Toilet/Commode Transfer(FIM): 6 Toilet/Commode Transfer (QC): 6 Comprehension(FIM): 5 (NOT MET) Expression (FIM): 5 (NOT MET) Social Interaction(FIM): 5 (MET) Problem Solving(FIM): 5 (NOT MET) Memory(FIM): 5 (NOT MET) 1=Demonstrate adherence to instructed precautions during ADL tasks. 2=Patient will verbalize/demonstrate understanding of assistive devices/ modifications for ADL. 3=Patient will improve strength/tolerance for activity to enable patient to perform ADL's. OT Education/Plan Problem List/Assessment Assessment: Decreased Activ Tolerance, Dependent Transfers, Impaired I ADL's, Impaired Self-Care Skills Discharge Recommendations Plan/Recommendations: Continue POC Therapy D/C Recommendations: 24 hr Supervision, [facility] (TCU/NH) Target Placement Pt is discharging today to [place] for continued skilled treatment. Treatment Plan/Plan of Care Treatment,Training & Education: Yes Patient would benefit from OT for education, treatment and training to promote independence in ADL's, mobility, safety and/or upper extremity function for ADL' s. Plan of Care: ADL Retraining, Functional Mobility, Group Exercise/Act as Ind, UE Funct Exercise/Act Treatment Duration: Feb 21, 2018 Frequency: At least 5 of 7 days/Wk (IRF) Estimated Hrs Per Day: 1.5 hours per day Agreement: Yes Rehab Potential: Fair Time/GCodes Start Time: 09:15 Stop Time: 09:55 Total Time Billed (hr/min): 40 Billed Treatment Time 1, ADL x 3 DAGMAR MURGUIA OT Feb 23, 2018 10:24
--- NOTE | 2018-02-23 10:29 | Therapy Team Discharge Summary ---
Therapy Discharge Summary Discharge Recommendations Date of Discharge 02-23-18 Therapy D/C Recommendations: 24 hr Supervision, [facility] (TCU/NH) Occupational Therapy Pt. has been seen by occupational therapy to increase overall strength and endurance. Pt. presented with weakness, and increased weakness on left side. Pt. has made progress, but also continued to have weakness and difficulty opening packages, transferring, and completing ADL tasks. Pt. is discharging to [facility] for continued skilled care. Pt. would benefit from continued OT. All needs met in this setting. Equipment needs to be determined in NH setting. Decreased Activ Tolerance, Dependent Transfers, Impaired I ADL's, Impaired Self- Care Skills PT Mold Cleaner Goals Mold Cleaner Goals PT Mold Cleaner Goals Time Frame: Feb 28, 2018 Transfers (B,C,W/C) (FIM): 6 Roll Left to Right (QC): 6 Sit to Lying (QC): 6 Lying-Sitting on Side/Bed(QC): 6 Sit to Stand (QC): 6 Chair/Pdf-xj-Innlg Xfer(QC): 6 Car Transfer (QC): 4 Does the Patient Walk: Yes Gait (FIM): 5 Gait distance (FIM): 8=914-51 ft Distance: 50 Walk 10 feet (QC): 6 Walk 10ft-Uneven Surface(QC): 6 Walk 50ft with 2 Turns (QC): 5 Walk 150 ft (QC): 5 Gait Level of Assist: 6 Gait Assistive Device: FWW Stairs (FIM): 3 # of Steps: 5 1 Step (curb) (QC): 5 4 Steps (QC): 4 12 Steps (QC): 88 Picking up an Object (QC): 2 OT Mold Cleaner Goals [facility] Goals Time Frame: Feb 21, 2018 Eating (FIM): 6 (not met) Eating (QC): 6 (not met) Oral Hygiene (QC): 6 (not met) Grooming(FIM): 6 (not met) Bathing(FIM): 6 (not met) Shower/Bathe Self (QC): 6 (not met) Upper Body Dressing(FIM): 6 (not met) Upper Body Dressing (QC): 6 (not met) Lower Body Dressing(FIM): 6 (not met) Lower Body Dressing (QC): 6 (not met) On/Off Footwear (QC): 6 (not met) Toileting(FIM): 6 (not met) Toileting Hygiene (QC): 6 (not met) Transfers (B,C,W/C) (FIM): 6 (not met) Toilet/Commode Transfer(FIM): 6 (not met) Toilet/Commode Transfer (QC): 6 (not met) Comprehension(FIM): 5 (NOT MET) Expression (FIM): 5 (NOT MET) Social Interaction(FIM): 5 (MET) Problem Solving(FIM): 5 (NOT MET) Memory(FIM): 5 (NOT MET) 1=Demonstrate adherence to instructed precautions during ADL tasks. 2=Patient will verbalize/demonstrate understanding of assistive devices/ modifications for ADL. 3=Patient will improve strength/tolerance for activity to enable patient to perform ADL's. Speech [facility] Goals Mold Cleaner Goals 1. The patient will demonstrated improved expressive communication and cognitive skill for increased function and safety in the least restrictive setting. Time Frame: Three Weeks Comprehension: 5 (NOT MET) Expression: 5 (NOT MET) Social Interaction: 5 (MET) Problem Solvin (NOT MET) Memory: 5 (NOT MET) DAGMAR MURGUIA OT Feb 23, 2018 10:29
--- NOTE | 2018-02-23 10:58 | Therapy Team Discharge Summary ---
Therapy Discharge Summary Discharge Recommendations Date of Discharge Therapy D/C Recommendations: 24 hr Supervision, Nursing Home (TCU/NH) Physical Therapy Patient came to rehab with stroke-like symptoms. Upon evaluation patient performed bed mobility with mod assist, sit to stand with min assist, and transfers with mod assist, was not safe to perform a car transfer, and propelled a manual wheelchair 150' with SBA. Patient has been performing bed mobility and transfer training, balance and endurance training, functional strengthening, gait training, and education. 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 Now, patient performs bed mobility with min assist, sit to stand and stand pivot transfers with mod assist , car transfer with mod assist, ambulates 50' with a rolling walker with mod assist of 2 and the use of a left knee immobilizer. Patient's right knee ena without warning and his trunk control is poor and needs mod assist to keep balance with abrupt trunk movement and knee buckling, and propels a manual wheelchair 200' with mod I. Patient is discharging from this facility today and will be discharged from PT after completion of his PT treatments today. Occupational Therapy Decreased Activ Tolerance, Dependent Transfers, Impaired I ADL's, Impaired Self- Care Skills PT Insurance Job Titles Goals Insurance Job Titles Goals PT [facility] Goals Time Frame: Feb 28, 2018 Transfers (B,C,W/C) (FIM): 6 Roll Left to Right (QC): 6 Sit to Lying (QC): 6 Lying-Sitting on Side/Bed(QC): 6 Sit to Stand (QC): 6 Chair/Tri-ep-Duzto Xfer(QC): 6 Car Transfer (QC): 4 Does the Patient Walk: Yes Gait (FIM): 5 Gait distance (FIM): 5=289-67 ft Distance: 50 Walk 10 feet (QC): 6 Walk 10ft-Uneven Surface(QC): 6 Walk 50ft with 2 Turns (QC): 5 Walk 150 ft (QC): 5 Gait Level of Assist: 6 Gait Assistive Device: FWW Stairs (FIM): 3 # of Steps: 5 1 Step (curb) (QC): 5 4 Steps (QC): 4 12 Steps (QC): 88 Picking up an Object (QC): 2 OT [facility] Goals Insurance Job Titles Goals Time Frame: Feb 21, 2018 Eating (FIM): 6 (not met) Eating (QC): 6 (not met) Oral Hygiene (QC): 6 (not met) Grooming(FIM): 6 (not met) Bathing(FIM): 6 (not met) Shower/Bathe Self (QC): 6 (not met) Upper Body Dressing(FIM): 6 (not met) Upper Body Dressing (QC): 6 (not met) Lower Body Dressing(FIM): 6 (not met) Lower Body Dressing (QC): 6 (not met) On/Off Footwear (QC): 6 (not met) Toileting(FIM): 6 (not met) Toileting Hygiene (QC): 6 (not met) Transfers (B,C,W/C) (FIM): 6 (not met) Toilet/Commode Transfer(FIM): 6 (not met) Toilet/Commode Transfer (QC): 6 (not met) Comprehension(FIM): 5 (NOT MET) Expression (FIM): 5 (NOT MET) Social Interaction(FIM): 5 (MET) Problem Solving(FIM): 5 (NOT MET) Memory(FIM): 5 (NOT MET) 1=Demonstrate adherence to instructed precautions during ADL tasks. 2=Patient will verbalize/demonstrate understanding of assistive devices/ modifications for ADL. 3=Patient will improve strength/tolerance for activity to enable patient to perform ADL's. Speech Insurance Job Titles Goals Insurance Job Titles Goals 1. The patient will demonstrated improved expressive communication and cognitive skill for increased function and safety in the least restrictive setting. Time Frame: Three Weeks Comprehension: 5 (NOT MET) Expression: 5 (NOT MET) Social Interaction: 5 (MET) Problem Solvin (NOT MET) Memory: 5 (NOT MET) ALESHIA PETERSEN PT Feb 23, 2018 10:58
[2018-02-23 11:45] VITALS: BP 116/76
--- NOTE | 2018-02-23 19:26 | PM & R (SOAP) Progress Note ---
Subjective Time Seen by Provider: 12:00 Subjective/Events-last exam Patient discharged earlier today to local SNU for ongoing care and therapies Current meds reviewed Objective Exam Last Set of Vital Signs Vital Signs Date Time Temp Pulse Resp B/P (MAP) Pulse Ox O2 Delivery O2 Flow Rate FiO2 02/23/18 11:45 64 20 116/76 98 Room Air 02/23/18 09:21 96.4 02/22/18 23:50 2.00 Capillary Refill : I&O Intake and Output 02/23/18 00:00 Intake Total 2520 ml Output Total 1200 ml Balance 1320 ml Intake Oral 2520 ml Output Urine Total 1200 ml # Voids 3 # Bowel Movements 2 General: Alert, Oriented X3, Cooperative, No Acute Distress HEENT: Other (mild periorbital swelling) Neck: Supple, No JVD Lungs: Clear to Auscultation Heart: Regular Rate Abdomen: Normal Bowel Sounds Extremities: No Edema Neuro: Other (left HP mild cognitive deficict) Results Lab Laboratory Tests 02/20/18 20:30: Glucometer 155H 02/21/18 04:56: Glucometer 178H 02/21/18 11:18: Glucometer 252H 02/21/18 15:59: Glucometer 148H 02/21/18 19:45: Glucometer 212H 02/22/18 04:38: Glucometer 107 02/22/18 10:43: Glucometer 110 02/22/18 16:01: Glucometer 175H 02/22/18 20:31: Glucometer 153H 02/23/18 05:27: Glucometer 135H 02/23/18 11:29: Glucometer 217H Assessment/Plan Assessment 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 VALERIE BROWN MD Feb 23, 2018 19:26
== END 2018-02-23 11:45 | DRG 57 ==
PROVIDERS: ADMIT Physical Medicine & Rehabilitation; ATTEND Physical Medicine & Rehabilitation
DX: G81.92 Hemiplegia, unspecified affecting left dominant side (principal); H70.12 Chronic mastoiditis, left ear; H66.92 Otitis media, unspecified, left ear; H01.006 Unspecified blepharitis left eye, unspecified eyelid; H01.003 Unspecified blepharitis right eye, unspecified eyelid; H35.342 Macular cyst, hole, or pseudohole, left eye; H54.62 Unqualified visual loss, left eye, normal vision right eye; F41.9 Anxiety disorder, unspecified; Z66 Do not resuscitate; F32.9 Major depressive disorder, single episode, unspecified; G43.909 Migraine, unspecified, not intractable, without status migrainosus; E11.40 Type 2 diabetes mellitus with diabetic neuropathy, unspecified; I25.10 Atherosclerotic heart disease of native coronary artery without angina pectoris; N40.0 Benign prostatic hyperplasia without lower urinary tract symptoms; G47.33 Obstructive sleep apnea (adult) (pediatric); I12.9 Hypertensive chronic kidney disease with stage 1 through stage 4 chronic kidney disease, or unspecified chronic kidney disease; N18.9 Chronic kidney disease, unspecified; G31.84 Mild cognitive impairment of uncertain or unknown etiology; R25.1 Tremor, unspecified; I25.2 Old myocardial infarction
CPT/HCPCS: 36415; 70450; 80048; 80053; 80185; 82962; 83036; 85027

== ENCOUNTER 2018-05-02 11:14 | Observation (INO) | payer MEDICARE, MEDICAID ==
[~2018-05-02] VITALS: Ht 185.4 cm; Wt 127.6 kg
[2018-05-02] VITALS (8 sets, daily range): BP systolic 105–129; BP diastolic 57–75
[~2018-05-02 11:14] MED LIST changes: +ALLO100T PO; +AMLO2.5T PO; +ATEN100T PO; +ATOR20TA66 PO; +BACL10TA PO; +CARB1DRO OU; +DAPA10TA PO; +ERYT1OIN6 OP; +FINA5TAB6 PO; +GLIM2TAB PO; +HYDR-3812 PO; +IBUP-1773 PO; +LIDO700A45 TD; +LISI10TA2 PO; +LORA10TA7 PO; +MELO7.5T46 PO; +METF500T5 PO; +MIRT30TA6 PO; +Nitroglycerin SL; +OMEP20CA12 PO; +PHEN100C11 PO; +POTA20TA15 PO; +SENN-20 PO; +SERT100T8 PO; +SITA100T12 PO; +TORS20TA3 PO; +TR1C15 TOP
[2018-05-02] MEDS ORDERED: NS IV 500 ML 500 ML IV ONE (11:26)
[2018-05-02] MEDS ORDERED: FAMOTIDINE 20 MG (PEPCID) TABLET PO STA (11:26)
[2018-05-02] MEDS ORDERED: ASPIRIN 81 MG CHEW (CHILDREN'S ASA) PO ONE (11:30)
[2018-05-02] MEDS ORDERED: LIDOCAINE 2% VISCOUS 15 ML UDC PO ONE (11:30)
[2018-05-02] MEDS ORDERED: ANTACID SUSP 30 ML UDC (MYLANTA) PO ONE (11:30)
--- NOTE | 2018-05-02 11:36 | ED Chest Pain ---
General Chief Complaint: Chest Pain Stated Complaint: CHEST PAIN Source: patient, EMS, senior care records Exam Limitations: no limitations History of Present Illness Date Seen by Provider: May 02, 2018 Time Seen by Provider: 11:25 Initial Comments The patient presents to the ER by EMS with a chief complaint that he is coming from via [facility] with a chest pressure on his left chest and radiates to his left neck started sometime last night. He is not taking anything for it and thought it might go away. 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 He is not having any nausea but he is having some headache. He has no history of trauma or fall. He is not having a cough or shortness of breath. No fevers or chills. He is not having any sweats with the chest pressure. He has not been skipping any of his medications. He doesn't history of diabetes although he denies it but EMS reports that his blood sugar was over 300. He denies any diarrhea, constipation, dysuria. He did not take any nitroglycerin of his own at the senior care but EMS gave him a single dose of nitroglycerin on the route and his chest pain went from 3 out of 10 to a 3 out of 10 but he says it improved some. He has no history of smoking, thyroid disorder but he does have hypertension. He does not wear oxygen at home but was applied oxygen by nasal cannula per EMS. Sats were in the mid 90s on room air. He is currently known to Dr. Ayala, cardiology and Dr. Romero primary care. Allergies and Home Medications Allergies Coded Allergies: No Known Allergies (Verified Allergy, Unknown, 07/08/06) Home Medications Allopurinol 100 Mg Tablet, 100 MG PO DAILY, (Reported) Amlodipine Besylate 2.5 Mg Tablet, 2.5 MG PO DAILY Prescribed by: VALERIE BROWN on 02/20/181538 Atenolol 100 Mg Tablet, 100 MG PO DAILY, (Reported) Atorvastatin Calcium 20 Mg Tablet, 20 MG PO HS Prescribed by: VALERIE BROWN on 02/20/181538 Baclofen 10 Mg Tablet, 10 MG PO TID, (Reported) Carboxymethylcellulose Sodium 1 Each Droperette, 0 EACH OU UD PRN for DRY EYE Prescribed by: VALERIE BROWN on 02/20/181538 Carboxymethylcellulose Sodium 1 Each Droperette, 0 EACH OU QID Prescribed by: VALERIE BROWN on 02/20/181538 Erythromycin Base 1 Gm Oint...g., 0 GM OP HS Prescribed by: VALERIE BROWN on 02/20/181538 Finasteride 5 Mg Tablet, 5 MG PO DAILY, (Reported) Gabapentin 800 Mg Tablet, 800 MG PO Q8H, (Reported) Glimepiride 2 Mg Tablet, 2 MG PO BID, (Reported) Hydrocodone/Acetaminophen 1 Each Tablet, 1 TAB PO Q8H PRN for PAIN-MODERATE Prescribed by: VALERIE BROWN on 02/20/181538 Lidocaine 1 Each Adh..patch, 1 PATCH TD DAILY, (Reported) APPLY PATCH FOR 12 HOURS, THEN REMOVE FOR 12 HOURS BEFORE REPEATING Lisinopril 10 Mg Tablet, 10 MG PO DAILY, (Reported) Loratadine 10 Mg Tablet, 10 MG PO DAILY, (Reported) Mirtazapine 30 Mg Tablet, 45 MG PO HS, (Reported) TAKES 1 & 1/2 OF A (30 MG) TABLET Omeprazole 20 Mg Capsule.dr, 20 MG PO DAILY, (Reported) Phenytoin Sodium Extended 100 Mg Capsule, 300 MG PO 1200, (Reported) TAKES 3 (100 MG) CAPSULES Potassium Chloride 20 Meq Tab.er.prt, 20 MEQ PO 1200, (Reported) Sennosides/Docusate Sodium 1 Each Tablet, 1 EA PO BID Prescribed by: VALERIE BROWN on 02/20/181538 Sertraline HCl 100 Mg Tablet, 300 MG PO DAILY, (Reported) TAKES 3 (100 MG) TABLETS Sitagliptin Phosphate 100 Mg Tablet, 100 MG PO DAILY, (Reported) Torsemide 20 Mg Tablet, 20 MG PO BID, (Reported) Triamcinolone Acet 15 Gm Cr, 0 GM TOP TID Prescribed by: VALERIE BROWN on 02/20/181538 [Nitroglycerin] 0.4 MG BTL, 0 MG SL NEEDED PRN for CHEST PAIN Prescribed by: VALERIE BROWN on 02/20/181538 Patient Home Medication List Home Medication List Reviewed: Yes Review of Systems Constitutional: No chills, No diaphoresis EENTM: No Eye Pain, No Ear Pain Respiratory: Denies Cough, Denies Shortness of Air Cardiovascular: Denies Chest Pain, Denies Edema Gastrointestinal: Denies Abdomen Distended, Denies Abdominal Pain Genitourinary: Denies Burning, Denies Discharge Musculoskeletal: No back pain, No joint pain Skin: No pruritus, No rash Psychiatric/Neurological: Denies Headache, Denies Numbness, Denies Paresthesia Past Baquvzv-Axkdoz-Rdbmed Hx Patient Social History Alcohol Use: Denies Use Recreational Drug Use: No Smoking Status: Never a Smoker Recent Foreign Travel: No Contact w/Someone Who Travel: No Recent Hopitalizations: Yes Seasonal Allergies Seasonal Allergies: No Past Medical History Surgeries: Yes Respiratory: No Sleep Apnea Currently Using CPAP: Yes Cardiac: Yes Neurological: Yes (epilepsy) Reproductive Disorders: No Genitourinary: Yes Prostate Problems Gastrointestinal: No Musculoskeletal: Yes Arthritis Endocrine: No HEENT: Yes (chronic mastoiditis of left side, chronic otits media) Chronic Ear Infection Loss of Vision: Denies Hearing Impairment: Denies Cancer: Yes Skin Psychosocial: Yes Suicide Attempts, Depression Integumentary: No Blood Disorders: No Family Medical History Alzheimer's disease 19 MOTHER FH: depression 19 MOTHER Physical Exam Vital Signs Vital Signs - First Documented 05/02/18 11:14 Temp 98.1 Pulse 101 Resp 18 B/P (MAP) 105/79 (88) Pulse Ox 94 O2 Delivery Nasal Cannula O2 Flow Rate 2.00 Capillary Refill : General Appearance: No Apparent Distress, WD/WN HEENT: PERRL/EOMI, Normal ENT Inspection, Pharynx Normal (all mucosa is mildly dry) Neck: Non Tender, Supple Respiratory: Lungs Clear, Normal Breath Sounds, No Accessory Muscle Use, No Respiratory Distress, Other (chest pressure and pain reproducible by palpation directly over left lateral sternum and ribs) Cardiovascular: Regular Rate, Rhythm, No Edema, No Murmur, Normal Peripheral Pulses Gastrointestinal: Normal Bowel Sounds, No Pulsatile Mass, Non Tender, Soft Extremity: Normal Capillary Refill, Non Tender, No Calf Tenderness, No Pedal Edema Neurologic/Psychiatric: Alert, Oriented x3, Normal Mood/Affect Skin: Normal Color, Warm/Dry Progress/Results/Core Measures Results/Orders Lab Results Laboratory Tests Test 05/02/18 11:20 05/02/18 11:41 Range/Units White Blood Count 13.9 H 4.3-11.0 10^3/uL Red Blood Count 4.38 4.35-5.85 10^6/uL Hemoglobin 13.4 13.3-17.7 G/DL Hematocrit 38 L 40-54 % Mean Corpuscular Volume 87 80-99 FL Mean Corpuscular Hemoglobin 31 25-34 PG Mean Corpuscular Hemoglobin Concent 35 32-36 G/DL Red Cell Distribution Width 14.7 H 10.0-14.5 % Platelet Count 174 130-400 10^3/uL Mean Platelet Volume 10.4 7.4-10.4 FL Neutrophils (%) (Auto) 65 42-75 % Lymphocytes (%) (Auto) 24 12-44 % Monocytes (%) (Auto) 9 0-12 % Eosinophils (%) (Auto) 2 0-10 % Basophils (%) (Auto) 0 0-10 % Neutrophils # (Auto) 9.0 H 1.8-7.8 X 10^3 Lymphocytes # (Auto) 3.4 1.0-4.0 X 10^3 Monocytes # (Auto) 1.2 H 0.0-1.0 X 10^3 Eosinophils # (Auto) 0.3 0.0-0.3 10^3/uL Basophils # (Auto) 0.0 0.0-0.1 10^3/uL Prothrombin Time 13.8 12.2-14.7 SEC INR Comment 1.1 0.8-1.4 Activated Partial Thromboplast Time 29 24-35 SEC D-Dimer 0.48 0.00-0.49 UG/ML Sodium Level 136 135-145 MMOL/L Potassium Level 4.9 3.6-5.0 MMOL/L Chloride Level 102 98-107 MMOL/L Carbon Dioxide Level 22 21-32 MMOL/L Anion Gap 12 5-14 MMOL/L Blood Urea Nitrogen 23 H 7-18 MG/DL Creatinine 1.35 H 0.60-1.30 MG/DL Estimat Glomerular Filtration Rate 53 BUN/Creatinine Ratio 17 Glucose Level 344 H 70-105 MG/DL Calcium Level 9.8 8.5-10.1 MG/DL Magnesium Level 2.4 1.8-2.4 MG/DL Total Bilirubin 0.4 0.1-1.0 MG/DL Aspartate Amino Transf (AST/SGOT) 27 5-34 U/L Alanine Aminotransferase (ALT/SGPT) 34 0-55 U/L Alkaline Phosphatase 207 H 40-136 U/L Myoglobin 48.6 10.0-92.0 NG/ML Troponin I < 0.30 <0.30 NG/ML B-Type Natriuretic Peptide 21.8 <100.0 PG/ML Total Protein 7.9 6.4-8.2 GM/DL Albumin 3.8 3.2-4.5 GM/DL Lipase 75 8-78 U/L Glucometer 312 H 70-110 MG/DL My Orders Orders - KARLENENICOLLE J Cbc With Automated Diff (05/02/18:) Magnesium (05/02/18) Chest 1 View, Ap/Pa Only (05/02/18) Ekg Tracing (05/02/18:) Cardiac Profile 1 (05/02/18) Comprehensive Metabolic Panel (05/02/18) Myoglobin Serum (05/02/18) Protime With Inr (05/02/18) Partial Thromboplastin Time (05/02/18:) O2 (05/02/18:) Monitor-Rhythm Ecg Trace Only (05/02/18) Lipid Panel (05/03/18 06:00) Aspirin Chewable Tablet (Baby Aspirin Ch (05/02/18 11:30) Saline Lock/Iv-Start (05/02/18:) Lipase (05/02/18:) BNP (05/02/18:) Fibrin Degradation Products (05/02/18:) Lidocaine 2% Viscous 15 Ml (Xylocaine Vi (05/02/18 11:30) Famotidine Tablet (Pepcid Tablet) (05/02/18 11:) Antacid Suspension (Mylanta Suspension (05/02/18 11:30) Saline Lock/Iv-Start (05/02/18:) Ns Iv 500 Ml (Sodium Chloride 0.9%) (05/02/18:) Accucheck Stat ONCE (05/02/18:) Acetaminophen Tablet (Tylenol Tablet) (05/02/18 13:15) Enoxaparin Injection (Lovenox Injection) (05/02/18 13:15) Medications Given in ED Current Medications Medications Dose Ordered Sig/Cristhian Route Start Time Stop Time Status Last Admin Dose Admin Al Hydrox/Mg Hydrox/Simethicone 30 ml ONCE ONCE PO 6/2/18 11:30 05/02/18 11:31 DC 05/02/18 11:44 30 ML Aspirin 324 mg ONCE ONCE PO 05/02/18 11:30 05/02/18 11:31 DC 05/02/18 11:41 324 MG Lidocaine HCl 15 ml ONCE ONCE PO 05/02/18 11:30 05/02/18 11:31 DC 05/02/18 11:44 15 ML Sodium Chloride 500 ml @ 0 mls/hr Q0M ONCE IV 05/02/18 11:26 05/02/18 11:31 DC 05/02/18 11:44 500 MLS/HR Vital Signs/I&O 05/02/18 05/02/18 11:14 11:14 Temp 98.1 Pulse 101 Resp 18 B/P (MAP) 105/79 (88) Pulse Ox 94 O2 Delivery Nasal Cannula Nasal Cannula O2 Flow Rate 2.00 2.00 Progress Progress Note : Time: 11:35 Progress Note Bronchospasm or bronchitis/pneumonia. He does have a history of GERD. We'll give him drain and 24 mg of aspirin chewed up but were not hold off any more nitroglycerin as a systolic blood pressure is 105 on arrival. We'll recheck a blood sugar and give him a GI cocktail see if this makes any improvement in his symptoms. Dr. Naylor: Cardiac catheterization 2011: Angiographically normal coronary arteries. Normal left ventricular systolic function. Left ventricular EF 55%. Increased left ventricular end-diastolic pressure secondary to hypertensive disease. ED ACS 17 points. Not low risk. This patient is not a candidate for early discharge and should receive a standard chest pain evaluation with delayed troponin testing. Initial ECG Impression Date: May 02, 2018 Initial ECG Rhythm: S.Tach Initial ECG Intervals: Normal Initial ECG Impression: Normal Initial ECG Comparisson: Unchanged Comment No ST wave elevation or depression Diagnostic Imaging Diagonstic Imaging: Xray (1v) Plain Films/CT/US/NM/MRI: chest Comments VIA [facility], [facility]. [place], [place] NAME: [facility] REC#: [id number] PT STATUS: REG ER : 1950 PHYSICIAN: NICOLLE SOLER MD ADMIT DATE: 06/02/18/ER Draft Date of Exam:05/02/18 CHEST 1 VIEW, AP/PA ONLY EXAMINATION: Portable erect AP chest at 1149. INDICATION: Chest pain The heart size is within normal limits and stable when compared to 12/19/2010. The lungs are clear. There is no sign of failure, pneumonia or pleural effusion to suggest an acute abnormality. The mediastinum is not widened. The osseous structures are intact. The battery pack overlying the left scapula seen previously is again evident and no different. IMPRESSION: Stable chest. There has been no adverse change since the prior exam. Dictated on workstation # [id number] Dict: 05/02/18 1221 Trans: 05/02/18 1227 [facility] [id number] Interpreted by: CATERINA TAY MD Electronically signed by: Reviewed: Reviewed by Me Departure Communication (Admissions) Time/Spoke to Admitting Phy: 12:59 Discussed the case with Dr. Farias and she agrees to see the patient in the morning. Time/Spoke to Consulting Phy: 12:56 Dr. Ayala agrees to observe the patient overnight. He says give him a shot of Lovenox since he is not on anticoagulation. Impression Primary Impression: Chest pain Qualified Codes: R07.2 - Precordial pain Disposition: ADMITTED INPATIENT Condition: Stable Admissions Decision to Admit Reason: Admit from ER (General) Decision to Admit/Date: May 02, 2018 Time/Decision to Admit Time: 12:59 Departure-Patient Inst. Referrals: JESSICA ROMERO MD (PCP/Family) Primary Care Physician NICOLLE SOLER May 02, 2018 11:36
[2018-05-02 11:38] LABS: BASOPHILS % (AUTO) 0 % (0-10); EOSINOPHILS # (AUTO) 0.3 10^3/uL (0.0-0.3); EOSINOPHILS % (AUTO) 2 % (0-10); HEMATOCRIT 38 % (40-54); HEMOGLOBIN 13.4 G/DL (13.3-17.7); LYMPHOCYTES # (AUTO) 3.4 X 10^3 (1.0-4.0); LYMPHOCYTES % (AUTO) 24 % (12-44); MEAN CORPUSCULAR HEMOGLOBIN 31 PG (25-34); MEAN CORPUSCULAR HGB CONC 35 G/DL (32-36); MEAN CORPUSCULAR VOLUME 87 FL (80-99); MEAN PLATELET VOLUME 10.4 FL (7.4-10.4); MONOCYTES # (AUTO) 1.2 X 10^3 (0.0-1.0); MONOCYTES % (AUTO) 9 % (0-12); NEUTROPHILS % (AUTO) 65 % (42-75); PLATELET COUNT 174 10^3/uL (130-400); RED BLOOD COUNT 4.38 10^6/uL (4.35-5.85); RED CELL DISTRIBUTION WIDTH 14.7 % (10.0-14.5); WHITE BLOOD COUNT 13.9 10^3/uL (4.3-11.0)
--- OUTSIDE RECORDS SUMMARY | 2018-05-02 11:45 | XMS REPORT | Clinical Summary ---
Author Author [facility] Organization [facility] Address Unknown Phone Unavailable Care Team Providers Care Thinner Sprayer Name Role Phone Michael Caro MD Unavailable Tia España MD Unavailable Meera Ruano MD Unavailable Sonia Cano MD Unavailable Telma Malcolm WOOD BARKER-BC Unavailable Vincent Quintero MD Unavailable Unavailable Con Rosas MD Unavailable Jesus Tai MD Unavailable Unavailable Murray Russo MD Unavailable Codi Aguirre Unavailable Unavailable Mckay Frias MD Unavailable Siddharth Cortes MD Unavailable Leatha Rajan RN Unavailable Unavailable Nuria Daniel RN Unavailable Unavailable Kati Guerrero WOOD BARKER Unavailable Dorys Colunga RN Unavailable Jasmyn Carrasco Unavailable Unavailable Bhavana Haddad WOOD BARKER-FLOSSER Unavailable Liza Oglesby MA,CCC-LEGAL CONTRACTS SPECIALIST Unavailable Unavailable Edilberto Matute MD Unavailable Unavailable Mckay Walters MD Unavailable Marianne Rosario MA,CCC-LEGAL CONTRACTS SPECIALIST Unavailable Unavailable Clint Ayoub RN Unavailable Unavailable Geetha Diez MA,CCC-LEGAL CONTRACTS SPECIALIST Unavailable Unavailable Mckay Nathan PA-C Unavailable Evert Jefferson MD Unavailable Serenity Carter MD Unavailable Piedad Oliver RN Unavailable Unavailable Vivi Nelson MD Unavailable Morena Scanlon MD Unavailable Clarence Brink MD Unavailable JanetteJess Unavailable Liza Sheth Unavailable Safia Mancia MD PCP Source Comments Some departments are not documenting in the electronic medical record. If you do not see the information that you expected, contact Release of Information in the Health Information Management department at [phone] for further assistance in locating additional records.[facility] Allergies No Known Allergies Current Medications [...] 1 TABLET BY MOUTH 90 Tab 3 05/02/20 Active mg tablet ONCE DAILY 16 baclofen (LIORESAL) 10 mg Take 10 mg by mouth three Active tablet times daily. metFORMIN (GLUCOPHAGE) Take 500 mg by mouth Active 500 mg tablet twice daily with meals. sitaGLIPtin (JANUVIA) 100 Take 100 mg by mouth Active mg tab tablet daily. glimepiride (AMARYL) 2 mg Take 2 mg by mouth twice Active tablet daily. meloxicam (MOBIC) 7.5 mg Take 1 tablet by mouth 90 tablet 3 10/03/20 Active tabletIndications: Neck daily. 17 pain mirtazapine (REMERON) 30 Take 1 and 1/2 [...] 2 Active mg tablet bedtime daily. 18 acetaminophen (TYLENOL) Take 2 tablets by mouth [...] on 02/25/18. Discuss at follow up visit. gabapentin (NEURONTIN) Take 1 tablet by mouth 90 tablet 3 04/02/20 Active 800 mg tablet every 8 hours. 18 phenytoin SR (DILANTIN) Take 3 capsules by mouth 270 capsule 3 Active 100 mg capsule daily. 18 Active Problems Problem Noted Date Left-sided weakness 04/02/2018 Last Assessment & Plan: At last visit with me patient had left lower extremity weakness. This has worsened and now also has left upper extremity weakness. Patient reports there has been a gradual worsening since December 2017. Exam is remarkable for left upper and lower extremity weakness as well as numbness. There appears to be some functional overlay or the weakness. He has loss of pinprick sensation in the bilateral lower extremities which is most likely from diabetic neuropathy. Patient was also areflexic today. Suspect the weakness is multifactorial due to diabetic neuropathy and orthopedic problems in the should and knee. Patient also had a known radiculopathy in the left lower extremity. Will check vitamin B12 level. EMG/NCV of left upper and left lower extremities. Otitis externa of left ear 02/06/2018 Other chest pain 02/01/2018 Type 2 diabetes [...] major depressive disorder, without psychotic 03/2011 features ([facility]) SIRS (systemic inflammatory response syndrome) ([facility]) 11/03/2011 Respiratory failure ([facility]) 11/03/2011 Hypokalemia 07/15/2011 Pneumocephalus 07/11/2011 Overview: Post-occipital carlos hole electrode placement Groin pain, right lower quadrant 05/21/2011 Overview: S/p flakita Weakness 04/10/2011 Partial epilepsy with impairment of consciousness, intractable ([facility]) 2009 Overview: S/p left temporal lobectomy in 08/2011. Patient has been seizure free since then. L ast Assessment & Plan: Patient has been seizure free since 2010. No seizures or episodes of loss of awareness since last visit. Continue Dilantin 300 mg daily Chronic otitis media 07/31/2010 Hearing loss, mixed, [...] Encounters Date Type Specialty Care Team Description 04/02/2018 Office Visit Neurology Sonia Cano MD Numbness ( Primary Dx); Partial epilepsy with impairment of consciousness, intractable (HCC); Left-sided weakness 03/04/2018 Telephone Rehabilitation Medicine Paulina Linton MD Follow -up Phone Call 02/27/2018 Telephone Rehabilitation Medicine Paulina Linton MD Follow -up Phone Call 02/25/2018 Office Visit Otolaryngology Mckay Frias MD Chronic nonsuppurative otitis media of right ear (Primary Dx); Other chronic nonsuppurative otitis media of left ear 02/25/2018 Clinical Otolaryngology Ernestine Ramires AUD 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; Sensorineural hearing loss (SNHL) of right ear with restricted hearing of left ear 02/20/2018 Telephone Rehabilitation Paulina Scott MD Follow -up Phone Call 02/18/2018 Telephone Ophthalmology Kelly Abdul MD Post-hospital Follow Up 02/17/2018 Ancillary Cardiology Abdelrahman Ratliff MD PVC (premature Orders ventricular contraction) 02/10/2018 Telephone Rehabilitation Paulina Scott MD Follow -up Phone Call 02/09/2018 Telephone Rehabilitation Medicine Paulina Linton MD Medication Question 02/09/2018 Telephone Rehabilitation Paulina Scott MD Follow -up Phone Call 02/06/2018 Hospital Cardiology Abdelrahman Ratliff MD Encounter 02/06/2018 Documentation Cardiology Shadi Henson Test/procedure ( Holter placed on patient) 02/05/2018 [facility] Cardiology Gerry Mccoy MD Encounter 01/31/2018 Procedure Pass 01/31/2018 Procedure Pass 01/31/2018 Procedure Pass 01/30/2018 [facility] Siddharth Ponce MD Hygroma - Encounter 02/06/2018 01/30/2018 Hospital Radiology Encounter 01/30/2018 Hospital Radiology Encounter 01/30/2018 Hospital Radiology Encounter from Last 3 Months Family History Medical [...] Vital Sign Reading Time Taken Blood Pressure 114/68 04/02/2018 1:38 PM CDT Pulse 71 04/02/2018 1:38 PM CDT Temperature 36.8 C (98.2 F) 04/02/2018 1:38 PM CDT Respiratory Rate 18 12/17/2017 2:47 PM DEVOPS Oxygen Saturation 97% 02/06/2018 8:00 AM DEVOPS Inhaled Oxygen - - Concentration Weight 127 kg (280 lb) 04/02/2018 1:38 PM CDT Height 185.4 cm (6' 1") 04/02/2018 1:38 PM CDT Body Mass Index 36.94 04/02/2018 1:38 PM CDT Plan of Treatment Health Maintenance Due Date Last Done Comments HEPATITIS C SCREENING 1950 PHYSICAL (COMPREHENSIVE) 1957 EXAM PERTUSSIS VACCINE 1961 TETANUS VACCINE 1967 DILATED EYE EXAM 1968 FOOT EXAM 1968 COLORECTAL CANCER 2000 SCREENING SHINGLES VACCINE 2010 PNEUMONIA (PCV13/PPSV23) 2015 VACCINES (1 of 2 - PCV13) HBA1C 08/03/2018 01/31/2018 INFLUENZA VACCINE 08/31/2018 Procedures Procedure Name Priority Date/Time Associated Diagnosis Comments AUDIOMETRY WITH Routine 02/25/2018 TYMPANOMETRY 12:00 AM CDT TELEMETRY STRIPS-SCAN 02/12/2018 Results for this 1:25 PM CDT procedure are in the results section. TELEMETRY STRIPS-SCAN 02/10/2018 Results for this 4:33 PM CDT procedure are in the results section. ECG-SCAN 02/08/2018 Results for this 1:20 PM CDT procedure are in the results section. ECG-SCAN 02/08/2018 Results for this 1:20 PM CDT procedure are in the results section. ECG-SCAN 02/03/2018 Results for this 7:30 AM DEVOPS procedure are in the results section. ECG-SCAN 02/03/2018 Results for this 7:30 AM DEVOPS procedure are in the results section. from Last 3 Months Results * AUDIOMETRY WITH TYMPANOMETRY (02/25/2018) Specimen Performing Laboratory IN CLINIC * HOLTER WEARABLE ECG MONITOR CONNECT + SCAN (02/17/2018 12:38 PM) Specimen Performing Laboratory OTHER OUTSIDE LAB Narrative A 48 hour Holter monitor demonstrates sinus at 46 76 bpm with a mean of 57 bpm.Chronotropic incompetence is suggested. There are 32 isolated APD's and one atrial couplet.There is no SVT, no A. fib, and no a flutter 14.3% of beats are PVCs (23,548).This includes bigeminy and trigeminy. There are 43 couplets and one triplet. AV conduction is normal and there are no pauses * TELEMETRY STRIPS-SCAN (02/12/2018 1:25 PM) Narrative Ordered by an unspecified provider. * TELEMETRY STRIPS-SCAN (02/10/2018 4:33 PM) Narrative Ordered by an unspecified provider. * ECG-SCAN (02/08/2018 1:20 PM) Narrative Ordered by an unspecified provider. * ECG-SCAN (02/08/2018 1:20 PM) Narrative Ordered by an unspecified provider. * POC GLUCOSE (02/06/2018 7:57 AM) Only the most recent of 27 results within the time period is included. Component Value Ref Range Glucose, POC 163 (H) 70 - 100 MG/DL Specimen Performing Laboratory MAIN LAB [address] [place] [address] * CBC AND DIFF (02/06/2018 5:52 AM) [...] K/UL Specimen Performing Laboratory Blood MAIN LAB [address] [place] [address] * PHOSPHORUS (02/06/2018 5:52 AM) Only the most recent of 9 results within the time period is included. Component Value Ref Range Phosphorus 3.0 2.0 - 4.0 MG/DL Specimen Performing Laboratory Blood MAIN LAB [address] [place], [place] [id number] * MAGNESIUM (02/06/2018 5:52 AM) Only the most recent of 9 results within the time period is included. Component Value Ref Range Magnesium 2.3 1.6 - 2.6 mg/dL Specimen Performing Laboratory Blood MAIN LAB [address] [place] [address] * BASIC METABOLIC PANEL (02/06/2018 5:52 AM) [...] not validated for use in drug dosing adjustments.Continue to use estimated creatinine clearance per dosing reference text.Please contact the Clinical Pharmacist for questions. eGFR >60 >60 mL/min Comment: The eGFR is not validated for use in drug dosing adjustments.Continue to use estimated creatinine clearance per dosing reference text.Please contact the Clinical Pharmacist for questions. Specimen Performing Laboratory Blood [facility] MAIN LAB [address] [place] [address] * DOBUTAMINE MPI STRESS TEST (02/05/2018 9:17 [...] Peak BP - Oneil 85 Study Number [id number] Referring Provider Gerry Mccoy MD Rest Dose 0.9 mCi MPI EF 56 % TID Ratio 0.94 Summed Stress Score 1 Summed Rest Score 0 LV volume 108 mL Nuclear Cardiology In aggregate the current study is low risk in Mortality Risk regards to predicted annual cardiovascular mortality rate. Specimen Performing Laboratory OTHER OUTSIDE LAB Narrative Nuclear Report [facility] Cardiology Division of Nuclear Cardiac Imaging Consultation Report EXAMINATION:[facility] Gated [id number] Chloride myocardial perfusion single-photon emission computed tomography for viability, resting regional wall function, post stress ejection fraction, and perfusion imaging utilizing dobutamine pharmacological stress. Date of Study:02/05/18 Study #:[id number] ISIS Billing ID:[id number] Referring Physician:Gerry Mccoy MD Requested by:France Crawford [...] At peak infusion approximately 3.5 mCi of [id number] Chloride was injected intravenously. Throughout the dobutamine stress continuous electrocardiographic monitoring and serial electrocardiograms were obtained as well as intermittent blood pressure recordings. Planar and gated tomographic images were then acquired approximately 5-10 minutes after discontinuation of dobutamine infusion.The patient returned in approximately 4 hours and received an additional intravenous injection of 0.9 mCi of [id number] Chloride as a reinjected dose to assist [...] Conclusion:Pharmacologic stress ECG is negative for ischemia. Ldlwcyzxx-wu-Hkanitqgod Count Ratio:0.49(normal=or < 0.52). Scintigraphic (planar/tomographic):Planar images [...] (02/04/2018 9:54 PM) Component Value Ref Range Palstljs-K-OTJ 0.00 0.00 - 0.05 NG/ML Specimen Performing Laboratory MAIN LAB [address] [place], [place] [id number] * BLOOD BANK SAMPLE HOLD (02/04/2018 9:53 PM) Component Value Ref Range BB Sample hold IN LAB Specimen Performing Laboratory [facility] [address] [place] [address] * LACTIC ACID (BG - RAPID LACTATE) (02/04/2018 9:53 PM) Component Value Ref Range Lactic Acid,BG 2.5 (H) 0.5 - 2.0 MMOL/L Specimen Performing Laboratory Blood MAIN LAB [address] [place], [place] [id number] * TROPONIN-I (02/04/2018 9:53 PM) Only the most recent of 5 results within the time period is included. Component Value Ref Range Troponin-I 0.01 0.0 - 0.05 NG/ML Specimen Performing Laboratory Blood MAIN LAB [address] [place], [place] [id number] * PTT (APTT) (02/04/2018 9:53 PM) Only the most recent of 2 results within the time period is included. Component Value Ref Range APTT 29.9 21.0 - 39.0 SEC Specimen Performing Laboratory Blood [facility] [address] [place], [place] [id number] * PROTIME INR (PT) (02/04/2018 9:53 PM) Only the most recent of 2 results within the time period is included. Component Value Ref Range INR 1.0 0.8 - 1.2 Specimen Performing Laboratory Blood [facility] [address] [place] [address] * CBC (02/04/2018 9:53 PM) Component Value [...] FL Specimen Performing Laboratory Blood MAIN LAB [address] [place], [place] [id number] * COMPREHENSIVE METABOLIC PANEL (02/04/2018 9:53 PM) [...] not validated for use in drug dosing adjustments.Continue to use estimated creatinine clearance per dosing reference text.Please contact the Clinical Pharmacist for questions. eGFR >60 >60 mL/min Comment: The eGFR is not validated for use in drug dosing adjustments.Continue to use estimated creatinine clearance per dosing reference text.Please contact the Clinical Pharmacist for questions. Specimen Performing Laboratory Blood [facility] MAIN [facility] [address] [place] [address] * POTASSIUM (02/04/2018 9:37 AM) Only the most recent of 2 results within the time period is included. Component Value Ref Range Potassium 3.6 3.5 - 5.1 MMOL/L Specimen Performing Laboratory [facility] MAIN [facility] [address] [place] [address] * ECG-SCAN (02/03/2018 7:30 AM) Narrative Ordered by an unspecified provider. * ECG-SCAN (02/03/2018 7:30 AM) Narrative Ordered by an unspecified provider. * IONIZED CALCIUM (02/03/2018 4:25 AM) Only the most recent of 5 results within the time period is included. Component Value Ref Range Ionized Calcium 1.16 1.0 - 1.3 MMOL/L Specimen Performing Laboratory Blood [facility] MAIN [facility] [address] [place] [address] * IR LUMBAR PUNCTURE (02/02/2018 12:54 PM) [...] with pressure measurements Clinical History: Suspected meningitis CAP AND STUD MACHINE OPERATOR: VIOLETA Francis ATTENDING: Rick Dia M.D. Total [...] Interface, Radiant Results - 02/02/2018 4:01 PM DEVOPS Fluoroscopic guided lumbar puncture with pressure measurements Clinical History: Suspected meningitis CAP AND STUD MACHINE OPERATOR: VIOLETA Francis ATTENDING: Rick Dia M.D. Total [...] water. 3. 12 ml of CSF collected. Rick Melton M.D, the attending radiologist, was present for [...] Specimen Performing Laboratory Cerebrospinal Fluid MAIN LAB [address] [place] [address] * CULTURE-FUNGAL,CSF (02/02/2018 12:45 PM) Component Value Ref Range Battery Name CSF FUNGUS CULTURE Specimen Description CSF Special Requests NONE Culture NO GROWTH OF FUNGUS AT 4 WEEKS Report Status FINAL 03/09/2018 Specimen Performing Laboratory Cerebrospinal fluid - [facility] Cerebrospinal Fluid [address] [place] [address] * CULTURE-CSF W/SENSITIVITY (02/02/2018 12:45 PM) Component Value Ref Range Battery Name CSF CULTURE Specimen Description CSF Special Requests NONE Direct Gram Stain NO NEUTROPHILS SEEN NO ORGANISMS SEEN Culture NO GROWTH 3 DAYS Report Status FINAL 02/05/2018 Specimen Performing Laboratory Cerebrospinal fluid - [facility] Cerebrospinal Fluid [address] [place] [address] * CELL COUNT W/DIFF-CSF (02/02/2018 12:45 PM) [...] this report. Specimen Performing Laboratory Cerebrospinal fluid [facility] Cerebrospinal Fluid [address] [place] [address] * TOTAL PROTEIN-CSF (02/02/2018 12:45 PM) Component Value Ref Range Total Protein,CSF 58 (H) 15 - 45 MG/DL Specimen Performing Laboratory Cerebrospinal fluid [facility] Cerebrospinal Fluid [address] [place] [address] * GLUCOSE-CSF (02/02/2018 12:45 PM) Component Value Ref Range Glucose,CSF 73 40 - 75 MG/DL Xanthrochromia,CSF NONE Specimen Performing Laboratory Cerebrospinal fluid [facility] Cerebrospinal Fluid [address] [place] [address] * ALBUMIN (02/01/2018 4:40 AM) Only the most recent of 2 results within the time period is included. Component Value Ref Range Albumin 3.3 (L) 3.5 - 5.0 G/DL Specimen Performing Laboratory Blood [facility] LAB [address] [place] [address] * PHENYTOIN, TOTAL (DILANTIN) (02/01/2018 4:40 AM) Only the most recent of 2 results within the time period is included. Component Value Ref Range Phenytoin 2.7 (L) 10.0 - 20.0 MCG/ML Specimen Performing Laboratory Blood [facility] MAIN [facility] [address] [place] [address] * 2-D + DOPPLER ECHOCARDIOGRAM (01/31/2018 11:45 [...] artery NA mmHg pressure Cardiology Ultrasound Siemens [id number] Machine ECHO EF 55 % Specimen Performing [...] Interface, Radiant Results - 01/31/2018 1:48 PM DEVOPS EXAM: CT INTERNAL AUDITORY CANAL HISTORY: 67-year-old [...] Interface, Radiant Results - 01/31/2018 5:05 AM DEVOPS EXAM: MRI BRAIN (ORBITAL PROTOCOL) HISTORY: Hygroma [...] Interface, Radiant Results - 01/31/2018 5:05 AM DEVOPS EXAM: MRI BRAIN (ORBITAL PROTOCOL) HISTORY: Hygroma [...] MM/HR Specimen Performing Laboratory Blood MAIN LAB [address] [place] [address] * C REACTIVE PROTEIN (CRP) (01/31/2018 2:55 AM) Component Value Ref Range C-Reactive Protein 2.40 (H) <1.0 MG/DL Specimen Performing Laboratory Blood MAIN LAB [address] [place] [address] * LACTIC ACID(LACTATE) (01/31/2018 2:55 AM) Component Value Ref Range Lactic Acid 0.9 0.5 - 2.0 MMOL/L Specimen Performing Laboratory Blood MAIN LAB [address] [place] [address] * HEMOGLOBIN A1C (01/31/2018 2:55 AM) Component Value Ref Range Hemoglobin A1C 6.9 (H) 4.0 - 6.0 % Comment: The ADA recommends that most patients with type 1 and type 2 diabetes maintain an A1c level <7%. Specimen Performing Laboratory Blood MAIN LAB [address] [place] [address] * BNP (B-TYPE NATRIURETIC PEPTI) (01/30/2018 11:42 PM) Component Value Ref Range B Type Natriuretic 161.0 (H) 0 - 100 PG/ML Peptide Specimen Performing Laboratory Blood MAIN LAB [address] [place] [address] * LIPID PROFILE (01/30/2018 11:42 PM) Component Value Ref Range Cholesterol 209 (H) <200 MG/DL Triglycerides 399 (H) <150 MG/DL HDL 29 (L) >40 MG/DL LDL 96 <100 MG/DL VLDL 80 MG/DL Non HDL Cholesterol 180 MG/DL Comment: Calculated non-HDL Cholesterol (non-HDL-C) indirectly measures LDL-C, Lp(a), IDL-C, and VLDL-C.It is a surrogate marker for Apoprotein B.Goal should be less than 130 mg/dL. Specimen Performing Laboratory Blood [facility] MAIN [facility] [address] [place] [address] * CT HEAD EXTERNAL IMAGING (01/30/2018 12:30 AM) Narrative This order has been auto finalized and does not contain a result. * CT MAXILLOFACIAL EXTERNAL IMAGING (01/30/2018 12:15 AM) Narrative This order has been auto finalized and does not contain a result. * GENERAL RAD CHEST EXTERNAL IMAGING (01/30/2018) Narrative This order has been auto finalized and does not contain a result. from Last 3 Months
--- OUTSIDE RECORDS SUMMARY | 2018-05-02 11:45 | XMS REPORT | Encounter Summary ---
Author Author [facility] Address Unknown Phone Unavailable Care Team Providers Care Laborer Demolition Name Role Phone Michael Caro MD Unavailable Tia España MD Unavailable Meera Ruano MD Unavailable Sonia Cano MD Unavailable Telma Malcolm WAREHOUSE DISTRIBUTION MANAGER-BC Unavailable Vincent Quintero MD Unavailable Unavailable Con Rosas MD Unavailable Jesus Tai MD Unavailable Unavailable Murray Russo MD Unavailable Codi Aguirre Unavailable Unavailable Mckay Frias MD Unavailable Siddharth Cortes MD Unavailable Leatha Rajan RN Unavailable Unavailable Nuria Daniel RN Unavailable Unavailable Kati Guerrero WAREHOUSE DISTRIBUTION MANAGER Unavailable Dorys Colunga RN Unavailable Jasmyn Carrasco Unavailable Unavailable Bhavana Haddad WAREHOUSE DISTRIBUTION MANAGER-PREVENTION SPECIALIST Unavailable Liza Oglesby MA,CCC-C.O.D. AUDIT CLERK Unavailable Unavailable Edilberto Matute MD Unavailable Unavailable Mckay Walters MD Unavailable Marianne Rosario MA,CCC-C.O.D. AUDIT CLERK Unavailable Unavailable Clint Ayoub RN Unavailable Unavailable Geetha Diez MA,CCC-C.O.D. AUDIT CLERK Unavailable Unavailable Mckay Nathan PA-C Unavailable Evert Jefferson MD Unavailable Serenity Carter MD Unavailable Piedad Oliver RN Unavailable Unavailable Vivi Nelson MD Unavailable Morena Scanlon MD Unavailable Clarence Brink MD Unavailable Janette Jess DO Unavailable Liza Sheth Unavailable Safia Mancia MD PCP Reason for Visit * Reason Comments Seizure seizure free Encounter Details Date Type Department Care Team Description 04/02/2018 Office Visit Comprehensive Epilepsy Sonia Cano MD Numbness (Primary Dx); Center [address] [facility] Partial epilepsy with [facility] G056 MS 2012 impairment of [address] [place] [address] consciousness, [place] [address] intractable (HCC); [phone] Left-sided weakness Social History Tobacco Use Types Packs/Day Years [...] F) 04/02/2018 1:38 PM CDT Respiratory Rate - - Oxygen Saturation - - Inhaled Oxygen - - Concentration Weight 127 kg (280 lb) 04/02/2018 1:38 PM CDT Height 185.4 cm (6' 1") 04/02/2018 1:38 PM CDT Body Mass Index 36.94 04/02/2018 1:38 PM CDT in this encounter Functional Status Functional Status [...] as of this encounter Progress Notes * Sonia Cano MD - 04/02/2018 2:30 PM CDT Formatting of this note may be different from the original. Date of Service: 04/02/2018 Subjective: Fidel Henriquez is a 67 y.o. male. History of Present Illness Was hospitalized January 31. Patient was initially hospitalized with facial swelling. Patient was also evaluated for left side weakness. He feels like this started around December or January. He started having weakness in the left leg and now in the left arm. He feels like this continues to progress. Is able to lift more weights with the right hand than the left and he is left handed. He is currently living at [facility]. He is getting PT/OT and speech therapy. He has chronic hoarseness. Notes the feeling that he gets food stuck in his neck. He has pain in the left shoulder. Continues to have pain and swelling on the left side of the head. Reports today the left eye was swollen shut. He has been seeing cardiology for bradycardia and to follow up his chest pain. He has numbness and tingling on the left side. No trouble with urination. No constipation. He has not had any seizures. No further episodes where he feels like he might pass out. Review of Systems Constitutional: Positive for fatigue. All other systems reviewed and are negative. Objective: acetaminophen (TYLENOL) 325 mg tablet Take 2 tablets by mouth every 4 hours as needed. allopurinol (ZYLOPRIM) 100 mg tablet Take 100 mg by mouth daily. amLODIPine (NORVASC) 5 mg tablet Take 5 mg by mouth daily. aspirin EC 81 mg tablet Take 1 tablet by mouth daily. Take with food. atenolol (TENORMIN) 100 mg tablet Take 1 Tab by mouth daily. atorvastatin (LIPITOR) 20 mg tablet Take 1 tablet by mouth at bedtime daily. baclofen (LIORESAL) 10 mg tablet Take 10 mg by mouth three times daily. carboxymethylcellulose (REFRESH PLUS) 0.5 % dpet Apply 1 drop to both eyes four times daily. dapagliflozin 10 mg tab Take 1 tablet by mouth daily. docusate (COLACE) 100 mg capsule Take 1 capsule by mouth twice daily. erythromycin (ROMYCIN) ophthalmic ointment Apply 0.5 inches to both eyes at bedtime daily. finasteride (PROSCAR) 5 mg tablet TAKE 1 TABLET BY MOUTH ONCE DAILY gabapentin (NEURONTIN) 800 mg tablet Take 1 tablet by mouth every 8 hours. glimepiride (AMARYL) 2 mg tablet Take 2 mg by mouth twice daily. heparin (porcine) PF 5,000units/0.5mL injection syringe Inject 0.5 mL under the skin every 8 hours. DVT prophylaxis, continue until mobilizing well HYDROcodone/acetaminophen (NORCO) 5/325 mg tablet Take 1-2 tablets by mouth every 4 hours as needed ibuprofen (MOTRIN) 600 mg tablet Take 600 [...] mg by mouth twice daily with meals. methylPREDNIsolone (MEDROL DOSEPAK) 4 mg tablet Take medication as directed on package for 6 days. Take with food. mirtazapine (REMERON) 30 mg tablet Take 1 and 1/2 tablet at night for mood, anxiety and sleep nitroglycerin (NITROSTAT) 0.[address] 1 tablet under tongue every 5 minutes as needed for Chest Pain. Max of 3 tablets, call 911. ofloxacin (FLOXIN) 0.3 % otic solution Place 4 drops in affected ear(s) as directed twice daily. Continue until follow up with Dr. Frias on 02/25/18. Discuss at follow up visit. omeprazole DR(+) (PRILOSEC) 20 mg capsule Take 20 mg by mouth daily. phenytoin SR (DILANTIN) 100 mg capsule Take 3 capsules by mouth daily. potassium chloride SR (K-DUR) 20 mEq tablet Take 20 mEq by mouth daily. senna/docusate (SENOKOT-S) 8.6/50 mg tablet Take 1 tablet by mouth twice daily. sertraline (ZOLOFT) 100 mg tablet Take 300mg in AM (3x 100mg) for mood, anxiety and skin picking sitaGLIPtin (JANUVIA) 100 mg tab tablet Take 100 mg by mouth daily. torsemide(+) (DEMADEX) 20 mg tablet Take 20 mg by mouth twice daily. Vitals: 04/02/18 1338 BP: 114/68 Pulse: 71 Temp: 36.8 C (98.2 F) Weight: 127 kg (280 lb) Height: 185.4 cm (73") Body mass index is 36.94 kg/m. 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 Speech is fluent without dysarthria. He does have a hoarse voice. CN: II: PERRL III, IV, : EOEMI without nystagmus V: facial sensation is decreased on the left VII: facial movements are symmetric IX/X: palate elevates symmetrically XII: tongue is midline. Motor: No pronator drift. Left arm strength limited secondary to left shoulder pain. Giveway weakness on the left. Left Right Shoulder Abduction 3 5 Elbow flexion 4 5 Elbow extension 4 5 Wrist Extension 4 5 Wrist Flexion 4 5 Finger Extension 4 5 Finger Flexion 4 5 Hand Interossei 4 5 Hip Flexion 2 5 Knee Extension 2 5 Knee Flexion 2 5 Foot Dorsiflexion 3 5 Foot Plantar Flexion 2 5 Reflexes Left Right Biceps 0 0 Triceps 0 0 Brachioradialis 0 0 Knee 0 0 Ankle 0 0 Toes down down Sensation: RUE LUE RLE LLE Pinprick normal decreased decreased decreased Vibration normal Absent to elbow Absent to knee Absent to knee Coordination: RUE LUE RLE LLE Finger to Nose normal normal VNS interrogated in clinic. Settings as follows Model number: 105 Serial Numbers: [id number] Implant date: 01/09/2015 Output current: 0.75 mAmp Signal frequency 20 hz Pulse width: 500 microseconds On time: 30 seconds Off time: 5.0 minutes Magnet current 0.75 mAmp On time 60 seconds Pulse width 500 microseconds Autostimulation No Near end of Service: NO I reviewed MRI and lab reports including normal CSF studies from 01/2018 hospitalization. Assessment and Plan: Partial epilepsy with impairment of consciousness, intractable (HCC) Patient has been seizure free since 2010. No seizures or episodes of loss of awareness since last visit. Continue Dilantin 300 mg daily Left-sided weakness At last visit with me patient had [...] of left upper and left lower extremities. Time spent with Fidel Henriquez was 45 minutes, 35 minutes of which were towards counseling regarding diagnosis, prognosis and management and review of medical records. in this encounter Miscellaneous Notes * Assessment & Plan Note - Sonia Cano MD - 04/02/2018 3:18 PM CDT Associated Problem(s): Left-sided weakness At last visit with ms patient had left lower extremity weakness. This [...] of left upper and left lower extremities. * Assessment & Plan Note - Sonia Cano MD - 04/02/2018 3:15 PM CDT Associated Problem(s): Partial epilepsy with impairment of consciousness, intractable (HCC) Patient has been seizure free since 2010. No seizures or episodes of loss of awareness since last visit. Continue Dilantin 300 mg daily in this encounter Plan of Treatment Name Priority Associated Diagnoses Order Schedule VITAMIN B12 Routine Numbness Expected: 04/02/2018, Expires: 04/02/2019 as of this encounter Visit Diagnoses Diagnosis Numbness - Primary Disturbance of skin sensation Partial epilepsy with impairment of consciousness, intractable (HCC) Localization-related (focal) (partial) epilepsy and epileptic syndromes with complex partial seizures, with intractable epilepsy Left-sided weakness Muscle weakness (generalized)
--- OUTSIDE RECORDS SUMMARY | 2018-05-02 11:45 | XMS REPORT | Encounter Summary ---
Author Author [facility] Organization [facility] Address Unknown Phone Unavailable Care Team Providers Care Fitness And Wellness Director Name Role Phone Michael Caro MD Unavailable Tia España MD Unavailable Meera Ruano MD Unavailable Sonia Cano MD Unavailable Telma Malcolm SUPERVISOR CONTACT AND SERVICE CLERKS-BC Unavailable Vincent Quintero MD Unavailable Unavailable Con Rosas MD Unavailable Jesus Tai MD Unavailable Unavailable Murray Russo MD Unavailable Codi Aguirre Unavailable Unavailable Mckay Frias MD Unavailable Siddharth Cortes MD Unavailable Leatha Rajan RN Unavailable Unavailable Nuria Daniel RN Unavailable Unavailable Kati Guerrero SUPERVISOR CONTACT AND SERVICE CLERKS Unavailable Dorys Colunga RN Unavailable Jasmyn Carrasco Unavailable Unavailable Bhavana Haddad SUPERVISOR CONTACT AND SERVICE CLERKS-ACTION INSTALLER Unavailable Liza Oglesby MA,CCC-FIREFIGHTING EQUIPMENT SPECIALIST Unavailable Unavailable Edilberto Matute MD Unavailable Unavailable Mckay Walters MD Unavailable Marianne Rosario MA,CCC-FIREFIGHTING EQUIPMENT SPECIALIST Unavailable Unavailable Clint Ayoub RN Unavailable Unavailable Geetha Diez MA,CCC-FIREFIGHTING EQUIPMENT SPECIALIST Unavailable Unavailable Mckay Nathan PA-C Unavailable Evert Jefferson MD Unavailable Serenity Carter MD Unavailable Piedad Oliver RN Unavailable Unavailable Vivi Nelson MD Unavailable Morena Scanlon MD Unavailable Clarence Brink MD Unavailable Jess Savage DO Unavailable Liza Sheth Unavailable Safia Mancia MD PCP Reason for Visit * Reason Comments Ear Pain Encounter Details Date Type Department Care Team Description 02/25/2018 Office Visit [facility] Mckay Frias MD Chronic nonsuppurative Physicians - ENT [address] otitis media of right ear 3RD FLO[address] (Primary Dx); [address] [place] [address] Other chronic OFFICE BLDG [phone] nonsuppurative otitis [place], [place] media of left ear [address] Social History Tobacco Use Types Packs/Day Years Used Date Never Smoker Smokeless Tobacco: Never Used Alcohol Use Drinks/Week oz/Week Comments No Sex Assigned at Date Recorded Not on file as of this encounter Last Filed Vital Signs Vital Sign Reading Time Taken Blood Pressure 115/63 02/25/2018 11:29 AM CDT Pulse 33 02/25/2018 11:29 AM CDT Temperature - - Respiratory Rate - - Oxygen Saturation - - Inhaled Oxygen - - Concentration Weight 127 kg (280 lb) 02/25/2018 11:29 AM CDT Height 185.4 cm (6' 1") 02/25/2018 11:29 AM CDT Body Mass Index 36.94 02/25/2018 11:29 AM CDT in this encounter Functional Status Functional [...] as of this encounter Progress Notes * Mckay Frias MD - 02/25/2018 11:20 AM CDT Formatting of this note may be different from the original. Date of Service: 02/25/2018 Subjective: Fidel Henriquez is a 67 y.o. male. History of Present Illness Fidel Henriquez follows up for a left cavity and has a history of left mastoidectomy, as well as left hippocampectomy for intractable seizures, with infections of the bone flap. He notes recent left-sided facial swelling and pain sometime after his last set of botox injections; he is currently being treated with antibiotics. He denies left ear drainage or pain. Review of Systems Constitutional: Negative. HENT: Positive for ear discharge and ear pain. Eyes: Negative. Respiratory: Negative. Cardiovascular: Negative. Gastrointestinal: Negative. Endocrine: Negative. Genitourinary: Negative. Musculoskeletal: Negative. Skin: Negative. Allergic/Immunologic: Negative. Neurological: Negative. Hematological: Negative. Psychiatric/Behavioral: Negative. Objective: acetaminophen (TYLENOL) 325 mg tablet Take [...] 20 mg by mouth twice daily. Vitals: 02/25/18 1129 BP: 115/63 Pulse: (!) 33 Weight: 127 kg (280 lb) Height: 185.4 cm (73") Body mass index is 36.94 kg/m. Physical Exam Cleaned obstructive cerumen with microscope: Right with curette. Left with suction Scarred, atelectatic right eardrum. Powdered Left eardrum with in position and patent tube. Powdered Simple Mastoid Cavity Debridement Preoperative diagnosis: LEFT chronic otitis media Postoperative diagnosis: Same as Preoperative diagnosis Procedure performed: Simple mastoid cavity debridement Left. CPT 34099 (50 modifier applies if bilateral) Preoperative discussion/Indication: Chronic obstructive debris buildup with potential for infection is noted in the above-mentioned mastoid cavity(s). Removal of build-up indicated to improve visualization an/or decrease potential infection-harboring debris. Details: With use of the microscope, debris was removed from the mastoid cavity using forceps, suction, and picks. The patient tolerated the procedure well. Dry left cavity Neat Appearance: Yes Oral Communication: Yes Clear Voice: Yes Neuro: Left: Right: CN VII 12/06 12/06 CN 3,4,5,6 nl nl CN 9,10,11,12 nl nl Hearing grossly intact Normal respiratory effort No abdominal tenderness Head/Face lesions? N Ext ear/nose lesions? N Spont Nyst N Gaze Nystagmus N Affect Abnormal N Edema/extremity changes? N EOM restriction? N Orientation Abn N Audio date 02/25/2018 Right 40/30 dB 92% Left 67/43 dB 88% Assessment and Plan: Fidel Henriquez follows up for a left cavity and has a history of left mastoidectomy, as well as left hippocampectomy for intractable seizures, with infections of the bone flap. He notes recent left-sided facial swelling and pain sometime after his last set of botox injections; he is currently being treated with antibiotics. He denies left ear drainage or pain. Under microscopy, I cleaned his right ear with curette and his left with suction. Exam revealed a scarred, atelectatic right eardrum, a left eardrum with an in position and patent tube, and a dry left cavity. I did powder both his ears. Audiogram today revealed right mild sloping to severe sensorineural hearing loss and left moderately-severe to profound mixed hearing loss. He has a left cavity that appears open and dry today. I do not believe that this is related to of facial swelling and pain. I will plan to see him back in 6 -12 months in follow up. In the presence of Mckay Frias MD, I have taken down these notes, Shana Red. 02/25/2018 11:49 AM in this encounter Plan of Treatment Not on fileas of this encounter Visit Diagnoses Diagnosis Chronic nonsuppurative otitis media of right ear - Primary Other chronic nonsuppurative otitis media of left ear
--- OUTSIDE RECORDS SUMMARY | 2018-05-02 11:45 | XMS REPORT | Encounter Summary ---
Author Author [facility] Organization [facility] Address Unknown Phone Unavailable Care Team Providers Care Assembler Garment Form Name Role Phone Michael Caro MD Unavailable Tia España MD Unavailable Meera Ruano MD Unavailable Sonia Cano MD Unavailable Telma Malcolm DRIVER EXAMINER-BC Unavailable Vincent Quintero MD Unavailable Unavailable Con Rosas MD Unavailable Jesus Tai MD Unavailable Unavailable Murray Russo MD Unavailable Codi Aguirre Unavailable Unavailable Mckay Frias MD Unavailable Siddharth Cortes MD Unavailable Leatha Rajan RN Unavailable Unavailable Nuria Daniel RN Unavailable Unavailable Kati Guerrero DRIVER EXAMINER Unavailable Dorys Colunga RN Unavailable Jasmyn Carrasco Unavailable Unavailable Bhavana Haddad DRIVER EXAMINER-ASSURANCE SENIOR Unavailable Liza Oglesby MA,CCC-DIRECTOR TEEN POST Unavailable Unavailable Edilberto Matute MD Unavailable Unavailable Mckay Walters MD Unavailable Marianne Rosario MA,CCC-DIRECTOR TEEN POST Unavailable Unavailable Clint Ayoub RN Unavailable Unavailable Geetha Diez MA,CCC-DIRECTOR TEEN POST Unavailable Unavailable Mckay Nathan PA-C Unavailable Evert Jefferson MD Unavailable Serenity Carter MD Unavailable Piedad Oliver RN Unavailable Unavailable Vivi Nelson MD Unavailable Morena Scanlon MD Unavailable Clarence Brink MD Unavailable Jess Savage DO Unavailable Liza Sheth Unavailable Safia Mancia MD PCP Reason for Visit * Reason Comments Hearing Testing Encounter Details Date Type Department Care Team Description 02/25/2018 Clinical [facility] Ernestine Ramires AUD Mixed conductive and Support Physicians - ENT [address] sensorineural hearing [address] loss of left ear with [address] [place] [address] restricted hearing of OFFICE BLDG [phone] right ear; [place], [place] Sensorineural hearing [id number] loss (SNHL) of right ear [phone] with restricted hearing of left ear Social History Tobacco Use Types Packs/Day Years [...] impairment: No 02/06/2018 as of this encounter Plan of Treatment Not on fileas of this encounter Procedures Procedure Name Priority Date/Time Associated Diagnosis Comments AUDIOMETRY WITH Routine 02/25/2018 TYMPANOMETRY 12:00 AM CDT in this encounter Visit Diagnoses Diagnosis Mixed conductive and sensorineural hearing loss of left ear with restricted hearing of right ear Sensorineural hearing loss (SNHL) of right ear with restricted hearing of left ear
--- OUTSIDE RECORDS SUMMARY | 2018-05-02 11:45 | XMS REPORT | Encounter Summary ---
Author Author [facility] Organization [facility] Address Unknown Phone Unavailable Care Team Providers Care Tube Former Operator Name Role Phone Michael Caro MD Unavailable Tia España MD Unavailable Meera Ruano MD Unavailable Sonia Cano MD Unavailable Telma Malcolm SERVICE DISPATCHER-BC Unavailable Vincent Quintero MD Unavailable Unavailable Con Rosas MD Unavailable Jesus Tai MD Unavailable Unavailable Murray Russo MD Unavailable Codi Aguirre Unavailable Unavailable Mckay Frias MD Unavailable Siddharth Cortes MD Unavailable Leatha Rajan RN Unavailable Unavailable Nuria Daniel RN Unavailable Unavailable Kati Guerrero SERVICE DISPATCHER Unavailable Dorys Colunga RN Unavailable Jasmyn Carrasco Unavailable Unavailable Bhavana Haddad SERVICE DISPATCHER-SNACK BAR CASHIER Unavailable Liza Oglesby MA,CCC-COLOR MATCHER Unavailable Unavailable Edilberto Matute MD Unavailable Unavailable Mckay Walters MD Unavailable Marianne Rosario MA,CCC-COLOR MATCHER Unavailable Unavailable Clint Ayoub RN Unavailable Unavailable Geetha Diez MA,CCC-COLOR MATCHER Unavailable Unavailable Mckay Nathan PA-C Unavailable Evert Jefferson MD Unavailable Serenity Carter MD Unavailable Piedad Oliver RN Unavailable Unavailable Vivi Nelson MD Unavailable Morena Scanlon MD Unavailable Clarence Brink MD Unavailable Janette Jess DO Unavailable Liza Sheth Unavailable Safia Mancia MD PCP Reason for Visit * Reason Comments Follow-up Phone Call Encounter Details Date Type Department Care Team Description 02/20/2018 Telephone Paulina Banegas MD Follow-up Phone Call Rehabilitative Medicine [address] [facility] [address] [place] [place] [address] [place] [address] [phone] Social History Tobacco Use Types Packs/Day Years [...] impairment: No 02/06/2018 as of this encounter Miscellaneous Notes * Telephone Encounter - Janki Sorto RN - 02/20/2018 9:18 AM CDT Nurse received v/m from Fidel yesterday 02/19 asking for callback to update status of his recent hospitalization. Nurse returned call, Fidel said he is still inpatient at [facility], plans are to transfer him to LTC Friday 02/23 for rehab, also at [facility]. Patient says they have ordered a brace for his right leg that goes from his groin to his ankle because every time they stand him up his right leg goes out & he would fall if not holding onto care providers. At this point, patient is unable to transfer from bed to chair, needs lifted for all transfers. Fidel says his left eye is completely swollen shut again and they still do not know why this has happened. Fidel has been in the hospital since January 30. He also says they have found a possible heart blockage, more tests are being done. Nurse asked Fidel to please keep us updated as he can. in this encounter Plan of Treatment Not on fileas of this encounter Visit Diagnoses Not on filein this encounter
--- OUTSIDE RECORDS SUMMARY | 2018-05-02 11:45 | XMS REPORT | Encounter Summary ---
Author Author [facility] Organization [facility] Address Unknown Phone Unavailable Care Team Providers Care International Logistics Manager Name Role Phone Michael Caro MD Unavailable Tia España MD Unavailable Meera Ruano MD Unavailable Sonia Cano MD Unavailable Telma Malcolm PHOTO LAB SPECIALIST-BC Unavailable Vincent Quintero MD Unavailable Unavailable Con Rosas MD Unavailable Jesus Tai MD Unavailable Unavailable Murray Russo MD Unavailable Codi Aguirre Unavailable Unavailable Mckay Frias MD Unavailable Siddharth Cortes MD Unavailable Leatha Rajan RN Unavailable Unavailable Nuria Daniel RN Unavailable Unavailable Kati Guerrero PHOTO LAB SPECIALIST Unavailable Dorys Colunga RN Unavailable Jasmyn Carrasco Unavailable Unavailable Bhavana Haddad PHOTO LAB SPECIALIST-BOATHOUSE KEEPER Unavailable Liza Oglesby MA,CCC-GRAPHIC EDITOR Unavailable Unavailable Edilberto Matute MD Unavailable Unavailable Mckay Walters MD Unavailable Marianne Rosario MA,CCC-GRAPHIC EDITOR Unavailable Unavailable Clint Ayoub RN Unavailable Unavailable Geetha Diez MA,CCC-GRAPHIC EDITOR Unavailable Unavailable Mckay Nathan PA-C Unavailable Evert Jefferson MD Unavailable Serenity Carter MD Unavailable Piedad Oliver RN Unavailable Unavailable Vivi Nelson MD Unavailable Morena Scanlon MD Unavailable Clarence Brink MD Unavailable Janette Jess DO Unavailable Liza Sheth Unavailable Safia Mancia MD PCP Reason for Visit * Reason Comments Follow-up Phone Call Encounter Details Date Type Department Care Team Description 02/27/2018 Telephone Paulina Banegas MD Follow-up Phone Call Rehabilitative Medicine [address] [facility] [address] [place] [address] [place] [address] [phone] Social History Tobacco Use Types Packs/Day Years [...] Telephone Encounter - Janki Sorto RN - 02/27/2018 2:10 PM CDT Nurse received call from Fidel to update on his status. Patient is still inpatient at [facility], receiving intensive rehab PT for his right leg weakness. He is still unable to walk, tried again yesterday & almost fell. Patient said his heart rate is really low & they don't know why, pulse run 35- 50 bpm; pt also says he is always cold - being followed by cardiology but they have not found any reason for his low heart rate as of yet. Patient reports his left eye is blurry, his eye doctor wants to do surgery in the future but wants him to be stable before this surgery. Nurse discussed an appointment with Dr. Linton for evaluation as Fidel asked again if the Botox could have contributed in some way to his current health issues. Fidel stated since he is in a wheelchair most of the time his lbp has been increasing - we discussed the options he was presented at his Dec. clinic visit including spinal cord stimulator and MBBs for RFA. He wants to know if Dr. Linton thinks he should schedule an appointment soon or wait until he is discharged from [facility], although they have told him he will be there for quite a while. Patient has access to transportation for an appointment but wants to be sure Dr. Linton thinks it would be beneficial since it is such a long trip and would take coordination from [facility]. Nurse to communicate with Dr Linton and follow up with patient early next week. Fidel v/u and expressed satisfaction with this plan. in this encounter Plan of Treatment Not on fileas of this encounter Visit Diagnoses Not on filein this encounter
--- OUTSIDE RECORDS SUMMARY | 2018-05-02 11:45 | XMS REPORT | Encounter Summary ---
Author Author [facility] Organization [facility] Address Unknown Phone Unavailable Care Team Providers Care Chuck Boner Name Role Phone Michael Caro MD Unavailable Tia España MD Unavailable Meera Ruano MD Unavailable Sonia Cano MD Unavailable Telma Malcolm STUDENT COUNSELOR-BC Unavailable Vincent Quintero MD Unavailable Unavailable Con Rosas MD Unavailable Jesus Tai MD Unavailable Unavailable Murray Russo MD Unavailable Codi Aguirre Unavailable Unavailable Mckay Frias MD Unavailable Siddharth Cortes MD Unavailable Leatha Rajan RN Unavailable Unavailable Nuria Daniel RN Unavailable Unavailable Kati Guerrero STUDENT COUNSELOR Unavailable Dorys Colunga RN Unavailable Jasmyn Carrasco Unavailable Unavailable Bhavana Haddad STUDENT COUNSELOR-BANJO REPAIRER Unavailable Liza Oglesby MA,CCC-WOOD HEEL FLAP INSERTER Unavailable Unavailable Edilberto Matute MD Unavailable Unavailable Mckay Walters MD Unavailable Marianne Rosario MA,CCC-WOOD HEEL FLAP INSERTER Unavailable Unavailable Clint Ayoub RN Unavailable Unavailable Geetha Diez MA,CCC-WOOD HEEL FLAP INSERTER Unavailable Unavailable Mckay Nathan PA-C Unavailable Evert Jefferson MD Unavailable Serenity Carter MD Unavailable Piedad Oliver RN Unavailable Unavailable Vivi Nelson MD Unavailable Morena Scanlon MD Unavailable Clarence Brink MD Unavailable Janette Jess DO Unavailable Liza Sheth Unavailable Safia Mancia MD PCP Reason for Visit * Reason Comments Follow-up Phone Call Encounter Details Date Type Department Care Team Description 03/04/2018 Telephone [place] Walters MD Follow-up Phone Call Rehabilitative Medicine [address] [facility] [address] [place] [address] [place] [address] [phone] Social History Tobacco Use Types Packs/Day Years [...] Telephone Encounter - Janki Sorto RN - 03/04/2018 10:36 AM CDT Nurse called patient to follow up, let him know Dr. Linton wants to know as [facility] we can schedule him for a fuv in clinic. Fidel v/u and agrees to this plan. Fidel was in PT when nurse called, stated he is able to walk with the brace he just received. Nurse will wait for Fidel's call to let us know when he will be discharged, clinic apt will be made at that time. in this encounter Plan of Treatment Not on fileas of this encounter Visit Diagnoses Not on filein this encounter
--- OUTSIDE RECORDS SUMMARY | 2018-05-02 11:45 | XMS REPORT | Encounter Summary ---
Author Author [facility] Organization [facility] Address Unknown Phone Unavailable Care Team Providers Care Canvas Goods Supervisor Name Role Phone Michael Caro MD Unavailable Tia España MD Unavailable Meera Ruano MD Unavailable Sonia Cano MD Unavailable Telma Malcolm COMPOUNDER HELPER-BC Unavailable Vincent Quintero MD Unavailable Unavailable Con Rosas MD Unavailable Jesus Tai MD Unavailable Unavailable Murray Russo MD Unavailable Codi Aguirre Unavailable Unavailable Mckay Frias MD Unavailable Siddharth Cortes MD Unavailable Leatha Rajan RN Unavailable Unavailable Nuria Daniel RN Unavailable Unavailable Kati Guerrero COMPOUNDER HELPER Unavailable Dorys Colunga RN Unavailable Jasmyn Carrasco Unavailable Unavailable Bhavana Haddad COMPOUNDER HELPER-LINUX DEVELOPER Unavailable Liza Oglesby MA,CCC-MUSEUM DOCENT Unavailable Unavailable Edilberto Matute MD Unavailable Unavailable Mckay Walters MD Unavailable Marianne Rosario MA,CCC-MUSEUM DOCENT Unavailable Unavailable Clint Ayoub RN Unavailable Unavailable Geetha Diez MA,CCC-MUSEUM DOCENT Unavailable Unavailable Mckay Nathan PA-C Unavailable Evert Jefferson MD Unavailable Serenity Carter MD Unavailable Piedad Oliver RN Unavailable Unavailable Vivi Nelson MD Unavailable Morena Scanlon MD Unavailable Clarence Brink MD Unavailable Jess Savage DO Unavailable Liza Sheth Unavailable Safia Mancia MD PCP Reason for Visit * Reason Comments Post-hospital Follow Up Encounter Details Date Type Department Care Team Description 02/18/2018 Telephone [facility] Kelly Abdul MD Post- hospital Follow Up Physicians - [address] [facility] [place] [address] [address] [facility] [phone] [facility] [place] [address] Social History Tobacco Use Types Packs/Day Years [...] encounter Miscellaneous Notes * Telephone Encounter - Mandy Gutierrez COA - 02/18/2018 5:40 PM CDT Spoke with patient per e-mail: Please call Fidel Florence ([phone]) and schedule non-urgent fuv with Dr. Abdul sometime in the next ~1-2 weeks. Patient also seeing outside retina provider so if he prefers to continue to follow with retina only that's acceptable. Patient states [facility], he is still unable to walk or stand, I gave him our phone number so he could call us back, patient states his eye is swollen, I advised him to please call us when he is able to make apt. Pt voiced understanding, please schedule accordingly when patient calls back. in this encounter Plan of Treatment Not on fileas of this encounter Visit Diagnoses Not on filein this encounter
[2018-05-02 11:46] LABS: INR 1.1 (0.8-1.4); PROTHROMBIN TIME PATIENT 13.8 SEC (12.2-14.7)
--- OUTSIDE RECORDS SUMMARY | 2018-05-02 11:46 | XMS REPORT | Encounter Summary ---
Author Author [facility] Organization [facility] Address Unknown Phone Unavailable Care Team Providers Care Shank Taper Name Role Phone Michael Caro MD Unavailable Tia España MD Unavailable Meera Ruano MD Unavailable Sonia Cano MD Unavailable Telma Malcolm RESIDENT CARE PROVIDER-BC Unavailable Vincent Quintero MD Unavailable Unavailable Con Rosas MD Unavailable Jesus Tai MD Unavailable Unavailable Murray Russo MD Unavailable Codi Aguirre Unavailable Unavailable Mckay Frias MD Unavailable Siddharth Cortes MD Unavailable Leatha Rajan RN Unavailable Unavailable Nuria Daniel RN Unavailable Unavailable Kati Guerrero RESIDENT CARE PROVIDER Unavailable Dorys Colunga RN Unavailable Jasmyn Carrasco Unavailable Unavailable Bhavana Haddad RESIDENT CARE PROVIDER-ASSOCIATE SCIENTIST Unavailable Liza Oglesby MA,CCC-EXTRACT MIXER Unavailable Unavailable Edilberto Matute MD Unavailable Unavailable Mckay Walters MD Unavailable Marianne Rsoario MA,CCC-EXTRACT MIXER Unavailable Unavailable Clint Ayoub RN Unavailable Unavailable Geetha Diez MA,CCC-EXTRACT MIXER Unavailable Unavailable Mckay Nathan PA-C Unavailable Evert [...] Care Team Description 02/06/2018 Documentation [facility] Shadi Henson Test/ procedure (Holter [address] placed on patient) [place] [address] Social History Tobacco Use Types Packs/Day Years [...] * Shadi Henson - 02/06/2018 11:41 AM DOCUMENT MANAGEMENT CONSULTANT Ordering Physician:Dr. Evy Jama Number:[id number] Hours:48 Dx:PVC's Location:[facility] Lock Master applied Holter:TH in this encounter Plan of Treatment Not on fileas of this encounter Visit Diagnoses Not on filein this encounter
--- OUTSIDE RECORDS SUMMARY | 2018-05-02 11:46 | XMS REPORT | Encounter Summary ---
Author Author [facility] Organization [facility] Address Unknown Phone Unavailable Care Team Providers Care Lead Tinner Name Role Phone Michael Caro MD Unavailable Tia España MD Unavailable Meera Ruano MD Unavailable Sonia Cano MD Unavailable Telma Malcolm TALENT ANALYST-BC Unavailable Vincent Quintero MD Unavailable Unavailable Con Rosas MD Unavailable Jesus Tai MD Unavailable Unavailable Murray Russo MD Unavailable Cdoi Aguirre Unavailable Unavailable Mckay Frias MD Unavailable Siddharth Cortes MD Unavailable Leatha Rajan RN Unavailable Unavailable Nuria Daniel RN Unavailable Unavailable Kati Guerrero TALENT ANALYST Unavailable Dorys Colunga RN Unavailable Jasmyn Carrasco Unavailable Unavailable Bhavana Haddad TALENT ANALYST-INSPECTOR RUBBER STAMP DIE Unavailable Liza Oglesby MA,CCC-PREBOARDER Unavailable Unavailable Edilberto Matute MD Unavailable Unavailable Mckay Walters MD Unavailable Marianne Rosario MA,CCC-PREBOARDER Unavailable Unavailable Clint Ayoub RN Unavailable Unavailable Geetha Diez MA,CCC-PREBOARDER Unavailable Unavailable Mckay Nathan PA-C Unavailable Evert Jefferson MD Unavailable Serenity Carter MD Unavailable Piedad Oliver RN Unavailable Unavailable Vivi Nelson MD Unavailable Morena Scanlon MD Unavailable Clarence Brink MD Unavailable Jess Savage DO Unavailable Liza Sheth Unavailable Safia Mancia MD PCP Reason for Visit * Reason Comments Follow-up Phone Call Encounter Details Date Type Department Care Team Description 02/09/2018 Telephone [place] Wal[place] MD Follow-up Phone Call [facility]habilitative Medicine [address] [facility] [address] [place] [address] [place] [address] [phone] Social History Tobacco Use Types Packs/Day Years [...]
--- OUTSIDE RECORDS SUMMARY | 2018-05-02 11:46 | XMS REPORT | Encounter Summary ---
Author Author [facility] Organization [facility] Address Unknown Phone Unavailable Care Team Providers Care Knockup Worker Name Role Phone Michael Caro MD Unavailable Tia España MD Unavailable Meera Ruano MD Unavailable Sonia Cano MD Unavailable Telma Malcolm PLATE WASHER-BC Unavailable Vincent Quintero MD Unavailable Unavailable Con Rosas MD Unavailable Jesus Tai MD Unavailable Unavailable Murray Russo MD Unavailable Codi Aguirre Unavailable Unavailable Mckay Frias MD Unavailable Siddharth Cortes MD Unavailable Leatha Rajan RN Unavailable Unavailable Nuria Daniel RN Unavailable Unavailable Kati Guerrero PLATE WASHER Unavailable Dorys Colunga RN Unavailable Jasmyn Carrasco Unavailable Unavailable Bhavana Haddad PLATE WASHER-DEVELOPMENT TECHNOLOGIST Unavailable Liza Oglesby MA,CCC-TARGETING ACQUISITION OFFICER Unavailable Unavailable Edilberto Matute MD Unavailable Unavailable Mckay Walters MD Unavailable Marianne Rosario MA,CCC-TARGETING ACQUISITION OFFICER Unavailable Unavailable Clint Ayoub RN Unavailable Unavailable Geetha Diez MA,CCC-TARGETING ACQUISITION OFFICER Unavailable Unavailable Mckay Nathan PA-C Unavailable Evert Jefferson MD Unavailable Serenity Carter MD Unavailable Piedad Oliver RN Unavailable Unavailable Vivi Nelson MD Unavailable Morena Scanlon MD Unavailable Clarence Brink MD Unavailable Jess Savage DO Unavailable Liza Sheth Unavailable Safia Mancia MD PCP Reason for Visit * Reason Comments Follow-up Phone Call Encounter Details Date Type Department Care Team Description 02/10/2018 Telephone Paulina Banegas MD Follow-up Phone Call Rehabilitative Medicine [address] [facility] [address] [place] [address] [place] [address] [phone] Social History Tobacco Use Types Packs/Day Years [...] Telephone Encounter - Janki Sorto RN - 02/10/2018 1:03 PM CDT Nurse received v/m from Fidel asking for callback. Nurse returned call Fidel was calling from [facility] in [place], [place] where he is inpatient for rehab after spending several days at in the neuro ICU beginning 01/30. Fidel wanted to update Dr. Linton, stated they have not determined what caused his symptoms on left side - swollen eye 1/2 shut, increased head swelling, weakness in left extremities, weak voice. Per Fidel, stroke was ruled out. Nurse asked patient to please update us to his plan of care as it develops, patient v/u. Patient also denies further needs at this time from this office. in this encounter Plan of Treatment Not on fileas of this encounter Visit Diagnoses Not on filein this encounter
--- OUTSIDE RECORDS SUMMARY | 2018-05-02 11:46 | XMS REPORT | Encounter Summary ---
Author Author [facility] Organization [facility] Address Unknown Phone Unavailable Care Team Providers Care Flaker Tender Name Role Phone Michael Caro MD Unavailable Tia España MD Unavailable Meera Ruano MD Unavailable Sonia Cano MD Unavailable Telma Malcolm INHALATION THERAPY TEACHER-BC Unavailable Vincent Quintero MD Unavailable Unavailable Con Rosas MD Unavailable Jesus Tai MD Unavailable Unavailable Murray Russo MD Unavailable Codi Aguirre Unavailable Unavailable Mckay Frias MD Unavailable Siddharth Cortes MD Unavailable Leatha Rajan RN Unavailable Unavailable Nuria Daniel RN Unavailable Unavailable Kati Guerrero INHALATION THERAPY TEACHER Unavailable Dorys Colunga RN Unavailable Jasmyn Carrasco Unavailable Unavailable Bhavana Haddad INHALATION THERAPY TEACHER-TAX AGENT Unavailable Liza Oglesby MA,CCC-CONTRACT PARALEGAL Unavailable Unavailable Edilberto Matute MD Unavailable Unavailable Mckay Walters MD Unavailable Marianne Rosario MA,CCC-CONTRACT PARALEGAL Unavailable Unavailable Clint Ayoub RN Unavailable Unavailable Geetha Diez MA,CCC-CONTRACT PARALEGAL Unavailable Unavailable Mckay Nathan PA-C Unavailable Evert Jefferson MD Unavailable Serenity Carter MD Unavailable Piedad Oliver RN Unavailable Unavailable Vivi Nelson MD Unavailable Morena Scanlon MD Unavailable Clarence Brink MD Unavailable Janette Jess DO Unavailable Liza Sheth Unavailable Safia Mancia MD PCP Reason for Visit * Reason Comments Medication Question Encounter Details Date Type Department Care Team Description 02/09/2018 Telephone [place] Medication Question Rehabilitative Medicine [address] [facility] [address] [place] [address] [place] [address] [phone] Social History Tobacco Use Types Packs/Day Years [...] Telephone Encounter - Janki Sorto RN - 02/09/2018 9:35 AM CDT Nurse called patient, left v/m for callback to nurse line [phone] - nurse received clarification fax from [facility] indicating possible duplicate therapy for Ibuprofen from a historical provider & Meloxicam from Dr. Linton. Nurse to clarify usage with patient. in this encounter Plan of Treatment Not on fileas of this encounter Visit Diagnoses Not on filein this encounter
--- OUTSIDE RECORDS SUMMARY | 2018-05-02 11:46 | XMS REPORT | Encounter Summary ---
Author Author [facility] Organization [facility] Address Unknown Phone Unavailable Care Team Providers Care Webbing Weaver Name Role Phone Michael Caro MD Unavailable Tia España MD Unavailable Meera Ruano MD Unavailable Sonia Cano MD Unavailable Telma Malcolm IT SYSTEMS ENGINEER-BC Unavailable Vincent Quintero MD Unavailable Unavailable Con Rosas MD Unavailable Jesus Tai MD Unavailable Unavailable Murray Russo MD Unavailable Codi Aguirre Unavailable Unavailable Mckay Frias MD Unavailable Siddharth Cortes MD Unavailable Leatha Rajan RN Unavailable Unavailable Nuria Daneil RN Unavailable Unavailable Kati Guerrero IT SYSTEMS ENGINEER Unavailable Dorys Colunga RN Unavailable Jasmyn Carrasco Unavailable Unavailable Bhavana Haddad IT SYSTEMS ENGINEER-MANUFACTURING PLANT TECHNICIAN Unavailable Liza Oglesby MA,CCC-LINER ROLL CHANGER Unavailable Unavailable Edilberto Matute MD Unavailable Unavailable Mckay Walters MD Unavailable Marianen Rosario MA,CCC-LINER ROLL CHANGER Unavailable Unavailable Clint Ayoub RN Unavailable Unavailable Geetha Diez MA,CCC-LINER ROLL CHANGER Unavailable Unavailable Mckay Nathan PA-C Unavailable Evert Jefferson MD Unavailable Serenity Carter MD Unavailable Piedad Oliver RN Unavailable Unavailable Vivi Nelson MD Unavailable Morena Scanlon MD Unavailable Clarence Brink MD Unavailable Janette Jess DO Unavailable Liza Sheth Unavailable Safia Mancia MD PCP Reason for Referral * Consult, Test & Treat Status Reason Specialty Diagnoses / Referred By Referred To Procedures Contact Contact New Request Diagnoses Abdelrahman Ratliff, PVC (premature MD ventricular [address] [place], [place] [address] ECG MONITOR Phone: CONNECT + SCAN [phone] * Consult, Test & Treat Status Reason Specialty Diagnoses / Referred By Referred To Procedures Contact Contact New Request Diagnoses Abdelrahman Ratliff, PVC (premature MD ventricular [address] [place], [place] [address] ECG MONITOR Phone: CONNECT + SCAN [phone] Reason for Visit * Consult, Test & Treat Status Reason Specialty Diagnoses / Referred By Referred To Procedures Contact Contact New Request Diagnoses Abdelrahman Ratliff, PVC (premature MD ventricular [address] [place] [address] ECG MONITOR Phone: CONNECT + SCAN [phone] Encounter Details Date Type Department Care Team Description 02/06/2018 [facility] Abdelrahman Ratliff MD Encounter [address] [place] [address] [place] [address] [address] [place] [address] [phone] Social History Tobacco Use Types Packs/Day Years [...] impairment: No 02/06/2018 as of this encounter Medications at Time [...] Tab 3 05/02/2016 mg tablet ONCE DAILY glimepiride (AMARYL) 2 mg Take 2 mg [...] by mouth (PRILOSEC) 20 mg capsule daily. potassium chloride SR Take [...] mg by mouth twice mg tablet daily. gabapentin (NEURONTIN) Take 1 tablet by mouth 90 tablet 3 12/29/2017 04/02/2018 800 mg tablet every 8 hours. phenytoin SR (DILANTIN) Take 3 capsules by mouth 270 capsule 3 201604/02/2018 100 mg capsule daily. trimethoprim/sulfamethoxa Take 1 tablet by mouth 0 02/06/20182017 zole (BACTRIM DS) 160/800 twice daily for 14 days. mg tablet as of this encounter Plan of Treatment Not on fileas of this encounter Results * [employer] ECG MONITOR CONNECT + [...] is normal and there are no pauses in this encounter Visit Diagnoses Diagnosis PVC (premature ventricular contraction) Other premature beats
--- OUTSIDE RECORDS SUMMARY | 2018-05-02 11:46 | XMS REPORT | Encounter Summary ---
Author Author [facility] Organization [facility] Address Unknown Phone Unavailable Care Team Providers Care Senior Abap Developer Name Role Phone Michael Caro MD Unavailable Tia España MD Unavailable Meera Ruano MD Unavailable Sonia Cano MD Unavailable Telma Malcolm VEST FRONT PRESSER-BC Unavailable Vincent Quintero MD Unavailable Unavailable Con Rosas MD Unavailable Jesus Tai MD Unavailable Unavailable Murray Russo MD Unavailable Codi Aguirre Unavailable Unavailable Mckay Frias MD Unavailable Siddharth Cortes MD Unavailable Leatha Rajan RN Unavailable Unavailable Nuria Daniel RN Unavailable Unavailable Kati Guerrero VEST FRONT PRESSER Unavailable Dorys Colunga RN Unavailable Jasmyn Carrasco Unavailable Unavailable Bhavana Haddad VEST FRONT PRESSER-SLPS Unavailable Liza Oglesby MA,CCC-TRAVOGRAPH OPERATOR Unavailable Unavailable Edilberto Matute MD Unavailable Unavailable Mckay Walters MD Unavailable Marianne Rosario MA,CCC-TRAVOGRAPH OPERATOR Unavailable Unavailable Clint Ayoub RN Unavailable Unavailable Geetha Diez MA,CCC-TRAVOGRAPH OPERATOR Unavailable Unavailable Mckay Nathan PA-C Unavailable [...] [address] [facility] [place] [address] ECG MONITOR Phone: CONNECT + SCAN [phone] Encounter Details Date Type Department Care Team Description 02/17/[address] [facility] Abdelrahman Ratliff MD PVC ( premature Orders [address] [place] [address] contraction ) [address] [place] [address] [place] [address] [phone] Social History Tobacco Use Types Packs/Day Years [...]
--- OUTSIDE RECORDS SUMMARY | 2018-05-02 11:50 | XMS REPORT | Encounter Summary ---
Author Author [facility] Organization [facility] Address Unknown Phone Unavailable Care Team Providers Care Mold Sander Name Role Phone Michael Caro MD Unavailable Tia España MD Unavailable Meera Ruano MD Unavailable Sonia Cano MD Unavailable Telma Malcolm PRODUCT HANDLER-BC Unavailable Vincent Quintero MD Unavailable Unavailable Con Rosas MD Unavailable Jesus Tai MD Unavailable Unavailable Murray Russo MD Unavailable Codi Aguirre Unavailable Unavailable Mckay Frias MD Unavailable Siddharth Cortes MD Unavailable Leatha Rajan RN Unavailable Unavailable Nuria Daniel RN Unavailable Unavailable Kati Guerrero PRODUCT HANDLER Unavailable Dorys Colunga RN Unavailable Jasmyn Carrasco Unavailable Unavailable Bhavana Haddad PRODUCT HANDLER-RETAIL LINK ANALYST Unavailable Liza Oglesby MA,CCC-ASSEMBLY LINE UPHOLSTERER Unavailable Unavailable Edilberto Matute MD Unavailable Unavailable Mckay Walters MD Unavailable Marianne Rosario MA,CCC-ASSEMBLY LINE UPHOLSTERER Unavailable Unavailable Clint Ayoub RN Unavailable Unavailable Geetha Diez MA,CCC-ASSEMBLY LINE UPHOLSTERER Unavailable Unavailable Mckay Nathan PA-C Unavailable Evert [...] Date Type Department Care Team Description 02/05/2018 [facility] Cardiology Gerry Mccoy MD Encounter [address] [place] [address] [place] [address] [place] [address] [place] [address] [phone] Social History Tobacco Use Types Packs/Day Years [...] 04/02/2018 800 mg tablet every 8 hours. HYDROcodone/acetaminophen Take 1 tablet by mouth 40 tablet 0 201702/06/2018 (NORCO) 5/325 mg every 8 hours as needed tabletIndications: Neck for Pain pain phenytoin SR (DILANTIN) Take 3 capsules by [...] mg, Intravenous, ONCE, 1 dose, Gisella 09:05 APPOINTMENT SETTER 02/05/18 at 0930 DOBUTamine (DOBUTREX) 250 mg in sodium Given - New 02/05/2018 40 345 mL/ hr chloride 0.9% (NS) 250 mL IVPB Bag 08:56 APPOINTMENT SETTER mcg/kg/min 1-20 mcg/kg/min 133.1 kg (8.6249-172.4976 mL/hr, rounded to 8.6-172.5 mL/hr) 270 mL, at 8.6-172.5 mL/hr, Intravenous, ONCE, 1 dose, Gisella 02/05/18 at 0930 in this encounter
--- OUTSIDE RECORDS SUMMARY | 2018-05-02 11:50 | XMS REPORT | Encounter Summary ---
Author Author [facility] Organization [facility] Address Unknown Phone Unavailable Care Team Providers Care Sub Assembly Team Worker Name Role Phone Michael Caro MD Unavailable Tia España MD Unavailable Meera Ruano MD Unavailable Sonia Cano MD Unavailable Telma Malcolm RECORDS COORDINATOR-BC Unavailable Vincent Quintero MD Unavailable Unavailable Con Rosas MD Unavailable Jesus Tai MD Unavailable Unavailable Murray Russo MD Unavailable Codi Aguirre Unavailable Unavailable Andrews Thompson MD Unavailable Siddharth Cortes MD Unavailable Leatha Rajan RN Unavailable Unavailable Nuria Daniel RN Unavailable Unavailable Kati Guerrero RECORDS COORDINATOR Unavailable Dorys Colunga RN Unavailable Jasmyn Carrasco Unavailable Unavailable Bhavana Haddad RECORDS COORDINATOR-CAREER COUNSELOR Unavailable Liza Oglesby MA,CCC-PLATFORM MATERIAL HANDLING SUPERVISOR Unavailable Unavailable Edilberto Matute MD Unavailable Unavailable Andrews Walters MD Unavailable Marianne Rosario MA,CCC-PLATFORM MATERIAL HANDLING SUPERVISOR Unavailable Unavailable Clint Ayoub RN Unavailable Unavailable Geetha Diez MA,CCC-PLATFORM MATERIAL HANDLING SUPERVISOR Unavailable Unavailable Andrews Nathan PA-C Unavailable Evert Jefferson MD Unavailable [...] Care Team Description 01/30/2018 Hospital CA7 Siddharth Zhang MD Hygroma - Encounter [address] [facility] [address] 02/06/2018 [place] [address] [address] [place] [address] [phone] Social History Tobacco Use Types Packs/Day Years Used Date Never Smoker Smokeless Tobacco: Never Used Alcohol Use Drinks/Week oz/Week Comments No Sex Assigned at Date Recorded Not on file as of this encounter Last Filed Vital Signs Vital Sign Reading Time Taken Blood Pressure 121/50 02/06/2018 7:57 AM CHIEF STEWARD/STEWARDESS Pulse 63 02/06/2018 8:57 AM CHIEF STEWARD/STEWARDESS Temperature 36.9 C (98.5 F) 02/06/2018 7:57 AM CHIEF STEWARD/STEWARDESS Respiratory Rate - - Oxygen Saturation 97% 02/06/2018 8:00 AM CHIEF STEWARD/STEWARDESS Inhaled Oxygen - - Concentration Weight 133.1 kg (293 lb 6.9 oz) 02/04/2018 7:19 AM CHIEF STEWARD/STEWARDESS Height 185.4 cm (6' 1") 01/31/2018 11:46 AM CHIEF STEWARD/STEWARDESS Body Mass Index 38.71 02/04/2018 7:19 AM CHIEF STEWARD/STEWARDESS in this encounter Functional Status Functional Status [...] No 02/06/2018 as of this encounter Discharge Summaries * Minerva Mason APRN - 02/06/2018 12:45 PM CHIEF STEWARD/STEWARDESS Formatting of this note may be different from the original. Physician Discharge Summary Name: Fidel Henriquez Date Of : 1950 Age: 67 years Admit date: 01/30/2018 Discharge date: 02/06/2018 Attending Physician: Siddharth Zhang Service: Surgery-Neuro Physician Summary completed by: Minerva Mason APRN Reason for hospitalization: acute left sided weakness, facial pain and swelling Significant PMH: Past Medical History: Diagnosis Date Acute myocardial infarction, unspecified site 1979 Arthritis Attempted suicide ([facility]) 2004 Overdose CAD (coronary artery disease) Chronic mastoiditis of left side Chronic otitis media ED (erectile dysfunction) Enlarged prostate Epilepsy ([facility]) Headache(784.0) Headaches Hypertension Infection bone flap Morbid obesity (HCC) Neuropathy, lower extremity Bilateral Non-melanoma skin cancer АНДРЕЙ (obstructive sleep apnea) uses C-PAP Pruritus - disorder bilateral arms, shoulders. PVC (premature ventricular contraction) 02/01/2018 Seizure ([facility]) Type 2 diabetes mellitus with other specified complication ([facility]) 02/01/2018 Weakness of left side of body x3 years following seizures. Wound infection chronic } Allergies: Patient has no known allergies. Admission Physical Exam notable for: General Appearance: No acute distress Lungs: Good [...] sign bilaterally Gait: Deferred Cerebellar: No dysmetria Admission Lab/Radiology studies notable for: MRI head w/ w/o contrast 'IMPRESSION 1. [...] neuritis. 5. No evidence of acute infarct." Brief Hospital Course: The patient was admitted and the following issues were addressed during this hospitalization: (with pertinent details). Patient had a complex prolonged hospital stay. Please review medical record for complete details of hospitalization. Patient admitted with complaints of new onset left facial and eye swelling, face pain, slurred speech, and left arm/leg weakness, also has complaints of crushing sternal chest pain. Has chronic left facial pain treated by Dr. Linton with left face botox injections, known chronic bilateral otitis media and left cavity. History of left temporal lobectomy for seizure disorder and reported and documented weakness of left extremities for 1 year. Neurology work up completed on admission for stroke, MRI head without evidence of ischemic infarct. Initial cardiac work up with atypical chest pain that is reproducible with palpation, troponins were negative. Echo cardiogram with EF 50 -55%, mild concentric LVH. Otolaryngology finding left otitis externa/media with possible mastoiditis, started on floxin drops to ears and IV antibiotics. Ophthalmology evaluation revealed no pupil abnormalities or infection. LP work completed for rule out of meningitis, cultures were negative. Rehab medicine recommending acute inpatient rehab . Progressing towards discharge, but patient continued to have episodes of chest pain, cardiology reevaluation with stress test completed, which was negative. Plan for 48 hour holter monitor to determine PVC burden. Outpatient cardiology appointment set up. Psych following for known history depression and unclear pathology of all symptoms. Patient felt to be stable and no medication changes were indicated. Patient medically ready for discharge to [facility], appropriate follow ups made. Condition at Discharge: Stable Discharge Diagnoses: Hospital Problems Active Problems Morbid obesity (HCC) АНДРЕЙ (obstructive sleep apnea) HTN (hypertension) Hygroma Other chest pain Type 2 diabetes mellitus with other specified complication (HCC) PVC (premature ventricular contraction) Otitis externa of left ear Surgical Procedures: None Significant Diagnostic Studies and Procedures: Lumbar Puncture, CT head, CT max face/aud canal, MRI head and orbits, Echo cardiogram, Cardiac stress test Consults: Neuro ICU, Cardiology, ENT, Ophthalmology, Rehab Medicine, Psych, Neurology Patient Disposition: Outside Rehabilitation Facility Patient instructions/medications: Activity as Tolerated It is important to keep increasing your activity level after you leave the hospital. Moving around can help prevent blood clots, lung infection (pneumonia ) and other problems. Gradually increasing the number of times you are up moving around will help you return to your normal activity level more quickly. Continue to increase the number of times you are up to the chair and walking daily to return to your normal activity level. Begin to work toward your normal activity level. As tolerated, slowly increase activities. INSTRUCTIONS, ADDITIONAL Continue physical, occupational and speech in rehab. Return Appointment [address] [place] [address] Natali Ayala Appointment date: 03/12/2018 Appointment time: 9:00 AM Report These Signs and Symptoms Please contact your doctor if you have any of the following symptoms: Please contact your doctor if you have any of the following symptoms: temperature higher than 101.5 degrees F, uncontrolled pain, persistent nausea and/or vomiting, difficulty breathing, chest pain, severe abdominal pain, unable to urinate, unable to have bowel movement, drainage with a foul odor, severe headache, weakness, or other concern. Return Appointment Please follow up with your PCP within 1-2 weeks after discharge. Outside Provider snowmaker Questions About Your Stay For questions or concerns regarding your hospital stay. Call [phone] Discharging attending physician: SIDDHARTH ZHANG [[id number]] Diabetic Diet You should eat between 2100 and 2400 calories per day. This is equal to 75g ( grams) of carbohydrates per meal, and 30g of carbohydrates for a bedtime snack. If you have questions about your diet after you go home, you can call a dietitian at [phone]. Opioid (Narcotic) Safety Information OPIOID (NARCOTIC) PAIN MEDICATION SAFETY We care about your comfort, and believe you need opioid medications at this time to treat your pain. An opioid is a strong pain medication. It is only available by prescription for moderate to severe pain. Usually these medications are used for only a short time to treat pain, but sometimes will be prescribed for longer. Talk with your doctor or nurse about how long they expect you to need this medication. When used the right way, opioids are safe and effective medications to treat your pain, even when used for a long time. Yet, when used in the wrong way, opioids can be dangerous for you or others. Opioids do not work for everyone. Most patients do not get full relief of their pain from opioid medication; full relief of your pain may not be possible. For your safety, we ask you to follow these instructions: *Only take your opioid medication as prescribed. If your pain is not controlled with the prescribed dose, or the medication is not lasting long enough, call your doctor. *Do not break or crush your opioid medication unless your doctor or pharmacist says you can. With certain medications, this can be dangerous, and may cause . *Never share your medications with others, even if they appear to have a good reason. Never take someone else's pain medication-this is dangerous, and illegal (a crime). Overdoses and deaths have occurred. *Keep your opioid medications safe, as you would with ken, in a lock box or similar container. *Make sure your opioids are going to be secure, especially if you are around children or teens. *Talk with your doctor or pharmacist before you take other medications. *Avoid driving, operating machinery, or drinking alcohol while taking opioid pain medication. This may be unsafe. Pain medications can cause constipation. Constipation is bowel movements that are less often than normal. Stools often become very hard and difficult to pass. This may lead to stomach pain and bloating. It may also cause pain when trying to use the bathroom. Constipation may be treated with suppositories, laxatives or stool softeners. A diet high in fiber with plenty of fluids helps to maintain regular, soft bowel movements. Additional Discharge Instructions Please monitor Potassium and Magnesium lab work, Keep K (potassium) >4.0, Magnesium >2.0 Return Appointment Follow up with neurosurgery as needed. Dr. Zhang or Dr. Cortes. May call with questions or if you need to schedule. Provider SIDDHARTH ZHANG [[id number]] Return Appointment Continue follow up as scheduled. Call with concerns. Provider PSYCHIATRIC, ADULT [[id number]] Return Appointment Please call [phone] with questions or concerns. It is important you follow up to discuss medications for left ear infection and any further treatment needs. Provider ANDREWS THOMPSON [[id number]] Current Discharge Medication List START taking these medications Details acetaminophen (TYLENOL) 325 mg tablet Take 2 tablets by mouth every 4 hours as needed. Refills: 0 PRESCRIPTION TYPE: No Print aspirin EC 81 mg tablet Take 1 tablet by mouth daily. Take with food. Qty: 90 tablet, Refills: 3 PRESCRIPTION TYPE: No Print atorvastatin (LIPITOR) 20 mg tablet Take 1 tablet by mouth at bedtime daily. Qty: 30 tablet, Refills: 2 PRESCRIPTION TYPE: Print carboxymethylcellulose (REFRESH PLUS) 0.5 % dpet Apply 1 drop to both eyes four times daily. PRESCRIPTION TYPE: No Print erythromycin (ROMYCIN) ophthalmic ointment Apply 0.5 inches to both eyes at bedtime daily. Refills: 0 PRESCRIPTION TYPE: No Print heparin (porcine) PF 5,000units/0.5mL injection syringe Inject 0.5 mL under the skin every 8 hours. DVT prophylaxis, continue until mobilizing well PRESCRIPTION TYPE: No Print methylPREDNIsolone (MEDROL DOSEPAK) 4 mg tablet Take medication as directed on package for 6 days. Take with food. Qty: 21 tablet, Refills: 0 PRESCRIPTION TYPE: No Print nitroglycerin (NITROSTAT) 0.[address] 1 tablet under tongue every 5 minutes as needed for Chest Pain. Max of 3 tablets, call 911. Qty: 25 tablet, Refills: 3 PRESCRIPTION TYPE: No Print ofloxacin (FLOXIN) 0.3 % otic solution Place 4 drops in affected ear(s) as directed twice daily. Continue until follow up with Dr. Thompson on 02/25/18. Discuss at follow up visit. Refills: 0 PRESCRIPTION TYPE: No Print senna/docusate (SENOKOT-S) 8.6/50 mg tablet Take 1 tablet by mouth twice daily. Refills: 0 PRESCRIPTION TYPE: No Print trimethoprim/sulfamethoxazole (BACTRIM DS) 160/800 mg tablet Take 1 tablet by mouth twice daily for 14 days. Refills: 0 PRESCRIPTION TYPE: No Print CONTINUE these medications which have been CHANGED or REFILLED Details docusate (COLACE) 100 mg capsule Take 1 capsule by mouth twice daily. Qty: 180 capsule, Refills: 3 PRESCRIPTION TYPE: No Print HYDROcodone/acetaminophen (NORCO) 5/325 mg tablet Take 1-2 tablets by mouth every 4 hours as needed Refills: 0 PRESCRIPTION TYPE: No Print CONTINUE these medications which have NOT CHANGED Details allopurinol (ZYLOPRIM) 100 mg tablet Take 100 mg by mouth daily. PRESCRIPTION TYPE: Historical Med amLODIPine (NORVASC) 5 mg tablet Take 5 mg by mouth daily. PRESCRIPTION TYPE: Historical Med atenolol (TENORMIN) 100 mg tablet Take 1 Tab by mouth daily. Qty: 30 Tab, Refills: 0 PRESCRIPTION TYPE: Normal baclofen (LIORESAL) 10 mg tablet Take 10 mg by mouth three times daily. PRESCRIPTION TYPE: Historical Med dapagliflozin 10 mg tab Take 1 tablet by mouth daily. PRESCRIPTION TYPE: Historical Med finasteride (PROSCAR) 5 mg tablet TAKE 1 TABLET BY MOUTH ONCE DAILY Qty: 90 Tab, Refills: 3 PRESCRIPTION TYPE: Normal Comments: Generic For:PROSCAR 5MG 05/02/2016 9:15:05 AM gabapentin (NEURONTIN) 800 mg tablet Take 1 tablet by mouth every 8 hours. Qty: 90 tablet, Refills: 3 PRESCRIPTION TYPE: Normal glimepiride (AMARYL) 2 mg tablet Take 2 mg by mouth twice daily. PRESCRIPTION TYPE: Historical Med ibuprofen (MOTRIN) 600 mg tablet Take 600 mg by mouth every 12 hours as needed. PRESCRIPTION TYPE: Historical Med lidocaine (LIDODERM) 5 % topical patch Apply 1 patch topically to affected area every 24 hours. Apply patch for 12 hours, then remove for 12 hours before repeating. Qty: 90 patch, Refills: 3 PRESCRIPTION TYPE: Normal lisinopril (PRINIVIL; ZESTRIL) 10 mg tablet Take 20 mg by mouth daily. PRESCRIPTION TYPE: Historical Med loratadine (CLARITIN) 10 mg tablet Take 10 mg by mouth daily. PRESCRIPTION TYPE: Historical Med meloxicam (MOBIC) 7.5 mg tablet Take 1 tablet by mouth daily. Qty: 90 tablet, Refills: 3 PRESCRIPTION TYPE: Normal Associated Diagnoses: Neck pain metFORMIN (GLUCOPHAGE) 500 mg tablet Take 500 mg by mouth twice daily with meals. PRESCRIPTION TYPE: Historical Med mirtazapine (REMERON) 30 mg tablet Take 1 and 1/2 tablet at night for mood, anxiety and sleep Qty: 45 tablet, Refills: 1 PRESCRIPTION TYPE: Normal omeprazole DR(+) (PRILOSEC) 20 mg capsule Take 20 mg by mouth daily. PRESCRIPTION TYPE: Historical Med phenytoin SR (DILANTIN) 100 mg capsule Take 3 capsules by mouth daily. Qty: 270 capsule, Refills: 3 PRESCRIPTION TYPE: Normal potassium chloride SR (K-DUR) 20 mEq tablet Take 20 mEq by mouth daily. PRESCRIPTION TYPE: Historical Med sertraline (ZOLOFT) 100 mg tablet Take 300mg in AM (3x 100mg) for mood, anxiety and skin picking Qty: 90 tablet, Refills: 1 PRESCRIPTION TYPE: Normal Comments: Generic For:ZOLOFT 100MG 09/29/2017 2:12:53 PM sitaGLIPtin (JANUVIA) 100 mg tab tablet Take 100 mg by mouth daily. PRESCRIPTION TYPE: Historical Med torsemide(+) (DEMADEX) 20 mg tablet Take 20 mg by mouth twice daily. PRESCRIPTION TYPE: Historical Med The following medications were removed from your list. This list includes medications discontinued this stay and those removed from your prior med list in our system empagliflozin (JARDIANCE) 25 mg tab VIAGRA 100 mg tablet Scheduled appointments: Feb 25, 2018 10:45 AM CDT AUDIO TESTING PATIENT with ROSALINDA Gonsales [facility] ([facility]) 3rd Floor Pod [address] [facility] Med Office [facility] [address] Feb 25, 2018 11:20 AM CDT Return Patient with Andrews Thompson MD [facility] ([facility]) 3rd Floor [address] [facility] Med Office [facility] [address] Mar 06, 2018 2:45 PM CDT RETURN PT LONG with Liza Lee DO [facility] ([facility]) 6th Floor Pod [address] [facility] [id number] April 02, 2018 2:30 PM CDT Return Patient with Sonia Cano MD [facility] ([facility]) [place] [address] [facility] [address] April 08, 2018 3:30 PM CDT PROCEDURE 15 with Paulina Linton MD [facility] ([facility]) [address] [facility] [address] Pending items needing follow up: none Signed: Minerva Mason APRN 02/13/2018 cc: Primary Care Physician: Safia Mancia Verified Referring physicians: Safia Mancia MD Additional provider(s): Dr. Natali Ayala at [facility] in this encounter Discharge Instructions * Patient Instructions - Caroline Staton RN - 02/02/2018 11:16 AM CHIEF STEWARD/STEWARDESS INTERVENTIONAL RADIOLOGY DISCHARGE INSTRUCTIONS LUMBAR PUNCTURE A [...] or concerns related to the procedure, call [phone] for Friday-Friday 7-5. After-hours and weekends, please call [phone] and ask for the Interventional Refrigeration Manager on-call. in this encounter Medications at Time [...] daily. Continue until follow up with Dr. Thompson on 02/25/18. Discuss at follow up visit. [...] Licha Carrizales RN - 02/06/2018 11:38 AM CHIEF STEWARD/STEWARDESS Pt is discharged to [facility]. Report given to DARSHAN Chaves. No scripts [...] states that he lost his cell phone snow blower in the ICU. Provided patient relations phone number to him and will notify my charge nurse. * Minerva Mason APRN - 02/06/2018 10:49 AM CHIEF STEWARD/STEWARDESS Formatting of this note may be different [...] hrs for 14 days. F/U with Dr. Thompson Meningitis 11/04/2011 History of melanoma 11/04/2011 HTN (hypertension) 11/04/2011 Severe episode of recurrent major depressive disorder, without psychotic features ([facility]) 11/04/2011 SIRS (systemic inflammatory response syndrome) ([facility]) 11/03/2011 Respiratory failure ([facility]) 11/03/2011 Hypokalemia 07/15/2011 Pneumocephalus 07/11/2011 Post-occipital carlos hole electrode placement Groin pain, right lower quadrant 05/21/2011 S/p flakita Weakness 04/10/2011 Partial epilepsy with impairment of consciousness, intractable ([facility]) 2009 S/p left temporal lobectomy in 08/2011. Patient has been seizure free since then. Chronic otitis media 07/31/2010 Hearing loss, mixed, bilateral 07/31/2010 Ataxia 02/22/2008 Morbid obesity ([facility]) 02/22/2008 АНДРЕЙ (obstructive sleep apnea) 02/22/2008 Neuropathy Peripheral 02/10/2008 Continue current care; telemetry for monitoring per cardiology Cardiology following with recommendations -Atypical chest pain. Possibly musculoskeletal in nature. Consider treatment with NSAIDs. -Holter monitor ordered with results to be sent to Dr. Natali Ayala at [facility] in [place], [place] -F/u appt with Dr. Ayala on [...] for rehab Discharge planning - planning for [facility] today, transportation set up per Prophylaxis: A)GI: PPI B) Lines: No C) Urinary Catheter: No D) Antibiotic Usage: Yes; Infection present or suspected: Otitis E) VTE: Pharmacological prophylaxis; SQ Heparin and Mechanical prophylaxis; Sequential compression device F) Restraints: Patient assessed for need for restraints. Please call [phone] with any questions. Minerva Mason APRN * Gerry Mccoy MD - 02/06/2018 10:34 AM CHIEF STEWARD/STEWARDESS Formatting of this note may be different [...] mild AI -Pt reports history of "small" MO, unable to explain details, Denies history of [...] is negative for ischemia. 2. PVCs -continue HONING JOB SETTER Atenolol 100mg daily -frequent ventricular bigeminy on telemetry and EKG 3. Hypertension - stable -HONING JOB SETTER Atenolol 100mg daily, Norvasc 5mg, Lisinopril 20mg daily, Torsemide 20mg BID 4. DM2 -No HONING JOB SETTER statin > now on atorvastatin 20mg 5. [...] be sent to Dr. Natali Ayala at [facility] in [place], [place] -F/u appt with Dr. Ayala on [...] examined with Cardiology attending, Dr. Nadine Crawford, OSCAR-C ([id number]) Subjective: Doing okay today. Still reporting CP [...] MINUTE (02/06 757) SpO2: 97 % (02/06 08) O2 Delivery: CPAP/BiPAP (Pt Owned) (02/06 757) BP: (109-130)/(44-98) Temp: [36.2 C (97.2 F)-36.9 C (98.5 F)] Pulse: [57-73] Respirations: [16 PER MINUTE-19 PER MINUTE] SpO2: [95 %-98 %] O2 Delivery: CPAP/BiPAP (Pt Owned) Intensity Pain Scale 0-10 (Pain 1): Asleep (02/06/18 0400) Intake/Outpur Summary: (Last 24 hours) Intake/Output Summary (Last 24 hours) at 02/06/18 0810 Last data filed at 02/06/18756 Gross per 24 hour Intake 930 ml [...] is negative for ischemia. France Crawford APRN ([id number]) Staff: I have personally seen and examined [...] * Aristides Augustin - 02/05/2018 3:11 PM CHIEF STEWARD/STEWARDESS Psychology consultation service met with this pt [...] ( SLUMS=21/30). At the patient's request, the funeral attendant spoke at length with the patient's daughter regarding her experiences with the patient. A full consult report will follow. If immediate concerns arise, please do not hesitate to contact this provider. Aristides Augustin, Ph.D. Advanced Clinical Psychology Postdoctoral Fellow Pgr - [phone] * Gerry Mccoy MD - 02/05/2018 2:25 PM CHIEF STEWARD/STEWARDESS Formatting of this note may be different [...] mild AI -Pt reports history of "small" MO, unable to explain details, Denies history of [...] is negative for ischemia. 2. PVCs -continue HONING JOB SETTER Atenolol 100mg daily -frequent ventricular bigeminy on telemetry and EKG 3. Hypertension -HONING JOB SETTER Atenolol 100mg daily, Norvasc 5mg, Lisinopril 20mg daily, Torsemide 20mg BID 4. DM2 -No HONING JOB SETTER statin 5. Obesity 6. Bradycardia > not [...] patient to establish with Dr. Natali Ayala, [facility] in [place], [place]. Also plan for 6 week f/u with Dr. Ratliff here at . Will have Holter report sent to Dr. Ratliff. -Please page MAC @ [phone] to have ZioPatch placed prior to discharge. -consider decreasing full dose aspirin to 81mg. -in light of ongoing bigeminy, please continue to monitor K+ and Mg++ and replete to keep greater than or equal to 4.0 and 2.0, respectively Discussed and examined with Cardiology attending, Dr. Nadine Crawford, RECORDS COORDINATOR-C ([id number]) Subjective: Continues to have constant CP, improved [...] MINUTE (02/05 1410) SpO2: 95 % (02/05 141) O2 Delivery: None (Room Air) (02/05 1410) [...] is negative for ischemia. France Crawford APRN ([id number]) Staff: I have personally seen and examined [...] is to follow up with EP in [facility] [place] with Dr. Ayala to assess PVCs burden on holter. If >20% then may consider antiarrhythmic meds VS ablation. Follow up with Dr. Ratliff in 6 weeks as well. * Margarita Meraz, OT - 02/05/2018 1:16 PM CHIEF STEWARD/STEWARDESS OCCUPATIONAL THERAPY NO TREATMENT NOTE Patient off unit for stress test and unavailable for occupational therapy. OT will continue to follow. Therapist: ISABEL Latham [id number] Date: 02/05/2018 * Minerva Mason APRN - 02/05/2018 10:30 AM CHIEF STEWARD/STEWARDESS Formatting of this note may be different [...] hrs for 14 days. F/U with Dr. Thompson Meningitis 11/04/2011 History of melanoma 11/04/2011 HTN (hypertension) 11/04/2011 Severe episode of recurrent major depressive disorder, without psychotic features ([facility]) 11/04/2011 SIRS (systemic inflammatory response syndrome) ([facility]) 11/03/2011 Respiratory failure ([facility]) 11/03/2011 Hypokalemia 07/15/2011 Pneumocephalus 07/11/2011 Post-occipital carlos hole electrode placement Groin pain, right lower quadrant 05/21/2011 S/p flakita Weakness 04/10/2011 Partial epilepsy with impairment of consciousness, intractable ([facility]) 2009 S/p left temporal lobectomy in 08/2011. Patient has been seizure free since then. Chronic otitis media 07/31/2010 Hearing loss, mixed, bilateral 07/31/2010 Ataxia 02/22/2008 Morbid obesity ([facility]) 02/22/2008 АНДРЕЙ (obstructive sleep apnea) 02/22/2008 Neuropathy [...] rehab Discharge planning - planning for [facility] when medically stable Prophylaxis: A)GI: PPI B) Lines: No C) Urinary Catheter: No D) Antibiotic Usage: Yes; Infection present or suspected: Otitis E) VTE: Pharmacological prophylaxis; SQ Heparin and Mechanical prophylaxis; Sequential compression device F) Restraints: Patient assessed for need for restraints. Please call [phone] with any questions. Minerva Mason APRN * Kati Thomas, PT - 02/05/2018 9:52 AM CHIEF STEWARD/STEWARDESS PHYSICAL THERAPY NOTE Patient was unavailable for physical therapy, off unit for Stress Test. Physical therapy will continue to follow and provide intervention as indicated. Therapist: Kati Thomas, PT Date: 02/05/2018 * Aristides Augustin - 02/05/2018 9:22 AM CHIEF STEWARD/STEWARDESS Psychology consultation and liaison service attempted to meet with pt at 9: 22am. However, pt was off unit completing a stress test (according to nursing staff). This service will return to provide support to pt. Please do not hesitate to page with any immediate concerns. Aristides Augustin Advanced Clinical Psychology Postdoctoral Fellow Pg# - [phone] * Cecily Sanders MD - 02/04/2018 10:29 PM CHIEF STEWARD/STEWARDESS Patient rapid responded for bradycardia and diaphoresis [...] French Skinner, RT - 02/04/2018 9:45 PM CHIEF STEWARD/STEWARDESS Pt assessment revealed bradycardia when pt placed on continuous pulse oximetry monitor for АНДРЕЙ protocol. Verified palpable pulse to be same as monitor in low 30s. Tele monitor was reporting a HR of 70 at the time. Confirmed w/ RN that there was a difference in monitors. Pt assessment also revealed symptoms to include increased fatigue and chest pain/heaviness. HRIS ANALYST called. Post HRIS ANALYST completion pt placed on home CPAP machine w/ 3 lpm O2 bled in. * Katie Mccormack, RN - 02/04/2018 9:40 PM CHIEF STEWARD/STEWARDESS Patient complaining of chest pain, "like someone is sitting on my chest", rating pain 5/10, and diaphoretic. Heart rate manually checked, low 30s. Neurosurgery paged. Rapid response team activated. Will continue to monitor. * Kati Thomas, PT - 02/04/2018 2:03 PM CHIEF STEWARD/STEWARDESS PHYSICAL THERAPY PROGRESS NOTE MOBILITY: Mobility Progressive [...] Alert;Cooperative;Follows Commands (flat affect ) Persons Present: Bingo Floater Pain: Patient complains of pain Pain Location: [...] retired living community. Patient's daughter and additional child care center assistant director come to house to assist with IADLs [...] Luis Martell MD - 02/04/2018 11:50 AM CHIEF STEWARD/STEWARDESS S/ Patient still with pain to left [...] with questions. Will need f/u with Dr. Thompson after discharge from rehab. Luis Martell MD [phone] * Minerva Mason APRN - 02/04/2018 9:09 AM CHIEF STEWARD/STEWARDESS Formatting of this note may be different [...] diabetes mellitus with other specified complication ([facility]) 02/01/2018 PVC (premature ventricular contraction) 02/01/2018 Hygroma [...] hrs for 14 days. F/U with Dr. Thompson Meningitis 11/04/2011 History of melanoma 11/04/2011 HTN (hypertension) 11/04/2011 Severe episode of recurrent major depressive disorder, without psychotic features ([facility]) 11/04/2011 SIRS (systemic inflammatory response syndrome) ([facility]) 11/03/2011 Respiratory failure ([facility]) 11/03/2011 Hypokalemia 07/15/2011 Pneumocephalus 07/11/2011 Post-occipital carlos [...] rehab Discharge planning - planning for [facility] when medically stable Prophylaxis: A)GI: PPI B) Lines: No C) Urinary Catheter: No D) Antibiotic Usage: Yes; Infection present or suspected: Otitis E) VTE: Pharmacological prophylaxis; SQ Heparin and Mechanical prophylaxis; Sequential compression device F) Restraints: Patient assessed for need for restraints. Please call [phone] with any questions. Minerva Mason APRN * Margarita Meraz, OT - 02/04/2018 9:00 AM CHIEF STEWARD/STEWARDESS OCCUPATIONAL THERAPY PROGRESS NOTE Patient Name: Fidel Henriquez [id number] Admitting Diagnosis: stroke like symptoms Hygroma Mobility [...] and Cooperative to Participate Persons Present: RN (clinical rehabilitation aide) ADL's Where Assessed: Chair Eating Assist: Independent [...] FRENCH Latham/Radha 1513 Date: 02/04/2018 * Angela Bryant, DARSHAN - 02/04/2018 8:32 AM CHIEF STEWARD/STEWARDESS RN to bedside to do initial assessment. Patient on continuous pulse oximetry. HR bouncing between 58 and 29. Patient states that "every once in a while I can feel it doing something weird". Vital signs stable. Team notified. Will continue to monitor. * Mitchel Rosen, RN - 02/03/2018 5:32 PM CHIEF STEWARD/STEWARDESS I have read and agree with the documentation of Sulema Holloway student nurse. * Margarita Meraz, OT - 02/03/2018 2:00 PM CHIEF STEWARD/STEWARDESS OCCUPATIONAL THERAPY PROGRESS NOTE Patient Name: Fidel Henriquez Room/Bed: DU7502/01 Admitting Diagnosis: stroke like symptoms Hygroma Mobility [...] Willing and Cooperative to Participate Persons Present: (Producer Arborist Manager) ADL's Where Assessed: Chair Eating Assist: Independent [...] mobility, Transfers Therapist: FRENCH Latham/Radha 1513 Date: 02/03/2018 * Kati Thomas, PT - 02/03/2018 9:58 AM CHIEF STEWARD/STEWARDESS PHYSICAL THERAPY PROGRESS NOTE SUBJECTIVE: Subjective Significant [...] prompting urgent cardiology consult. Negative for stroke 3/ Mental / Cognitive Status: Alert;Cooperative;Follows Commands (flat affect ) Persons Present: Bingo Floater (second PT) Pain: Patient complains of pain [...] retired living community. Patient's daughter and additional child care center assistant director come to house to assist with IADLs [...] sit to stand 3 additional times in [employer]. Used sit to stand lift to get to chair post session. BALANCE: Balance Sitting Balance: Static Sitting Balance;2 UE Support;Standby Assist Standing Balance: Static Standing Balance;Dynamic Standing Balance;2 UE support; Moderate Assist;x2 People GAIT: Gait Gait Distance: 5 feet (2 + 3 + 5) Gait: Assistance Level: Maximal Assist;x2 People (3rd person for safty considerations. ) Gait: Assistive Device: ([employer] ) Gait: Descriptors: Pace: Slow;Decreased knee extension in stance phase LLE; Decreased stance time LLE;Loss of balance Comments: Patient ambulated x 3 trials in the [employer] with maximal assist x 2. L knee [...] Days per Week Comments: Continue use of [place] to assist patient in taking steps and facilitating weight bearing. Up to chair with sit to stand lift and nursing staff. RECOMMENDATIONS: PT Discharge Recommendations PT Discharge Recommendations: Inpatient Setting;Recommend Physical Medicine and Rehabilitation Consult to address most appropriate level of rehabilitation placement Therapist: Kati Thomas, PT Date: 02/03/2018 * Jasmyn Mauro APRN - 02/03/2018 9:52 AM CHIEF STEWARD/STEWARDESS Formatting of this note may be different [...] diabetes mellitus with other specified complication ([facility]) 02/01/2018 PVC (premature ventricular contraction) 02/01/2018 Hygroma [...] hrs for 14 days. F/U with Dr. Thompson Meningitis 11/04/2011 History of melanoma 11/04/2011 HTN (hypertension) 11/04/2011 Severe episode of recurrent major depressive disorder, without psychotic features ([facility]) 11/04/2011 SIRS (systemic inflammatory response syndrome) ([facility]) 11/03/2011 Respiratory failure ([facility]) 11/03/2011 Hypokalemia 07/15/2011 Pneumocephalus 07/11/2011 Post-occipital carlos [...] assessed for need for restraints. Please call [phone] with any questions. Jasmyn Mauro, RECORDS COORDINATOR [phone] * Jose Torres MD - 02/02/2018 6:32 PM CHIEF STEWARD/STEWARDESS PM&R consult service attempted to see patient today, however we were unable to assess patient due to ongoing work up. Will plan to see patient tomorrow. Please contact if there are any issues. Jose Torres MD [phone] * Kelly Abdul MD - 02/02/2018 3:57 PM CHIEF STEWARD/STEWARDESS Ophthalmology Progress Note S: Patient was seen [...] us. Ginny Covington MD Ophthalmology PGY-2 Pager: [phone] [facility] [address] [place] [address] I personally examined and managed this patient [...] * Jess Hugo - 02/02/2018 3:19 PM CHIEF STEWARD/STEWARDESS SPEECH-LANGUAGE PATHOLOGY DAILY TREATMENT NOTE Patient seen [...] aspiration appreciated, withhold PO intake and notify PLATFORM MATERIAL HANDLING SUPERVISOR Medications PO as tolerated Excellent oral care PLATFORM MATERIAL HANDLING SUPERVISOR department will continue to follow to ensure [...] Continue treatment 1-3x/week Therapist: Jess Hugo M.A. CF-PLATFORM MATERIAL HANDLING SUPERVISOR Pager: [phone] Weekend Acute Pager: [phone] Date: 02/02/2018 * Caroline Tang - 02/02/2018 2:32 PM CHIEF STEWARD/STEWARDESS Formatting of this note may be different from the original. OCCUPATIONAL THERAPY PROGRESS NOTE Patient Name: Fidel Obregon Room/Bed: JF6124/01 Admitting Diagnosis: stroke like symptoms Hygroma Past [...] shoulders. PVC (premature ventricular contraction) 02/01/2018 Seizure (HCC) Type 2 diabetes mellitus with other specified complication ([facility]) 02/01/2018 Weakness of left side of body x3 years following seizures. Wound infection chronic Mobility Progressive Mobility Level: Stand Level of Assistance: Assist X2 Assistive Device: Hand Held (Bilateral knees blocked ) Time Tolerated: 11-30 minutes Activity Limited By: Weakness Subjective Pertinent Dx per Physician: Fidel Henriquez is a 67 y.o. male known to Dr. Thompson with bilateral otitis admitted by neurosurgery for [...] Cooperative to Participate Persons Present: Daughter;PT;RN (briefly); PLATFORM MATERIAL HANDLING SUPERVISOR (briefly) Home Living Type of Home: Apartment (independent living) Home Layout: One Level;Performs ADL'S on One Level Bathroom Shower / Tub: Walk-in Shower Home Equipment: Cane Prior Function Level Of [place]: Independent with ADLs and functional transfers;Needed assistance with homemaking Lives With: Alone Receives Help From: Family;Patient Executive Services Administrator Homemaking Assist: Total Assist Vocational: Retired Other [...] water mug at EOB-- R UE hook chestnut tanner) LE Dressing Assist: Moderate Assist LE Dressing [...] address most appropriate level of rehabilitation placement ([phone]). Equipment Recommendations: Shower Chair Recommend ongoing assistance for: In and out of house, Ambulation, Safety concerns, Dressing, Bathing, Toileting, Bed mobility, Transfers Therapist: Caroline Tang OTR/Radha 2101 Date: 02/02/2018 * Kati Thomas, PT - 02/02/2018 2:32 PM CHIEF STEWARD/STEWARDESS PHYSICAL THERAPY PROGRESS NOTE MOBILITY: Mobility Progressive [...] for stroke 3/3 Mental / Cognitive Status: Oriented;Cooperative;Follows Commands Persons [...] retired living community. Patient's daughter and additional child care center assistant director come to house to assist with IADLs [...] Kati Thomas, PT Date: 02/02/2018 * Siddharth Zhang MD - 02/02/2018 2:30 PM CHIEF STEWARD/STEWARDESS Fidel Henriquez originally presented with strokelike symptoms. [...] Elise Gutierrez RN - 02/02/2018 1:32 PM CHIEF STEWARD/STEWARDESS Another attempt was made to contact the primary RN to give a report. There was no answer. Pt transport back to room via transporter, in stable condition. * Elise Gutierrez RN - 02/02/2018 1:03 PM CHIEF STEWARD/STEWARDESS Attempted to reach primary RN twice and then asked for charge nurse, with no success. Therefore unable to give report/update following IR procedure. * Kati Thomas, PT - 02/02/2018 11:29 AM CHIEF STEWARD/STEWARDESS PHYSICAL THERAPY NOTE Attempted to see patient for Physical Therapy. Patient off the unit to IR for Lumbar puncture. Will follow up and treat patient as able and indicated. Therapist: Kati Thomas, PT Date: 02/02/2018 * Minerva Guevara, RN - 02/02/2018 10:24 AM CHIEF STEWARD/STEWARDESS Notified CAREER COUNSELOR pt pulse in the 40's and in the past sometimes down to 30's. No new orders at this time. Will continue to monitor. * Minerva Mason APRN - 02/02/2018 9:49 AM CHIEF STEWARD/STEWARDESS Formatting of this note may be different [...] hrs for 14 days. F/U with Dr. Thompson Meningitis 11/04/2011 History of melanoma 11/04/2011 HTN (hypertension) 11/04/2011 Severe episode of recurrent major depressive disorder, without psychotic features ([facility]) 11/04/2011 SIRS (systemic inflammatory response syndrome) ([facility]) 11/03/2011 Respiratory failure ([facility]) 11/03/2011 Hypokalemia 07/15/2011 Pneumocephalus 07/11/2011 Post-occipital carlos hole electrode placement Groin pain, right lower quadrant 05/21/2011 S/p flakita Weakness 04/10/2011 Partial epilepsy with impairment of consciousness, intractable ([facility]) 2009 S/p left temporal lobectomy in 08/2011. Patient has been seizure free since then. Chronic otitis media 07/31/2010 Hearing loss, mixed, bilateral 07/31/2010 Ataxia 02/22/2008 Morbid obesity ([facility]) 02/22/2008 АНДРЕЙ (obstructive sleep apnea) 02/22/2008 Neuropathy [...] assessed for need for restraints. Please call [phone] with any questions. Minerva Mason APRN * Andie Maki RN - 02/02/2018 9:32 AM CHIEF STEWARD/STEWARDESS Patient in isolation for possible meningitis. For viral or fungal meningitis, no isolation is required. For known or suspected bacterial meningitis, use droplet isolation until patient has been on effective antibiotic therapy for 24 hours. Please contact Infection Prevention at [phone] for questions. Thank you. * Telma Penaloza MD - 02/01/2018 10:02 PM CHIEF STEWARD/STEWARDESS Ophthalmology Progress Note - PGY-3 S: Patient [...] Department of Ophthalmology PGY-3 [facility] [address] [facility] [place] [address] Patient out of room, I did not see or examine patient on this encounter. * Mayra Patel RN - 02/01/2018 3:45 PM CHIEF STEWARD/STEWARDESS Patient arrived on unit via wheelchair accompanied by RN. Patient transferred to the bed with assistance. Assessment completed, refer to flowsheet for details. Orders released, reviewed, and implemented as appropriate. Oriented to surroundings, call light within reach. Plan of care reviewed. Will continue to monitor and assess. * Giacomo Pandey RN - 02/01/2018 3:22 PM CHIEF STEWARD/STEWARDESS Report given to RN on CA7 and she expressed no questions. Pts daughter notified of the patients transfer. * Giacomo Pandey RN - 02/01/2018 11:55 AM CHIEF STEWARD/STEWARDESS 1155- During assessment patient expressed a change [...] Elysia Cartagena MD - 02/01/2018 9:51 AM CHIEF STEWARD/STEWARDESS Formatting of this note may be different [...] mild AI -Pt reports history of "small" MO, unable to explain details, Denies history of cardiac cath or PCI. Uncertain if he has had a stress test in the past 2. PVCs -HONING JOB SETTER Atenolol 100mg daily 3. Hypertension -HONING JOB SETTER Atenolol 100mg daily, Norvasc 5mg, Lisinopril 20mg daily, Torsemide 20mg BID 4. DM2 -No HONING JOB SETTER statin 5. Obesity PLAN: -Serial troponins negative [...] Pt seen and d/w Dr. Mitzi Mckinley, RECORDS COORDINATOR ([id number]) I personally took the history, examined the [...] (02/01 900) Temp: 36.8 C (98.2 F) (02/01 0800) Pulse: 59 (02/01 900) Respirations: 14 PER MINUTE (02/01 900) SpO2: 92 % (02/01 900) O2 Delivery: None (Room Air) (02/01 900) SpO2 Pulse: 57 (02/01 900) Height: 185.4 cm (6' 1") (01/31 114) BP: (98-158)/(17-113) Temp: [36.4 C (97.6 F)-37.1 [...] Pericardial Effusion Mild RV Dilatation TAPSE=1.7cm Carrie Mckinley, OSCAR ([id number]) * Melisa Yoo MD - 02/01/2018 9:29 AM CHIEF STEWARD/STEWARDESS Formatting of this note may be different [...] hrs for 14 days. F/U with Dr. Thompson Meningitis 11/04/2011 History of melanoma 11/04/2011 HTN (hypertension) 11/04/2011 Severe episode of recurrent major depressive disorder, without psychotic features ([facility]) 11/04/2011 SIRS (systemic inflammatory response syndrome) ([facility]) 11/03/2011 Respiratory failure ([facility]) 11/03/2011 Hypokalemia 07/15/2011 Pneumocephalus 07/11/2011 Post-occipital carlos hole electrode placement Groin pain, right lower quadrant 05/21/2011 S/p flakita Weakness 04/10/2011 Partial epilepsy with impairment of consciousness, intractable ([facility]) 2009 S/p left temporal lobectomy in 08/2011. [...] assessed for need for restraints. Please call [phone] with any questions. Melisa Yoo MD * Giacomo Pandey RN - 02/01/2018 9:23 AM CHIEF STEWARD/STEWARDESS 0900- Patient's voice appears to be improved in tone and strength. Patient expresses that he feels his voice and breathing has improved overnight. This RN paged Speech to have them reevaluate the patients current diet recomendations. * Malathi Mckenna APRN - 02/01/2018 6:25 AM CHIEF STEWARD/STEWARDESS Formatting of this note may be different from the original. Neuro Critical Care Progress Note Fidel Obregonloni Admission Date: 01/30/2018 LOS: 1 day DNAR-Limited [...] hrs for 14 days. F/U with Dr. Thompson Meningitis 11/04/2011 History of melanoma 11/04/2011 HTN (hypertension) 11/04/2011 Severe episode of recurrent major depressive disorder, without psychotic features ([facility]) 11/04/2011 SIRS (systemic inflammatory response syndrome) ([facility]) 11/03/2011 Respiratory failure ([facility]) 11/03/2011 Hypokalemia 07/15/2011 Pneumocephalus 07/11/2011 Post-occipital carlos hole electrode placement Groin pain, right lower quadrant 05/21/2011 S/p flakita Weakness 04/10/2011 Partial epilepsy with impairment of consciousness, intractable ([facility]) 2009 S/p left temporal lobectomy in 08/2011. Patient has been seizure free since then. Chronic otitis media 07/31/2010 Hearing loss, mixed, bilateral 07/31/2010 Ataxia 02/22/2008 Morbid obesity ([facility]) 02/22/2008 АНДРЕЙ (obstructive sleep apnea) 02/22/2008 Neuropathy [...] left temporal lobectomy for uncontrolled seizures - HONING JOB SETTER Dilantin SR 100 mg - HONING JOB SETTER medication, sub-therapeutic level, but patient has been seizure free for many years and this is a stable level for him. - HONING JOB SETTER Neurontin 800 mg, Baclofen 10 mg TID Mastoiditis, Chronic otitis media: - ENT consulted - MRI head, MRI facial Left sided weakness, dysarthria - no indication for evaluation with CTA/CTP for acute stroke intervention given unclear symptom onset - obtain MRI W/WO - no stroke - ASA 325 mg started Sedation/Pain Management: Peripheral neuropathy, depression, anxiety - Assess for delirium daily - HONING JOB SETTER Zoloft 100 mg, Remeron - HONING JOB SETTER Baclofen 10 mg TID - Neurontin 800 mg Q 8 - [place] Cardiac:HTN, chest pain, PVC - EKG - multiple PVC - Cardiology consulted - Troponin negative - EKG negative - Bumex 1 mg BID, HONING JOB SETTER lisinopril 20 mg, atenolol 100 mg, Norvasc 5 mg Q day Respiratory:АНДРЕЙ - Stable GI: - Feeding: NPO - neurosurgery bowel regimen, ensure daily BM Heme: - assess for coagulopathy, maintain platelets above 100k, INR <1.5 ID: - Tmax afebrile - aim for normothermia, Temp <38.3 celsius, normothermia protocol if febrile Renal: Gout, BPH - Aim for normovolemia - HONING JOB SETTER Proscar, Allopurinol Endocrine: DM - Blood glucose goal 100-180mg/dl - HA1C pending- [place] SSI FEN: - Magnesium goal >2.0, i-Rupesh goal > 1.0, Potassium goal >4.0 mEq/L Prophylaxis Review: A)GI: PPI/H2Uuieero B) Lines: No C) Urinary Catheter: No D) Antibiotic Usage: No E) VTE: { F) Isolation: no G)Seizures: dilantin I) Restraints: Patient assessed for need for restraints. Disposition/Family: ICU care Primary service: NS Consults: NICU SUBJECTIVE Fidel Henriquez is a 67 y.o. male. Overnight Events: No new events noted. OBJECTIVE Vital Signs: Last Filed Vital Signs: 24 Hour Range BP: 119/69 (02/01 0400) Temp: 36.7 C (98 F) (02/01 040) Pulse: 56 (02/01 500) Respirations: 14 PER MINUTE (02/01 500) SpO2: 96 % (02/01 500) O2 Delivery: None (Room Air) (02/01 500) Height: 185.4 cm (73") (01/31 1146) Weight: 129.5 kg (285 lb 7.9 oz) (02/01 500) BP: (98-158)/(17-113) Temp: [36.4 C (97.6 F)-37.1 [...] Intake/Output Summary (Last 24 hours) at 02/01/18 0625 Last data filed at 01/31/18 2100 Gross per 24 hour Intake 400 ml Output 1335 ml Net -935 ml Physical Exam: Blood pressure 119/69, pulse 56, temperature 36.7 C (98 F), height 185.4 cm (73"), weight 129.5 kg (285 lb 7.9 oz), SpO2 96 %. [place] coma score: E: 4 - Opens eyes [...] Pertinent radiologic and diagnostic procedures reviewed. Malathi Mckenna, RECORDS COORDINATOR Date: 02/01/[phone] * Giacomo Pandey, DARSHAN - 01/31/2018 1:21 PM CHIEF STEWARD/STEWARDESS 1320- Dr Marilyn Dr and Dr Cox [...] Ange Manzo MD - 01/31/2018 12:11 PM CHIEF STEWARD/STEWARDESS Formatting of this note may be different [...] seizures - MRI without acute stroke - HONING JOB SETTER Dilantin SR 100 mg, - HONING JOB SETTER Neurontin 800 mg, Baclofen 10 mg TID - - ASA 325 mg started Sedation/Pain Management: Peripheral neuropathy, depression, anxiety - HONING JOB SETTER Zoloft 100 mg, Remeron - HONING JOB SETTER Baclofen 10 mg TID - Neurontin 800 mg Q 8 - [place] - Assess for delirium daily Cardiac: HTN, PVC - EKG - multiple PVC - Cardiology consulted - Troponin negative x2, one more pending - Bumex 1 mg BID, HONING JOB SETTER lisinopril 20 mg, atenolol 100 mg, Norvasc [...] Gout, BPH - Aim for normovolemia - HONING JOB SETTER Proscar, Allopurinol Endocrine: DM - Blood glucose goal 100-180mg/dl - HA1C pending - Low dose SSI started FEN: - Magnesium goal >2.0, i-Rupesh goal > 1.0, Potassium goal >4.0 mEq/L Prophylaxis Review: A)GI: PPI/S2Mwpktov B) Lines: No C) Urinary Catheter: No [...] (01/31 1000) Height: 185.4 cm (73") (01/31 114) Weight: 130.2 kg (287 lb 0.6 oz) (01/31 114) BP: (100-143)/(45-89) Temp: [36.5 C (97.7 F)-36.9 [...] 0255) POC Glucose (Download): (!) 108 (01/31/18 0843) Radiology and Other Diagnostic Procedures Review: Pertinent radiology reviewed. Vicki Manzo MD 01/31/2018 Pager: [phone] * Giacomo Pandey, RN - 01/31/2018 11:57 AM CHIEF STEWARD/STEWARDESS 1200--Notified JESSY Mckenna that patient expressed feeling SOB progressively [...] ensure that it is functioning appropriately. * Ernestine Saavedra, PT - 01/31/2018 10:41 AM CHIEF STEWARD/STEWARDESS PHYSICAL THERAPY ASSESSMENT MOBILITY: Progressive Mobility Level: [...] for stroke 3/3 Mental / Cognitive Status: Oriented;Cooperative;Follows Commands Persons [...] retired living community. Patient's daughter and additional child care center assistant director come to house to assist with IADLs [...] Alyce Garrett, OT - 01/31/2018 10:41 AM CHIEF STEWARD/STEWARDESS Formatting of this note may be different from the original. OCCUPATIONAL THERAPY ASSESSMENT NOTE Patient Name: Fidel Henriquez Room/Bed: [place] [address] Admitting Diagnosis: stroke like symptoms Hygroma Past [...] a 67 y.o. male known to Dr. Thompson with bilateral otitis admitted by neurosurgery for [...] Home Equipment: Cane Prior Function Level Of [place]: Independent with ADLs and functional transfers;Needed assistance with homemaking Lives With: Alone Receives Help From: Family;Patient Executive Services Administrator Homemaking Assist: Total Assist Vocational: Retired Other [...] address most appropriate level of rehabilitation placement ([phone]). Equipment Recommendations: Shower Chair Recommend ongoing assistance for: In and out of house, Transfers, Bed mobility, Ambulation, Stairs, Meal preparation, Safety concerns, Dressing, Grooming, Bathing, Toileting, Homemaking Therapist: Alyce Garrett, OTR/L [id number] Date: 01/31/2018 * Giacomo Pandey RN - 01/31/2018 10:06 AM CHIEF STEWARD/STEWARDESS 1000-Patient taken to CTA by Suzy SEXTON and one IRON POURER. * Jess Hugo - 01/31/2018 9:45 AM CHIEF STEWARD/STEWARDESS SPEECH-LANGUAGE PATHOLOGY CLINICAL SWALLOW ASSESSMENT EVALUATION SUMMARY [...] of aspiration withhold PO intake and notify PLATFORM MATERIAL HANDLING SUPERVISOR Medications 1 at a time with purees Excellent oral care to reduce risk of aspiration of bacteria from the oral cavity Pt may benefit from further evaluation of vocal quality as pt notes worsening this date, will defer to primary team/ENT PLATFORM MATERIAL HANDLING SUPERVISOR department will continue to follow for dysphagia [...] (Comment). (3-5x) Prognosis: Fair, Good NOMS Dysphagia [id number] Dysphagia -Swallow safe but usually requires mod [...] ongoing evaluation of dysphagia. Therapist:Jess Hugo M.A. CF-PLATFORM MATERIAL HANDLING SUPERVISOR Pager: [phone] Weekend Acute Pager: [phone] Date:01/31/2018 * Immanuel Guillory, RT - 01/31/2018 5:14 AM CHIEF STEWARD/STEWARDESS Formatting of this note may be different [...] Date: 01/31/2018 [place] AC=Airway clearance AM=Aerosolized medication BA=[place] aerosol DB&C=Deep breathe & cough FEV1=Forced expiratory volume in first second) IC=Inspiratory capacity LE=Lung expansion MDI=Metered dose inhaler Neb=Nebulizer O2=Oxygen Oxim=Oximetry PEFR=Peak expiratory flow rate HRIS ANALYST=Rapid Response Team * Francois Hart RN - 01/31/2018 3:54 AM CHIEF STEWARD/STEWARDESS Pt transported to MRI via bed on monitor with this RN and one NA at 0330 to 0500....VSS. Will continue to monitor. in this encounter H&P Notes * Ehsan Chirinos APRN-NP - 02/02/2018 11:13 AM CHIEF STEWARD/STEWARDESS Formatting of this note may be different [...] (97.5 F) (02/02 1054) Pulse: 55 (02/02 1054) Respirations: 17 PER MINUTE (02/02 1054) SpO2: 97 % (02/02 1054) O2 Delivery: CPAP/BiPAP (Pt Owned) (02/02 1054) [...] previous H&P performed on 02/01/18. Ehsan Chirinos APRN-CAREER COUNSELOR Pager [phone] * Petar Pradhan MD - 01/31/2018 12:55 AM CHIEF STEWARD/STEWARDESS Formatting of this note may be different [...] pt was taken to OR by Dr Thompson for left canal wall down tympanoplasty with [...] chain reconstruction and tube placement by Dr. Thompson on 02/27/13. Currently, the patient is followed by the ENT service for bilateral chronic otitis media and a left cavity. His most recent visit was in May [address] Thompson. He underwent his most recent cranioplasty on [...] until this concern was noticed by his supervisor coil winding on 01/30 who sent him directly to [...] Vital Signs: 24 Hour Range BP: 120/73 (01/31) Temp: 36.9 C (98.4 F) (01/31) Pulse: [...] neuritis. 5. No evidence of acute infarct." Petar Pradhan MD in this encounter Consult Notes * Monster Curry MD - 02/04/2018 5:28 PM CHIEF STEWARD/STEWARDESS Associated Order(s): CONSULT NEUROLOGY PHYSICIAN Formatting of [...] an outpatient. Neurology Private Consult Service: Pager: [phone] . Pages will be returned by this service attending from the hours of 2PM-10PM Mon- Fri and 1200-1000PM Sat and Sun. Urgent questions can otherwise be directed to the Neurology teaching service at pager [phone]. History of Present Illness: Fidel Henriquez is [...] unspecified site 1979 Arthritis Attempted suicide ([facility]) 2004 Overdose CAD (coronary artery disease) Chronic mastoiditis of left side Chronic otitis media ED (erectile dysfunction) Enlarged prostate Epilepsy ([facility]) Headache(784.0) Headaches Hypertension Infection bone flap Morbid obesity ([facility]) Neuropathy, lower extremity Bilateral Non-melanoma skin cancer АНДРЕЙ (obstructive sleep apnea) uses C-PAP Pruritus - disorder bilateral arms, shoulders. PVC (premature ventricular contraction) 02/01/2018 Seizure ([facility]) Type 2 diabetes mellitus with other specified complication ([facility]) 02/01/2018 Weakness of left side of body [...] Otis Escobedo MD - 02/04/2018 2:12 PM CHIEF STEWARD/STEWARDESS Associated Order(s): CONSULT ADULT PSYCHIATRY PHYSICIAN Formatting of this note may be different from the original. PSYCHIATRY CONSULT NOTE Room/Bed: [id number] Admission Date: 01/30/2018 LOS: 4 days Consult type: Opinion with orders Reason for Consult: Depression; SW concerned that pt might have psychosomatic symtpoms, requesting psych to be consulted Assessment: 1. 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 Excoriation (Skin-Picking) disorder 3. Bereavement 4. Dependent personality traits Recommendations: No psychotropic medication changes indicated today. HONING JOB SETTER Remeron recently increased 01/23/18. Will defer to [...] between 8am and 3pm on weekends at [phone]. Otherwise, page the marketing services vice president masonry instructor. Chief Concern: "I'd like some answers" History [...] Drugs: Denies Psychosocial/Substance History: - Born in [place], [place]. Daughter says he was abandoned at a bar by his mother when he was a child, then put into foster care. Grew up in an orphanage before being adopted. Currently lives alone in [place], [place]. 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 PVC (premature ventricular contraction) 02/01/2018 Seizure ([facility]) Type 2 diabetes mellitus with other specified complication ([facility]) 02/01/2018 Weakness of left side of body [...] Vital Signs: 24 hour Range BP: 118/66 (02/04 1012) Temp: 36.8 C (98.2 F) (02/05 1012) Pulse: 57 (02/042) Respirations: 18 PER MINUTE (02/05 1012) SpO2: [...] concentration: appropriate for conversation Cognition: average Language: lao, fluent Fund of knowledge and vocabulary: average [...] Kristi Diaz MD - 02/04/2018 8:38 PM CHIEF STEWARD/STEWARDESS Formatting of this note may be different [...] and between 8am and 3pm on weekends [phone]. Otherwise, page the marketing services vice president masonry instructor. Staff name: Kristi Diaz MD Date: 02/04/2018 * France Crawford APRN - 02/04/2018 1:20 PM CHIEF STEWARD/STEWARDESS Associated Order(s): CONSULT CARDIOLOGY PHYSICIAN Formatting of [...] mild AI -Pt reports history of "small" MO, unable to explain details, Denies history of cardiac cath or PCI. Uncertain if he has had a stress test in the past -02/04 EKG showing NSR w/ ventricular bigeminy 2. PVCs -HONING JOB SETTER Atenolol 100mg daily 3. Hypertension -HONING JOB SETTER Atenolol 100mg daily, Norvasc 5mg, Lisinopril 20mg daily, Torsemide 20mg BID 4. DM2 -No HONING JOB SETTER statin 5. Obesity 6. Bradycardia > not [...] atorvastatin, goal LDL < 70 France Crawford, RECORDS COORDINATOR [id number] Reason for consult: Chest pain History of [...] unspecified site 1979 Arthritis Attempted suicide ([facility]) 2004 Overdose CAD (coronary artery disease) Chronic mastoiditis of left side Chronic otitis media ED (erectile dysfunction) Enlarged prostate Epilepsy ([facility]) Headache(784.0) Headaches Hypertension Infection bone flap Morbid obesity ([facility]) Neuropathy, lower extremity Bilateral Non-melanoma skin cancer АНДРЕЙ (obstructive sleep apnea) uses C-PAP Pruritus - disorder bilateral arms, shoulders. PVC (premature ventricular contraction) 02/01/2018 Seizure ([facility]) Type 2 diabetes mellitus with other specified complication ([facility]) 02/01/2018 Weakness of left side of body [...] Gerry Mccoy MD - 02/04/2018 3:57 PM CHIEF STEWARD/STEWARDESS Mr. Henriquez is a very pleasant 67-year-old [...] Adrián Lorenzo MD - 02/03/2018 10:19 AM CHIEF STEWARD/STEWARDESS Associated Order(s): CONSULT REHABILITATION MEDICINE PHYSICIAN Formatting of this note may be different from the original. Physical Medicine & Rehabilitation Consult Note Date of Service: 02/03/2018 Fidel Henriquez is a 67 y.o. male. : 1950 Primary Insurance: MEDICARE Secondary Insurance: [employer] Tertiary Insurance: Financial Class: Medicare Date of Admission: 01/30/2018 Referring Physician: Siddharth Zhang MD Reason for Consult: evaluate for Post-Acute Rehab/Placement Precautions: Fall Weight bearing Precautions: Active Problems Baastrup's disease Epilepsy s/o lobectomy Chronic mastoiditis DM2 Obesity HTN Assessment & Plan Fidel Henriquez is a 67 y.o. male admitted to [facility] on 01/30/2018 with the following issues: [...] therapy a day: Fair Other Recommendations: Cognition: PLATFORM MATERIAL HANDLING SUPERVISOR to evaluate and manage cognitive deficits. Dysphagia: PLATFORM MATERIAL HANDLING SUPERVISOR following, patient most recently advanced to full [...] hours while supine in bed, pressure relief [id number] in seated position, PRAFOs for pressure relief and to prevent contractures Patient was seen and discussed with Attending Physician, Dr. Lorenzo. Jose Torres MD Rehab Consult Pager: [phone] Rehabilitation Medicine Attending Physician Attestation: Agree with [...] (and may benefit from cognitive eval by PLATFORM MATERIAL HANDLING SUPERVISOR at this/next level of care) for acute inpatient rehabilitation. Recommend continued therapies, while the primary team manages the patient. Discussed case with the patient and his friend. Also discussed with our administrative project coordinator and primary SWCM, and the patient's initial preference is for [facility]. Will continue to follow. Thank you [...] cardiology consult. Negative for stroke 01/31. LP 02/01- non conclusive. Past Medical History Past Medical History: Diagnosis Date Acute myocardial infarction, unspecified site 1979 Arthritis Attempted suicide ([facility]) 2004 Overdose CAD (coronary artery disease) Chronic mastoiditis of left side Chronic otitis media ED (erectile dysfunction) Enlarged prostate Epilepsy ([facility]) Headache(784.0) Headaches Hypertension Infection bone flap Morbid obesity ([facility]) Neuropathy, lower extremity Bilateral Non-melanoma skin cancer АНДРЕЙ (obstructive sleep apnea) uses C-PAP Pruritus - disorder bilateral arms, shoulders. PVC (premature ventricular contraction) 02/01/2018 Seizure ([facility]) Type 2 diabetes mellitus with other specified complication ([facility]) 02/01/2018 Weakness of left side of body [...] History Social History Marital status: Spouse name: Pat Number of children: N/A Years of education: [...] use of SPC Work/Personal Responsibilities/Hobbies: Lives in skilled nursing independent apartments- has assistence with IADL's. Home Environment: Home Situation: Lives Alone (02/03/2018 12:00 PM) Patient Owned Equipment: Single Point Cane (02/03/2018 12:00 PM) Type of Home: Apartment (independent living) (02/03/2018 12:00 PM) Entry Stairs: No Stairs (02/03/2018 12:00 PM) In-Home Stairs: No Stairs (02/03/2018 12:00 PM) Comments: Per patient's daughter, patient lives in a retired living community. Patient's daughter and additional child care center assistant director come to house to assist with IADLs [...] safty considerations. ) Gait: Assistive Device: ( [place] Tram ) Bed Mobility/Transfers Bed Mobility: Supine [...] sit to stand 3 additional times in [place] Tram. Used sit to stand lift to [...] knee blocks, patient was safe from falling. PLATFORM MATERIAL HANDLING SUPERVISOR COGNITIVE EVALUATION SUMMARY PRAGMATICS: BEHAVIOR: AUDITORY COMPREHENSION: [...] Jose Hickman MD - 01/31/2018 6:22 PM CHIEF STEWARD/STEWARDESS Associated Order(s): CONSULT OPHTHALMOLOGY PHYSICIAN Formatting of [...] the left eye. He says that his supervisor coil winding was concerned about some "detachment" and or [...] History Social History Marital status: Spouse name: [facility] Number of children: N/A Years of [...] mild pain w motility testing OS Subjective shredding machine tender & white light desaturation OS Adnexa: WNL [...] MD Department of Ophthalmology PGY-3 [facility] [address] [place] [address] Associated attestation - Carolina Dorado MD - 02/03/2018 1:05 PM CHIEF STEWARD/STEWARDESS Formatting of this note may be different from the original. ATTESTATION I did not personally examine the patient, but I did discuss the case with the resident, and agree with the assessment and plan as noted above. Please see below for any addendums. Staff name: Carolina Dorado MD Date: 02/03/2018 * Luis Martell MD - 01/31/2018 4:03 AM CHIEF STEWARD/STEWARDESS Associated Order(s): CONSULT OTOLARYNGOLOGY (ENT) PHYSICIAN Formatting of this note may be different from the original. General Consult Note Admission Date: 01/30/2018 LOS: 0 days Reason for Consult: mastoiditis Consult type: Opinion Assessment/Plan 67 y/o male with multiple medical problems known to Dr. Thompson for bilateral chronic otitis and left mastoid [...] a 67 y.o. male known to Dr. Thompson with bilateral otitis admitted by neurosurgery for [...] (98.4 F) (01/31 0000) Pulse: 57 (01/31 0345) Respirations: 18 PER MINUTE (01/31 0300) SpO2: 92 % (01/31 0345) O2 Delivery: None (Room Air) (01/31 0345) SpO2 Pulse: 57 (01/31 0345) Height: 185.4 cm (73") (01/30 2300) BP: [...] Elysia Cartagena MD - 01/31/2018 2:01 AM CHIEF STEWARD/STEWARDESS Associated Order(s): CONSULT CARDIOLOGY PHYSICIAN Formatting of [...] later. EKG not concerning for ischemia or MO. It is unclear to me what his [...] Will staff with Dr. Mitzi Woo MD [id number] I discussed the above with the fellow. [...] 0100) O2 Delivery: None (Room Air) (01/31 0100) SpO2 Pulse: 56 (01/31 0100) Height: 185.4 cm (6' 1") (01/30 2300) [...] Marvin Aparicio APRN - 01/31/2018 1:37 AM CHIEF STEWARD/STEWARDESS Associated Order(s): CONSULT NEURO CRITICAL CARE PHYSICIAN Formatting of this note may be different from the original. Neuro Critical Care History and Physical Fidel Henriquez Admission Date: 01/30/2018 LOS: 0 days Full [...] hrs for 14 days. F/U with Dr. Thompson Meningitis 11/04/2011 History of melanoma 11/04/2011 HTN (hypertension) 11/04/2011 Severe episode of recurrent major depressive disorder, without psychotic features ([facility]) 11/04/2011 SIRS (systemic inflammatory response syndrome) ([facility]) 11/03/2011 Respiratory failure ([facility]) 11/03/2011 Hypokalemia 07/15/2011 Pneumocephalus 07/11/2011 Post-occipital carlos hole electrode placement Groin pain, right lower quadrant 05/21/2011 S/p flakita Weakness 04/10/2011 Partial epilepsy with impairment of consciousness, intractable ([facility]) 2009 S/p left temporal lobectomy in 08/2011. [...] left temporal lobectomy for uncontrolled seizures - HONING JOB SETTER Dilantin SR 100 mg - Will check Dilantin level this am - HONING JOB SETTER Neurontin 800 mg, Baclofen 10 mg TID [...] anxiety - Assess for delirium daily - HONING JOB SETTER Zoloft 100 mg, Remeron - HONING JOB SETTER Baclofen 10 mg TID - Neurontin 800 mg Q 8 - [place] Cardiac:HTN, chest pain, PVC - EKG - multiple PVC - Cardiology consulted - Troponin negative on addmision - Trend troponin q 6 hours tonight. Repeat EKG if chest pain worsens. Echo ordered for tomorrow. Can try sublingual nitroglycerin to see if it helps - Bumex 1 mg BID, HONING JOB SETTER lisinopril 20 mg, atenolol 100 mg, Norvasc 5 mg Q day Respiratory:АНДРЕЙ - Stable GI: - Feeding: NPO - neurosurgery bowel regimen, ensure daily BM Heme: - assess for coagulopathy, maintain platelets above 100k, INR <1.5 ID: - Tmax 36.9 - WBC: 11.9 - aim for normothermia, Temp <38.3 celsius, normothermia protocol if febrile Renal: Gout, BPH - Aim for normovolemia - HONING JOB SETTER Proscar, Allopurinol Endocrine: DM - Blood glucose goal 100-180mg/dl - HA1C pending- Low dose SSI started FEN: - Magnesium goal >2.0, i-Rupesh goal > 1.0, Potassium goal >4.0 mEq/L Prophylaxis Review: A)GI: PPI/[id number] B) Lines: No C) Urinary Catheter: No [...] output data in the 24 hours ending 01/31/18 0137 Physical Exam: Blood pressure 127/68, pulse 57, temperature 36.9 C (98.4 F), height 185.4 cm (73"), weight 129.7 kg (285 lb 15 oz), SpO2 95 %. Chalfont coma score: E: 4 - Opens eyes [...] radiologic and diagnostic procedures reviewed. Marvin Aparicio, RECORDS COORDINATOR Date: 01/31/[phone] I spent 60 minutes managing the care [...] Licha Carrizales RN - 02/06/2018 11:50 AM CHIEF STEWARD/STEWARDESS Problem: Neurological Status, Impaired/Altered Goal: Progress toward maximizing functional outcomes Outcome: Goal Achieved Date Met: 02/06/18 Pt is discharged to [facility]. Report given to DARSHAN Chaves. No scripts [...] states that he lost his cell phone snow blower in the ICU. Provided patient relations phone number to him and will notify my charge nurse. Goal: Cognitive status restored to baseline Outcome: Goal Achieved Date Met: 02/06/18 Pt is discharged to [facility]. Report given to DARSHAN Chaves. No scripts [...] states that he lost his cell phone snow blower in the ICU. Provided patient relations phone number to him and will notify my charge nurse. Problem: Respiratory Impairment (Non-Ventilated Patient) Goal: Effective gas exchange Outcome: Goal Achieved Date Met: 02/06/18 Pt is discharged to [facility]. Report given to DARSHAN Chaves. No scripts [...] states that he lost his cell phone snow blower in the ICU. Provided patient relations phone number to him and will notify my charge nurse. Problem: Self-Care Deficit Goal: Maximize ADL functioning Outcome: Goal Achieved Date Met: 02/06/18 Pt is discharged to [facility]. Report given to DARSHAN Chaves. No scripts [...] states that he lost his cell phone snow blower in the ICU. Provided patient relations phone number to him and will notify my charge nurse. Problem: Mobility/Activity Intolerance Goal: Maximize functional ADL's and mobility outcomes Outcome: Goal Achieved Date Met: 02/06/18 Pt is discharged to [facility]. Report given to DARSHAN Chaves. No scripts [...] states that he lost his cell phone snow blower in the ICU. Provided patient relations phone number to him and will notify my charge nurse. Problem: Pain Goal: Management of pain Outcome: Goal Achieved Date Met: 02/06/18 Pt is discharged to [facility]. Report given to DARSHAN Chaves. No [...] states that he lost his cell phone snow blower in the ICU. Provided patient relations phone number to him and will notify my charge nurse. Goal: Knowledge of pain management Outcome: Goal Achieved Date Met: 02/06/18 Pt is discharged to [facility]. Report given to DARSHAN Chaves. No [...] states that he lost his cell phone snow blower in the ICU. Provided patient relations phone number to him and will notify my charge nurse. Problem: Infection, Risk of Goal: Absence of infection Outcome: Goal Achieved Date Met: 02/06/18 Pt is discharged to [facility]. Report given to DARSHAN Chaves. No [...] states that he lost his cell phone snow blower in the ICU. Provided patient relations phone number to him and will notify my charge nurse. Goal: Knowledge of Infection Control Procedures Outcome: Goal Achieved Date Met: 02/06/18 Pt is discharged to [facility]. Report given to DARSHAN Chaves. No scripts [...] states that he lost his cell phone snow blower in the ICU. Provided patient relations phone number to him and will notify my charge nurse. Problem: Falls, High Risk of Goal: Absence of falls-Adult Patient Outcome: Goal Achieved Date Met: 02/06/18 Pt is discharged to [facility]. Report given to DARSHAN Chaves. No scripts [...] states that he lost his cell phone snow blower in the ICU. Provided patient relations phone number to him and will notify my charge nurse. Goal: Absence of Falls-Pediatric patient Outcome: Goal Achieved Date Met: 02/06/18 Pt is discharged to [facility]. Report given to DARSHAN Chaves. No scripts [...] states that he lost his cell phone snow blower in the ICU. Provided patient relations phone number to him and will notify my charge nurse. * Case Mgmt DC Larry - Tika Pavon - 02/06/2018 10:24 AM CHIEF STEWARD/STEWARDESS Request to Arrange Patient Transportation Received request from Alecia Perez [facility] to arrange transportation for pt to [facility] [address] [place] [address]. Date and time: 02/06 @ 1115 Transport company: [employer] [phone] Type of transport: Wheelchair van Cost of transport: $371 to be paid by [facility] per [facility] Tika Pavon Steward Dishwasher For further assistance please contact [facility] *[phone] * Case Mgmt DC Plan - Alecia Perez - 02/06/2018 10:04 AM CHIEF STEWARD/STEWARDESS Formatting of this note may be different from the original. Case Management Progress Note NAME:Fidel Henriquez :1950 AGE: 67 y.o. ADMISSION DATE: 01/30/2018 DAYS ADMITTED: LOS: 6 days Todays Date: 02/06/2018 Plan STEFANI met with the neurosurgery team regarding POC and d/c planning. Pt is medically ready to transition to [facility] today, with cardiology and ENT follow up appointments scheduled. STEFANI called and left a vm with pt's daughter. Transport is set up ([employer] w/c van: [phone]) for clam picker at 11:15am. Interventions ? Support Pt has in home support through [employer], which includes his daughter Geneva 15 hours/ week. ? Info or Referral ? Discharge Planning Pt has been approved and planning to go to [facility]. STEFANI attempting to get transportation arranged for pt to go today. Pt will require w/c transport, and unfortunately does not have a w/c here (therefore, he cannot use Medicaid transport). W/C clam picker scheduled for 11:15 to [place]. STEFANI notified provider, pt's daughter and bedside RN [facility] [address] iw; [phone] ? Medication Needs ? Financial ? Legal ? Other Disposition ? Expected Discharge Date Expected Discharge Date: 02/06/18 ? Transportation Does the patient need discharge transport arranged?: No Transportation Name, Phone and Availability #1: Pt's daughter, Geneva available to transport pt home, once he is ready [phone] Does the patient use Medicaid Transportation?: No ? Next Level of Care (Acute Psych discharges only) ? Discharge Disposition Durable Medical Equipment No service has been selected for the patient. Destination No service has been selected for the patient. Home Care No service has been selected for the patient. Dialysis/Infusion No service has been selected for the patient. Alecia Perez, [facility] *[phone] * Response Teams - Olivia Brock RN - 02/04/2018 10:28 PM CHIEF STEWARD/STEWARDESS Rapid Response Team Progress Note Date: 02/04/2018 Time: 10:28 PM Patient: Fidel Henriquez Attending: Siddharth Zhang MD Service: Surgery-Neuro Admission Date: 01/30/2018 LOS: 4 days A Code/Rapid Response Timeline Event Report has been created for this patient on 02/04/18 at 2145. HRIS ANALYST called for chest pain. ECG completed, labs [...] - Alecia Perez - 02/04/2018 1:31 PM CHIEF STEWARD/STEWARDESS Formatting of this note may be different from the original. Case Management Progress Note NAME:Fidel Henriquez :1950 AGE: 67 y.o. ADMISSION DATE: 01/30/2018 DAYS ADMITTED: LOS: 4 days Todays Date: 02/04/2018 Plan SW met with the neurosurgery team regarding POC and d/c planning. Mr. Henriquez is stating that he feels worse, but the medical work up has been negative thus far. STEFANI concerned that pt might have psychosomatic symtpoms, requesting psych to be consulted. Pt has been accepted at [facility] for IPR, once he is medically ready to d/c. Interventions ? Support ? Info or Referral ? Discharge Planning Pt has been medically approved to go to [facility] in [place], pending medical stability for d/c. [facility] [address] [place] [address] da; [phone] ? Medication Needs ? Financial ? Legal ? Other Disposition ? Expected Discharge Date Expected Discharge Date: 02/05/18 ? Transportation Does the patient need discharge transport arranged?: No Transportation Name, Phone and Availability #1: Pt's daughter, Geneva available to transport pt home, once he is ready [phone] Does the patient use Medicaid Transportation?: No ? Next Level of Care (Acute Psych discharges only) ? Discharge Disposition Durable Medical Equipment No service has been selected for the patient. [facility] Dest[facility] No service has been selected for the patient. [facility] Home Care No service has been selected for the patient. [facility] Dialysis/Infusion No service has been selected for the patient. Alecia Perez LMSW * Case Mgmt DC Plan - Alecia Perez - 02/03/2018 11:35 AM CHIEF STEWARD/STEWARDESS Formatting of this note may be different from the original. Case Management Progress Note NAME:Fidel Henriquez :1950 AGE: 67 y.o. ADMISSION DATE: 01/30/2018 DAYS ADMITTED: LOS: 3 days Todays Date: 02/03/2018 Plan SW met with neurosurgery regarding POC and d/c planning. Mr. Henriqeuz's cultures are still pending; anticipate for possible d/c date to [facility] setting. Interventions ? Support Pt lives in a skilled nursing community home/apartment. He works 9-2 at the [employer] through [employer]. He also has 32 hours of in home support; which includes his daughter, Geneva. She is able to transport him, when he is medically ready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 [place], [place] [id number] * BNP (B-TYPE NATRIURETIC PEPTI) (01/30/2018 11:42 PM) Component Value Ref Range B Type Natriuretic 161.0 (H) 0 - 100 PG/ML Peptide Specimen Performing Laboratory Blood MAIN LAB [address] [place], [place] [id number] * LIPID PROFILE (01/30/2018 11:42 PM) Component [...] mg/dL. Specimen Performing Laboratory Blood MAIN LAB [address] [place], [place] [id number] * TROPONIN-I (01/30/2018 11:42 PM) Component Value Ref Range Troponin-I 0.01 0.0 - 0.05 NG/ML Specimen Performing Laboratory Blood MAIN LAB [address] [place], [place] [id number] * PHOSPHORUS (01/30/2018 11:42 PM) Component Value Ref Range Phosphorus 3.3 2.0 - 4.0 MG/DL Specimen Performing Laboratory Blood MAIN LAB [address] [place], [place] [id number] * MAGNESIUM (01/30/2018 11:42 PM) Component Value Ref Range Magnesium 2.3 1.6 - 2.6 mg/dL Specimen Performing Laboratory Blood MAIN LAB [address] [place], [place] [id number] * PROTIME INR (PT) (01/30/2018 11:42 PM) Component Value Ref Range INR 1.1 0.8 - 1.2 Specimen Performing Laboratory Blood MAIN LAB [address] [place], [place] [id number] * PTT (APTT) (01/30/2018 11:42 PM) Component Value Ref Range APTT 28.9 21.0 - 39.0 SEC Specimen Performing Laboratory Blood MAIN LAB [address] [place], [place] [id number] * BASIC METABOLIC PANEL (01/30/2018 11:42 PM) [...] Specimen Performing Laboratory Blood MAIN LAB [address] [place] [address] * CBC AND DIFF (01/30/2018 11:42 PM) [...] Specimen Performing Laboratory Blood MAIN LAB [address] [place] [address] * CT HEAD EXTERNAL IMAGING (01/30/2018 12:30 [...] sleep apnea) Obstructive sleep apnea (adult) (pediatric) Otitis externa of left ear Infective otitis externa, unspecified Admitting Diagnoses Diagnosis stroke like symptoms Hygroma Administered Medications Medication Order MAR Action Action Date Dose Rate Site acetaminophen (TYLENOL) tablet 650 mg Given 02/04/2018 650 mg 650 mg, Oral, EVERY 4 HOURS PRN, 23:06 CHIEF STEWARD/STEWARDESS Starting 01/31/18 at 0050, Until 02/06/18 at 1519, Temp > ..., 38.3 C, TOTAL ACETAMINOPHEN DOSE NOT TO EXCEED 4GM DAILY allopurinol (ZYLOPRIM) tablet 100 mg Given 02/04/2018 100 mg 100 mg, Oral, DAILY, First dose on Sat 09:00 CHIEF STEWARD/STEWARDESS 01/31/18 at 0900, Until Discontinued Given 02/05/2018 100 mg 10:24 CHIEF STEWARD/STEWARDESS Given 02/06/2018 100 mg 08:59 CHIEF STEWARD/STEWARDESS amLODIPine (NORVASC) tablet 5 mg Given 02/04/2018 5 mg 5 mg, Oral, DAILY, First dose on Sat 09:00 CHIEF STEWARD/STEWARDESS 01/31/18 at 0900, Until Discontinued, NURSING: Please educate patient and document: Do not give with grapefruit juice. Given 02/05/2018 5 mg 10:22 CHIEF STEWARD/STEWARDESS Given 02/06/2018 5 mg 08:59 CHIEF STEWARD/STEWARDESS aspirin EC tablet 81 mg Given 02/06/2018 81 mg 81 mg, Oral, DAILY, First dose on Fri 08:59 CHIEF STEWARD/STEWARDESS 02/06/18 at 0900, Until Discontinued aspirin tablet 325 mg Given 02/03/2018 325 mg 325 mg, Oral, DAILY, First dose on Sat 09:45 CHIEF STEWARD/STEWARDESS 01/31/18 at 0100, Until Discontinued Given 02/04/2018 325 mg 08:59 CHIEF STEWARD/STEWARDESS Given 02/05/2018 325 mg 10:23 CHIEF STEWARD/STEWARDESS atenolol (TENORMIN) tablet 100 mg Given 02/04/2018 100 mg 100 mg, Oral, DAILY, First dose on Sat 08:59 CHIEF STEWARD/STEWARDESS 01/31/18 at 0900, Until Discontinued, Hold for heart rate < 60 bpm or systolic BP < 90 Given 02/05/2018 100 mg 10:22 CHIEF STEWARD/STEWARDESS Given 02/06/2018 100 mg 08:57 CHIEF STEWARD/STEWARDESS atorvastatin (LIPITOR) tablet 20 mg Given 02/03/2018 20 mg 20 mg, Oral, AT BEDTIME DAILY, First 21:57 CHIEF STEWARD/STEWARDESS dose on 02/01/18 at 2100, Until Discontinued Given 02/04/2018 20 mg 20:26 CHIEF STEWARD/STEWARDESS Given 02/05/2018 20 mg 22:32 CHIEF STEWARD/STEWARDESS baclofen (LIORESAL) tablet 10 mg Given 02/05/2018 10 mg 10 mg, Oral, THREE TIMES DAILY, First 14:34 CHIEF STEWARD/STEWARDESS dose on 01/31/18 at 0115, Until Discontinued Given 02/05/2018 10 mg 22:31 CHIEF STEWARD/STEWARDESS Given 02/06/2018 10 mg 08:59 CHIEF STEWARD/STEWARDESS bisacodyl (DULCOLAX) rectal suppository Given 02/02/2018 10 mg 10 mg 14:33 CHIEF STEWARD/STEWARDESS 10 mg, Rectal, DAILY, First dose on 02/02/18 at 0900, Until Discontinued, May hold if BM within 24 hours of dose. Given 02/03/2018 10 mg 21:57 CHIEF STEWARD/STEWARDESS bumetanide (BUMEX) tablet 1 mg Given 02/05/2018 1 mg 1 mg, Oral, TWICE DAILY, First dose on 10:22 CHIEF STEWARD/STEWARDESS 01/31/18 at 0900, Until Discontinued Given 02/05/2018 1 mg 17:21 CHIEF STEWARD/STEWARDESS Given 02/06/2018 1 mg 08:58 CHIEF STEWARD/STEWARDESS carboxymethylcellulose (REFRESH PLUS) Given 02/05/2018 1 drop 0.5 % ophthalmic solution 1 drop 17:21 CHIEF STEWARD/STEWARDESS 1 drop, Both Eyes, FOUR TIMES DAILY, First dose on 02/01/18 at 0045, Until Discontinued Given 02/05/2018 1 drop 22:32 CHIEF STEWARD/STEWARDESS Given 02/06/2018 1 drop 08:59 CHIEF STEWARD/STEWARDESS cefTRIAXone (ROCEPHIN) IVP 1 g Given 02/02/2018 1 g 1 g, Intravenous, EVERY 24 HOURS, 5 14:32 CHIEF STEWARD/STEWARDESS doses, First dose on 01/31/18 at 1145, Last dose on Fri02/04/18 at 1145, INSTR: IV PUSH -- RECONSTITUTE EACH 1 GM WITH 10 MLS 0.9% NACL Given 02/03/2018 1 g 11:46 CHIEF STEWARD/STEWARDESS Given 02/04/2018 1 g 11:44 CHIEF STEWARD/STEWARDESS dexamethasone (DECADRON) injection 8 mg Given 01/31/2018 8 mg 8 mg, Intravenous, 1 mL, Administer over 13:41 CHIEF STEWARD/STEWARDESS 5 Minutes, EVERY 8 HOURS, 3 doses, [...] via Piggyback. Given 01/31/2018 8 mg 21:14 CHIEF STEWARD/STEWARDESS Given 02/01/2018 8 mg 06:42 CHIEF STEWARD/STEWARDESS docusate (COLACE) capsule 100 mg Given 02/04/2018 100 mg 100 mg, Oral, TWICE DAILY, First dose on 08:59 CHIEF STEWARD/STEWARDESS 01/31/18 at 0115, Until Discontinued, Hold for loose stools Given 02/04/2018 100 mg 20:26 CHIEF STEWARD/STEWARDESS Given 02/05/2018 100 mg 10:24 CHIEF STEWARD/STEWARDESS erythromycin (ROMYCIN) ophthalmic Given 02/03/2018 0.5 inches ointment 0.5 inch 21:59 CHIEF STEWARD/STEWARDESS 0.5 inch, Both Eyes, AT BEDTIME DAILY, First dose on 02/02/18 at 2100, Until Discontinued Given 02/04/2018 0.5 inches 20:26 CHIEF STEWARD/STEWARDESS Given 02/05/2018 0.5 inches 23:24 CHIEF STEWARD/STEWARDESS fentaNYL citrate PF (SUBLIMAZE) Given 01/31/2018 25 mcg injection 25 mcg 13:41 CHIEF STEWARD/STEWARDESS 25 mcg, Intravenous, ONCE, 1 dose, 01/31/18 at 1345 finasteride (PROSCAR) tablet 5 mg Given 02/04/2018 5 mg 5 mg, Oral, DAILY, First dose on Sat 09:00 CHIEF STEWARD/STEWARDESS 01/31/18 at 0900, Until Discontinued, NOTE: If or wanting to become , do not handle broken tablets without gloves due to risk of defects. Given 02/05/2018 5 mg 10:23 CHIEF STEWARD/STEWARDESS Given 02/06/2018 5 mg 08:59 CHIEF STEWARD/STEWARDESS gabapentin (NEURONTIN) capsule 800 mg Given 02/05/2018 800 mg 800 mg, Oral, EVERY 8 HOURS, First dose 14:34 CHIEF STEWARD/STEWARDESS on 01/31/18 at 0115, Until Discontinued Given 02/05/2018 800 mg 22:32 CHIEF STEWARD/STEWARDESS Given 02/06/2018 800 mg 06:16 CHIEF STEWARD/STEWARDESS gadobenate dimeglumine (MULTIHANCE) Given 01/31/2018 20 mL injection 20 mL 04:24 CHIEF STEWARD/STEWARDESS 20 mL, Intravenous, ONCE, 1 dose, 01/31/18 at 0430, NOTE: This is a HIGH ALERT Medication. heparin (porcine) PF syringe 5,000 Units Given 02/01/2018 5,000 Units Abdomen:LLQ 5,000 Units, Subcutaneous, EVERY 8 13:43 CHIEF STEWARD/STEWARDESS HOURS, 2 doses, First dose on 02/01/18 at 1400, Last dose on 02/01/18 at 2200, NOTE: This is a HIGH ALERT Medication. Given 02/01/2018 5,000 Units Abdominal 21:55 CHIEF STEWARD/STEWARDESS Tissue heparin (porcine) PF syringe 5,000 Units Given 02/05/2018 5,000 Units Abdominal 5,000 Units, Subcutaneous, EVERY 8 14:34 CHIEF STEWARD/STEWARDESS Tissue HOURS, First dose on 02/02/18 at 2200, Until Discontinued, NOTE: This is a HIGH ALERT Medication. Given 02/05/2018 5,000 Units Abdomen:LLQ 22:31 CHIEF STEWARD/STEWARDESS Given 02/06/2018 5,000 Units Abdomen:RLQ 06:16 CHIEF STEWARD/STEWARDESS HYDROcodone/acetaminophen (NORCO) 5/325 Given 02/03/2018 2 tablets mg tablet 1-2 tablet 21:58 CHIEF STEWARD/STEWARDESS 1-2 tablet, Oral, EVERY 4 HOURS PRN, Starting 01/31/18 at 0050, Until 02/06/18 at 1519, Pain PO, TOTAL ACETAMINOPHEN DOSE NOT TO EXCEED 4GM DAILY NOTE: This is a HIGH ALERT Medication. Given 02/04/2018 2 tablets 04:17 CHIEF STEWARD/STEWARDESS Given 02/06/2018 2 tablets 11:29 CHIEF STEWARD/STEWARDESS insulin aspart U-100 (NOVOLOG FLEXPEN) Given 02/05/2018 2 Units Abdominal injection PEN 0-14 Units 10:29 CHIEF STEWARD/STEWARDESS Tissue 0-14 Units, Subcutaneous, BEFORE MEALS AND AT BEDTIME, First dose on 02/01/18 at 0730, Until Discontinued, -POC glucose 140-180mg/dL at , , administer 2 units insulin, at 21, 03* administer 0 units. -POC glucose 181-220mg/dL at , , administer 4 units insulin, at 21, 03* administer 2 units. -POC glucose 221-260mg/dL at , , administer 6 units insulin, at , 03* administer 4 units. -POC glucose 261-300mg/dL at , , administer 8 units insulin, at , 03* administer 6 units. -POC glucose 301-350mg/dL at , , administer 10 units insulin, at , 03* administer 8 units. -POC glucose 351-400mg/dL at , , administer 12 units insulin, at , 03* administer 10 units. -POC glucose >400mg/dL at , , administer 14 units insulin, at , 03* administer 12 units. *only if ordered 5x's daily For POCT glucose >350mg/dL give correction bolus and recheck POCT glucose in 2 hours. If POCT glucose at 2 hours >300mg/dL call physician for further orders. For patients who are not eating meals, continue to administer the appropriate correction factor. NOTE: This is a HIGH ALERT Medication. Given 02/05/2018 2 Units Arm, Left 23:27 CHIEF STEWARD/STEWARDESS Given 02/06/2018 2 Units Arm, Left 09:01 CHIEF STEWARD/STEWARDESS insulin aspart U-100 (NOVOLOG FLEXPEN) Given 01/31/2018 1 Units Abdomen :LLQ injection PEN 0-7 Units 17:40 CHIEF STEWARD/STEWARDESS 0-7 Units, Subcutaneous, FIVE TIMES DAILY, First dose on 01/31/18 at 0315, Until Discontinued, -POC glucose 140-180mg/dL at , , administer 1 unit insulin, at 21, 03* administer 0 units. -POC glucose 181-220mg/dL at , administer 2 units insulin, at , * administer 1 unit. -POC glucose 221-260mg/dL at administer 3 units insulin, at , * administer 2 units. -POC glucose 261-300mg/dL at administer 4 units insulin, at , * administer 3 units. -POC glucose 301-350mg/dL at administer 5 units insulin, at , * administer 4 units. -POC glucose 351-400mg/dL at administer 6 units insulin, at , * administer 5 units. -POC glucose >400mg/dL at administer 7 units insulin, at , * [...] Given 01/31/2018 1 Units Arm, Right 21:32 CHIEF STEWARD/STEWARDESS lidocaine (LIDODERM) 5 % topical patch 1 Patch/Topica 02/03/2018 1 patch Back, Lower patch l Applied 21:59 CHIEF STEWARD/STEWARDESS Left 1 patch, Topical, Administer over 12 Hours, EVERY 24 HOURS, First dose on 01/31/18 at 0100, Until Discontinued, NURSING PLEASE NOTE: Apply patch ONCE DAILY to affected areas and REMOVE after designated duration. Apply only to intact skin. Patch may be cut to fit affected area. Patch/Topical Applied 02/04/2018 1 patch Back 22:53 CHIEF STEWARD/STEWARDESS Patch/Topical Applied 02/05/2018 1 patch Back 22:29 CHIEF STEWARD/STEWARDESS lidocaine 1 % (10mg/mL) injection 50 mL Given 01/31/2018 50 mL 50 mL, Injection, ONCE, 1 dose, Sat 13:42 CHIEF STEWARD/STEWARDESS 01/31/18 at 1330 lisinopril (PRINIVIL; ZESTRIL) tablet 20 Given 02/04/2018 20 mg mg 09:00 CHIEF STEWARD/STEWARDESS 20 mg, Oral, DAILY, First dose on 01/31/18 at 0900, Until Discontinued Given 02/05/2018 20 mg 10:23 CHIEF STEWARD/STEWARDESS Given 02/06/2018 20 mg 08:59 CHIEF STEWARD/STEWARDESS loratadine (CLARITIN) tablet 10 mg Given 02/04/2018 10 mg 10 mg, Oral, DAILY, First dose on Sat 09:00 CHIEF STEWARD/STEWARDESS 01/31/18 at 0900, Until Discontinued Given 02/05/2018 10 mg 10:24 CHIEF STEWARD/STEWARDESS Given 02/06/2018 10 mg 08:58 CHIEF STEWARD/STEWARDESS milk of magnesia (CONC) oral suspension Given 02/03/2018 10 mL 10 mL 09:52 CHIEF STEWARD/STEWARDESS 10 mL, Oral, DAILY, First dose on 01/31/18 at 0900, Until Discontinued, May hold if BM within 24 hours of dose. 10 mL CONC=30 mL MOM Given 02/04/2018 10 mL 08:59 CHIEF STEWARD/STEWARDESS Given 02/05/2018 10 mL 10:29 CHIEF STEWARD/STEWARDESS mirtazapine (REMERON) tablet 45 mg Given 02/03/2018 45 mg 45 mg, Oral, AT BEDTIME DAILY, First 21:58 CHIEF STEWARD/STEWARDESS dose on 01/31/18 at 0115, Until Discontinued, Place tablet on tongue Given 02/04/2018 45 mg 20:26 CHIEF STEWARD/STEWARDESS Given 02/05/2018 45 mg 22:37 CHIEF STEWARD/STEWARDESS nitroglycerin (NITROSTAT) tablet 0.4 mg Given 02/04/2018 0.4 mg 0.4 mg, Sublingual, EVERY 5 MIN PRN, 22:02 CHIEF STEWARD/STEWARDESS Starting 01/31/18 at 0121, Until 02/06/18 at 1519, Chest Pain, Not to exceed 3 doses per incident of chest pain. Notify physician if chest pain persists after 3 doses. Given 02/04/2018 0.4 mg 22:11 CHIEF STEWARD/STEWARDESS Given 02/04/2018 0.4 mg 22:18 CHIEF STEWARD/STEWARDESS ofloxacin (FLOXIN) 0.3 % (ophthalmic for Given 02/05/2018 4 drops otic use) solution 4 drop 10:28 CHIEF STEWARD/STEWARDESS 4 drop, Both Ears, TWICE DAILY, First dose on 01/31/18 at 1145, Until Discontinued Given 02/05/2018 4 drops 23:22 CHIEF STEWARD/STEWARDESS Given 02/06/2018 4 drops 09:01 CHIEF STEWARD/STEWARDESS pantoprazole DR (PROTONIX) tablet 40 mg Given 02/03/2018 40 mg 40 mg, Oral, DAILY, First dose on Sat 21:57 CHIEF STEWARD/STEWARDESS 01/31/18 at 0100, Until Discontinued, Do not crush or chew tablet. Given 02/04/2018 40 mg 20:26 CHIEF STEWARD/STEWARDESS Given 02/05/2018 40 mg 22:31 CHIEF STEWARD/STEWARDESS perflutren lipid microspheres (DEFINITY) Given 01/31/2018 1.5 Diluted injection 1-20 Diluted mL 11:46 CHIEF STEWARD/STEWARDESS mL 1-20 Diluted mL, Intravenous, ONCE, 1 dose, 01/31/18 at 1145, NOTE: This is a HIGH ALERT Medication. phenytoin SR (DILANTIN) capsule 300 mg Given 02/04/2018 300 mg 300 mg, Oral, DAILY, First dose on Sat 08:59 CHIEF STEWARD/STEWARDESS 01/31/18 at 0900, Until Discontinued, NOTE: PHARMACOKINETIC MONITORING Given 02/05/2018 300 mg 10:23 CHIEF STEWARD/STEWARDESS Given 02/06/2018 300 mg 08:58 CHIEF STEWARD/STEWARDESS potassium chloride oral solution 40 mEq Given 01/31/2018 40 mEq 40 mEq, Oral, ONCE, 1 dose, 01/31/18 10:41 CHIEF STEWARD/STEWARDESS at 1015 potassium chloride SR (K-DUR) tablet 40 Given 01/31/2018 40 mEq mEq 09:51 CHIEF STEWARD/STEWARDESS 40 mEq, Oral, ONCE, 1 dose, 01/31/18 [...] 40 Given 02/04/2018 40 mEq mEq 09:22 CHIEF STEWARD/STEWARDESS 40 mEq, Oral, ONCE, 1 dose, 02/04/18 at 0915, Do NOT break or crush tablet potassium chloride SR (K-DUR) tablet 40 Given 02/04/2018 40 mEq mEq 13:25 CHIEF STEWARD/STEWARDESS 40 mEq, Oral, ONCE, 1 dose, 02/04/18 at 1330, Do NOT break or crush tablet potassium chloride SR (K-DUR) tablet 40 Given 02/05/2018 40 mEq mEq 05:42 CHIEF STEWARD/STEWARDESS 40 mEq, Oral, ONCE, 1 dose, Gisella [...] 1 Given 02/04/2018 1 tablet tablet 08:59 CHIEF STEWARD/STEWARDESS 1 tablet, Oral, TWICE DAILY, First dose on 01/31/18 at 0115, Until Discontinued, Hold for loose stools. If patient unable to take tablet, give 10 mL of senna/docusate (SENOKOT-S) solution. Send Dib[employer] message to pharmacy. Given 02/04/2018 1 tablet 20:26 CHIEF STEWARD/STEWARDESS Given 02/05/2018 1 tablet 10:22 CHIEF STEWARD/STEWARDESS sertraline (ZOLOFT) tablet 300 mg Given 02/04/2018 300 mg 300 mg, Oral, DAILY, First dose on Sat 08:59 CHIEF STEWARD/STEWARDESS 01/31/18 at 0900, Until Discontinued Given 02/05/2018 300 mg 10:23 CHIEF STEWARD/STEWARDESS Given 02/06/2018 300 mg 08:58 CHIEF STEWARD/STEWARDESS trimethoprim/sulfamethoxazole (BACTRIM Given 02/05/2018 1 tablet DS) 160/800 mg tablet 1 tablet 10:22 CHIEF STEWARD/STEWARDESS 1 tablet, Oral, TWICE DAILY, 28 doses, First dose on Gisella 02/05/18 at 0900, Last dose on Fri02/18/18 at 2100 Given 02/05/2018 1 tablet 22:39 CHIEF STEWARD/STEWARDESS Given 02/06/2018 1 tablet 08:59 CHIEF STEWARD/STEWARDESS in this encounter
--- OUTSIDE RECORDS SUMMARY | 2018-05-02 11:51 | XMS REPORT | Encounter Summary ---
Author Author [facility] Organization [facility] Address Unknown Phone Unavailable Care Team Providers Care Museum Director Name Role Phone Michael Caro MD Unavailable Tia España MD Unavailable Meera Ruano MD Unavailable Sonia Cano MD Unavailable Telma Malcolm RUBBER COVERING MACHINE OPERATOR-BC Unavailable Vincent Quintero MD Unavailable Unavailable Con Rosas MD Unavailable Jesus Tai MD Unavailable Unavailable Murray Russo MD Unavailable Codi Aguirre Unavailable Unavailable Mckay Frias MD Unavailable Siddharth Cortes MD Unavailable Leatha Rajan RN Unavailable Unavailable Nuria Daniel RN Unavailable Unavailable Kati Guerrero RUBBER COVERING MACHINE OPERATOR Unavailable Dorys Colunga RN Unavailable Jasmyn Carrasco Unavailable Unavailable Bhavana Haddad RUBBER COVERING MACHINE OPERATOR-LATEX THREAD MACHINE OPERATOR Unavailable Liza Oglesby MA,CCC-BAKERY ASSISTANT Unavailable Unavailable Edilberto Matute MD Unavailable Unavailable Mckay Walters MD Unavailable Marianne Rosario MA,CCC-BAKERY ASSISTANT Unavailable Unavailable Clint Ayoub RN Unavailable Unavailable Geetha Diez MA,CCC-BAKERY ASSISTANT Unavailable Unavailable Mckay Nathan PA-C Unavailable Evert Jefferson MD Unavailable Serenity Carter MD Unavailable Piedad Oliver RN Unavailable Unavailable Vivi Nelson MD Unavailable Morena Scanlon MD Unavailable Clarence Brink MD Unavailable Jess Savage DO Unavailable Liza Sheth Unavailable Safia Mancia MD PCP Encounter Details Date Type Department Care Team Description 01/30/2018 [facility] Radiology [address] [place] [address] Social History Tobacco Use Types Packs/Day Years [...] mg by mouth twice mg tablet daily. docusate (COLACE) 100 mg Take 1 Cap by mouth twice 60 Cap 0 201202/04/2018 capsule daily as needed for Constipation. empagliflozin (JARDIANCE) Take 25 mg by mouth 02/04/2018 25 mg tab daily. gabapentin (NEURONTIN) Take 1 tablet by [...] twice daily for 14 days. mg tablet VIAGRA 100 mg Take 1 Tab by mouth as 10 Tab 11 12/14/2014 02/04/2018 tabletIndications: ED Needed for Erectile (erectile dysfunction) dysfunction. Take on empty stomach approx 1-4 hrs prior to sexual activity. as of this encounter Plan of Treatment Not on fileas of this encounter Visit Diagnoses Not on filein this encounter
--- OUTSIDE RECORDS SUMMARY | 2018-05-02 11:51 | XMS REPORT | Encounter Summary ---
Author Author [facility] Organization [facility] Address Unknown Phone Unavailable Care Team Providers Care Breakfast Supervisor Name Role Phone Michael Caro MD Unavailable Tia España MD Unavailable Meera Ruano MD Unavailable Sonia Cano MD Unavailable Telma Malcolm CONTINUOUS MINER OPERATOR-BC Unavailable Vincent Quintero MD Unavailable Unavailable Con Rosas MD Unavailable Jesus Tai MD Unavailable Unavailable Murray Russo MD Unavailable Codi Aguirre Unavailable Unavailable Mckay Frias MD Unavailable Siddharth Cortes MD Unavailable Leatha Rajan RN Unavailable Unavailable Nuria Daniel RN Unavailable Unavailable Kati Guerrero CONTINUOUS MINER OPERATOR Unavailable Dorys Colunga RN Unavailable Jasmyn Carrasco Unavailable Unavailable Bhavana Haddad CONTINUOUS MINER OPERATOR-MANUFACTURING QUALITY INSPECTOR Unavailable Liza Oglesby MA,CCC-WATCH DIAL MAKER Unavailable Unavailable Edilberto Matute MD Unavailable Unavailable Mckay Walters MD Unavailable Marianne Rosario MA,CCC-WATCH DIAL MAKER Unavailable Unavailable Clint Ayoub RN Unavailable Unavailable Geetha Diez MA,CCC-WATCH DIAL MAKER Unavailable Unavailable Mckay Nathan PA-C Unavailable Evert Jefferson MD Unavailable Serenity aCrter MD Unavailable Piedad Oliver RN Unavailable Unavailable Vivi Nelson MD Unavailable Morena Scanlon MD Unavailable Clarence Brink MD Unavailable Jess Savage DO Unavailable Liza Sheth Unavailable Safia Mancia MD PCP Encounter Details Date Type Department Care Team Description 01/31/2018 [id number] [place] [address] Social History Tobacco Use Types Packs/Day Years [...]
--- OUTSIDE RECORDS SUMMARY | 2018-05-02 11:51 | XMS REPORT | Encounter Summary ---
Author Author [facility] Organization [facility] Address Unknown Phone Unavailable Care Team Providers Care Critical Care Technician Name Role Phone Michael Caro MD Unavailable Tia España MD Unavailable Meera Ruano MD Unavailable Sonia Cano MD Unavailable Telma Malcolm ORACLE TECHNICAL ARCHITECT-BC Unavailable Vincent Quintero MD Unavailable Unavailable Con Rosas MD Unavailable Jesus Tai MD Unavailable Unavailable Murray Russo MD Unavailable Codi Aguirre Unavailable Unavailable Mckay Frias MD Unavailable Siddharth Cortes MD Unavailable Leatha Rajan RN Unavailable Unavailable Nuria Daniel RN Unavailable Unavailable Kati Guerrero ORACLE TECHNICAL ARCHITECT Unavailable Dorys Colunga RN Unavailable Jasmyn Carrasco Unavailable Unavailable Bhavana Haddad ORACLE TECHNICAL ARCHITECT-MARZIPAN MAKER Unavailable Liza Oglesby MA,CCC-ORANGE GROWER Unavailable Unavailable Edilberto Matute MD Unavailable Unavailable Mckay Walters MD Unavailable Marianne Rosario MA,CCC-ORANGE GROWER Unavailable Unavailable Clint Ayoub RN Unavailable Unavailable Geetha Diez MA,CCC-ORANGE GROWER Unavailable Unavailable Mckay Nathan PA-C Unavailable Evert Jefferson MD Unavailable Serenity Carter MD Unavailable Piedad Oliver RN Unavailable Unavailable Vivi Nelson MD Unavailable Morena Scanlon MD Unavailable Clarence Brink MD Unavailable Jess Savage DO Unavailable Liza Sheth Unavailable Safia Mancia MD PCP Encounter Details Date Type Department Care Team Description 01/31/2018 [facility] [id number] [place] [address] Social History Tobacco Use Types Packs/Day Years [...]
--- OUTSIDE RECORDS SUMMARY | 2018-05-02 11:51 | XMS REPORT | Encounter Summary ---
Author Author [facility] Organization [facility] Address Unknown Phone Unavailable Care Team Providers Care Pleat Taper Name Role Phone Michael Caro MD Unavailable Tia España MD Unavailable Meera Ruano MD Unavailable Sonia Cano MD Unavailable Telma Malcolm OIL PROCESSING TECHNICIAN-BC Unavailable Vincent Quintero MD Unavailable Unavailable Con Rosas MD Unavailable Jesus Tai MD Unavailable Unavailable Murray Russo MD Unavailable Codi Aguirre Unavailable Unavailable Mckay Frias MD Unavailable Siddharth Cortes MD Unavailable Leatha Rajan RN Unavailable Unavailable Nuria Daniel RN Unavailable Unavailable Kati Guerrero OIL PROCESSING TECHNICIAN Unavailable Dorys Colunga RN Unavailable Jasmyn Carrasco Unavailable Unavailable Bhavana Haddad OIL PROCESSING TECHNICIAN-CHEMICAL PLANT WORKER Unavailable Liza Oglesby MA,CCC-ADJUNCT INSTRUCTOR Unavailable Unavailable Edilberto Matute MD Unavailable Unavailable Mckay Walters MD Unavailable Marianne Rosario MA,CCC-ADJUNCT INSTRUCTOR Unavailable Unavailable Clint Ayoub RN Unavailable Unavailable Geetha Diez MA,CCC-ADJUNCT INSTRUCTOR Unavailable Unavailable Mckay Nathan PA-C Unavailable Evert Jefferson MD Unavailable Serenity Carter MD Unavailable Piedad Oliver RN Unavailable Unavailable Vivi Nelson MD Unavailable Morena Scanlon MD Unavailable Clarence Brink MD Unavailable Jess Savage DO Unavailable Liza Sheth Unavailable Safia Mancia MD PCP Encounter Details Date Type Department Care Team Description 01/31/2018 [facility] [id number] [place] [address] Social History Tobacco Use Types Packs/Day Years [...]
--- OUTSIDE RECORDS SUMMARY | 2018-05-02 11:51 | XMS REPORT | Encounter Summary ---
Author Author [facility] Organization [facility] Address Unknown Phone Unavailable Care Team Providers Care Draft Roller Picker Name Role Phone Michael Caro MD Unavailable Tia España MD Unavailable Meera Ruano MD Unavailable Sonia Cano MD Unavailable Telma Malcolm CANDLE MOLDER-BC Unavailable Vincent Quintero MD Unavailable Unavailable Con Rosas MD Unavailable Jesus Tai MD Unavailable Unavailable Murray Russo MD Unavailable Codi Aguirre Unavailable Unavailable Mckay Frias MD Unavailable Siddharth Cortes MD Unavailable Leatha Rajan RN Unavailable Unavailable Nuria Daniel RN Unavailable Unavailable Kati Guerrero CANDLE MOLDER Unavailable Dorys Colunga RN Unavailable Jasmyn Carrasco Unavailable Unavailable Bhavana Haddad CANDLE MOLDER-PHYSICAL THERAPY SUPERVISOR Unavailable Liza Oglesby MA,CCC-PANTOGRAPH ENGRAVER Unavailable Unavailable Edilberto Matute MD Unavailable Unavailable Mckay Walters MD Unavailable Marianne Rosario MA,CCC-PANTOGRAPH ENGRAVER Unavailable Unavailable Clint Ayoub RN Unavailable Unavailable Geetha Diez MA,CCC-PANTOGRAPH ENGRAVER Unavailable Unavailable Mckay Nathan PA-C Unavailable Evert Jefferson MD Unavailable Serenity Carter MD Unavailable Piedad Oliver RN Unavailable Unavailable Vivi Nelson MD Unavailable Morena Scanlon MD Unavailable Clarence Brink MD Unavailable Jess Savage DO Unavailable Liza Sheth Unavailable Safia Mancia MD PCP Encounter Details Date Type Department Care Team Description 01/30/2018 [facility] [address] [place] [address] Social History Tobacco Use Types Packs/Day Years [...]
--- OUTSIDE RECORDS SUMMARY | 2018-05-02 11:52 | XMS REPORT | Encounter Summary ---
Author Author [facility] Organization [facility] Address Unknown Phone Unavailable Care Team Providers Care Hand Spray Operator Name Role Phone Michael Caro MD Unavailable Tia España MD Unavailable Meera Ruano MD Unavailable Sonia Cano MD Unavailable Telma Malcolm GOVERNMENT SERVICE EXECUTIVE-BC Unavailable Vincent Quintero MD Unavailable Unavailable Con Rosas MD Unavailable Jesus Tai MD Unavailable Unavailable Murray Russo MD Unavailable Codi Aguirre Unavailable Unavailable Mckay Frias MD Unavailable Siddharth Cortes MD Unavailable Leatha Rajan RN Unavailable Unavailable Nuria Daniel RN Unavailable Unavailable Kati Guerrero GOVERNMENT SERVICE EXECUTIVE Unavailable Dorys Colunga RN Unavailable Jasmyn Carrasco Unavailable Unavailable Bhavana Haddad GOVERNMENT SERVICE EXECUTIVE-REGIONAL GEODETIC ADVISOR Unavailable Liza Oglesby MA,CCC-LINK TRAINER Unavailable Unavailable Edilberto Matute MD Unavailable Unavailable Mckay Walters MD Unavailable Marianne Rosario MA,CCC-LINK TRAINER Unavailable Unavailable Clint Ayoub RN Unavailable Unavailable Geetha Diez MA,CCC-LINK TRAINER Unavailable Unavailable Mckay Nathan PA-C Unavailable Evert Jefferson MD Unavailable Serenity Carter MD Unavailable Piedad Oliver RN Unavailable Unavailable Vivi Nelson MD Unavailable Morena Scanlon MD Unavailable Clarence Brink MD Unavailable Jess Savage DO Unavailable Liza Sheth Unavailable Safia Mancia MD PCP Encounter Details Date Type Department Care Team Description 01/30/2018 [facility] [address] [place] [address] Social History Tobacco Use Types Packs/Day Years [...]
--- OUTSIDE RECORDS SUMMARY | 2018-05-02 11:53 | XMS REPORT | Continuity of Care Document ---
Author Author [facility] of [facility] of [facility] Address Unknown Phone Unavailable Allergies Active Description Code Type Severity Reaction Onset Reported/Identified Relationship to Patient Clinical Status Yes NO KNOWN DRUG ALLERGIES NO KNOWN DRUG ALLERG UNKNOWN Yes NO KNOWN DRUG ALLERGIES UNKNOWN NO KNOWN DRUG ALLERG Yes PENICILLINS UNKNOWN UNKNOWN Yes NKANo Known Allergies NKA Miscellaneous Allergy Unknown N/A 07/08/2006 Medications Medication Packaging Start Date Stop Date Route Dosage Sig KETOROLAC VIAL INJ 30 MG/CC (TORADOL VIAL) MG 10/22/2016 10/22/2016 PRN ONCE NORMAL SALINE 1000CC IV BAG INJ 0.9 % (NS 1000CC IV BAG) ml 01/30/2018 01/30/2018 ONCE&1556 NORMAL SALINE 1000CC IV BAG INJ 0.9 % (NS 1000CC IV BAG) ml 01/30/2018 01/30/2018 ONCE&1600 ALBUTEROL SVN 2.5MG/3CC LIQ 2.5 MG (PROVENTIL GIANCARLO 2.5MG/3CC) MG 01/30/2018 01/30/2018 PRN ONCE KETOROLAC VIAL INJ 30 MG/CC (TORADOL VIAL) MG 01/30/2018 01/30/2018 PRN ONCE TROPICAMIDE OPHTH SOLN DRP 1 % (MYDRIACYL EYE DROP) drop 01/30/2018 01/30/2018 ONCE&1817 FENTANYL INJ 100 MCG/2CC VIAL MCG 01/30/2018 01/30/2018 ONCE&1840 ASPIRIN 81MG CHEWABLE TAB 81 MG (BABY ASPIRIN) MG 01/30/2018 01/30/2018 ONCE&1911 Problems Date Dx Coded Attending Type Code Diagnosis Diagnosed By 06/29/2009 311 MO DEPRESS NOS 06/29/2009 ENRRIQUE FREEMAN, LUIS Gilbert 311 MO DEPRESS NOS 06/29/2009 ENRRIQUE PHD, LUIS Gilbert 311 MO DEPRESS NOS 06/29/2009 ENRRIQUE PHDLUIS 311 MO DEPRESS NOS 07/14/2009 301.6 PD DEPENDENT 07/14/2009 LUIS OSUNA PHD 301.6 PD DEPENDENT 07/14/2009 ENRRIQUE FREEMAN, LUIS Gilbert 301.6 PD DEPENDENT 07/14/2009 LUIS OSUNA PHD [...] 09/11/2015 Ot 780.96 09/11/2015 Ot 790.5 09/30/2015 HEATHER ALATORRE, JESSICA Ot G47.33 OBSTRUCTIVE SLEEP APNEA (ADULT) (PEDIATR 10/31/2015 Ot 780.96 10/31/2015 Ot 790.5 10/22/2016 Noe Salinas 847.0 NECK SPRAIN 10/22/2016 Noe Salinas 920 CONTUSION OF FACE, SCALP, AND NECK EXCEPT EYE(S) 10/22/2016 Noe Salinas S00.83XA CONTUSION OF OTHER PART OF HEAD, INITIAL ENCOUNTER 10/22/2016 Noe Salinas S16.1XXA STRAIN OF MUSCLE, FASCIA AND TENDON AT NECK LEVEL, INITIAL ENCOUNTER 01/30/2018 Orestes Walsh 250.00 DIABETES MELLITUS WITHOUT MENTION OF COMPLICATION, TYPE II OR UNSPECIFIED TYPE, NOT STATED UNCONTROLLED 01/30/2018 Orestes Walsh 401.0 MALIGNANT ESSENTIAL HYPERTENSION 01/30/2018 Orestes Walsh 427.9 CARDIAC DYSRHYTHMIA, UNSPECIFIED 01/30/2018 Orestes Walsh 781.94 FACIAL WEAKNESS 01/30/2018 Orestes Walsh 786.5 01/30/2018 Orestes Walsh E11.9 TYPE 2 DIABETES MELLITUS WITHOUT COMPLICATIONS 01/30/2018 Orestes Walsh I10 ESSENTIAL (PRIMARY) HYPERTENSION 01/30/2018 Orestes Walsh R00.8 OTHER ABNORMALITIES OF HEART BEAT 01/30/2018 Orestes Walsh R07.89 OTHER CHEST PAIN 01/30/2018 Orestes Walsh R29.810 FACIAL WEAKNESS 02/10/2018 STEPHANIE ALATORRE, VALERIE E Ot E11.40 TYPE 2 DIABETES MELLITUS WITH DIABETIC N 02/10/2018 STEPHANIE ALATORRE, VALERIE E Ot F32.9 MAJOR DEPRESSIVE DISORDER, SINGLE EPISOD 02/10/2018 STEPHANIE ALATORRE, VALERIE E Ot F41.9 ANXIETY DISORDER, UNSPECIFIED 02/10/2018 STEPHANIE ALATORRE VALERIE E Ot G43.909 MIGRAINE, UNSP, NOT INTRACTABLE, WITHOUT 02/10/2018 STEPHANIE ALATORRE VALERIE E Ot G47.33 OBSTRUCTIVE SLEEP APNEA (ADULT) (PEDIATR 02/10/2018 STEPHANIE ALATORRE VALERIE E Ot G81.92 HEMIPLEGIA, UNSPECIFIED AFFECTING LEFT D 02/10/2018 STEPHANIE ALATORRE VALERIE E Ot H01.003 UNSPECIFIED BLEPHARITIS RIGHT EYE, UNSPE 02/10/2018 STEPHANIE ALATORRE VALERIE E Ot H01.006 UNSPECIFIED BLEPHARITIS LEFT EYE, UNSPEC 02/10/2018 STEPHANIE ALATORRE VALERIE E Ot H35.342 MACULAR CYST, HOLE, OR PSEUDOHOLE, LEFT 02/10/2018 STEPHANIE ALATORRE VALERIE E Ot H54.62 UNQUALIFIED VISUAL LOSS, LEFT EYE, LUIS EDUARDO 02/10/2018 STEPHANIE ALATORRE, VALERIE E Ot H66.92 OTITIS MEDIA, UNSPECIFIED, LEFT EAR 02/10/2018 STEPHANIE ALATORRE, VALERIE E Ot H70.12 CHRONIC MASTOIDITIS, LEFT EAR 02/10/2018 STEPHANIE ALATORRE, VALERIE E Ot I25.10 ATHSCL HEART DISEASE OF [place] CORONARY 02/10/2018 STEPHANIE ALATORRE, VALERIE E Ot I25.2 OLD MYOCARDIAL INFARCTION 02/10/2018 STEPHANIE ALATORRE, VALERIE E Ot N40.0 BENIGN PROSTATIC HYPERPLASIA WITHOUT LOW 02/10/2018 STEPHANIE ALATORRE, VALERIE E Ot E11.40 TYPE 2 DIABETES MELLITUS WITH DIABETIC N 02/10/2018 STEPHANIE ALATORRE VALERIE E Ot F32.9 MAJOR DEPRESSIVE DISORDER, SINGLE EPISOD 02/10/2018 STEPHANIE ALATORRE VALERIE E Ot F41.9 ANXIETY DISORDER, UNSPECIFIED 02/10/2018 STEPHANIE ALATORRE VALERIE E Ot G43.909 MIGRAINE, UNSP, NOT INTRACTABLE, WITHOUT 02/10/2018 STEPHANIE ALATORRE, VALERIE E Ot G47.33 OBSTRUCTIVE SLEEP APNEA (ADULT) (PEDIATR 02/10/2018 STEPHANIE ALATORRE VALERIE E Ot G81.92 HEMIPLEGIA, UNSPECIFIED AFFECTING LEFT D 02/10/2018 STEPHANIE ALATORRE VALERIE E Ot H01.003 UNSPECIFIED BLEPHARITIS RIGHT EYE, UNSPE 02/10/2018 STEPHANIE ALATORRE, VALERIE E Ot H01.006 UNSPECIFIED BLEPHARITIS LEFT EYE, UNSPEC 02/10/2018 STEPHANIE ALATORRE VALERIE E Ot H35.342 MACULAR CYST, HOLE, OR PSEUDOHOLE, LEFT 02/10/2018 STEPHANIE ALATORRE VALERIE E Ot H54.62 UNQUALIFIED VISUAL LOSS, LEFT EYE, LUIS EDUARDO 02/10/2018 STEPHANIE ALATORRE VALERIE E Ot H66.92 OTITIS MEDIA, UNSPECIFIED, LEFT EAR 02/10/2018 STEPHANIE ALATORRE VALERIE E Ot H70.12 CHRONIC MASTOIDITIS, LEFT EAR 02/10/2018 STEPHANIE ALATORRE VALERIE E Ot I25.10 ATHSCL HEART DISEASE OF [place] CORONARY 02/10/2018 STEPHANIE ALATORRE VALERIE E Ot I25.2 OLD MYOCARDIAL INFARCTION 02/10/2018 STEPHANIE ALATORRE VALERIE E Ot N40.0 BENIGN PROSTATIC HYPERPLASIA WITHOUT LOW 02/10/2018 STEPHANIE ALATORRE VALERIE E Ot E11.40 TYPE 2 DIABETES MELLITUS WITH DIABETIC N 02/10/2018 STEPHANIE ALATORRE VALERIE E Ot F32.9 MAJOR DEPRESSIVE DISORDER, SINGLE EPISOD 02/10/2018 STEPHANIE ALATORRE VALERIE E Ot F41.9 ANXIETY DISORDER, UNSPECIFIED 02/10/2018 STEPHANIE ALATORRE, VALERIE E Ot G43.909 MIGRAINE, UNSP, NOT INTRACTABLE, WITHOUT 02/10/2018 STEPHANIE ALATORRE VALERIE E Ot G47.33 OBSTRUCTIVE SLEEP APNEA (ADULT) (PEDIATR 02/10/2018 STEPHANIE ALATORRE, VALERIE E Ot G81.92 HEMIPLEGIA, UNSPECIFIED AFFECTING LEFT D 02/10/2018 STEPHANIE ALATORRE VALERIE E Ot H01.003 UNSPECIFIED BLEPHARITIS RIGHT EYE, UNSPE 02/10/2018 STEPHANIE ALATORRE VALERIE E Ot H01.006 UNSPECIFIED BLEPHARITIS LEFT EYE, UNSPEC 02/10/2018 STEPHANIE ALATORRE VALERIE E Ot H35.342 MACULAR CYST, HOLE, OR PSEUDOHOLE, LEFT 02/10/2018 STEPHANIE ALATORRE VALERIE E Ot H54.62 UNQUALIFIED VISUAL LOSS, LEFT EYE, LUIS EDUARDO 02/10/2018 STEPHANIE ALATORRE VALERIE E Ot H66.92 OTITIS MEDIA, UNSPECIFIED, LEFT EAR 02/10/2018 STEPHANIE ALATORRE VALERIE E Ot H70.12 CHRONIC MASTOIDITIS, LEFT EAR 02/10/2018 STEPHANIE ALATORRE VALERIE E Ot I25.10 ATHSCL HEART DISEASE OF [place] CORONARY 02/10/2018 STEPHANIE ALATORRE VALERIE E Ot I25.2 OLD MYOCARDIAL INFARCTION 02/10/2018 STEPHANIE ALATORRE VALERIE E Ot N40.0 BENIGN PROSTATIC HYPERPLASIA WITHOUT LOW 02/10/2018 STEPHANIE ALATORRE VALERIE E Ot E11.40 TYPE 2 DIABETES MELLITUS WITH DIABETIC N 02/10/2018 STEPHANIE ALATORRE VALERIE E Ot F32.9 MAJOR DEPRESSIVE DISORDER, SINGLE EPISOD 02/10/2018 STEPHANIE ALATORRE VALERIE E Ot F41.9 ANXIETY DISORDER, UNSPECIFIED 02/10/2018 STEPHANIE ALATORRE VALERIE E Ot G43.909 MIGRAINE, UNSP, NOT INTRACTABLE, WITHOUT 02/10/2018 STEPHANIE ALATORRE VALERIE E Ot G47.33 OBSTRUCTIVE SLEEP APNEA (ADULT) (PEDIATR 02/10/2018 STEPHANIE ALATORRE VALERIE E Ot G81.92 HEMIPLEGIA, UNSPECIFIED AFFECTING LEFT D 02/10/2018 STEPHANIE ALATORRE VALERIE E Ot H01.003 UNSPECIFIED BLEPHARITIS RIGHT EYE, UNSPE 02/10/2018 STEPHANIE ALATORRE VALERIE E Ot H01.006 UNSPECIFIED BLEPHARITIS LEFT EYE, UNSPEC 02/10/2018 STEPHANIE ALATORRE VALERIE E Ot H35.342 MACULAR CYST, HOLE, OR PSEUDOHOLE, LEFT 02/10/2018 STEPHANIE ALATORRE VALERIE E Ot H54.62 UNQUALIFIED VISUAL LOSS, LEFT EYE, LUIS EDUARDO 02/10/2018 STEPHANIE ALATORRE VALERIE E Ot H66.92 OTITIS MEDIA, UNSPECIFIED, LEFT EAR 02/10/2018 STEPHANIE ALATORRE VALERIE E Ot H70.12 CHRONIC MASTOIDITIS, LEFT EAR 02/10/2018 STEPHANIE ALATORRE VALERIE E Ot I25.10 ATHSCL HEART DISEASE OF [place] CORONARY 02/10/2018 JULIENNE BROWN MDIC E Ot I25.2 OLD MYOCARDIAL INFARCTION 02/10/2018 STEPHANIE ALATORRE VALERIE E Ot N40.0 BENIGN PROSTATIC HYPERPLASIA WITHOUT LOW 02/11/2018 STEPHANIE ALATORRE VALERIE E Ot E11.40 TYPE 2 DIABETES MELLITUS WITH DIABETIC N 02/11/2018 JULIENNE BROWN MDIC E Ot F32.9 MAJOR DEPRESSIVE DISORDER, SINGLE EPISOD 02/11/2018 STEPHANIE ALATORRE VALERIE E Ot F41.9 ANXIETY DISORDER, UNSPECIFIED 02/11/2018 JULIENNE BROWN MDIC E Ot G43.909 MIGRAINE, UNSP, NOT INTRACTABLE, WITHOUT 02/11/2018 STEPHANIE ALATORRE VALERIE E Ot G47.33 OBSTRUCTIVE SLEEP APNEA (ADULT) (PEDIATR 02/11/2018 JULIENNE BROWN MDIC E Ot G81.92 HEMIPLEGIA, UNSPECIFIED AFFECTING LEFT D 02/11/2018 STEPHANIE ALATORRE VALERIE E Ot H01.003 UNSPECIFIED BLEPHARITIS RIGHT EYE, UNSPE 02/11/2018 STEPHANIE ALATORRE VALERIE E Ot H01.006 UNSPECIFIED BLEPHARITIS LEFT EYE, UNSPEC 02/11/2018 STEPHANIE ALATORRE VALERIE E Ot H35.342 MACULAR CYST, HOLE, OR PSEUDOHOLE, LEFT 02/11/2018 STEPHANIE ALATORRE VALERIE E Ot H54.62 UNQUALIFIED VISUAL LOSS, LEFT EYE, LUIS EDUARDO 02/11/2018 STEPHANIE ALATORRE VALERIE E Ot H66.92 OTITIS MEDIA, UNSPECIFIED, LEFT EAR 02/11/2018 STEPHANIE ALATORRE VALERIE E Ot H70.12 CHRONIC MASTOIDITIS, LEFT EAR 02/11/2018 STEPHANIE ALATORRE VALERIE E Ot I25.10 ATHSCL HEART DISEASE OF [place] CORONARY 02/11/2018 STEPHANIE ALATORRE VALERIE E Ot I25.2 OLD MYOCARDIAL INFARCTION 02/11/2018 STEPHANIE ALATORRE VALERIE E Ot N40.0 BENIGN PROSTATIC HYPERPLASIA WITHOUT LOW 02/13/2018 STEPHANIE ALATORRE VALERIE E Ot E11.40 TYPE 2 DIABETES MELLITUS WITH DIABETIC N 02/13/2018 STEPHANIE ALATORRE VALERIE E Ot F32.9 MAJOR DEPRESSIVE DISORDER, SINGLE EPISOD 02/13/2018 STEPHANIE ALATORRE VALERIE E Ot F41.9 ANXIETY DISORDER, UNSPECIFIED 02/13/2018 JULIENNE BROWN MDIC E Ot G43.909 MIGRAINE, UNSP, NOT INTRACTABLE, WITHOUT 02/13/2018 STEPHANIE ALATORRE VALERIE E Ot G47.33 OBSTRUCTIVE SLEEP APNEA (ADULT) (PEDIATR 02/13/2018 STEPHANIE ALATORRE VALERIE E Ot G81.92 HEMIPLEGIA, UNSPECIFIED AFFECTING LEFT D 02/13/2018 STEPHANIE ALATORRE VALERIE E Ot H01.003 UNSPECIFIED BLEPHARITIS RIGHT EYE, UNSPE 02/13/2018 STEPHANIE ALATORRE VALERIE E Ot H01.006 UNSPECIFIED BLEPHARITIS LEFT EYE, UNSPEC 02/13/2018 STEPHANIE ALATORRE VALERIE E Ot H35.342 MACULAR CYST, HOLE, OR PSEUDOHOLE, LEFT 02/13/2018 STEPHANIE ALATORRE VALERIE E Ot H54.62 UNQUALIFIED VISUAL LOSS, LEFT EYE, LUIS EDUARDO 02/13/2018 STEPHANIE ALATORRE VALERIE E Ot H66.92 OTITIS MEDIA, UNSPECIFIED, LEFT EAR 02/13/2018 STEPHANIE ALATORRE VALERIE E Ot H70.12 CHRONIC MASTOIDITIS, LEFT EAR 02/13/2018 STEPHANIE ALATORRE VALERIE E Ot I25.10 ATHSCL HEART DISEASE OF [place] CORONARY 02/13/2018 STEPHANIE ALATORRE VALERIE E Ot I25.2 OLD MYOCARDIAL INFARCTION 02/13/2018 STEPHANIE ALATORRE VALERIE E Ot N40.0 BENIGN PROSTATIC HYPERPLASIA WITHOUT LOW 02/13/2018 STEPHANIE ALATORRE VALERIE E Ot Z66 DO NOT RESUSCITATE 02/14/2018 STEPHANIE ALATORRE VALERIE E Ot E11.40 TYPE 2 DIABETES MELLITUS WITH DIABETIC N 02/14/2018 STEPHANIE ALATORRE VALERIE E Ot F32.9 MAJOR DEPRESSIVE DISORDER, SINGLE EPISOD 02/14/2018 STEPHANIE ALATORRE VALERIE E Ot F41.9 ANXIETY DISORDER, UNSPECIFIED 02/14/2018 STEPHANIE ALATORRE VALERIE E Ot G43.909 MIGRAINE, UNSP, NOT INTRACTABLE, WITHOUT 02/14/2018 STEPHANIE ALATORRE VALERIE E Ot G47.33 OBSTRUCTIVE SLEEP APNEA (ADULT) (PEDIATR 02/14/2018 STEPHANIE ALATORRE, VALERIE E Ot G81.92 HEMIPLEGIA, UNSPECIFIED AFFECTING LEFT D 02/14/2018 STEPHANIE ALATORRE, VALERIE E Ot H01.003 UNSPECIFIED BLEPHARITIS RIGHT EYE, UNSPE 02/14/2018 STEPHANIE ALATORRE VALERIE E Ot H01.006 UNSPECIFIED BLEPHARITIS LEFT EYE, UNSPEC 02/14/2018 STEPHANIE ALATORRE VALERIE E Ot H35.342 MACULAR CYST, HOLE, OR PSEUDOHOLE, LEFT 02/14/2018 STEPHANIE ALATORRE VALERIE E Ot H54.62 UNQUALIFIED VISUAL LOSS, LEFT EYE, LUIS EDUARDO 02/14/2018 STEPHANIE ALATORRE VALERIE E Ot H66.92 OTITIS MEDIA, UNSPECIFIED, LEFT EAR 02/14/2018 STEPHANIE ALATORRE VALERIE E Ot H70.12 CHRONIC MASTOIDITIS, LEFT EAR 02/14/2018 STEPHANIE ALATORRE VALERIE E Ot I25.10 ATHSCL HEART DISEASE OF [place] CORONARY 02/14/2018 STEPHANIE ALATORRE VALERIE E Ot I25.2 OLD MYOCARDIAL INFARCTION 02/14/2018 JULIENNE BROWN MDIC E Ot N40.0 BENIGN PROSTATIC HYPERPLASIA WITHOUT LOW 02/14/2018 JULIENNE BROWN MDIC E Ot Z66 DO NOT RESUSCITATE 02/18/2018 STEPHANIE ALATORRE VALERIE E Ot E11.40 TYPE 2 DIABETES MELLITUS WITH DIABETIC N 02/18/2018 JULIENNE BROWN MDIC E Ot F32.9 MAJOR DEPRESSIVE DISORDER, SINGLE EPISOD 02/18/2018 JULIENNE BROWN MDIC E Ot F41.9 ANXIETY DISORDER, UNSPECIFIED 02/18/2018 STEPHANIE ALATORRE VALERIE E Ot G43.909 MIGRAINE, UNSP, NOT INTRACTABLE, WITHOUT 02/18/2018 STEPHANIE ALATORRE VALERIE E Ot G47.33 OBSTRUCTIVE SLEEP APNEA (ADULT) (PEDIATR 02/18/2018 STEPHANIE ALATORRE VALERIE E Ot G81.92 HEMIPLEGIA, UNSPECIFIED AFFECTING LEFT D 02/18/2018 STEPHANIE ALATORRE VALERIE E Ot H01.003 UNSPECIFIED BLEPHARITIS RIGHT EYE, UNSPE 02/18/2018 STEPHANIE ALATORRE VALERIE E Ot H01.006 UNSPECIFIED BLEPHARITIS LEFT EYE, UNSPEC 02/18/2018 STEPHANIE ALATORRE VALERIE E Ot H35.342 MACULAR CYST, HOLE, OR PSEUDOHOLE, LEFT 02/18/2018 STEPHANIE ALATORRE VALERIE E Ot H54.62 UNQUALIFIED VISUAL LOSS, LEFT EYE, LUIS EDUARDO 02/18/2018 STEPHANIE ALATORRE VALERIE E Ot H66.92 OTITIS MEDIA, UNSPECIFIED, LEFT EAR 02/18/2018 STEPHANIE ALATORRE VALERIE E Ot H70.12 CHRONIC MASTOIDITIS, LEFT EAR 02/18/2018 STEPHANIE ALATORRE VALERIE E Ot I25.10 ATHSCL HEART DISEASE OF [place] CORONARY 02/18/2018 STEPHANIE ALATORRE VALERIE E Ot I25.2 OLD MYOCARDIAL INFARCTION 02/18/2018 JULIENNE BROWN MDIC E Ot N40.0 BENIGN PROSTATIC HYPERPLASIA WITHOUT LOW 02/18/2018 JULIENNE BROWN MDIC E Ot Z66 DO NOT RESUSCITATE 02/19/2018 JULIENNE BROWN MDIC E Ot E11.40 TYPE 2 DIABETES MELLITUS WITH DIABETIC N 02/19/2018 JULIENNE BROWN MDIC E Ot F32.9 MAJOR DEPRESSIVE DISORDER, SINGLE EPISOD 02/19/2018 JULIENNE BROWN MDIC E Ot F41.9 ANXIETY DISORDER, UNSPECIFIED 02/19/2018 STEPHANIE ALATORRE VALERIE E Ot G43.909 MIGRAINE, UNSP, NOT INTRACTABLE, WITHOUT 02/19/2018 STEPHANIE ALATORRE VALERIE E Ot G47.33 OBSTRUCTIVE SLEEP APNEA (ADULT) (PEDIATR 02/19/2018 STEPHANIE ALATORRE VALERIE E Ot G81.92 HEMIPLEGIA, UNSPECIFIED AFFECTING LEFT D 02/19/2018 JULIENNE BROWN MDIC E Ot H01.003 UNSPECIFIED BLEPHARITIS RIGHT EYE, UNSPE 02/19/2018 STEPHANIE ALATORRE VALERIE E Ot H01.006 UNSPECIFIED BLEPHARITIS LEFT EYE, UNSPEC 02/19/2018 STEPHANIE ALATORRE VALERIE E Ot H35.342 MACULAR CYST, HOLE, OR PSEUDOHOLE, LEFT 02/19/2018 STEPHANIE ALATORRE VALERIE E Ot H54.62 UNQUALIFIED VISUAL LOSS, LEFT EYE, LUIS EDUARDO 02/19/2018 STEPHANIE ALATORRE VALERIE E Ot H66.92 OTITIS MEDIA, UNSPECIFIED, LEFT EAR 02/19/2018 STEPHANIE ALATORRE VALERIE E Ot H70.12 CHRONIC MASTOIDITIS, LEFT EAR 02/19/2018 STEPHANIE ALATORRE VALERIE E Ot I25.10 ATHSCL HEART DISEASE OF [place] CORONARY 02/19/2018 STEPHANIE ALATORRE VALERIE E Ot I25.2 OLD MYOCARDIAL INFARCTION 02/19/2018 JULIENNE BROWN MDIC E Ot N40.0 BENIGN PROSTATIC HYPERPLASIA WITHOUT LOW 02/19/2018 STEPHANIE ALATORRE VALERIE E Ot Z66 DO NOT RESUSCITATE 02/22/2018 STEPHANIE ALATORRE VALERIE E Ot E11.40 TYPE 2 DIABETES MELLITUS WITH DIABETIC N 02/22/2018 JULIENNE BROWN MDIC E Ot F32.9 MAJOR DEPRESSIVE DISORDER, SINGLE EPISOD 02/22/2018 STEPHANIE ALATORRE VALERIE E Ot F41.9 ANXIETY DISORDER, UNSPECIFIED 02/22/2018 STEPHANIE ALATORRE VALERIE E Ot G43.909 MIGRAINE, UNSP, NOT INTRACTABLE, WITHOUT 02/22/2018 STEPHANIE ALATORRE VALERIE E Ot G47.33 OBSTRUCTIVE SLEEP APNEA (ADULT) (PEDIATR 02/22/2018 STEPHANIE ALATORRE VALERIE E Ot G81.92 HEMIPLEGIA, UNSPECIFIED AFFECTING LEFT D 02/22/2018 STEPHANIE ALATORRE VALERIE E Ot H01.003 UNSPECIFIED BLEPHARITIS RIGHT EYE, UNSPE 02/22/2018 STEPHANIE ALATORRE VALERIE E Ot H01.006 UNSPECIFIED BLEPHARITIS LEFT EYE, UNSPEC 02/22/2018 STEPHANIE ALATORRE VALERIE E Ot H35.342 MACULAR CYST, HOLE, OR PSEUDOHOLE, LEFT 02/22/2018 JULIENNE BROWN MDIC E Ot H54.62 UNQUALIFIED VISUAL LOSS, LEFT EYE, LUIS EDUARDO 02/22/2018 JULIENNE BROWN MDIC E Ot H66.92 OTITIS MEDIA, UNSPECIFIED, LEFT EAR 02/22/2018 STEPHANIE ALATORRE VALERIE E Ot H70.12 CHRONIC MASTOIDITIS, LEFT EAR 02/22/2018 STEPHANIE ALATORRE VALERIE E Ot I25.10 ATHSCL HEART DISEASE OF [place] CORONARY 02/22/2018 STEPHANIE ALATORRE VALERIE E Ot I25.2 OLD MYOCARDIAL INFARCTION 02/22/2018 JULIENNE BROWN MDIC E Ot N40.0 BENIGN PROSTATIC HYPERPLASIA WITHOUT LOW 02/22/2018 STEPHANIE ALATORRE VALERIE E Ot Z66 DO NOT RESUSCITATE 02/23/2018 JULIENNE BROWN MDIC E Ot E11.40 TYPE 2 DIABETES MELLITUS WITH DIABETIC N 02/23/2018 JULIENNE BROWN MDIC E Ot F32.9 MAJOR DEPRESSIVE DISORDER, SINGLE EPISOD 02/23/2018 VALERIE BROWN MD E Ot F41.9 ANXIETY DISORDER, UNSPECIFIED 02/23/2018 JULIENNE BROWN MDIC E Ot G31.84 MILD COGNITIVE IMPAIRMENT, SO STATED 02/23/2018 JULIENNE BROWN MDIC E Ot G43.909 MIGRAINE, UNSP, NOT INTRACTABLE, WITHOUT 02/23/2018 STEPHANIE ALATORRE VALERIE E Ot G47.33 OBSTRUCTIVE SLEEP APNEA (ADULT) (PEDIATR 02/23/2018 STEPHANIE ALATORRE VALERIE E Ot G81.92 HEMIPLEGIA, UNSPECIFIED AFFECTING LEFT D 02/23/2018 STEPHANIE ALATORRE VALERIE E Ot H01.003 UNSPECIFIED BLEPHARITIS RIGHT EYE, UNSPE 02/23/2018 STEPHANIE ALATORRE VALERIE E Ot H01.006 UNSPECIFIED BLEPHARITIS LEFT EYE, UNSPEC 02/23/2018 JULIENNE BROWN MDIC E Ot H35.342 MACULAR CYST, HOLE, OR PSEUDOHOLE, LEFT 02/23/2018 VALERIE BROWN MD E Ot H54.62 UNQUALIFIED VISUAL LOSS, LEFT EYE, LUIS EDUARDO 02/23/2018 VALERIE BROWN MD E Ot H66.92 OTITIS MEDIA, UNSPECIFIED, LEFT EAR 02/23/2018 VALERIE BROWN MD E Ot H70.12 CHRONIC MASTOIDITIS, LEFT EAR 02/23/2018 STEPHANIE ALATORRE VALERIE E Ot I12.9 HYPERTENSIVE CHRONIC KIDNEY DISEASE W ST 02/23/2018 VALERIE BROWN MD Ot I25.10 ATHSCL HEART DISEASE OF [place] CORONARY 02/23/2018 VALERIE BROWN MD Ot I25.2 OLD MYOCARDIAL INFARCTION 02/23/2018 VALERIE BROWN MD Ot N18.9 CHRONIC KIDNEY DISEASE, UNSPECIFIED 02/23/2018 VALERIE BROWN MD Ot N40.0 BENIGN PROSTATIC HYPERPLASIA WITHOUT LOW 02/23/2018 VALERIE BROWN MD Ot R25.1 TREMOR, UNSPECIFIED 02/23/2018 VALERIE BROWN MD Ot Z66 DO NOT RESUSCITATE 03/11/2018 Romero, Sandy-Janis W 383.1 CHRONIC MASTOIDITIS 03/11/2018 Romero, Sandy-Janis W H70.12 CHRONIC MASTOIDITIS, LEFT EAR 03/11/2018 Romero, Sandy-Janis W 383.1 CHRONIC MASTOIDITIS 03/11/2018 Romero, Sandy-Janis W H70.12 CHRONIC MASTOIDITIS, LEFT EAR 03/11/2018 Romero, Sandy-Janis W 383.1 CHRONIC MASTOIDITIS 03/11/2018 Romero, Sandy-Janis W H70.12 CHRONIC MASTOIDITIS, LEFT EAR Procedures Code Description [place] [address] PSYTX PT&/FAMILY 30 MINUTES 03/02/2015 66458 PSYTX PT&/FAMILY 30 MINUTES 03/15/2015 Results Test Result Range Comprehensive Metabolic Panel - 10/22/16 10:33 Albumin 3.9 g/dL 3.6-5.1 ALP 204 U/L 35-130 ALT 18 U/L 6-45 Anion Gap 13 6-14 AST 20 U/L 2-40 BUN 16 mg/dL 5-25 Calcium 9.3 mg/dL 8.3-10.4 Chloride 105 mmol/L 95-114 CO2 26 mEq/L 22-33 Creat 1.06 mg/dL 0.50-1.50 eGFR 70 mL/min/1.73m2 >59 Globulin 3.8 g/dL 2.3-3.5 Glucose 153 mg/dL 70-110 Osmo 293 280-295 Potassium 4.3 mmol/L 3.5-5.3 Sodium 140 mmol/L 134-148 TBil 0.5 mg/dL 0.2-1.2 TP 7.7 g/dL 6.0-8.3 Sed Rate - 08/08/17 22:48 Sed Rate 42 mm/hr 0-9 EKG - 01/30/18 15:01 EKG Complete Troponin I - 01/30/18 15:01 Troponin <0.020 ng/mL 0.0-0.4 Blood Culture - 01/30/18 15:01 PRELIM CULTURE RESULTS Blood Culture Negative, No Growth Day 1 FINAL CULTURE RESULTS Blood Culture Negative, No Growth Day 5 MEDIA PLATED Setup at 17:16 on 01/30/2018 Blood Culture Media Position [id number] CULTURE SOURCE LAC Potassium - 01/30/18 15:57 Potassium 4.6 mmol/L 3.5-5.3 Lactic Acid - 01/30/18 16:51 Lactic Acid 15.7 mg/dL 4.5-19.8 Blood Culture - 01/30/18 16:51 PRELIM CULTURE RESULTS Blood Culture Negative, No Growth Day 1 FINAL CULTURE RESULTS Blood Culture Negative, No Growth Day 5 MEDIA PLATED Setup at 17:16 on 01/30/2018 Blood Culture Media Position [id number] CULTURE SOURCE LH Urinalysis - 01/30/18 18:00 EKG - 01/30/18 18:20 EKG Complete Capillary blood glucose measurement by glucometer (mass/volume) - 02/06/18 16: 26 Capillary blood glucose measurement by glucometer (mass/volume) 177 mg/dL 70-110 Capillary blood glucose measurement by glucometer (mass/volume) - 02/06/18 21: 37 Capillary blood glucose measurement by glucometer (mass/volume) 181 mg/dL 70-110 Capillary blood glucose measurement by glucometer (mass/volume) - 02/07/18 06: 30 Capillary blood glucose measurement by glucometer (mass/volume) 131 mg/dL 70-110 Capillary blood glucose measurement by glucometer (mass/volume) - 02/07/18 11: 21 Capillary blood glucose measurement by glucometer (mass/volume) 203 mg/dL 70-110 Capillary blood glucose measurement by glucometer (mass/volume) - 02/07/18 15: 30 Capillary blood glucose measurement by glucometer (mass/volume) 139 mg/dL 70-110 Capillary blood glucose measurement by glucometer (mass/volume) - 02/07/18 20: 18 Capillary blood glucose measurement by glucometer (mass/volume) 142 mg/dL 70-110 Capillary blood glucose measurement by glucometer (mass/volume) - 02/08/18 05: 47 Capillary blood glucose measurement by glucometer (mass/volume) 132 mg/dL 70-110 Capillary blood glucose measurement by glucometer (mass/volume) - 02/08/18 11: 00 Capillary blood glucose measurement by glucometer (mass/volume) 195 mg/dL 70-110 Capillary blood glucose measurement by glucometer (mass/volume) - 02/08/18 15: 33 Capillary blood glucose measurement by glucometer (mass/volume) 221 mg/dL 70-110 Capillary blood glucose measurement by glucometer (mass/volume) - 02/08/18 21: 11 Capillary blood glucose measurement by glucometer (mass/volume) 119 mg/dL 70-110 Capillary blood glucose measurement by glucometer (mass/volume) - 02/09/18 05: 01 Capillary blood glucose measurement by glucometer (mass/volume) 187 mg/dL 70-110 Capillary blood glucose measurement by glucometer (mass/volume) - 02/09/18 11: 12 Capillary blood glucose measurement by glucometer (mass/volume) 176 mg/dL 70-110 Capillary blood glucose measurement by glucometer (mass/volume) - 02/09/18 16: 01 Capillary blood glucose measurement by glucometer (mass/volume) 192 mg/dL 70-110 Capillary blood glucose measurement by glucometer (mass/volume) - 02/09/18 21: 20 Capillary blood glucose measurement by glucometer (mass/volume) 114 mg/dL 70-110 Capillary blood glucose measurement by glucometer (mass/volume) - 02/10/18 05: 15 Capillary blood glucose measurement by glucometer (mass/volume) 170 mg/dL 70-110 Automated blood complete blood count (hemogram) panel - 02/10/18 06:36 Blood leukocytes automated count (number/volume) 10.6 10*3/uL 4.3-11.0 Blood erythrocytes automated count (number/volume) 4.08 10*6/uL 4.35-5.85 Venous blood hemoglobin measurement (mass/volume) 12.5 g/dL 13.3-17.7 Blood hematocrit (volume fraction) 37 % 40-54 Automated erythrocyte mean corpuscular volume 90 [foz_us] 80-99 Automated erythrocyte mean corpuscular hemoglobin (mass per erythrocyte) 31 pg 25-34 Automated erythrocyte mean corpuscular hemoglobin concentration measurement ( mass/volume) 34 g/dL 32-36 Automated erythrocyte distribution width ratio 15.4 % 10.0-14.5 Automated blood platelet count (count/volume) 166 10*3/uL 130-400 Automated blood platelet mean volume measurement 10.4 [foz_us] 7.4-10.4 Comprehensive metabolic panel - 02/10/18 06:36 Serum or plasma sodium measurement (moles/volume) 140 mmol/L 135-145 Serum or plasma potassium measurement (moles/volume) 3.9 mmol/L 3.6-5.0 Serum or plasma chloride measurement (moles/volume) 108 mmol/L 98-107 Carbon dioxide 23 mmol/L 21-32 Serum or plasma anion gap determination (moles/volume) 9 mmol/L 5-14 Serum or plasma urea nitrogen measurement (mass/volume) 44 mg/dL 7-18 Serum or plasma creatinine measurement (mass/volume) 1.83 mg/dL 0.60-1.30 Serum or plasma urea nitrogen/creatinine mass ratio 24 NRG Serum or plasma creatinine measurement with calculation of estimated glomerular filtration rate 37 NRG Serum or plasma glucose measurement (mass/volume) 161 mg/dL 70-105 Serum or plasma calcium measurement (mass/volume) 9.3 mg/dL 8.5-10.1 Serum or plasma total bilirubin measurement (mass/volume) 0.3 mg/dL 0.1-1.0 Serum or plasma alkaline phosphatase measurement (enzymatic activity/volume) 131 U/L 40-136 Serum or plasma aspartate aminotransferase measurement (enzymatic activity/ volume) 26 U/L 5-34 Serum or plasma alanine aminotransferase measurement (enzymatic activity/volume ) 34 U/L 0-55 Serum or plasma protein measurement (mass/volume) 7.1 g/dL 6.4-8.2 Serum or plasma albumin measurement (mass/volume) 3.7 g/dL 3.2-4.5 Hemoglobin A1c - 02/10/18 06:36 Blood hemoglobin A1C measurement (mass/volume) 6.4 % 4.0- 5.6 MEAN BLOOD GLUCOSE 137 % <=126 DILANTIN (PHENYTOIN) - 02/10/18 06:36 DILANTIN PHEN 2.0 % 10.0-20.0 Capillary blood glucose measurement by glucometer (mass/volume) - 02/10/18 11: 22 Capillary blood glucose measurement by glucometer (mass/volume) 171 mg/dL 70-110 Capillary blood glucose measurement by glucometer (mass/volume) - 02/10/18 15: 43 Capillary blood glucose measurement by glucometer (mass/volume) 153 mg/dL 70-110 Capillary blood glucose measurement by glucometer (mass/volume) - 02/10/18 21: 44 Capillary blood glucose measurement by glucometer (mass/volume) 170 mg/dL 70-110 Capillary blood glucose measurement by glucometer (mass/volume) - 02/11/18 06: 15 Capillary blood glucose measurement by glucometer (mass/volume) 148 mg/dL 70-110 Capillary blood glucose measurement by glucometer (mass/volume) - 02/11/18 11: 59 Capillary blood glucose measurement by glucometer (mass/volume) 140 mg/dL 70-110 Capillary blood glucose measurement by glucometer (mass/volume) - 02/11/18 16: 06 Capillary blood glucose measurement by glucometer (mass/volume) 134 mg/dL 70-110 Capillary blood glucose measurement by glucometer (mass/volume) - 02/11/18 20: 23 Capillary blood glucose measurement by glucometer (mass/volume) 117 mg/dL 70-110 Capillary blood glucose measurement by glucometer (mass/volume) - 02/12/18 05: 55 Capillary blood glucose measurement by glucometer (mass/volume) 112 mg/dL 70-110 Capillary blood glucose measurement by glucometer (mass/volume) - 02/12/18 11: 08 Capillary blood glucose measurement by glucometer (mass/volume) 188 mg/dL 70-110 Capillary blood glucose measurement by glucometer (mass/volume) - 02/12/18 15: 55 Capillary blood glucose measurement by glucometer (mass/volume) 95 mg/dL 70-110 Capillary blood glucose measurement by glucometer (mass/volume) - 02/12/18 20: 07 Capillary blood glucose measurement by glucometer (mass/volume) 246 mg/dL 70-110 Capillary blood glucose measurement by glucometer (mass/volume) - 02/13/18 05: 34 Capillary blood glucose measurement by glucometer (mass/volume) 190 mg/dL 70-110 Capillary blood glucose measurement by glucometer (mass/volume) - 02/13/18 11: 08 Capillary blood glucose measurement by glucometer (mass/volume) 113 mg/dL 70-110 Capillary blood glucose measurement by glucometer (mass/volume) - 02/13/18 16: 41 Capillary blood glucose measurement by glucometer (mass/volume) 166 mg/dL 70-110 Capillary blood glucose measurement by glucometer (mass/volume) - 02/13/18 20: 48 Capillary blood glucose measurement by glucometer (mass/volume) 236 mg/dL 70-110 Capillary blood glucose measurement by glucometer (mass/volume) - 02/14/18 05: 12 Capillary blood glucose measurement by glucometer (mass/volume) 281 mg/dL 70-110 Capillary blood glucose measurement by glucometer (mass/volume) - 02/14/18 11: 10 Capillary blood glucose measurement by glucometer (mass/volume) 220 mg/dL 70-110 Capillary blood glucose measurement by glucometer (mass/volume) - 02/14/18 16: 39 Capillary blood glucose measurement by glucometer (mass/volume) 204 mg/dL 70-110 Capillary blood glucose measurement by glucometer (mass/volume) - 02/14/18 20: 59 Capillary blood glucose measurement by glucometer (mass/volume) 270 mg/dL 70-110 Capillary blood glucose measurement by glucometer (mass/volume) - 02/15/18 05: 35 Capillary blood glucose measurement by glucometer (mass/volume) 173 mg/dL 70-110 Capillary blood glucose measurement by glucometer (mass/volume) - 02/15/18 11: 17 Capillary blood glucose measurement by glucometer (mass/volume) 156 mg/dL 70-110 Capillary blood glucose measurement by glucometer (mass/volume) - 02/15/18 16: 35 Capillary blood glucose measurement by glucometer (mass/volume) 199 mg/dL 70-110 Capillary blood glucose measurement by glucometer (mass/volume) - 02/15/18 20: 19 Capillary blood glucose measurement by glucometer (mass/volume) 173 mg/dL 70-110 Capillary blood glucose measurement by glucometer (mass/volume) - 02/16/18 05: 27 Capillary blood glucose measurement by glucometer (mass/volume) 138 mg/dL 70-110 Comprehensive metabolic panel - 02/16/18 05:50 Serum or plasma sodium measurement (moles/volume) 139 mmol/L 135-145 Serum or plasma potassium measurement (moles/volume) 5.6 mmol/L 3.6-5.0 Serum or plasma chloride measurement (moles/volume) 110 mmol/L 98-107 Carbon dioxide 19 mmol/L 21-32 Serum or plasma anion gap determination (moles/volume) 10 mmol/L 5-14 Serum or plasma urea nitrogen measurement (mass/volume) 81 mg/dL 7-18 Serum or plasma creatinine measurement (mass/volume) 2.51 mg/dL 0.60-1.30 Serum or plasma urea nitrogen/creatinine mass ratio 32 NRG Serum or plasma creatinine measurement with calculation of estimated glomerular filtration rate 26 NRG Serum or plasma glucose measurement (mass/volume) 135 mg/dL 70-105 Serum or plasma calcium measurement (mass/volume) 9.5 mg/dL 8.5-10.1 Serum or plasma total bilirubin measurement (mass/volume) 0.3 mg/dL 0.1-1.0 Serum or plasma alkaline phosphatase measurement (enzymatic activity/volume) 124 U/L 40-136 Serum or plasma aspartate aminotransferase measurement (enzymatic activity/ volume) 24 U/L 5-34 Serum or plasma alanine aminotransferase measurement (enzymatic activity/volume ) 29 U/L 0-55 Serum or plasma protein measurement (mass/volume) 6.9 g/dL 6.4-8.2 Serum or plasma albumin measurement (mass/volume) 3.8 g/dL 3.2-4.5 Capillary blood glucose measurement by glucometer (mass/volume) - 02/16/18 11: 30 Capillary blood glucose measurement by glucometer (mass/volume) 181 mg/dL 70-110 Capillary blood glucose measurement by glucometer (mass/volume) - 02/16/18 16: 19 Capillary blood glucose measurement by glucometer (mass/volume) 104 mg/dL 70-110 Capillary blood glucose measurement by glucometer (mass/volume) - 02/16/18 22: 26 Capillary blood glucose measurement by glucometer (mass/volume) 159 mg/dL 70-110 Capillary blood glucose measurement by glucometer (mass/volume) - 02/17/18 06: 33 Capillary blood glucose measurement by glucometer (mass/volume) 167 mg/dL 70-110 Whole blood basic metabolic panel - 02/17/18 06:34 Serum or plasma sodium measurement (moles/volume) 139 mmol/L 135-145 Serum or plasma potassium measurement (moles/volume) 5.2 mmol/L 3.6-5.0 Serum or plasma chloride measurement (moles/volume) 108 mmol/L 98-107 Carbon dioxide 17 mmol/L 21-32 Serum or plasma anion gap determination (moles/volume) 14 mmol/L 5-14 Serum or plasma urea nitrogen measurement (mass/volume) 89 mg/dL 7-18 Serum or plasma creatinine measurement (mass/volume) 2.54 mg/dL 0.60-1.30 Serum or plasma urea nitrogen/creatinine mass ratio 35 NRG Serum or plasma creatinine measurement with calculation of estimated glomerular filtration rate 25 NRG Serum or plasma glucose measurement (mass/volume) 167 mg/dL 70-105 Serum or plasma calcium measurement (mass/volume) 10.0 mg/dL 8.5-10.1 Capillary blood glucose measurement by glucometer (mass/volume) - 02/17/18 11: 32 Capillary blood glucose measurement by glucometer (mass/volume) 237 mg/dL 70-110 Capillary blood glucose measurement by glucometer (mass/volume) - 02/17/18 16: 09 Capillary blood glucose measurement by glucometer (mass/volume) 224 mg/dL 70-110 Capillary blood glucose measurement by glucometer (mass/volume) - 02/17/18 20: 51 Capillary blood glucose measurement by glucometer (mass/volume) 226 mg/dL 70-110 Capillary blood glucose measurement by glucometer (mass/volume) - 02/18/18 06: 12 Capillary blood glucose measurement by glucometer (mass/volume) 184 mg/dL 70-110 Whole blood basic metabolic panel - 02/18/18 06:23 Serum or plasma sodium measurement (moles/volume) 139 mmol/L 135-145 Serum or plasma potassium measurement (moles/volume) 5.2 mmol/L 3.6-5.0 Serum or plasma chloride measurement (moles/volume) 110 mmol/L 98-107 Carbon dioxide 19 mmol/L 32 Serum or plasma anion gap determination (moles/volume) 10 mmol/L 5-14 Serum or plasma urea nitrogen measurement (mass/volume) 85 mg/dL 7-18 Serum or plasma creatinine measurement (mass/volume) 2.18 mg/dL 0.60-1.30 Serum or plasma urea nitrogen/creatinine mass ratio 39 NRG Serum or plasma creatinine measurement with calculation of estimated glomerular filtration rate 30 NRG Serum or plasma glucose measurement (mass/volume) 193 mg/dL 70-105 Serum or plasma calcium measurement (mass/volume) 9.9 mg/dL 8.5-10.1 Capillary blood glucose measurement by glucometer (mass/volume) - 02/18/18 11: 37 Capillary blood glucose measurement by glucometer (mass/volume) 219 mg/dL 70-110 Capillary blood glucose measurement by glucometer (mass/volume) - 02/18/18 17: 32 Capillary blood glucose measurement by glucometer (mass/volume) 125 mg/dL 70-110 Capillary blood glucose measurement by glucometer (mass/volume) - 02/18/18 21: 04 Capillary blood glucose measurement by glucometer (mass/volume) 234 mg/dL 70-110 Capillary blood glucose measurement by glucometer (mass/volume) - 02/19/18 05: 33 Capillary blood glucose measurement by glucometer (mass/volume) 182 mg/dL 70-110 Whole blood basic metabolic panel - 02/19/18 06:38 Serum or plasma sodium measurement (moles/volume) 138 mmol/L 135-145 Serum or plasma potassium measurement (moles/volume) 4.8 mmol/L 3.6-5.0 Serum or plasma chloride measurement (moles/volume) 110 mmol/L 98-107 Carbon dioxide 18 mmol/L 21-32 Serum or plasma anion gap determination (moles/volume) 10 mmol/L 5-14 Serum or plasma urea nitrogen measurement (mass/volume) 80 mg/dL 7-18 Serum or plasma creatinine measurement (mass/volume) 1.61 mg/dL 0.60-1.30 Serum or plasma urea nitrogen/creatinine mass ratio 50 NRG Serum or plasma creatinine measurement with calculation of estimated glomerular filtration rate 43 NRG Serum or plasma glucose measurement (mass/volume) 194 mg/dL 70-105 Serum or plasma calcium measurement (mass/volume) 10.1 mg/dL 8.5-10.1 Capillary blood glucose measurement by glucometer (mass/volume) - 02/19/18 11: 16 Capillary blood glucose measurement by glucometer (mass/volume) 180 mg/dL 70-110 Capillary blood glucose measurement by glucometer (mass/volume) - 02/19/18 16: 26 Capillary blood glucose measurement by glucometer (mass/volume) 121 mg/dL 70-110 Capillary blood glucose measurement by glucometer (mass/volume) - 02/19/18 20: 24 Capillary blood glucose measurement by glucometer (mass/volume) 148 mg/dL 70-110 Whole blood basic metabolic panel - 02/20/18 05:17 Serum or plasma sodium measurement (moles/volume) 138 mmol/L 135-145 Serum or plasma potassium measurement (moles/volume) 4.4 mmol/L 3.6-5.0 Serum or plasma chloride measurement (moles/volume) 110 mmol/L 98-107 Carbon dioxide 18 mmol/L 21-32 Serum or plasma anion gap determination (moles/volume) 10 mmol/L 5-14 Serum or plasma urea nitrogen measurement (mass/volume) 71 mg/dL 7-18 Serum or plasma creatinine measurement (mass/volume) 1.51 mg/dL 0.60-1.30 Serum or plasma urea nitrogen/creatinine mass ratio 47 NRG Serum or plasma creatinine measurement with calculation of estimated glomerular filtration rate 46 NRG Serum or plasma glucose measurement (mass/volume) 187 mg/dL 70-105 Serum or plasma calcium measurement (mass/volume) 9.6 mg/dL 8.5-10.1 Capillary blood glucose measurement by glucometer (mass/volume) - 02/20/18 05: 19 Capillary blood glucose measurement by glucometer (mass/volume) 187 mg/dL 70-110 Capillary blood glucose measurement by glucometer (mass/volume) - 02/20/18 11: 00 Capillary blood glucose measurement by glucometer (mass/volume) 226 mg/dL 70-110 Capillary blood glucose measurement by glucometer (mass/volume) - 02/20/18 15: 53 Capillary blood glucose measurement by glucometer (mass/volume) 116 mg/dL 70-110 Capillary blood glucose measurement by glucometer (mass/volume) - 02/20/18 20: 30 Capillary blood glucose measurement by glucometer (mass/volume) 155 mg/dL 70-110 Capillary blood glucose measurement by glucometer (mass/volume) - 02/21/18 04: 56 Capillary blood glucose measurement by glucometer (mass/volume) 178 mg/dL 70-110 Capillary blood glucose measurement by glucometer (mass/volume) - 02/21/18 11: 18 Capillary blood glucose measurement by glucometer (mass/volume) 252 mg/dL 70-110 Capillary blood glucose measurement by glucometer (mass/volume) - 02/21/18 15: 59 Capillary blood glucose measurement by glucometer (mass/volume) 148 mg/dL 70-110 Capillary blood glucose measurement by glucometer (mass/volume) - 02/21/18 19: 45 Capillary blood glucose measurement by glucometer (mass/volume) 212 mg/dL 70-110 Capillary blood glucose measurement by glucometer (mass/volume) - 02/22/18 04: 38 Capillary blood glucose measurement by glucometer (mass/volume) 107 mg/dL 70-110 Capillary blood glucose measurement by glucometer (mass/volume) - 02/22/18 10: 43 Capillary blood glucose measurement by glucometer (mass/volume) 110 mg/dL 70-110 Capillary blood glucose measurement by glucometer (mass/volume) - 02/22/18 16: 01 Capillary blood glucose measurement by glucometer (mass/volume) 175 mg/dL 70-110 Capillary blood glucose measurement by glucometer (mass/volume) - 02/22/18 20: 31 Capillary blood glucose measurement by glucometer (mass/volume) 153 mg/dL 70-110 Capillary blood glucose measurement by glucometer (mass/volume) - 02/23/18 05: 27 Capillary blood glucose measurement by glucometer (mass/volume) 135 mg/dL 70-110 Capillary blood glucose measurement by glucometer (mass/volume) - 02/23/18 11: 29 Capillary blood glucose measurement by glucometer (mass/volume) 217 mg/dL 70-110 Other Culture - 03/11/18 11:00 PRELIM CULTURE RESULTS Scant Coag Negative [id number] is only done at Dr. Request.[id number] contact lab if requests MUMTAZ. FINAL CULTURE RESULTS NO Pathogens Isolated MEDIA PLATED Setup at 14:47 on 03/11/2018 Complete blood count (CBC) with automated white blood cell (WBC) differential - 05/02/18 11:20 Blood leukocytes automated count (number/volume) 13.9 10*3/uL 4.3-11.0 Blood erythrocytes automated count (number/volume) 4.38 10*6/uL 4.35-5.85 Venous blood hemoglobin measurement (mass/volume) 13.4 g/dL 13.3-17.7 Blood hematocrit (volume fraction) 38 % 40-54 Automated erythrocyte mean corpuscular volume 87 [foz_us] 80-99 Automated erythrocyte mean corpuscular hemoglobin (mass per erythrocyte) 31 pg 25-34 Automated erythrocyte mean corpuscular hemoglobin concentration measurement ( mass/volume) 35 g/dL 32-36 Automated erythrocyte distribution width ratio 14.7 % 10.0-14.5 Automated blood platelet count (count/volume) 174 10*3/uL 130-400 Automated blood platelet mean volume measurement 10.4 [foz_us] 7.4-10.4 Automated blood neutrophils/100 leukocytes 65 % 42-75 Automated blood lymphocytes/100 leukocytes 24 % 12-44 Blood monocytes/100 leukocytes 9 % 0-12 Automated blood eosinophils/100 leukocytes 2 % 0-10 Automated blood basophils/100 leukocytes 0 % 0-10 Blood neutrophils automated count (number/volume) 9.0 10*3 1.8-7.8 Blood lymphocytes automated count (number/volume) 3.4 10*3 1.0-4.0 Blood monocytes automated count (number/volume) 1.2 10*3 0.0-1.0 Automated eosinophil count 0.3 10*3/uL 0.0-0.3 Automated blood basophil count (count/volume) 0.0 10*3/uL 0.0-0.1 PT panel in platelet poor plasma by coagulation assay - 05/02/18 11:20 Prothrombin time (PT) in platelet poor plasma by coagulation assay 13.8 s 12.2-14.7 INR in platelet poor plasma or blood by coagulation assay 1.1 0.8-1.4 Activated partial thromboplastin time (aPTT) in platelet poor plasma bycoagulation assay - 05/02/18 11:20 Activated partial thromboplastin time (aPTT) in platelet poor plasma bycoagulation assay 29 s 24-35 Encounters ACCT No. Visit Date/Time Discharge Status Pt. Type Provider Facility Loc./Unit Complaint [id number] 03/15/2015 09:53:00 03/15/2015 23:59:59 [facility] Outpatient LUIS OSUNA PHD [id number] 03/02/2015 10:46:00 03/02/2015 23:59:59 [facility] Outpatient LUIS OSUNA PHD [id number] 02/13/2015 10:09:00 02/13/2015 23:59:59 [facility] Outpatient LUIS OSUNA PHD [id number] 01/15/2010 10:19:00 01/15/2010 23:59:59 [facility] Outpatient [id number] 03/11/2018 14:33:00 Document Registration [id number] 02/06/2018 14:20:00 02/23/2018 11:45:00 DIS Inpatient BROWN MD, VALERIE E [facility] IRF STROKE-LIKE SYMPTOMS, LEFT SIDED WEAKNESS [id number] 09/29/2015 20:05:00 09/30/2015 07:26:00 DIS Outpatient JESSICA ROMERO MD [facility] SLEEP SLEEP APNEA [id number] 05/02/2018 11:39:00 Document Registration [id number] 02/11/2011 09:47:00 Document Registration [id number] 12/19/2010 12:59:00 Document Registration [id number] 03/11/2018 14:33:00 03/11/2018 23:59:00 DIS Outpatient Jessica Romero [id number] 01/30/2018 14:48:00 01/30/2018 20:55:00 DIS Outpatient Orestes Walsh [id number] 08/08/2017 22:48:00 08/08/2017 23:59:00 DIS Outpatient Jessica Romero [id number] 10/22/2016 10:03:00 10/22/2016 12:38:00 DIS Outpatient Noe Salnias [id number] 11/12/2016 10:55:39 Document Registration [id number] 10/22/2016 12:13:10 Document Registration
[2018-05-02 11:55] LABS: ALANINE AMINOTRANSFERASE 34 U/L (0-55); ALBUMIN 3.8 GM/DL (3.2-4.5); ALKALINE PHOSPHATASE 207 U/L (40-136); BILIRUBIN,TOTAL 0.4 MG/DL (0.1-1.0); BUN/CREATININE RATIO 17; CALCIUM 9.8 MG/DL (8.5-10.1); CARBON DIOXIDE 22 MMOL/L (21-32); CHLORIDE 102 MMOL/L (98-107); CREATININE SERUM 1.35 MG/DL (0.60-1.30); GFR ESTIMATED 53; GLUCOSE 344 MG/DL (70-105); LIPASE 75 U/L (8-78); MAGNESIUM 2.4 MG/DL (1.8-2.4); POTASSIUM 4.9 MMOL/L (3.6-5.0); SODIUM 136 MMOL/L (135-145); TOTAL PROTEIN 7.9 GM/DL (6.4-8.2)
[2018-05-02 12:02] LABS: MYOGLOBIN SERUM 48.6 NG/ML (10.0-92.0)
--- NOTE | 2018-05-02 12:28 | Diagnostic Imaging Report ---
EXAMINATION: Portable erect AP chest at 1149. INDICATION: Chest pain The heart size is within normal limits and stable when compared to 12/19/2010. The lungs are clear. There is no sign of failure, pneumonia or pleural effusion to suggest an acute abnormality. The mediastinum is not widened. The osseous structures are intact. The battery pack overlying the left scapula seen previously is again evident and no different. IMPRESSION: Stable chest. There has been no adverse change since the prior exam. Dictated by: Dictated on workstation # [id number]
[2018-05-02] MEDS ORDERED: ENOXAPARIN 100 MG/1 ML (LOVENOX) SYR SC ONE (13:15)
[2018-05-02] MEDS ORDERED: ACETAMINOPHEN 500 MG TAB (TYLENOL) PO ONE (13:15)
[2018-05-02] MEDS ORDERED: ENOXAPARIN 30 MG/0.3 ML (LOVENOX) SYR SC ONE (14:15)
[2018-05-02] MEDS ORDERED: morphine INJ 4 MG/ML 1 ML (VIAL/SYRINGE) IV PRN (14:45)
[2018-05-02] MEDS ORDERED: ONDANSETRON 4 MG/2 ML (SDV) Z0FRAN IV PRN (15:00)
[2018-05-02] MEDS ORDERED: CATHETER FLUSH 10 ML SYR IV PRN (15:00)
[2018-05-02] MEDS ORDERED: ACETAMINOPHEN 500 MG TAB (TYLENOL) PO PRN (15:00)
[2018-05-02] MEDS: inSUlin ASPART (NovoLOG) 1 UNIT/0.01 ML (CHARGE PER UNIT) SC SCH ×2 (16:00→21:41)
[2018-05-02] MEDS ORDERED: MAGN400C PO ×2 (16:27)
[2018-05-02] MEDS ORDERED: EMPA25TA PO ×2 (16:27)
[2018-05-02] MEDS: ARTIFICAL TEARS 0.4 ML UNIT DOSE (REFRESH PLUS) OU SCH ×2 (18:05→21:41)
[2018-05-02] MEDS: NITROGLYCERIN 0.4 MG SL TABS BTL 25'S SL PRN ×2 (18:07→19:34)
[2018-05-02] MEDS: MIRTAZAPINE 15 MG (REMERON) TAB PO SCH (21:42)
[2018-05-02] MEDS: ATORVASTATIN 40 MG (LIPITOR) TABLET PO SCH (21:42)
[2018-05-02] MEDS: GABAPENTIN 400 MG (NEURONTIN) CAP PO SCH (21:42)
[2018-05-02] MEDS: BACLOFEN 10 MG (LIORESAL) TAB PO SCH (21:42)
[2018-05-02] MEDS: FINASTERIDE (PROSCAR) 5 MG TAB PO SCH (21:45)
[2018-05-02] MEDS: LIDODERM PATCH REMOVAL TP SCH (21:45)
[2018-05-02] MEDS: CATHETER FLUSH 10 ML SYR IV SCH (21:46)
[2018-05-03] VITALS (7 sets, daily range): BP systolic 97–165; BP diastolic 53–72
[2018-05-03] MEDS: inSUlin ASPART (NovoLOG) 1 UNIT/0.01 ML (CHARGE PER UNIT) SC SCH ×4 (05:24→21:37)
[2018-05-03] MEDS: CATHETER FLUSH 10 ML SYR IV SCH ×3 (06:26→21:43)
[2018-05-03] MEDS: GABAPENTIN 400 MG (NEURONTIN) CAP PO SCH ×3 (06:26→21:45)
[2018-05-03] MEDS: PANTOPRAZOLE 20 MG TABLET (PROTONIX) PO SCH (06:26)
[2018-05-03 07:06] LABS: BASOPHILS % (AUTO) 0 % (0-10); EOSINOPHILS # (AUTO) 0.3 10^3/uL (0.0-0.3); EOSINOPHILS % (AUTO) 3 % (0-10); HEMATOCRIT 39 % (40-54); HEMOGLOBIN 12.9 G/DL (13.3-17.7); LYMPHOCYTES # (AUTO) 2.9 X 10^3 (1.0-4.0); LYMPHOCYTES % (AUTO) 27 % (12-44); MEAN CORPUSCULAR HEMOGLOBIN 30 PG (25-34); MEAN CORPUSCULAR HGB CONC 33 G/DL (32-36); MEAN CORPUSCULAR VOLUME 90 FL (80-99); MEAN PLATELET VOLUME 10.7 FL (7.4-10.4); MONOCYTES # (AUTO) 0.9 X 10^3 (0.0-1.0); MONOCYTES % (AUTO) 9 % (0-12); NEUTROPHILS # (AUTO) 6.7 X 10^3 (1.8-7.8); NEUTROPHILS % (AUTO) 62 % (42-75); PLATELET COUNT 166 10^3/uL (130-400); RED BLOOD COUNT 4.36 10^6/uL (4.35-5.85); RED CELL DISTRIBUTION WIDTH 14.9 % (10.0-14.5); WHITE BLOOD COUNT 10.8 10^3/uL (4.3-11.0)
[2018-05-03 07:27] LABS: BUN/CREATININE RATIO 18; CALCIUM 9.5 MG/DL (8.5-10.1); CARBON DIOXIDE 24 MMOL/L (21-32); CHLORIDE 104 MMOL/L (98-107); CREATININE SERUM 1.26 MG/DL (0.60-1.30); GFR ESTIMATED 57; GLUCOSE 194 MG/DL (70-105); SODIUM 141 MMOL/L (135-145)
[2018-05-03 07:29] LABS: CHOLESTEROL 140 MG/DL (< 200); HDL CHOLESTEROL 22 MG/DL (40-60); TRIGLYCERIDES 391 MG/DL (<150); VLDL CHOLESTEROL 78 MG/DL (5-40)
[2018-05-03] MEDS: ASPIRIN E.C. 81 MG (ECOTRIN) TAB PO SCH (08:25)
[2018-05-03] MEDS: ARTIFICAL TEARS 0.4 ML UNIT DOSE (REFRESH PLUS) OU SCH ×4 (08:25→21:38)
[2018-05-03] MEDS: BACLOFEN 10 MG (LIORESAL) TAB PO SCH ×3 (08:27→21:38)
[2018-05-03] MEDS: ALLOPURINOL 100 MG (ZYLOPRIM) TAB PO SCH (08:27)
[2018-05-03] MEDS: SERTRALINE 100 MG (ZOLOFT) TAB PO SCH (08:27)
[2018-05-03] MEDS: lisINopril 10 MG (PRINIVIL) TABLET PO SCH (08:27)
[2018-05-03] MEDS: LIDOCAINE (LIDODERM) 5% PATCH TOP SCH (08:27)
--- NOTE | 2018-05-03 08:47 | Consultation-Cardiology ---
HPI-Cardiology Cardiology Consultation Date of Consultation 05/03/18 Date of Admission Time Seen by Provider: 08:42 Indication: Chest pain HPI 67 years old gentleman with history of hypertension, history of ventricular bigeminy, temporal lobectomy, has been in his usual state of health until 2 days ago when he started having recurrent episode of chest pain, described it as pressure like discomfort in the retrosternal area associated with palpitation and feeling skipped heartbeat. Patient had reproducible chest pain on the left side, came into the emergency room and reported some improvement of the pain with the sublingual nitroglycerin. No palpitation. No syncope or near syncopal episode. No nausea or vomiting, no fever or chills Home Medications & Allergies Allergies: Coded Allergies: NKANo Known Allergies (Verified Allergy, Unknown, 07/08/06) Home Medication List Reviewed: Yes IYM-Apastd-Aqozto Hx Patient Social History Marital Status: Employed/Student: retired Alcohol Use: Denies Use Recreational Drug Use: No Smoking Status: Never a Smoker Recent Foreign Travel: No Recent Infectious Disease Expo: No Recent Hopitalizations: Yes (JANUARY 30- R/T LEGS / LEFT SIDED WEAKNESS) Physical Abuse Screen: No Sexual Abuse: No Past Medical History Past medical history as discussed below Family Medical History Family History: Alzheimer's disease 19 MOTHER FH: depression 19 MOTHER Constitutional: see HPI, malaise, weakness EENTM: see HPI, no symptoms reported Respiratory: see HPI; No cough; dyspnea on exertion; No hemoptysis, No orthopnea, No phlegm, No short of breath, No stridor, No wheezing, No other Cardiovascular: see HPI, chest pain; No edema, No Hx of Intervention; palpitations; No syncope, No vascular heart diseas, No other Gastrointestinal: no symptoms reported, see HPI Genitourinary: no symptoms reported, see HPI Musculoskeletal: see HPI, back pain, muscle weakness Skin: no symptoms reported, see HPI Psychiatric/Neurological: See HPI, Anxiety Reviewed Test Results Reviewed Test Results Lab Laboratory Tests Test 05/02/18 11:20 05/02/18 11:41 05/02/18 15:54 05/02/18 20:05 Range/Units White Blood Count 13.9 H 4.3-11.0 10^3/uL Red Blood Count 4.38 4.35-5.85 10^6/uL Hemoglobin 13.4 13.3-17.7 G/DL Hematocrit 38 L 40-54 % Mean Corpuscular Volume 87 80-99 FL Mean Corpuscular Hemoglobin 31 25-34 PG Mean Corpuscular Hemoglobin Concent 35 32-36 G/DL Red Cell Distribution Width 14.7 H 10.0-14.5 % Platelet Count 174 130-400 10^3/uL Mean Platelet Volume 10.4 7.4-10.4 FL Neutrophils (%) (Auto) 65 42-75 % Lymphocytes (%) (Auto) 24 12-44 % Monocytes (%) (Auto) 9 0-12 % Eosinophils (%) (Auto) 2 0-10 % Basophils (%) (Auto) 0 0-10 % Neutrophils # (Auto) 9.0 H 1.8-7.8 X 10^3 Lymphocytes # (Auto) 3.4 1.0-4.0 X 10^3 Monocytes # (Auto) 1.2 H 0.0-1.0 X 10^3 Eosinophils # (Auto) 0.3 0.0-0.3 10^3/uL Basophils # (Auto) 0.0 0.0-0.1 10^3/uL Prothrombin Time 13.8 12.2-14.7 SEC INR Comment 1.1 0.8-1.4 Activated Partial Thromboplast Time 29 24-35 SEC D-Dimer 0.48 0.00-0.49 UG/ML Sodium Level 136 135-145 MMOL/L Potassium Level 4.9 3.6-5.0 MMOL/L Chloride Level 102 98-107 MMOL/L Carbon Dioxide Level 22 21-32 MMOL/L Anion Gap 12 5-14 MMOL/L Blood Urea Nitrogen 23 H 7-18 MG/DL Creatinine 1.35 H 0.60-1.30 MG/DL Estimat Glomerular Filtration Rate 53 BUN/Creatinine Ratio 17 Glucose Level 344 H 70-105 MG/DL Calcium Level 9.8 8.5-10.1 MG/DL Magnesium Level 2.4 1.8-2.4 MG/DL Total Bilirubin 0.4 0.1-1.0 MG/DL Aspartate Amino Transf (AST/SGOT) 27 5-34 U/L Alanine Aminotransferase (ALT/SGPT) 34 0-55 U/L Alkaline Phosphatase 207 H 40-136 U/L Myoglobin 48.6 10.0-92.0 NG/ML Troponin I < 0.30 < 0.30 <0.30 NG/ML B-Type Natriuretic Peptide 21.8 <100.0 PG/ML Total Protein 7.9 6.4-8.2 GM/DL Albumin 3.8 3.2-4.5 GM/DL Lipase 75 8-78 U/L Glucometer 312 H 222 H 70-110 MG/DL Test 05/02/18 21:27 05/03/18 05:22 Range/Units Glucometer 246 H 203 H 70-110 MG/DL White Blood Count 10.8 4.3-11.0 10^3/uL Red Blood Count 4.36 4.35-5.85 10^6/uL Hemoglobin 12.9 L 13.3-17.7 G/DL Hematocrit 39 L 40-54 % Mean Corpuscular Volume 90 80-99 FL Mean Corpuscular Hemoglobin 30 25-34 PG Mean Corpuscular Hemoglobin Concent 33 32-36 G/DL Red Cell Distribution Width 14.9 H 10.0-14.5 % Platelet Count 166 130-400 10^3/uL Mean Platelet Volume 10.7 H 7.4-10.4 FL Neutrophils (%) (Auto) 62 42-75 % Lymphocytes (%) (Auto) 27 12-44 % Monocytes (%) (Auto) 9 0-12 % Eosinophils (%) (Auto) 3 0-10 % Basophils (%) (Auto) 0 0-10 % Neutrophils # (Auto) 6.7 1.8-7.8 X 10^3 Lymphocytes # (Auto) 2.9 1.0-4.0 X 10^3 Monocytes # (Auto) 0.9 0.0-1.0 X 10^3 Eosinophils # (Auto) 0.3 0.0-0.3 10^3/uL Basophils # (Auto) 0.0 0.0-0.1 10^3/uL Sodium Level 141 135-145 MMOL/L Potassium Level 4.0 3.6-5.0 MMOL/L Chloride Level 104 98-107 MMOL/L Carbon Dioxide Level 24 21-32 MMOL/L Anion Gap 13 5-14 MMOL/L Blood Urea Nitrogen 23 H 7-18 MG/DL Creatinine 1.26 0.60-1.30 MG/DL Estimat Glomerular Filtration Rate 57 BUN/Creatinine Ratio 18 Glucose Level 194 H 70-105 MG/DL Calcium Level 9.5 8.5-10.1 MG/DL Troponin I < 0.30 <0.30 NG/ML Triglycerides Level 391 H <150 MG/DL Cholesterol Level 140 < 200 MG/DL LDL Cholesterol Direct 58 1-129 MG/DL VLDL Cholesterol 78 H 5-40 MG/DL HDL Cholesterol 22 L 40-60 MG/DL Physical Exam Vital Signs Vital Signs - First Documented 05/02/18 11:14 Temp 98.1 Pulse 101 Resp 18 B/P (MAP) 105/79 (88) Pulse Ox 94 O2 Delivery Nasal Cannula O2 Flow Rate 2.00 Capillary Refill : Less Than 3 Seconds General Appearance: No Apparent Distress, WD/WN Eyes: Bilateral Eye Normal Inspection, Bilateral Eye PERRL, Bilateral Eye EOMI HEENT: PERRL/EOMI, TMs Normal, Normal ENT Inspection, Pharynx Normal Neck: Full Range of Motion, Normal Inspection, Non Tender, Supple, Carotid Bruit Respiratory: Chest Non Tender, Lungs Clear, Normal Breath Sounds, No Accessory Muscle Use, No Respiratory Distress Cardiovascular: Regular Rate, Rhythm, No Edema, No Gallop, No JVD, No Murmur, Normal Peripheral Pulses Gastrointestinal: Normal Bowel Sounds, No Organomegaly, No Pulsatile Mass, Non Tender, Soft Back: Normal Inspection, No CVA Tenderness, No Vertebral Tenderness Extremity: Normal Capillary Refill, Normal Inspection, Normal Range of Motion, Non Tender, No Calf Tenderness, No Pedal Edema Neurologic/Psychiatric: Alert, Oriented x3, No Motor/Sensory Deficits, Normal Mood/Affect Skin: Normal Color, Warm/Dry Lymphatic: No Adenopathy A/P-Cardiology Admission Diagnosis Chest pain nonspecific etiology Palpitation Temporal lobectomy Hypertension Hyperlipidemia Assessment/Plan Chest pain nonspecific etiology, atypical in presentation, had workup done in the past, I will try to obtain copy of his stress test and echo reports from . Planning to evaluate stress test in the morning, patient is reporting improvement of the chest pain with sublingual nitroglycerin in addition he has reproducible left-sided chest pain by palpating his chest. Palpitation, frequent ventricular premature contractions, had few episode of ventricular bigeminy, reported in the past heart rate in the 30s and 40s, had a Holter monitor done at . Will obtain a copy of the results. History of temporal lobectomy and craniotomy done in 2010 secondary to seizure disorder. Followed at . Left sided weakness and facial droop, occurred in January 2018, hospitalized at and workup did not show a stroke, diagnosed with chronic mastoiditis, received physical therapy. Had extensive workup, I'll try to obtain copy of his record. Hypertension, controlled, on the last visit I stopped his atenolol which was about 3 days ago, patient currently on atenolol 100 mg and I will continue monitor Mild coronary artery disease, had a cardiac catheterization done in 2010 reported as normal coronaries and normal LV function,Continue to monitor. Hyperlipidemia, maintained on statin, monitor lipids Diabetes mellitus, followed and managed by primary care physician Obstructive sleep apnea, maintained on Cipro Pap Epilepsy, history of craniotomy and temporal lobectomy in 2010 Anxiety/depression, chronic migraine Benign prostatic hypertrophy Clinical Quality Measures AMI/AHF: ASA po Prior to arrival: No DVT/VTE Risk/Contraindication: Risk Factor Score Per Nursin RFS Level Per Nursing on Admit: 4+=Very High JOHN SUGGS MD May 03, 2018 08:47
[2018-05-03] MEDS ORDERED: ATENOLOL 50 MG (TENORMIN) TAB PO SCH (09:00)
--- NOTE | 2018-05-03 12:27 | History & Physical-Hospitalist ---
History of Present Illness HPI/Chief Complaint Pt is 67yoCM with a PMH of frequent PVCs, DM, depression, HTN, АНДРЕЙ on CPAP, seizure disorder s/p VNS who presented to the ER with CC of chest pain that started Friday evening. He states he was sitting at rest when his symptoms started. It was left-central in location and he described it as a squeezing sensation. He told his daughter that it was radiating down his left arm as well. It was associated with SOB as well. He was also found to have a low pulse so he was brought to the ER for evaluation. He had a negative troponin but case was discussed with his weigh and charge worker Dr. Ayala and decision was made to admit for ACS rule out. He states his chest pain continued on and off overnight and he did get Nitro that improved it. He has also had chest pain and not told anyone and the pain resolves on it's own in about 5 minutes. He denies any current chest pain. Source: patient, family Exam Limitations: no limitations Date Seen 05/03/18 Time Seen by Provider: 12:15 Attending Physician Brianne Farias MD PCP Safia Mancia MD Referring Physician Date of Admission May 02, 2018 at 13:15 Home Medications & Allergies Home Medications Reviewed patient Home Medication Reconciliation performed by pharmacy medication reconciliations video game repair technician and/or nursing. Patients Allergies have been reviewed. Allergies Allergies Coded Allergies NKANo Known Allergies (Verified Allergy, Unknown, 07/08/06) Past Rgotgyx-Kpkqqu-Frlhfv Hx Past Med/Social Hx: Reviewed Nursing Past Med/Soc Hx, Reviewed and Corrections made Patient Social History Employed/Student: retired Alcohol Use: Denies Use Recreational Drug Use: No Smoking Status: Never a Smoker Physical Abuse Screen: No Sexual Abuse: No Recent Foreign Travel: No Contact w/other who traveled: No Recent Hopitalizations: Yes (JANUARY 30- R/T LEGS / LEFT SIDED WEAKNESS) Recent Infectious Disease Expo: No Seasonal Allergies Seasonal Allergies: No Past Medical History Surgeries: Neurological (temporal lobectomy with SSI necessitating craniotomy, VNS stimulator), Orthopedic (ankle and carpal tunnel) Currently Using CPAP: Yes Cardiac: Heart Attack (reports history of "mini heart attack" ), Hypertension, Irregular Heartbeat Reproductive: No Genitourinary: Prostate Problems Musculoskeletal: Arthritis Ba[place]rup's disease Endocrine: Diabetes, Non-Insulin dep HEENT: Chronic Ear Infection Loss of Vision: Denies Hearing Impairment: Denies Cancer: Skin Psychosocial: Suicide Attempts, Depression History of Blood Disorders: No Family History Reviewed Nursing Family Hx Alzheimer's disease 19 MOTHER FH: depression 19 MOTHER Review of Systems Constitutional: No chills, No fever; weakness (left sided since January) EENTM: blurred vision (chronic- macular hole) Respiratory: No cough; short of breath Cardiovascular: chest pain, palpitations; No syncope Gastrointestinal: No abdominal pain, No constipation, No diarrhea, No nausea, No vomiting Genitourinary: No dysuria, No frequency, No hematuria Musculoskeletal: no symptoms reported Skin: no symptoms reported Psychiatric/Neurological: Depressed, Pre-Existing Deficit (left sided since January- admitted at [facility] for evaluation) Physical Exam Physical Exam Vital Signs Capillary Refill : Less Than 3 Seconds General Appearance: No Apparent Distress, WD/WN Neck: Normal Inspection, Supple; No JVD, No Thyromegaly Respiratory: Lungs Clear, No Respiratory Distress Cardiovascular: Regular Rate, Rhythm, No Murmur Gastrointestinal: Normal Bowel Sounds, Non Tender, Soft Extremity: Normal Capillary Refill, No Calf Tenderness, No Pedal Edema Neurologic/Psychiatric: Alert, Oriented x3, Normal Mood/Affect Skin: Normal Color, Warm/Dry Results Results/Procedures Labs Patient resulted labs reviewed. Imaging: Reviewed Imaging Report Assessment/Plan Admission Diagnosis Chest Pain Admission Status: Observation Diagnosis/Problems Diagnosis/Problems (1) Chest pain Status: Acute Assessment & Plan: I reviewed 105 pages of notes from [facility] stay in January Unfortunately only every other page was available in so some details are likely missing Had intermittent chest pain due that stay and underwent extensive testing Underwent echo and stress testing in January 2018 at [facility] Regadenoson MPI read at "probably normal with no evidence of significant myocardial ischemia" per [facility] note Echo showed EF-50-55%, mild concentric LVH, no pericardial effusion, and mild aortic insufficiency Discussed with Dr Ayala about this and will leave these records in the chart Defer repeat stress testing to Dr Ayala Troponin negative x3, monitor on telemetry Qualifiers: Chest pain type: precordial pain Qualified Codes: R07.2 - Precordial pain (2) Non-insulin dependent type 2 diabetes mellitus Assessment & Plan: Continue SSI Hold home metformin (3) Macular hole Status: Chronic Assessment & Plan: Follows with ophthalmology at [facility] Qualifiers: Laterality: unspecified laterality Qualified Codes: H35.349 - Macular cyst , hole, or pseudohole, unspecified eye (4) Left hemiparesis Assessment & Plan: Since January Again reviewed [facility] records- MRI negative for acute stroke following that episode they believe due to mastoiditis Consult PT/OT (5) АНДРЕЙ on CPAP Assessment & Plan: CPAP at bedside Discussed with RT about use tonight (6) Prophylactic measure Assessment & Plan: Lovenox HH diet Saline Lock Clinical Quality Measures AMI/AHF: ASA po Prior to arrival: No DVT/VTE Risk/Contraindication: Risk Factor Score Per Nursin RFS Level Per Nursing on Admit: 4+=Very High BRIANNE FARIAS MD May 03, 2018 12:27
[2018-05-03] MEDS: NITROGLYCERIN 0.4 MG SL TABS BTL 25'S SL PRN (15:46)
[2018-05-03] MEDS: MIRTAZAPINE 15 MG (REMERON) TAB PO SCH (21:38)
[2018-05-03] MEDS: ATORVASTATIN 40 MG (LIPITOR) TABLET PO SCH (21:38)
[2018-05-03] MEDS: FINASTERIDE (PROSCAR) 5 MG TAB PO SCH (21:40)
[2018-05-03] MEDS: LIDODERM PATCH REMOVAL TP SCH (21:43)
[2018-05-04 05:00] VITALS: BP 111/56
[2018-05-04] MEDS: CATHETER FLUSH 10 ML SYR IV SCH (06:42)
[2018-05-04] MEDS: GABAPENTIN 400 MG (NEURONTIN) CAP PO SCH (06:51)
[2018-05-04] MEDS: PANTOPRAZOLE 20 MG TABLET (PROTONIX) PO SCH (06:51)
[2018-05-04] MEDS: inSUlin ASPART (NovoLOG) 1 UNIT/0.01 ML (CHARGE PER UNIT) SC SCH ×2 (06:51→11:07)
[2018-05-04 08:00] VITALS: BP 121/59
[2018-05-04] MEDS ORDERED: REGADENOSON 0.4 MG/5 ML SYR (LEXISCAN) IV ONE (08:46)
[2018-05-04] MEDS: ASPIRIN E.C. 81 MG (ECOTRIN) TAB PO SCH (10:01)
[2018-05-04] MEDS: BACLOFEN 10 MG (LIORESAL) TAB PO SCH (10:01)
[2018-05-04] MEDS: LIDOCAINE (LIDODERM) 5% PATCH TOP SCH (10:01)
[2018-05-04] MEDS: ALLOPURINOL 100 MG (ZYLOPRIM) TAB PO SCH (10:01)
[2018-05-04] MEDS: lisINopril 10 MG (PRINIVIL) TABLET PO SCH (10:01)
[2018-05-04] MEDS: SERTRALINE 100 MG (ZOLOFT) TAB PO SCH (10:02)
[2018-05-04] MEDS: ARTIFICAL TEARS 0.4 ML UNIT DOSE (REFRESH PLUS) OU SCH (10:02)
[2018-05-04] MEDS ORDERED: ATOR20TA49 PO ×2 (10:07)
[2018-05-04] MEDS ORDERED: TR1C15 TP ×2 (10:07)
[2018-05-04] MEDS ORDERED: NITR0.4T39 SL ×2 (10:07)
[2018-05-04] MEDS ORDERED: CARB1DRO OU ×4 (10:07→10:10)
[2018-05-04] MEDS ORDERED: SENN-140 PO ×2 (10:07)
[2018-05-04] MEDS ORDERED: ACET325T38 PO ×2 (10:07)
[2018-05-04] MEDS ORDERED: LISI-556 PO ×2 (10:07)
[2018-05-04] MEDS ORDERED: OMEP10CA4 PO ×2 (10:07)
[2018-05-04] MEDS ORDERED: HYDR-3812 PO ×2 (10:07)
--- NOTE | 2018-05-04 10:33 | Cardiology Progress Note ---
Subjective Date Seen by Provider: May 04, 2018 Time Seen by Provider: 10:32 Subjective/Events-last exam patient is feeling better, still having mild reproducible chest pain. No palpitation Review of Systems General: No Chills, No Night Sweats, No Fatigue, No Malaise, No Appetite, No Other HEENT: No Head Aches, No Visual Changes, No Eye Pain, No Ear Pain, No Dysphasia , No Sinus Congestion, No Post Nasal Drip, No Sore Throat, No Other Pulmonary: No Dyspnea, No Cough, No Pleuritic Chest Pain, No Other Cardiovascular: Chest Pain; No: Palpitations, Orthopnea, Paroxysmal Noc. Dyspnea, Edema, Lt Headedness, Other Objective-Cardiology Exam Last Set of Vital Signs Vital Signs 05/04/18 05/04/18 08:00 10:00 Temp 97.2 Pulse 63 Resp 22 B/P (MAP) 121/59 (79) Pulse Ox 95 O2 Delivery Room Air O2 Flow Rate 1.00 Capillary Refill : Less Than 3 Seconds I&O Intake and Output 05/04/18 00:00 Intake Total 1682 ml Output Total 1126 ml Balance 556 ml Intake Oral 1682 ml Output Urine Total 1126 ml # Bowel Movements 1 General: Alert, Oriented X3, Cooperative HEENT: Atraumatic, PERRLA Neck: Supple, No JVD, No Thyromegaly Lungs: Clear to Auscultation, Normal Air Movement Heart: Normal S1, Normal S2, No Murmurs, Other (PVCs) Abdomen: Normal Bowel Sounds, Soft, No Tenderness, No Hepatosplenomegaly, No Masses Extremities: No Clubbing, No Cyanosis, No Edema, Normal Pulses, No Tenderness/ Swelling Skin: No Rashes, No Breakdown, No Significant Lesion Neuro: Normal Tone Psych/Mental Status: Mood NL A/P-Cardiology Admission Diagnosis Chest pain nonspecific etiology Palpitation Temporal lobectomy Hypertension Hyperlipidemia Assessment/Plan Chest pain nonspecific etiology, atypical in presentation, had workup done in the past, I repeated stress test which showed no significant ischemia or infarction. Okay for discharge. Reproducible pain on the left side of his chest, costochondritis. Palpitation, frequent ventricular premature contractions, had few episode of ventricular bigeminy, reported in the past heart rate in the 30s and 40s, had a Holter monitor done at . continue to monitor as an outpatient. History of temporal lobectomy and craniotomy done in 2010 secondary to seizure disorder. Followed at . Left sided weakness and facial droop, occurred in January 2018, hospitalized at and workup did not show a stroke, diagnosed with chronic mastoiditis, received physical therapy. Had extensive workup, I'll try to obtain copy of his record. Hypertension, controlled, on the last visit I stopped his atenolol which was about 3 days ago, patient currently on atenolol 100 mg and I will continue monitor Mild coronary artery disease, had a cardiac catheterization done in 2010 reported as normal coronaries and normal LV function,Continue to monitor. Hyperlipidemia, maintained on statin, monitor lipids Diabetes mellitus, followed and managed by primary care physician Obstructive sleep apnea, maintained on Cipro Pap Epilepsy, history of craniotomy and temporal lobectomy in 2010 Anxiety/depression, chronic migraine Benign prostatic hypertrophy Clinical Quality Measures AMI/AHF: ASA po Prior to arrival: No DVT/VTE Risk/Contraindication: Risk Factor Score Per Nursin RFS Level Per Nursing on Admit: 4+=Very High JOHN SUGGS MD May 04, 2018 10:33
--- NOTE | 2018-05-04 11:06 | Progress Note-Hospitalist ---
Progress Note Progress Notes/Assess & Plan Date Seen 05/04/18 Time Seen by Provider: 11:04 Assessment & Plan The patient is a 67-year-old white male previously known to me. He has been in a rehabilitation facility. He developed left-sided chest pain and was admitted for further evaluation. Dr. Ayala of the cardiology service has completed his workup. He states that his stress test was negative and that he is ready for discharge. The patient has concerns over a slow pulse rate at times in the past. He has a log which shows a rate in the high 30s. I have not been able to find a bradycardia inducing medication in his med list. I also find no history of tachycardia. Physical exam: He is alert and oriented. Lungs are clear to auscultation. CV is regular. Abdomen is slightly obese. Somebody show no edema. Impression: Atypical chest pain. 2.hypertension. 3.diabetes type II. Plan: Discharge. See discharge sequence for meds and TALYA JENKINS MD May 04, 2018 11:06
--- NOTE | 2018-05-04 11:09 | Discharge Instructions ---
Discharge Instructions Patient Instructions Patient Instructions: Medications as per listing and discharge sequence. Diabetic diet as before. Physical activity as before. Return to The [facility] For: Change in status. Activity & Diet Discharge Diet: ADA Diet Activity as Tolerated: Yes TALYA JENKINS MD May 04, 2018 11:09
--- NOTE | 2018-05-04 11:10 | Short Stay Summary-Hospitalist ---
Short Stay Diagnosis D/C Date 05/04/18 Atypical chest pain. 2.diabetes mellitus type II. 3.hypertension. Clinical Quality Measures AMI/AHF: ASA po Prior to arrival: No DVT/VTE Risk/Contraindication: Risk Factor Score Per Nursin RFS Level Per Nursing on Admit: 4+=Very High TALYA JENKINS MD May 04, 2018 11:10
--- NOTE | 2018-05-04 11:21 | Physical Therapy Evaluation ---
PT Evaluation-General Medical Diagnosis Admission Date May 02, 2018 at 13:15 Medical Diagnosis: CP/r/o ACS Onset Date: May 02, 2018 Therapy Diagnosis Therapy Diagnosis: generalized weakness/debility Height/Weight Height (Feet): 6 Height (Inches): 1.00 Weight (Pounds): 281 Weight (Ounces): 5.0 Precautions Precautions/Isolations: Fall Prevention, Standard Precautions Weight Bear Status Right Lower Extremity: Right Weight Bearing/Tolerated Left Lower Extremity: Left Weight Bearing/Tolerated Referral Physician: Jarrett Reason for Referral: Evaluation/Treatment Medical History Pertinent Medical History: Atrial Fib, Arthritis, CAD, DM, GERD, HTN, MO Current History EMS secondary to CP Reviewed History: Yes Social History Home: Correction Prior/Core FIM Prior Level of Function Functional [place] Measure 0=Not Assessed/NA 4=Minimal Assistance 1=Total Assistance 5=Supervision or Setup 2=Maximal Assistance 6=Modified [place] 3=Moderate Assistance 7=Complete [place] Bed Mobility: 2 Transfers (B,C,W/C) (FIM): 1 Gait: 1 PT Evaluation-Current Subjective Patient agrees to PT. Pain Numeric Pain Scale: 0-No Pain Location: No Pain Reported Objective Patient Orientation: Normal For Age Problem Solving: Fair ROM/Strength ROM Lower Extremities bilateral LE WNL Strength Lower Extremities bilateral LE 3-/5 grossly Integumentary/Posture Integumentary refer to nursing notes Bowel Incontinence: No Bladder Incontinence: No Posture WFL Neuromuscular (Tone, Coordination, Reflexes) severe ataxia with all movement Sensory Vision: Functional Hearing: Functional Sensation Right Lower Extremit: Impaired Sensation Left Lower Extremity: Impaired Transfers Functional [place] Measure 0=Not Assessed/NA 4=Minimal Assistance 1=Total Assistance 5=Supervision or Setup 2=Maximal Assistance 6=Modified [place] 3=Moderate Assistance 7=Complete [place] Transfers (B, C, W/C) (FIM): 2 Scootin Rollin Supine to/from Sit: 5 Sit to/from Stand: 2 did perform scooting toward the head of the bed with ataxic movement Gait Mode of Locomotion: Both Anticipated Mode of Locomotion: Both Balance Sitting Static: Poor Sitting Dynamic: Poor Standing Static: Poor Standing Dynamic: Poor Assessment/Needs 67 y.o. male, is currently at [facility] with gross motor skills per patient report and will dismiss to [place] on this date. Rehab Potential: Guarded PT Plan Treatment/Plan Treatment Plan: Discontinue PT Treatment Plan: Other Treatment Duration: May 04, 2018 Frequency: 1 time per week Estimated Hrs Per Day: .5 hour per day Patient and/or Family Agrees t: Yes Time/GCodes Time In: 1041 Time Out: 1100 Total Billed Treatment Time: 19 Total Billed Treatment 1 visit EVHighC 19 min G Codes Necessary: Yes PT/OT Therapy GCodes Therapy Functional Limitation: Physical Therapy Test(s)/Tool used to determine: FIM Functional Limitation-Current Charge Code: MOBCUR Modifier: CM Functional Limitation-Goal Charge Code: MOBGOAL Modifier: CK Functional Limitation-D/C Charge Codes: MOBDC Modifier: CM ARMIDA CARDOSO PT May 04, 2018 11:21
[2018-05-04 12:05] VITALS: BP 121/59
--- NOTE | 2018-05-04 14:26 | STRESS TEST ---
DATE OF SERVICE: 05/04/2018 LEXISCAN MYOVIEW STRESS TEST REPORT Baseline heart rate is 64, baseline blood pressure 115/66. Baseline EKG is sinus rhythm with frequent PVCs and ventricular bigeminy. In summary, the patient was injected with 10.68 mCi of technetium-99 Myoview and the resting images were obtained. Then, the patient received 0.4 mg of Lexiscan followed by 33.0 mCi of technetium-99 Myoview. Throughout the test, there were no EKG changes. The resting and stress images were reviewed and compared in the short axis, horizontal long axis, and vertical long axis views. Review of the images showed diaphragmatic attenuation with typical male pattern. No significant ischemia or infarction was seen. SSS is 0. TID value 1.0. On the gated images, the left ventricle appeared to be in normal size with normal contractility. Calculated ejection fraction 56%. CONCLUSION: 1. The patient tolerated Lexiscan well. 2. Diaphragmatic attenuation with typical male pattern with no significant ischemia or infarction on SPECT images. 3. Normal left ventricular size with normal contractility. Calculated ejection fraction 56%. Job ID: [id number] DocumentID: [id number] Dictated Date: 05/04/2018 11:36:07 Sales Support Representative Date: 05/04/2018 14:25:20 Dictated By: JOHN SUGGS MD
== END 2018-05-04 10:34 ==
LOC: EDUNIT# 11:14 → ER 11:17 → UNDOADMOB 13:15 → ICU 13:15 → 4TH 13:32 → ICU 14:35 → 4TH 14:36 → UNDODISOB 05-04 12:05
PROVIDERS: ADMIT Family Medicine; ATTEND Family Medicine
DX: R07.89 Other chest pain (principal); E11.9 Type 2 diabetes mellitus without complications; I10 Essential (primary) hypertension; M94.0 Chondrocostal junction syndrome [Tietze]; R00.2 Palpitations; I25.10 Atherosclerotic heart disease of native coronary artery without angina pectoris; E78.5 Hyperlipidemia, unspecified; G47.33 Obstructive sleep apnea (adult) (pediatric); G40.909 Epilepsy, unspecified, not intractable, without status epilepticus; F41.9 Anxiety disorder, unspecified; F32.9 Major depressive disorder, single episode, unspecified; N40.0 Benign prostatic hyperplasia without lower urinary tract symptoms; H35.349 Macular cyst, hole, or pseudohole, unspecified eye; G81.94 Hemiplegia, unspecified affecting left nondominant side; G43.909 Migraine, unspecified, not intractable, without status migrainosus
CPT/HCPCS: 36415; 71045; 78452; 80048; 80053; 80061; 82962; 83690; 83735; 83874; 83880; 84484; 85025; 85379; 85610; 85730; 93005; 93017; 93041; 96360; 96372

== ENCOUNTER → 2018-05-04 | Outpatient (CLI) | payer MEDICARE, MEDICAID ==
[~2018-05-04] MED LIST changes: +ACET325T38 PO; +ATOR20TA49 PO; +EMPA25TA PO; +LISI-556 PO; +MAGN400C PO; +NITR0.4T39 SL; +OMEP10CA4 PO; +SENN-140 PO; +TR1C15 TP
== END ==
LOC: CARD 12:15
PROVIDERS: ATTEND Internal Medicine Cardiovascular Disease
DX: I25.10 Atherosclerotic heart disease of native coronary artery without angina pectoris (principal); R00.1 Bradycardia, unspecified; I49.9 Cardiac arrhythmia, unspecified; E11.40 Type 2 diabetes mellitus with diabetic neuropathy, unspecified; G40.909 Epilepsy, unspecified, not intractable, without status epilepticus; G47.33 Obstructive sleep apnea (adult) (pediatric); E66.9 Obesity, unspecified
CPT/HCPCS: 93225; 93226

== ENCOUNTER 2018-11-02 05:37 | Outpatient (CLI) | payer MEDICARE, MEDICAID ==
[~2018-11-02] VITALS: Ht 185.4 cm; Wt 127.5 kg
[~2018-11-02 05:37] MED LIST changes: -AMLO2.5T PO; +AMLO2.5T3 PO; +METF-397 PO; -METF500T5 PO; -SENN-140 PO; +SENN-141 PO
[2018-11-02] MEDS ORDERED: MIRT15TA6 PO (11:27)
[2018-11-02] MEDS ORDERED: LISI10TA2 PO (11:27)
[2018-11-02] MEDS ORDERED: MELO7.5T46 PO (11:27)
[2018-11-02] MEDS ORDERED: EMPA1TAB3 PO (11:27)
[2018-11-02] MEDS ORDERED: OMEP20CA12 PO (11:27)
[2018-11-02] MEDS ORDERED: INSU100I34 SQ (11:27)
[2018-11-04] MEDS ORDERED: ACHD5005 PO (11:06)
== END 2018-11-02 11:39 | disposition home or self-care (01) ==
LOC: PREOP 05:37
PROVIDERS: ATTEND Surgery
DX: Z01.818 Encounter for other preprocedural examination (principal)

== ENCOUNTER 2018-11-04 07:29 | Day surgery (SDC) | payer MEDICARE, MEDICAID ==
[~2018-11-04] VITALS: Ht 185.4 cm; Wt 113.4 kg
[~2018-11-04 07:29] MED LIST changes: +EMPA1TAB3 PO; +INSU100I34 SQ; +MIRT15TA6 PO
--- OUTSIDE RECORDS SUMMARY | 2018-11-04 07:33 | XMS REPORT | Clinical Summary ---
Author Author [facility] Organization [facility] Address Unknown Phone Unavailable Care Team Providers Care Infantry Unit Leader Name Role Phone PCP Unavailable Allergies Not on File Current Medications Not on file Active Problems Not on file Social History Tobacco Use Types Packs/Day Years Used Date Never Assessed Sex Assigned at Date Recorded Not on file Last Filed Vital Signs Vital Sign Reading Time Taken Blood Pressure 112/72 06/02/2013 12:23 PM CDT Pulse - - Temperature - - Respiratory Rate - - Oxygen Saturation - - Inhaled Oxygen - - Concentration Weight 127 kg (280 lb) 06/02/2013 12:23 PM CDT Height 185.4 cm (6' 1") 06/02/2013 12:23 PM CDT Body Mass Index 36.94 06/02/2013 12:23 PM CDT Plan of Treatment Not on file Results Not on filefrom Last 3 Months
--- OUTSIDE RECORDS SUMMARY | 2018-11-04 07:34 | XMS REPORT | Encounter Summary ---
Author Author [facility] Organization [facility] Address Unknown Phone Unavailable Care Team Providers Care Tobacco Sample Puller Name Role Phone Michael Caro MD Unavailable Tia España MD Unavailable Meera Ruano MD Unavailable Sonia Cano MD Unavailable Telma Malcolm PRIMARY PRODUCTS INSPECTORS-BC Unavailable Vincent Quintero MD Unavailable Unavailable Con Rosas MD Unavailable Jesus Tai MD Unavailable Unavailable Murray Russo MD Unavailable Codi Aguirre Unavailable Unavailable Mckay Frias MD Unavailable Siddharth Cortes MD Unavailable Leatha Rajan RN Unavailable Unavailable Nuria Daniel RN Unavailable Unavailable Kati Guerrero PRIMARY PRODUCTS INSPECTORS Unavailable Dorys Colunga RN Unavailable Jasmyn Carrasco Unavailable Unavailable Bhavana Haddad PRIMARY PRODUCTS INSPECTORS-REVOLVING FIELD ASSEMBLER Unavailable Liza Oglesby MA,CCC-FILM LIBRARY CLERK Unavailable Unavailable Edilberto Matute MD Unavailable Mckay Walters MD Unavailable Marianne Rosario MA,CCC-FILM LIBRARY CLERK Unavailable Unavailable Clint Ayoub RN Unavailable Unavailable Geetha Diez MA,CCC-FILM LIBRARY CLERK Unavailable Unavailable Mckay Nathan PA-C Unavailable Evert Jefferson MD Unavailable Serenity Carter MD Unavailable Piedad Oliver RN Unavailable Unavailable Vivi Nelson MD Unavailable Morena Scanlon MD Unavailable Clarence Brink MD Unavailable Jess Savage Unavailable Liza Sheth Unavailable Safia Mancia MD PCP Reason for Visit * Reason Comments Ear Evaluation Encounter Details Date Type Department Care Team Description 08/31/2018 Office Visit [facility] Mckay Frias MD Chronic nonsuppurative Physicians - ENT [address] otitis media of right ear [facility] [address] (Primary Dx); [address] [place] [address] Chronic nonsuppurative [address] [phone] otitis media, [place] [address] Social History Tobacco Use Types Packs/Day Years Used Date Never Smoker Smokeless Tobacco: Never Used Alcohol Use Drinks/Week oz/Week Comments No Sex Assigned at Date Recorded Not on file as of this encounter Last Filed Vital Signs Vital Sign Reading Time Taken Blood Pressure 131/73 08/31/2018 11:14 AM CDT Pulse 71 08/31/2018 11:14 AM CDT Temperature - - Respiratory Rate - - Oxygen Saturation - - Inhaled Oxygen - - Concentration Weight 124.7 kg (275 lb) 08/31/2018 11:14 AM CDT Height 185.4 cm (6' 1") 08/31/2018 11:14 AM CDT Body Mass Index 36.28 08/31/2018 11:14 AM CDT in this encounter Functional Status [...] Progress Notes * Mckay Frias MD - 08/31/2018 11:20 AM CDT Formatting of this note may be different from the original. Date of Service: 08/31/2018 Subjective: Fidel Henriquez is a 68 y.o. male. History of Present Illness Fidel is ears feel blocked up on both sides. He has had some fullness on both sides. Chief Complaint Ear Evaluation Past Medical History: Diagnosis Date Acute myocardial infarction, unspecified site 1979 Arthritis Attempted suicide ([facility]) 2004 Overdose CAD (coronary artery disease) Chronic mastoiditis of left side Chronic otitis media ED (erectile dysfunction) Enlarged prostate Epilepsy ([facility]) Headache(784.0) Headaches Hypertension Infection bone flap Morbid obesity ([facility]) Neuropathy, lower extremity Bilateral Non-melanoma skin cancer АНДРЕЙ (obstructive sleep apnea) uses C-PAP Pruritus - disorder bilateral arms, shoulders. PVC (premature ventricular contraction) 02/01/2018 Seizure ([facility]) Type 2 diabetes mellitus with other specified complication ([facility]) 02/01/2018 Weakness of left side of body x3 years following seizures. Wound infection chronic Family History Problem Relation Age of Onset Other Mother family: History of heart condition, alzheimers,depression Cancer Other Heart Attack Other Depression Other Other Other No Known Allergies Past Surgical History: Procedure Laterality Date HX [...] History Social History Marital status: Spouse name: [facility] Number of children: N/A Years of education: N/A Occupational History Disabled Social History Main Topics Smoking status: Never Smoker Smokeless tobacco: Never Used Alcohol use No Drug use: No Sexual activity: Not Currently Partners: Female Other Topics Concern Service Yes Caffeine Concern No Sleep Concern No C-Pap for apnea Social History Narrative No narrative on file Review of Systems Constitutional: Negative. HENT: Positive [...] 20 mg by mouth twice daily. Vitals: 08/31/18 1114 BP: 131/73 Pulse: 71 Weight: 124.7 kg (275 lb) Height: 185.4 cm (73") Body mass index is 36.28 kg/m. Physical Exam Exam today reveals right cerumen impaction that I removed under microscopy with a 7 suction and a 5 suction. His eardrum on the right is retracted anterior superiorly as well as posteriorly with some granulation tissue posteriorly. I did powder the right side with antibiotic powder. The left cavity reveals a patent tube after debridement of the cavity of dry cerumen and debris using a 7 suction. Cavity appears nice and clean and dry. There is slight moisture around the tube which I powdered. Neat Appearance: Yes Oral Communication: Yes Clear Voice: Yes Neuro: Left: Right: CN VII 6 12/06 CN 3,4,5,6 nl nl CN 9,10,11,12 nl nl Hearing grossly intact Normal respiratory effort No abdominal tenderness Head/Face lesions? N Ext ear/nose lesions? N Spont Nyst N Gaze Nystagmus N Affect Abnormal N Edema/extremity changes? N EOM restriction? N Orientation Abn N Assessment and Plan: Fidel is ears feel blocked up on both sides. He has had some fullness on both sides. Exam today reveals right cerumen impaction that I removed under microscopy with a 7 suction and a 5 suction. His eardrum on the right is retracted anterior superiorly as well as posteriorly with some granulation tissue posteriorly. I did powder the right side with antibiotic powder. The left cavity reveals a patent tube after debridement of dry cerumen using a 7 suction. Cavity appears nice and clean and dry. There is slight moisture around the tube which I powdered. He has bilateral chronic otitis media in the left cavity. Despite cleaning, he did feel continued blockage on the left side. We'll have him use drops ( ofloxacin 10 drops BID) for 3-4 weeks. He was cleaned out today, I will have him return in 6-8 months or sooner if needed with audiogram. in this encounter Plan of Treatment Not on fileas of this encounter Visit Diagnoses Diagnosis Chronic nonsuppurative otitis media of right ear - Primary Chronic nonsuppurative otitis media, left
--- OUTSIDE RECORDS SUMMARY | 2018-11-04 07:34 | XMS REPORT | Encounter Summary ---
Author Author [facility] Organization [facility] Address Unknown Phone Unavailable Care Team Providers Care Liability Claims Manager Name Role Phone Michael Caro MD Unavailable Tia España MD Unavailable Meera Ruano MD Unavailable Sonia Cano MD Unavailable Telma Malcolm TIEING MACHINE OPERATOR-BC Unavailable Vincent Quintero MD Unavailable Unavailable Con Rosas MD Unavailable Jesus Tai MD Unavailable Unavailable Murray Russo MD Unavailable Codi Aguirre Unavailable Unavailable Mckay Frias MD Unavailable Siddharth Cortes MD Unavailable Leatha Rajan RN Unavailable Unavailable Nuria Daniel RN Unavailable Unavailable Kati Guerrero TIEING MACHINE OPERATOR Unavailable Dorys Colunga RN Unavailable Jasmyn Carrasco Unavailable Unavailable Bhavana Haddad TIEING MACHINE OPERATOR-PROCESSING TALC AND BORATE SUPERVISOR Unavailable Liza Oglesby MA,CCC-FRUIT PACKER FACE AND FILL Unavailable Unavailable Edilberto Matute MD Unavailable Mckay Walters MD Unavailable Marianne Rosario MA,CCC-FRUIT PACKER FACE AND FILL Unavailable Unavailable Clint Ayoub RN Unavailable Unavailable Geetha Diez MA,CCC-FRUIT PACKER FACE AND FILL Unavailable Unavailable Mckay Nathan PA-C Unavailable Evert Jefferson MD Unavailable Serenity Carter MD Unavailable Piedad Oliver RN Unavailable Unavailable Vivi Nelson MD Unavailable Morena Scanlon MD Unavailable Clarence Brink MD Unavailable Jess Savage Unavailable Liza Sheth Unavailable Safia Mancia MD PCP Reason for Visit * Reason Comments Medication Refill Encounter Details Date Type Department Care Team Description 09/23/2018 Refill Comprehensive Epilepsy Sonia Cano MD [place] [address] [facility] [address] [place] [address] [place] [address] [place] [address] [phone] Social History Tobacco Use Types Packs/Day Years [...]
--- OUTSIDE RECORDS SUMMARY | 2018-11-04 07:34 | XMS REPORT | Clinical Summary ---
Author Author [facility] Organization [facility] Address Unknown Phone Unavailable Care Team Providers Care Circular Shear Operator Name Role Phone Michael Caro MD Unavailable Tia España MD Unavailable Meera Ruano MD Unavailable Sonia Cano MD Unavailable Telma Malcolm CLINICAL TRIAL HEAD-BC Unavailable Vincent Quintero MD Unavailable Unavailable Con Rosas MD Unavailable Jesus Tai MD Unavailable Unavailable Murray Russo MD Unavailable Codi Aguirre Unavailable Unavailable Mckay Frias MD Unavailable Siddharth Cortes MD Unavailable Leatha Rajan RN Unavailable Unavailable Nuria Daniel RN Unavailable Unavailable Kati Guerrero CLINICAL TRIAL HEAD Unavailable Dorys Colunga RN Unavailable Jasmyn Carrasco Unavailable Unavailable Bhavana Haddad CLINICAL TRIAL HEAD-MOTEL MANAGER Unavailable Liza Oglesby MA,CCC-MEMORANDUM STATEMENT CLERK Unavailable Unavailable Edilberto Matute MD Unavailable Mckay Walters MD Unavailable Marianne Rosario MA,CCC-MEMORANDUM STATEMENT CLERK Unavailable Unavailable Clint Ayoub RN Unavailable Unavailable Geetha Diez MA,CCC-MEMORANDUM STATEMENT CLERK Unavailable Unavailable Mckay Nathan PA-C Unavailable [...] in the Health Information Management department at [phone] for further assistance in locating additional records.[facility] Allergies No Known Allergies Current [...] tabletIndications: every 4 hours as needed. 18 Pain carboxymethylcellulose Apply 1 drop to both eyes [...] 6 18 tablet days. Take with food. gabapentin (NEURONTIN) Take 1 tablet by mouth 90 tablet 3 04/02/20 Active 800 mg tablet every 8 hours. 18 ofloxacin (FLOXIN) 0.3 % 10 drops left ear twice a 10 mL 5 08/31/20 Active otic solution day for 3 weeks. 18 phenytoin SR (DILANTIN) Take three capsules by 270 capsule 2 09/24/20 Active 100 mg capsule mouth daily. 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 Overview: Post-occipital carlos hole electrode placement Groin pain, right lower quadrant 05/21/2011 Overview: S/p flakita Weakness 04/10/2011 Partial epilepsy with impairment of consciousness, intractable ([facility]) 2009 Overview: S/p left temporal lobectomy in [...] Encounters Date Type Specialty Care Team Description 09/23/2018 Refill Neurology Sonia Cano MD 08/31/2018 Office Visit Otolaryngology Mckay Frias MD Chronic nonsuppurative otitis media of right ear (Primary Dx); Chronic nonsuppurative otitis media, left from Last 3 Months Family History Medical [...] Pulse 71 08/31/2018 11:14 AM CDT Temperature 36.8 C (98.2 F) 04/02/2018 1:38 PM CDT Respiratory Rate 18 12/17/2017 2:47 PM STATISTICAL MACHINE MECHANIC Oxygen Saturation 97% 02/06/2018 8:00 AM STATISTICAL MACHINE MECHANIC Inhaled Oxygen - - Concentration Weight 124.7 kg (275 lb) 08/31/2018 11:14 AM CDT Height 185.4 cm (6' 1") 08/31/2018 11:14 AM CDT Body Mass Index 36.28 08/31/2018 11:14 AM CDT Plan of Treatment Health Maintenance Due Date Last Done Comments HEPATITIS C SCREENING 1950 PHYSICAL (COMPREHENSIVE) 1957 EXAM DILATED EYE EXAM 1968 DTAP/TDAP VACCINES (1 - 1968 Tdap) FOOT EXAM 1968 COLORECTAL CANCER 2000 SCREENING SHINGLES RECOMBINANT 2000 VACCINE (1 of 2) PNEUMONIA (PCV13/PPSV23) 2015 VACCINES (1 of 2 - PCV13) INFLUENZA VACCINE 07/01/2018 HBA1C 08/03/2018 01/31/2018 Results Not on filefrom Last 3 Months
[2018-11-04] MEDS ORDERED: BUP/EPI 0.5% 1:200,000 (SENSORCAINE) 30 ML VIAL ONE (07:55)
[2018-11-04] MEDS ORDERED: LIDOCAINE PF 2% 5 ML (XYLOCAINE) VIAL ONE (07:57)
[2018-11-04] MEDS ORDERED: ROCURONIUM 10 MG/ML 5 ML SYRINGE IV ONE (07:57)
[2018-11-04] MEDS ORDERED: proPOfol 200 MG/20 ML (DIPRIVAN) VIAL IV ONE ×2 (07:57→10:48)
[2018-11-04] MEDS ORDERED: SEVOFLURANE (ULTANE) 15 ML INHAL SOLN ONE ×6 (07:57→10:42)
[2018-11-04] MEDS ORDERED: LACTATED RINGERS 1,000 ML IV ONE (07:57)
[2018-11-04] MEDS ORDERED: MIDAZOLAM 2 MG/2 ML (VERSED) VIAL ONE (08:01)
[2018-11-04] MEDS ORDERED: fentaNYL INJECTION 100 MCG/2 ML AMP ONE ×2 (08:01→10:47)
[2018-11-04] MEDS: LACTATED RINGERS 1,000 ML IV PRN ×2 (08:08→09:47)
[2018-11-04] MEDS ORDERED: ceFAZolin 2 GM IV Premixed 50 ML IV ONE (08:15)
[2018-11-04] MEDS ORDERED: metroNIDAZOLE 500MG/100ML IVPB 100 ML IV ONE (08:15)
[2018-11-04 08:28] VITALS: BP 110/71
--- NOTE | 2018-11-04 08:58 | Progress Note-Pre Operative ---
Pre-Operative Progress Note H&P Reviewed The H&P was reviewed, patient examined and no changes noted. Date Seen by Provider: Nov 02, 2018 Time Seen by Provider: 16:20 Date H&P Reviewed: Nov 04, 2018 Time H&P Reviewed: 08:57 Pre-Operative Diagnosis: Gallstones PILAR LOZA MD Nov 04, 2018 08:57
--- NOTE | 2018-11-04 11:00 | Diagnostic Imaging Report ---
Indication: Fluoroscopy during intraoperative cholangiogram. Fluoroscopy was provided in the OR during intraoperative cholangiogram. 16 seconds of fluoroscopy was utilized. A single image was obtained showing contrast within nondilated intrahepatic and extrahepatic bile ducts. No filling defects are seen to suggest retained stone. There is contrast within the duodenum. Impression: Fluoroscopy for intraoperative cholangiogram. Dictated by: Dictated on workstation # [id number]
--- NOTE | 2018-11-04 11:05 | Operative Report ---
Operative Report Date of Procedure/Surgery Nov 04, 2018 Surgeon (s) PILAR LOZA MD Pulp Grinder And Blender (s): N/A Post-Operative Diagnosis Gallstones with chronic cholecystitis Normal cholangiogram Procedure Performed robotic-assisted cholecystectomy Intraoperative cholangiogram Description of Procedure Anesthesia Type: General Estimated blood loss (mL): minimal Specimen(s) collected/removed gallbladder Description of the Procedure Indication for the procedure: This gentleman presented with symptomatic gallstones and elevated liver enzymes, raising the concern for choledocholithiasis. He was offered cholecystectomy using minimally invasive technique with robotic assistance and intraoperative cholangiogram. Informed consent was obtained after reviewing the operative details and complications of wound infection, bile leak and cardiorespiratory dysfunction. Description of the procedure: He was placed supine on the operating table and general anesthesia induced. 2 g of Ancef and 500 mg of Flagyl were administered intravenously as prophylaxis against wound infection. Sequential compression devices were placed around his legs, to minimize the risk of venous thrombosis. Abdomen was prepared and draped in the usual sterile manner. A subumbilical incision was made and pneumoperitoneum established using a Veress needle. A 12 mm trocar was placed and anatomy visualized using the high definition laparoscope, associated with da Israel system. Omentum was adherent to the epigastric region along the midline and over the right lower quadrant, possibly due to previous appendectomy. Under direct view, I placed an 8 mm trocar over each side of the abdomen, followed by a 5 mm trocar over the left subcostal region. The patient was then turned into reverse Trendelenburg position, the right side tilted up. The robotic system was then docked in place. Omentum over the epigastric region was taken down by sharp dissection leading to the discovery of a chronically contracted and thickened gallbladder, surrounded by thick omental adhesions. These were taken down by hook cautery revealing the fundus of the gallbladder, which was retracted cephalad. Thickened tissue around the neck of the gallbladder was incised using cautery, delineating the cystic duct and the artery. Cholangiogram was obtained using a Taut catheter. It revealed normal anatomy with no filling defects within the common bile duct. The contrast flowed freely into the duodenum. The catheter was then removed and the cystic duct controlled using locking clips. Cystic artery was managed in a similar fashion. Cholecystectomy was then completed using the hook cautery. Gallbladder was then placed in an Endo Catch bag and removed via this subumbilical incision. The fascia over this incision had to be extended caudally, to allow removal of the large gallbladder with stones within it. The fascia was then closed using interrupted #1 Vicryl sutures. Skin was then closed using 4-0 Vicryl, in a subcuticular fashion. 0.5 percent Marcaine with epinephrine was infiltrated along the incisions, both preemptively and at the conclusion of the operation. He tolerated the procedure well, was extubated in the operating room and taken to the recovery room in a stable condition Findings of the Procedure See op report Allergies and Home Medications Allergies Coded Allergies: ANIYAANo Known Allergies (Verified Allergy, Unknown, 07/08/06) Home Medications Acetaminophen 325 Mg Tablet, 650 MG PO Q4H PRN for PAIN-MILD OR TEMPATURE, ( Reported) Allopurinol 100 Mg Tablet, 100 MG PO DAILY, (Reported) Atorvastatin Calcium 20 Mg Tablet, 20 MG PO HS, (Reported) Baclofen 10 Mg Tablet, 10 MG PO TID, (Reported) Carboxymethylcellulose Sodium 1 Each Droperette, 1 DROP OU UD PRN for DRY EYES, (Reported) Empagliflozin/Linagliptin 1 Each Tablet, 1 EACH PO DAILY, (Reported) Finasteride 5 Mg Tablet, 5 MG PO DAILY, (Reported) Gabapentin 800 Mg Tablet, 800 MG PO TID, (Reported) Glimepiride 2 Mg Tablet, 2 MG PO BID, (Reported) Insulin Glargine,Hum.rec.anlog 100 Unit/1 Ml Insuln.pen, 15 UNIT SQ HS, ( Reported) Lisinopril 10 Mg Tablet, 10 MG PO DAILY, (Reported) Magnesium Oxide 400 Mg Capsule, 400 MG PO DAILY, (Reported) Meloxicam 7.5 Mg Tablet, 7.5 MG PO DAILY, (Reported) Mirtazapine 15 Mg Tablet, 45 MG PO HS, (Reported) take 3 (15mg) tabs Nitroglycerin 0.4 Mg Tab.subl, 0.4 MG SL UD PRN for CHEST PAIN, (Reported) Omeprazole 20 Mg Capsule.dr, 20 MG PO DAILY, (Reported) Phenytoin Sodium Extended 100 Mg Capsule, 300 MG PO 1200, (Reported) TAKES 3 (100 MG) CAPSULES Potassium Chloride 20 Meq Tab.er.prt, 20 MEQ PO 1200, (Reported) Sennosides 8.6 Mg Tablet, 8.6 MG PO BID PRN for CONSTIPATION-1ST LINE, (Reported ) Sertraline HCl 100 Mg Tablet, 300 MG PO DAILY, (Reported) TAKES 3 (100 MG) TABLETS Torsemide 20 Mg Tablet, 20 MG PO DAILY, (Reported) Triamcinolone Acet 15 Gm Cr, TP Q8H PRN for ITCHING/ OPEN SORES, (Reported) Patient Home Medication List Home Medication List Reviewed: Yes PILAR LOZA MD Nov 04, 2018 11:05
[2018-11-04] MEDS ORDERED: ACHD5005 PO (11:06)
--- NOTE | 2018-11-04 11:08 | Discharge Inst-Simple/Standard ---
Discharge Inst-Standard Discharge Medications New, Converted or Re-Newed RX: RX on Chart Patient Instructions/Follow Up Plan of Care/Instructions/FU: Band-Aids off prior to discharge. Incentive spirometry. Follow-up in 3 weeks. Activity as Tolerated: Yes Discharge Diet: ADA PILAR Lui MD Nov 04, 2018 11:08
[2018-11-04] MEDS ORDERED: ONDANSETRON 4 MG/2 ML (SDV) Z0FRAN IVP PRN ×2 (11:15→11:30)
[2018-11-04] MEDS ORDERED: fentaNYL INJECTION 100 MCG/2 ML AMP IV PRN (11:15)
[2018-11-04] MEDS ORDERED: HYDROmorphone 2 MG/ML VIAL (DILAUDID) ONE (11:23)
[2018-11-04] MEDS ORDERED: HYDROmorphone 2 MG/ML VIAL (DILAUDID) IV ONE (11:30)
[2018-11-04] MEDS ORDERED: morphine INJ 10 MG/ML 1ML (SYR OR VIAL) IVP ONE (11:30)
[2018-11-04] MEDS ORDERED: fentaNYL INJECTION 100 MCG/2 ML AMP IVP ONE (11:30)
[2018-11-04] MEDS ORDERED: EMPA1TAB3 PO (11:38)
[2018-11-04] MEDS ORDERED: LIDO700A45 TD (11:38)
[2018-11-04] MEDS ORDERED: HYDR-3812 PO (11:38)
[2018-11-04 12:00] VITALS: BP 105/63
[2018-11-04] MEDS ORDERED: PATIENT MAY USE OWN MEDS, ALL MC SCH (12:30)
[2018-11-04] MEDS ORDERED: ARTIFICAL TEARS 0.4 ML UNIT DOSE (REFRESH PLUS) OU PRN (12:45)
[2018-11-04] MEDS ORDERED: NITROGLYCERIN 0.4 MG SL TABS BTL 25'S SL PRN (12:45)
[2018-11-04] MEDS ORDERED: TRIAMCINOLONE 0.1% CR (KENALOG) 15 GM TUBE TP PRN (12:45)
[2018-11-04] MEDS ORDERED: lisINopril 10 MG (PRINIVIL) TABLET PO PRN ×2 (12:45→13:15)
[2018-11-04] MEDS ORDERED: BACLOFEN 10 MG (LIORESAL) TAB PO SCH (13:00)
[2018-11-04] MEDS ORDERED: NON-FORMULARY MEDICATION 1 EA EA (Gabapentin 800 MG) PO SCH (13:00)
[2018-11-04] MEDS ORDERED: GABAPENTIN 400 MG (NEURONTIN) CAP PO SCH (13:00)
[2018-11-04] MEDS: BACLOFEN 10 MG (LIORESAL) TAB PO SCH ×2 (13:33→21:37)
--- NOTE | 2018-11-04 13:49 | Anesthesia-General Post-Op ---
General Patient Condition Mental Status/LOC: Same as Preop Cardiovascular: Satisfactory Nausea/Vomiting: Absent Respiratory: Satisfactory Pain: Controlled Complications: Absent Post Op Complications Complications None Follow Up Care/Instructions Patient Instructions None needed. Anesthesia/Patient Condition Patient Condition Patient is doing well, no complaints, stable vital signs, no apparent adverse anesthesia problems. JULIEN DERAS DO Nov 04, 2018 13:49
[2018-11-04] MEDS: LACTATED RINGERS 1,000 ML IV SCH (13:50)
[2018-11-04 16:25] VITALS: BP 114/58
[2018-11-04] MEDS: inSUlin ASPART (NovoLOG) 1 UNIT/0.01 ML (CHARGE PER UNIT) SC SCH ×2 (17:04→21:23)
[2018-11-04] MEDS: HYDROcodone/APAP 5 MG/325 MG (LORTAB) TAB PO PRN ×2 (17:39→21:36)
[2018-11-04] MEDS ORDERED: FLU QUADRIvalent (5+ YOA) 2018-2019 (AFLURIA) 0.5 ML IM ONE (19:15)
[2018-11-04 20:15] VITALS: BP 109/53
[2018-11-04] MEDS ORDERED: ATORVASTATIN 20 MG (LIPITOR) TABLET PO SCH (21:00)
[2018-11-04] MEDS ORDERED: NON-FORMULARY MEDICATION 1 EA EA (Sennosides (Senna) 8.6 MG) PO SCH (21:00)
[2018-11-04] MEDS ORDERED: NON-FORMULARY MEDICATION 1 EA EA (Mirtazapine 45 MG) PO SCH (21:00)
[2018-11-04] MEDS ORDERED: MIRTAZAPINE 15 MG (REMERON) TAB PO SCH (21:00)
[2018-11-04] MEDS ORDERED: NON-FORMULARY MEDICATION 1 EA EA (Atorvastatin Calcium (Lipitor) 20 MG) PO SCH (21:00)
[2018-11-04] MEDS ORDERED: inSUlin DETERMIR 1 UNIT/0.01 ML (LEVEMIR) CHARGE PER UNIT SQ SCH (21:00)
[2018-11-04] MEDS: [UNRECOGNIZED DRUG - REMARK] PO SCH (21:40)
[2018-11-04] MEDS: SENNOSIDES 8.6 MG (SENOKOT) TAB PO SCH (21:43)
[2018-11-05 00:05] VITALS: BP 113/56
[2018-11-05] MEDS ORDERED: ACETAMINOPHEN 325 MG TABLET PO PRN (01:30)
[2018-11-05] MEDS: LACTATED RINGERS 1,000 ML IV SCH (02:50)
[2018-11-05 03:31] VITALS: BP 106/56
[2018-11-05] MEDS: inSUlin ASPART (NovoLOG) 1 UNIT/0.01 ML (CHARGE PER UNIT) SC SCH (06:38)
[2018-11-05 08:00] VITALS: BP 109/62
--- NOTE | 2018-11-05 08:10 | Progress Note-Standard ---
Standard Progress Note Progress Notes/Assess & Plan Date Seen by a Provider: Nov 05, 2018 Time Seen by a Provider: 07:25 Progress/Assessment & Plan fever last night possibly due to atelectasis. Abdomen showing very minimal postoperative tenderness. Encourage using incentive spirometry. Ambulate this morning and possibly discharge this afternoon Final Diagnosis gallstones PILAR LOZA MD Nov 05, 2018 08:10
[2018-11-05] MEDS ORDERED: MAGNESIUM OXIDE (MAG-OX)400 MG TAB PO SCH (09:00)
[2018-11-05] MEDS ORDERED: SERTRALINE 100 MG (ZOLOFT) TAB PO SCH (09:00)
[2018-11-05] MEDS ORDERED: NON-FORMULARY MEDICATION 1 EA EA (Allopurinol 100 MG) PO SCH (09:00)
[2018-11-05] MEDS ORDERED: ALLOPURINOL 100 MG (ZYLOPRIM) TAB PO SCH (09:00)
[2018-11-05] MEDS ORDERED: TORSEMIDE 20 MG (DEMADEX) TAB PO SCH (09:00)
[2018-11-05] MEDS ORDERED: FINASTERIDE (PROSCAR) 5 MG TAB PO SCH (09:00)
[2018-11-05] MEDS ORDERED: MELOXICAM 7.5 MG (MOBIC) TABLET PO SCH (09:00)
[2018-11-05] MEDS ORDERED: OMEPRAZOLE 20 MG (PriLOSEC) CAP NON-FORMULARY PO SCH (09:00)
[2018-11-05] MEDS: SENNOSIDES 8.6 MG (SENOKOT) TAB PO SCH (09:33)
[2018-11-05] MEDS: [UNRECOGNIZED DRUG - REMARK] PO SCH ×2 (09:37→15:01)
[2018-11-05] MEDS: BACLOFEN 10 MG (LIORESAL) TAB PO SCH ×2 (09:42→15:16)
[2018-11-05] MEDS: HYDROcodone/APAP 5 MG/325 MG (LORTAB) TAB PO PRN (09:56)
--- NOTE | 2018-11-05 10:06 | Anesthesia-General Post-Op ---
General Patient Condition Mental Status/LOC: Same as Preop Cardiovascular: Satisfactory Nausea/Vomiting: Absent Respiratory: Satisfactory Pain: Controlled Complications: Absent Post Op Complications Complications None Follow Up Care/Instructions Patient Instructions None needed. Anesthesia/Patient Condition Patient Condition Patient is doing well, no complaints, stable vital signs, no apparent adverse anesthesia problems. No complications reported per nursing. MELODIE CASTELLANOS CRNA Nov 05, 2018 10:06
[2018-11-05 12:00] VITALS: BP_SYST 109; BP_SYST 119; BP_DIAS 62; BP_DIAS 64
[2018-11-05] MEDS ORDERED: KCL 20 MEQ TAB (K-DUR) PO SCH (12:00)
[2018-11-05] MEDS ORDERED: PHENYTOIN 100 MG (DILANTIN) CAP PO SCH (12:00)
== END 2018-11-05 15:12 | disposition home or self-care (01) ==
LOC: SDC 07:29 → 4TH 12:05 → SDC 11-05 15:12
PROVIDERS: ATTEND Surgery
DX: K80.10 Calculus of gallbladder with chronic cholecystitis without obstruction (principal); Z11.2 Encounter for screening for other bacterial diseases; F41.9 Anxiety disorder, unspecified; N40.0 Benign prostatic hyperplasia without lower urinary tract symptoms; E11.40 Type 2 diabetes mellitus with diabetic neuropathy, unspecified; I12.9 Hypertensive chronic kidney disease with stage 1 through stage 4 chronic kidney disease, or unspecified chronic kidney disease; N18.9 Chronic kidney disease, unspecified; I08.1 Rheumatic disorders of both mitral and tricuspid valves; E66.9 Obesity, unspecified; R06.83 Snoring; Z68.33 Body mass index [BMI] 33.0-33.9, adult
CPT/HCPCS: 82962; 87081; 88304; 94664

== ENCOUNTER 2019-06-04 19:34 | Emergency (ER) | payer MEDICARE, MEDICAID ==
[~2019-06-04] VITALS: Ht 185.4 cm; Wt 120.2 kg
[~2019-06-04 19:34] MED LIST changes: +ACHD5005 PO; -AMLO2.5T3 PO; +AMLO2.5T4 PO; +GABA800T10 PO
--- NOTE | 2019-06-04 19:52 | NUR ---
pt here by self. pt alert gcs 15. in [place]ie pt same x. pt relates fell at home approx 1814. positive hit head and neg loc. pt has had recent cva and has leg brace on left leg and is using a cane. pt relates hit left side and not right side. pt c/o pain both left ribs and left abd. ? red colin/ abrasion luq abd noted. pt denies dyspnea and no acute sighns of dyspnea noted. lungs cta with decreased aeration bases bilatrally. abd soft nondistedned tender to palpation bilateral left quads only. pt tender to palpation left rib areas no obvious injury noted. another nurse мария is doing iv and labs. done obie pt at 1957.
--- NOTE | 2019-06-04 19:59 | ED Fall/Injury ---
General Stated Complaint: FALL/R SIDE RIB PAIN Source: patient Exam Limitations: no limitations History of Present Illness Date Seen by Provider: Jun 04, 2019 Time Seen by Provider: 19:57 Initial Comments To ER with reports of left upper quadrant abdominal and left lateral lower chest wall pain after a fall at home. He states his leg just didn't work right, he was here in January for suspected stroke and now wears a left knee brace and ambulates with a cane.. He did hit his head but no loss of consciousness. He is not on anticoagulants. He is unable to take a deep breath due to the pain Occurred: just prior to arrival Severity: moderate Injuries/Pain Location: chest, abdomen Context: unknown Loss of Consciousness: no loss of consciousness Associated Symptoms (Fall): Abdominal Pain, Chest Pain; No Confusion, No Headache, No Lightheadedness, No Nausea/Vomiting, No Neck Pain Allergies and Home Medications Allergies Coded Allergies: NKANo Known Allergies (Verified Allergy, Unknown, 07/08/06) Home Medications Allopurinol 100 Mg Tablet, 100 MG PO DAILY, (Reported) Atorvastatin Calcium 20 Mg Tablet, 20 MG PO HS, (Reported) Baclofen 10 Mg Tablet, 10 MG PO TID, (Reported) Carboxymethylcellulose Sodium 1 Each Droperette, 1 DROP OU BID PRN for DRY EYES, (Reported) Empagliflozin/Linagliptin 1 Each Tablet, 1 TAB PO DAILY, (Reported) Finasteride 5 Mg Tablet, 5 MG PO DAILY, (Reported) Gabapentin 800 Mg Tablet, 800 MG PO TID, (Reported) Hydrocodone Bit/Acetaminophen 1 Tab Tab, 1 TAB PO Q6H PRN for PAIN-MODERATE Prescribed by: PILAR LOZA on 11/04/18 1106 Hydrocodone/Acetaminophen 1 Each Tablet, 1 TAB PO Q6H PRN for PAIN-MODERATE, (Reported) Insulin Glargine,Hum.rec.anlog 100 Unit/1 Ml Insuln.pen, 15 UNIT SQ HS, (Reported) Lidocaine 1 Each Adh..patch, 1 PATCH TD DAILY PRN for BACK PAIN, (Reported) Lisinopril 10 Mg Tablet, 10 MG PO DAILY PRN for SBP>100 OR HR>60, (Reported) Magnesium Oxide 400 Mg Capsule, 400 MG PO DAILY, (Reported) Meloxicam 7.5 Mg Tablet, 7.5 MG PO DAILY, (Reported) Mirtazapine 15 Mg Tablet, 45 MG PO HS, (Reported) take 3 (15mg) tabs Nitroglycerin 0.4 Mg Tab.subl, 0.4 MG SL UD PRN for CHEST PAIN, (Reported) Omeprazole 20 Mg Capsule.dr, 20 MG PO DAILY, (Reported) Phenytoin Sodium Extended 100 Mg Capsule, 300 MG PO 1200, (Reported) TAKES 3 (100 MG) CAPSULES Potassium Chloride 20 Meq Tab.er.prt, 20 MEQ PO 1200, (Reported) Sennosides 8.6 Mg Tablet, 8.6 MG PO BID, (Reported) Sertraline HCl 100 Mg Tablet, 300 MG PO DAILY, (Reported) TAKES 3 (100 MG) TABLETS Torsemide 20 Mg Tablet, 20 MG PO DAILY, (Reported) Triamcinolone Acet 15 Gm Cr, TP Q8H PRN for ITCHING/ OPEN SORES, (Reported) Patient Home Medication List Home Medication List Reviewed: Yes Review of Systems Review of Systems Constitutional: see HPI Eyes: No Symptoms Reported Ears, Nose, Mouth, Throat: no symptoms reported Respiratory: no symptoms reported Cardiovascular: no symptoms reported Genitourinary: no symptoms reported Musculoskeletal: see HPI Skin: no symptoms reported Psychiatric/Neurological: No Symptoms Reported Past Jnismzn-[id number]-Hdztdm Hx Patient Social History Recent Foreign Travel: No Contact w/Someone Who Travel: No Recent Hopitalizations: Yes (JANUARY 30- R/T LEGS / LEFT SIDED WEAKNESS) Seasonal Allergies Seasonal Allergies: No Past Medical History Surgeries: Yes Appendectomy, Neurological, Orthopedic Respiratory: No Sleep Apnea Currently Using CPAP: Yes Cardiac: Yes Heart Attack, Hypertension, Irregular Heartbeat Neurological: Yes (epilepsy) Reproductive Disorders: No Genitourinary: Yes Prostate Problems Gastrointestinal: No Gall Bladder Disease Musculoskeletal: Yes Arthritis Endocrine: No Diabetes, Non-Insulin dep HEENT: Yes (chronic mastoiditis of left side, chronic otits media) Chronic Ear Infection Loss of Vision: Denies Hearing Impairment: Denies Cancer: Yes Skin Psychosocial: No Depression Integumentary: No Blood Disorders: No Family Medical History Alzheimer's disease 19 MOTHER FH: depression 19 MOTHER Physical Exam Vital Signs Vital Signs - First Documented 06/04/19 19:52 Temp 98.3 Pulse 96 Resp 16 B/P (MAP) 105/77 (86) Pulse Ox 94 O2 Delivery Room Air Capillary Refill : Height, Weight, BMI Height: 6'1.00" Weight: 250lbs. 0.0oz. [id number]; 33.0 BMI Method:Stated General Appearance: WD/WN, no apparent distress HEENT: PERRL/EOMI, normal ENT inspection Neck: non-tender, full range of motion Respiratory: normal breath sounds, no respiratory distress, no accessory muscle use, other (left anterolateral chest wall is very tender to palpation) Gastrointestinal: normal bowel sounds, soft, tenderness (left upper abdomen is tender to palpation) Extremities: other (brace on the left knee) Neurologic/Psychiatric: alert, normal mood/affect, oriented x 3 Skin: normal color, warm/dry [place] Coma Score Best Eye Response: (4) Open Spontaneously Best Verbal Response: (5) Oriented Best Motor Response: (6) Obeys Commands [place] Total: 15 Progress/Results/Core Measures Results/Orders Lab Results Laboratory Tests Test 06/04/19 20:00 Range/Units White Blood Count 14.4 H 4.3-11.0 10^3/uL Red Blood Count 5.01 4.35-5.85 10^6/uL Hemoglobin 14.9 13.3-17.7 G/DL Hematocrit 43 40-54 % Mean Corpuscular Volume 86 80-99 FL Mean Corpuscular Hemoglobin 30 25-34 PG Mean Corpuscular Hemoglobin Concent 35 32-36 G/DL Red Cell Distribution Width 14.9 H 10.0-14.5 % Platelet Count 219 130-400 10^3/uL Mean Platelet Volume 10.0 7.4-10.4 FL Neutrophils (%) (Auto) 64 42-75 % Lymphocytes (%) (Auto) 24 12-44 % Monocytes (%) (Auto) 9 0-12 % Eosinophils (%) (Auto) 3 0-10 % Basophils (%) (Auto) 0 0-10 % Neutrophils # (Auto) 9.3 H 1.8-7.8 X 10^3 Lymphocytes # (Auto) 3.5 1.0-4.0 X 10^3 Monocytes # (Auto) 1.2 H 0.0-1.0 X 10^3 Eosinophils # (Auto) 0.4 H 0.0-0.3 10^3/uL Basophils # (Auto) 0.1 0.0-0.1 10^3/uL Neutrophils % (Manual) 71 % Lymphocytes % (Manual) 15 % Monocytes % (Manual) 6 % Eosinophils % (Manual) 4 % Basophils % (Manual) 0 % Band Neutrophils 0 % Reactive Lymphocytes 4 % Anisocytosis SLIGHT Sodium Level 138 135-145 MMOL/L Potassium Level 4.1 3.6-5.0 MMOL/L Chloride Level 105 98-107 MMOL/L Carbon Dioxide Level 18 L 21-32 MMOL/L Anion Gap 15 H 5-14 MMOL/L Blood Urea Nitrogen 15 7-18 MG/DL Creatinine 1.25 0.60-1.30 MG/DL Estimat Glomerular Filtration Rate 57 BUN/Creatinine Ratio 12 Glucose Level 139 H 70-105 MG/DL Calcium Level 9.1 8.5-10.1 MG/DL My Orders Orders - CATHRYN MAIN APRN Ed Iv/Invasive Line Start (06/04/19 19:55) Ct Chest/Abdomen/Pelvis W (06/04/19 19:55) Ct Head Wo (06/04/19 19:55) Iohexol Injection (Omnipaque 350 Mg/Ml 1 (06/04/19 20:15) Received Contrast (Hold Metformin- Contr (06/04/19 20:15) Sodium Chloride Flush (Catheter Flush Sy (06/04/19 20:15) Ns (Ivpb) (Sodium Chloride 0.9% Ivpb Bag (06/04/19 20:15) Cbc With Automated Diff (06/04/19 20:07) Basic Metabolic Panel (06/04/19 20:07) Ed Iv/Invasive Line Start (06/04/19 20:07) Manual Differential (06/04/19 20:00) Fentanyl Injection (Sublimaze Injection (06/04/19 20:45) Ketorolac Injection (Toradol Injection) (06/04/19 20:45) Medications Given in ED Current Medications Medications Dose Ordered Sig/Cristhian Route Start Time Stop Time Status Last Admin Dose Admin Iohexol 100 ml ONCE ONCE IV 06/04/19 20:15 06/04/19 20:16 DC 06/04/19 20:40 75 ML Ketorolac Tromethamine 15 mg ONCE ONCE IVP 06/04/19 20:45 06/04/19 20:46 DC 06/04/19 20:47 15 MG Sodium Chloride 10 ml NEEDED PRN IV 7/5/19 20:15 06/04/19 20:40 10 ML Vital Signs/I&O 06/04/19 06/04/19 19:52 21:13 Temp 98.3 99.0 Pulse 96 84 Resp 16 16 B/P (MAP) 105/77 (86) 112/73 (86) Pulse Ox 94 96 O2 Delivery Room Air Room Air Departure Impression Primary Impression: Chest wall pain Disposition: HOME, SELF-CARE Condition: Stable Departure-Patient Inst. Decision time for Depature: 21:23 Referrals: JESSICA ROMERO MD (PCP/Family) Primary Care Physician Patient Instructions: Chest Pain Add. Discharge Instructions: 1. Medication as directed 2. Return to ER for any concerns 3. Follow-up with your doctor next week Scripts Hydrocodone/Acetaminophen ([place] 5-325 Tablet) 1 Each Tablet 1 TAB PO Q4-6HR for Pain MDD 10 TABS for 7 Days, #20 TAB Prov: CATHRYN MAIN APRN 06/04/19 CATHRYN MAIN APRN Jun 04, 2019 19:59
[2019-06-04 20:14] LABS: BASOPHILS # (AUTO) 0.1 10^3/uL (0.0-0.1); BASOPHILS % (AUTO) 0 % (0-10); EOSINOPHILS # (AUTO) 0.4 10^3/uL (0.0-0.3); EOSINOPHILS % (AUTO) 3 % (0-10); HEMATOCRIT 43 % (40-54); HEMOGLOBIN 14.9 G/DL (13.3-17.7); LYMPHOCYTES # (AUTO) 3.5 X 10^3 (1.0-4.0); LYMPHOCYTES % (AUTO) 24 % (12-44); MEAN CORPUSCULAR HEMOGLOBIN 30 PG (25-34); MEAN CORPUSCULAR HGB CONC 35 G/DL (32-36); MEAN CORPUSCULAR VOLUME 86 FL (80-99); MONOCYTES # (AUTO) 1.2 X 10^3 (0.0-1.0); MONOCYTES % (AUTO) 9 % (0-12); NEUTROPHILS # (AUTO) 9.3 X 10^3 (1.8-7.8); NEUTROPHILS % (AUTO) 64 % (42-75); PLATELET COUNT 219 10^3/uL (130-400); RED CELL DISTRIBUTION WIDTH 14.9 % (10.0-14.5); WHITE BLOOD COUNT 14.4 10^3/uL (4.3-11.0)
[2019-06-04] MEDS ORDERED: NS 100 ML (IVPB) BAG IV ONE (20:15)
[2019-06-04] MEDS ORDERED: CATHETER FLUSH 10 ML SYR IV PRN (20:15)
[2019-06-04] MEDS ORDERED: HOLD METFORMIN - RECEIVED CONTRAST 20 ML VIAL IV SCH (20:15)
[2019-06-04] MEDS ORDERED: IOHEXOL 350 MG/ML 100 ML (OMNIPAQUE 350) VIAL IV ONE (20:15)
[2019-06-04 20:27] LABS: BAND NEUTROPHILS 0 %; BASOPHILS % (MANUAL) 0 %; EOSINOPHILS % (MANUAL) 4 %; LYMPHOCYTES % (MANUAL) 15 %; MONOCYTES % (MANUAL) 6 %; NEUTROPHILS % (MANUAL) 71 %; REACTIVE LYMPHOCYTES 4 %
[2019-06-04 20:28] LABS: ANISOCYTOSIS SLIGHT
--- NOTE | 2019-06-04 20:29 | Diagnostic Imaging Report ---
PROCEDURE: CT head without contrast. TECHNIQUE: Multiple contiguous axial images were obtained through the brain without the use of intravenous contrast. Auto Exposure Controls were utilized during the CT exam to meet ALARA standards for radiation dose reduction. INDICATION: Fell this afternoon while carrying items. Complaining of headache. Possible stroke. FINDINGS: There is previous left temporal craniotomy. Atrophy appears stable. No mass effect, midline shift, hemorrhage or extra-axial fluid collections are identified. Calcification along the falx appears unchanged. No acute fractures are present. Sclerosis of the left mastoid air cells is again identified. IMPRESSION: Stable CT scan of the head. Dictated by: Dictated on workstation # [id number]
[2019-06-04 20:31] LABS: CALCIUM 9.1 MG/DL (8.5-10.1); CREATININE SERUM 1.25 MG/DL (0.60-1.30); POTASSIUM 4.1 MMOL/L (3.6-5.0)
--- NOTE | 2019-06-04 20:31 | NUR ---
no istats in er. another nurse sent labs to lab
[2019-06-04] MEDS ORDERED: fentaNYL INJECTION 100 MCG/2 ML AMP IVP ONE (20:45)
[2019-06-04] MEDS ORDERED: KETOROLAC 30 MG/ML VIAL IVP ONE (20:45)
--- NOTE | 2019-06-04 20:49 | NUR ---
no obvious head injury noted by me except surgical scar left perietel skull that indents in on palpation.
--- NOTE | 2019-06-04 20:57 | Diagnostic Imaging Report ---
INDICATION: Difficulty breathing. Fell this afternoon. Complaining of left upper quadrant, abdominal and rib pain. Patient is insulin dependent. COMPARISON STUDY: There are no pertinent studies. FINDINGS: CT chest: CT scanning of the chest demonstrates some calcification of the coronary arteries. Heart size is normal. No pleural or pericardial effusions are present. Calcified granuloma is present in the left lower lobe. The lungs are otherwise clear. There is no abnormal adenopathy. There is a hemangioma of the T8 vertebral body. Mild degenerative change is present in the spine. CT: abdomen/pelvis: The spleen is upper normal in size. The liver, pancreas, adrenal glands and kidneys appear normal. Mild arterial sclerosis is present. No stenotic lesions, aneurysms or dissections are present. Urinary bladder and prostate gland are normal. No hernias are present. Bowel loops demonstrate no obstructive or inflammatory changes. The osseous structures demonstrate degenerative changes of the spine. IMPRESSION: No acute findings are present. Arterial sclerosis is present with some calcification of the coronary arteries. Degenerative change is present in the spine. The spleen is borderline enlarged. Dictated by: Dictated on workstation # [id number]
[2019-06-04 21:13] VITALS: BP 112/73
--- NOTE | 2019-06-04 21:13 | NUR ---
pt remains alert gcs 15 and here by self. pt relates less pain but left side pain continues. pt denies dyspnea though c/o pain left side when breathing. no acute sighns of dyspnea noted. resp might be a little shallow nonlabored.
[2019-06-04] MEDS ORDERED: HYDR-4226 PO (21:24)
[2019-06-04] MEDS ORDERED: RX-HYDROCODONE/APAP 5/325 MG #4 TAB PK PO PRN (21:30)
--- NOTE | 2019-06-04 21:43 | NUR ---
d/c instructions to pt. told to read all papers. scripts paper only. pt left ambulatory by self. pt knows f/u. i went over the handtyped by information on the chart. iv d/cd by me prior to d/c. pt did not want help to the car. take home vicodin given.
[2019-06-04 21:45] VITALS: BP 118/83
== END 2019-06-04 21:43 | disposition home or self-care (01) ==
LOC: EDUNIT# 19:34 → ER 19:35
DX: R07.89 Other chest pain (principal); G47.30 Sleep apnea, unspecified; I10 Essential (primary) hypertension; I25.2 Old myocardial infarction; E11.9 Type 2 diabetes mellitus without complications; Z85.828 Personal history of other malignant neoplasm of skin; Z90.49 Acquired absence of other specified parts of digestive tract; Z79.4 Long term (current) use of insulin; W19.XXXA Unspecified fall, initial encounter; Y92.009 Unspecified place in unspecified non-institutional (private) residence as the place of occurrence of the external cause
CPT/HCPCS: 36415; 70450; 71260; 74177; 80048; 85007; 85027; 96374

== ENCOUNTER → 2019-10-01 | Outpatient (CLI) | payer MEDICARE, MEDICAID ==
[~2019-10-01] MED LIST changes: -GLIM2TAB PO; +GLIM2TAB2 PO; +HYDR-4226 PO; +OMEP-280 PO; -OMEP10CA4 PO; +OMEP10CA5 PO; -OMEP20CA12 PO
[2019-10-01 11:59] LABS: BASOPHILS % (AUTO) 0 % (0-10); EOSINOPHILS # (AUTO) 0.2 10^3/uL (0.0-0.3); EOSINOPHILS % (AUTO) 2 % (0-10); HEMATOCRIT 42 % (40-54); HEMOGLOBIN 14.2 G/DL (13.3-17.7); LYMPHOCYTES % (AUTO) 20 % (12-44); MEAN CORPUSCULAR HEMOGLOBIN 29 PG (25-34); MEAN CORPUSCULAR HGB CONC 34 G/DL (32-36); MEAN CORPUSCULAR VOLUME 87 FL (80-99); MONOCYTES # (AUTO) 0.7 X 10^3 (0.0-1.0); MONOCYTES % (AUTO) 7 % (0-12); NEUTROPHILS # (AUTO) 7.1 X 10^3 (1.8-7.8); NEUTROPHILS % (AUTO) 71 % (42-75); PLATELET COUNT 164 10^3/uL (130-400); RED CELL DISTRIBUTION WIDTH 14.2 % (10.0-14.5)
[2019-10-01 12:46] LABS: ERYTHROCYTE SEDIMENTATION RATE 12 MM/HR (0-30)
--- NOTE | 2019-10-01 15:21 | Diagnostic Imaging Report ---
INDICATION: Lump in left temporal region. TECHNIQUE: Patient was administered 25.3 mCi of technetium-99m MDP intravenously and whole-body imaging was performed after three-hour delay. COMPARISON: Comparison is made with prior bone scan from 02/11/2011. FINDINGS: There is normal uptake of activity by the axial and appendicular skeleton. There is uptake by the kidneys with excretion into the urinary bladder. There are several foci of mild uptake involving anterior left lower ribs. There is also some uptake near the costochondral junctions of the lower left ribs. This may be post traumatic and correlation to recent trauma is recommended. No other suspicious foci are seen. In particular, no abnormal activity is identified at the area of lump in the left temporal calvarium. IMPRESSION: 1. No abnormal activity identified in the calvarium. 2. Several foci of activity in lower left anterior ribs. Focused nature of the activity makes trauma the most likely etiology. Clinical correlation is recommended. Dictated by: Dictated on workstation # [id number]
== END ==
LOC: CARD 11:36
PROVIDERS: ATTEND Neurological Surgery
DX: M95.2 Other acquired deformity of head (principal); H65.492 Other chronic nonsuppurative otitis media, left ear; R22.0 Localized swelling, mass and lump, head
CPT/HCPCS: 36415; 78306; 85025; 85652

== ENCOUNTER 2020-10-12 14:46 | Observation (INO) | payer MEDICARE, MEDICAID ==
[~2020-10-12] VITALS: Ht 185 cm; Wt 99.7 kg
[~2020-10-12 14:46] MED LIST changes: -GLIM2TAB2 PO; +GLIM2TAB4 PO; -HYDR-3812 PO; -OMEP-280 PO; +OMEP20CA18 PO; -SENN-141 PO; +SENN-234 PO
--- NOTE | 2020-10-12 15:06 | ED Respiratory ---
General Chief Complaint: General Problems/Pain Stated Complaint: WEAKNESS Source: patient Exam Limitations: no limitations History of Present Illness Date Seen by Provider: Oct 12, 2020 Time Seen by Provider: 14:48 Initial Comments Patient presents to the ER by EMS from his home with chief complaint that he was discharged home 2 days ago with COVID 19. He was diagnosed on 25 September. He has not had any fevers recently. He was encouraged by his doctor to go to inpatient rehabilitation but because of his documented that he was walking he did not qualify. The patient says since he got home he has not been able to walk very well and has just sat in his chair. Every time he tried to get up in the past 2 days he has fallen. His last fall was this morning. He struck his head against a door. He denies loss of consciousness. He has a history of surgery related to epilepsy from [facility]. The patient is diabetic and had a normal blood sugar of 130s per EMS. He has irregular heart rate but denies being on any blood thinners and nothing is in his records from his previous stay of a blood thinn er. He is not having any confusion nausea just generalized weakness. EMS reports his oxygen sats were 93% on room air so they put him on 2 L which brought him up to 98%. He does use a CPAP at night to sleep and has a history of COPD. but EMS reports a temperature of 99.9 when they arrived. Allergies and Home Medications Allergies Coded Allergies: Yony Known Allergies (Verified Allergy, Unknown, 07/08/06) Home Medications Allopurinol 100 Mg Tablet, 100 MG PO DAILY, (Reported) Atorvastatin Calcium 20 Mg Tablet, 20 MG PO HS, (Reported) Baclofen 10 Mg Tablet, 10 MG PO TID, (Reported) Carboxymethylcellulose Sodium 1 Each Droperette, 1 DROP OU BID PRN for DRY EYES, (Reported) Empagliflozin/Linagliptin 1 Each Tablet, 1 TAB PO DAILY, (Reported) Finasteride 5 Mg Tablet, 5 MG PO DAILY, (Reported) Gabapentin 800 Mg Tablet, 800 MG PO TID, (Reported) Hydrocodone Bit/Acetaminophen 1 Tab Tab, 1 TAB PO Q6H PRN for PAIN-MODERATE Prescribed by: PILAR LOZA on 11/04/18 1106 Hydrocodone Bit/Acetaminophen 1 Each Tablet, 1 TAB PO Q6H PRN for PAIN-MODERATE, (Reported) Hydrocodone/Acetaminophen 1 Each Tablet, 1 TAB PO Q4-6HR Prescribed by: CATHRYN MAIN on 06/04/192123 Insulin Glargine,Hum.rec.anlog 100 Unit/1 Ml Insuln.pen, 15 UNIT SQ HS, (Repo rted) Lidocaine 1 Each Adh..patch, 1 PATCH TD DAILY PRN for BACK PAIN, (Reported) Lisinopril 10 Mg Tablet, 10 MG PO DAILY PRN for SBP>100 OR HR>60, (Reported) Magnesium Oxide 400 Mg Capsule, 400 MG PO DAILY, (Reported) Meloxicam 7.5 Mg Tablet, 7.5 MG PO DAILY, (Reported) Mirtazapine 15 Mg Tablet, 45 MG PO HS, (Reported) take 3 (15mg) tabs Nitroglycerin 0.4 Mg Tab.subl, 0.4 MG SL UD PRN for CHEST PAIN, (Reported) Omeprazole 20 Mg Capsule.dr, 20 MG PO DAILY, (Reported) Phenytoin Sodium Extended 100 Mg Capsule, 300 MG PO 1200, (Reported) TAKES 3 (100 MG) CAPSULES Potassium Chloride 20 Meq Tab.er.prt, 20 MEQ PO 1200, (Reported) Sennosides 8.6 Mg Tablet, 8.6 MG PO BID, (Reported) Sertraline HCl 100 Mg Tablet, 300 MG PO DAILY, (Reported) TAKES 3 (100 MG) TABLETS Torsemide 20 Mg Tablet, 20 MG PO DAILY, (Reported) Triamcinolone Acet 15 Gm Cr, TP Q8H PRN for ITCHING/ OPEN SORES, (Reported) Patient Home Medication List Home Medication List Reviewed: Yes Review of Systems Review of Systems Constitutional: No chills, No fever; malaise, weakness EENTM: No ear discharge, No ear pain Respiratory: cough, short of breath; No wheezing Cardiovascular: No chest pain; edema; No palpitations Gastrointestinal: No abdominal pain, No constipation, No nausea, No vomiting Genitourinary: No discharge, No dysuria Musculoskeletal: No back pain, No joint pain All Other Systems Reviewed Negative Unless Noted: Yes Past Sxwwkde-Zuowgs-Fvgkmu Hx Patient Social History Alcohol Use: Denies Use Recreational Drug Use: No Smoking Status: Never a Smoker Recent Hopitalizations: Yes (JANUARY 30- R/T LEGS / LEFT SIDED WEAKNESS) Seasonal Allergies Seasonal Allergies: No Past Medical History Surgeries: Yes (shoulder, brain sx for epilepsy, ) Appendectomy, Neurological, Orthopedic Respiratory: Yes Sleep Apnea Currently Using CPAP: Yes Cardiac: Yes (tachycardia) Heart Attack, Hypertension, Irregular Heartbeat Neurological: Yes (epilepsy no seizure since brain sx) Reproductive Disorders: No Genitourinary: Yes Prostate Problems Gastrointestinal: Yes Gall Bladder Disease Musculoskeletal: Yes Arthritis Endocrine: Yes Diabetes, Non-Insulin dep HEENT: Yes (chronic mastoiditis of left side, chronic otits media) Chronic Ear Infection Loss of Vision: Denies Hearing Impairment: Denies Cancer: Yes Skin Psychosocial: Yes Depression Integumentary: No Blood Disorders: No Family Medical History Alzheimer's disease 19 MOTHER FH: depression 19 MOTHER Physical Exam Vital Signs - First Documented 10/12/20 14:52 Temp 35.8 Pulse 90 Resp 20 B/P (MAP) 127/80 (96) Pulse Ox 98 O2 Delivery Nasal Cannula O2 Flow Rate 3.00 FiO2 99 Capillary Refill : Height: 6'1.00" Weight: 265lbs. 0.0oz. 120.125627en; 33.0 BMI Method:Stated General Appearance: mild distress, obese Eyes: Bilateral Eye Normal Inspection, Bilateral Eye PERRL, Bilateral Eye EOMI HEENT: PERRL/EOMI, normal ENT inspection, pharynx normal Neck: full range of motion, supple, normal inspection Respiratory: lungs clear, normal breath sounds, no respiratory distress, no accessory muscle use Cardiovascular: normal peripheral pulses, regular rate, rhythm; No tachycardia Gastrointestinal: normal bowel sounds, non tender, soft Extremities: normal range of motion, normal capillary refill Neurologic/Psychiatric: alert, normal mood/affect, oriented x 3 Skin: normal color, warm/dry Progress/Results/Core Measures Suspected Sepsis SIRS Temperature: Pulse: Respiratory Rate: Laboratory Tests 10/12/20 14:52: White Blood Count 6.8 Blood Pressure / Mean: Laboratory Tests 10/12/20 14:52: Creatinine 0.92, INR Comment 1.1, Platelet Count 343, Total Bilirubin 0.8 Results/Orders Lab Results Laboratory Tests Test 10/12/20 14:52 10/12/20 14:59 10/12/20 17:30 Range/Units White Blood Count 6.8 4.3-11.0 10^3/uL Red Blood Count 4.96 4.30-5.52 10^6/uL Hemoglobin 14.0 13.3-17.7 g/dL Hematocrit 44 40-54 % Mean Corpuscular Volume 89 80-99 fL Mean Corpuscular Hemoglobin 28 25-34 pg Mean Corpuscular Hemoglobin Concent 32 32-36 g/dL Red Cell Distribution Width 15.2 H 10.0-14.5 % Platelet Count 343 130-400 10^3/uL Mean Platelet Volume 9.2 9.0-12.2 fL Immature Granulocyte % (Auto) 2 % Neutrophils (%) (Auto) 57 42-75 % Lymphocytes (%) (Auto) 29 12-44 % Monocytes (%) (Auto) 10 0-12 % Eosinophils (%) (Auto) 2 0-10 % Basophils (%) (Auto) 1 0-10 % Neutrophils # (Auto) 3.9 1.8-7.8 10^3/uL Lymphocytes # (Auto) 2.0 1.0-4.0 10^3/uL Monocytes # (Auto) 0.7 0.0-1.0 10^3/uL Eosinophils # (Auto) 0.1 0.0-0.3 10^3/uL Basophils # (Auto) 0.0 0.0-0.1 10^3/uL Immature Granulocyte # (Auto) 0.1 0.0-0.1 10^3/uL Prothrombin Time 14.5 12.2-14.7 SEC INR Comment 1.1 0.8-1.4 Activated Partial Thromboplast Time 35 24-35 SEC Sodium Level 140 135-145 MMOL/L Potassium Level 4.2 3.6-5.0 MMOL/L Chloride Level 111 H 98-107 MMOL/L Carbon Dioxide Level 16 L 21-32 MMOL/L Anion Gap 13 5-14 MMOL/L Blood Urea Nitrogen 15 7-18 MG/DL Creatinine 0.92 0.60-1.30 MG/DL Estimat Glomerular Filtration Rate > 60 BUN/Creatinine Ratio 16 Glucose Level 123 H 70-105 MG/DL Calcium Level 9.4 8.5-10.1 MG/DL Corrected Calcium 9.7 8.5-10.1 MG/DL Total Bilirubin 0.8 0.1-1.0 MG/DL Aspartate Amino Transf (AST/SGOT) 63 H 5-34 U/L Alanine Aminotransferase (ALT/SGPT) 54 0-55 U/L Alkaline Phosphatase 200 H 40-136 U/L C-Reactive Protein High Sensitivity 1.29 H 0.00-0.50 MG/DL B-Type Natriuretic Peptide 18.2 <100.0 PG/ML Total Protein 7.6 6.4-8.2 GM/DL Albumin 3.6 3.2-4.5 GM/DL Procalcitonin 0.14 H <0.10 NG/ML Blood Gas Puncture Site RR Blood Gas Patient Temperature 96.8 Arterial Blood pH 7.35 L 7.37-7.43 Arterial Blood Partial Pressure CO2 32 L 35-45 MMHG Arterial Blood Partial Pressure O2 143 H 79-93 MMHG Arterial Blood HCO3 17 *L 23-27 MMOL/L Arterial Blood Total CO2 18.4 L 21.0-31.0 MMOL/L Arterial Blood Oxygen Saturation 99 94-100 % Arterial Blood Base Excess -7.2 L -2.5-2.5 MMOL/L Juan Carlos Test YES-POS Blood Gas Ventilator Setting NO Blood Gas Inspired Oxygen 2L My Orders Orders - NICOLLE SOLER Blood Culture (10/12/20 15:02) Chest 1 View, Ap/Pa Only (10/12/20 15:02) Cbc With Automated Diff (10/12/20 15:02) Comprehensive Metabolic Panel (10/12/20 15:02) Procalcitonin (Pct) (10/12/20 15:02) Hs C Reactive Protein (10/12/20 15:02) Ua Culture If Indicated (10/12/20 15:02) Sputum Culture (10/12/20 15:02) O2 (10/12/20 15:02) Lactated Ringers (Lr 1000 Ml Iv Solution (10/12/20 15:15) BNP (10/12/20 15:02) Arterial Blood Gas (10/12/20 15:09) Protime With Inr (10/12/20 15:09) Partial Thromboplastin Time (10/12/20 15:09) Lactated Ringers (Lr 1000 Ml Iv Solution (10/12/20 15:17) Ct Head/Cervical Spine Wo (10/12/20 15:32) Vital Signs/I&O 10/12/20 10/12/20 14:52 14:52 Temp 35.8 Pulse 90 Resp 20 B/P (MAP) 127/80 (96) Pulse Ox 98 98 O2 Delivery Nasal Cannula Nasal Cannula O2 Flow Rate 3.00 3.00 FiO2 99 Capillary Refill : Progress Note : Time: 16:37 Progress Note Suspect she may have pneumonia versus changes from his recent COVID-19 infection seen on chest x-ray. No white count but he does have some new onset hypoxia. He certainly has too weak to even transfer himself from the gurney to the bed and could benefit from some inpatient rehabilitation. Reviewed the case with Dr. Gaming who took care of him at [facility] and she said insurance will not cover any kind of rehabilitation or even in the senior living. She says he is having failure to thrive even before his admission and she agrees that he needs physical rehabilitation but after 2 weeks in the hospital there were unable to get him into it because his insurance company declined paying for it. He did have COVID-19 as well as a bacterial pneumonia which would explain the changes seen on the chest x-ray. There white count and markers of inflammation are unremarkable patient has no fever so it is likely that we are only seeing remanence of the pneumonia that was already treated. Diagnostic Imaging Diagonstic Imaging: Xray Plain Films/CT/US/NM/MRI: chest Comments NAME: PJ SKY [facility] REC#: [id number] PT STATUS: REG ER : 1950 PHYSICIAN: NICOLLE SOLER MD ADMIT DATE: 10/12/20/ER Draft Date of Exam:10/12/20 CHEST 1 VIEW, AP/PA ONLY Indication: Shortness of air. Time of exam: 3:40 PM Correlation is made with prior chest 05/02/2018. The heart size is stable. There is significant ectasia and tortuosity of the descending thoracic aorta. There appeared to be patchy infiltrates in both lung bases. Mid and upper lung jackson are clear. No effusion or pneumothorax is detected. Battery pack overlies the left upper chest. Impression: Patchy bibasilar infiltrates consistent with pneumonia. Dictated on workstation # [id number] Dict: 10/12/20 1558 Trans: 10/12/20 1604 CV [id number] Interpreted by: DINAH ARCE MD Electronically signed by: Reviewed: Reviewed by Me Diagonstic Imaging: CT Plain Films/CT/US/NM/MRI: c-spine, head Comments [facility] [place], [place] NAME: PJ SKY [facility] REC#: [id number] PT STATUS: REG ER : 1950 PHYSICIAN: NICOLLE SOLER MD ADMIT DATE: 10/12/20/ER Draft Date of Exam:10/12/20 CT HEAD/CERVICAL SPINE WO PROCEDURE: CT head and CT cervical spine without contrast. TECHNIQUE: Multiple contiguous axial images were obtained through the brain and cervical spine without the use of intravenous contrast. Sagittal and coronal reformations through the cervical spine were then performed. Auto Exposure Controls were utilized during the CT exam to meet ALARA standards for radiation dose reduction. INDICATION: Multiple falls. COMPARISON: Correlation is made with recent head CT from 06/04/2019. FINDINGS: CT HEAD: The ventricles and sulci are stable in appearance. No sulcal effacement or midline shift is identified. No acute intra-axial or extra-axial hemorrhage is detected. Cisterns are patent. Visualized paranasal sinuses are clear. There are postop changes of left frontotemporal craniectomy. IMPRESSION: Postop changes. No acute intracranial process is detected. CT CERVICAL SPINE: There is some straightening of the normal cervical lordotic curvature. Minimal anterolisthesis of C4 on C5 is noted. There is significant degenerative disc disease at C5-C6, C6-C7, and C7-T1 levels with significant disc space narrowing and marginal osteophyte formation. No fractures are identified. Prevertebral tissues are within normal limits. Odontoid is intact. IMPRESSION: Cervical spondylosis. No acute bony abnormality is detected. Dictated on workstation # [id number] Dict: 10/12/20 1619 Trans: 10/12/20 1624 AS6 [id number] Interpreted by: DINAH ARCE MD Electronically signed by: Reviewed: Reviewed by Me Departure Communication (Admissions) Time/Spoke to Admitting Phy: 17:50 Discussed the case with Dr. Lomas and he agrees to observe the patient for physical debility and work on placement. Impression Primary Impression: Physical debility Additional Impression: History of pneumonia Disposition: ADMITTED INPATIENT Condition: Stable Admissions Decision to Admit Reason: Admit from ER (General) Decision to Admit/Date: Oct 12, 2020 Time/Decision to Admit Time: 17:00 Departure-Patient Inst. Referrals: KAYODE RODRIGUEZ MD (PCP) Primary Care Physician JESSICA ROMERO MD (Family) Primary Care Physician NICOLLE SOLER Oct 12, 2020 15:06
[2020-10-12] MEDS ORDERED: LACTATED RINGERS 1,000 ML IV SCH (15:15)
[2020-10-12] MEDS ORDERED: LACTATED RINGERS 1,000 ML IV ONE (15:17)
[2020-10-12 15:18] LABS: BASOPHILS % (AUTO) 1 % (0-10); EOSINOPHILS # (AUTO) 0.1 10^3/uL (0.0-0.3); EOSINOPHILS % (AUTO) 2 % (0-10); HEMATOCRIT 44 % (40-54); LYMPHOCYTES % (AUTO) 29 % (12-44); MEAN CORPUSCULAR HEMOGLOBIN 28 pg (25-34); MEAN CORPUSCULAR HGB CONC 32 g/dL (32-36); MEAN CORPUSCULAR VOLUME 89 fL (80-99); MEAN PLATELET VOLUME 9.2 fL (9.0-12.2); MONOCYTES # (AUTO) 0.7 10^3/uL (0.0-1.0); MONOCYTES % (AUTO) 10 % (0-12); NEUTROPHILS # (AUTO) 3.9 10^3/uL (1.8-7.8); NEUTROPHILS % (AUTO) 57 % (42-75); PLATELET COUNT 343 10^3/uL (130-400); WHITE BLOOD COUNT 6.8 10^3/uL (4.3-11.0)
[2020-10-12 15:24] LABS: INR 1.1 (0.8-1.4); PROTHROMBIN TIME PATIENT 14.5 SEC (12.2-14.7)
[2020-10-12 15:27] LABS: ABG BASE EXCESS -7.2 MMOL/L (-2.5-2.5); ABG OXYGEN SATURATION 99 % (94-100); ABG PCO2 32 MMHG (35-45); ABG PH 7.35 (7.37-7.43); ABG PO2 143 MMHG (79-93); ABG TCO2 18.4 MMOL/L (21.0-31.0); ALLENS TEST YES-POS; INSPIRED O2 2L; VENTILATOR NO
[2020-10-12 15:28] LABS: PATIENT TEMP 96.8
[2020-10-12 15:32] LABS: ALANINE AMINOTRANSFERASE 54 U/L (0-55); ALBUMIN 3.6 GM/DL (3.2-4.5); ALKALINE PHOSPHATASE 200 U/L (40-136); BILIRUBIN,TOTAL 0.8 MG/DL (0.1-1.0); BUN/CREATININE RATIO 16; CALCIUM 9.4 MG/DL (8.5-10.1); CARBON DIOXIDE 16 MMOL/L (21-32); CHLORIDE 111 MMOL/L (98-107); CREATININE SERUM 0.92 MG/DL (0.60-1.30); GFR ESTIMATED > 60; GLUCOSE 123 MG/DL (70-105); POTASSIUM 4.2 MMOL/L (3.6-5.0); SODIUM 140 MMOL/L (135-145); TOTAL PROTEIN 7.6 GM/DL (6.4-8.2)
--- NOTE | 2020-10-12 16:04 | Diagnostic Imaging Report ---
Indication: Shortness of air. Time of exam: 3:40 PM Correlation is made with prior chest 05/02/2018. The heart size is stable. There is significant ectasia and tortuosity of the descending thoracic aorta. There appeared to be patchy infiltrates in both lung bases. Mid and upper lung jackson are clear. No effusion or pneumothorax is detected. Battery pack overlies the left upper chest. Impression: Patchy bibasilar infiltrates consistent with pneumonia. Dictated by: Dictated on workstation # [id number]
--- NOTE | 2020-10-12 16:25 | Diagnostic Imaging Report ---
PROCEDURE: CT head and CT cervical spine without contrast. TECHNIQUE: Multiple contiguous axial images were obtained through the brain and cervical spine without the use of intravenous contrast. Sagittal and coronal reformations through the cervical spine were then performed. Auto Exposure Controls were utilized during the CT exam to meet ALARA standards for radiation dose reduction. INDICATION: Multiple falls. COMPARISON: Correlation is made with recent head CT from 06/04/2019. FINDINGS: CT HEAD: The ventricles and sulci are stable in appearance. No sulcal effacement or midline shift is identified. No acute intra-axial or extra-axial hemorrhage is detected. Cisterns are patent. Visualized paranasal sinuses are clear. There are postop changes of left frontotemporal craniectomy. IMPRESSION: Postop changes. No acute intracranial process is detected. CT CERVICAL SPINE: There is some straightening of the normal cervical lordotic curvature. Minimal anterolisthesis of C4 on C5 is noted. There is significant degenerative disc disease at C5-C6, C6-C7, and C7-T1 levels with significant disc space narrowing and marginal osteophyte formation. No fractures are identified. Prevertebral tissues are within normal limits. Odontoid is intact. IMPRESSION: Cervical spondylosis. No acute bony abnormality is detected. Dictated by: Dictated on workstation # [id number]
--- NOTE | 2020-10-12 16:30 | NUR ---
SPOKE WITH PATIENTS DAUGHTER ABOUT STATUS. SHE IS LEAVING TO GO BACK TO WORK AND WOULD LIKE A CALL WHEN WE HAVE FINAL PLANS
[2020-10-12 17:37] LABS: CLARITY,URINE CLEAR; COLOR,URINE YELLOW; GLUCOSE, URINE (UA) NEGATIVE (NEGATIVE); KETONES,URINE NEGATIVE (NEGATIVE); LEUKOCYTE ESTERASE ,URINE NEGATIVE (NEGATIVE); NITRITE,URINE NEGATIVE (NEGATIVE); PH,URINE 5.5 (5-9); PROTEIN,URINE NEGATIVE (NEGATIVE)
[2020-10-12 17:54] LABS: AMORPHOUS SEDIMENT,UR MOD AMOR URATES /LPF; BACTERIA,URINE TRACE /HPF; BILIRUBIN,URINE 1+ (NEGATIVE); GRANULAR CASTS,URINE RARE /LPF; HYALINE CASTS, URINE 25-50 /LPF
--- NOTE | 2020-10-12 18:06 | NUR ---
SPOKE WITH DAUGHTER TO LET HER KNOW WE ARE ADMITTING THIS PATIENT
--- NOTE | 2020-10-12 18:27 | NUR ---
Report received from Janeth SEXTON, ED regarding patient being admitted to this floor.
--- NOTE | 2020-10-12 18:45 | NUR ---
PJ SKY admitted to room 433-1, with an admitting diagnosis of Failure to Thrive , on 10/12/20 from the emergency department , accompanied by ED staff via cart..PJ SKY introduced to surroundings, call light, bed controls, phone, TV, temperature control, lights, meal times, smoking policy, visitor policy, side rail policy, bathrooms and showers. Patient Rights given to patient in the handbook. PJ SKY verbalizes understanding that [facility] is not responsible for the loss or damage to any personal effects or valuables that are kept in the patients posession during their hospitalization. PJ SKY verbalizes understanding of Interdisciplinary Patient Education. Patient and/or family were informed about the Rapid Response Team and its purpose.
[2020-10-12 18:55] VITALS: BP 127/80
[2020-10-12] MEDS ORDERED: ONDANSETRON 4 MG/2 ML (SDV) Z0FRAN IV PRN (19:00)
[2020-10-12] MEDS ORDERED: ACETAMINOPHEN 325 MG TABLET PO PRN (19:00)
[2020-10-12] MEDS ORDERED: CATHETER FLUSH 10 ML SYR IV PRN (19:00)
[2020-10-12] MEDS: LACTATED RINGERS 1,000 ML IV SCH (20:04)
[2020-10-12] MEDS: inSUlin ASPART (NovoLOG) 1 UNIT/0.01 ML (CHARGE PER UNIT) SC SCH (21:50)
[2020-10-12 23:16] VITALS: BP 122/60
[2020-10-13 04:03] VITALS: BP 130/62
[2020-10-13] MEDS: LACTATED RINGERS 1,000 ML IV SCH ×3 (05:22→19:22)
[2020-10-13] MEDS: inSUlin ASPART (NovoLOG) 1 UNIT/0.01 ML (CHARGE PER UNIT) SC SCH ×4 (05:22→20:28)
[2020-10-13 06:13] LABS: BASOPHILS % (AUTO) 1 % (0-10); EOSINOPHILS # (AUTO) 0.1 10^3/uL (0.0-0.3); EOSINOPHILS % (AUTO) 2 % (0-10); HEMATOCRIT 35 % (40-54); HEMOGLOBIN 11.4 g/dL (13.3-17.7); LYMPHOCYTES # (AUTO) 1.8 10^3/uL (1.0-4.0); LYMPHOCYTES % (AUTO) 35 % (12-44); MEAN CORPUSCULAR HEMOGLOBIN 29 pg (25-34); MEAN CORPUSCULAR HGB CONC 32 g/dL (32-36); MEAN CORPUSCULAR VOLUME 89 fL (80-99); MEAN PLATELET VOLUME 9.2 fL (9.0-12.2); MONOCYTES # (AUTO) 0.6 10^3/uL (0.0-1.0); MONOCYTES % (AUTO) 12 % (0-12); NEUTROPHILS # (AUTO) 2.5 10^3/uL (1.8-7.8); NEUTROPHILS % (AUTO) 50 % (42-75); PLATELET COUNT 232 10^3/uL (130-400)
--- NOTE | 2020-10-13 06:29 | NUR ---
PT HAS NOT VOID SINCE CAME TO THE FLOOR. BLADDER SCAN SHOWING 380 ML. PT IS NOT AN ANY DISCOMFORT. DR GUEVARA NOTIFIED AND ORDER TO WAIT LONGER FOR PT TO PEE
[2020-10-13 06:42] LABS: ALANINE AMINOTRANSFERASE 41 U/L (0-55); ALBUMIN 2.9 GM/DL (3.2-4.5); ALKALINE PHOSPHATASE 171 U/L (40-136); BILIRUBIN,TOTAL 0.4 MG/DL (0.1-1.0); BUN/CREATININE RATIO 16; CALCIUM 8.6 MG/DL (8.5-10.1); CARBON DIOXIDE 17 MMOL/L (21-32); CHLORIDE 114 MMOL/L (98-107); GFR ESTIMATED > 60; GLUCOSE 156 MG/DL (70-105); POTASSIUM 3.6 MMOL/L (3.6-5.0); SODIUM 141 MMOL/L (135-145); TOTAL PROTEIN 5.9 GM/DL (6.4-8.2)
[2020-10-13 08:25] VITALS: BP 121/64
--- NOTE | 2020-10-13 10:50 | Physical Therapy Evaluation ---
PT Evaluation-General Medical Diagnosis Admission Date Oct 12, 2020 at 18:00 Medical Diagnosis: failure to thrive Onset Date: Oct 12, 2020 Therapy Diagnosis Therapy Diagnosis: weakness; abn gait Height/Weight Height (Feet): 6 Height (Inches): 1.00 Weight (Pounds): 265 Weight (Ounces): 0.0 Precautions Precautions/Isolations: Contact Isolation, Droplet Isolation, Fall Prevention COVID isolation Referral Physician: Abebe Reason for Referral: Evaluation/Treatment Medical History Pertinent Medical History: Atrial Fib, Arthritis, CAD, DM, GERD, HTN, IA Current History Admitted to hospital with dx of failure to thrive. Maintaining COVID precautions. Reviewed History: Yes Social History Home: Apartment ([facility]) Current Living Status: Alone Entry Into Home: Level Entry Prior Prior Level of Function SCALE: Activities may be completed with or without assistive devices. 3-Wojscegkyb-xbqcqtr completes the activity by him/herself with no assistance from a helper. 5-Set-up or Clean-up Assistance-helper sets up or cleans up; patient completes activity. [place] assists only prior to or following the activity. 4-Supervision or Touching Assistance-helper provides verbal cues and/or touching/steadying and/or contact guard assistance as patient completes activit y. Assistance may be provided throughout the activity or intermittently. 3-Partial/Moderate Assistance-helper does LESS THAN HALF the effort. [place] lifts, holds or supports trunk or limbs, but provides less than half the effort. 2-Substantial/Maximal Assistance-helper does MORE THAN HALF the effort. [place] lifts or holds trunk or limbs and provides more than half the effort. 3-Jslfwjtmr-rmscfz does ALL the effort. Patient does none of the effort to complete the activity. Or, the assistance of 2 or more helpers is required for the patient to complete the activity. If activity was not attempted, code reason: 7-Patient Refused. 9-Not Applicable-not attempted and the patient did not perform the activity before the current illness, exacerbation or injury. 10-Not Attempted due to Environmental Limitations-(lack of equipment, weather restraints, etc.). 88-Not Attempted due to Medical Conditions or Safety Concerns. Bed Mobility: 6 Transfers (B,C,W/C): 6 Gait: 6 (intermittent use of FWW) Indoor Mobility (Ambulation): Independent PT Evaluation-Current Subjective Agrees to PT. Acknowledges that he has had falls recently. Reports he does not always use the walker. Agrees to sit up in the chair this date. Objective Patient Orientation: Person, Confused, Place, Time, Situation ROM/Strength ROM Lower Extremities WFL Strength Lower Extremities B LE strength is grossly 3/5 Integumentary/Posture Posture Rounded shoulders and forward head. Sensory Vision: Wears Glasses Hearing: Functional Hand Dominance: Right Sensation Right Lower Extremit: Intact Sensation Left Lower Extremity: Intact Transfers Roll Left to Right (QC): 4 Sit to Lying (QC): 3 (min assist with cues for sequencing. ) Sit to Stand (QC): 2 (assist of 2 to come to a stand safely with cues for sequencing; min assist for balance) Chair/Qqn-ri-Kyqsd Xfer(QC): 2 (Assist of 2 for safety but required CGA to complete safely) Balance Sitting Static: Good Sitting Dynamic: Good Standing Static: Fair Standing Dynamic: Fair Treatment Supine to sit EOB to stand to transfer. Used assist of 2 staff as pt unsteady on his feet. Did not necessarily need 2 staff for lifting, but 2 for safety due to decreased funcitonal strength and balance in standing. SPT performed with chair right next to the bed. Pt up in chair post treatment with oxygen in situ and needs met. Nurse present with patient caring for additional needs when this therapist left the room. Assessment/Needs Pt presents with gross LE weakness that limits safety with transfers and impairs functional gait at this time. He has strength and balance deficits that make upright mobility difficult. He well benefit from skilled PT to address strength, balance and safety to allow him to return home as before. Rehab Potential: Fair PT Ticket Dispenser Changer Goals [facility] Goals PT Ticket Dispenser Changer Goals Time Frame: Oct 20, 2020 Sit to Lying (QC): 6 Lying-Sitting on Side/Bed(QC): 6 Sit to Stand (QC): 6 Chair/Jni-xa-Zeywh Xfer(QC): 6 Walk 150 ft (QC): 6 PT Plan Problem List Problem List: Activity Tolerance, Functional Strength, Safety, Balance, Gait, Transfer, Bed Mobility Treatment/Plan Treatment Plan: Continue Plan of Care Treatment Plan: Bed Mobility, Education, Functional Activity Juan José, Functional Strength, Gait, Safety, Therapeutic Exercise, Transfers Treatment Duration: Oct 20, 2020 Frequency: 6 times per week Estimated Hrs Per Day: .25 hour per day Patient and/or Family Agrees t: Yes Safety Risks/Education Patient Education: Safety Issues Teaching Recipient: Patient Teaching Methods: Discussion Response to Teaching: Reinforcement Needed Discharge Recommendations Therapy Discharge Recommendati: Post Acute PT Time/GCodes Time In: 955 Time Out: 1020 Total Billed Treatment Time: 25 Total Billed Treatment visit EVM 15 FA 10 TRENT VEGAS PT Oct 13, 2020 10:50
[2020-10-13 11:05] VITALS: BP 133/66
[2020-10-13] MEDS ORDERED: MELATONIN 3 MG TABLET PO NR (12:32)
--- NOTE | 2020-10-13 13:03 | Occupational Therapy Eval ---
OT Evaluation-General/PLF Medical Diagnosis Admission Date Oct 12, 2020 at 18:00 Medical Diagnosis: failure to thrive Onset Date: Oct 12, 2020 Therapy Diagnosis Therapy Diagnosis: Decreased ADL Height/Weight Height (Feet): 6 Height (Inches): 1.00 Weight (Pounds): 265 Weight (Ounces): 0.0 Precautions Precautions/Isolations: Contact Isolation, Droplet Isolation, Fall Prevention Referral Physician: Abebe Referral Reason: Activity Tolerance, Self Care, Evaluation/Treatment, Strengthening/ROM Medical History Pertinent Medical History: Atrial Fib, Arthritis, CAD, DM, GERD, HTN, NV Current History Pt admits to EMS, h/o falls upon attempt to stand. Pt dx with COVID Reviewed History: Yes Social History Home: Apartment ([facility]) Current Living Status: Alone Entry Into Home: Level Entry ADL-Prior Level of Function SCALE: Activities may be completed with or without assistive devices. 4-Whdngjorpu-aqtasav completes the activity by him/herself with no assistance from a helper. 5-Set-up or Clean-up Assistance-helper sets up or cleans up; patient completes activity. [place] assists only prior to or following the activity. 4-Supervision or Touching Assistance-helper provides verbal cues and/or touching/steadying and/or contact guard assistance as patient completes activit y. Assistance may be provided throughout the activity or intermittently. 3-Partial/Moderate Assistance-helper does LESS THAN HALF the effort. [place] lifts, holds or supports trunk or limbs, but provides less than half the effort. 2-Substantial/Maximal Assistance-helper does MORE THAN HALF the effort. [place] lifts or holds trunk or limbs and provides more than half the effort. 2-Jlihgyksp-dxmgid does ALL the effort. Patient does none of the effort to complete the activity. Or, the assistance of 2 or more helpers is required for the patient to complete the activity. If activity was not attempted, code reason: 7-Patient Refused. 9-Not Applicable-not attempted and the patient did not perform the activity before the current illness, exacerbation or injury. 10-Not Attempted due to Environmental Limitations-(lack of equipment, weather restraints, etc.). 88-Not Attempted due to Medical Conditions or Safety Concerns. ADL PLOF Comments Pt lives alone with no use of AE during ADLs. Has walker. Pt states does not have support at home for help if needed. Self Care: Independent Functional Cognition: Independent DME/Equipment Comments walker Drive Self: Yes OT Current Status Subjective Pt alert/ oriented. Pt very fatigued. States did not sleep last night. Pt states needs sleeping pills to sleep. Requests at this time. Pt educated on OT role/ purpose. Pt denies standing at this time due to fatigue. Denies pain/. SOB Mental Status/Objective Patient Orientation: Normal For Age Attachments: Oxygen Current Hearing Aids: No Dentures/Partials: No Hand Dominance: Left Upper Extremity ROM WFL BUE Upper Extremity Coordination Decreased due to tremors Upper Extremity Sensation WFL, slight neuropathy in LE/ UE Upper Extremity Strength WFL 3+/5 ADL-Treatment Eating (QC): 6 (completes IND though denies food at this time.) Oral Hygiene (QC): 6 (per judgement) On/Off Footwear (QC): 1 (per clinical judgement) Other Treatments Pt in chair. Introduced to OT and role. Pt denies pain, denies SOB. Pt's 02 cannula donned, though at 0L. Pt's 02 at 97% end of session. Pt completes hx and MMT/ ROM. Noted shaking/ tremors with L>R. P states has been occurring for years, does not interfere with meals per pt. Pt given theraband and educated on 3 exercises, pt completes with 5 reps bilaterally. Pt is encouraged to sit upright through day/ move and complete ther ex. Pt agrees. Education OT Patient Education: Correct positioning, Exercise program, Home exercise program, Purpose of tx/functional activities Teaching Recipient: Patient Teaching Methods: Demonstration, Discussion Response to Teaching: Verbalize Understanding, Return Demonstration OT Longterm Goals Longterm Goals Time Frame: Oct 20, 2020 Eating (QC): 6 Oral Hygiene (QC): 6 Toileting Hygiene (QC): 6 Shower/Bathe Self (QC): 6 Upper Body Dressing (QC): 6 Lower Body Dressing (QC): 6 On/Off Footwear (QC): 6 Additional Goals: 1-Demonstrate ADL Tasks, 2-Verbalize Understanding, 3- ImproveStrength/Juan José 1=Demonstrate adherence to instructed precautions during ADL tasks. 2=Patient will verbalize/demonstrate understanding of assistive devices/modifications for ADL. 3=Patient will improve strength/tolerance for activity to enable patient to perform ADL's. OT Education/Plan Problem List/Assessment Assessment: Decreased Activ Tolerance, Decreased UE Strength, Dependent Transfers, Impaired Coordination, Impaired Funct Balance, Impaired I ADL's, Impaired Self-Care Skills Discharge Recommendations Plan/Recommendations: Continue POC Therapy Discharge Recommendati: Home & Family, Post Acute OT Treatment Plan/Plan of Care Treatment,Training & Education: Yes Patient would benefit from OT for education, treatment and training to promote independence in ADL's, mobility, safety and/or upper extremity function for ADL's. Plan of Care: ADL Retraining, Concurrent Therapy, Functional Mobility, UE Funct Exercise/Act, UE Neuromus Re-Ed/Coord Treatment Duration: Oct 20, 2020 Frequency: 5 times per week Estimated Hrs Per Day: .25 hour per day Agreement: Yes Rehab Potential: Fair Time/GCodes Start Time: 10:50 Stop Time: 11:05 Total Time Billed (hr/min): 15 Billed Treatment Time 1, EVM (15) LUMA RODRÍGUEZ OTR Oct 13, 2020 13:03
--- NOTE | 2020-10-13 14:27 | History & Physical-Hospitalist ---
History of Present Illness HPI/Chief Complaint Fidel Henriquez is a 70-year-old male with past medical history of hypertension, diabetes, hyperlipidemia, GERD, BPH, gout, depression, who presented with weakness. He was recently admitted to [facility] with COVID-19. He reportedly had a therapy evaluations which indicated the need for ongoing rehabilitation, but his insurance denied both inpatient rehabilitation and jail facility. He was discharged home and he reports that he has fallen multiple times since going home. Prior to his recent hospitalization, he was living at home alone completely independent. He did not use any assistive devices with ambulation. After this hospital stay, he has been using a walker. Even with this, he was weak and fell to the ground. He denies any head trauma. He denies any shortness of breath or cough. He says he just feels weak. He denies any chest pain. He denies any abdominal pain. He denies any nausea or vomiting. He says he would like to do rehabilitation to gain his strength back. Source: patient Exam Limitations: no limitations Date Seen 10/13/20 Time Seen by a Provider: 11:10 Attending Physician Imani Pacheco MD PCP Nelson Elliott MD Referring Physician Date of Admission Oct 12, 2020 at 18:00 Home Medications & Allergies Home Medications Reviewed patient Home Medication Reconciliation performed by pharmacy medication reconciliations pilot plant technician and/or nursing. Patients Allergies have been reviewed. Allergies Allergies Coded Allergies NKANo Known Allergies (Verified Allergy, Unknown, 07/08/06) Past Iimgiug-Dbmbol-Hcmjsq Hx Past Med/Social Hx: Reviewed Nursing Past Med/Soc Hx Patient Social History Alcohol Use: Denies Use Recreational Drug Use: No Smoking Status: Never a Smoker 2nd Hand Smoke Exposure: No Recent Foreign Travel: No Contact w/other who traveled: No Recent Hopitalizations: Yes (JANUARY 30- R/T LEGS / LEFT SIDED WEAKNESS, COVID 19) Recent Infectious Disease Expo: Yes Immunizations Up To Date Tetanus Booster (TDap): Unknown Seasonal Allergies Seasonal Allergies: No Past Medical History Surgeries: Appendectomy, Neurological, Orthopedic Currently Using CPAP: Yes Cardiac: Heart Attack, Hypertension, Irregular Heartbeat Reproductive: No Genitourinary: Prostate Problems Gastrointestinal: Gall Bladder Disease Musculoskeletal: Arthritis [place]'s disease Endocrine: Diabetes, Non-Insulin dep HEENT: Chronic Ear Infection Loss of Vision: Denies Hearing Impairment: Denies Cancer: Skin Psychosocial: Depression History of Blood Disorders: No Family History Alzheimer's disease 19 MOTHER FH: depression 19 MOTHER Review of Systems Constitutional: weakness EENTM: no symptoms reported Respiratory: no symptoms reported Cardiovascular: no symptoms reported Gastrointestinal: no symptoms reported Genitourinary: no symptoms reported Musculoskeletal: muscle weakness Skin: no symptoms reported Psychiatric/Neurological: No Symptoms Reported Physical Exam Physical Exam Vital Signs Vital Signs - First Documented 10/12/20 14:52 Temp 35.8 Pulse 90 Resp 20 B/P (MAP) 127/80 (96) Pulse Ox 98 O2 Delivery Nasal Cannula O2 Flow Rate 3.00 FiO2 99 Capillary Refill : Less Than 3 Seconds Height, Weight, BMI Height: 6'1.00" Weight: 265lbs. 0.0oz. 120.040215bd; 29.13 BMI Method:Stated General Appearance: No Apparent Distress, WD/WN HEENT: PERRL/EOMI, Pharynx Normal Neck: Normal Inspection, Supple Respiratory: Lungs Clear, Normal Breath Sounds, No Respiratory Distress Cardiovascular: Regular Rate, Rhythm, No Edema, No Murmur Gastrointestinal: Normal Bowel Sounds, Non Tender, Soft Extremity: Normal Inspection, Non Tender, No Pedal Edema Neurologic/Psychiatric: Alert, Oriented x3, No Motor/Sensory Deficits, Normal Mood/Affect Skin: Normal Color, Warm/Dry Results Results/Procedures Labs Laboratory Tests 10/12/20 14:52 10/13/20 05:59 Patient resulted labs reviewed. Imaging: Reviewed Imaging Report Assessment/Plan Admission Diagnosis Debility Admission Status: Observation Assessment and Plan Debility Recent COVID pneumonia PT/OT Would benefit from inpatient rehabilitation or jail for ongoing therapies Social work consulted, appreciate assistance HTN T2DM HLD GERD BPH Gout Depression Continue home meds after med rec completed DVT Prophylaxis: Lovenox Diagnosis/Problems Diagnosis/Problems (1) Physical debility Status: Acute (2) History of pneumonia Status: Acute Clinical Quality Measures DVT/VTE Risk/Contraindication: Risk Factor Score Per Nursin RFS Level Per Nursing on Admit: 2=Moderate IMANI PACHECO MD Oct 13, 2020 14:27
--- NOTE | 2020-10-13 15:14 | NUR ---
"RD ASSESSMENT PMHx: COPD; HTN; DM PT INTERACTION: Note pt is currently in COVID isolation, per chart review. Note all diet information for consult for MST score is per Florentin RN or per chart review. Florentin states pt current appetite appears poor. Note avg PO intake 38% x2meal, per chart review. Florentin states no issues with nausea, vomiting, constipation, or diarrhea that he is aware of. Note no BM has been recorded, and pt not currently on bowel regimen per chart review. Note unable to determine recent wt hx, per chart review. Note unable to determine current level of DM management and note unable to determine recent HbA1c, per chart review. Note unable to conduct visual assessment of pt d/t isolation status. Note unable to determine if pt meets criteria for malnutrition per ASPEN guidelines at this time. ABNORMAL NUTRITION-RELATED LAB VALUES LOW: Pro 5.9; alb 2.9; HIGH: Cl 114; glu 156; AST 47; alkphos 171 Est. kcal needs: 2609-8560 kcal | 20-25 kcal/kg Est. Pro needs: 80-100 g Pro | 0.8-1.0 g Pro/kg PES STATEMENT: Inadequate oral intake (NI-2.1) related to loss of appetite as evidenced by chart review, communication with RN, and avg PO intake 38% x2meal. INTERVENTION: Continue with current diet order of CHO 60g/m 3snack diet. Switch current supplementation order of Ensure Enlive with meals TID to Glucerna (vary) with meals TID, for increased kcal intake and better glucose control. Glucerna provides 220 kcal and 10 g Pro per serving. Did not offer diet education on DM management, d/t COVID isolation. Will continue to follow and reassess as pt needs, intake, and status change. David Bashir, MS RD LD"
[2020-10-13 15:27] VITALS: BP 119/57
[2020-10-13] MEDS ORDERED: MIRT30TA6 PO (15:43)
[2020-10-13] MEDS ORDERED: DULO60CA59 PO (15:43)
[2020-10-13] MEDS ORDERED: CITA20TA9 PO (15:43)
[2020-10-13] MEDS ORDERED: INSU100I14 SC (15:43)
[2020-10-13] MEDS ORDERED: INSU100I29 SC (15:43)
--- NOTE | 2020-10-13 15:47 | NUR ---
CALLED THE PTS ROOM AND SPOKE WITH THE PT, WHEN I EXPLAINED WHY I WAS CALLING THE PT LET ME KNOW HE CANT REMEMBER ANYTHING ABOUT HIS MEDS BUT HE DID HAVE HIS MEDS WITH HIM IN THE ROOM. I ALSO WENT THRU THE EXT MED HISTORY AND GOT A MED LIST FROM [facility] TO COMPLETE THE MED REC AT 1530 THE AID WENT IN THE PTS ROOM DUE TO SHIFT CHANGE AND TO CHECK VITALS, AT THAT TIME I HAD THE AID GET THE MED BOTTLES AND SET THEM ON THE DIRTY CART OUTSIDE THE ROOM. THE PT DID NOT BRING THE FOLLOWING HOME MEDS WITH HIM - LISINOPRIL, NITRO TABS, POTASSIUM AND TORSEMIDE. ON 10-12-2020 [facility] FILLED XANAX 0.5MG #15 HOWEVER WHEN I ASKED THE PT ABOUT THIS MEDICATION HE SEEMED CONFUSED AND DOESNT REMEMBER TAKING- FOR THIS REASON I DID NOT INCLUDE IT ON THE MED REC I ALSO ASKED THE PT IF HE TAKES DULOXETINE AND CITALOPRAM AT THE SAME TIME DAILY, AND THE PT WASNT SURE AND SAID HE THOUGHT IT DID
[2020-10-13] MEDS: ENOXAPARIN 40 MG/0.4 ML (LOVENOX) SYR SC SCH (17:26)
[2020-10-13 20:18] VITALS: BP 162/78
[2020-10-13] MEDS ORDERED: ONDANSETRON 4 MG/2 ML (SDV) Z0FRAN IV PRN (20:45)
[2020-10-13] MEDS ORDERED: BISACODYL 10 MG SUPP (DULCOLAX) PR PRN (20:45)
[2020-10-13] MEDS ORDERED: polyethylene glycoL POWDER 17 GM (MIRALAX) PACK PO PRN (20:45)
[2020-10-13] MEDS ORDERED: ANTACID SUSP 30 ML UDC (MYLANTA) PO PRN (20:45)
[2020-10-13] MEDS ORDERED: ONDANSETRON 4 MG (ZOFRAN) ORAL DISSOLVE TAB PO PRN (20:45)
[2020-10-13] MEDS ORDERED: MELATONIN 3 MG TABLET ONE (21:00)
[2020-10-13] MEDS ORDERED: ACETAMINOPHEN 325 MG TABLET ONE (21:00)
[2020-10-13] MEDS: SENNOSIDES 8.6 MG (SENOKOT) TAB PO SCH (21:05)
[2020-10-13] MEDS: DOCUSATE SODIUM 100 MG (COLACE) CAP PO SCH (21:05)
[2020-10-13] MEDS: ACETAMINOPHEN 325 MG TABLET PO PRN (21:08)
[2020-10-13] MEDS: MELATONIN 3 MG TABLET PO PRN (21:08)
[2020-10-14] VITALS (7 sets, daily range): BP systolic 108–150; BP diastolic 63–74
[2020-10-14] MEDS: inSUlin ASPART (NovoLOG) 1 UNIT/0.01 ML (CHARGE PER UNIT) SC SCH ×4 (05:59→20:30)
[2020-10-14] MEDS: DOCUSATE SODIUM 100 MG (COLACE) CAP PO SCH ×2 (09:33→19:20)
[2020-10-14] MEDS: SENNOSIDES 8.6 MG (SENOKOT) TAB PO SCH ×2 (09:34→19:21)
--- NOTE | 2020-10-14 11:06 | NUR ---
Dr. Lomas requested the patient to be moved to a different room and be placed on standard precautions. Notified merchandise flow team leader at this time.
--- NOTE | 2020-10-14 13:31 | Physical Therapy Daily Note ---
PT Daily Note-Current Subjective Pt. in bedside chair, says he is very tired, agrees to LE exercises only. Transfers SCALE: Activities may be completed with or without assistive devices. 2-Karslkghog-jwjqbwt completes the activity by him/herself with no assistance from a helper. 5-Set-up or Clean-up Assistance-helper sets up or cleans up; patient completes activity. [place] assists only prior to or following the activity. 4-Supervision or Touching Assistance-helper provides verbal cues and/or touching/steadying and/or contact guard assistance as patient completes activity. Assistance may be provided throughout the activity or intermittently. 3-Partial/Moderate Assistance-helper does LESS THAN HALF the effort. [place] lifts, holds or supports trunk or limbs, but provides less than half the effort. 2-Substantial/Maximal Assistance-helper does MORE THAN HALF the effort. [place] lifts or holds trunk or limbs and provides more than half the effort. 5-Molmmayxi-vrqtnv does ALL the effort. Patient does none of the effort to complete the activity. Or, the assistance of 2 or more helpers is required for the patient to complete the activity. If activity was not attempted, code reason: 7-Patient Refused. 9-Not Applicable-not attempted and the patient did not perform the activity before the current illness, exacerbation or injury. 10-Not Attempted due to Environmental Limitations-(lack of equipment, weather restraints, etc.). 88-Not Attempted due to Medical Conditions or Safety Concerns. Exercises Seated Therapy Exercises: Ankle pumps, Long arc quads, Hip flexion, Hip abd/add Seated Reps: 15 Treatments LE exercises Assessment Current Status: Fair Progress Pt. is very weak in LE's and fatigues quickly with exercises. Pt. requested assistance putting on Bipap when completed with exercises. Pt. up in bedside chair with bipap in place, call light and all needs met. PT Custodial Goals Custodial Goals PT Command Center Analyst Goals Time Frame: Oct 20, 2020 Sit to Lying (QC): 6 Lying-Sitting on Side/Bed(QC): 6 Sit to Stand (QC): 6 Chair/Fcb-mb-Npnsc Xfer(QC): 6 Walk 150 ft (QC): 6 PT Plan Treatment/Plan Treatment Plan: Continue Plan of Care Treatment Plan: Bed Mobility, Education, Functional Activity Juan José, Functional Strength, Gait, Safety, Therapeutic Exercise, Transfers Treatment Duration: Oct 20, 2020 Frequency: 6 times per week Estimated Hrs Per Day: .25 hour per day Patient and/or Family Agrees t: Yes Time/GCodes Time In: 1216 Time Out: 1225 Total Billed Treatment Time: 9 Total Billed Treatment 1, Ex 9' FROY MCALLISTER PT Oct 14, 2020 13:31
--- NOTE | 2020-10-14 13:43 | Progress Note - Hospitalist ---
Subjective HPI/CC On Admission Date Seen by Provider: Oct 14, 2020 Time Seen by Provider: 09:40 Fidel Henriquez is a 70-year-old male with past medical history of hypertension, diabetes, hyperlipidemia, GERD, BPH, gout, depression, who presented with weakness. He was recently admitted to [facility] with COVID-19. He reportedly had a therapy evaluations which indicated the need for ongoing rehabilitation, but his insurance denied both inpatient rehabilitation and [facility] facility. He was discharged home and he reports that he has fallen multiple times since going home. Prior to his recent hospitalization, he was living at home alone completely independent. He did not use any assistive devices with ambulation. After this hospital stay, he has been using a walker. Even with this, he was weak and fell to the ground. He denies any head trauma. He denies any shortness of breath or cough. He says he just feels weak. He de nies any chest pain. He denies any abdominal pain. He denies any nausea or vomiting. He says he would like to do rehabilitation to gain his strength back. Subjective/Events-last exam He is still feeling weak. He had no other complaints or concerns. He denies shortness of breath and cough. He denies pain. Objective Exam Vital Signs Vital Signs Date Time Temp Pulse Resp B/P (MAP) Pulse Ox O2 Delivery O2 Flow Rate FiO2 10/14/20 08:00 36.0 57 18 134/63 (86) 96 NIV CPAP 1.00 10/12/20 14:52 99 Capillary Refill : Less Than 3 Seconds General Appearance: No Apparent Distress, WD/WN Respiratory: Lungs Clear, Normal Breath Sounds, No Respiratory Distress Cardiovascular: Regular Rate, Rhythm, No Edema, No Murmur Gastrointestinal: Normal Bowel Sounds, Non Tender, Soft Extremity: Normal Inspection, Non Tender, No Pedal Edema Neurologic/Psychiatric: Alert, Oriented x3, Depressed Affect, Motor Weakness Skin: Normal Color, Warm/Dry Results/Procedures Lab Patient resulted labs reviewed. Imaging: Reviewed Imaging Report Assessment/Plan Assessment and Plan Assess & Plan/Chief Complaint Debility Recent COVID pneumonia PT/OT Would benefit from inpatient rehabilitation or [facility] for ongoing therapies Social work consulted, appreciate assistance T2DM Levemir SSI HTN HLD GERD BPH Gout Depression Continue home meds DVT Prophylaxis: Lovenox Diagnosis/Problems Diagnosis/Problems (1) Physical debility Status: Acute (2) History of pneumonia Status: Acute Clinical Quality Measures DVT/VTE Risk/Contraindication: Risk Factor Score Per Nursin RFS Level Per Nursing on Admit: 2=Moderate MARLEY PACHECO MD Oct 14, 2020 13:43
[2020-10-14] MEDS ORDERED: lisINopril 10 MG (PRINIVIL) TABLET PO PRN (13:45)
[2020-10-14] MEDS: ENOXAPARIN 40 MG/0.4 ML (LOVENOX) SYR SC SCH (14:40)
[2020-10-14] MEDS: GABAPENTIN 400 MG (NEURONTIN) CAP PO SCH ×2 (14:40→21:40)
[2020-10-14] MEDS: MIRTAZAPINE 15 MG (REMERON) TAB PO SCH (20:44)
[2020-10-14] MEDS: MELATONIN 3 MG TABLET PO PRN (20:45)
[2020-10-14] MEDS: BACLOFEN 10 MG (LIORESAL) TAB PO SCH (20:45)
[2020-10-15 04:09] VITALS: BP 111/59
[2020-10-15] MEDS: inSUlin ASPART (NovoLOG) 1 UNIT/0.01 ML (CHARGE PER UNIT) SC SCH ×4 (06:01→20:55)
[2020-10-15] MEDS: GABAPENTIN 400 MG (NEURONTIN) CAP PO SCH ×3 (06:11→21:59)
[2020-10-15 08:00] VITALS: BP 130/61
[2020-10-15] MEDS: DOCUSATE SODIUM 100 MG (COLACE) CAP PO SCH ×2 (08:15→20:16)
[2020-10-15] MEDS: SENNOSIDES 8.6 MG (SENOKOT) TAB PO SCH ×2 (08:15→20:16)
[2020-10-15] MEDS: ALLOPURINOL 100 MG (ZYLOPRIM) TAB PO SCH (09:02)
[2020-10-15] MEDS: BACLOFEN 10 MG (LIORESAL) TAB PO SCH ×3 (09:02→20:15)
[2020-10-15] MEDS: DULoxetine 30 MG (CYMBALTA) CAP PO SCH (09:02)
[2020-10-15] MEDS: FINASTERIDE (PROSCAR) 5 MG TAB PO SCH (09:02)
[2020-10-15] MEDS: PANTOPRAZOLE 20 MG TABLET (PROTONIX) PO SCH (09:02)
[2020-10-15] MEDS: TORSEMIDE 20 MG (DEMADEX) TAB PO SCH (09:02)
[2020-10-15] MEDS: ACETAMINOPHEN 325 MG TABLET PO PRN (11:28)
[2020-10-15 12:00] VITALS: BP 132/82
--- NOTE | 2020-10-15 13:20 | Progress Note - Hospitalist ---
Subjective HPI/CC On Admission Date Seen by Provider: Oct 15, 2020 Time Seen by Provider: 11:10 Fidel Henriquez is a 70-year-old male with past medical history of hypertension, diabetes, hyperlipidemia, GERD, BPH, gout, depression, who presented with weakness. He was recently admitted to [facility] with COVID-19. He reportedly had a therapy evaluations which indicated the need for ongoing rehabilitation, but his insurance denied both inpatient rehabilitation and prison facility. He was discharged home and he reports that he has fallen multiple times since going home. Prior to his recent hospitalization, he was living at home alone completely independent. He did not use any assistive devices with ambulation. After this hospital stay, he has been using a walker. Even with this, he was weak and fell to the ground. He denies any head trauma. He denies any shortness of breath or cough. He says he just feels weak. He de nies any chest pain. He denies any abdominal pain. He denies any nausea or vomiting. He says he would like to do rehabilitation to gain his strength back. Subjective/Events-last exam He reports headache. He reports bilateral foot pain. He has no other complaints or concerns. He has a tremor which he says is new since his COVID diagnosis. Objective Exam Vital Signs Vital Signs Date Time Temp Pulse Resp B/P (MAP) Pulse Ox O2 Delivery O2 Flow Rate FiO2 10/15/20 08:20 Nasal Cannula 3.00 10/15/20 08:00 35.4 58 20 130/61 (84) 96 10/12/20 14:52 99 Capillary Refill : Less Than 3 Seconds General Appearance: No Apparent Distress, WD/WN Respiratory: Lungs Clear, Normal Breath Sounds, No Respiratory Distress Cardiovascular: Regular Rate, Rhythm, No Edema, No Murmur Gastrointestinal: Normal Bowel Sounds, Non Tender, Soft Extremity: Normal Inspection, Non Tender, No Pedal Edema Neurologic/Psychiatric: Alert, Oriented x3, Other (pill-rolling tremor, cog- wheel rigidity upper extremities, speaking with stutter) Results/Procedures Lab Patient resulted labs reviewed. Imaging: Reviewed Imaging Report Assessment/Plan Assessment and Plan Assess & Plan/Chief Complaint Debility Recent COVID pneumonia PT/OT Would benefit from inpatient rehabilitation or prison for ongoing therapies Social work consulted, appreciate assistance Parkinsonism Likely Parkinson's disease Begin Sinemet Outpatient neurology referral T2DM Levemir SSI АНДРЕЙ CPAP HTN HLD GERD BPH Gout Depression Continue home meds DVT Prophylaxis: Lovenox Diagnosis/Problems Diagnosis/Problems (1) Physical debility Status: Acute (2) History of pneumonia Status: Acute (3) Parkinsonism after infection Status: Acute Clinical Quality Measures DVT/VTE Risk/Contraindication: Risk Factor Score Per Nursin RFS Level Per Nursing on Admit: 2=Moderate MARLEY PACHECO MD Oct 15, 2020 13:20
[2020-10-15] MEDS: SINEMET 10/100 (CARBIDOPA/LEVADOPA) TAB PO SCH ×2 (14:46→15:33)
--- NOTE | 2020-10-15 14:47 | NUR ---
Pharmacy notified this rn that they are unable to get sinemet 10/100 for pt. Pharmacy attempted to order med and it is unavailable. Pharmacist Gary minaya, said they do have 25/[address] Lomas notified, awaiting response.
[2020-10-15 15:28] VITALS: BP 133/81
[2020-10-15] MEDS: ENOXAPARIN 40 MG/0.4 ML (LOVENOX) SYR SC SCH (15:33)
[2020-10-15 19:38] VITALS: BP 117/64
[2020-10-15] MEDS: MIRTAZAPINE 15 MG (REMERON) TAB PO SCH (20:15)
[2020-10-15] MEDS: MELATONIN 3 MG TABLET PO PRN (20:15)
[2020-10-15 23:53] VITALS: BP 122/60
[2020-10-16] MEDS: inSUlin ASPART (NovoLOG) 1 UNIT/0.01 ML (CHARGE PER UNIT) SC SCH ×4 (05:33→20:58)
[2020-10-16] MEDS: GABAPENTIN 400 MG (NEURONTIN) CAP PO SCH ×3 (06:11→20:58)
[2020-10-16] MEDS: DOCUSATE SODIUM 100 MG (COLACE) CAP PO SCH ×2 (07:52→20:57)
[2020-10-16] MEDS: SENNOSIDES 8.6 MG (SENOKOT) TAB PO SCH ×2 (07:54→20:58)
[2020-10-16 08:00] VITALS: BP 115/64
[2020-10-16] MEDS: PANTOPRAZOLE 20 MG TABLET (PROTONIX) PO SCH (10:26)
[2020-10-16] MEDS: DULoxetine 30 MG (CYMBALTA) CAP PO SCH (10:26)
[2020-10-16] MEDS: FINASTERIDE (PROSCAR) 5 MG TAB PO SCH (10:26)
[2020-10-16] MEDS: TORSEMIDE 20 MG (DEMADEX) TAB PO SCH (10:27)
[2020-10-16] MEDS: BACLOFEN 10 MG (LIORESAL) TAB PO SCH ×3 (10:27→20:57)
[2020-10-16] MEDS: ALLOPURINOL 100 MG (ZYLOPRIM) TAB PO SCH (10:28)
--- NOTE | 2020-10-16 11:24 | Occupational Ther Daily Note ---
OT Current Status-Daily Note Subjective Pt alert, lying in bed. Pt agrees to therapy. No c/o pain. Pt reports shaking and decreased mobility began since he had Covid. Mental Status/Objective Patient Orientation: Person, Place, Time, Situation Attachments: IV ADL-Treatment Pt able to complete oral care after supplies were gathered. Supine to EOB, SBA. EOB independent. Able to place and use urinal then assist to empty urinal. Oral care independent after supplies gathered. Pt able to don socks and shoes after setup. PT OT co-treat ([id number]) with ambulation and transfers due to decreased mobility, increased tremors and overall weakness. Assist x2 for ambulation and transfer, pt had multiple times of knees buckling and required minimal assistance for FWW manipulation. After therapy, pt sitting in recliner with call light/phone in reach. Physician in room. Therapy Code Descriptions/Definitions Functional [place] Measure: 0=Not Assessed/NA 4=Minimal Assistance 1=Total Assistance 5=Supervision or Setup 2=Maximal Assistance 6=Modified [place] 3=Moderate Assistance 7=Complete IndependenceSCALE: Activities may be completed with or without assistive devices. 7-Wgvpelfcrb-whbgtnm completes the activity by him/herself with no assistance from a helper. 5-Set-up or Clean-up Assistance-helper sets up or cleans up; patient completes activity. [place] assists only prior to or following the activity. 4-Supervision or Touching Assistance-helper provides verbal cues and/or touching/steadying and/or contact guard assistance as patient completes activi ty. Assistance may be provided throughout the activity or intermittently. 3-Partial/Moderate Assistance-helper does LESS THAN HALF the effort. [place] lifts, holds or supports trunk or limbs, but provides less than half the effort. 2-Substantial/Maximal Assistance-helper does MORE THAN HALF the effort. [place] lifts or holds trunk or limbs and provides more than half the effort. 2-Quqdjnlre-iogklr does ALL the effort. Patient does none of the effort to complete the activity. Or, the assistance of 2 or more helpers is required for the patient to complete the activity. If activity was not attempted, code reason: 7-Patient Refused. 9-Not Applicable-not attempted and the patient did not perform the activity before the current illness, exacerbation or injury. 10-Not Attempted due to Environmental Limitations-(lack of equipment, weather restraints, etc.). 88-Not Attempted due to Medical Conditions or Safety Concerns. Oral Hygiene (QC): 5 On/Off Footwear: 5 OT Snf Goals Forging Engineer Goals Time Frame: Oct 20, 2020 Eating (QC): 6 Oral Hygiene (QC): 6 Toileting Hygiene (QC): 6 Shower/Bathe Self (QC): 6 Upper Body Dressing (QC): 6 Lower Body Dressing (QC): 6 On/Off Footwear (QC): 6 Additional Goals: 1-Demonstrate ADL Tasks, 2-Verbalize Understanding, 3- ImproveStrength/Juan José 1=Demonstrate adherence to instructed precautions during ADL tasks. 2=Patient will verbalize/demonstrate understanding of assistive devices/modifications for ADL. 3=Patient will improve strength/tolerance for activity to enable patient to perform ADL's. OT Education/Plan Problem List/Assessment Assessment: Decreased Activ Tolerance, Decreased UE Strength, Impaired Coordination, Impaired Funct Balance, Impaired Self-Care Skills Discharge Recommendations Plan/Recommendations: Continue POC Treatment Plan/Plan of Care Patient would benefit from OT for education, treatment and training to promote independence in ADL's, mobility, safety and/or upper extremity function for ADL's. Plan of Care: ADL Retraining, Concurrent Therapy, Functional Mobility, UE Funct Exercise/Act, UE Neuromus Re-Ed/Coord Treatment Duration: Oct 20, 2020 Frequency: 5 times per week Estimated Hrs Per Day: .25 hour per day Agreement: Yes Rehab Potential: Fair Time/GCodes Start Time: 11:00 Stop Time: 11:18 Total Time Billed (hr/min): 18 Billed Treatment Time 1 visit-FA 1 (18 min) TRENT VALENTE Oct 16, 2020 11:24
--- NOTE | 2020-10-16 11:32 | Progress Note - Hospitalist ---
Subjective HPI/CC On Admission Date Seen by Provider: Oct 16, 2020 Time Seen by Provider: 11:27 Fidel Henriquez is a 70-year-old male with past medical history of hypertension, diabetes, hyperlipidemia, GERD, BPH, gout, depression, who presented with weakness. He was recently admitted to [facility] with COVID-19. He reportedly had a therapy evaluations which indicated the need for ongoing rehabilitation, but his insurance denied both inpatient rehabilitation and fci facility. He was discharged home and he reports that he has fallen multiple times since going home. Prior to his recent hospitalization, he was living at home alone completely independent. He did not use any assistive devices with ambulation. After this hospital stay, he has been using a walker. Even with this, he was weak and fell to the ground. He denies any head trauma. He denies any shortness of breath or cough. He says he just feels weak. He de nies any chest pain. He denies any abdominal pain. He denies any nausea or vomiting. He says he would like to do rehabilitation to gain his strength back. Subjective/Events-last exam Pt reports doing better but still feeling very weak. I was in the room while PT was working with him and he was able to walk to the door and back to his chair with significant help. Objective Exam Vital Signs Vital Signs Date Time Temp Pulse Resp B/P (MAP) Pulse Ox O2 Delivery O2 Flow Rate FiO2 10/16/20 09:47 NIV CPAP 1.00 10/16/20 08:00 35.4 62 16 115/64 (81) 94 10/12/20 14:52 99 Capillary Refill : Less Than 3 Seconds General Appearance: No Apparent Distress, Chronically ill, Obese Respiratory: Lungs Clear, No Respiratory Distress Cardiovascular: Regular Rate, Rhythm, No Murmur Gastrointestinal: Normal Bowel Sounds, Non Tender, Soft Neurologic/Psychiatric: Alert, Oriented x3 Results/Procedures Lab Patient resulted labs reviewed. Imaging: Reviewed Imaging Report Assessment/Plan Assessment and Plan Assess & Plan/Chief Complaint Debility Recent COVID pneumonia PT/OT Would benefit from inpatient rehabilitation or fci for ongoing therapies as insurance declined both of these during his last hospital stay this month and he has rebounded in worse condition Referral sent and awaiting approval from insurance Social work consulted, appreciate assistance Parkinsonism Likely Parkinson's disease Continue Sinemet Outpatient neurology referral T2DM Levemir SSI АНДРЕЙ CPAP HTN HLD GERD BPH Gout Depression Continue home meds DVT Prophylaxis: Lovenox Clinical Quality Measures DVT/VTE Risk/Contraindication: Risk Factor Score Per Nursin RFS Level Per Nursing on Admit: 2=Moderate BRIANNE HAIDER MD Oct 16, 2020 11:32
--- NOTE | 2020-10-16 11:59 | Physical Therapy Daily Note ---
PT Daily Note-Current Subjective Patient agrees to PT. He reports his shaking and decreased mobility began since he had Covid. Mental Status Patient Orientation: Normal For Age Transfers SCALE: Activities may be completed with or without assistive devices. 7-Lsznxjpqjj-tjzyhnb completes the activity by him/herself with no assistance from a helper. 5-Set-up or Clean-up Assistance-helper sets up or cleans up; patient completes activity. [place] assists only prior to or following the activity. 4-Supervision or Touching Assistance-helper provides verbal cues and/or touching/steadying and/or contact guard assistance as patient completes activity. Assistance may be provided throughout the activity or intermittently. 3-Partial/Moderate Assistance-helper does LESS THAN HALF the effort. [place] lifts, holds or supports trunk or limbs, but provides less than half the effort. 2-Substantial/Maximal Assistance-helper does MORE THAN HALF the effort. [place] lifts or holds trunk or limbs and provides more than half the effort. 2-Wcjrqanah-qswlwh does ALL the effort. Patient does none of the effort to complete the activity. Or, the assistance of 2 or more helpers is required for the patient to complete the activity. If activity was not attempted, code reason: 7-Patient Refused. 9-Not Applicable-not attempted and the patient did not perform the activity before the current illness, exacerbation or injury. 10-Not Attempted due to Environmental Limitations-(lack of equipment, weather restraints, etc.). 88-Not Attempted due to Medical Conditions or Safety Concerns. Lying to Sitting/Side of Bed(Q: 5 Sit to Stand (QC): 1 (x 2) Chair/Rvs-tn-Zmfkh Xfer(QC): 1 (x 2) Gait Training Does the Patient Walk?: Yes Distance: 40' Walk 10 feet (QC): 1 (x 2) Gait Assistive Device: FWW severely ataxic/athetoid movement Assessment PT/OT cotreat due to complexity of patient status. Patient demonstrates severe ataxia with gait training with FWW with severely diminished motor planning. PT Manager Adobe Goals Manager Adobe Goals PT [facility] Goals Time Frame: Oct 20, 2020 Sit to Lying (QC): 6 Lying-Sitting on Side/Bed(QC): 6 Sit to Stand (QC): 6 Chair/Dqa-ls-Kggkr Xfer(QC): 6 Walk 150 ft (QC): 6 PT Plan Treatment/Plan Treatment Plan: Continue Plan of Care Treatment Plan: Bed Mobility, Education, Functional Activity Juan José, Functional Strength, Gait, Safety, Therapeutic Exercise, Transfers Treatment Duration: Oct 20, 2020 Frequency: 6 times per week Estimated Hrs Per Day: .25 hour per day Patient and/or Family Agrees t: Yes Time/GCodes Time In: 1106 Time Out: 1118 Total Billed Treatment Time: 12 Total Billed Treatment 1 visit GT 12 min ARMIDA CARDOSO PT Oct 16, 2020 11:59
--- NOTE | 2020-10-16 15:00 | NUR ---
Contacted by [facility] staff Tierney. Tierney reports that [employer] just reached out to her to let her know that Tierney's request for shelter placement on patient Fidel Henriquez has been moved to the nurses que. This sounds to me like the nurse is just now reviewing for SNF auth vs denial. Will await [employer]'s determination. Patient was originally at [facility] for an acute illness where he had a 3 midnight inpatient stay. He was denied by [employer] for Inpatient Rehabiliation and also for residential home placement. He was ultimately discharged to his home where he again fell d/t extreme weakness s/p COVID. He then admitted observation status to our hospital where he continues to have weakness related to s/p COVID. Patient continues in observation status x4 midnight d/t authorization has not been received by [employer] for shelter home placement.
[2020-10-16] MEDS: SINEMET 25/100 (CARBIDOPA/LEVODOPA) TAB PO SCH ×2 (15:08→17:08)
[2020-10-16] MEDS: ENOXAPARIN 40 MG/0.4 ML (LOVENOX) SYR SC SCH (15:08)
[2020-10-16 16:14] VITALS: BP 120/66
[2020-10-16] MEDS: MELATONIN 3 MG TABLET PO PRN (20:57)
[2020-10-16] MEDS: MIRTAZAPINE 15 MG (REMERON) TAB PO SCH (20:58)
[2020-10-17] VITALS: BP 118/60
[2020-10-17] MEDS: inSUlin ASPART (NovoLOG) 1 UNIT/0.01 ML (CHARGE PER UNIT) SC SCH ×4 (05:44→21:47)
[2020-10-17] MEDS: GABAPENTIN 400 MG (NEURONTIN) CAP PO SCH ×3 (06:32→22:01)
[2020-10-17 08:00] VITALS: BP 120/67
[2020-10-17] MEDS: TORSEMIDE 20 MG (DEMADEX) TAB PO SCH (08:29)
[2020-10-17] MEDS: DULoxetine 30 MG (CYMBALTA) CAP PO SCH (08:29)
[2020-10-17] MEDS: PANTOPRAZOLE 20 MG TABLET (PROTONIX) PO SCH (08:29)
[2020-10-17] MEDS: FINASTERIDE (PROSCAR) 5 MG TAB PO SCH (08:29)
[2020-10-17] MEDS: ALLOPURINOL 100 MG (ZYLOPRIM) TAB PO SCH (08:29)
[2020-10-17] MEDS: DOCUSATE SODIUM 100 MG (COLACE) CAP PO SCH ×2 (08:29→21:51)
[2020-10-17] MEDS: SINEMET 25/100 (CARBIDOPA/LEVODOPA) TAB PO SCH ×3 (08:30→16:52)
[2020-10-17] MEDS: BACLOFEN 10 MG (LIORESAL) TAB PO SCH ×4 (08:30→21:56)
[2020-10-17] MEDS: SENNOSIDES 8.6 MG (SENOKOT) TAB PO SCH ×2 (08:30→21:51)
--- NOTE | 2020-10-17 09:38 | NUR ---
CM/SS follow up. CM/SS secure emailed Tierney updated clinical, PT, and OT progress notes. CM/SS visited with patient to give an update. Still awaiting acceptance/denial from [employer] insurance. Addendum: 10/17/20 at 1500 by NEO SALGADO SS CM/SS followed up with Tierney. She reported that she is in direct contact with an [employer] worker who she emailed clinical to. They also discussed the [employer] pre-authorization that has recently been started. CM/SS will continue to follow with Tierney.
--- NOTE | 2020-10-17 09:49 | Physical Therapy Daily Note ---
PT Daily Note-Current Subjective Patient is in bed and agrees to PT. Mental Status Patient Orientation: Normal For Age Transfers SCALE: Activities may be completed with or without assistive devices. 3-Grzcrnszab-gjwuvzz completes the activity by him/herself with no assistance from a helper. 5-Set-up or Clean-up Assistance-helper sets up or cleans up; patient completes activity. [place] assists only prior to or following the activity. 4-Supervision or Touching Assistance-helper provides verbal cues and/or touching/steadying and/or contact guard assistance as patient completes activity. Assistance may be provided throughout the activity or intermittently. 3-Partial/Moderate Assistance-helper does LESS THAN HALF the effort. [place] lifts, holds or supports trunk or limbs, but provides less than half the effort. 2-Substantial/Maximal Assistance-helper does MORE THAN HALF the effort. [place] lifts or holds trunk or limbs and provides more than half the effort. 3-Cbnnbfisb-fkfixk does ALL the effort. Patient does none of the effort to complete the activity. Or, the assistance of 2 or more helpers is required for the patient to complete the activity. If activity was not attempted, code reason: 7-Patient Refused. 9-Not Applicable-not attempted and the patient did not perform the activity before the current illness, exacerbation or injury. 10-Not Attempted due to Environmental Limitations-(lack of equipment, weather restraints, etc.). 88-Not Attempted due to Medical Conditions or Safety Concerns. Roll Left & Right (QC): 6 Sit to Lying (QC): 5 Lying to Sitting/Side of Bed(Q: 2 Sit to Stand (QC): 2 Chair/Kzj-ft-Hvzum Xfer(QC): 2 Gait Training Does the Patient Walk?: Yes Distance: 75' Walk 10 feet (QC): 2 Walk 50 ft with 2 Turns(QC): 2 Gait Assistive Device: FWW ataxic with noted quad weakness Exercises Supine Ex: Ankle pumps, Quad Set, Heel Slides, Straight leg raise (AAROM) Seated Therapy Exercises: Long arc quads, Hip flexion Seated Reps: 15 Assessment Noted decrease in tremors, however, continued ataxic gait and mobility. PT Cost Report Clerk Goals [facility] Goals PT [facility] Goals Time Frame: Oct 20, 2020 Sit to Lying (QC): 6 Lying-Sitting on Side/Bed(QC): 6 Sit to Stand (QC): 6 Chair/Kos-oq-Lacwr Xfer(QC): 6 Walk 150 ft (QC): 6 PT Plan Treatment/Plan Treatment Plan: Continue Plan of Care Treatment Plan: Bed Mobility, Education, Functional Activity Juan José, Functional Strength, Gait, Safety, Therapeutic Exercise, Transfers Treatment Duration: Oct 20, 2020 Frequency: 6 times per week Estimated Hrs Per Day: .25 hour per day Patient and/or Family Agrees t: Yes Time/GCodes Time In: 853 Time Out: 917 Total Billed Treatment Time: 24 Total Billed Treatment 1 visit EX 12 min GT 12 min ARMIDA CARDOSO PT Oct 17, 2020 09:49
--- NOTE | 2020-10-17 10:19 | Progress Note - Hospitalist ---
WAGNER WALTON MED STUDENT 10/17/20 1019: Subjective HPI/CC On Admission Fidel Henriquez is a 70-year-old male with past medical history of hypertension, diabetes, hyperlipidemia, GERD, BPH, gout, depression, who presented with weakness. He was recently admitted to [facility] with COVID-19. He reportedly had a therapy evaluations which indicated the need for ongoing rehabilitation, but his insurance denied both inpatient rehabilitation and intermediate facility. He was discharged home and he reports that he has fallen multiple times since going home. Prior to his recent hospitalization, he was living at home alone completely independent. He did not use any assistive devices with ambulation. After this hospital stay, he has been using a walker. Even with this, he was weak and fell to the ground. He denies any head trauma. He denies any shortness of breath or cough. He says he just feels weak. He denies any chest pain. He denies any abdominal pain. He denies any nausea or vomiting. He says he would like to do rehabilitation to gain his strength back. Subjective/Events-last exam Pt fully alert and oriented. Pt complains of tremor which has made if difficult for him to eat, write, and drink liquids. Pt states that tremor started recently after being dx'd with COVID-19. Pt endorses a improvement in tremor after receiving his Sinemet the past couple of days since it was started. Pt received most recent dose at 08:30 today. Pt states that movement has improved mildly over the past couple of days. Pt denies any recent hx of urinary incontinence. Pt endorses dry mouth. Pt denies chest pain, palpitations, increased SOB and abd pain. Review of Systems General: No Chills, No Night Sweats, No Fatigue HEENT: Other (dry mouth ) Pulmonary: No Dyspnea, No Cough, No Pleuritic Chest Pain Cardiovascular: No: Chest Pain, Palpitations Gastrointestinal: No: Nausea, Vomiting, Abdominal Pain Genitourinary: No Dysuria, No Incontinence Neurological: Weakness, Change in speech Objective Exam Vital Signs Vital Signs Date Time Temp Pulse Resp B/P (MAP) Pulse Ox O2 Delivery O2 Flow Rate FiO2 10/17/20 11:24 36.2 89 20 119/65 (83) 95 Room Air 10/16/20 09:47 1.00 10/12/20 14:52 99 Capillary Refill : Less Than 3 Seconds General Appearance: No Apparent Distress, WD/WN HEENT: PERRL/EOMI, Normal ENT Inspection Neck: Full Range of Motion, Normal Inspection Respiratory: Lungs Clear, Normal Breath Sounds, No Accessory Muscle Use, No Respiratory Distress Cardiovascular: Regular Rate, Rhythm, No Gallop, No Murmur, Normal Peripheral Pulses Gastrointestinal: Non Tender, Soft Rectal: Deferred Neurologic/Psychiatric: Alert, Oriented x3, Normal Mood/Affect, Abnormal Gait Skin: Normal Color, Warm/Dry Results/Procedures Lab Patient resulted labs reviewed. Imaging: Reviewed Imaging Report Assessment/Plan Assessment and Plan Assess & Plan/Chief Complaint Debility Pt working with PT/OT. developmental services worker consulted to aquire outpt placement in SNF. Pt awaiting placement. Pt medically stable. Parkinsonism-like symptoms Likely Parkinson's Dz Versus PSP, MSA, CVA, Essential tremor, Lewy body dementia, or NPH. Likely contributes to pts debility. Pt started on Sinemet yesterday. Pt didn't think he received dose this morning, but records show he did roughly 90 minutes before visit. Pts tremor, rigidity and dysphonia looked similiar to when I saw him last Friday before Sinement was started. Pt denies hx of Parkinsons diagnosis. Acute onset of sxs and lack of response to Sinemet complicates clinical picture. Recommend Referral to Neurologist as outpt. Depression Pt on Mirtazapine and duloxetine. Mirtazapine may contribute pts acute dry mouth. T2DM, non-insulin dependent Glucose lvls controlled on 10 units Detemire HS. SSI АНДРЕЙ Continue cPAP HTN CAD BPH Hypercholesterolemia GERD Gout Continue home regimen DVT Prophylaxis Continue Lovenox. Clinical Quality Measures DVT/VTE Risk/Contraindication: Risk Factor Score Per Nursin RFS Level Per Nursing on Admit: 2=Moderate BRIANNE FARIAS MD 10/17/206: Subjective HPI/CC On Admission Date Seen by Provider: Oct 17, 2020 Time Seen by Provider: 12:30 Assessment/Plan Assessment and Plan Assess & Plan/Chief Complaint Pt continues to improve though slowly. Discussed tremors with patient and overall improvement. Advised outpatient neurology referral. Hopeful to DC to SNF tomorrow. Supervisory-Addendum Brief Verification & Attestation Participated in pt care: history, MDM, physical Personally performed: exam, history, MDM, supervision of care Care discussed with: Medical Student Procedures: n/a Results interpretation: Verified all documentation Verification and Attestation of Medical Student E/M Service A medical student performed and documented this service in my presence. I reviewed and verified all information documented by the medical student and made modifications to such information, when appropriate. I personally performed the physical exam and medical decision making. Brianne Farias, Oct 17, 2020,19:06 WAGNER WALTON MED STUDENT Oct 17, 2020 10:19 BRIANNE FARIAS MD Oct 17, 2020 19:06
[2020-10-17 11:24] VITALS: BP 119/65
[2020-10-17] MEDS: ENOXAPARIN 40 MG/0.4 ML (LOVENOX) SYR SC SCH (14:01)
--- NOTE | 2020-10-17 14:19 | Occupational Ther Daily Note ---
OT Current Status-Daily Note Subjective Pt moves rooms. Pt alert/ oriented. Pt agrees to OT tx. Voice hoarse. End of session pt agrees to broth for soothing. Mental Status/Objective Patient Orientation: Person, Place, Situation ADL-Treatment Therapy Code Descriptions/Definitions Functional [place] Measure: 0=Not Assessed/NA 4=Minimal Assistance 1=Total Assistance 5=Supervision or Setup 2=Maximal Assistance 6=Modified [place] 3=Moderate Assistance 7=Complete IndependenceSCALE: Activities may be completed with or without assistive devices. 9-Styrunetha-flftxxm completes the activity by him/herself with no assistance from a helper. 5-Set-up or Clean-up Assistance-helper sets up or cleans up; patient completes activity. [place] assists only prior to or following the activity. 4-Supervision or Touching Assistance-helper provides verbal cues and/or touching/steadying and/or contact guard assistance as patient completes activity. Assistance may be provided throughout the activity or intermittently. 3-Partial/Moderate Assistance-helper does LESS THAN HALF the effort. [place] lifts, holds or supports trunk or limbs, but provides less than half the effort. 2-Substantial/Maximal Assistance-helper does MORE THAN HALF the effort. [place] lifts or holds trunk or limbs and provides more than half the effort. 4-Iqkgtyeok-phykur does ALL the effort. Patient does none of the effort to complete the activity. Or, the assistance of 2 or more helpers is required for the patient to complete the activity. If activity was not attempted, code reason: 7-Patient Refused. 9-Not Applicable-not attempted and the patient did not perform the activity before the current illness, exacerbation or injury. 10-Not Attempted due to Environmental Limitations-(lack of equipment, weather restraints, etc.). 88-Not Attempted due to Medical Conditions or Safety Concerns. Oral Hygiene (QC): 7 Shower/Bathe Self (QC): 7 Other Treatment Pt agrees to standing balance/ ex tasks. Pt stands from recliner with min A. Pt immediately returns back to chair; pt requires cues for visualization and taking time. Pt stands with increased time, brings BUE to walker. Pt stands for ~2 min. Pt takes steps forward (2) and backward (2 back to recliner). Pt's knees buckle and pt able to bring legs back to neutral. Pt able to take one hand off of walker as he talks, CGA throughout stance. Pt returns to sit. Pt educated on tricep activity to assist in sit to stand: pt completes butt raises from chair with triceps. Pt completes 5x with 30 sec rest break. Max cues for breath during task as pt holds breath. Pt able to master 2/5x. Pt requests pillow under bottom and broth for throat. Pt brought a waffle cushion and broth with lid and straw due to increased tremors. Pt educated on purpose of lid. Sit to stand with CGA and min cues for safety, sits. All needs met, call light in reach, blanket on and tray in front of pt. Education OT Patient Education: Correct positioning, Exercise program, Home exercise program, Purpose of tx/functional activities, Safety issues, Transfer techniques Teaching Recipient: Patient Teaching Methods: Demonstration, Discussion Response to Teaching: Verbalize Understanding, Return Demonstration, Reinforce ment Needed OT Fdc Goals Fdc Goals Time Frame: Oct 20, 2020 Eating (QC): 6 Oral Hygiene (QC): 6 Toileting Hygiene (QC): 6 Shower/Bathe Self (QC): 6 Upper Body Dressing (QC): 6 Lower Body Dressing (QC): 6 On/Off Footwear (QC): 6 Additional Goals: 1-Demonstrate ADL Tasks, 2-Verbalize Understanding, 3- ImproveStrength/[place] 1=Demonstrate adherence to instructed precautions during ADL tasks. 2=Patient will verbalize/demonstrate understanding of assistive devices/modifications for ADL. 3=Patient will improve strength/tolerance for activity to enable patient to perform ADL's. OT Education/Plan Problem List/Assessment Assessment: Decreased Activ Tolerance, Decreased Safety Aware, Decreased UE Strength, Dependent Transfers, Impaired Coordination, Impaired Funct Balance, Impaired I ADL's, Impaired Self-Care Skills Discharge Recommendations Plan/Recommendations: Continue POC Therapy Discharge Recommendati: 24 Hour Supervision, Post Acute OT Treatment Plan/Plan of Care Treatment,Training & Education: Yes Patient would benefit from OT for education, treatment and training to promote independence in ADL's, mobility, safety and/or upper extremity function for ADL 's. Plan of Care: ADL Retraining, Concurrent Therapy, Functional Mobility, UE Funct Exercise/Act, UE Neuromus Re-Ed/Coord Treatment Duration: Oct 20, 2020 Frequency: 5 times per week Estimated Hrs Per Day: .25 hour per day Agreement: Yes Rehab Potential: Fair Time/GCodes Start Time: 13:26 Stop Time: 13:47 Total Time Billed (hr/min): 21 Billed Treatment Time 1, EX (21) LUMA RODRÍGUEZ OTR Oct 17, 2020 14:19
--- NOTE | 2020-10-17 14:32 | NUR ---
"RD ASSESSMENT PMHx: COPD; DM; HTN; PT INTERACTION: Pt was awake and pleasant during nutrition follow-up. Pt states he has been eating better since last assessment. Note avg PO intake 58% x3d, per chart review. Pt states no issues with nausea, vomiting, constipation, or diarrhea since last assessment. Note last BM was 10/15, and pt currently on bowel regimen of colace BID, and senna BID, per chart reiew. ABNORMAL NUTRITION-RELATED LAB VALUES LOW: HIGH:glu 174 Est. kcal needs: 8816-1966 kcal | 20-25 kcal/kg Est. Pro needs: 80-100 g Pro | 0.8-1.0 g Pro/kg PES STATEMENT: Inadequate oral intake (NI-2.1) related to loss of appetite as evidenced by pt interview and avg PO intake 58% x3d. INTERVENTION: Continue with current diet order of CHO 60g/m 3snack diet. Continue with current supplementation order of Glucerna (vary) with meals TID, for increased kcal intake. Provides 220 kcal and 10 g Pro per serving. Can DC supplementation order when avg PO intake >75%. Encouraged pt to eat when able. Will continue to follow and reassess as pt needs, intake, and status change. David Bashir, MS RD LD"
--- NOTE | 2020-10-17 15:19 | NUR ---
CM/SS finalized. Plan: Patient will discharge to [facility] tomorrow 10/18. The fiber picker time is 11:00 a.m. CM/SS received call from Tierney at the [facility]. The patient was accepted for skilled placement. CM/SS notified physician.
[2020-10-17 16:45] VITALS: BP 94/60
[2020-10-17] MEDS: MELATONIN 3 MG TABLET PO PRN ×2 (21:51→21:56)
[2020-10-17] MEDS: MIRTAZAPINE 15 MG (REMERON) TAB PO SCH (21:56)
[2020-10-18 00:03] VITALS: BP 114/59
[2020-10-18] MEDS: inSUlin ASPART (NovoLOG) 1 UNIT/0.01 ML (CHARGE PER UNIT) SC SCH ×2 (06:00→11:18)
[2020-10-18] MEDS: GABAPENTIN 400 MG (NEURONTIN) CAP PO SCH (06:03)
[2020-10-18 07:54] VITALS: BP 115/56
[2020-10-18] MEDS ORDERED: INSU100V5 SQ (09:00)
[2020-10-18] MEDS ORDERED: CARB1TAB19 PO (09:00)
[2020-10-18] MEDS: DOCUSATE SODIUM 100 MG (COLACE) CAP PO SCH (09:01)
[2020-10-18] MEDS: FINASTERIDE (PROSCAR) 5 MG TAB PO SCH (09:01)
[2020-10-18] MEDS: ALLOPURINOL 100 MG (ZYLOPRIM) TAB PO SCH (09:01)
[2020-10-18] MEDS: DULoxetine 30 MG (CYMBALTA) CAP PO SCH (09:01)
--- NOTE | 2020-10-18 09:01 | Discharge Inst-Skilled Nursing ---
Discharge Inst-Skilled NF Chief Complaint Fidel Henriquez is a 70-year-old male with past medical history of hypertension, diabetes, hyperlipidemia, GERD, BPH, gout, depression, who presented with weakness. He was recently admitted to [facility] with COVID-19. He reportedly had a therapy evaluations which indicated the need for ongoing r ehabilitation, but his insurance denied both inpatient rehabilitation and assisted facility. He was discharged home and he reports that he has fallen multiple times since going home. Prior to his recent hospitalization, he was living at home alone completely independent. He did not use any assistive devices with ambulation. After this hospital stay, he has been using a walker. Even with this, he was weak and fell to the ground. He denies any head trauma. He denies any shortness of breath or cough. He says he just feels weak. He denies any chest pain. He denies any abdominal pain. He denies any nausea or vomiting. He says he would like to do rehabilitation to gain his strength back. Consult/Follow Up/Orders Follow Up Appt.: With Dr Elliott in the next week to follow up this hospital stay. Skilled NF Admit to: [facility] Certification (SNF) I certify that SNF services are required to be given on an inpatient basis because of the above named patient's need for assisted care on a continuing basis for the conditions(s) for which he/she was receiving inpatient hospital services prior to his/her transfer to the SNF. [facility] Facility Order: Nursing Services, Sole Scraper-Evaluate & Treat, Physical Therapy-Evaluate & Treat Oxygen Delivery Method: NIV CPAP (HS) Discharge Diet: Cardiac Diet Daily Activity as Tolerated: Yes Resuscitation Status: Full Code New & Resume Previous Orders Marci Haider Oct 18, 2020 09:00 MARCI HAIDER MD Oct 18, 2020 09:01
[2020-10-18] MEDS: PANTOPRAZOLE 20 MG TABLET (PROTONIX) PO SCH (09:02)
[2020-10-18] MEDS: SINEMET 25/100 (CARBIDOPA/LEVODOPA) TAB PO SCH (09:02)
[2020-10-18] MEDS: SENNOSIDES 8.6 MG (SENOKOT) TAB PO SCH (09:02)
[2020-10-18] MEDS: TORSEMIDE 20 MG (DEMADEX) TAB PO SCH (09:05)
--- NOTE | 2020-10-18 09:39 | Discharge Summary ---
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 ) Respiratory: Lungs Clear, Normal Breath Sounds, No Accessory Muscle Use, No Respiratory Distress Cardiovascular: Regular Rate, Rhythm, No JVD, No Murmur, Normal Peripheral Pulses Gastrointestinal: Normal Bowel Sounds, Non Tender, Soft Extremity: Normal Capillary Refill, Normal Inspection, No Calf Tenderness Skin: Normal Color, Warm/Dry Neurologic/Psychiatric: Alert, Oriented x3, Normal Mood/Affect, appeals nurse II-XII Norm as Tested, Other (tremor, bradykinesia. ) Hospital Course Labs (last 24 hrs) Laboratory Tests 10/17/20 11:20: Glucometer 163H 10/17/20 16:15: Glucometer 165H 10/17/20 20:15: Glucometer 175H 10/18/20 05:58: Glucometer 177H Microbiology 10/12/20 Blood Culture - Preliminary, Resulted No growth Patient resulted labs reviewed. Pending Labs Laboratory Tests 10/18/20 05:58: Glucometer 177 Imaging: Reviewed Imaging Report Discussion & Recommendations Fidel Henriquez is a 70-year-old male with past medical history of hypertension, diabetes, hyperlipidemia, GERD, BPH, gout, depression, who presented with weakness. He was a recent inpt diagnosed with COVID-19. He reportedly had a therapy evaluations which indicated the need for ongoing rehabilitation, but his insurance denied both inpatient rehabilitation and [facility] facility. After being discharged home, he fell several times and returned to the ER on 10/12. The main medical concern of the pt was his debility. PT/OT was consulted and worked serially with the pt through the duration of his stay. bibliographic services specialist was consulted for pt placement in a SNF. Pts home regimen was continued and DVT prophylaxis was started with lovenox. Apon examination, tremor and bradykinesia was recognized suggesting parkinsonism features. The pt denies any prior dx of parkinson disease. Sinemet was started 10/16 which improved the pts tremors, rigidity and bradykinesia. The pt was discharged to [facility] nursing unit today. Discharge Home Medications: Active Scripts Active Levemir (Insulin Determir) 1,000 Units/10 Ml Soln 10 Unit SQ HS Carbidopa-Levodopa 25-100 Tab (Carbidopa/Levodopa) 1 Each Tablet 1 Ea PO TIDWM Reported Duloxetine HCl 60 Mg Capsule.dr 60 Mg PO DAILY Novolog Flexpen (Insulin Aspart) 300 Units/3 Ml Solution 4 Units SC TIDAC HOLD IF BLOOD SUGAR IS 150 OR LESS Mirtazapine 30 Mg Tablet 30 Mg PO HS Citalopram HBr (Citalopram Hydrobromide) 20 Mg Tablet 20 Mg PO DAILY Omeprazole 20 Mg Capsule.dr 20 Mg PO DAILY Lisinopril 10 Mg Tablet 10 Mg PO DAILY PRN Nitroglycerin 0.4 Mg Tab.subl 0.4 Mg SL UD PRN Lipitor (Atorvastatin Calcium) 20 Mg Tablet 20 Mg PO HS Senna (Sennosides) 8.6 Mg Tablet 8.6 Mg PO BID PRN Magnesium (Magnesium Oxide) 400 Mg Capsule 400 Mg PO DAILY Torsemide 20 Mg Tablet 20 Mg PO DAILY Potassium Chloride 20 Meq Tab.er.prt 20 Meq PO DAILY Gabapentin 800 Mg Tablet 800 Mg PO Q8H Finasteride 5 Mg Tablet 5 Mg PO DAILY Baclofen 10 Mg Tablet 10 Mg PO TID Allopurinol 100 Mg Tablet 100 Mg PO DAILY Instructions to patient/family Please see electronic discharge instructions given to patient. Clinical Quality Measures DVT/VTE Risk/Contraindication: Risk Factor Score Per Nursin RFS Level Per Nursing on Admit: 2=Moderate BRIANNE FARIAS MD 10/22/20 1513: Discharge Summary Discharge Physical Exam Allergies: Coded Allergies: NKANo Known Allergies (Verified Allergy, Unknown, 07/08/06) Discussion & Recommendations Discharge Planning: >30 minutes discharge planning Supervisory-Addendum Brief Verification & Attestation Participated in pt care: history, MDM, physical Personally performed: exam, history, MDM, supervision of care Care discussed with: Medical Student Procedures: n/a Results interpretation: Verified all documentation Verification and Attestation of Medical Student E/M Service A medical student performed and documented this service in my presence. I reviewed and verified all information documented by the medical student and made modifications to such information, when appropriate. I personally performed the physical exam and medical decision making. Brianne Farias, Oct 22, 2020,15:13 WAGNER W[employer]TON MED STUDENT Oct 18, 2020 09:39 BRIANNE FARIAS MD Oct 22, 2020 15:13
--- NOTE | 2020-10-18 09:45 | NUR ---
CM/SS finalized plan cont'. Plan: Patient will discharge today 10/18 at 11:00 a.m. to [facility]. CM/SS sent updated labs and finalized skilled discharge orders to Tierney. No further needs at this time.
== END 2020-10-18 11:20 ==
LOC: EDUNIT# 14:46 → ER 14:50 → 4TH 18:00
PROVIDERS: ADMIT Internal Medicine; ATTEND Internal Medicine
DX: R53.81 Other malaise (principal); J18.9 Pneumonia, unspecified organism; G20 Parkinson's disease; E11.9 Type 2 diabetes mellitus without complications; M19.90 Unspecified osteoarthritis, unspecified site; F32.9 Major depressive disorder, single episode, unspecified; I10 Essential (primary) hypertension; E78.5 Hyperlipidemia, unspecified; K21.9 Gastro-esophageal reflux disease without esophagitis; N40.0 Benign prostatic hyperplasia without lower urinary tract symptoms; M10.9 Gout, unspecified; Z79.4 Long term (current) use of insulin; Z79.899 Other long term (current) drug therapy
CPT/HCPCS: 70450; 71045; 72125; 80053 ×2; 81000; 82805; 82962 ×7; 83880; 84145; 85025 ×2; 85610; 85730; 86141; 87040; 97110 ×3; 97116 ×2; 97162; 97166; 97530 ×2; 99285; G0378; 36415

== ENCOUNTER → 2022-05-21 | Outpatient (CLI) | payer MEDICARE, MEDICAID ==
[~2022-05-21] MED LIST changes: +CARB1TAB19 PO; +CITA20TA9 PO; +DULO60CA59 PO; +INSU100I14 SC; +INSU100I29 SC; +INSU100V5 SQ; -LISI-556 PO; -LISI10TA2 PO; +LISI10TA25 PO; +LISI5TAB20 PO; +MIRT-68 PO; +MIRT-69 PO; -MIRT15TA6 PO; -MIRT30TA6 PO; +POTA-179 PO; -POTA20TA15 PO; +SERT-414 PO; -SERT100T8 PO
--- NOTE | 2022-05-21 09:03 | Diagnostic Imaging Report ---
INDICATION: Left leg swelling. Left leg venous Doppler study was performed in the routine fashion with color flow Doppler and waveform analysis. FINDINGS: The left common femoral vein, superficial femoral vein, popliteal vein and visualized portion of the posterior tibial vein show normal compressibility and venous flow patterns. There is normal augmentation. IMPRESSION: No evidence of deep vein thrombosis of the major veins of the left leg. Dictated by: Dictated on workstation # [id number]
== END ==
LOC: RAD 08:00
PROVIDERS: ATTEND Internal Medicine
DX: R60.0 Localized edema (principal)

== ENCOUNTER 2023-01-13 17:59 | Emergency (ER) | payer MEDICARE, MEDICAID ==
[~2023-01-13 17:59] MED LIST changes: -CARB1TAB19 PO; +CARB1TAB32 PO
[2023-01-13] MEDS ORDERED: DEXTROSE 50% 50 ML (IMS) SYR IV ONE (18:15)
[2023-01-13 18:22] LABS: BASOPHILS # (AUTO) 0.1 10^3/uL (0.0-0.1); HEMOGLOBIN 12.8 g/dL (13.3-17.7); PLATELET COUNT 138 10^3/uL (130-400)
[2023-01-13 18:24] LABS: BASOPHILS % (AUTO) 1 % (0-10); EOSINOPHILS # (AUTO) 0.2 10^3/uL (0.0-0.3); EOSINOPHILS % (AUTO) 2 % (0-10); HEMATOCRIT 39 % (40-54); LYMPHOCYTES # (AUTO) 2.4 10^3/uL (1.0-4.0); LYMPHOCYTES % (AUTO) 27 % (12-44); MEAN CORPUSCULAR HEMOGLOBIN 29 pg (25-34); MEAN CORPUSCULAR HGB CONC 33 g/dL (32-36); MEAN CORPUSCULAR VOLUME 88 fL (80-99); MEAN PLATELET VOLUME 10.4 fL (9.0-12.2); MONOCYTES # (AUTO) 0.8 10^3/uL (0.0-1.0); MONOCYTES % (AUTO) 9 % (0-12); NEUTROPHILS # (AUTO) 5.6 10^3/uL (1.8-7.8); NEUTROPHILS % (AUTO) 62 % (42-75); WHITE BLOOD COUNT 9.1 10^3/uL (4.3-11.0)
--- NOTE | 2023-01-13 18:27 | Diagnostic Imaging Report ---
INDICATION: Chest pain. TECHNIQUE: Single view chest 6:24 PM. CORRELATION STUDY: 10/12/2020 FINDINGS: Generator pack over the left axillary region with leads coursing into the soft tissue neck unchanged. Heart size and mediastinal configuration remain prominent but less severe. Vasculature within normal limits. Lung bases are limited in evaluation but overall appear generally clear. IMPRESSION: 1. Cardiac enlargement without failure. No significant pulmonary infiltrate. Dictated by: Dictated on workstation # [id number]
[2023-01-13] MEDS ORDERED: NS IV 500 ML 500 ML IV ONE (18:30)
[2023-01-13 18:34] LABS: SMEAR SCAN COMMENT YES
[2023-01-13 18:35] LABS: ALBUMIN 3.6 GM/DL (3.2-4.5); CHLORIDE 110 MMOL/L (98-107); POTASSIUM 3.2 MMOL/L (3.6-5.0); SODIUM 145 MMOL/L (135-145)
[2023-01-13 18:36] LABS: CALCIUM 8.8 MG/DL (8.5-10.1)
[2023-01-13 18:38] LABS: GLUCOSE 73 MG/DL (70-105); TOTAL PROTEIN 7.4 GM/DL (6.4-8.2)
[2023-01-13 18:39] LABS: BILIRUBIN,TOTAL 0.7 MG/DL (0.1-1.0); CARBON DIOXIDE 21 MMOL/L (21-32)
[2023-01-13 18:41] LABS: ALKALINE PHOSPHATASE 234 U/L (40-136); CREATININE SERUM 1.09 MG/DL (0.60-1.30); GFR ESTIMATED 72
[2023-01-13 18:42] LABS: BUN/CREATININE RATIO 15
[2023-01-13 18:44] LABS: ALANINE AMINOTRANSFERASE 20 U/L (0-55); MAGNESIUM 1.7 MG/DL (1.6-2.4)
[2023-01-13 18:55] LABS: PROTHROMBIN TIME PATIENT 13.8 SEC (12.2-14.7)
[2023-01-13] MEDS ORDERED: POTASSIUM CL 10MEQ/50ML IVPB 50 ML IV ONE (19:15)
--- NOTE | 2023-01-13 19:46 | ED General ---
General Chief Complaint: General Problems/Pain Stated Complaint: WEAKNESS Nursing Triage Note: PT TO [facility] 9 BY [facility] WITH C/O LIGHTHEADED, WEAK AND INCREASED BP. Source of Information: Patient Exam Limitations: No Limitations History of Present Illness Date Seen by Provider: Jan 13, 2023 Time Seen by Provider: 17:59 Initial Comments This 72 year old gentleman is a resident of [facility] who arrives via EMS after having an episode of weakness, lightheadedness, sweats, tachycardia and palpitations while he was eating dinner. On arrival patient is feeling better. He demonstrates sinus rhythm on the monitor. He reported some chest discomfort with his palpitations that has since resolved. He describes a history of prior arrhythmia that resolved with medication. On review of his chart there is a Holter monitor study noted with silvia. No tachyarrhythmia was noted on the Holter monitor or in review of his cardiology consultation notes. Mucous membranes are very dry which patient states has been baseline since having COVID-19. Fingerstick blood sugar 70 on arrival and 25 g of D50 was administered. Patient states he woke up late and did not get to eat a full breakfast. Review of medication filling record and reveals that patient has been on multiple high-risk medications including diuretics, Sinemet, baclofen, and insulin. Allergies and Home Medications Allergies Coded Allergies: ANIYAANo Known Allergies (Verified Allergy, Unknown, 07/08/06) Patient Home Medication List Home Medication List Reviewed: Yes Allopurinol (Allopurinol) 100 Mg Tablet, 100 MG PO DAILY, (Reported) Entered as Reported by: ARIA HENRIQUEZ on 02/09/18 1439 Atorvastatin Calcium (Lipitor) 20 Mg Tablet, 20 MG PO HS, (Reported) Entered as Reported by: JORGE AGGARWAL on 05/04/18 1007 Baclofen (Baclofen) 10 Mg Tablet, 10 MG PO TID, (Reported) Entered as Reported by: ARIA HENRIQUEZ on 02/09/18 1439 Carbidopa/Levodopa (Carbidopa-Levodopa 25-100 Tab) 1 Each Tablet, 1 EA PO TIDWM Prescribed by: BRIANNE HAIDER on 10/18/20 0900 Citalopram Hydrobromide (Citalopram HBr) 20 Mg Tablet, 20 MG PO DAILY, (Reported) Entered as Reported by: DEREK LAW on 10/13/20 1543 Duloxetine HCl (Duloxetine HCl) 60 Mg Capsule.dr, 60 MG PO DAILY, (Reported) Entered as Reported by: DEREK LAW on 10/13/20 1543 Finasteride (Finasteride) 5 Mg Tablet, 5 MG PO DAILY, (Reported) Entered as Reported by: ARIA HENRIQUEZ on 02/09/18 1439 Gabapentin (Gabapentin) 800 Mg Tablet, 800 MG PO Q8H, (Reported) Entered as Reported by: ARIA HENRIQUEZ on 02/09/18 1439 Insulin Aspart (Novolog Flexpen) 300 Units/3 Ml Solution, 4 UNITS SC TIDAC, (Rep orted) Entered as Reported by: DEREK LAW on 10/13/20 154 Insulin Determir (Levemir) 1,000 Units/10 Ml Soln, 10 UNIT SQ HS Prescribed by: BRIANNE HAIDER on 10/18/20 0900 Lisinopril (Lisinopril) 10 Mg Tablet, 10 MG PO DAILY PRN for SBP>100 OR HR>60, (Reported) Entered as Reported by: DAYDAY VIEIRA on 11/02/18 1127 Magnesium Oxide (Magnesium) 400 Mg Capsule, 400 MG PO DAILY, (Reported) Entered as Reported by: ABI WILLIS on 05/02/18 1627 Mirtazapine (Mirtazapine) 30 Mg Tablet, 30 MG PO HS, (Reported) Entered as Reported by: DEREK LAW on 10/13/20 1543 Nitroglycerin (Nitroglycerin) 0.4 Mg Tab.subl, 0.4 MG SL UD PRN for CHEST PAIN, (Reported) Entered as Reported by: JORGE AGGARWAL on 05/04/18 1007 Omeprazole (Omeprazole) 20 Mg Capsule.dr, 20 MG PO DAILY, (Reported) Entered as Reported by: DAYDAY VIEIRA on 11/02/18 1127 Potassium Chloride (Potassium Chloride) 20 Meq Tab.er.prt, 20 MEQ PO DAILY, (Reported) Entered as Reported by: ARIA HENRIQUEZ on 02/09/18 1439 Sennosides (Senna) 8.6 Mg Tablet, 8.6 MG PO BID PRN for CONSTIPATION-5TH LINE, (Reported) Entered as Reported by: JORGE AGGARWAL on 05/04/18 1007 Torsemide (Torsemide) 20 Mg Tablet, 20 MG PO DAILY, (Reported) Entered as Reported by: ARIA HENRIQUEZ on 02/09/18 4349 Review of Systems Review of Systems Constitutional: see HPI EENTM: no symptoms reported Respiratory: no symptoms reported Cardiovascular: see HPI Gastrointestinal: no symptoms reported Genitourinary: no symptoms reported Musculoskeletal: no symptoms reported Skin: see HPI Psychiatric/Neurological: See HPI Hematologic/Lymphatic: No Symptoms Reported Past Lesmwew-Yzwxjg-Aqqczc Hx Patient Social History Tobacco Use?: No Use of E-Cig and/or Vaping dev: No Substance use?: No Alcohol Use?: No Pt feels they are or have been: No Immunizations Up To Date Tetanus Booster (TDap): Unknown Influenza Vaccine Up-to-Date: Yes; Up-to-Date First/Initial COVID19 Vaccinat: X4 Second COVID19 Vaccination Volodymyr: X4 Third COVID19 Vaccination Date: X4 Seasonal Allergies Seasonal Allergies: No Past Medical History Surgeries: Yes (shoulder, craniotomy with temporal lobectomy for epilepsy) Appendectomy, Neurological, Orthopedic Respiratory: Yes Sleep Apnea Currently Using CPAP: Yes Cardiac: Yes (tachycardia, ventricular bigeminy) Heart Attack, Hypertension, Irregular Heartbeat Neurological: Yes (epilepsy no seizure since brain sx) Reproductive Disorders: No Genitourinary: Yes Prostate Problems Gastrointestinal: Yes Gall Bladder Disease Musculoskeletal: Yes Arthritis Endocrine: Yes Diabetes, Non-Insulin dep HEENT: Yes (chronic mastoiditis of left side, chronic otits media) Chronic Ear Infection Loss of Vision: Denies Hearing Impairment: Denies Cancer: Yes Skin Psychosocial: Yes Depression Integumentary: No Blood Disorders: No Family Medical History Alzheimer's disease 19 MOTHER FH: depression 19 MOTHER Physical Exam Vital Signs Vital Signs - First Documented 01/13/23 18:00 Temp 36.1 Pulse 80 Resp 12 B/P (MAP) 132/74 (93) Capillary Refill : Height, Weight, BMI Height: 6'1.00" Weight: 265lbs. 0.0oz. 120.389137cr; 29.13 BMI Method:Stated General Appearance: No Apparent Distress, WD/WN HEENT: PERRL/EOMI, Normal ENT Inspection, Other (Very dry oropharynx) Neck: Normal Inspection; No JVD Respiratory: Lungs Clear, Normal Breath Sounds, No Accessory Muscle Use Cardiovascular: Regular Rate, Rhythm, No Murmur, Other (Trace lower extremity edema) Gastrointestinal: Normal Bowel Sounds, Non Tender, Soft Extremity: Normal Inspection, Non Tender, Other (Trace lower extremity edema) Neurologic/Psychiatric: Alert, Oriented x3, Normal Mood/Affect Skin: Normal Color, Warm/Dry Progress/Results/Core Measures Suspected Sepsis SIRS Temperature: Pulse: 80 Respiratory Rate: 12 Laboratory Tests 01/13/23 18:12: White Blood Count 9.1 Blood Pressure 132 /74 Mean: 93 Laboratory Tests 01/13/23 18:12: Creatinine 1.09, Platelet Count 138, Total Bilirubin 0.7 01/13/23 18:34: INR Comment 1.0 Results/Orders Lab Results Laboratory Tests Test 01/13/23 18:12 01/13/23 18:34 01/13/23 19:33 01/13/23 20:30 Range/Units White Blood Count 9.1 4.3-11.0 10^3/uL Red Blood Count 4.46 4.30-5.52 10^6/uL Hemoglobin 12.8 L 13.3-17.7 g/dL Hematocrit 39 L 40-54 % Mean Corpuscular Volume 88 80-99 fL Mean Corpuscular Hemoglobin 29 25-34 pg Mean Corpuscular Hemoglobin Concent 33 32-36 g/dL Red Cell Distribution Width 14.3 10.0-14.5 % Platelet Count 138 130-400 10^3/uL Mean Platelet Volume 10.4 9.0-12.2 fL Immature Granulocyte % (Auto) 1 % Neutrophils (%) (Auto) 62 42-75 % Lymphocytes (%) (Auto) 27 12-44 % Monocytes (%) (Auto) 9 0-12 % Eosinophils (%) (Auto) 2 0-10 % Basophils (%) (Auto) 1 0-10 % Neutrophils # (Auto) 5.6 1.8-7.8 10^3/uL Lymphocytes # (Auto) 2.4 1.0-4.0 10^3/uL Monocytes # (Auto) 0.8 0.0-1.0 10^3/uL Eosinophils # (Auto) 0.2 0.0-0.3 10^3/uL Basophils # (Auto) 0.1 0.0-0.1 10^3/uL Immature Granulocyte # (Auto) 0.1 0.0-0.1 10^3/uL Percent Immature Platelet Fraction 3.5 0.0-7.6 % Sodium Level 145 135-145 MMOL/L Potassium Level 3.2 L 3.6-5.0 MMOL/L Chloride Level 110 H 98-107 MMOL/L Carbon Dioxide Level 21 21-32 MMOL/L Anion Gap 14 5-14 MMOL/L Blood Urea Nitrogen 16 7-18 MG/DL Creatinine 1.09 0.60-1.30 MG/DL Estimat Glomerular Filtration Rate 72 BUN/Creatinine Ratio 15 Glucose Level 73 70-105 MG/DL Glucometer 70 121 H 70-110 MG/DL Calcium Level 8.8 8.5-10.1 MG/DL Corrected Calcium 9.1 8.5-10.1 MG/DL Magnesium Level 1.7 1.6-2.4 MG/DL Total Bilirubin 0.7 0.1-1.0 MG/DL Aspartate Amino Transf (AST/SGOT) 46 H 5-34 U/L Alanine Aminotransferase (ALT/SGPT) 20 0-55 U/L Alkaline Phosphatase 234 H 40-136 U/L Myoglobin 117.4 H 10.0-92.0 NG/ML Troponin I < 0.028 <0.028 NG/ML C-Reactive Protein High Sensitivity 2.19 H 0.00-0.50 MG/DL Total Protein 7.4 6.4-8.2 GM/DL Albumin 3.6 3.2-4.5 GM/DL Smear Scan YES Prothrombin Time 13.8 12.2-14.7 SEC INR Comment 1.0 0.8-1.4 Activated Partial Thromboplast Time 36 H 24-35 SEC Urine Color ORANGE Urine Clarity CLEAR Urine pH 5.5 5-9 Urine Specific [place] 1.020 1.016-1.022 Urine Protein NEGATIVE NEGATIVE Urine Glucose (UA) NEGATIVE NEGATIVE Urine Ketones TRACE H NEGATIVE Urine Nitrite NEGATIVE NEGATIVE Urine Bilirubin NEGATIVE NEGATIVE Urine Urobilinogen 1.0 < = 1.0 MG/DL Urine Leukocyte Esterase NEGATIVE NEGATIVE Urine RBC (Auto) NEGATIVE NEGATIVE Urine RBC NONE /HPF Urine WBC RARE /HPF Urine Squamous Epithelial Cells 10-25 H /HPF Urine Crystals NONE /LPF Urine Bacteria TRACE /HPF Urine Casts PRESENT /LPF Urine Hyaline Casts 0-2 H /LPF Urine Mucus SMALL H /LPF Urine Culture Indicated NO Test 01/13/23 20:49 Range/Units Troponin I < 0.028 <0.028 NG/ML My Orders Orders - MONIKA REARDON MD Cbc With Automated Diff (01/13/23 18:07) Comprehensive Metabolic Panel (01/13/23 18:07) Hs C Reactive Protein (01/13/23 18:07) Magnesium (01/13/23 18:07) Ua Culture If Indicated (01/13/23 18:07) Ed Iv/Invasive Line Start (01/13/23 18:07) Chest 1 View, Ap/Pa Only (01/13/23 18:15) Ekg Tracing (01/13/23 18:15) Myoglobin Serum (01/13/23 18:15) Protime With Inr (01/13/23 18:15) Partial Thromboplastin Time (01/13/23 18:15) Monitor-Rhythm Ecg Trace Only (01/13/23 18:15) Lipid Panel (01/14/23 06:00) Troponin I [place] (01/13/23 18:15) D50w (Emergency) Syringe (Dextrose 50% 5 (01/13/23 18:15) Ns Iv 500 Ml (Sodium Chloride 0.9%) (01/13/23 18:30) Accucheck Stat ONCE (01/13/23 18:16) Accucheck Stat ONCE (01/13/23 18:16) Accucheck Stat ONCE (01/13/23 18:16) Potassium Cl 10meq/50ml Ivpb (Kcl 10 Meq (01/13/23 19:15) General/Regular (01/13/23 Dinner) Troponin I [place] (01/13/23 20:15) Potassium Chloride (Tablet) (Klor Con Ta (01/13/23 22:00) Medications Given in ED Current Medications Medications Dose Ordered Sig/Cristhian Route Start Time Stop Time Status Last Admin Dose Admin Dextrose 25 ml ONCE ONCE IV 01/13/23 18:15 01/13/23 18:16 DC 01/13/23 18:25 25 ML Potassium Chloride 50 ml @ 50 mls/hr ONCE ONCE IV 01/13/23 19:15 01/13/23 20:14 DC 01/13/23 19:30 50 MLS/HR Sodium Chloride 500 ml @ 0 mls/hr Q0M ONCE IV 01/13/23 18:30 01/13/23 18:31 DC 01/13/23 18:25 500 MLS/HR Vital Signs/I&O 01/13/23 18:00 Temp 36.1 Pulse 80 Resp 12 B/P (MAP) 132/74 (93) Capillary Refill : Blood Pressure Mean: 93 Point of Care Testing Finger Stick Blood Glucose: 121 Blood Glucose Action Taken: DR NOTIFIED Progress Note #1: Time: 19:50 Progress Note Patient was interviewed and examined upon arrival and chart was reviewed. Report was received from EMS. Patient provides much of the history himself. Labs were obtained including CBC, CMP, magnesium, and troponin. Labs were relatively unremarkable except for mild hypokalemia which is being replaced by IV route. Patient is also being hydrated with a normal saline 500 mL bolus. A 2-hour delta troponin will be obtained. Borderline hypoglycemia was corrected with D50 bolus. Patient is being allowed to eat and drink, and we will monitor his blood sugars while in the ER. I suspect patient had a hypoglycemic episode and/or some type of tachycardia such as SVT that resolved on its own. Close follow-up with his PCP and supervisor cold rolling will be recommended. No arrhythmia has been noted thus far. Progress Note #2: Time: 21:59 Progress Note Patient is feeling better at this time. He has had no other adverse events while in the ER. Delta troponin was negative. Rhythm has been unremarkable. Patient is advised to follow-up with his PCP and supervisor cold rolling regarding the event today. I suspect the event was either a hypoglycemic episode or a brief tacky arrhythmia. Discussion with his supervisor cold rolling is warranted regarding any f urther rhythm monitoring. It has been about 5 years since his Holter monitor. Patient is receiving oral potassium 20 mEq prior to discharge, and we will check his blood sugar 1 more time. ECG Initial ECG Impression Date: Jan 13, 2023 Initial ECG Impression Time: 19:02 Initial ECG Rate: 71 Initial ECG Rhythm: Normal Sinus Initial ECG Intervals: Normal Comment Sinus rhythm with no ST elevation or depression. Borderline WA interval at 213 ms and slightly prolonged QT interval at 513 ms. No axis deviation. Diagnostic Imaging Diagonstic Imaging: Xray Plain Films/CT/US/NM/MRI: chest Comments Chest x-ray viewed by me and radiologist's report reviewed. See report below: NAME: [facility] REC#: [id number] PT STATUS: REG ER : 1950 PHYSICIAN: MONIKA REARDON MD ADMIT DATE: 01/13/23/ER Signed Date of Exam:01/13/23 CHEST 1 VIEW, AP/PA ONLY INDICATION: Chest pain. TECHNIQUE: Single view chest 6:24 PM. CORRELATION STUDY: 10/12/2020 FINDINGS: Generator pack over the left axillary region with leads coursing into the soft tissue neck unchanged. Heart size and mediastinal configuration remain prominent but less severe. Vasculature within normal limits. Lung bases are limited in evaluation but overall appear generally clear. IMPRESSION: 1. Cardiac enlargement without failure. No significant pulmonary infiltrate. Dictated by: Dictated on workstation # [id number] Dict: 01/13/231823 Trans: 01/13/231930 ABIDA [id number] Interpreted by: JOSE MIGUEL GUNN DO Electronically signed by: JOSE MIGUEL GUNN DO 01/13/231930 Departure Impression Primary Impression: Hypoglycemia Additional Impressions: Hypokalemia Palpitations Chest discomfort Disposition: HOME, SELF-CARE Condition: Improved Departure-Patient Inst. Referrals: ALFIE GUEVARA DO (PCP) Primary Care Physician Patient Instructions: Chest Pain, Hypokalemia, Palpitations ED Add. Discharge Instructions: Follow-up with your primary care provider and supervisor cold rolling as soon as possible. Discuss at your follow-up appointments if any further cardiac rhythm monitoring is warranted. Discussed your low potassium with your doctors and follow-up as well. Monitor blood sugar closely over the next few days. You may take your evening medicines. If you take evening insulin, please be sure to eat. Return to care if you have any other worsening symptoms in the meantime. All discharge instructions reviewed with patient and/or family. Voiced understanding. Copy Copies To 1: ALFIE GUEVARA DO Copies To 2: JOHN SUGGS MD, JOSHUA T MD Jan 13, 2023 19:46
[2023-01-13 20:38] LABS: BILIRUBIN,URINE NEGATIVE (NEGATIVE); CLARITY,URINE CLEAR; COLOR,URINE ORANGE; GLUCOSE, URINE (UA) NEGATIVE (NEGATIVE); KETONES,URINE TRACE (NEGATIVE); LEUKOCYTE ESTERASE ,URINE NEGATIVE (NEGATIVE); NITRITE,URINE NEGATIVE (NEGATIVE); PH,URINE 5.5 (5-9); PROTEIN,URINE NEGATIVE (NEGATIVE)
[2023-01-13 21:05] LABS: BACTERIA,URINE TRACE /HPF; HYALINE CASTS, URINE 0-2 /LPF; WBC,URINE RARE /HPF
[2023-01-13] MEDS ORDERED: KCL 10 MEQ TAB (MICRO K) PO ONE (22:00)
[2023-01-13 22:21] VITALS: BP 131/86
== END 2023-01-13 22:22 | disposition home or self-care (01) ==
LOC: ER 17:59 → EDUNIT# 17:59 → ER 22:22
DX: E11.649 Type 2 diabetes mellitus with hypoglycemia without coma (principal); E87.6 Hypokalemia; R07.89 Other chest pain; G47.30 Sleep apnea, unspecified; Z79.899 Other long term (current) drug therapy; Z99.89 Dependence on other enabling machines and devices; Z79.4 Long term (current) use of insulin
CPT/HCPCS: 36415; 71045; 80053; 81000; 82947; 83735; 83874; 84484; 85025; 85610; 85730; 86141; 93005; 93041

== ENCOUNTER → 2023-01-22 | Outpatient (CLI) | payer MEDICARE, MEDICAID | LOC: CARD 15:00 | PROVIDERS: ATTEND Internal Medicine Cardiovascular Disease | DX: I11.9 Hypertensive heart disease without heart failure (principal); I34.0 Nonrheumatic mitral (valve) insufficiency; I35.1 Nonrheumatic aortic (valve) insufficiency | CPT/HCPCS: 93306 ==

== ENCOUNTER → 2023-01-22 | Day surgery (SDC) | payer MEDICARE, MEDICAID ==
[~2023-01-22] VITALS: Ht 185 cm; Wt 124.7 kg
[~2023-01-22] MED LIST changes: +ADENOSINE 6 MG/2 ML (ADENOCARD) VIAL IV ONE; +NS IV 1000 ML 0 ML ONE; +NS IV 1000 ML 1,000 ML IV SCH
[2023-01-22 15:37] VITALS: BP 142/79
--- NOTE | 2023-01-22 15:58 | Diagnostic Imaging Report ---
INDICATION: sinus tach COMPARISON: 01/13/2023 FINDINGS: Single frontal view of the chest demonstrates normal heart size and pulmonary vascularity. The lungs are well aerated and clear. No large pleural effusion or pneumothorax is seen. The visualized osseous structures show no acute abnormalities. Left-sided neurostimulator device is present. IMPRESSION: 1. No acute cardiopulmonary process. Dictated by: Dictated on workstation # [id number]
== END ==
LOC: CATH 14:58
PROVIDERS: ATTEND Internal Medicine Cardiovascular Disease
DX: R07.9 Chest pain, unspecified (principal); Z53.8 Procedure and treatment not carried out for other reasons; I25.10 Atherosclerotic heart disease of native coronary artery without angina pectoris; I10 Essential (primary) hypertension; E78.2 Mixed hyperlipidemia; I47.1 Supraventricular tachycardia; I65.23 Occlusion and stenosis of bilateral carotid arteries; F41.9 Anxiety disorder, unspecified; F32.A Depression, unspecified; I48.20 Chronic atrial fibrillation, unspecified; G47.33 Obstructive sleep apnea (adult) (pediatric); E66.9 Obesity, unspecified; Z68.36 Body mass index [BMI] 36.0-36.9, adult; Z79.899 Other long term (current) drug therapy
CPT/HCPCS: 71045; 93005

== ENCOUNTER → 2023-02-19 | Outpatient (CLI) | payer MEDICARE, MEDICAID ==
[~2023-02-19] MED LIST changes: -ADENOSINE 6 MG/2 ML (ADENOCARD) VIAL IV ONE; +CATHETER FLUSH 10 ML SYR IVP PRN; -NS IV 1000 ML 0 ML ONE; -NS IV 1000 ML 1,000 ML IV SCH; +REGADENOSON 0.4 MG/5 ML SYR (LEXISCAN) IV ONE
[2023-02-19 09:13] VITALS: BP 133/62
--- NOTE | 2023-02-19 13:48 | Cardiology Stress Test Report ---
Stress Test Report Date of Procedure/Referring: Date of Procedure: Feb 19, 2023 PCP Mable Gaming DO Admitting Physician Admitting Physician: Attending Physician: Natali Ayala MD Indications: CP Baseline Heart Rate: 72 Baseline Blood Pressure: Blood Pressure Systolic: 133 Blood Pressure Diastolic: 62 Baseline Vitals Vital Signs Date Time Temp Pulse Resp B/P (MAP) Pulse Ox O2 Delivery O2 Flow Rate FiO2 02/19/23 09:13 72 133/62 (85) Baseline EKG: Baseline EKG: NSR Summary After explaining the procedure to the patient, he signed a consent and then brought to the stress nuclear laboratory. Patient received 0.4 mg Lexiscan for stress test, ECG, heart rate and blood pressure were monitored continuously. Resting and stress dose of radio tracer were injected, imaging was acquired and reviewed in short axis, horizontal long axis and vertical long axis views. TID: 1.01 SSS: 8 SDS: 6 EF: 49 Patient tolerated Lexiscan well Reversible ischemia involving the mid to apical inferior wall and inferolateral wall Normal left ventricular size with mild hypokinesia of the inferior wall, ejection fraction 49% Copy Copies To 1: MABLE GAMING BASHAR J MD Feb 19, 2023 13:48
== END ==
LOC: CARD 07:23
PROVIDERS: ATTEND Internal Medicine Cardiovascular Disease
DX: I25.10 Atherosclerotic heart disease of native coronary artery without angina pectoris (principal); I10 Essential (primary) hypertension
CPT/HCPCS: 78452; 93017

== ENCOUNTER 2023-02-26 11:49 | Day surgery (SDC) | payer MEDICARE, MEDICAID ==
[~2023-02-26] VITALS: Ht 185 cm; Wt 124.0 kg
[2023-02-26] VITALS (7 sets, daily range): BP systolic 117–142; BP diastolic 58–77
[~2023-02-26 11:49] MED LIST changes: -CATHETER FLUSH 10 ML SYR IVP PRN; -REGADENOSON 0.4 MG/5 ML SYR (LEXISCAN) IV ONE
[2023-02-26] MEDS ORDERED: NS IV 1000 ML 1,000 ML IV ONE (12:15)
[2023-02-26] MEDS ORDERED: LIDOCAINE 1% INJ 20 ML VIAL ONE (12:17)
[2023-02-26] MEDS ORDERED: HEParin (CATH LAB) 2,000 ML IV ONE (12:17)
[2023-02-26] MEDS ORDERED: NS IV 1000 ML 1,000 ML ONE (12:17)
[2023-02-26 12:46] LABS: BILIRUBIN,URINE NEGATIVE (NEGATIVE); CLARITY,URINE CLEAR; COLOR,URINE YELLOW; GLUCOSE, URINE (UA) NEGATIVE (NEGATIVE); HEMATOCRIT 42 % (40-54); HEMOGLOBIN 13.7 g/dL (13.3-17.7); KETONES,URINE NEGATIVE (NEGATIVE); LEUKOCYTE ESTERASE ,URINE NEGATIVE (NEGATIVE); MEAN CORPUSCULAR HEMOGLOBIN 29 pg (25-34); MEAN CORPUSCULAR HGB CONC 33 g/dL (32-36); MEAN CORPUSCULAR VOLUME 88 fL (80-99); MEAN PLATELET VOLUME 10.3 fL (9.0-12.2); NITRITE,URINE NEGATIVE (NEGATIVE); PLATELET COUNT 163 10^3/uL (130-400); PROTEIN,URINE TRACE (NEGATIVE)
[2023-02-26 12:57] LABS: BACTERIA,URINE FEW /HPF; SQUAMOUS EPITHELIAL CELL,UR 0-2 /HPF; WBC,URINE 0-2 /HPF
[2023-02-26 13:01] LABS: PROTHROMBIN TIME PATIENT 13.9 SEC (12.2-14.7)
[2023-02-26 13:11] LABS: ALBUMIN 3.7 GM/DL (3.2-4.5); BILIRUBIN,TOTAL 0.5 MG/DL (0.1-1.0); CALCIUM 9.5 MG/DL (8.5-10.1); CREATININE SERUM 1.01 MG/DL (0.60-1.30); POTASSIUM 4.3 MMOL/L (3.6-5.0); TOTAL PROTEIN 7.6 GM/DL (6.4-8.2)
--- NOTE | 2023-02-26 13:12 | Diagnostic Imaging Report ---
CHEST 1 VIEW, AP/PA ONLY Indication: Abnormal stress test Comparison: 01/22/2023 Findings: No focal airspace disease in the visualized lungs. No pleural effusion or pneumothorax. Normal cardiomediastinal silhouette. Stable left pectoral implanted generator pack with leads extending cranially to the lower left neck. Impression: 1. No acute cardiopulmonary process by portable radiography. Dictated by: Dictated on workstation # [id number]
[2023-02-26] MEDS ORDERED: MTP25TSR PO (13:29)
[2023-02-26] MEDS ORDERED: ACHD5005 PO (13:29)
[2023-02-26] MEDS ORDERED: INSU500I SQ (13:29)
[2023-02-26] MEDS ORDERED: MIRT45TA75 PO (13:29)
[2023-02-26] MEDS ORDERED: VNL75T PO (13:29)
[2023-02-26] MEDS ORDERED: LACT20SO2 PO (13:29)
[2023-02-26] MEDS ORDERED: INSU100I29 SQ (13:29)
[2023-02-26] MEDS ORDERED: DULA3PEN SQ (13:29)
[2023-02-26] MEDS ORDERED: CARB1DRO OP (13:29)
[2023-02-26] MEDS ORDERED: BUSP5TAB59 PO (13:29)
[2023-02-26] MEDS ORDERED: CARB1TAB32 PO (13:29)
[2023-02-26] MEDS ORDERED: fentaNYL INJ 100 MCG/2 ML AMP ONE (13:55)
[2023-02-26] MEDS ORDERED: VERAPAMIL 5 MG/2 ML (CALAN) VIAL IV ONE (13:56)
[2023-02-26] MEDS ORDERED: HEParin 1000 UNIT/ML (10ML VIAL) FOR BOLUS ONE (13:56)
[2023-02-26] MEDS ORDERED: MIDAZOLAM 5 MG/5 ML (VERSED) VIAL ONE (13:56)
[2023-02-26] MEDS ORDERED: NITRO DRIP 25000 MCG/D5W 250 ML IV ONE (13:56)
--- NOTE | 2023-02-26 14:05 | Cardiac Procedure Note-CS/ASA ---
Pre-Procedure Note Pre-Op Procedure Note Date of Available H&P: Feb 20, 2023 Date H&P Reviewed: Feb 26, 2023 Time H&P Reviewed: 14:04 History & Physical: H&P Reviewed, Patient Examed, No changes noted Pre-Operative Diagnosis: CAD Moderate Sedation PreProcedure Time 14:04 ASA Score 3 Airway Lungs Heart ASA score ASA 1: a normal healthy patient ASA 2: a patient with a mild systemic disease (mid diabetes, controlled hypertension, obesity ASA 3: a patient with a severe systemic disease that limits activity (angina, COPD, prior Myocardial infarction) ASA 4: a patient with an incapacitating disease that is a constant threat to life (CHF, renal failure) ASA 5: a moribund patient not expected to survive 24 hrs. (ruptured aneurysm) ASA 6: a declared brain- patient whose organs are being harvested. For emergent operations, add the letter E after the classification Mallampati Classification Grade 3 Sedation Plan Analgesia, Amnesia, Plan communicated to team members, Discussed options with patient/fam, Discussed risks with patient/fam The patient is an appropriate candidate to undergo the planned procedure, sedation, and anesthesia. The patient immediately re-assessed prior to indication. JOHN SUGGS MD Feb 26, 2023 14:04
--- NOTE | 2023-02-26 14:51 | Discharge Inst-Post CATH ---
Discharge Inst-CATH/EP Problems Reviewed?: Yes Post Cardiac Cath/EP D/C Inst Follow Up/Plan Appointment with Dr. Ayala's office in 4-week <b>CARDIAC CATH/EP PROCEDURE DISCHARGE INSTRUCTIONS</b> ACTIVITY * Go Home directly and rest. * Limit activity of the leg (or wrist if it was used) for 7 days including aerobics, swimming, jogging, bicycling, etc. * Restrict stair-climbing for 7 days if possible, if not, climb up with your non-cath leg, then bring together on the same step. * Avoid lifting, pushing, pulling or excessive movement of the affected extremity for 7 days. * Customary sexual activity may be resumed after 2 days-use caution not to use a position that strains or causes pain to the affected extremity. * No driving for 24 hours. * NO SMOKING. * Avoid straining for bowel movements for 7 days. * Gentle walking on level ground is allowed. * Returning to work will depend on the type of procedure and the results. Your doctor will discuss this with you. CALL YOUR DOCTOR FOR ANY OF THE FOLLOWING: *If bleeding from the puncture site occurs- Apply gentle pressure to site with clean cloth and call your doctor or EMS. * If a knot or lump forms under the skin, increases in size, or causes pain. * If bruising appears to be worsening or moving further down your leg instead of disappearing. * Temperature above 101 F. CARE OF YOUR GROIN INCISION; * Bruising or purple discoloration of the skin near the puncture site is common. * You may shower only, no bathtub bathing for 5 days. Be careful to avoid slipping as your leg may feel stiff. * If a closure device was used on your femoral artery, please see the attached guide regarding care of the device and your leg. * Leave dressing on FOR 24 hours. CARE OF YOUR WRIST INCISION; * Bruising or purple discoloration of the skin near the puncture site is common. * You may shower. * DO NOT submerge wrist. * Leave dressing on FOR 24 hours. JOHN AYALA MD Feb 26, 2023 14:51
--- NOTE | 2023-02-26 14:57 | Cardiac Cath Report ---
Cardiac Cath Report Physician (s)/Certified Pesticide Applicator (s) Physician JOHN SUGGS MD Pre-Procedure Diagnosis Pre-Procedure Diagnosis: CAD Post-Procedure Note Procedure Start Date: Feb 26, 2023 Name of Procedure: Coronary angiogram Aortic arch angiogram Findings/Procedure Note PROCEDURE NOTE: 72-year-old gentleman with a history of coronary artery disease, hypertension, hyperlipidemia and diabetes mellitus, abnormal stress test, scheduled for cardiac catheterization possible PTCA. After explaining the procedure to the patient, all pros and cons were explained, all questions were answered. The patient signed the consent and then he was placed in the cardiac catheterization laboratory. Groin was prepped in SL fashion local anesthesia was used. Sheath placed in the right radial artery, I was unable to advance the catheter through the brachiocephalic artery. I injected 4 cc of contrast in the brachiocephalic artery and angiogram was done it appears that it has a mutual origin with the left carotid artery advance the catheter and did angiogram which was left carotid angiogram then I was unable to advance the wire through the brachiocephalic artery to the arch I remove the catheter and used Arley right catheter and advanced it over a J-wire over Storq wire was unable to cross initially the aortic valve engaged right coronary artery with difficulty and angiogram was done. Exchanged the catheter to [place] catheter again could not cross the aortic valve engage the right coronary artery in a better position and did angiogram then I had nonselective angiogram to the left system then exchanged the catheter and used Arley left catheter and engaged the left coronary system and angiogram was done then I pulled the catheter just at the aortic arch and did angiogram at the origin of the brachiocephalic and left carotid artery. At the end of the procedure the sheath was removed. Vascular band was used FINDINGS: Hemodynamics LV did not cross the aortic valve, pressure was measured Aorta 123/57 mean of 83 ANATOMY: Left Main is free of obstructive disease Left Anterior Descending has mild disease nonobstructive disease Left Circumflex has no obstructive disease Right Coronary Artery is dominant artery with 40 to 50% stenosis at the proximal and midportion nonobstructive disease LV Gram did not cross the aortic valve Aorta evaluation with aortic arch angiogram showing normal aortic arch. No diss ection or aneurysm The right brachiocephalic artery and left carotid artery share a common origin from the aortic arch. No dissection or aneurysm CONCLUSION: Mild to moderate coronary artery disease nonobstructive disease, 40 to 50% proximal and mid right coronary artery stenosis Difficult anatomy due to the mutual origin of the right brachiocephalic and left carotid artery which made the procedure more challenging DISCUSSION AND RECOMMENDATION: Medical therapy is recommended no intervention is needed Anesthesia Type: Conscious Sedation Estimated blood loss (mL): 25 ,l Contrast Amount: 80 ml Total Radiation Dose: 910 mGy Post-Procedure Diagnosis Post-operative diagnosis: Chest pain Coronary artery disease Hypertension Hyperlipidemia Diabetes mellitus JOHN SUGGS MD Feb 26, 2023 14:57
[2023-02-26] MEDS ORDERED: NS IV 1000 ML 1,000 ML IV SCH (15:00)
== END 2023-02-26 16:45 ==
LOC: CATH 11:49 → SDC 15:14 → CATH 16:45
PROVIDERS: ATTEND Internal Medicine Cardiovascular Disease
DX: I25.10 Atherosclerotic heart disease of native coronary artery without angina pectoris (principal); I10 Essential (primary) hypertension; E11.9 Type 2 diabetes mellitus without complications; E66.9 Obesity, unspecified; I48.0 Paroxysmal atrial fibrillation; I49.3 Ventricular premature depolarization; I47.1 Supraventricular tachycardia; H70.10 Chronic mastoiditis, unspecified ear; G47.33 Obstructive sleep apnea (adult) (pediatric); I65.23 Occlusion and stenosis of bilateral carotid arteries; E78.2 Mixed hyperlipidemia; F41.9 Anxiety disorder, unspecified; F32.A Depression, unspecified; Z79.4 Long term (current) use of insulin; Z99.81 Dependence on supplemental oxygen; Z79.84 Long term (current) use of oral hypoglycemic drugs; Z68.36 Body mass index [BMI] 36.0-36.9, adult; Z79.899 Other long term (current) drug therapy; Z98.890 Other specified postprocedural states
CPT/HCPCS: 36221; 36415; 71045; 80053; 80061; 81000; 85027; 85610; 85730; 87077; 87081; 87088; 87186; 93005; 93458

== ENCOUNTER → 2023-07-16 | Outpatient (CLI) | payer MEDICARE, MEDICAID ==
[~2023-07-16] MED LIST changes: +BUSP5TAB59 PO; +CARB1DRO OP; +DULA3PEN SQ; -INSU100I29 SC; +INSU100I30 SC; +INSU100I30 SQ; +INSU500I SQ; +LACT20SO2 PO; +MIRT45TA75 PO; +MTP25TSR PO; +VNL75T PO
== END ==
LOC: WOUNDCARE 14:18
PROVIDERS: ATTEND Family Medicine
DX: E11.621 Type 2 diabetes mellitus with foot ulcer (principal); L97.512 Non-pressure chronic ulcer of other part of right foot with fat layer exposed; E11.65 Type 2 diabetes mellitus with hyperglycemia; E66.01 Morbid (severe) obesity due to excess calories; E11.40 Type 2 diabetes mellitus with diabetic neuropathy, unspecified; M14.671 Charcot's joint, right ankle and foot; Z68.36 Body mass index [BMI] 36.0-36.9, adult; E11.52 Type 2 diabetes mellitus with diabetic peripheral angiopathy with gangrene
CPT/HCPCS: 11042; 87070; 87077; 87205

== ENCOUNTER → 2023-07-23 | Outpatient (CLI) | payer MEDICARE, MEDICAID | LOC: WOUNDCARE 13:11 | PROVIDERS: ATTEND Family Medicine | DX: E11.621 Type 2 diabetes mellitus with foot ulcer (principal); L97.512 Non-pressure chronic ulcer of other part of right foot with fat layer exposed; E11.65 Type 2 diabetes mellitus with hyperglycemia; E66.01 Morbid (severe) obesity due to excess calories; E11.40 Type 2 diabetes mellitus with diabetic neuropathy, unspecified; M14.671 Charcot's joint, right ankle and foot; Z68.36 Body mass index [BMI] 36.0-36.9, adult; E11.52 Type 2 diabetes mellitus with diabetic peripheral angiopathy with gangrene | CPT/HCPCS: 11042 ==

== ENCOUNTER → 2023-07-30 | Outpatient (CLI) | payer MEDICARE, MEDICAID | LOC: WOUNDCARE 12:49 | PROVIDERS: ATTEND Family Medicine | DX: E11.621 Type 2 diabetes mellitus with foot ulcer (principal); L97.512 Non-pressure chronic ulcer of other part of right foot with fat layer exposed; E11.65 Type 2 diabetes mellitus with hyperglycemia; E66.01 Morbid (severe) obesity due to excess calories; E11.40 Type 2 diabetes mellitus with diabetic neuropathy, unspecified; M14.671 Charcot's joint, right ankle and foot; L97.522 Non-pressure chronic ulcer of other part of left foot with fat layer exposed; E11.52 Type 2 diabetes mellitus with diabetic peripheral angiopathy with gangrene; Z68.36 Body mass index [BMI] 36.0-36.9, adult | CPT/HCPCS: 11042; 17250 ==

== ENCOUNTER 2023-08-05 13:03 | Emergency (ER) | payer MEDICARE, MEDICAID ==
[~2023-08-05] VITALS: Ht 185.5 cm; Wt 124.8 kg
--- NOTE | 2023-08-05 13:55 | ED General ---
General Chief Complaint: General Problems/Pain Stated Complaint: LOW BLOOD SUGAR, WEAKNESS, HARD OF HEARING Nursing Triage Note: Patient c/o low blood sugar this am and states his BS was 64. Patient states the staff at the senior living gave him OJ and states his blood sugar went up to 80. Patient states his bilat. LE became weak and states he was unable to ambulate after his blood sugar was low. Patient denies having to use a cane, walker, or wheelchair to get around before this incident. Patient denies any ZEPEDA or weakness to any extremity. Patient states he feels like the Left side of his face is swollen, but denies any numbness or tingling to his face. Patient denies any fevers, cough, cold, nausea, vomiting, or diarrhea. Source of Information: Patient Exam Limitations: No Limitations (BENNETT WEINBERG) History of Present Illness Date Seen by Provider: Aug 05, 2023 Time Seen by Provider: 13:48 Initial Comments 72yo M with PMH of epilepsy, IDDM, chronic left sided weakness, and irregular heart beat presents to the ED with c/o new onset weakness that started just prior to arrival. Pt states that he started to feel diffusely weak right after lunch. Pt took 65 units of insulin prior to lunch, which was a single chicken breast. Pt's BS was found to be 64, at which time he was given OJ which brought his BS up to 80. Pt states that weakness persisted after this though, causing him to have difficulties walking which prompted him to come the ED for evaluation. In room, pt states that weakness has improved since arrival and states that it feels like his blood sugar is still low. Pt also notes some left sided facial swelling that occurred around the same time. Pt states that this is not new and experiences intermittent facial swelling and pain, independent of his weakness, that started after he had "part of his brain removed for epilepsy". Pt denies skipping meals today, new sensory/motor deficits, visual disturbances, fever, chills, nausea, vomiting, CP, SOB, and cough. Timing/Duration: 1 Hour Severity: Mild Associated Systoms: Denies Symptoms, Weakness (BENNETT WEINBERG) Allergies and Home Medications Allergies Coded Allergies: NKANo Known Allergies (Verified Allergy, Unknown, 07/08/06) Patient Home Medication List Home Medication List Reviewed: Yes (BENNETT WEINBERG) Allopurinol (Allopurinol) 100 Mg Tablet, 100 MG PO DAILY, (Reported) Entered as Reported by: ARIA HENRIQUEZ on 02/09/18 143 Atorvastatin Calcium (Lipitor) 20 Mg Tablet, 20 MG PO HS, (Reported) Entered as Reported by: JORGE AGGARWAL on 05/04/18 1007 Baclofen (Baclofen) 10 Mg Tablet, 10 MG PO TID, (Reported) Entered as Reported by: ARIA HENRIQUEZ on 02/09/18 143 Buspirone HCl (Buspirone HCl) 5 Mg Tablet, 5 MG PO TID, (Reported) Entered as Reported by: DONTE LARA on 02/26/23 132 Carbidopa/Levodopa (Carbidopa-Levodopa 25-100 Tab) 25 Mg-100 Mg Tablet, 1 EACH PO TID, (Reported) Entered as Reported by: DONTE LARA on 02/26/23 132 Carboxymethylcellulose Sodium (Refresh Plus) 0.5 % Droperette, 1 DROP OP DAILY, (Reported) Entered as Reported by: DONTE LARA on 02/26/23 132 Dulaglutide (Trulicity) 3 Mg/0.5 Ml Pen.injctr, 0.5 ML SQ FRIDAYS, (Reported) Entered as Reported by: DONTE LARA on 02/26/23 132 Finasteride (Finasteride) 5 Mg Tablet, 5 MG PO DAILY, (Reported) Entered as Reported by: ARIA HENRIQUEZ on 02/09/18 143 Gabapentin (Gabapentin) 800 Mg Tablet, 800 MG PO Q8H, (Reported) Entered as Reported by: ARIA HENRIQUEZ on 02/09/18 143 Hydrocodone/Acetaminophen (Hydrocodone-Acetamin 5-325 mg) 5 Mg-325 Mg Tablet, 1 EACH PO Q4H PRN for PAIN-MODERATE (5-7), (Reported) Entered as Reported by: DONTE LARA on 02/26/23 132 Insulin Detemir (Levemir Flextouch) 100 Unit/Ml (3 Ml) Insuln.pen, 87 UNITS SQ BID, (Reported) Entered as Reported by: DONTE LARA on 02/26/23 132 Insulin Regular, Human (Humulin R U-500 Kwikpen) 500/Ml (3) Insuln.pen, 65 UNITS SQ AC, (Reported) Entered as Reported by: DONTE LARA on 02/26/23 1329 Lactulose (Lactulose) 20 Gram/30 Ml Solution, 20 GM PO Q12H PRN for CONSTIPATION-3RD LINE, (Reported) Entered as Reported by: DONTE LARA on 02/26/23 132 Magnesium Oxide (Magnesium) 400 Mg Capsule, 400 MG PO DAILY, (Reported) Entered as Reported by: ABI WILLIS on 05/02/18 1627 Metoprolol Succinate (Metoprolol Succinate) 25 Mg Tab.er.24h, 50 MG PO DAILY, (Reported) Entered as Reported by: DONTE LARA on 02/26/23 1329 Mirtazapine (Mirtazapine) 45 Mg Tablet, 45 MG PO HS, (Reported) Entered as Reported by: DONTE LARA on 02/26/23 132 Omeprazole (Omeprazole) 20 Mg Capsule.dr, 20 MG PO DAILY, (Reported) Entered as Reported by: DAYDAY VIEIRA on 11/02/18 1127 Potassium Chloride (Potassium Chloride) 20 Meq Tab.er.prt, 20 MEQ PO TID, (Repor huan) Entered as Reported by: ARIA HENRIQUEZ on 02/09/18 1439 Sennosides (Senna) 8.6 Mg Tablet, 8.6 MG PO BID, (Reported) Entered as Reported by: JORGE AGGARWAL on 05/04/18 1007 Torsemide (Torsemide) 20 Mg Tablet, 20 MG PO DAILY, (Reported) Entered as Reported by: ARIA HENRIQUEZ on 02/09/18 1439 Venlafaxine HCl (Venlafaxine HCl) 75 Mg Tab, 75 MG PO DAILY, (Reported) Entered as Reported by: DONTE LARA on 02/26/23 1329 Review of Systems Review of Systems Constitutional: No chills, No fever; weakness EENTM: other (left sided facial swelling-chronic); No vision loss Respiratory: no symptoms reported Cardiovascular: no symptoms reported Gastrointestinal: no symptoms reported Genitourinary: no symptoms reported Musculoskeletal: no symptoms reported Skin: no symptoms reported Psychiatric/Neurological: No Symptoms Reported Hematologic/Lymphatic: No Symptoms Reported Immunological/Allergic: no symptoms reported (BENNETT WEINBERG) All Other Systems Reviewed Negative Unless Noted: Yes (BENNETT WEINBERG) Past Yphfdyl-Bvcfcv-Klbikn Hx Patient Social History Tobacco Use?: No Use of E-Cig and/or Vaping dev: No Substance use?: No Alcohol Use?: No (BENNETT WEINBERG) Immunizations Up To Date Tetanus Booster (TDap): Unknown Influenza Vaccine Up-to-Date: No; Not Current First/Initial COVID19 Vaccinat: X4 Second COVID19 Vaccination Volodymyr: X4 Third COVID19 Vaccination Date: X4 (BENNETT WEINBERG) Seasonal Allergies Seasonal Allergies: No (BENNETT WEINBERG) Past Medical History Surgery/Hospitalization HX: DM Surgeries: Yes (shoulder, craniotomy with temporal lobectomy for epilepsy, Vagal Nerve Stim) Appendectomy, Neurological, Orthopedic Respiratory: Yes Sleep Apnea Currently Using CPAP: Yes Cardiac: Yes (tachycardia, ventricular bigeminy) High Cholesterol, Hypertension, Irregular Heartbeat, Palpitations, Valvular Heart Disease Neurological: Yes (epilepsy no seizure since brain sx; chronic left sided weakness) Reproductive Disorders: No Genitourinary: Yes Prostate Problems Gastrointestinal: Yes Gastroesophageal Reflux Musculoskeletal: Yes Arthritis Endocrine: Yes Diabetes, Non-Insulin dep HEENT: Yes (chronic mastoiditis of left side, chronic otits media) Chronic Ear Infection Loss of Vision: Denies Hearing Impairment: Denies Cancer: Yes Skin Psychosocial: Yes Depression Integumentary: No Blood Disorders: No (BENNETT WEINBERG) Family Medical History Alzheimer's disease 19 MOTHER FH: depression 19 MOTHER Physical Exam Vital Signs Vital Signs - First Documented 08/05/23 13:11 Temp 36.5 Pulse 74 Resp 12 B/P (MAP) 142/74 (96) O2 Delivery Room Air (MARCO VYAS MD) Vital Signs Capillary Refill : (BENNETT WEINBERG) Height, Weight, BMI Height: 6'1.00" Weight: 265lbs. 0.0oz. 120.381504oh; 36.00 BMI Method:Stated General Appearance: No Apparent Distress, WD/WN HEENT: PERRL/EOMI, Moist Mucous Membranes Respiratory: Lungs Clear, Normal Breath Sounds, No Accessory Muscle Use, No Respiratory Distress Cardiovascular: Regular Rate, Rhythm, No Gallop Gastrointestinal: Non Tender, Soft Extremity: Other (walking boot on right foot ) Neurologic/Psychiatric: Alert, Oriented x3, No Motor/Sensory Deficits (baseline left sided extremity weakness), Normal Mood/Affect, range master II-XII Norm as Tested Skin: Normal Color, Warm/Dry Lymphatic: No Adenopathy (BENNETT WEINBERG) Progress/Results/Core Measures Suspected Sepsis SIRS Temperature: Pulse: 74 Respiratory Rate: 12 Blood Pressure 142 /74 Mean: 96 (BENNETT WEINBERG) Results/Orders Lab Results Laboratory Tests Test 08/05/23 13:27 08/05/23 15:18 Range/Units Glucometer 96 108 70-110 MG/DL (MARCO VYAS MD) My Orders Orders - MARCO VYAS MD Accucheck Stat ONCE (08/05/23 14:52) (MARCO VYAS MD) Vital Signs/I&O 08/05/23 13:11 Temp 36.5 Pulse 74 Resp 12 B/P (MAP) 142/74 (96) O2 Delivery Room Air (MARCO VYAS MD) Vital Signs/I&O Capillary Refill : (BENNETT WEINBERG) Blood Pressure Mean: 96 Point of Care Testing Finger Stick Blood Glucose: 96 (BENNETT WEINBERG) Departure Impression Primary Impression: Hypoglycemia Disposition: 01 HOME, SELF-CARE Condition: Stable Departure-Patient Inst. Decision time for Depature: 15:42 (MARCO VYAS MD) Referrals: ALFIE GUEVARA DO (PCP/Family) Primary Care Physician Patient Instructions: Low Blood Sugar, Adult ED Add. Discharge Instructions: Dr Guevara is changing your lunchtime Insulin to 30 units if you are going to restrict carbohydrates. If you care going to eat normally you can continue the higher dose of insulin. Monitor your sugars closely. Return to the Emergency Department for any new, concerning or emergent complaints. BENNETT WEINBERG Aug 05, 2023 13:55 MARCO VYAS MD Aug 05, 2023 15:44
[2023-08-05 15:46] VITALS: BP 125/68
== END 2023-08-05 15:55 | disposition home or self-care (01) ==
LOC: EDUNIT# 13:03 → ER 13:06
DX: E11.649 Type 2 diabetes mellitus with hypoglycemia without coma (principal); G47.30 Sleep apnea, unspecified; Z99.89 Dependence on other enabling machines and devices
CPT/HCPCS: 82947

== ENCOUNTER → 2023-08-06 | Outpatient (CLI) | payer MEDICARE, MEDICAID | LOC: WOUNDCARE 12:44 | PROVIDERS: ATTEND Family Medicine | DX: I96 Gangrene, not elsewhere classified (principal); E11.621 Type 2 diabetes mellitus with foot ulcer; E11.65 Type 2 diabetes mellitus with hyperglycemia; E11.40 Type 2 diabetes mellitus with diabetic neuropathy, unspecified; L97.512 Non-pressure chronic ulcer of other part of right foot with fat layer exposed; E66.01 Morbid (severe) obesity due to excess calories; Z68.36 Body mass index [BMI] 36.0-36.9, adult; M14.671 Charcot's joint, right ankle and foot | CPT/HCPCS: 11042 ==

== ENCOUNTER → 2023-08-13 | Outpatient (CLI) | payer MEDICARE, MEDICAID | LOC: WOUNDCARE 13:04 | PROVIDERS: ATTEND Family Medicine | DX: L97.512 Non-pressure chronic ulcer of other part of right foot with fat layer exposed (principal); I96 Gangrene, not elsewhere classified; E11.621 Type 2 diabetes mellitus with foot ulcer; E11.65 Type 2 diabetes mellitus with hyperglycemia; E11.40 Type 2 diabetes mellitus with diabetic neuropathy, unspecified; M14.671 Charcot's joint, right ankle and foot; E66.01 Morbid (severe) obesity due to excess calories; Z68.36 Body mass index [BMI] 36.0-36.9, adult | CPT/HCPCS: 11042 ==

== ENCOUNTER → 2023-08-20 | Outpatient (CLI) | payer MEDICARE, MEDICAID | LOC: WOUNDCARE 12:33 | PROVIDERS: ATTEND Family Medicine | DX: L97.512 Non-pressure chronic ulcer of other part of right foot with fat layer exposed (principal); E11.621 Type 2 diabetes mellitus with foot ulcer; E11.65 Type 2 diabetes mellitus with hyperglycemia; E66.01 Morbid (severe) obesity due to excess calories; Z68.36 Body mass index [BMI] 36.0-36.9, adult; E11.40 Type 2 diabetes mellitus with diabetic neuropathy, unspecified; M14.671 Charcot's joint, right ankle and foot | CPT/HCPCS: 15275 ==

== ENCOUNTER → 2023-08-21 | Outpatient (CLI) | payer MEDICARE, MEDICAID ==
[~2023-08-21] MED LIST changes: +GADOTERATE 0.5 MMOL/ML (CLARISCAN) 20 ML VIAL IV ONE
--- NOTE | 2023-08-21 20:22 | Diagnostic Imaging Report ---
PROCEDURE: MR imaging right lower extremity with and without contrast. TECHNIQUE: Multiplanar, multisequence pre and post contrast-enhanced MR imaging of the right lower extremity was accomplished. INDICATION: Dermal ulcer within the great toe. COMPARISON: None available. FINDINGS: There is some subtle T2 hyperintense signal in the intramedullary space of the great toe distal phalanx. This has minimal T1 hypointensity without cortical destruction. The great toe proximal phalanx is normal. No features of septic arthritis at the 1st MTP. The remainder of the osseous structures of the forefoot are normal. Fatty atrophy of the intrinsic muscle foot is likely due to chronic denervation changes associated with long-standing diabetes. No drainable abscess. IMPRESSION: 1. Subtle marrow changes within the great toe distal phalanx could in part be due to artifact associated with a small structure and distal location within the magnet. Allowing for this, there is a small possibility that this could represent early osteomyelitis, especially if patient's ulcer is immediately adjacent to the great toe distal phalanx. 2. No soft tissue abscess is in the forefoot. Dictated by: Dictated on workstation # [id number]
== END ==
LOC: RAD 11:34
PROVIDERS: ATTEND Family Medicine
DX: L97.512 Non-pressure chronic ulcer of other part of right foot with fat layer exposed (principal)
CPT/HCPCS: 73720

== ENCOUNTER → 2023-09-03 | Outpatient (CLI) | payer MEDICARE, MEDICAID ==
[~2023-09-03] MED LIST changes: -GADOTERATE 0.5 MMOL/ML (CLARISCAN) 20 ML VIAL IV ONE
== END ==
LOC: WOUNDCARE 12:19
PROVIDERS: ATTEND Family Medicine
DX: L97.512 Non-pressure chronic ulcer of other part of right foot with fat layer exposed (principal); E11.621 Type 2 diabetes mellitus with foot ulcer; E11.65 Type 2 diabetes mellitus with hyperglycemia; E66.01 Morbid (severe) obesity due to excess calories; Z68.36 Body mass index [BMI] 36.0-36.9, adult; E11.40 Type 2 diabetes mellitus with diabetic neuropathy, unspecified; M14.671 Charcot's joint, right ankle and foot
CPT/HCPCS: 99213

== ENCOUNTER → 2023-09-17 | Outpatient (CLI) | payer MEDICARE, MEDICAID | LOC: WOUNDCARE 13:00 | PROVIDERS: ATTEND Family Medicine | DX: I96 Gangrene, not elsewhere classified (principal); E11.621 Type 2 diabetes mellitus with foot ulcer; E11.65 Type 2 diabetes mellitus with hyperglycemia; E11.40 Type 2 diabetes mellitus with diabetic neuropathy, unspecified; L97.512 Non-pressure chronic ulcer of other part of right foot with fat layer exposed; M14.671 Charcot's joint, right ankle and foot; E66.01 Morbid (severe) obesity due to excess calories; Z68.36 Body mass index [BMI] 36.0-36.9, adult | CPT/HCPCS: 15275 ==

== ENCOUNTER → 2023-09-24 | Outpatient (CLI) | payer MEDICARE, MEDICAID | LOC: WOUNDCARE 12:38 | PROVIDERS: ATTEND Family Medicine | DX: E11.621 Type 2 diabetes mellitus with foot ulcer (principal); L97.512 Non-pressure chronic ulcer of other part of right foot with fat layer exposed; E11.65 Type 2 diabetes mellitus with hyperglycemia; E11.40 Type 2 diabetes mellitus with diabetic neuropathy, unspecified; M14.671 Charcot's joint, right ankle and foot; E66.01 Morbid (severe) obesity due to excess calories; Z68.36 Body mass index [BMI] 36.0-36.9, adult | CPT/HCPCS: 99212 ==

== ENCOUNTER → 2023-10-10 | Outpatient (CLI) | payer MEDICARE, MEDICAID | LOC: WOUNDCARE 10:45 | PROVIDERS: ATTEND Family Medicine | DX: E11.622 Type 2 diabetes mellitus with other skin ulcer (principal); I96 Gangrene, not elsewhere classified; E11.65 Type 2 diabetes mellitus with hyperglycemia; E11.40 Type 2 diabetes mellitus with diabetic neuropathy, unspecified; L97.212 Non-pressure chronic ulcer of right calf with fat layer exposed; I89.0 Lymphedema, not elsewhere classified; E66.01 Morbid (severe) obesity due to excess calories; A49.9 Bacterial infection, unspecified; Y82.8 Other medical devices associated with adverse incidents; Z68.36 Body mass index [BMI] 36.0-36.9, adult | CPT/HCPCS: 11042 ==

== ENCOUNTER → 2023-10-14 | Outpatient (CLI) | payer MEDICARE, MEDICAID | LOC: WOUNDCARE 12:55 | PROVIDERS: ATTEND Family Medicine | DX: E11.65 Type 2 diabetes mellitus with hyperglycemia (principal); E66.01 Morbid (severe) obesity due to excess calories; Z68.36 Body mass index [BMI] 36.0-36.9, adult; E11.40 Type 2 diabetes mellitus with diabetic neuropathy, unspecified; L97.212 Non-pressure chronic ulcer of right calf with fat layer exposed; Y82.8 Other medical devices associated with adverse incidents; I89.0 Lymphedema, not elsewhere classified; E11.622 Type 2 diabetes mellitus with other skin ulcer; E11.52 Type 2 diabetes mellitus with diabetic peripheral angiopathy with gangrene; I96 Gangrene, not elsewhere classified | CPT/HCPCS: 11042 ==

== ENCOUNTER → 2023-10-22 | Outpatient (CLI) | payer MEDICARE, MEDICAID | LOC: WOUNDCARE 12:21 | PROVIDERS: ATTEND Family Medicine | DX: E11.65 Type 2 diabetes mellitus with hyperglycemia (principal); E66.01 Morbid (severe) obesity due to excess calories; E11.40 Type 2 diabetes mellitus with diabetic neuropathy, unspecified; L97.212 Non-pressure chronic ulcer of right calf with fat layer exposed; I89.0 Lymphedema, not elsewhere classified; E11.622 Type 2 diabetes mellitus with other skin ulcer; Y82.8 Other medical devices associated with adverse incidents; Z68.36 Body mass index [BMI] 36.0-36.9, adult | CPT/HCPCS: 99212 ==

== ENCOUNTER → 2023-11-06 | Outpatient (CLI) | payer MEDICARE, MEDICAID ==
[2023-11-06 10:32] LABS: BASOPHILS # (AUTO) 0.1 10^3/uL (0.0-0.1); BASOPHILS % (AUTO) 1 % (0-10); EOSINOPHILS # (AUTO) 0.2 10^3/uL (0.0-0.3); EOSINOPHILS % (AUTO) 3 % (0-10); HEMATOCRIT 40 % (40-54); HEMOGLOBIN 12.9 g/dL (13.3-17.7); LYMPHOCYTES # (AUTO) 1.6 10^3/uL (1.0-4.0); LYMPHOCYTES % (AUTO) 23 % (12-44); MEAN CORPUSCULAR HEMOGLOBIN 28 pg (25-34); MEAN CORPUSCULAR HGB CONC 33 g/dL (32-36); MEAN CORPUSCULAR VOLUME 87 fL (80-99); MEAN PLATELET VOLUME 10.2 fL (9.0-12.2); MONOCYTES # (AUTO) 0.6 10^3/uL (0.0-1.0); MONOCYTES % (AUTO) 9 % (0-12); NEUTROPHILS # (AUTO) 4.4 10^3/uL (1.8-7.8); NEUTROPHILS % (AUTO) 64 % (42-75); PLATELET COUNT 162 10^3/uL (130-400); WHITE BLOOD COUNT 6.8 10^3/uL (4.3-11.0)
[2023-11-06 10:59] LABS: ERYTHROCYTE SEDIMENTATION RATE 62 MM/HR (0-30)
== END ==
LOC: WOUNDCARE 09:49
PROVIDERS: ATTEND Family Medicine
DX: E66.01 Morbid (severe) obesity due to excess calories (principal); E11.40 Type 2 diabetes mellitus with diabetic neuropathy, unspecified; I89.0 Lymphedema, not elsewhere classified; Y82.8 Other medical devices associated with adverse incidents; L97.512 Non-pressure chronic ulcer of other part of right foot with fat layer exposed; M21.371 Foot drop, right foot; M14.671 Charcot's joint, right ankle and foot; E11.621 Type 2 diabetes mellitus with foot ulcer; Z68.36 Body mass index [BMI] 36.0-36.9, adult; E11.52 Type 2 diabetes mellitus with diabetic peripheral angiopathy with gangrene
CPT/HCPCS: 11042; 36415; 83036; 85025; 85652; 86141; 87070; 87077; 87186; 87205